=== PATIENT | female | born 1990 | race Caucasian/White ===

== ENCOUNTER → 2022-03-23 | Outpatient (CLI) | payer BC, SELFPAY ==
[2022-03-23 11:27] LABS: T4 Free Direct 1.04 ng/dL (0.76-1.46); Thyroid Stim Hormone (TSH) 2.58 uIU/mL (0.358-3.74)
== END | disposition home or self-care (01) ==
PROVIDERS: PCP Family Medicine; Visit Provider Obstetrics & Gynecology Reproductive Endocrinology
DX: E02 Subclinical iodine-deficiency hypothyroidism (principal)
CPT/HCPCS: 36415; 84439; 84443

== ENCOUNTER → 2022-03-27 | Outpatient (CLI) | payer BC, SELFPAY ==
[2022-03-27 09:41] LABS: T4 Free Direct 1.03 ng/dL (0.76-1.46); Thyroid Stim Hormone (TSH) 2.88 uIU/mL (0.358-3.74)
[2022-03-29 00:06] LABS: Thyroid Peroxidase AB < 8 IU/mL (0-34)
[2022-03-29 09:05] LABS: Thyroglobulin Antibody < 1.0 IU/mL (0.0-0.9)
== END | disposition home or self-care (01) ==
LOC: LAB 08:35
PROVIDERS: PCP Family Medicine; Referring Provider Obstetrics & Gynecology Reproductive Endocrinology; Visit Provider Obstetrics & Gynecology Reproductive Endocrinology
DX: E02 Subclinical iodine-deficiency hypothyroidism (principal)
CPT/HCPCS: 36415; 84439; 84443; 86376; 86800

== ENCOUNTER → 2022-04-25 | Outpatient (CLI) | payer OTHER, BC, SELFPAY ==
[2022-04-25 10:35] LABS: T4 Free Direct 1.14 ng/dL (0.76-1.46); Thyroid Stim Hormone (TSH) 2.16 uIU/mL (0.358-3.74)
== END | disposition home or self-care (01) ==
PROVIDERS: PCP Family Medicine; Referring Provider Obstetrics & Gynecology Reproductive Endocrinology; Visit Provider Obstetrics & Gynecology Reproductive Endocrinology
DX: E02 Subclinical iodine-deficiency hypothyroidism (principal)
CPT/HCPCS: 36415; 84439; 84443

== ENCOUNTER → 2022-07-11 | Outpatient (CLI) | payer OTHER, SELFPAY ==
[2022-07-13 22:06] LABS: Chlamydia By Nucleic Acid AMP Negative (Negative)
[2022-07-13 22:35] LABS: Gonococcus By Nucleic Acid AMP Negative (Negative)
== END | disposition home or self-care (01) ==
LOC: LABSPEC 14:05
PROVIDERS: PCP Family Medicine; Visit Provider Obstetrics & Gynecology
DX: Z34.90 Encounter for supervision of normal pregnancy, unspecified, unspecified trimester (principal)
CPT/HCPCS: 87086; 87088; 87491; 87591

== ENCOUNTER → 2022-07-17 | Outpatient (CLI) | payer OTHER, SELFPAY ==
[2022-07-17 12:53] LABS: NATERA MAILED SPECIMEN
[2022-07-17 15:23] LABS: Absolute Lymphocyte Count 1.91 X10^3/uL (0.83-4.51); Basophil# 0.05 X10^3/uL; Basophil% 0.5 % (0-1); Eosinophil# 0.31 X10^3/uL; Eosinophils% 3.1 % (0-5); Hematocrit 39.2 % (37-47); Hemoglobin 14.3 g/dL (12.0-15.0); Lymphocyte # 1.91 X10^3/ul (0.83-4.51); Lymphocyte % 19.4 % (19-41); Mean Corp Hgb Conc 36.5 g/dL (32-36); Mean Corpuscular Hgb 32.9 pg (27.0-32.0); Mean Corpuscular Volume 90.1 fL (81-99); Mean Platelet Vol. 12.4 fl (6.2-12.0); Monocyte# 0.49 X10^3/uL; NRBC Flagged by Analyzer 0 % (0-5); Neutrophil # 7.03 X10^3/uL (2.7-7.7); Neutrophil % 71.3 % (47-70); Platelet Count 220 K/mm3 (150-450); RBC Distribution Width SD 42.7 fl (35.1-43.9); Red Blood Count 4.35 M/mm3 (4.2-5.4); White Blood Count 9.9 K/mm3 (4.4-11.0)
[2022-07-17 15:46] LABS: Thyroid Stim Hormone (TSH) 0.66 uIU/mL (0.358-3.74)
[2022-07-17 22:01] LABS: HIV - WCH Non-Reactive (Nonreactive); Hepatitis B Surface Antigen Non-Reactive (Nonreactive); Hepatitis C Antibody Non-Reactive (Nonreactive); Rubella IgG Reactive (Nonreactive); Syphilis Antibodies Non-reactive
== END | disposition home or self-care (01) ==
LOC: MTLAB 11:47
PROVIDERS: PCP Family Medicine; Referring Provider Obstetrics & Gynecology; Visit Provider Obstetrics & Gynecology
DX: Z34.90 Encounter for supervision of normal pregnancy, unspecified, unspecified trimester (principal)
CPT/HCPCS: 36415; 84443; 85025; 86703; 86762; 86780; 86803; 86850; 86900; 86901; 87340

== ENCOUNTER → 2022-08-29 | Outpatient (CLI) | payer OTHER, SELFPAY ==
[2022-08-29 15:39] LABS: Thyroid Stim Hormone (TSH) 0.92 uIU/mL (0.358-3.74)
== END | disposition home or self-care (01) ==
PROVIDERS: PCP Family Medicine; Referring Provider Nurse Practitioner Women's Health; Visit Provider Nurse Practitioner Women's Health
DX: Z36.1 Encounter for antenatal screening for raised alphafetoprotein level (principal); E03.9 Hypothyroidism, unspecified
CPT/HCPCS: 36415; 84439; 84443

== ENCOUNTER → 2022-09-21 | Outpatient (CLI) | payer OTHER, SELFPAY ==
--- NOTE | 2022-09-21 13:18 | US_ITS ---
STUDY: SECOND AND THIRD TRIMESTER OBSTETRICAL ULTRASOUND REASON FOR EXAM: Female, 32 years old encounter for anatomy scan LMP: TECHNIQUE: Transabdominal and transvaginal TECHNICAL QUALITY: Adequate. PRIOR ULTRASOUND: None. FINDINGS: There is a single intrauterine fetus. The fetus is in a cephalic presentation. There is demonstrated cardiac activity with a heart rate of 158 bpm. There is a normal amniotic fluid volume. The largest amniotic fluid pocket measures 5.6 x 3.9 cm.. The placenta is anterior and low-lying 1.6 cm distal to the internal os There are Grade 1 placental changes. The cervix measures 4.6 cm in length. The bilateral adnexal regions are normal. BIOMETRY: BPD: 4.7 cm: 20 weeks, 2 days HC: 17.2 cm: 19 weeks, 6 days AC: 15.3 cm: 20 weeks, 3 days FL: 3.4 cm: 20 weeks, 5 days CI: 0.79 FL/BPD: 0.72 FL/HC: FL/AC: 0.22 HC/AC: 1.13 age by current US: 20 weeks, 0 days. TETO by current US: February 08, 2023. Estimated weight: 360 grams, +/- 54 grams, 67 %.. Age by LMP: 20 weeks, 1 days. TETO by LMP: February 07, 2023. ANATOMY: Cranium: Normal lateral ventricles. Normal choroid plexus. Normal cerebellum. Normal cisterna magna. Normal face, nose and lips. Chest: Normal 4-chamber heart. Abdomen/Pelvis: Normal diaphragm. Normal stomach. Normal abdominal wall. Normal cord insertion. Normal 3 vessel cord. Normal kidneys. Normal bladder. Spine: Normal cervical spine. Normal thoracic spine. Normal lumbar spine. Normal sacrum. Extremities: Normal bilateral upper extremities. Normal bilateral lower extremities. IMPRESSION: Viable intrauterine gestation approximately 20 weeks gestational age. Low-lying anterior placenta but no evidence for placenta previa No significant abnormality Electronically Signed: John Ferguson MD at 22:08 EDT , STUDY: Second TRIMESTER OBSTETRICAL ULTRASOUND REASON FOR EXAM: Female, 32 years old encounter for anatomy scan LMP: TECHNIQUE: Transvaginal TECHNICAL QUALITY: Adequate. PRIOR ULTRASOUND: None. FINDINGS: There is a viable intrauterine gestation approximately 20 weeks gestational age with fetus currently in cephalic position and the EDC of February 08, 2023. cardiac activity is noted with heart rate of 158 bpm. . Amniotic fluid index is normal with largest pocket of 5.6 x 3.9 cm. Placenta is anterior in location demonstrating grade 1 physiology without evidence for placenta previa. Examination of the fetus demonstrated no evidence for gross anomaly. US/OB Anatomy Scan IMPRESSION: Viable intrauterine gestation approximately 20 weeks gestational age without significant abnormality Electronically Signed: John Ferguson MD at 22:11 EDT ,
== END | disposition home or self-care (01) ==
LOC: OPUS 13:17
PROVIDERS: PCP Family Medicine; Referring Provider Obstetrics & Gynecology; Visit Provider Obstetrics & Gynecology
DX: O09.90 Supervision of high risk pregnancy, unspecified, unspecified trimester (principal); Z3A.00 Weeks of gestation of pregnancy not specified
CPT/HCPCS: 76805; 76817

== ENCOUNTER → 2022-10-25 | Outpatient (CLI) | payer OTHER, SELFPAY | END | disposition home or self-care (01) | LOC: LABSPEC 13:17 | PROVIDERS: PCP Family Medicine; Referring Provider Advanced Practice Midwife; Visit Provider Advanced Practice Midwife | DX: R59.1 Generalized enlarged lymph nodes (principal); A49.9 Bacterial infection, unspecified | CPT/HCPCS: 87070; 87205 ==

== ENCOUNTER → 2022-10-26 | Outpatient (CLI) | payer OTHER, SELFPAY | END | disposition home or self-care (01) | LOC: MTLAB 14:40 | PROVIDERS: PCP Family Medicine; Referring Provider Advanced Practice Midwife; Visit Provider Advanced Practice Midwife | DX: A49.9 Bacterial infection, unspecified (principal) | CPT/HCPCS: 87086; 87088 ==

== ENCOUNTER → 2022-11-16 | Outpatient (CLI) | payer OTHER, SELFPAY ==
--- NOTE | 2022-11-16 14:13 | US_ITS ---
STUDY: SECOND AND THIRD TRIMESTER OBSTETRICAL ULTRASOUND - LIMITED REASON FOR EXAM: Female, 32 years old placenta location LMP: May 03, 2022. PRIOR ULTRASOUND: Comparison is made with prior study dated September 21, 2022. TECHNIQUE: Transabdominal TECHNICAL QUALITY: Adequate. FINDINGS: There is a single intrauterine fetus. The fetus is in a cephalic presentation. There is demonstrated cardiac activity with a heart rate of 165 bpm. There is a normal amniotic fluid volume. The largest amniotic fluid pocket measures 4.1 cm x 5.6 cm. The amniotic fluid index (ANTHONY) is within normal limits. The placenta is anterior in location and is not low lying. There are Grade 0 placental changes. The cervix measures 3.4 cm in length. BIOMETRY: Age by LMP: 28 weeks, 1 days. TETO by LMP: February 07, 2023. US/OB Limited (No Biometrics) IMPRESSION: The placenta lies along the anterior wall of the uterus. No evidence of placenta previa. Electronically Signed: Rashaun Mcmanus MD at 11:20 EDT ,
[2022-11-16 14:17] LABS: Absolute Lymphocyte Count 2.73 X10^3/uL (0.83-4.51); Absolute Neutrophil Count 10.4 X10^3/uL (2.0-7.7); Basophil# 0.09 X10^3/uL; Basophil% 0.6 % (0-1); Eosinophils% 2.7 % (0-5); Hematocrit 35.6 % (37-47); Hemoglobin 12.9 g/dL (12.0-15.0); Lymphocyte # 2.73 X10^3/ul (0.83-4.51); Lymphocyte % 18.3 % (19-41); Mean Corp Hgb Conc 36.2 g/dL (32-36); Mean Corpuscular Hgb 35.2 pg (27.0-32.0); Mean Corpuscular Volume 97.3 fL (81-99); Mean Platelet Vol. 11.9 fl (6.2-12.0); Monocyte# 1.05 X10^3/uL; NRBC Flagged by Analyzer 0.2 % (0-5); Neutrophil # 10.38 X10^3/uL (2.7-7.7); Neutrophil % 69.5 % (47-70); Platelet Count 203 K/mm3 (150-450); RBC Distribution Width CV 15.9 % (11.6-14.6); RBC Distribution Width SD 56.6 fl (35.1-43.9); Red Blood Count 3.66 M/mm3 (4.2-5.4); White Blood Count 14.9 K/mm3 (4.4-11.0)
[2022-11-16 14:46] LABS: Glucose Challenge Gest 1H 50g 134 mg/dL (70-140)
[2022-11-16 15:19] LABS: HIV - WCH Non-Reactive (Nonreactive); Syphilis Antibodies Non-reactive
== END | disposition home or self-care (01) ==
LOC: OPUS 13:53
PROVIDERS: Advanced Practice Midwife; PCP Family Medicine; Referring Provider Obstetrics & Gynecology; Visit Provider Obstetrics & Gynecology
DX: O09.90 Supervision of high risk pregnancy, unspecified, unspecified trimester (principal); O44.40 Low lying placenta NOS or without hemorrhage, unspecified trimester; Z3A.00 Weeks of gestation of pregnancy not specified
CPT/HCPCS: 76815; 82950; 85025; 86703; 86780; 86900; 86901

== ENCOUNTER → 2022-11-29 | Outpatient (CLI) | payer OTHER, SELFPAY ==
[2022-11-29 18:08] LABS: T4 Free Direct 0.84 ng/dL (0.76-1.46)
== END | disposition home or self-care (01) ==
LOC: LAB 16:15
PROVIDERS: PCP Family Medicine; Referring Provider Obstetrics & Gynecology; Visit Provider Obstetrics & Gynecology
DX: E03.9 Hypothyroidism, unspecified (principal)
CPT/HCPCS: 36415; 84439; 84443

== ENCOUNTER → 2022-12-01 | Outpatient (CLI) | payer OTHER, SELFPAY ==
--- NOTE | 2022-12-01 13:04 | VDLE_ITS ---
Reason For Study: RT GROIN PAIN RIGHT GSV is normal. CFV is compressible, spontaneous, phasic, competent and demonstrates normal augmentation. FV is compressible, spontaneous, phasic, competent and demonstrates normal augmentation. POP V is compressible, spontaneous, phasic, competent and demonstrates normal augmentation. T/P Trunk is compressible. PTV is compressible. RT PerV is compressible. Procedure This is a venous duplex using B-mode, color flow and spectral Doppler. Exam performed in department. A preliminary report was called and/or faxed to Dr. Weeks @ [phone] @ 1:50 pm. VL/Venous Duplex US, Unilateral Interpretation Summary There is no evidence of right lower extremity deep vein thrombosis. Right great saphenous vein appears patent and compressible segmentally. Ordering Physician: Paola Weeks Referring Physician: Shannan Fabian Performed By: Kristie Esteves, KEYON, RVT
--- NOTE | 2022-12-01 13:41 | US_ITS ---
HISTORY: right groin mass, palpable lump. TECHNIQUE: Routine and color duplex imaging of the right groin. 14 images. Comparison none. FINDINGS: RIGHT GROIN: 3 x 10 x 10 mm oval hypoechoic nodule in the region of interest US/Ext Non Vasc Limited/Soft Tiss IMPRESSION: 1 cm nodule or lymph node in the right groin, nonspecific. Electronically Signed: Aby Lino MD at 12:53 EDT ,
== END | disposition home or self-care (01) ==
LOC: CVS 13:03
PROVIDERS: PCP Family Medicine; Referring Provider Obstetrics & Gynecology; Visit Provider Obstetrics & Gynecology
DX: R10.30 Lower abdominal pain, unspecified (principal)
CPT/HCPCS: 76882; 93971

== ENCOUNTER → 2023-01-10 | Outpatient (CLI) | payer OTHER, SELFPAY | END | disposition home or self-care (01) | PROVIDERS: PCP Family Medicine; Visit Provider Obstetrics & Gynecology | DX: O09.90 Supervision of high risk pregnancy, unspecified, unspecified trimester (principal); Z3A.00 Weeks of gestation of pregnancy not specified | CPT/HCPCS: 87081 ==

== ENCOUNTER → 2023-01-22 | Outpatient (CLI) | payer OTHER, SELFPAY ==
--- NOTE | 2023-01-22 08:46 | US_ITS ---
STUDY: SECOND AND THIRD TRIMESTER OBSTETRICAL ULTRASOUND - LIMITED REASON FOR EXAM: Female, 33 years old growth LMP: May 06, 2022. PRIOR ULTRASOUND: Comparison is made with prior study dated September 21, 2022. TECHNIQUE: Transabdominal TECHNICAL QUALITY: Adequate. FINDINGS: There is a single intrauterine fetus. The fetus is in a cephalic presentation. There is demonstrated cardiac activity with a heart rate of 137 bpm. There is a normal amniotic fluid volume. The largest amniotic fluid pocket measures 3.36 cm. The amniotic fluid index (ANTHONY) is 10.18 cm. The placenta is anterior in location and is not low lying. There are Grade 3 placental changes. The cervix was not measured due to head positioning. BIOMETRY: BPD: 9.13 cm: 37 weeks, 0 days HC: 32.86 cm: 37 weeks, 2 days AC: 36.5 cm: 40 weeks, 3 days FL: 7.57 cm: 38 weeks, 5 days Age by LMP: 37 weeks, 4 days. TETO by LMP: February 08, 2023. age by prior US: 37 weeks, 4 days. TETO by prior US: February 08, 2023. age by current US: 38 weeks, 3 days. TETO by current US: February 02, 2023. Estimated weight: 3808 grams, +/- 571 grams, 94 percentile. US/OB Limited With Biometrics IMPRESSION: Single live intrauterine gestation with a mean gestational age of 37 weeks and 4 days. The measurements obtained today fall within the normal expected range. Electronically Signed: Rashaun Mcmanus MD at 15:50 EDT ,
== END | disposition home or self-care (01) ==
LOC: OPUS 08:45
PROVIDERS: PCP Family Medicine; Referring Provider Obstetrics & Gynecology; Visit Provider Obstetrics & Gynecology
DX: Z78.9 Other specified health status (principal)
CPT/HCPCS: 76816

== ENCOUNTER 2023-02-01 19:10 | Inpatient (IN) | payer OTHER, SELFPAY ==
[2023-02-01 19:35] VITALS: BMI 33.0
[2023-02-01 19:49] LABS: Absolute Lymphocyte Count 4.01 X10^3/uL (0.83-4.51); Basophil% 0.6 % (0-1); Eosinophil# 0.26 X10^3/uL; Eosinophils% 1.7 % (0-5); Hematocrit 34.3 % (37-47); Hemoglobin 12.1 g/dL (12.0-15.0); Lymphocyte # 4.01 X10^3/ul (0.83-4.51); Lymphocyte % 25.8 % (19-41); Mean Corp Hgb Conc 35.3 g/dL (32-36); Mean Corpuscular Volume 96.3 fL (81-99); Mean Platelet Vol. 13.5 fl (6.2-12.0); Monocyte# 1.91 X10^3/uL; Monocyte% 12.3 % (0-10); NRBC Flagged by Analyzer 1.2 % (0-5); Neutrophil # 8.99 X10^3/uL (2.7-7.7); Neutrophil % 57.9 % (47-70); POSITIVE DIFFERENTIAL YES; Platelet Count 229 K/mm3 (150-450); RBC Distribution Width CV 16.7 % (11.6-14.6); RBC Distribution Width SD 57.5 fl (35.1-43.9); Red Blood Count 3.56 M/mm3 (4.2-5.4); White Blood Count 15.5 K/mm3 (4.4-11.0)
[2023-02-01 19:54] LABS: Differential Indicated SCAN CRITERIA MET
[2023-02-01 19:55] VITALS: TEMP 36.3
[2023-02-01 19:56] VITALS: BP 121/70
[2023-02-01 19:57] VITALS: PULSE 86; O2SAT 98
[2023-02-01 20:16] LABS: Anisocytosis RARE; Macrocytosis RARE; Platelet Estimate ADEQUATE (ADEQ); Red Cell Morphology N CHROM NORMAL (NORM C&C)
[2023-02-01 20:23] LABS: Syphilis Antibodies Non-reactive
[2023-02-01] MEDS: miSOPROStol 25 MCG TABLET VAGINAL (21:16)
[2023-02-01] MEDS: DiphenhydrAMINE 25 MG Capsule 50 MG PO (22:29)
[2023-02-01 23:58] VITALS: TEMP 36.3
[2023-02-01 23:59] VITALS: BP 112/56; PULSE 77; O2SAT 97
[2023-02-02] VITALS (76 sets, daily range): BP systolic 99–189; BP diastolic 51–117; PULSE 66–108; RESP 16; TEMP 35.9–37.8; O2SAT 80–100
[2023-02-02] MEDS: miSOPROStol 25 MCG TABLET 50 MCG VAGINAL (03:24)
--- NOTE | 2023-02-02 07:50 | PCM.HP.OB ---
HPI - General General Date of Admission: 02/01/23 Date of Service: 02/01/23 HPI Narrative KATIE ARAUJO, is a 33 F at 39.0 weeks who presents for IOL for IVF. Maternal Data Information TETO Calculator Estimated Delivery Date Method Current WG Current Estimate 02/08/23 Manual 39w 1d transfer at 5 day embryo Other Estimates 02/07/23 Ultrasound #1 39w 2d 02/13/23 Conception 38w 3d Final TETO: 02/07/23 Final TETO Source: US >20 weeks Gestational age: 39.1 weeks PFSH PFSH Medical History (Updated 02/02/23 @ 08:00 by Niya Armstrong CNM) COVID-19 Endometriosis Infertility Raynauds syndrome Home Medications multivitamin no.47-iron fum 27 mg-folate no.1 1 mg-dha 300 mg capsule (PNV-DHA) cap PO 07/06/22 [History Last Taken Unknown] albuterol sulfate 90 mcg/actuation aerosol inhaler 2 puff inhalation Q6H PRN shortness of breath or wheezing #8.5 grams 08/22/22 [Rx Last Taken Unknown] levothyroxine 25 mcg tablet 25 mcg PO DAILY #90 tabs 09/26/22 [Rx Last Taken Unknown] Allergy/AdvReac Type Severity Reaction Status Date / Time No Known Allergies Allergy Verified 02/02/23 06:39 Family History Father Lung cancer, Onset Age: 42 Mother Lymphoma, Onset Age: 54 no significant family history Surgical History (Updated 02/01/23 @ 19:40 by Rosemarie Peacock) History of surgery Hx of laparoscopy Hx of tonsillectomy Hx of wisdom tooth extraction Social History adopted: No household members: spouse housing: house current occupational status: employed 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 current occupational exposures/hazards: No pets and animals: Yes pets and animals: dog(s) history of recent travel: No sexually active: Yes Smoking Status: Never smoker alcohol intake: never substance use type: does not use well-balanced diet: daily or most days caffeine: No eating out: rarely or never during the past year weight has: increased > 10 lbs what type of physical activity do you participate in: walking, yoga and weight training frequency: 3-4 times per week duration: 30-45 minutes/day diego/yazidism: None seatbelt use: always do you feel safe at home: Yes additional social history: - Yayo History 1 Elective abortions Hx Para 0 Spontaneous abortions Hx # Term Pregnancies Ectopic pregnancies Hx # Pregnancies Multiple births # of living children Visit Details Expected Delivery Route/Plan Labor Preferences- CB/BF classes: Aug labor support person: [] labor intervention preferences: [] pain management options preferred: [] cut cord/dad catch: [] : yes PP control planned: [] discussed possible routes of delivery and associated risks: [] special requests: [] Plans Covid status: discussed Flu vaccine: discussed Tdap vaccine: [] Rhogam: [] LARC form signed: done Problem list reviewed and updated with the most current plan of care details and appropriate orders placed. Relevant counseling for the gestational age provided. Continue routine care and follow up unless otherwise noted in visit notes/problem list details OB Flowsheet Initial Weight: Not Recorded Date <del>?</del> EGA Weight BP Urine Prot <del>?</del> Glucose FHR FuHt Pres Dilation <del>?</del> Effaced St Visit Note 07/11/22 <del>?</del> 9w 5d 180 lb 124/86 <del>?</del> 171 <del>?</del> JV- IVF preg (transferred at 5 days old) TETO 02/08/23. wants genetic testing. 08/08/22 <del>?</del> 13w 5d 186 lb 6 oz 118/77 Negative <del>?</del> Negative 160 <del>?</del> SM- no vb crmaping 08/29/22 <del>?</del> 16w 5d 190 lb 124/82 Negative <del>?</del> Negative 156 <del>?</del> MH-No Vb, cramping. Plans [facility] anatomy US. Echo scheduled. Thyroid and AFP labs today 09/27/22 <del>?</del> 20w 6d 197 lb 8 oz 127/72 Negative <del>?</del> Negative 145 20 <del>?</del> KW- + FM. KW- + FM. no vb/cramping. no concerns. plan for thyroid labs with 28 week labs 10/25/22 <del>?</del> 24w 6d 200 lb 2 oz 124/90 Negative <del>?</del> Negative 140 24 <del>?</del> KW- +FM. no lof/vb/ctx. patient cancelled Echo. Standing TSH labs. 28 week labs ordered. has palpable lump on right groin. she has had hx of recurrent BV and UTIs. culture done. warm compresses and epsom salt baths until results of cultures. US if negative 11/29/22 <del>?</del> 29w 6d 207 lb 6 oz 118/83 Negative <del>?</del> Negative 147 29 <del>?</del> JV- still has pain in right groin. will order ultrasound. It does feel firm and is tender to touch. normal 1 hr gct. no longer low lying placenta tdap today. needs tsh. 12/14/22 <del>?</del> 32w 0d 208 lb 4 oz 118/74 Negative <del>?</del> Negative 145 31 <del>?</del> KW-+fm. no lof/vb/ctx. no concerns today. larc done. has ALC consult sunday. Babymoon tomorrow 12/27/22 <del>?</del> 33w 6d 212 lb 8 oz 121/79 <del>?</del> 151 34 <del>?</del> JV- no lof, vaginal bleeding, or dec fm. She is getting tired at work and deciding when to stop working. does not want to miss out on time with baby. growth scan for 36 weeks ordered. 01/10/23 <del>?</del> 35w 6d 213 lb 8 oz 115/77 Negative <del>?</del> Negative 138 35.5 Cephalic 0 <del>?</del> JV- pt prefers gbs today. IOL planned or 39 weeks. no lof, vaginal bleeding, or dec fm. 01/22/23 <del>?</del> 37w 4d 206 lb 8 oz 122/83 Negative <del>?</del> Negative 145 37 Cephalic <del>?</del> KW-had growth US today. GBS neg. COVID dx-started on asa 81mg. IOL scheduled for 39 weeks. NST today 01/29/23 <del>?</del> 38w 4d 211 lb 4 oz 211 lb 4 oz 124/84 Negative <del>?</del> Negative 140 38 Cephalic 0.5 <del>?</del> LC- no ctx.vb//lof. iol set up for -cytotec. consent obtained. LC- no ctx.vb//lof. iol set up for -cytotec. consent obtained. nst reactive today in office. NST FHR Rate Baby A Baseline: 135 Variability:: Moderate Accelerations:: 15 x 15 Decelerations:: None NST Reactive:: Yes FHR Category:: Category I Uterine Activity:: 1-3 minutes, mild cramping ROS Constitutional Constitutional: Denies change in weight, fatigue, fever(s), headache(s), poor appetite or weakness Eyes Eyes: Denies blurry vision, change in vision, floaters, seeing flashes or spots in vision ENT HEENT: Denies dizziness, headache(s), loss taste/smell or sore throat Cardiovascular Cardiovascular: Denies chest pain, dizziness, dyspnea, irregular heart rhythm, lightheadedness, palpitations or rapid heart rate Respiratory/Chest Respiratory/Chest: Denies change in mental status, chest tightness, cough, dyspnea or breast pain Gastrointestinal Gastrointestinal: Denies anorexia, chewing difficulty, constipation, diarrhea or weight changes Genitourinary Genitourinary: Denies difficulty urinating, dysuria, flank pain, genital pain, urinary frequency or urinary urgency Musculoskeletal Musculoskeletal: Denies back pain, difficulty walking, extremity pain, joint pain, muscle cramps or muscle weakness Integumentary Integumentary: Denies lesions or unusual bruising Neurologic Neurologic: Denies abnormal movements, abnormal speech, dizziness, numbness, seizure-like activity, syncope or weakness Psychiatric Psychiatric: Denies behavioral changes, change in appetite, confusion, depression, homicidal ideation, suicidal ideation or suicidal thoughts Endocrine Endocrinology: Denies excessive sweating, polydipsia or polyuria Hematologic/Lymphatic Hematologic/Lymphatic: Denies anemia Allergic/Immunologic Allergic/Immunologic: Denies itchy eyes, lip swelling, throat swelling, tongue swelling or wheezing Vital Signs Vital Signs Vital Signs: 02/01/23 19:56 02/01/23 19:57 02/01/23 19:57 Temperature Pulse Rate 86 Blood Pressure 121/70 H BP Systolic 121 BP Diastolic 70 Pulse Ox 98 02/01/23 19:55 02/01/23 23:59 02/01/23 23:59 Temperature 97.3 F L Pulse Rate 77 Blood Pressure 112/56 L BP Systolic 112 BP Diastolic 56 Pulse Ox 02/01/23 23:59 02/01/23 23:58 02/02/23 03:25 Temperature 97.4 F L Pulse Rate Blood Pressure 124/67 H BP Systolic 124 BP Diastolic 67 Pulse Ox 97 02/02/23 03:25 02/02/23 03:25 Temperature 96.6 F L Pulse Rate 70 Blood Pressure BP Systolic BP Diastolic Pulse Ox Weight Weight: 211 lb 6.4 oz Body Mass Index (BMI) 33.0 Physical Exam Const alert, oriented x3 and no apparent distress General Appearance: cooperative Orientation / Consciousness: awake HEENT normocephalic Neck full ROM Lymph Lymphatic: no lymphadenopathy noted Chest inspection of chest normal Resp normal respiratory effort and normal air movement Effort and Inspection: able to speak in complete sentences and symmetric chest movement GI soft to palpation and non-tender Inspection: gravid Palpation: soft; Negative for tender external exam normal Manual OB Exam: presentation cephalic, dilated 3, effaced 70 and station -1 Back/Spine normal to inspection Extremity normal to inspection and full ROM Skin no rashes or lesions noted Psych mental status grossly normal Appearance: grossly normal Speech: normal speech Labs Labs Labs: Blood Type O POSITIVE Antibody Screen NEGATIVE Hct 34.3 % (37-47) L Hgb 12.1 g/dL (12.0-15.0) Obstetrics US Syphilis Total Ab Non-reactive Rubella IgG Antibody Reactive (Nonreactive) Hep Bs Antigen Non-Reactive (Nonreactive) Chlamydia DNA ([place]) Negative (Negative) Neisseria gonorrhoeae DNA ([facility]) Negative (Negative) HIV 1&2 Antibody Non-Reactive (Nonreactive) Glucose 1 Hr 50 gm 134 mg/dL (70-140) Miscellaneous Test Assessment & Plan (1) Recurrent bacterial infection: (2) Lymphadenopathy: COMMENT: suspected. right groin- would like to try warm compresses and epsom salt baths before further testing. ultrasound ordered on 11/29 (3) Low-lying placenta: COMMENT: US @ 28 weeks resolved (4) Hypothyroid: COMMENT: check labs q trimester with 28 week labs (5) Conceived by in vitro fertilization: COMMENT: transfer 05/23/22, plan echo [id number] per pt (6) Supervision of high-risk : COMMENT: PRR , TETO 02/13/23, Yayo (7) : QUALIFIERS: Weeks of gestation: 35 weeks Qualified Code(s): Z3A.35 - 35 weeks gestation of COMMENT: GBS negative. NIPT low risk, declined carrier testing (8) COVID-19: COMMENT: Growth US 01/22:94% (9) Encounter for induction of labor: COMMENT: 39 week IOL for IVF PLAN: Patient presents IOL, plan management for with pitocin/AROM. Pain management: plans epidural. GBS negative. Management of any complications: hypothyroid, IVF I have reviewed the [facility] and made any clinically relevant updates. Charges/Coding Multi Select Codes Urinary/Genital Urinary/Genital CPT Codes: No Charge
[2023-02-02] MEDS: Docusate Sodium 100 MG Capsule PO (08:12)
[2023-02-02] MEDS: 0.9% Saline Lock 10 ML Syringe IV (12:25)
[2023-02-02] MEDS: Lactated Ringers 1,000 ML 50 ML IV (12:30)
[2023-02-02] MEDS: LACTATED RINGERS 500 ML 999 ML IV ×2 (12:53→14:35)
[2023-02-02] MEDS: fentaNYL-bupivacaine (epidural) 100 ML BAG EPIDURAL (14:05)
[2023-02-02] MEDS: Oxytocin 15 Units/NS 250ml 15 UNITS/250 ML IV.SOLN 2 UNITS IV (15:35)
[2023-02-02] MEDS: Ondansetron 4 MG/2 ML Vial IV (18:13)
[2023-02-02] MEDS: Lactated Ringers 1,000 ML 200 ML IV (18:22)
[2023-02-02] MEDS: Methylergonovine 0.2 MG/ML Ampul IM (19:31)
[2023-02-02] MEDS: miSOPROStol 200 MCG Tablet 1000 MCG RC (19:34)
[2023-02-02] MEDS: Oxytocin 15 Units/NS 250ml 15 UNITS/250 ML IV.SOLN 83 UNITS IV (19:42)
--- NOTE | 2023-02-02 20:05 | OP.PCM_ITS ---
Assessment & Plan (1) Vaginal delivery: COMMENT: KW IOL at 39 weeks for IVF, girl 02/17 (2) Hypothyroid: COMMENT: check labs q trimester with 28 week labs (3) Conceived by in vitro fertilization: COMMENT: transfer 05/23/22, plan echo [id number] per pt (4) Supervision of high-risk : COMMENT: PRR , TETO 02/13/23, Yayo (5) : QUALIFIERS: Weeks of gestation: 35 weeks Qualified Code(s): Z3A.35 - 35 weeks gestation of COMMENT: GBS negative. NIPT low risk, declined carrier testing (6) COVID-19: COMMENT: Growth US 01/22:94% Maternal Data Information TETO Calculator 2 Estimated Delivery Date Method Current WG Current Estimate 02/08/23 Manual 39w 1d transfer at 5 day embryo Other Estimates 02/07/23 Ultrasound #1 39w 2d 02/13/23 Conception 38w 3d Final TETO: 02/08/23 Final TETO Source: US >20 weeks Gestational age: 39.1 weeks Vaginal Delivery Maternal Presentation Maternal Presentation: Medically Indicated Induction Maternal Presentation: Patient began pushing and delivered the head in the MAISHA presentation. The head was delivered atraumatically no nuchal cord present. The anterior and posterior shoulders delivered without complication followed by the rest of the and the infant was placed on the maternal abdomen. Delayed cord clamping was employed for approximately 4 minutes. Cord was clamped and cut and gentle t raction was applied to the cord and the placenta delivered spontaneously immediately following it was noted to be intact with three-vessel cord. The perineum and vagina were inspected and noted to have a second degree laceration which was repaired in the usual fashion using 3-0 Rapide. EBL was 400. Patient and tolerated delivery well. Apgars 9/9. 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: Niya Armstrong Type of Anesthesia: Epidural Estimated Blood Loss: 450 Time of Delivery: 17:13 Findings Presentation: Vertex Amniotic Membrane Rupture Type: Artificial Amniotic Fluid Description: Clear Placental Delivery Description: Expressed Placenta Disposition: [facility] Cord Vessel Description: 3 Vessels Cord Entanglement: None Infant A Gender: Female (1 minute): 9 (5 minute): 9 Delayed Cord Clamping: Yes Post Vaginal Delivery Medications Given After Delivery: IV Pitocin, IM Methergin and - (cytotec) Episiotomy Description: None Laceration: 2nd degree Complication Complications: None Multi Select Codes Urinary/Genital Urinary/Genital CPT Codes: 29707 Vaginal Delivery [facility]
--- NOTE | 2023-02-02 20:11 | DCINST_ITS ---
Discharge Instructions Diet Discharge Diet: No restrictions Activity Discharge Activity: Return to Normal Activity May resume sexual activity in: 6-8 weeks Dressing / Incision Call your doctor if you observe: Fever of 101 or Higher, Coldness, Increased Pain, Numbness or Tingling, Change in Color, Inability to urinate, Inability to have a bowel movement, Using more than 1 pad per hour, Shortness of breath, Dizziness, Fainting spells, Swelling in the ankles, Chest pain, Increased palpitations (irregular heartbeat), Calf discomfort and Uncontrolled pain Follow Up Care Please Follow Up With: Niya Armstrong CNM When: Please call the office to schedule your follow up appointment in 6 weeks. If you had high blood pressure please call to schedule an appointment in 2 weeks. Test Results: Test results from this visit will be discussed in further detail at your follow- up appointment, if applicable. Discharge Plan Admission Admit Date/Time: 02/01/23 19:10 Attending Provider: Niya Armstrong Primary Care Provider: NAYANA VAZQUEZ Discharge Orders/Prescriptions Prescriptions: No Action PNV-DHA 27 mg iron-1 mg -300 mg capsule PO levothyroxine 25 mcg tablet 25 mcg PO DAILY Qty: 90 3RF albuterol sulfate 90 mcg/actuation HFA aerosol inhaler 2 puff inhalation Q6H PRN (Reason: shortness of breath or wheezing) Qty: 8.5 0RF Referrals / Follow Up: NAYANA VAZQUEZ DO [Primary Care Provider] - Disposition Disposition (needs filled in before D/C Order can be placed): Home, Self Care
[2023-02-02] MEDS: Ibuprofen 600 MG Tablet PO (21:51)
[2023-02-02] MEDS: Senna/Docusate Sodium 1 Tablet PO (21:52)
[2023-02-03] VITALS (10 sets, daily range): BP systolic 96–147; BP diastolic 54–80; PULSE 64–127; RESP 14–16; TEMP 36.2–36.6; O2SAT 98–100
[2023-02-03] MEDS: Acetaminophen 500 MG Tablet 1000 MG PO ×2 (05:41→20:32)
[2023-02-03 06:41] LABS: Hematocrit 30.2 % (37-47); Mean Corp Hgb Conc 36.4 g/dL (32-36); Mean Corpuscular Hgb 34.9 pg (27.0-32.0); Mean Corpuscular Volume 95.9 fL (81-99); Platelet Count 198 K/mm3 (150-450); RBC Distribution Width SD 57.9 fl (35.1-43.9); Red Blood Count 3.15 M/mm3 (4.2-5.4); White Blood Count 18.7 K/mm3 (4.4-11.0)
--- NOTE | 2023-02-03 08:40 | PCM.PN.OB ---
Subjective Subjective Patient doing well without complaints. Tolerating PO. Ambulating and voiding without difficulty. Feeding well. Denies chest pain, shortness of breath, calf pain/swelling, fevers, chills, lightheadedness. Objective Data Objective Data Vital Signs: Vital Signs Temp Pulse Resp BP Pulse Ox O2 Del Method 97.3 F L 83 15 96/54 L 98 Room Air 02/03/23 03:35 02/03/23 07:48 02/03/23 03:35 02/03/23 07:48 02/03/23 07:48 02/02/23 23:52 Oxygen Delivery Method Room Air Weight: 211 lb 6.4 oz Body Mass Index (BMI) 33.0 Intake & Output: Intake and Output for Last 24 Hours 02/01/23 02/02/23 02/03/23 23:59 23:59 23:59 Intake Total 3092.50 / 3092.50 Output Total 1750 / 1750 400 / 400 Balance 1342.50 / 1342.50 -400 / -400 Lab / Micro Data Attestation: I reviewed the patient's lab results. 02/03/23 06:30 Labs: Laboratory Results - last 24 hr 02/03/23 06:30: WBC 18.7 H, RBC 3.15 L, Hgb 11.0 L, Hct 30.2 L, MCV 95.9, MCH 34.9 H, MCHC 36.4 H, RDW Std Deviation 57.9 H, RDW Coeff of Evens 17.0 H, Plt Count 198, MPV 13.0 H ROS Constitutional Constitutional: Reports systems reviewed and no addt'l complaints, except as documented; Denies anorexia or headache(s) Cardiovascular Cardiovascular: Reports systems reviewed and no addt'l complaints, except as documented; Denies dizziness, dyspnea, nausea or tachypnea Respiratory/Chest Respiratory/Chest: Reports systems reviewed and no addt'l complaints, except as documented; Denies cough, dyspnea, shortness of breath at rest or tachypnea Gastrointestinal Gastrointestinal: Reports systems reviewed and no addt'l complaints, except as documented; Denies abdominal pain, constipation or nausea Genitourinary Genitourinary: Reports systems reviewed and no addt'l complaints, except as documented; Denies burning urination, difficulty urinating, dysuria, urinary frequency or urinary incontinence Musculoskeletal Musculoskeletal: Reports systems reviewed and no addt'l complaints, except as documented Integumentary Integumentary: Reports systems reviewed and no addt'l complaints, except as documented Neurologic Neurologic: Reports systems reviewed and no addt'l complaints, except as documented; Denies abnormal speech, dizziness or headache(s) Psychiatric Psychiatric: Reports systems reviewed and no addt'l complaints, except as documented Endocrine Endocrinology: Reports systems reviewed and no addt'l complaints, except as documented Hematologic/Lymphatic Hematologic/Lymphatic: Reports systems reviewed and no addt'l complaints, except as documented Physical Exam Const alert, oriented x3 and no apparent distress Neck full ROM Resp normal respiratory effort, normal air movement and no retractions Effort and Inspection: able to speak in complete sentences and symmetric chest movement GI soft to palpation Bladder / Kidney Exam: bladder normal to palpation Uterus Palpation: uterus fundus Extremity normal to inspection and full ROM Psych mental status grossly normal, thought process normal and cooperative Assessment & Plan (1) Vaginal delivery: COMMENT: KW IOL at 39 weeks for IVF, girl 02/17 PLAN: s/p PPD # 1 1. routine post delivery care 2. breast feeding- support given 3. rh positive 4. rubella immune (2) Hypothyroid: COMMENT: check labs q trimester with 28 week labs (3) Conceived by in vitro fertilization: COMMENT: transfer 05/23/22, plan echo [id number] per pt (4) Supervision of high-risk : COMMENT: PRR , TETO 02/13/23, Yayo (5) : QUALIFIERS: Weeks of gestation: 35 weeks Qualified Code(s): Z3A.35 - 35 weeks gestation of COMMENT: GBS negative. NIPT low risk, declined carrier testing Charges/Coding Multi Select Codes Urinary/Genital Urinary/Genital CPT Codes: No Charge
[2023-02-03] MEDS: Ibuprofen 600 MG Tablet PO (10:11)
[2023-02-03] MEDS: Senna/Docusate Sodium 1 Tablet PO (20:38)
[2023-02-04] MEDS: Ibuprofen 600 MG Tablet PO (01:24)
[2023-02-04 01:41] VITALS: BP 131/81; PULSE 85; RESP 16; TEMP 36.5
--- NOTE | 2023-02-04 04:16 | PCM.PN.OB ---
Subjective Subjective Patient doing well without complaints. Tolerating PO. Ambulating and voiding without difficulty. Feeding well. Denies chest pain, shortness of breath, calf pain/swelling, fevers, chills, lightheadedness. Objective Data Objective Data Vital Signs: Vital Signs Temp Pulse Resp BP Pulse Ox O2 Del Method 97.7 F L 85 16 131/81 H 99 Room Air 02/04/23 01:41 02/04/23 01:41 02/04/23 01:41 02/04/23 01:41 02/03/23 16:30 02/04/23 01:41 Oxygen Delivery Method Room Air Weight: 211 lb 6.4 oz Body Mass Index (BMI) 33.0 Intake & Output: Intake and Output for Last 24 Hours 02/02/23 02/03/23 02/04/23 23:59 23:59 23:59 Intake Total 3092.50 / 3092.50 Output Total 1750 / 1750 400 / 400 Balance 1342.50 / 1342.50 -400 / -400 Lab / Micro Data Attestation: I reviewed the patient's lab results. 02/03/23 06:30 Labs: Laboratory Results - last 24 hr 02/03/23 06:30: WBC 18.7 H, RBC 3.15 L, Hgb 11.0 L, Hct 30.2 L, MCV 95.9, MCH 34.9 H, MCHC 36.4 H, RDW Std Deviation 57.9 H, RDW Coeff of Evens 17.0 H, Plt Count 198, MPV 13.0 H ROS Constitutional Constitutional: Reports systems reviewed and no addt'l complaints, except as documented; Denies anorexia or headache(s) Cardiovascular Cardiovascular: Reports systems reviewed and no addt'l complaints, except as documented; Denies dizziness, dyspnea, nausea or tachypnea Respiratory/Chest Respiratory/Chest: Reports systems reviewed and no addt'l complaints, except as documented; Denies cough, dyspnea, shortness of breath at rest or tachypnea Gastrointestinal Gastrointestinal: Reports systems reviewed and no addt'l complaints, except as documented; Denies abdominal pain, constipation or nausea Genitourinary Genitourinary: Reports systems reviewed and no addt'l complaints, except as documented; Denies burning urination, difficulty urinating, dysuria, urinary frequency or urinary incontinence Musculoskeletal Musculoskeletal: Reports systems reviewed and no addt'l complaints, except as documented Integumentary Integumentary: Reports systems reviewed and no addt'l complaints, except as documented Neurologic Neurologic: Reports systems reviewed and no addt'l complaints, except as documented; Denies abnormal speech, dizziness or headache(s) Psychiatric Psychiatric: Reports systems reviewed and no addt'l complaints, except as documented Endocrine Endocrinology: Reports systems reviewed and no addt'l complaints, except as documented Hematologic/Lymphatic Hematologic/Lymphatic: Reports systems reviewed and no addt'l complaints, except as documented Physical Exam Const alert, oriented x3 and no apparent distress Neck full ROM Resp normal respiratory effort, normal air movement and no retractions Effort and Inspection: able to speak in complete sentences and symmetric chest movement GI soft to palpation Bladder / Kidney Exam: bladder normal to palpation Uterus Palpation: uterus fundus firm Extremity normal to inspection and full ROM Psych mental status grossly normal, thought process normal and cooperative Assessment & Plan (1) Vaginal delivery: COMMENT: KW IOL at 39 weeks for IVF, girl 02/17 PLAN: s/p PPD # 2 1. routine post delivery care 2. breast feeding- support given 3. rh positive 4. rubella immune 5. Discharge home (2) Encounter for induction of labor: COMMENT: 39 week IOL for IVF (3) Lymphadenopathy: COMMENT: suspected. right groin- would like to try warm compresses and epsom salt baths before further testing. ultrasound ordered on 11/29 (4) Hypothyroid: COMMENT: check labs q trimester with 28 week labs (5) Conceived by in vitro fertilization: COMMENT: transfer 05/23/22, plan echo [id number] per pt (6) Supervision of high-risk : COMMENT: PRR , TETO 02/13/23, Yayo (7) : QUALIFIERS: Weeks of gestation: 35 weeks Qualified Code(s): Z3A.35 - 35 weeks gestation of COMMENT: GBS negative. NIPT low risk, declined carrier testing Charges/Coding Multi Select Codes Urinary/Genital Urinary/Genital CPT Codes: No Charge
[2023-02-04 09:15] VITALS: BP 140/81; PULSE 97; RESP 17; TEMP 36.3
[2023-02-04 09:16] VITALS: BP 140/81; PULSE 97
[2023-02-04 13:31] VITALS: BP 134/75; PULSE 103
[2023-02-04 13:32] VITALS: BP 134/75; PULSE 103; RESP 17; TEMP 35.9
[2023-02-05 09:37] LABS: Pathologist Review Reviewed
== END 2023-02-04 14:00 | disposition home or self-care (01) | DRG 807 ==
PROVIDERS: Obstetrics & Gynecology; Admitting Provider Advanced Practice Midwife; PCP Family Medicine; Visit Provider Advanced Practice Midwife
DX: O99.284 Endocrine, nutritional and metabolic diseases complicating childbirth (principal); Z37.0 Single live birth; E03.9 Hypothyroidism, unspecified; O44.43 Low lying placenta NOS or without hemorrhage, third trimester; O70.1 Second degree perineal laceration during delivery; O99.892 Other specified diseases and conditions complicating childbirth; R59.0 Localized enlarged lymph nodes; Z3A.39 39 weeks gestation of pregnancy; Z79.899 Other long term (current) drug therapy; Z86.16 Personal history of COVID-19
CPT/HCPCS: 59025; 59050; 85025; 85027; 86780; 86850; 86900; 86901; 99221; J7120; A4216; G0378; J2405

== ENCOUNTER 2023-02-25 06:56 | Inpatient (IN) | payer OTHER, SELFPAY ==
[2023-02-25] VITALS (33 sets, daily range): BP systolic 87–128; BP diastolic 45–110; PULSE 69–92; RESP 14–19; TEMP 36.3–37.3; O2SAT 15–100; BMI 29.5
--- NOTE | 2023-02-25 | POC_PTH ---
PATIENT: AKTIE ARAUJO LOC: [facility] U#:[id number] AGE/SX: 33/F ROOM: WP009 RE02/25/[address]: Dr. Nat Tellez MD : 1990 BED: 1 DIS: 02/27/2023 SPEC #: [id number] RECD: 02/26/23 12:06 STATUS: ASHLYN RIVKA #: [id number] KIMBERLY: 02/25/23 00:[address]: Nat Tellez DEPT: SURGICAL PATHOLOGY RECD BY: Eladio Garcia ENTERED: 02/26/23 12:06 SP TYPE: PROD CONC OTHR DR: DO Dr. Nidhi SIDDIQUI MD Tissues: Product of conception, NOS Procedures: Surgery Specimen Level IV HEADER OPERATION: Suction dilation and curettage PRE-OP DIAGNOSIS: Retained products of conception TISSUE SUBMITTED: Products of conception MICROSCOPIC DIAGNOSIS Products of conception, dilation and curettage: Inflamed endometrial tissue with focal fibrosis, fragments of myometrium and blood clots. See comment. YENIFER:sayra 02/27/2023 COMMENT The specimen predominantly consists of blood clots. Placental tissue is not identified. The patient is status post vaginal delivery 02/02/2023. Clinical correlation and appropriate follow up are necessary. MICROSCOPIC DESCRIPTION Slides are reviewed. GROSS DESCRIPTION Received in fixative is one container labeled with the patient's name and designated products of conception. The specimen consists of multiple fragments of hemorrhagic soft tissue predominantly consisting of blood clot that in aggregate measure 8.0 x 8.0 x 2.0 cm. tissue is not identified. Parts Runner tissue is submitted in three cassettes. / YENIFER:sayra 02/26/2023 TC:5 CPT: 30817
--- NOTE | 2023-02-25 07:16 | US_ITS ---
STUDY: ULTRASOUND OF THE FEMALE PELVIS - COMPLETE REASON FOR EXAM: Female, 33 years old. hemorrhage LMP: Unknown. TECHNIQUE: Transabdominal and Transvaginal TECHNICAL QUALITY: Adequate. COMPARISON: None. FINDINGS: The uterus is anteverted and is in a midline position. The uterus measures 10.9 x 9.3 x 6.7 cm. Normal uterine cervix. The endometrium measures 25 mm in thickness, and is heterogeneous. There is prominent vascularity and cystic change of the endometrium. There is no demonstrated myometrial mass. I.U.D. - The patient does not have an I.U.D. The right ovary is visualized. The right ovary measures 3.4 x 2.7 x 2.1 cm. There is no right ovarian cyst or ovarian mass. There is no visualized right adnexal mass or complex lesion. There is normal arterial and normal venous vascularity. The left ovary is visualized. The left ovary measures 3.3 x 2.6 x 2.4 cm. There is no left ovarian cyst or ovarian mass. There is no visualized left adnexal mass or complex lesion. There is normal arterial and normal venous vascularity. There is no fluid in the cul-de-sac. The pre void volume of the bladder was 866 ml. US/Transvaginal Non- IMPRESSION: Heterogeneous endometrium with cystic regions and prominent vascularity suggesting retained products of conception. Electronically Signed: Arthur Sullivan MD at 10:08 EDT ,
[2023-02-25 07:24] LABS: Absolute Lymphocyte Count 3.53 X10^3/uL (0.83-4.51); Absolute Neutrophil Count 4.7 X10^3/uL (2.0-7.7); Basophil# 0.11 X10^3/uL; Basophil% 1.1 % (0-1); Eosinophil# 1.12 X10^3/uL; Eosinophils% 10.9 % (0-5); Hemoglobin 13.6 g/dL (12.0-15.0); Lymphocyte # 3.53 X10^3/ul (0.83-4.51); Lymphocyte % 34.3 % (19-41); Mean Corp Hgb Conc 35.8 g/dL (32-36); Mean Corpuscular Hgb 33.8 pg (27.0-32.0); Mean Corpuscular Volume 94.5 fL (81-99); Mean Platelet Vol. 11.8 fl (6.2-12.0); Monocyte# 0.76 X10^3/uL; Monocyte% 7.4 % (0-10); NRBC Flagged by Analyzer 0 % (0-5); Neutrophil # 4.72 X10^3/uL (2.7-7.7); Neutrophil % 45.9 % (47-70); Platelet Count 273 K/mm3 (150-450); RBC Distribution Width CV 13.5 % (11.6-14.6); Red Blood Count 4.02 M/mm3 (4.2-5.4); White Blood Count 10.3 K/mm3 (4.4-11.0)
[2023-02-25] MEDS: 0.9% Normal Saline (1000mL) 1,000 ML 999 ML IV ×2 (07:33→08:00)
[2023-02-25] MEDS: Methylergonovine 0.2 MG/ML Ampul IM (07:33)
[2023-02-25] MEDS: TRANEXAMIC ACID 1,000 MG in 0.9% Normal Saline (100mL Bag) 100 ML 440 MG IV (07:33)
[2023-02-25 07:35] LABS: Anion Gap 6 (5-15); BUN 13 mg/dL (7-18); BUN/Creat Ratio 11.4 RATIO (10-20); Calcium,Total 9.3 mg/dL (8.5-10.1); Chloride 107 mmol/L (98-107); Creatinine, Serum 1.14 mg/dL (0.55-1.02); EST Glomerular Filtration Rate 59 mL/min (>60); Est Glom Filt Rate - Afr Amer 71 mL/min (>60); Estimated Creatinine Clearance 69.53 ml/min; Glucose 97 mg/dL (74-106); Potassium 3.8 mmol/L (3.5-5.1); Sodium Level 140 mmol/L (136-145)
--- NOTE | 2023-02-25 08:04 | ED.VIS.FEGU ---
HPI <Dr. Elliot Hill DO - Last Filed: 02/25/23 23:26> HPI - Female History of Present Illness Chief Complaint: Vag Bleeding Informant: patient and spouse/S.O. Narrative Narrative: Patient is a 33-year-old female with no significant past medical history who presents with vaginal bleeding. She is a G1, P1 who delivered vaginally roughly 3 weeks ago. She states she carried the baby to full-term but had to undergo in vitro fertilization for this . She states that since Sunday she will notice bouts of vaginal bleeding with clots when she typically sits down to breast-feed. She states that the past few days she would pass a clot or 2 and the bleeding would stop. She states however starting Sunday night around 7 PM she began with bleeding and passage of clots that was persistent throughout the night which was abnormal for her. She states because the bleeding has been prolonged she became concerned and secondary to this comes in for evaluation. She denies any history of bleeding disorder or blood thinner use PFS <Dr. Elliot Hill DO - Last Filed: 02/25/23 23:26> [facility] Medical History Conceived by in vitro fertilization COVID-19 Endometriosis Infertility Low-lying placenta Raynauds syndrome Recurrent bacterial infection Vaginal delivery Home Medications multivitamin no.47-iron fum 27 mg-folate no.1 1 mg-dha 300 mg capsule (PNV-DHA) 1 cap PO DAILY 07/06/22 [History Last Taken Unknown] levothyroxine 25 mcg tablet 25 mcg PO DAILY #90 tabs 09/26/22 [Rx Last Taken Unknown] albuterol sulfate 90 mcg/actuation aerosol inhaler 2 puff inhalation Q6H PRN shortness of breath or wheezing 02/25/23 [History Last Taken Unknown] Allergy/AdvReac Type Severity Reaction Status Date / Time No Known Allergies Allergy Verified 02/25/23 06:57 Family History Father Lung cancer, Onset Age: 42 Mother Lymphoma, Onset Age: 54 Surgical History (Updated 02/01/23 @ 19:40 by Rosemarie Peacock) History of surgery Hx of laparoscopy Hx of tonsillectomy Hx of wisdom tooth extraction Social History adopted: No household members: spouse housing: house current occupational status: employed 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 current occupational exposures/hazards: No pets and animals: Yes pets and animals: dog(s) history of recent travel: No sexually active: Yes Smoking Status: Never smoker alcohol intake: never substance use type: does not use well-balanced diet: daily or most days caffeine: No eating out: rarely or never during the past year weight has: increased > 10 lbs what type of physical activity do you participate in: walking, yoga and weight training frequency: 3-4 times per week duration: 30-45 minutes/day diego/sikh: None seatbelt use: always do you feel safe at home: Yes additional social history: - Yayo EASLEY <Dr. Elliot Hill, DO - Last Filed: 02/25/23 23:26> ROS ED Constitutional Constitutional ED: Denies chills or fever(s) Eyes Eyes: Denies change in vision ENT ENT ED: Denies sore throat Cardiovascular Cardiovascular: Denies chest pain or palpitations Respiratory/Chest Respiratory/Chest: Denies cough or dyspnea Gastrointestinal Gastrointestinal: Reports abdominal pain; Denies diarrhea, nausea or vomiting Genitourinary Genitourinary ED: Reports other Details: Positive vaginal bleeding ; Denies dysuria Musculoskeletal Musculoskeletal: Denies myalgias Integumentary Denies rash Neurologic Neurologic: Denies headache(s) Hematologic/Lymphatic Hematologic/Lymphatic: Denies easy bleeding or easy bruising EXAM <Dr. Elliot Hill, DO - Last Filed: 02/25/23 23:26> Physical Exam Const Vital Signs: 02/25/23 06:57 02/25/23 08:13 02/25/23 08:56 Temperature 97.8 F Temperature Source Temporal Pulse Rate 87 69 77 Respiratory Rate 16 14 Blood Pressure 127/83 H 128/82 H 121/69 H Blood Pressure Mean 97 97 86 Blood Pressure Source Blood Pressure Position Pulse Ox 100 98 Oxygen Delivery Method Room Air 02/25/23 09:41 02/25/23 10:34 02/25/23 11:00 Temperature Temperature Source Pulse Rate 74 90 71 Respiratory Rate 16 18 16 Blood Pressure 124/110 H 117/84 H 114/66 Blood Pressure Mean 114 95 82 Blood Pressure Source Monitor Blood Pressure Position Sitting Pulse Ox 98 98 97 Oxygen Delivery Method Room Air Room Air Positive well nourished and well developed General Appearance ED: well developed HEENT Reports moist mucous membranes Eyes PERRL and EOMs intact bilaterally General Eye ED: Yes pale conjunctiva Neck supple Resp normal respiratory effort and clear to auscultation bilaterally Cardio regular rate and regular rhythm GI non-distended GI Narrative: There is mild pain with palpation in the suprapubic region without voluntary guarding or rigidity. No pulsatile mass Auscultation: normoactive bowel sounds Palpation: soft Narrative: External genitalia is normal. Patient does have a large clot at the opening of the vaginal os. This was removed and the speculum was inserted and there was brisk dark red blood filling a quarter to half of the vaginal vault and then patient expressed a large clot consistent with her history. No obvious vaginal laceration noted Extremity normal to inspection Neuro oriented x3 and CN's II-XII intact bilaterally Sensorium / Orientation: alert Psych mental status grossly normal Skin no rashes or lesions noted Skin Narrative: Skin is pale in color but capillary refill remains less than 3 seconds <Dr. Sampson De León, DO - Last Filed: 02/25/23 15:47> Physical Exam Const Vital Signs: 02/25/23 06:57 02/25/23 08:13 02/25/23 08:56 Temperature 97.8 F Temperature Source Temporal Pulse Rate 87 69 77 Respiratory Rate 16 14 Blood Pressure 127/83 H 128/82 H 121/69 H Blood Pressure Mean 97 97 86 Blood Pressure Source Blood Pressure Position Pulse Ox 100 98 Oxygen Delivery Method Room Air 02/25/23 09:41 02/25/23 10:34 02/25/23 11:00 Temperature Temperature Source Pulse Rate 74 90 71 Respiratory Rate 16 18 16 Blood Pressure 124/110 H 117/84 H 114/66 Blood Pressure Mean 114 95 82 Blood Pressure Source Monitor Blood Pressure Position Sitting Pulse Ox 98 98 97 Oxygen Delivery Method Room Air Room Air MDM <Dr. Elliot Hill, DO - Last Filed: 02/25/23 23:26> MDM MDM Narrative Medical decision making narrative: Patient presented to the ER awake and alert with stable vital. She reported that she been passing blood and clots for approximately 12 hours. She is pale with pale conjunctiva concerning for acute blood loss anemia. Secondary to this basic labs with type and screen were obtained and patient was started on IV hydration. TELEVISION WRITER was contacted and they recommended emergent pelvic ultrasound to further assess the cause of her bleeding but recommend patient also received TXA and Methergine. Patient was provided these medications and remained hemodynamically stable. At this time she is pending evaluation by her ultrasound and repeat consultation with TELEVISION WRITER. Therefore patient be signed out to the day physician Dr. De León and these results History & Record Review Discussion w/independent historian: Patient and Significant other Lab Data Attestation: I reviewed the patient's lab results. Labs: Laboratory Results - last 24 hr 02/25/23 02/25/23 07:05 07:27 WBC 10.3 RBC 4.02 L Hgb 13.6 Hct 38.0 MCV 94.5 MCH 33.8 H MCHC 35.8 RDW Std Deviation 47.0 H RDW Coeff of Evens 13.5 Plt Count 273 MPV 11.8 Immature Gran % (Auto) 0.400 Neut % (Auto) 45.9 L Lymph % (Auto) 34.3 Ritchie % (Auto) 7.4 Eos % (Auto) 10.9 H Baso % (Auto) 1.1 H Absolute Neuts (auto) 4.7 Absolute Lymphs (auto) 3.53 Nucleated RBC % 0 PT 13.5 INR 1.0 APTT 32.3 Sodium 140 Potassium 3.8 Chloride 107 Carbon Dioxide 27.0 Anion Gap 6 BUN 13 Creatinine 1.14 H Estim Creat Clear Calc 69.53 Est GFR (MDRD) Af Amer 71 Est GFR (MDRD) Non-Af 59 L BUN/Creatinine Ratio 11.4 Glucose 97 Calcium 9.3 Blood Type Cancelled Cancelled Antibody Screen Cancelled Cancelled Crossmatch See Detail Radiography Diagnostic Testing: Clinical Impression(s) from Imaging Studies Transvaginal US 02/25/23 07:16 IMPRESSION: Heterogeneous endometrium with cystic regions and prominent vascularity suggesting retained products of conception. Electronically Signed: Arthur Sullivan MD at 10:08 EDT , <Dr. Sampson De León, DO - Last Filed: 02/25/23 15:47> [facility] MDM Narrative Medical decision making narrative: Patient presented to the ER awake and alert with stable vital. She reported that she been passing blood and clots for approximately 12 hours. She is pale with pale conjunctiva concerning for acute blood loss anemia. Secondary to this basic labs with type and screen were obtained and patient was started on IV hydration. TELEVISION WRITER was contacted and they recommended emergent pelvic ultrasound to further assess the cause of her bleeding but recommend patient also received TXA and Methergine. Patient was provided these medications and remained hemodynamically stable. At this time she is pending evaluation by her ultrasound and repeat consultation with TELEVISION WRITER. Therefore patient be signed out to the day physician Dr. De León and these results Le: Patient signed out to me pending ultrasound. Results notes concerns for retained products of conception. Reevaluated patient after medication no significant bleeding. Vitals remained stable. I did read discussed with Dr. Gomez, with findings she will be taken to the OR for D&C from the ED. Lab Data Labs: Laboratory Results - last 24 hr 02/25/23 02/25/23 07:05 07:27 WBC 10.3 RBC 4.02 L Hgb 13.6 Hct 38.0 MCV 94.5 MCH 33.8 H MCHC 35.8 RDW Std Deviation 47.0 H RDW Coeff of Evens 13.5 Plt Count 273 MPV 11.8 Immature Gran % (Auto) 0.400 Neut % (Auto) 45.9 L Lymph % (Auto) 34.3 Ritchie % (Auto) 7.4 Eos % (Auto) 10.9 H Baso % (Auto) 1.1 H Absolute Neuts (auto) 4.7 Absolute Lymphs (auto) 3.53 Nucleated RBC % 0 PT 13.5 INR 1.0 APTT 32.3 Sodium 140 Potassium 3.8 Chloride 107 Carbon Dioxide 27.0 Anion Gap 6 BUN 13 Creatinine 1.14 H Estim Creat Clear Calc 69.53 Est GFR (MDRD) Af Amer 71 Est GFR (MDRD) Non-Af 59 L BUN/Creatinine Ratio 11.4 Glucose 97 Calcium 9.3 Blood Type Cancelled Cancelled Antibody Screen Cancelled Cancelled Crossmatch See Detail Radiography Diagnostic Testing: Clinical Impression(s) from Imaging Studies Transvaginal US 02/25/23 07:16 IMPRESSION: Heterogeneous endometrium with cystic regions and prominent vascularity suggesting retained products of conception. Electronically Signed: Arthur Sullivan MD at 10:08 EDT , Discharge Plan Dx/Rx/DC Orders Clinical Impression: hemorrhage Disposition Disposition: Acute Care Hospital [facility] Discharge Date/Time: 02/25/23 11:16
[2023-02-25 08:15] LABS: Prothrombin Time (Protime)PT. 13.5 SECONDS (11.7-14.9)
[2023-02-25 08:16] LABS: Partial Thromboplast Time 32.3 Seconds (24.1-36.2)
--- NOTE | 2023-02-25 10:59 | PCM.HP.STD ---
HPI - General HPI Narrative KATIE ARAUJO, is a 33 F who presents with increasing vaginal bleeding, 3 weeks . she had a resolution of bleeding and then started back up again the last few days, denies any fevers, passed some membranous tissue. [facility] Medical History Conceived by in vitro fertilization COVID-19 Endometriosis Infertility Low-lying placenta Raynauds syndrome Recurrent bacterial infection Vaginal delivery Home Medications multivitamin no.47-iron fum 27 mg-folate no.1 1 mg-dha 300 mg capsule (PNV-DHA) 1 cap PO DAILY 07/06/22 [History Last Taken Unknown] levothyroxine 25 mcg tablet 25 mcg PO DAILY #90 tabs 09/26/22 [Rx Last Taken Unknown] albuterol sulfate 90 mcg/actuation aerosol inhaler 2 puff inhalation Q6H PRN shortness of breath or wheezing 02/25/23 [History Last Taken Unknown] Allergy/AdvReac Type Severity Reaction Status Date / Time No Known Allergies Allergy Verified 02/25/23 06:57 Family History Father Lung cancer, Onset Age: 42 Mother Lymphoma, Onset Age: 54 Surgical History (Updated 02/01/23 @ 19:40 by Rosemarie Peacock) History of surgery Hx of laparoscopy Hx of tonsillectomy Hx of wisdom tooth extraction Social History adopted: No household members: spouse housing: house current occupational status: employed 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 current occupational exposures/hazards: No pets and animals: Yes pets and animals: dog(s) history of recent travel: No sexually active: Yes Smoking Status: Never smoker alcohol intake: never substance use type: does not use well-balanced diet: daily or most days caffeine: No eating out: rarely or never during the past year weight has: increased > 10 lbs what type of physical activity do you participate in: walking, yoga and weight training frequency: 3-4 times per week duration: 30-45 minutes/day diego/congregational: None seatbelt use: always do you feel safe at home: Yes additional social history: - Yayo ROS Constitutional Constitutional: Reports systems reviewed and no addt'l complaints, except as documented; Denies as per HPI, change in weight, fatigue, fever(s), malaise, weakness or other Eyes Eyes: Reports systems reviewed and no addt'l complaints, except as documented; Denies as per HPI, change in vision or other ENT HEENT: Reports systems reviewed and no addt'l complaints, except as documented Respiratory/Chest Respiratory/Chest: Reports systems reviewed and no addt'l complaints, except as documented Gastrointestinal Gastrointestinal: Reports systems reviewed and no addt'l complaints, except as documented and as per HPI Genitourinary Genitourinary: Reports as per HPI Musculoskeletal Musculoskeletal: Reports systems reviewed and no addt'l complaints, except as documented Neurologic Neurologic: Reports systems reviewed and no addt'l complaints, except as documented Psychiatric Psychiatric: Reports systems reviewed and no addt'l complaints, except as documented Endocrine Endocrinology: Reports systems reviewed and no addt'l complaints, except as documented Hematologic/Lymphatic Hematologic/Lymphatic: Reports systems reviewed and no addt'l complaints, except as documented Vital Signs Vital Signs Vital Signs: 02/25/23 06:57 02/25/23 08:13 02/25/23 08:56 Temperature 97.8 F Temperature Source Temporal Pulse Rate 87 69 77 Respiratory Rate 16 14 Blood Pressure 127/83 H 128/82 H 121/69 H Blood Pressure Mean 97 97 86 Blood Pressure Source Blood Pressure Position Pulse Ox 100 98 Oxygen Delivery Method Room Air 02/25/23 09:41 02/25/23 10:34 Temperature Temperature Source Pulse Rate 74 90 Respiratory Rate 16 18 Blood Pressure 124/110 H 117/84 H Blood Pressure Mean 114 95 Blood Pressure Source Monitor Blood Pressure Position Sitting Pulse Ox 98 98 Oxygen Delivery Method Room Air Weight Weight: 188 lb 11.451 oz Body Mass Index (BMI) 29.5 Physical Exam Const alert, oriented x3 and no apparent distress HEENT normocephalic Head and Scalp: atraumatic Eyes EOMs intact bilaterally and conjunctivae normal Neck full ROM, no lymphadenopathy, supple and thyroid normal General: trachea midline Lymph Lymphatic: no lymphadenopathy noted Resp normal respiratory effort, no retractions, no use of accessory muscles and clear to auscultation bilaterally Cardio regular rhythm GI normal to inspection, nondistended, normoactive bowel sounds, soft to palpation, non-distended and no masses Inspection: Negative for abdominal distention Back/Spine no CVA tenderness Extremity normal to inspection Skin no rashes or lesions noted Neuro moves all extremities and deep tendon reflexes 2+ bilaterally Psych mental status grossly normal Results Lab / Micro Data 02/25/23 07:05 02/25/23 07:05 Labs: Laboratory Results - last 24 hr 02/25/23 07:05: WBC 10.3, RBC 4.02 L, Hgb 13.6, Hct 38.0, MCV 94.5, MCH 33.8 H, MCHC 35.8, RDW Std Deviation 47.0 H, RDW Coeff of Evens 13.5, Plt Count 273, MPV 11.8, Immature Gran % (Auto) 0.400, Neut % (Auto) 45.9 L, Lymph % (Auto) 34.3, [place] % (Auto) 7.4, Eos % (Auto) 10.9 H, Baso % (Auto) 1.1 H, Absolute Neuts (auto) 4.7, Absolute Lymphs (auto) 3.53, Nucleated RBC % 0, PT 13.5, INR 1.0, APTT 32.3, Sodium 140, Potassium 3.8, Chloride 107, Carbon Dioxide 27.0, Anion Gap 6, BUN 13, Creatinine 1.14 H, Estim Creat Clear Calc 69.53, Est GFR (MDRD) Af Amer 71, Est GFR (MDRD) Non-Af 59 L, BUN/Creatinine Ratio 11.4, Glucose 97, Calcium 9.3, Blood Type Cancelled, Antibody Screen Cancelled 02/25/23 07:27: Blood Type O POSITIVE, Antibody Screen NEGATIVE Radiology Impression Transvaginal US 02/25/23 07:16 IMPRESSION: Heterogeneous endometrium with cystic regions and prominent vascularity suggesting retained products of conception. Electronically Signed: Arthur Sullivan MD at 10:08 EDT , Assessment & Plan Assessment/Plan (1) Retained products of conception: PLAN: Plan After discussing the patient's diagnosis and treatment plan options, patient wishes to proceed with surgical management. I have discussed with the patient the risks, benefits, and alternatives of the procedure which include but are not limited to risks of anesthesia, bleeding, infection, possible damage to bowel, bladder, or surrounding vasculature which could lead to additional surgery to evaluate any complications. Patient agrees to procedure and wishes to proceed. ACOG/uptodate references given for additional information regarding procedure.
--- NOTE | 2023-02-25 11:01 | OP.PCM_ITS ---
Problems Associated Problem List Diagnoses (1) Retained products of conception: Report of Operation Date of Procedure: 02/25/23 Pre-Operative Diagnosis: see problem list Post-Operative Diagnosis: same Surgery/Procedure Performed:: Suction dilation and curettage Description of Surgical Findings:: retained POCs Surgeon: Nat Tellez farrowing manager: None Type of Anesthesia: Local MAC Special Medications: none Specimen's removed: POC Drains: none Estimated Blood Loss (mL): 1300 Fluids Replaced: crystalloid Description of Procedure: Patient was taken to the operating room from the ER and upon arrival at the OR was noted to have severe brisk heavy bleeding vaginally with approximately 800 EBL before the onset of the procedure. Patient was given 2 g of Ancef SCDs were on preoperatively and patient was prepped and draped in the normal sterile fashion. Patient had been given Methergine and TXA in the ER upon arrival and in the operating room was given Pitocin Hemabate Cytotec and IV fluids. Preop hemoglobin was 13.6. 2 units were called to be typed and crossed due to the brisk amount of bleeding and told to be placed on hold on available. Bedside ultrasound was called to be used to assure that all products were removed. Uterus sounded to 10 cm and a 10 mm suction curette was used to remove retained products of conception. Suction curettage was performed followed by sharp curettage. Intermittent gross bleeding was still encountered despite multiple passes with the suction curette and sharp curette. It was felt to be that all retained products were removed based on ultrasound and sharp curettage evaluation. Bakri balloon was then placed and obtained hemostasis. 100 cc were placed inside the balloon. Minimal bleeding was noted around the balloon and through the catheter. Patient was stable for transfer out of the operating room. Labs were drawn prior to transfer. Patient initially had tachycardia in the 120s but was resolving in the low 100s. She will be transferred to PACU and then labor and delivery for STO. Grafts/Implants Used: none Complications none Admit VTE Documentation VTE Present on Admission: No VTE Mechan Device Prophylaxis: SCD's Procedures Urinary/Genital [id number]: 90366 Curettage,
--- NOTE | 2023-02-25 11:02 | DCINST_ITS ---
Discharge Instructions Diet Discharge Diet: No restrictions Activity Discharge Activity: Return to Normal Activity, May Shower and May Take a Tub Bath (after 1 week) May resume sexual activity in: 1-2 weeks Weight Bearing Status: Weight bearing as tolerated Lifting Restrictions: none Dressing / Incision Call your doctor if you observe: Fever of 101 or Higher, Using more than 1 pad per hour, Shortness of breath and Uncontrolled pain Follow Up Care Please Follow Up With: Nat Tellez MD When: Call [phone] to schedule appointment. Test Results: Test results from this visit will be discussed in further detail at your follow- up appointment, if applicable. Discharge Plan Admission Attending Provider: Nat Tellez Primary Care Provider: NAYANA VAZQUEZ Discharge Orders/Prescriptions Prescriptions: No Action PNV-DHA 27 mg iron-1 mg -300 mg capsule 1 cap PO DAILY levothyroxine 25 mcg tablet 25 mcg PO DAILY Qty: 90 3RF albuterol sulfate 90 mcg/actuation HFA aerosol inhaler 2 puff INHALATION Q6H PRN (Reason: shortness of breath or wheezing) Patient Comments: Inhale 2 puff every 6Yhours As Needed for shortness of breath or wheezing Referrals / Follow Up: NAYANA VAZQUEZ DO [Primary Care Provider] - Disposition Disposition (needs filled in before D/C Order can be placed): Home, Self Care
[2023-02-25] MEDS: Oxytocin 10 UNITS/ML Vial (11:50)
[2023-02-25] MEDS: Carboprost Tromethamine 250 MCG/ML Ampul (11:56)
[2023-02-25] MEDS: miSOPROStol 200 MCG Tablet 1000 MCG PO (12:02)
[2023-02-25] MEDS: TRANEXAMIC ACID 1,000 MG in 0.9% Normal Saline (100mL Bag) 100 ML 660 MG IV (12:05)
[2023-02-25] MEDS: Lactated Ringers 1,000 ML 15 ML IV (12:33)
[2023-02-25 14:05] LABS: Hematocrit 26.9 % (37-47); Hemoglobin 9.4 g/dL (12.0-15.0); Mean Corp Hgb Conc 34.9 g/dL (32-36); Mean Corpuscular Hgb 33.9 pg (27.0-32.0); Mean Corpuscular Volume 97.1 fL (81-99); Platelet Count 313 K/mm3 (150-450); RBC Distribution Width CV 13.8 % (11.6-14.6); RBC Distribution Width SD 49.2 fl (35.1-43.9); Red Blood Count 2.77 M/mm3 (4.2-5.4); White Blood Count 14.2 K/mm3 (4.4-11.0)
[2023-02-25 14:09] LABS: International Normalized Ratio 1.3; Prothrombin Time (Protime)PT. 15.9 SECONDS (11.7-14.9)
[2023-02-25 14:10] LABS: Fibrinogen 175 mg/dl (203-444); Partial Thromboplast Time 28.3 Seconds (24.1-36.2)
[2023-02-25 14:13] LABS: Anion Gap 3 (5-15); BUN 10 mg/dL (7-18); BUN/Creat Ratio 9.5 RATIO (10-20); Calcium,Total 7.3 mg/dL (8.5-10.1); Chloride 116 mmol/L (98-107); Creatinine, Serum 1.05 mg/dL (0.55-1.02); EST Glomerular Filtration Rate 65 mL/min (>60); Est Glom Filt Rate - Afr Amer 79 mL/min (>60); Estimated Creatinine Clearance 75.49 ml/min; Glucose 123 mg/dL (74-106); Potassium 4.4 mmol/L (3.5-5.1); Sodium Level 143 mmol/L (136-145)
--- NOTE | 2023-02-25 14:20 | NURSING ---
Checked tamponade - in the correct place, draining, and stop cock turned to correct position.
[2023-02-25] MEDS: 0.9% Saline Lock 10 ML Syringe IV ×2 (14:45→16:22)
[2023-02-25] MEDS: Oxytocin 15 Units/NS 250ml 15 UNITS/250 ML IV.SOLN 83 UNITS IV (14:45)
[2023-02-25] MEDS: Acetaminophen 500 MG Tablet 1000 MG PO (15:46)
--- NOTE | 2023-02-25 15:54 | PCM.PN.BLA ---
Progress Note bleeding minimal, bps 105/68 HR 80s, reviewed labs borderline DIC but clinically stable recommend repeat lab panel now. reviewed with nursing staff. continue IVFs
[2023-02-25 16:40] LABS: International Normalized Ratio 1.4; Partial Thromboplast Time 24.5 Seconds (24.1-36.2); Prothrombin Time (Protime)PT. 16.8 SECONDS (11.7-14.9)
[2023-02-25 16:47] LABS: Fibrinogen 81 mg/dl (203-444)
[2023-02-25] MEDS: Lactated Ringers 1,000 ML 999 ML IV (17:05)
--- NOTE | 2023-02-25 17:23 | PCM.PN.BLA ---
Progress Note reviewed labs- patient is in DIC, decreasing fibrinogen and increasing PT, unable to get cbc- will transfuse one unit PRBC and FFP now, transfer to ICU. bps 90s over 50s HR 80s-90s, urine output 275 over the last 4 hours, no clinical vaginal bleeding or out of the bakri balloon, IV site clear. urine clear.
--- NOTE | 2023-02-25 17:32 | NURSING ---
Transferred pt to ICU Room 202 and this RN gave telephone report to ANA MARÍA Hill.
--- NOTE | 2023-02-25 18:00 | NURSING ---
food safety auditor and this RN attempting to redraw CBC after the first one clotted at between [id number]. Dr. Tellez on unit at 1705 - notified of low BP (see charting) - MD ordered for pt to be transferred to ICU due to fibrinogen level - MD also ordered 1 unit pRBC, 1 unit of FFP, and 1,000mL bolus of LR. This RN entered those orders and notified blood bank. This RN started bolus and rechecked BP, which had elevated (see charting). light industrial supervisor, nurse discharge planner, and 2 other RNs at attempting to draw CBC and start another IV at 1715. Dr. Tellez also at . light industrial supervisor able to get another IV started, but unable to obtain CBC. Pt transferred at 1732 to ICU room 202. This RN gave telephone report to Liz GOTTI.
--- NOTE | 2023-02-25 18:01 | PN.HOSP_ITS ---
Reason for Visit Reason for Visit: Post bleeding Subjective Subjective Patient is a 33-year-old female with history of hypothyroidism in with unremarkable vaginal 3 weeks ago who presented to [facility] 02/25/2023 due to vaginal bleeding. She had been having some bleeding for the past 4 days but the past 24 hours bleeding increased significantly. She was found to have retained products of conception and was taken to the OR for D&C, in the OR she had significant bleeding and had D&C performed with balloon in place which did tamponade but had estimated blood loss of 1400 cc. Initially had hemoglobin of 13.6 and on recheck was 9.4 and initial fibrinogen of 175 with repeat of 81. Due to concerns for DIC patient transferred to the ICU by her OB and hospitalist consulted. Patient seen at bedside, not having further active bleeding with balloon in place, has 1 unit of FFP and a unit of blood to be given and was placed on Methergine. She reports she occasionally gets headaches and does not feel like her contacts are as useful since she gave but nothing acutely changed today, had not been having increased abdominal pain or cramping until today, no diarrhea, no changes in urination, ROS otherwise negative. Objective Data Objective Data Vital Signs: Vital Signs Temp Pulse Resp BP Pulse Ox O2 Del Method 99.1 F 91 18 96/61 97 Room Air 02/25/23 15:50 02/25/23 15:50 02/25/23 15:50 02/25/23 15:50 02/25/23 15:50 02/25/23 15:50 Oxygen Delivery Method Room Air Weight: 85.6 kg Body Mass Index (BMI) 29.5 Intake & Output: Intake and Output for Last 24 Hours 02/23/23 02/24/23 02/25/23 23:59 23:59 23:59 Intake Total 1893.4 / 1893.4 Output Total 350 / 350 Balance 1543.4 / 1543.4 Lab / Micro Data 02/25/23 13:40 02/25/23 13:40 Labs: Laboratory Results - last 24 hr 02/25/23 07:05: WBC 10.3, RBC 4.02 L, Hgb 13.6, Hct 38.0, MCV 94.5, MCH 33.8 H, MCHC 35.8, RDW Std Deviation 47.0 H, RDW Coeff of Evens 13.5, Plt Count 273, MPV 11.8, Immature Gran % (Auto) 0.400, Neut % (Auto) 45.9 L, Lymph % (Auto) 34.3, [place] % (Auto) 7.4, Eos % (Auto) 10.9 H, Baso % (Auto) 1.1 H, Absolute Neuts (auto) 4.7, Absolute Lymphs (auto) 3.53, Nucleated RBC % 0, PT 13.5, INR 1.0, APTT 32.3, Sodium 140, Potassium 3.8, Chloride 107, Carbon Dioxide 27.0, Anion Gap 6, BUN 13, Creatinine 1.14 H, Estim Creat Clear Calc 69.53, Est GFR (MDRD) Af Amer 71, Est GFR (MDRD) Non-Af 59 L, BUN/Creatinine Ratio 11.4, Glucose 97, Calcium 9.3, Blood Type Cancelled, Antibody Screen Cancelled 02/25/23 07:27: Blood Type Cancelled, Antibody Screen Cancelled, Crossmatch See Detail 02/25/23 13:40: WBC 14.2 H, RBC 2.77 L, Hgb 9.4 L, Hct 26.9 L, MCV 97.1, MCH 33.9 H, MCHC 34.9, RDW Std Deviation 49.2 H, RDW Coeff of Evens 13.8, Plt Count 313, MPV 12.0, PT 15.9 H, INR 1.3, APTT 28.3, Fibrinogen 175 L, Sodium 143, Potassium 4.4, Chloride 116 H, Carbon Dioxide 24.0, Anion Gap 3 L, BUN 10, Cre atinine 1.05 H, Estim Creat Clear Calc 75.49, Est GFR (MDRD) Af Amer 79, Est GFR (MDRD) Non-Af 65, BUN/Creatinine Ratio 9.5 L, Glucose 123 H, Calcium 7.3 L, Blood Type O POSITIVE, Antibody Screen NEGATIVE, Crossmatch See Detail 02/25/23 13:40: Crossmatch See Detail 02/25/23 14:20: WBC Cancelled, Corrected WBC Cancelled, RBC Cancelled, Hgb Cancelled, Hct Cancelled, MCV Cancelled, MCH Cancelled, MCHC Cancelled, RDW Std Deviation Cancelled, RDW Coeff of Evens Cancelled, Plt Count Cancelled, MPV Cancelled, Immature Gran % (Auto) Cancelled, Neut % (Auto) Cancelled, Lymph % ( Auto) Cancelled, [place] % (Auto) Cancelled, Eos % (Auto) Cancelled, Baso % (Auto) Cancelled, Absolute Neuts (auto) Cancelled, Absolute Lymphs (auto) Cancelled, Total Counted Cancelled, Neutrophils % (Manual) Cancelled, Band Neutrophils % Cancelled, Lymphocytes % (Manual) Cancelled, Monocytes % (Manual) Cancelled, Eosinophils % (Manual) Cancelled, Basophils % (Manual) Cancelled, Metamyelocytes % Cancelled, Myelocytes % Cancelled, Promyelocytes % Cancelled, Blast Cells % Cancelled, Plasma Cell % (Manual) Cancelled, Other Cells % Cancelled, Nucleated RBC % Cancelled, Nucleated RBCs/100 WBC Cancelled, Differential Comment Cancelled, Diff Path Review Cancelled, Hypersegmented Neuts Cancelled, Atypical Lymphocytes Cancelled, Reactive Lymphocytes Cancelled, Smudge Cells Cancelled, Toxic Granulation Cancelled, Toxic Vacuolation Cancelled, Dohle Bodies Cancelled, Scotty Rods Cancelled, Platelet Estimate Cancelled, Plt Morphology Comment Cancelled, RBC Morphology Cancelled 02/25/23 14:20: RBC Morphology Cancelled, Polychromasia Cancelled, Hypochromasia Cancelled, Poikilocytosis Cancelled, Basophilic Stippling Cancelled, Anisocytosis Cancelled, Microcytosis Cancelled, Macrocytosis Cancelled, Spherocytes Cancelled, Sickle Cells Cancelled, Target Cells Cancelled, Tear Drop Cells Cancelled, Ovalocytes Cancelled, Stomatocytes Cancelled, [place] Bodies Cancelled, [place] Cells Cancelled, Bite Cells Cancelled, Crenated Cell Cancelled, Acanthocytes (Spur) Cancelled, Rouleaux Cancelled, Schistocytes Cancelled 02/25/23 16:17: PT 16.8 H, INR 1.4, APTT 24.5, Fibrinogen 81 L* Radiography Diagnostic Testing: Radiology Impression Transvaginal US 02/25/23 07:16 IMPRESSION: Heterogeneous endometrium with cystic regions and prominent vascularity suggesting retained products of conception. Electronically Signed: Arthur Sullivan MD at 10:08 EDT , Physical Exam Narrative General: Alert, oriented, appears upset HEENT: Atraumatic, normocephalic Eyes: Anicteric, normal conjunctiva, extraocular movements grossly intact, appears to have some slight puffiness around eyes Neck: Supple Respiratory: Clear to auscultation bilaterally, normal respiratory effort Cardiovascular: Regular rate and rhythm GI: Soft, nontender, nondistended Extremities: No edema Musculoskeletal: Moving all extremities Neuro: No overt focal neurological deficits Skin: No rashes appreciated Psych: Appears anxious Assessment & Plan Assessment/Plan (1) hemorrhage: (2) Hypothyroid: (3) Retained products of conception: PLAN: Plan #Acute blood loss anemia secondary to hemorrhage with concern for acute DIC -Patient status post D&C and balloon placement with improving bleeding, patient already received methergine and tranexamic acid as well -Patient with significant bleeding and hemoglobin dropped from 13-9 and 1 unit packed red blood cells ordered as this is anticipated to follow further, CBC to be trended -Additionally patient had dropping fibrinogen and increased PT, agree with 1 unit FFP ordered and labs to continue to be monitored -Platelets had to drop but repeat CBC pending, will add D-dimer to next labs and will also add liver panel -Patient with another unit of blood on hold, continue to give crystalloid, continue to monitor urine output #Hypothyroidism -Continue Synthroid #DVT ppx: SCDs Valentine Urbina MD Time spent in the patient's overall evaluation,decision-making process, review of diagnostic data, adjustment of management, discussion with other providers, nursing nursing and ancillary staff involved in patient's care documentation, 45 minutes Charges/Coding Visit Charges Inpatient E&M: 14305 Subs Hosp L2
--- NOTE | 2023-02-25 18:57 | NURSING ---
pt assessed upon arrival to unit. per Dr. Tellez, bolus in FFP and run RBC over 2 hours. Ok to run both blood products at the same time. RN to get CBC and coags 30 minutes after completion of RBC. If hemoglobin is less than 7, to infuse second unit of PRBC.
--- NOTE | 2023-02-25 20:00 | NURSING ---
Rn up to check on pt and assess tamponade balloon. Bleeding is WNL and balloon intact. pad under pt with scant bleeding. Rn also assisted pt to pump with her own pump and went over pumping/cleaning with her and spouse. RN also discussed POC regarding feeding baby throughout the night.
[2023-02-25 21:26] LABS: Hematocrit 26.5 % (37-47); Hemoglobin 8.7 g/dL (12.0-15.0); Mean Corp Hgb Conc 32.8 g/dL (32-36); Mean Corpuscular Hgb 32.2 pg (27.0-32.0); Mean Corpuscular Volume 98.1 fL (81-99); Platelet Count 202 K/mm3 (150-450); RBC Distribution Width SD 50.2 fl (35.1-43.9); White Blood Count 15.9 K/mm3 (4.4-11.0)
[2023-02-25] MEDS: Lactated Ringers 1,000 ML 150 ML IV (22:04)
[2023-02-26] VITALS (15 sets, daily range): BP systolic 88–106; BP diastolic 42–70; PULSE 58–95; RESP 12–18; TEMP 36.3–36.9; O2SAT 93–100; BMI 30.4
--- NOTE | 2023-02-26 00:10 | NURSING ---
RN up to assess pt's bleeding and tamponade balloon. Bleeding minimal, pad with scant blood on it. RN assisted pt to pump. Dr. Tellez in to see pt.
--- NOTE | 2023-02-26 00:28 | PCM.PN.BLA ---
Progress Note patient seen- repeat labs being drawn now. pain controlled, no CP SOB N V. bleeding minimal- 25 cc in bakri balloon catheter. good urine output and milk output. lower bp but heart rate stable in the 80s. scds on. await repeat labs. will remove bakri balloon in am.
[2023-02-26] MEDS: Cefazolin 2 GM in 0.9% Normal Saline (100mL Bag) 100 ML IV ×3 (00:38→12:08)
[2023-02-26 00:51] LABS: Absolute Lymphocyte Count 2.31 X10^3/uL (0.83-4.51); Basophil# 0.04 X10^3/uL; Basophil% 0.3 % (0-1); Eosinophil# 0.03 X10^3/uL; Eosinophils% 0.2 % (0-5); Hematocrit 24.6 % (37-47); Hemoglobin 8.4 g/dL (12.0-15.0); Lymphocyte # 2.31 X10^3/ul (0.83-4.51); Lymphocyte % 18.8 % (19-41); Mean Corp Hgb Conc 34.1 g/dL (32-36); Mean Corpuscular Hgb 32.6 pg (27.0-32.0); Mean Corpuscular Volume 95.3 fL (81-99); Mean Platelet Vol. 11.8 fl (6.2-12.0); Monocyte# 0.89 X10^3/uL; Monocyte% 7.2 % (0-10); NRBC Flagged by Analyzer 0 % (0-5); Neutrophil # 8.98 X10^3/uL (2.7-7.7); Neutrophil % 72.9 % (47-70); Platelet Count 182 K/mm3 (150-450); RBC Distribution Width CV 13.8 % (11.6-14.6); RBC Distribution Width SD 47.8 fl (35.1-43.9); Red Blood Count 2.58 M/mm3 (4.2-5.4); White Blood Count 12.3 K/mm3 (4.4-11.0)
[2023-02-26 01:03] LABS: International Normalized Ratio 1.2; Prothrombin Time (Protime)PT. 15.5 SECONDS (11.7-14.9)
[2023-02-26 01:04] LABS: Fibrinogen 201 mg/dl (203-444)
[2023-02-26 01:06] LABS: AST(SGOT) 13 U/L (15-37); Alanine Aminotransfer ALT/SGPT 19 U/L (13-56); Albumin, Serum 2.8 g/dL (3.2-5.0); Alkaline Phosphatase 80 U/L (45-117); Bilirubin, Direct 0.13 mg/dL (0.00-0.30); Globulin 2.2 g/dL (2.2-4.2)
[2023-02-26 01:13] LABS: D-Dimer Quantitative (DVT/PE) 0.82 FEU/ug/m (0.27-0.49)
[2023-02-26] MEDS: 0.9% Saline Lock 10 ML Syringe IV ×3 (01:58→17:16)
--- NOTE | 2023-02-26 04:15 | NURSING ---
Rn up to see pt. Tamponade balloon with minimal drainage and pad under pt with scant discharge. RN up to assist pt to pump. Pt voiced desire to try and nurse at next feeding around 0630 depending on ICU's POC for the morning.
[2023-02-26] MEDS: Lactated Ringers 1,000 ML 150 ML IV ×2 (04:45→10:36)
[2023-02-26] MEDS: Acetaminophen 500 MG Tablet 1000 MG PO (05:57)
[2023-02-26 06:14] LABS: Absolute Lymphocyte Count 2.23 X10^3/uL (0.83-4.51); Absolute Neutrophil Count 6.1 X10^3/uL (2.0-7.7); Basophil# 0.04 X10^3/uL; Basophil% 0.4 % (0-1); Eosinophil# 0.18 X10^3/uL; Eosinophils% 1.9 % (0-5); Hematocrit 23.2 % (37-47); Hemoglobin 7.8 g/dL (12.0-15.0); Lymphocyte # 2.23 X10^3/ul (0.83-4.51); Lymphocyte % 23.6 % (19-41); Mean Corp Hgb Conc 33.6 g/dL (32-36); Mean Corpuscular Volume 95.1 fL (81-99); Monocyte# 0.84 X10^3/uL; Monocyte% 8.9 % (0-10); NRBC Flagged by Analyzer 0 % (0-5); Neutrophil % 64.7 % (47-70); Platelet Count 165 K/mm3 (150-450); RBC Distribution Width CV 14.2 % (11.6-14.6); RBC Distribution Width SD 48.8 fl (35.1-43.9); Red Blood Count 2.44 M/mm3 (4.2-5.4); White Blood Count 9.4 K/mm3 (4.4-11.0)
[2023-02-26 06:39] LABS: International Normalized Ratio 1.2; Prothrombin Time (Protime)PT. 15.2 SECONDS (11.7-14.9)
[2023-02-26 06:40] LABS: Fibrinogen 201 mg/dl (203-444)
[2023-02-26 07:10] LABS: AST(SGOT) 12 U/L (15-37); Alanine Aminotransfer ALT/SGPT 16 U/L (13-56); Albumin, Serum 2.5 g/dL (3.2-5.0); Alkaline Phosphatase 77 U/L (45-117); Anion Gap 3 (5-15); BUN 8 mg/dL (7-18); BUN/Creat Ratio 8.3 RATIO (10-20); Bilirubin, Direct 0.15 mg/dL (0.00-0.30); Calcium,Total 7.8 mg/dL (8.5-10.1); Chloride 112 mmol/L (98-107); Creatinine, Serum 0.96 mg/dL (0.55-1.02); EST Glomerular Filtration Rate 72 mL/min (>60); Est Glom Filt Rate - Afr Amer 87 mL/min (>60); Estimated Creatinine Clearance 82.57 ml/min; Globulin 2.1 g/dL (2.2-4.2); Glucose 97 mg/dL (74-106); Protein, Total 4.6 g/dL (6.4-8.2); Sodium Level 141 mmol/L (136-145)
[2023-02-26] MEDS: Levothyroxine 25 MCG TABLET PO (07:39)
--- NOTE | 2023-02-26 07:45 | PN.OBGYN_ITS ---
Subjective Subjective no CP SOB N V mild ZHANG feels weak no dizziness bleeding minimal Objective Data Objective Data Vital Signs: Vital Signs Temp Pulse Resp BP Pulse Ox O2 Del Method 98 F 79 16 102/67 97 Room Air 02/26/23 05:00 02/26/23 06:00 02/26/23 06:00 02/26/23 06:00 02/26/23 06:00 02/26/23 06:00 Oxygen Delivery Method Room Air Weight: 194 lb 0.108 oz Body Mass Index (BMI) 30.4 Intake & Output: Intake and Output for Last 24 Hours 02/24/23 02/25/23 02/26/23 23:59 23:59 23:59 Intake Total 3843.4 / 3843.4 1110 / 1110 Output Total 975 / 975 890 / 890 Balance 2868.4 / 2868.4 220 / 220 Lab / Micro Data 02/26/23 05:55 02/26/23 05:55 Labs: Laboratory Results - last 24 hr 02/25/23 07:05: PT 13.5, INR 1.0, APTT 32.3 02/25/23 07:27: Blood Type Cancelled, Antibody Screen Cancelled, Crossmatch See Detail 02/25/23 13:40: WBC 14.2 H, RBC 2.77 L, Hgb 9.4 L, Hct 26.9 L, MCV 97.1, MCH 33.9 H, MCHC 34.9, RDW Std Deviation 49.2 H, RDW Coeff of Evens 13.8, Plt Count 313, MPV 12.0, PT 15.9 H, INR 1.3, APTT 28.3, Fibrinogen 175 L, Sodium 143, Potassium 4.4, Chloride 116 H, Carbon Dioxide 24.0, Anion Gap 3 L, BUN 10, Creatinine 1.05 H, Estim Creat Clear Calc 75.49, Est GFR (MDRD) Af Amer 79, Est GFR (MDRD) Non-Af 65, BUN/Creatinine Ratio 9.5 L, Glucose 123 H, Calcium 7.3 L, Blood Type O POSITIVE, Antibody Screen NEGATIVE, Crossmatch See Detail 02/25/23 13:40: Crossmatch See Detail 02/25/23 16:17: PT 16.8 H, INR 1.4, APTT 24.5, Fibrinogen 81 L* 02/25/23 16:20: WBC Cancelled, Corrected WBC Cancelled, RBC Cancelled, Hgb Cancelled, Hct Cancelled, MCV Cancelled, MCH Cancelled, MCHC Cancelled, RDW Std Deviation Cancelled, RDW Coeff of Evens Cancelled, Plt Count Cancelled, MPV Canc elled, Immature Gran % (Auto) Cancelled, Neut % (Auto) Cancelled, Lymph % (Auto) Cancelled, [place] % (Auto) Cancelled, Eos % (Auto) Cancelled, Baso % (Auto) Cancelled, Absolute Neuts (auto) Cancelled, Absolute Lymphs (auto) Cancelled, Total Counted Cancelled, Neutrophils % (Manual) Cancelled, Band Neutrophils % Cancelled, Lymphocytes % (Manual) Cancelled, Monocytes % (Manual) Cancelled, Eosinophils % (Manual) Cancelled, Basophils % (Manual) Cancelled, Metamyelocytes % Cancelled, Myelocytes % Cancelled, Promyelocytes % Cancelled, Blast Cells % Cancelled, Plasma Cell % (Manual) Cancelled, Other Cells % Cancelled, Nucleated RBC % Cancelled, Nucleated RBCs/100 WBC Cancelled, Differential Comment C ancelled, Diff Path Review Cancelled, Hypersegmented Neuts Cancelled, Atypical Lymphocytes Cancelled, Reactive Lymphocytes Cancelled, Smudge Cells Cancelled, Toxic Granulation Cancelled, Toxic Vacuolation Cancelled, Dohle Bodies Cancelled, Scotty Rods Cancelled, Platelet Estimate Cancelled, Plt Morphology Comment Cancelled, RBC Morphology Cancelled 02/25/23 16:20: RBC Morphology Cancelled, Polychromasia Cancelled, Hypochromasia Cancelled, Poikilocytosis Cancelled, Basophilic Stippling Cancelled, Anisocytosis Cancelled, Microcytosis Cancelled, Macrocytosis Cancelled, Sphero cytes Cancelled, Sickle Cells Cancelled, Target Cells Cancelled, Tear Drop Cells Cancelled, Ovalocytes Cancelled, Stomatocytes Cancelled, [place] Bodies Cancelled, [place] Cells Cancelled, Bite Cells Cancelled, Crenated Cell Cancelled, Acanthocytes (Spur) Cancelled, Rouleaux Cancelled, Schistocytes Cancelled 02/25/23 21:00: WBC 15.9 H, RBC 2.70 L, Hgb 8.7 L, Hct 26.5 L, MCV 98.1, MCH 32.2 H, MCHC 32.8 D, RDW Std Deviation 50.2 H, RDW Coeff of Evens 14.0, Plt Count 202, MPV 12.0 02/26/23 00:30: WBC 12.3 H, RBC 2.58 L, Hgb 8.4 L, Hct 24.6 L, MCV 95.3, MCH 32.6 H, MCHC 34.1, RDW Std Deviation 47.8 H, RDW Coeff of Evens 13.8, Plt Count 182, MPV 11.8, Immature Gran % (Auto) 0.600, Neut % (Auto) 72.9 H, Lymph % (Auto) 18.8 L, [place] % (Auto) 7.2, Eos % (Auto) 0.2, Baso % (Auto) 0.3, Absolute Neuts (auto) 9.0 H, Absolute Lymphs (auto) 2.31, Nucleated RBC % 0, PT 15.5 H, INR 1.2, APTT 25.0, Fibrinogen 201 L, D-Dimer Quant (PE/DVT) 0.82 H*, Total Bilirubin 0.40, Direct Bilirubin 0.13, AST 13 L, ALT 19, Alkaline Phosphatase 80, Total Protein 5.0 L, Albumin 2.8 L, Globulin 2.2 02/26/23 05:55: WBC 9.4, RBC 2.44 L, Hgb 7.8 L, Hct 23.2 L, MCV 95.1, MCH 32.0, MCHC 33.6, RDW Std Deviation 48.8 H, RDW Coeff of Evens 14.2, Plt Count 165, MPV 12.0, Immature Gran % (Auto) 0.500, Neut % (Auto) 64.7, Lymph % (Auto) 23.6, [place] % (Auto) 8.9, Eos % (Auto) 1.9, Baso % (Auto) 0.4, Absolute Neuts (auto) 6.1, Absolute Lymphs (auto) 2.23, Nucleated RBC % 0, PT 15.2 H, INR 1.2, APTT 29.0, Fibrinogen 201 L, Sodium 141, Potassium 4.0, Chloride 112 H, Carbon Dioxide 26.0, Anion Gap 3 L, BUN 8, Creatinine 0.96, Estim Creat Clear Calc 82.57, Est GFR (MDRD) Af Amer 87, Est GFR (MDRD) Non-Af 72, BUN/Creatinine Ratio 8.3 L, Glucose 97, Calcium 7.8 L, Total Bilirubin 0.40, Direct Bilirubin 0.15, A ST 12 L, ALT 16, Alkaline Phosphatase 77, Total Protein 4.6 L, Albumin 2.5 L, Globulin 2.1 L Radiography Diagnostic Testing: Radiology Impression Transvaginal US 02/25/23 07:16 IMPRESSION: Heterogeneous endometrium with cystic regions and prominent vascularity suggesting retained products of conception. Electronically Signed: Arthur Sullivan MD at 10:08 EDT , ROS Constitutional Constitutional: Reports systems reviewed and no addt'l complaints, except as documented Cardiovascular Cardiovascular: Reports systems reviewed and no addt'l complaints, except as documented Respiratory/Chest Respiratory/Chest: Reports systems reviewed and no addt'l complaints, except as documented Gastrointestinal Gastrointestinal: Reports systems reviewed and no addt'l complaints, except as documented Physical Exam Const alert, oriented x3 and no apparent distress HEENT Head and Scalp: atraumatic Resp normal respiratory effort Cardio regular rhythm GI soft to palpation and non-tender Inspection: Negative for abdominal distention Extremity normal to inspection Skin no rashes or lesions noted Assessment & Plan (1) Hypothyroid: COMMENT: continue synthroid (2) Retained products of conception: COMMENT: 3 weeks PP, s/p suction d and c (3) hemorrhage: COMMENT: 3 weeks , given methergine hemabate, TXA, pitocin, cytotec, bakri balloon. ancef given while bakri balloon in. (4) DIC (disseminated intravascular coagulation): COMMENT: clinical bleeding stable, given 1 unit PRBC and 1 unit FFP, repeat coags stable and improving, will give second unit PRBCs (5) Acute postoperative anemia due to greater than expected blood loss: COMMENT: transfused 1 unit PRBCs and 1 unit FFP, will give 2nd unti PRBC PLAN: Plan see a/p comments for plan details scds on appreciate ICU level care- will transfuse additional unit now and repeat labs 4 hours post transfusion, if stays clinically stable anticipate transfer to floor this afternoon. bakri balloon removed this morning, monitoring vaginal bleeding. methering x 24 hours given. continue ancef unti ltransfer to floor. resolution of abnormal coag panel, additional until of prbcs given due to Hg below 8, symptomatic with borderline low bps and patient clinical scenario.
--- NOTE | 2023-02-26 10:20 | PCM.PROGNOTE ---
Subjective Subjective Patient seen and examined. She had no complaints and had an uneventful night. She is still having some bleeding. BP has improved. She was transferred to ICU due to concerns about DIC. Hypotension has now resolved. She is being transfused with one unit of PRBC. Bakri balloon was removed by germination testing manager. Objective Data Objective Data Vital Signs: Vital Signs Temp Pulse Resp BP Pulse Ox O2 Del Method 97.9 F 75 12 99/70 100 Room Air 02/26/23 09:22 02/26/23 09:22 02/26/23 09:22 02/26/23 09:22 02/26/23 09:22 02/26/23 09:22 Oxygen Delivery Method Room Air Weight: 194 lb 0.108 oz Body Mass Index (BMI) 30.4 Intake & Output: Intake and Output for Last 24 Hours 02/24/23 02/25/23 02/26/23 23:59 23:59 23:59 Intake Total 3843.4 / 3843.4 1220 / 1220 Output Total 975 / 975 890 / 890 Balance 2868.4 / 2868.4 330 / 330 Lab / Micro Data 02/26/23 05:55 02/26/23 05:55 Labs: Laboratory Results - last 24 hr 02/25/23 07:27: Blood Type Cancelled, Antibody Screen Cancelled, Crossmatch See Detail 02/25/23 13:40: WBC 14.2 H, RBC 2.77 L, Hgb 9.4 L, Hct 26.9 L, MCV 97.1, MCH 33.9 H, MCHC 34.9, RDW Std Deviation 49.2 H, RDW Coeff of Evens 13.8, Plt Count 313, MPV 12.0, PT 15.9 H, INR 1.3, APTT 28.3, Fibrinogen 175 L, Sodium 143, Potassium 4.4, Chloride 116 H, Carbon Dioxide 24.0, Anion Gap 3 L, BUN 10, Creatinine 1.05 H, Estim Creat Clear Calc 75.49, Est GFR (MDRD) Af Amer 79, Est GFR (MDRD) Non-Af 65, BUN/Creatinine Ratio 9.5 L, Glucose 123 H, Calcium 7.3 L, Blood Type O POSITIVE, Antibody Screen NEGATIVE, Crossmatch See Detail 02/25/23 13:40: Crossmatch See Detail 02/25/23 16:17: PT 16.8 H, INR 1.4, APTT 24.5, Fibrinogen 81 L* 02/25/23 16:20: WBC Cancelled, Corrected WBC Cancelled, RBC Cancelled, Hgb Cancelled, Hct Cancelled, MCV Cancelled, MCH Cancelled, MCHC Cancelled, RDW Std Deviation Cancelled, RDW Coeff of Evens Cancelled, Plt Count Cancelled, MPV Cancelled, Immature Gran % (Auto) Cancelled, Neut % (Auto) Cancelled, Lymph % (Auto) Cancelled, [place] % (Auto) Cancelled, Eos % (Auto) Cancelled, Baso % (Auto) Cancelled, Absolute Neuts (auto) Cancelled, Absolute Lymphs (auto) Cancelled, Total Counted Cancelled, Neutrophils % (Manual) Cancelled, Band Neutrophils % Cancelled, Lymphocytes % (Manual) Cancelled, Monocytes % (Manual) Cancelled, Eosinophils % (Manual) Cancelled, Basophils % (Manual) Cancelled, Metamyelocytes % Cancelled, Myelocytes % Cancelled, Promyelocytes % Cancelled, Blast Cells % Cancelled, Plasma Cell % (Manual) Cancelled, Other Cells % Cancelled, Nucleated RBC % Cancelled, Nucleated RBCs/100 WBC Cancelled, Differential Comment Cancelled, Diff Path Review Cancelled, Hypersegmented Neuts Cancelled, Atypical Lymphocytes Cancelled, Reactive Lymphocytes Cancelled, Smudge Cells Cancelled, Toxic Granulation Cancelled, Toxic Vacuolation Cancelled, Dohle Bodies Cancelled, Scotty Rods Cancelled, Platelet Estimate Cancelled, Plt Morphology Comment Cancelled, RBC Morphology Cancelled 02/25/23 16:20: RBC Morphology Cancelled, Polychromasia Cancelled, Hypochromasia Cancelled, Poikilocytosis Cancelled, Basophilic Stippling Cancelled, Anisocytosis Cancelled, Microcytosis Cancelled, Macrocytosis Cancelled, Spherocytes Cancelled, Sickle Cells Cancelled, Target Cells Cancelled, Tear Drop Cells Cancelled, Ovalocytes Cancelled, Stomatocytes Cancelled, [place] Bodies Cancelled, [place] Cells Cancelled, Bite Cells Cancelled, Crenated Cell Cancelled, Acanthocytes (Spur) Cancelled, Rouleaux Cancelled, Schistocytes Cancelled 02/25/23 21:00: WBC 15.9 H, RBC 2.70 L, Hgb 8.7 L, Hct 26.5 L, MCV 98.1, MCH 32.2 H, MCHC 32.8 D, RDW Std Deviation 50.2 H, RDW Coeff of Evens 14.0, Plt Count 202, MPV 12.0 02/26/23 00:30: WBC 12.3 H, RBC 2.58 L, Hgb 8.4 L, Hct 24.6 L, MCV 95.3, MCH 32.6 H, MCHC 34.1, RDW Std Deviation 47.8 H, RDW Coeff of Evens 13.8, Plt Count 182, MPV 11.8, Immature Gran % (Auto) 0.600, Neut % (Auto) 72.9 H, Lymph % (Auto) 18.8 L, [place] % (Auto) 7.2, Eos % (Auto) 0.2, Baso % (Auto) 0.3, Absolute Neuts (auto) 9.0 H, Absolute Lymphs (auto) 2.31, Nucleated RBC % 0, PT 15.5 H, INR 1.2, APTT 25.0, Fibrinogen 201 L, D-Dimer Quant (PE/DVT) 0.82 H*, Total Bilirubin 0.40, Direct Bilirubin 0.13, AST 13 L, ALT 19, Alkaline Phosphatase 80, Total Protein 5.0 L, Albumin 2.8 L, Globulin 2.2 02/26/23 05:55: WBC 9.4, RBC 2.44 L, Hgb 7.8 L, Hct 23.2 L, MCV 95.1, MCH 32.0, MCHC 33.6, RDW Std Deviation 48.8 H, RDW Coeff of Evens 14.2, Plt Count 165, MPV 12.0, Immature Gran % (Auto) 0.500, Neut % (Auto) 64.7, Lymph % (Auto) 23.6, [place] % (Auto) 8.9, Eos % (Auto) 1.9, Baso % (Auto) 0.4, Absolute Neuts (auto) 6.1, Absolute Lymphs (auto) 2.23, Nucleated RBC % 0, PT 15.2 H, INR 1.2, APTT 29.0, Fibrinogen 201 L, Sodium 141, Potassium 4.0, Chloride 112 H, Carbon Dioxide 26.0, Anion Gap 3 L, BUN 8, Creatinine 0.96, Estim Creat Clear Calc 82.57, Est GFR (MDRD) Af Amer 87, Est GFR (MDRD) Non-Af 72, BUN/Creatinine Ratio 8.3 L, Glucose 97, Calcium 7.8 L, Total Bilirubin 0.40, Direct Bilirubin 0.15, AST 12 L, ALT 16, Alkaline Phosphatase 77, Total Protein 4.6 L, Albumin 2.5 L, Globulin 2.1 L Physical Exam Const alert, oriented x3 and no apparent distress General Appearance: cooperative and well developed HEENT normocephalic, head/scalp atraumatic, moist oral mucous membranes and oropharynx normal Eyes PERRL and EOMs intact bilaterally Neck no lymphadenopathy, supple and no JVD Lymph Lymphatic: no lymphadenopathy noted and no lymphedema noted Resp normal respiratory effort, normal air movement and clear to auscultation bilaterally Cardio regular rate, regular rhythm, S1 normal heart sound, S2 normal heart sound and no murmurs GI normal to inspection, nondistended, normoactive bowel sounds, soft to palpation, non-tender and non-distended Extremity normal capillary refill, no clubbing, cyanosis or edema and no calf tenderness Skin General Skin Exam: no breakdown and turgor normal Neuro CN's II-XII intact bilaterally, no focal motor deficits and no sensory deficits noted Motor Exam: strength 5/5 throughout Psych thought process normal, cooperative and affect normal Appearance: appropriate Assessment & Plan Assessment/Plan (1) Acute postoperative anemia due to greater than expected blood loss: (2) DIC (disseminated intravascular coagulation): PLAN: Plan #Acute blood loss anemia due to post hemorrhage and probable DIC Had retained products of conception after delivery. She is status post D&C and balloon placement. She was also given Methergine and tranexamic acid. There is concern for DIC due to decreased fibrinogen and increased PT. She has been given a unit of FFP's and given a units of packed red blood cells today as well as hemoglobin of 7.8. Obstetrics on board. Being transfused with 4 units of blood red blood cells today. Bakri balloon removed. For likely transfer out of unit today she remained stable. #Hypotension BP remains down in the 90s systolic. continue hydration with iVF Ringer's lactate at 150cc/hr being transfused with a unit of PRBCs also. #Hypothyroidism: on synthroid DVT prophylaxis: SCDs Charges/Coding Visit Charges Inpatient E&M: 22532 Subs Hosp L2
[2023-02-26] MEDS: Prenatal Vits Tablet 1 TABLET PO (13:09)
[2023-02-26] MEDS: Senna/Docusate Sodium 1 Tablet PO (14:45)
[2023-02-26 15:05] LABS: Absolute Lymphocyte Count 2.09 X10^3/uL (0.83-4.51); Absolute Neutrophil Count 4.5 X10^3/uL (2.0-7.7); Basophil# 0.04 X10^3/uL; Basophil% 0.5 % (0-1); Eosinophil# 0.28 X10^3/uL; Eosinophils% 3.6 % (0-5); Hematocrit 26.2 % (37-47); Hemoglobin 9.1 g/dL (12.0-15.0); Lymphocyte # 2.09 X10^3/ul (0.83-4.51); Mean Corp Hgb Conc 34.7 g/dL (32-36); Mean Corpuscular Hgb 32.5 pg (27.0-32.0); Mean Corpuscular Volume 93.6 fL (81-99); Mean Platelet Vol. 12.2 fl (6.2-12.0); Monocyte# 0.81 X10^3/uL; Monocyte% 10.5 % (0-10); NRBC Flagged by Analyzer 0 % (0-5); Neutrophil % 58.1 % (47-70); Platelet Count 163 K/mm3 (150-450); RBC Distribution Width CV 14.2 % (11.6-14.6); RBC Distribution Width SD 48.2 fl (35.1-43.9); White Blood Count 7.7 K/mm3 (4.4-11.0)
--- NOTE | 2023-02-26 15:13 | PCM.PN.BLA ---
Progress Note patient seen over lunch hour- bleeding minimal, sitting up in chair vitals stable no dizziness, reviewed labs post transfusion stable for transfer to floor.
[2023-02-27 01:20] VITALS: BP 97/57; PULSE 75; RESP 18; TEMP 36.6
[2023-02-27 04:57] VITALS: BP 106/60; PULSE 76; RESP 18; TEMP 36.3
[2023-02-27 06:00] LABS: Absolute Lymphocyte Count 2.58 X10^3/uL (0.83-4.51); Absolute Neutrophil Count 3.6 X10^3/uL (2.0-7.7); Basophil# 0.05 X10^3/uL; Basophil% 0.7 % (0-1); Eosinophil# 0.68 X10^3/uL; Eosinophils% 9.2 % (0-5); Hematocrit 27.9 % (37-47); Hemoglobin 9.5 g/dL (12.0-15.0); Lymphocyte # 2.58 X10^3/ul (0.83-4.51); Lymphocyte % 34.9 % (19-41); Mean Corp Hgb Conc 34.1 g/dL (32-36); Mean Corpuscular Volume 93.9 fL (81-99); Mean Platelet Vol. 11.8 fl (6.2-12.0); Monocyte# 0.48 X10^3/uL; Monocyte% 6.5 % (0-10); NRBC Flagged by Analyzer 0 % (0-5); Neutrophil # 3.58 X10^3/uL (2.7-7.7); Neutrophil % 48.3 % (47-70); Platelet Count 174 K/mm3 (150-450); RBC Distribution Width CV 13.9 % (11.6-14.6); Red Blood Count 2.97 M/mm3 (4.2-5.4); White Blood Count 7.4 K/mm3 (4.4-11.0)
[2023-02-27] MEDS: Levothyroxine 25 MCG TABLET PO (07:27)
--- NOTE | 2023-02-27 08:11 | PCM.PN.OB ---
Subjective Subjective patient is laying in bed comfortably. She has no complaints other than some minor dizziness when bending over to pick something up. She is requesting to go home today. Labs were reviewed and are stable Objective Data Objective Data Vital Signs: Vital Signs Temp Pulse Resp BP Pulse Ox O2 Del Method 97.4 F L 76 18 106/60 98 Room Air 02/27/23 04:57 02/27/23 04:57 02/27/23 04:57 02/27/23 04:57 02/26/23 16:45 02/27/23 04:57 Oxygen Delivery Method Room Air Weight: 194 lb 0.108 oz Body Mass Index (BMI) 30.4 Intake & Output: Intake and Output for Last 24 Hours 02/25/23 02/26/23 02/27/23 23:59 23:59 23:59 Intake Total 3843.4 / 3843.4 3817.5 / 3817.5 Output Total 975 / 975 2240 / 2240 Balance 2868.4 / 2868.4 1577.5 / 1577.5 Lab / Micro Data 02/27/23 05:45 02/26/23 05:55 Labs: Laboratory Results - last 24 hr 02/25/23 13:40: Crossmatch See Detail 02/26/23 14:44: WBC 7.7, RBC 2.80 L, Hgb 9.1 L, Hct 26.2 L, MCV 93.6, MCH 32.5 H, MCHC 34.7, RDW Std Deviation 48.2 H, RDW Coeff of Evens 14.2, Plt Count 163, MPV 12.2 H, Immature Gran % (Auto) 0.300, Neut % (Auto) 58.1, Lymph % (Auto) 27.0, [place] % (Auto) 10.5 H, Eos % (Auto) 3.6, Baso % (Auto) 0.5, Absolute Neuts (auto) 4.5, Absolute Lymphs (auto) 2.09, Nucleated RBC % 0 02/27/23 05:45: WBC 7.4, RBC 2.97 L, Hgb 9.5 L, Hct 27.9 L, MCV 93.9, MCH 32.0, MCHC 34.1, RDW Std Deviation 47.0 H, RDW Coeff of Evens 13.9, Plt Count 174, MPV 11.8, Immature Gran % (Auto) 0.400, Neut % (Auto) 48.3, Lymph % (Auto) 34.9, [place] % (Auto) 6.5, Eos % (Auto) 9.2 H, Baso % (Auto) 0.7, Absolute Neuts (auto) 3.6, Absolute Lymphs (auto) 2.58, Nucleated RBC % 0 ROS Constitutional Constitutional: Denies chills, fatigue, fever(s), poor appetite or weakness Eyes Eyes: Denies blurry vision, change in vision, seeing flashes or spots in vision ENT HEENT: Denies dizziness, headache(s), loss taste/smell or sore throat Cardiovascular Cardiovascular: Denies chest pain, dizziness, dyspnea, irregular heart rhythm, palpitations or rapid heart rate Respiratory/Chest Respiratory/Chest: Denies chest tightness, cough, dyspnea or breast pain Gastrointestinal Gastrointestinal: Denies abdominal pain, constipation or vomiting Genitourinary Genitourinary: Denies dysuria or flank pain Musculoskeletal Musculoskeletal: Denies difficulty walking, joint pain, limited range of motion or numbness Neurologic Neurologic: Denies abnormal movements, abnormal speech, dizziness, numbness, seizure-like activity or syncope Psychiatric Psychiatric: Denies anxiety, behavioral changes, change in appetite, confusion, depression or suicidal thoughts Physical Exam Const alert, oriented x3 and no apparent distress General Appearance: cooperative and comfortable Resp normal respiratory effort Cardio regular rate GI normal to inspection, nondistended, normoactive bowel sounds GI Narrative: uterus is firm below umbilicus Palpation: soft Back/Spine no CVA tenderness and thoraco-lumbar ROM normal Extremity normal to inspection, no clubbing, cyanosis or edema, no calf tenderness and no pedal edema Psych mental status grossly normal, thought process normal, cooperative, affect normal, speech normal, activity/motor behavior normal, denies homicidal ideation and denies suicidal ideation Assessment & Plan (1) Acute postoperative anemia due to greater than expected blood loss: COMMENT: transfused 1 unit PRBCs and 1 unit FFP, will give 2nd unti PRBC (2) DIC (disseminated intravascular coagulation): COMMENT: clinical bleeding stable, given 1 unit PRBC and 1 unit FFP, repeat coags stable and improving, will give second unit PRBCs (3) Retained products of conception: COMMENT: 3 weeks PP, s/p suction d and c (4) hemorrhage: COMMENT: 3 weeks , given methergine hemabate, TXA, pitocin, cytotec, bakri balloon. ancef given while bakri balloon in. (5) Hypothyroid: COMMENT: continue synthroid PLAN: Plan Labs are stable today and bp is improved. patient would like to go home if possible. -plan to observe for a few more hours after breakfast to determine baseline bp. -start iron therapy at home -close follow up in one week. -strict restrictions at home discussed.
[2023-02-27 08:57] VITALS: BP 113/71; PULSE 74; RESP 15; TEMP 37.2; O2SAT 99
--- NOTE | 2023-02-27 10:19 | PN_ITS ---
Subjective Subjective Patient seen and examined. She felt well and had no complaints. She only had mild bleeding. She still feels a bit dizzy if she gets up rapidly. REview of systems is otherwise negative. Objective Data Objective Data Vital Signs: Vital Signs Temp Pulse Resp BP Pulse Ox O2 Del Method 99.0 F 74 15 113/71 99 Room Air 02/27/23 08:57 02/27/23 08:57 02/27/23 08:57 02/27/23 08:57 02/27/23 08:57 02/27/23 08:57 Oxygen Delivery Method Room Air Weight: 194 lb 0.108 oz Body Mass Index (BMI) 30.4 Intake & Output: Intake and Output for Last 24 Hours 02/25/23 02/26/23 02/27/23 23:59 23:59 23:59 Intake Total 3843.4 / 3843.4 3817.5 / 3817.5 Output Total 975 / 975 2240 / 2240 Balance 2868.4 / 2868.4 1577.5 / 1577.5 Lab / Micro Data 02/27/23 05:45 02/26/23 05:55 Labs: Laboratory Results - last 24 hr 02/25/23 13:40: Crossmatch See Detail 02/26/23 14:44: WBC 7.7, RBC 2.80 L, Hgb 9.1 L, Hct 26.2 L, MCV 93.6, MCH 32.5 H , MCHC 34.7, RDW Std Deviation 48.2 H, RDW Coeff of Evens 14.2, Plt Count 163, MPV 12.2 H, Immature Gran % (Auto) 0.300, Neut % (Auto) 58.1, Lymph % (Auto) 27.0, [place] % (Auto) 10.5 H, Eos % (Auto) 3.6, Baso % (Auto) 0.5, Absolute Neuts (auto) 4.5, Absolute Lymphs (auto) 2.09, Nucleated RBC % 0 02/27/23 05:45: WBC 7.4, RBC 2.97 L, Hgb 9.5 L, Hct 27.9 L, MCV 93.9, MCH 32.0, MCHC 34.1, RDW Std Deviation 47.0 H, RDW Coeff of Evens 13.9, Plt Count 174, MPV 11.8, Immature Gran % (Auto) 0.400, Neut % (Auto) 48.3, Lymph % (Auto) 34.9, [place] % (Auto) 6.5, Eos % (Auto) 9.2 H, Baso % (Auto) 0.7, Absolute Neuts (auto) 3.6, Absolute Lymphs (auto) 2.58, Nucleated RBC % 0 Physical Exam Const alert, oriented x3 and no apparent distress General Appearance: cooperative and well developed HEENT normocephalic, head/scalp atraumatic, moist oral mucous membranes and oropharynx normal Eyes PERRL and EOMs intact bilaterally Neck no lymphadenopathy, supple and no JVD Lymph Lymphatic: no lymphadenopathy noted and no lymphedema noted Resp normal respiratory effort, normal air movement and clear to auscultation bilaterally Cardio regular rate, regular rhythm, S1 normal heart sound, S2 normal heart sound and no murmurs GI normal to inspection, nondistended, normoactive bowel sounds, soft to palpation, non-tender and non-distended Extremity normal capillary refill, no clubbing, cyanosis or edema and no calf tenderness Skin General Skin Exam: no breakdown and turgor normal Neuro CN's II-XII intact bilaterally, no focal motor deficits and no sensory deficits noted Motor Exam: strength 5/5 throughout Psych thought process normal, cooperative and affect normal Appearance: appropriate Assessment & Plan Assessment/Plan (1) Acute postoperative anemia due to greater than expected blood loss: (2) DIC (disseminated intravascular coagulation): PLAN: Plan #Acute blood loss anemia due to post hemorrhage and probable DIC * Had retained products of conception after delivery. She is status post D&C and balloon placement. She was also given Methergine and tranexamic acid. * There is concern for DIC due to decreased fibrinogen and increased PT. She has been given a unit of FFP's and given a units of packed red blood cells today as well as hemoglobin of 7.8. * Obstetrics on board. * hb today is 9.5. Received PRBCs during this admission. * Bakri balloon removed. * #Hypotension * BP remains down in the 90s systolic. continue hydration with iVF Ringer's lactate at 150cc/hr * being transfused with 1 unit of PRBCs also. * #Hypothyroidism: on synthroid DVT prophylaxis: SCDs Disposition: patient stable for dc from hospitalist standpoint today Charges/Coding Visit Charges Inpatient E&M: 57272 Subs Hosp L2
== END 2023-02-27 10:10 | disposition home or self-care (01) | DRG 769 ==
LOC: ED 07:23 → SDC 10:34 → AC 10:34 → SDC 14:17 → WP 14:17 → ICU 02-26 03:40 → WP 02-26 16:14
PROVIDERS: Emergency Medicine; Internal Medicine; Admitting Provider Obstetrics & Gynecology; Emergency Provider Emergency Medicine; PCP Family Medicine; Visit Provider Obstetrics & Gynecology
PROC: 10D17ZZ Extraction of Products of Conception, Retained, Via Natural or Artificial Opening (ICD-10-PCS; principal; 2023-02-25 11:00)
DX: O72.2 Delayed and secondary postpartum hemorrhage (principal); D62 Acute posthemorrhagic anemia; O99.43 Diseases of the circulatory system complicating the puerperium; E03.9 Hypothyroidism, unspecified; I95.81 Postprocedural hypotension; O90.81 Anemia of the puerperium; O99.285 Endocrine, nutritional and metabolic diseases complicating the puerperium; O72.3 Postpartum coagulation defects; Z79.899 Other long term (current) drug therapy; Z86.16 Personal history of COVID-19
CPT/HCPCS: 36415; 76830; 80048; 80076; 85025; 85027; 85379; 85384; 85610; 85730; 86850; 86900; 86901; 86920; 86922; 88305; 94640; 99282; J7030; J7120; P9016; A4216; J2405; P9017

== ENCOUNTER → 2023-06-15 | Outpatient (CLI) | payer OTHER, SELFPAY ==
--- NOTE | 2023-06-18 11:09 | PFT ---
INTRODUCTION: The patient is a 33-year-old female who presents for pulmonary function studies secondary to a diagnosis of bronchospasm. Respiratory therapy reported good patient effort. Bronchodilators were used during testing. INTERPRETATION: Forced expiration spirometry demonstrated no evidence of a large airways obstructive ventilatory defect. There was no significant response to aerosolized bronchodilators. Spirograms are of good quality and plateau normally. Body plethysmography was performed and revealed lung volumes to be within normal limits. Diffusing capacity by single breath CO was also within normal limits. IMPRESSION: Grossly normal pulmonary function studies.
== END | disposition home or self-care (01) ==
LOC: PSN 09:32
PROVIDERS: PCP Family Medicine; Referring Provider Physician Assistant; Visit Provider Physician Assistant
DX: J98.01 Acute bronchospasm (principal)
CPT/HCPCS: 94060; 94726; 94729

== ENCOUNTER → 2023-10-05 | Outpatient (CLI) | payer OTHER, SELFPAY ==
[2023-10-05 13:53] LABS: T4 Free Direct 1.05 ng/dL (0.76-1.46); Thyroid Stim Hormone (TSH) 2.02 uIU/mL (0.358-3.74)
[2023-10-05 14:06] LABS: HIV - WCH Non-Reactive (Nonreactive); Hepatitis B Surface Antigen Non-Reactive (Nonreactive); Hepatitis C Antibody Non-Reactive (Nonreactive); Rubella IgG Reactive (Nonreactive); Syphilis Antibodies Non-reactive
== END | disposition home or self-care (01) ==
PROVIDERS: PCP Family Medicine; Referring Provider Obstetrics & Gynecology Reproductive Endocrinology; Visit Provider Obstetrics & Gynecology Reproductive Endocrinology
DX: Z01.83 Encounter for blood typing (principal); Z11.3 Encounter for screening for infections with a predominantly sexual mode of transmission; Z11.4 Encounter for screening for human immunodeficiency virus [HIV]; Z11.59 Encounter for screening for other viral diseases; E03.9 Hypothyroidism, unspecified
CPT/HCPCS: 36415; 84439; 84443; 86703; 86762; 86780; 86803; 86850; 87340; 87491; 87591; 87798

== ENCOUNTER → 2024-03-27 | Outpatient (CLI) | payer OTHER, SELFPAY ==
[2024-04-01 16:10] LABS: HPV APTIMA, High Risk Negative (Negative)
== END | disposition home or self-care (01) ==
LOC: LABSPEC 15:31
PROVIDERS: PCP Family Medicine; Referring Provider Advanced Practice Midwife; Visit Provider Advanced Practice Midwife
DX: Z12.4 Encounter for screening for malignant neoplasm of cervix (principal)
CPT/HCPCS: 87624; 88175; G0145

== ENCOUNTER 2024-10-05 21:55 | Emergency (ER) | payer OTHER, SELFPAY ==
[2024-10-05 21:56] VITALS: BP 110/86; PULSE 85; RESP 16; TEMP 36.1; O2SAT 100; BMI 30.3
--- NOTE | 2024-10-05 22:23 | US_ITS ---
PROCEDURE: TRANSVAGINAL W/PREG US 10/05/2024 REASON FOR EXAM: VAGINAL BLEEDING TECHNIQUE: Transvaginal FINDINGS: Comments: Number of Gestational Sacs: 1 Gestational Sac Shape: Normal Number of Fetuses: 1 Heart Rate: 171 (average) Survey of Visible Anatomic Structures: Grossly unremarkable for gestational age. Nasal Bones: Yolk Sac: Present and unremarkable. Placenta: Presently not well-visualized Amniotic Fluid Volume: Subjectively normal for gestational age. Uterine Abnormalities: Maternal uterus is unremarkable. Ovaries / Adnexa: Both maternal ovaries are visualized and unremarkable. DIMENSIONS: Parameter Measurement / EGA Malcolm Rump Length: 16 mm/7 weeks 6 days Gestational Sac: 18 mm/6 weeks 5 days Yolk Sac: 4 mm/ ESTIMATED GESTATIONAL AGE: By Ultrasound: 7 weeks 2 days By LMP: 8 weeks 4 days ESTIMATED DATE OF DELIVERY: By Ultrasound: 05/22/2025 By LMP: 05/13/2025 US/Transvaginal w/Preg US IMPRESSION: UNREMARKABLE FIRST TRIMESTER ULTRASOUND. Reading Location: [facility]
--- NOTE | 2024-10-05 22:24 | ED.VIS.FEGU ---
HPI HPI - Female History of Present Illness Chief Complaint: Vag Bld, Preg Narrative Narrative: 34-year-old female, G2, P1 at approximately 8-1/2 weeks gestation presents with vaginal bleeding that began at 7 PM, approximately 3-1/2 hours ago. She relates history that after her first , she had hemorrhage. Hence, now she is considered high risk as she also has endometriosis. This is her second in vitro fertilization. She states that she had a 6-week ultrasound which showed she had a subchorionic hematoma. She had light spotting prior to that. However, today she is having pelvic cramping and states that although she has not saturated an entire pad, this would be similar to her previous menses and perhaps a heavy flow day. No lightheadedness, denies other symptoms. She called the nurse practitioner at [facility] who told her to come to the emergency department for evaluation. [facility] Medical History Endometriosis DIC (disseminated intravascular coagulation) Retained products of conception hemorrhage Conceived by in vitro fertilization Segmental and somatic dysfunction of lumbar region Segmental dysfunction of thoracic region Segmental dysfunction of lumbar region Hypothyroid Acute postoperative anemia due to greater than expected blood loss Vaginal delivery Infertility COVID-19 Recurrent bacterial infection Low-lying placenta Raynauds syndrome Home Medications ?Medication ?Instructions ?Recorded ?Last Taken ?Type PNV no.63-iron,carbonyl 27mg-folic 1 cap PO QDAY 10/02/24 Unknown History acid 800 mcg-dha 200 mg capsule conjugated estrogens 25 mg 25 mg IM ONCE 10/02/24 Unknown History solution for injection progesterone 50 mg/mL 10 mg IM QDAY 10/02/24 Unknown History intramuscular oil Allergy/AdvReac Type Severity Reaction Status Date / Time No Known Allergies Allergy Verified 10/05/24 21:56 Family History Father Lung cancer, Onset Age: 42 Mother Lymphoma, Onset Age: 54 Thyroid disorder Surgical History H/O dilation and curettage History of surgery Hx of wisdom tooth extraction Hx of tonsillectomy Hx of laparoscopy Social History adopted: No household members: spouse and children housing: house number of children: 1 current occupational status: employed 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 current occupational exposures/hazards: No pets and animals: Yes pets and animals: dog(s) history of recent travel: No sexually active: Yes Smoking Status: Never smoker alcohol intake: former details: not while substance use type: does not use well-balanced diet: daily or most days caffeine: No eating out: rarely or never during the past year weight has: increased > 10 lbs what type of physical activity do you participate in: walking, yoga and weight training frequency: 3-4 times per week duration: 30-45 minutes/day diego/latter-day: None seatbelt use: always do you feel safe at home: Yes 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 Has not fully saturated a pad but has changed it. No lightheadedness, no exacerbating or alleviating factors. EXAM Physical Exam Narrative Exam Narrative: Afebrile. Vital signs noted. Nontoxic-appearing. Cardiovascular examination reveals a regular rate and rhythm. Lungs clear to auscultation bilaterally. Abdomen is soft and nontender without guarding or rebound. Neurological examination nonfocal and nonlateralizing. No skin pallor. Const Vital Signs: 10/05/24 21:56 10/06/24 00:00 Temperature 97 F L Temperature Source Temporal Pulse Rate 85 89 Respiratory Rate 16 16 Blood Pressure 110/86 H 110/72 Blood Pressure Mean 94 84 Pulse Ox 100 99 Oxygen Delivery Method Room Air Room Air MDM MDM MDM Narrative Medical decision making narrative: Differential diagnosis includes but not limited to threatened miscarriage versus subchorionic hemorrhage. Patient states she is O+. She states that there was heart rate and intrauterine on her ultrasound at 6 weeks. Hence, I have lower suspicion for ectopic . I reviewed her prior EMR and she did have DIC with endometriosis and hemorrhage. I will obtain an ultrasound but have deferred pelvic exam as she was told that she was told to have pelvic rest at 6 weeks because of a subchorionic hemorrhage/hematoma. I reviewed her prior laboratory work and she is O+ and her blood type. I do not feel this needs to be repeated. Hence, I also do not feel that she requires RhoGAM. I reviewed her laboratory work and she has a white count of 13.7 which I think is nonspecific, hemoglobin 15, platelet count normal at 191. CMP remarkable for a CO2 of 20.5 which I think is nonspecific, glucose 109, hCG quantitative is 28,177. I reviewed the radiology report of the ultrasound which shows an intrauterine gestation with an average heart rate of 171 bpm. No noted subchorionic hemorrhage. Estimated age by ultrasound at 7 weeks and 2 days but by last menstrual period is 8 weeks and 4 days. I discussed the results with the patient, and once again she declines pelvic examination. I feel she can be discharged to follow-up with [facility]. They state that they have an appointment on Sunday, tomorrow as it is now past midnight. I will discuss patient with Dr. Nuñez on-call for [facility]. However, patient stated she did not want to wait any longer. I do feel that she can be discharged to follow-up and call the office later today. She has an appointment for the following day. She will return with increased pain or bleeding, new or worsening symptoms. Disposition is discharged home in stable condition. History & Record Review Discussion w/independent historian: Patient Additional record(s) reviewed:: Prior labs Lab Data Attestation: I reviewed the patient's lab results. Labs: Laboratory Results - last 24 hr 10/05/24 22:32 WBC 13.7 H RBC 4.61 Hgb 15.0 Hct 40.3 MCV 87.4 MCH 32.5 H MCHC 37.2 H RDW Std Deviation 38.3 RDW Coeff of Evens 12.0 Plt Count 191 MPV 12.1 H Immature Gran % (Auto) 0.500 Neut % (Auto) 58.0 Lymph % (Auto) 23.5 [place]ter % (Auto) 7.4 Eos % (Auto) 10.0 H Baso % (Auto) 0.6 Absolute Neuts (auto) 8.0 H Absolute Lymphs (auto) 3.23 Nucleated RBC % 0 Reactive Lymphocytes 2+ Sodium 137 Potassium 3.9 Chloride 104 Carbon Dioxide 20.5 L Anion Gap 12 BUN 16 Creatinine 0.96 Estim Creat Clear Calc 95.78 Est GFR (MDRD) Non-Af 81 BUN/Creatinine Ratio 16.5 Glucose 109 H Calcium 9.2 Total Bilirubin 0.44 AST 19 ALT 11 Alkaline Phosphatase 67 Total Protein 6.8 Albumin 4.3 Globulin 2.5 Albumin/Globulin Ratio 1.7 HCG, Quant 45978 H Radiography Diagnostic Testing: Clinical Impression(s) from Imaging Studies Obstetrics Ultrasound 10/05/24 22:23 IMPRESSION: UNREMARKABLE FIRST TRIMESTER ULTRASOUND. Reading Location: [id number] Discharge Plan Triage Chief Complaint: Vag Bld, Preg ED Provider: Nikko Guerrero Dx/Rx/DC Orders Clinical Impression: Threatened miscarriage, Vaginal bleeding during Instructions: Bleeding During Early , Miscarriage Threatened Prescriptions: No Action PNV no.63-iron,[id number]-LD-nfm 27 mg iron- 800 mcg-200 mg capsule 1 cap PO QDAY progesterone 50 mg/mL oil 10 mg IM QDAY conjugated estrogens 25 mg recon soln 25 mg IM ONCE Rx Instructions: as a single dose Primary Care Provider: Tatyana Matta Referrals: Nat Tellez MD [Med Staff - Active Staff] - Keep [facility] appointment Care Physician,No Primary [Non-Staff] - Print Language: Arabic Disposition Disposition: Home, Self Care
[2024-10-05 23:23] LABS: Absolute Lymphocyte Count 3.23 X10^3/uL (0.83-4.51); Basophil# 0.08 X10^3/uL; Basophil% 0.6 % (0-1); Eosinophil# 1.38 X10^3/uL; Hematocrit 40.3 % (37-47); Lymphocyte # 3.23 X10^3/ul (0.83-4.51); Lymphocyte % 23.5 % (19-41); Mean Corp Hgb Conc 37.2 g/dL (32-36); Mean Corpuscular Hgb 32.5 pg (27.0-32.0); Mean Corpuscular Volume 87.4 fL (81-99); Mean Platelet Vol. 12.1 fl (6.2-12.0); Monocyte# 1.02 X10^3/uL; Monocyte% 7.4 % (0-10); NRBC Flagged by Analyzer 0 % (0-5); Neutrophil # 7.96 X10^3/uL (2.7-7.7); POSITIVE MORPHOLOGY YES; Platelet Count 191 K/mm3 (150-450); RBC Distribution Width SD 38.3 fl (35.1-43.9); Red Blood Count 4.61 M/mm3 (4.2-5.4); White Blood Count 13.7 K/mm3 (4.4-11.0)
[2024-10-05 23:24] LABS: hCG Titer Quant., Serum 28177 mIU/mL (<9 non-preg)
[2024-10-05 23:26] LABS: Differential Indicated SCAN CRITERIA MET
[2024-10-05 23:57] LABS: Reactive Lymphocyte 2+
[2024-10-06] VITALS: BP 110/72; PULSE 89; RESP 16; O2SAT 99
[2024-10-06 00:34] LABS: ALB/GLOB Ratio 1.7 RATIO (0.9-2.4); AST(SGOT) 19 U/L (<=31); Alanine Aminotransfer ALT/SGPT 11 U/L (<=34); Albumin, Serum 4.3 g/dL (3.5-5.0); Alkaline Phosphatase 67 U/L (35-104); Anion Gap 12 (5-15); BUN 16 mg/dL (4-19); BUN/Creat Ratio 16.5 RATIO (10-20); Calcium,Total 9.2 mg/dL (7.6-11.0); Carbon Dioxide 20.5 mmol/L (21.0-32.0); Chloride 104 mmol/L (98-108); Creatinine, Serum 0.96 mg/dL (0.70-1.20); EST Glomerular Filtration Rate 81 (>60); Estimated Creatinine Clearance 95.78 ml/min (50-250); Globulin 2.5 g/dL (2.2-4.2); Glucose 109 mg/dL (70-99); Potassium 3.9 mmol/L (3.3-5.1); Protein, Total 6.8 g/dL (5.9-8.4); Sodium Level 137 mmol/L (133-145); Total Bilirubin 0.44 mg/dL (0.00-1.30)
[2024-10-06 01:09] VITALS: BP 103/83; PULSE 83; RESP 18; TEMP 36.8; O2SAT 99
== END 2024-10-06 01:10 | disposition home or self-care (01) ==
PROVIDERS: Emergency Provider Emergency Medicine; PCP Internal Medicine; Visit Provider Emergency Medicine
DX: O20.0 Threatened abortion (principal); Z3A.08 8 weeks gestation of pregnancy; Z86.16 Personal history of COVID-19
CPT/HCPCS: 76817; 80053; 84702; 85025; 99282; A4216

== ENCOUNTER → 2024-10-07 | Outpatient (CLI) | payer OTHER, SELFPAY ==
[2024-10-10 07:08] LABS: Chlamydia By Nucleic Acid AMP Negative (Negative); Gonococcus By Nucleic Acid AMP Negative (Negative)
== END | disposition home or self-care (01) ==
LOC: LABSPEC 16:09
PROVIDERS: PCP Internal Medicine; Referring Provider Advanced Practice Midwife; Visit Provider Advanced Practice Midwife
DX: O09.93 Supervision of high risk pregnancy, unspecified, third trimester (principal); Z3A.35 35 weeks gestation of pregnancy
CPT/HCPCS: 87086; 87491; 87591

== ENCOUNTER → 2024-10-21 | Outpatient (CLI) | payer OTHER, SELFPAY ==
[2024-10-21 16:01] LABS: Absolute Lymphocyte Count 2.02 X10^3/uL (0.83-4.51); Basophil# 0.05 X10^3/uL; Basophil% 0.5 % (0-1); Eosinophil# 0.66 X10^3/uL; Eosinophils% 6.3 % (0-5); Hematocrit 38.1 % (37-47); Hemoglobin 14.1 g/dL (12.0-15.0); Lymphocyte # 2.02 X10^3/ul (0.83-4.51); Lymphocyte % 19.2 % (19-41); Mean Corpuscular Hgb 32.8 pg (27.0-32.0); Mean Corpuscular Volume 88.6 fL (81-99); Mean Platelet Vol. 11.8 fl (6.2-12.0); Monocyte# 0.78 X10^3/uL; Monocyte% 7.4 % (0-10); NRBC Flagged by Analyzer 0 % (0-5); Neutrophil # 6.96 X10^3/uL (2.7-7.7); Neutrophil % 65.9 % (47-70); Platelet Count 216 K/mm3 (150-450); RBC Distribution Width CV 13.2 % (11.6-14.6); RBC Distribution Width SD 42.6 fl (35.1-43.9); White Blood Count 10.5 K/mm3 (4.4-11.0)
[2024-10-21 17:01] LABS: HIV Nonreactive (Nonreactive); Hepatitis C Antibody Nonreactive (Nonreactive); Rubella IgG REAC (Nonreactive); Syphilis Antibodies Nonreactive (Nonreactive)
[2024-10-22 19:15] LABS: Hepatitis B Surface Antigen Nonreactive (Nonreactive)
== END | disposition home or self-care (01) ==
PROVIDERS: PCP Internal Medicine; Referring Provider Obstetrics & Gynecology; Visit Provider Obstetrics & Gynecology
DX: O09.90 Supervision of high risk pregnancy, unspecified, unspecified trimester (principal); Z3A.00 Weeks of gestation of pregnancy not specified
CPT/HCPCS: 36415; 85025; 86703; 86762; 86780; 86803; 86850; 86900; 86901; 87340

== ENCOUNTER 2024-12-25 18:36 | Outpatient (CLI) | payer OTHER, SELFPAY ==
--- NOTE | 2024-12-25 15:27 | US_ITS ---
PROCEDURE: OB ANATOMY W/ TRANSVAGINAL 12/25/2024 REASON FOR EXAM: OB ANATOMY SCAN TECHNIQUE: OB ANATOMY W/ TRANSVAGINAL COMPARISON: Pelvic ultrasound 10/05/2024 FINDINGS Number: 1 Position: Vertex Placental Position: Anterior Placental Abnormalities: Limited evaluation is unremarkable DIMENSIONS: Biparietal Diameter: Not obtained Head Circumference: Not obtained Abdominal Circumference: 15.2 cm/53% Femur Length: 3.1 cm/22% ESTIMATED WEIGHT: Not obtained ESTIMATED WEIGHT PERCENTILE (24+ weeks): Not obtained ESTIMATED GESTATIONAL AGE: Baseline: 20 weeks 1 day By Ultrasound: 19 weeks 1 day ESTIMATED DATE OF DELIVERY: Baseline: 05/13/2025 By Ultrasound: 05/20/2025 BIOPHYSICAL ASSESSMENT: Amniotic Fluid Volume: Measures 4.9 cm in the right lower quadrant, other locations were not obtained Amniotic Fluid Index: Not performed (8-24 cm normal range) heart rate: 143 beats per minute MATERNAL ANATOMY: Adnexa: Neither maternal ovary is successfully identified. Cervical Length (if measured): 2.5 cm ANATOMY: Spine: Unremarkable Cranium: Poorly visualized Cerebellum: Suboptimally visualized, measuring 1.7 cm Cisterna Magna: Suboptimally visualized, measuring 0.7 cm Cavum Septum Pellucidi: Not visualized Lateral Ventricles: Not visualized Choroid Plexus: Unremarkable Upper Lip: Not visualized Heart: Not visualized Ventricular Outflow Tracts: Not visualized Stomach: Unremarkable Kidneys: Not well-visualized Bladder: Unremarkable Umbilical Cord: Normal three-vessel cord Extremities: Unremarkable US/OB Anatomy w/ Transvaginal IMPRESSION: 1. Markedly limited exam, with nonvisualization of numerous anatomic structure s as detailed above. Recommend patient return for additional imaging to complete the anatomy scan. 2. The questionable second uterus documented by the technologist is favored to represent the normal cervix and lower uterine segment, as there was no uterine anomaly seen on the ultrasound dated 5. Per Dr. Mendenhall, MRI is planned to exclude ectopic . 3. Deepest vertical pocket of amniotic fluid measures 4.9 cm, normal. Impression in this case discussed with Dr. Mendenhall on 12/25/2024 at 6:55 p.m . Reading Location: [id number]
--- NOTE | 2024-12-25 18:41 | MRI_ITS ---
EXAM: PELVIS (ROUTINE) 12/25/2024 CLINICAL HISTORY: ABNORMAL US. The auto bumper straightener questioned existence of 2 placentas. Final radiologist's interpretation of the ultrasound was 1 placenta. TECHNIQUE: PELVIS (ROUTINE) Multiplanar and multisequence images were obtained without intravenous gadolinium contrast. COMPARISON: Ob anatomy ultrasound of December 25, 2024 FINDINGS: Placenta position is anterior and left lateral. Only single placenta is identified. Fetus presentation is vertex. It is difficult to comment on fine anatomic detail, but grossly no anatomic abnormalities appreciated. MRI/Pelvis (Routine) IMPRESSION: Normal anterior and lateral placenta. No evidence of 2nd placenta. Reading Location[facility]
--- NOTE | 2024-12-25 19:14 | NURSING ---
Pt arrived and in room. MRI ordered and Questionnaire completed. Pt to MRI at 1900.
--- NOTE | 2024-12-25 20:21 | NURSING ---
Call placed to provider to notify that MRI has been completed, but not yet read. Provider reviewing the MRI images from home. Per JV, radiologist was going to read MRI STAT. Plan to wait on radiologist to read MRI unless waiting longer than 2114, then may discharge to home. Provider has already called MFM to place order for anatomy scan to be redone, should call patient tomorrow to schedule.
--- OUTSIDE RECORDS SUMMARY | 2024-12-25 20:35 | XMS RPT_ITS | CCD ---
Author Organization [facility] Care Team Providers Care Field Reporter Name Role Phone RACHNA ALVAREZ Unavailable Unavailable Damon Koch Unavailable Unavailable August HELTON, Damon Unavailable Unavailable Mikala HELTON, Angela Unavailable Unavaila Sonia Baca DO Primary Care Provider PCP, Pt States None Referring Unavailable Dr. LORI WILLIAMSON Attending Unavailable Shannan Vazquez Primary Care Provider Shannan Vazquez Referring Provider Dr. Paola Weeks Attending Provider Shannan Vazquez Attending Provider LORI WILLIAMSON DO Attending Unavailable LORI WILLIAMSON DO Admitting Unavailable AA NO PCP, NO PCP Primary Care Unavailable SCOTTIE VITALE CRNA Consulting Unavailable KIP AKINS DO Consulting Unavailable Shannan Rodriguez Primary Care Provider Shannan Rodriguez Referring Provider Dr. Paola Weeks Attending Provider Shannan Rodriguez Attending Provider Dr. Nat Gomez Attending Provider RAFY Casillas Attending Provider [phone] Kathy BOAT DECKHAND, DAYNA Dumont Attending Provider Shannan Rodriguez Primary Care Provider Shannan Rodriguez Referring Provider Dr. Chris Lazaro Attending Provider LIUDMILA Armstrong Attending Provider [phone] Paola Weeks Attending Provider Dr. Ronni Larkni Attending Provider [phone] Shannan Rodriguez Referring Provider VAZQUEZ, SHANNAN Primary Care Provider Dr. Paola Weeks Referring Provider Vazquez Shannan PHELPS Referring Provider VAZQUEZ, SHANNAN Primary Care Provider Roberto HILLMAN, RAFY Fuentes Attending Provider VAZQUEZ, SHANNAN Primary Care Provider DO SHANNAN VAZQUEZ Referring Provider LIUDMILA Armstrong Attending Provider [phone] LIUDMILA Cordon Attending Provider [phone] Nat Gomez Admit Provider [phone] Nat Gomez Other Provider [phone] LIUDMILA Armstrong Admit Provider LIUDMILA Armstrong Other Provider Dr. Sampson De León Emergency Provider Dr. Nat Gomez Attending Provider [phone] Dr. Valentine Urbina Attending Provider Dr. Valentine Urbina Other Provider Dr. Nidhi Haro Attending Provider [phone] Nidhi Haro Other Provider Shannan Vazquez DO M Primary Care Provider VAZQUEZDO SHANNAN Primary Care Provider Dr. Sampson De León Emergency Provider Dr. Nat Gomez Attending Provider [phone] Dr. Nat Gomez Referring Provider Dr. Nat Gomez Other Provider [phone] Nat Gomez Admit Provider [phone] Dr. Valentine Urbina Attending Provider Dr. Valentine Urbina Other Provider Dr. Nidhi Haro Attending Provider Dr. Nidhi Haro Other Provider Dr. Paola Weeks Attending Provider VAZQUEZDO KRAUS Referring Provider LIUDMILA Armstrong Attending Provider [phone] RAFY Glasgow Referring Provider RAFY Glasgow Other Provider Dr. Neil Wiggins Attending Provider DEEJAY GLASGOW Attending Unavailable VAZQUEZSHANNAN Primary Care Unavailable DO SHANNAN VAZQUEZ Primary Care Provider [phone] RAFY Glasgow Referring Provider RAFY [place] Other Provider Dr. Neil Wiggins Attending Provider SHANNAN VAZQUEZ DO Primary Care Provider [phone] TAYLOR GOLDBERG, SHANNAN Referring Provider Dosmyra ZHENG, Dr. Valdovinos Attending Provider [phone] Nikko Guerrero MD Emergency Provider Dr. Tatyana Matta MD Primary Care Provider Nikko Guerrero MD Attending Provider Niya Armstrong CNM Attending Provider [phone] Niya Armstrong CNM Referring Provider Dr. Tatyana Matta MD Referring Provider Dr. Nat Gomez MD Attending Provider [phone] Dr. Nat Gomez MD Referring Provider [phone] SHANNAN VAZQUEZ DO Referring Provider Dosmyra ZHENG, Dr. Valdovinos Attending Provider [phone] Nick Cordon CNM Attending Provider Bharathi Casillas Attending Provider Paxton, Tatyana Primary Care Unavailable Niya Armstrogn Attending Unavailable Niya Armstrong Referring Unavailable Paxton, Tatyana Primary Care Unavailable Nat Gomez Referring Unavailable Nat Gomez Attending Unavailable Paxton, Tatyana Primary Care Unavailable Nikko Guerrero Attending Unavailable Aruna Gomez Attending Unavailable VAZQUEZ, SHANNAN Primary Care Unavailable VAZQUEZ, SHANNAN Referring Unavailable Paxton, Tatyana Primary Care Unavailable VAZQUEZ, SHANNAN Referring Unavailable Niya Armstrong Attending Unavailable Paxton, Tatyana Attending Unavailable VAZQUEZ, SHANNAN Primary Care Unavailable VAZQUEZ, SHANNAN Referring Unavailable Paxton, Tatyana Primary Care Unavailable [place], Tatyana Referring Unavailable Nat Gomez Attending Unavailable [place], Tatyana Primary Care Unavailable [place], Tatyana Referring Unavailable Niya Armstrong Attending Unavailable Aruna Gomez Attending Unavailable Paxton, Tatyana Primary Care Unavailable Paxton, Tatyana Referring Unavailable Paxton, Tatyana Primary Care Unavailable Paxton, Tatyana Referring Unavailable Nick Cordon Attending Unavailable DosAruna renteria Attending Unavailable [place]xton, Tatyana Primary Care Unavailable [place], Tatyana Referring Unavailable [place], Tatyana Primary Care Unavailable Paxton, Tatyana Referring Unavailable Bharathi Casillas Attending Unavailable Aruna Gomez Attending Unavailable [place], Tatyana Primary Care Unavailable Paxton, Tatyana Referring Unavailable VAZQUEZ, SHANNAN Referring Unavailable VAZQUEZ, SHANNAN Primary Care Unavailable Niya Armstrong Attending Unavailable Joseph Thorne Attending Unavailable VAZQUEZ, SHANNAN Primary Care Unavailable VAZQUEZ, SHANNAN Referring Unavailable VAZQUEZ, SHANNAN Primary Care Unavailable Niya Armstrong Referring Unavailable Niya Armstrong Attending Unavailable Allergies Allergy Classification Reported Allergen(s) Allergy Type Date of Onset Reaction(s) Facility (1 source) Seasonal allergy; Translations: [SEASONAL ALLERGIES] Propensity to adverse reactions (disorder) [facility] Repository (2 sources) Other Allergy to substance 6 [facility] Medications Current Medications Medication Drug Class(es) Dates Sig (Normalized) Sig (Original) acetaminophen 500 mg oral tablet (3 sources) Start: 05-27-2021 take 2 tablets by mouth every six hours acetaminophen (TYLENOL) 500 MG tablet Take 2 tablets by mouth every 6 hours 540 tablet 1 05/27/2021 Active Start: 12-17-2020 take 2 tablets by mo [facility] every six hours as needed for pain acetaminophen (TYLENOL) 325 MG tablet TAKE 2 TABLETS BY MOUTH EVERY 6 HOURS NEEDED FOR PAIN. 0 12/17/2020 Active 120 actuat albuterol 0.1 mg/actuat / ipratropium bromide 0.02 mg/actuat inhalation spray (1 source) Anticholinergic, beta2-Adrenergic Agonist Start: 03-15-2023 End: 03-14-2024 take 20-100 ug by inhalation four times daily ipratropium-albuterol (Combivent Respimat) 20-100 MCG/ACT inhaler Indications: Bronchospasm Inhale 2 puffs 4 times daily. 14.7 g 1 03/15/2023 03/14/2024 Active azithromycin 250 mg oral tablet (19 sources) Macrolide Antimicrobial Start: 12-11-2024 take 2-5 tablets by mouth once daily Azithromycin 250 mg tablet Active 0 PO .COMPLEX 6 0 December 11, 2024 12:00am take 500 mg today (day 1), then 250 mg for 4 days (days 2-5) PO Start: 08-22-2022 End: 09-26-2022 take 2-5 tablets by mouth once daily Azithromycin 250 mg tablet Discontinued 0 PO .COMPLEX 6 0 August 22, 2022 12:00am September 26, 2022 10:03am take 500 mg today (day 1), then 250 mg for 4 days (days 2-5) PO ibuprofen 600 mg oral tablet (3 sources) Nonsteroidal Anti-inflammatory Drug Start: 05-27-2021 take 1 tablet by mouth every six hours ibuprofen (ADVIL;MOTRIN) 600 MG tablet Take 1 tablet by mouth every 6 hours 40 tablet 0 05/27/2021 Active Start: 12-17-2020 take 1 tablet by [place] every six hours ibuprofen (ADVIL;MOTRIN) 600 MG tablet Take 600 mg by mouth every 6 hours 0 12/17/2020 Active Ipratropium [place] 21 mcg (0.03 %) spray,non-aerosol (1 source) Start: 12-11-2024 Ipratropium [place] 21 mcg (0.03 %) spray,non-aerosol Active 2 NMA INTRANASAL 2 to 3 times per day as needed for postnasal drainage 30 0 December 11, 2024 12:00am administer into each nostril montelukast 10 mg oral tablet (1 source) Leukotriene Receptor Antagonist Start: 03-15-2023 End: 09-11-2023 take 1 tablet by mouth once daily montelukast (Singulair) 10 MG tablet Indications: Bronchospasm Take 1 tablet (10 mg) by mouth Nightly. 30 tablet 5 03/15/2023 09/11/2023 Active neomycin sulfate 500 mg oral tablet (1 source) Aminoglycoside Antibacterial Start: 05-12-2021 neomycin (MYCIFRADIN) 500 MG tablet On the day prior to surgery take two tablets at 1:00pm; two tablets at 2:00pm; two tablets at 11:00pm 6 tablet 0 05/12/2021 Active norethindrone acetate 5 mg oral tablet (2 sources) Start: 03-14-2021 take 1 tablet by mouth once daily norethindrone (AYGESTIN) 5 MG tablet Take 1 tablet by mouth daily 30 tablet 3 03/14/2021 Active [place]-3 Fatty Acids (FISH OIL) 500 MG CAPS (1 source) [place]-3 Fatty Ac ids (FISH OIL) 500 MG CAPS Take by mouth daily 0 Active ondansetron 4 mg disintegrating oral tablet (6 sources) Serotonin-3 Receptor Antagonist Start: 11-04-2024 take 1 tablet by mouth every six hours as needed for nausea and vomiting Ondansetron 4 mg tablet,disintegratin g Active 4 mg PO EVERY 6 HOURS as needed for nausea and vomiting 30 4 November 04, 2024 12:00am Nausea and vomiting during Vomiting of , unspecified Pnv No.63-Iron,Carbonyl-F a-Dha 27 mg iron- 800 mcg-200 mg capsule (9 sources) Start: 10-02-2024 Pnv No.63-Iron,Carbonyl- Fa-Dha 27 mg iron- 800 mcg-200 mg capsule Active 1 NMA PO daily October 02, 2024 12:00am Vit-Fe Fumarate-FA ( VITAMIN PO) (3 sources) Vit-Fe Fumarate-FA ( VITAMIN PO) Probiotic Product (PROBIOTIC-10 PO) (3 sources) Probiotic Produc t (PROBIOTIC-10 PO) simethicone 80 mg chewable tablet (1 source) Start: 05-27-2021 take 1 tablet by mouth four times daily as needed simethicone (MYLICON) 80 MG chewable tablet Take 1 tablet by mouth 4 times daily as needed for Flatulence 180 tablet 3 05/27/2021 Active 1000 ml sodium chloride 9 mg/ml injection (1 source) Start: 04-06-2021 0.9 % sodium chloride infusion tretinoin 0.25 mg/ml topical cream (3 sources) Retinoid Start: 01-14-2021 tretinoin (RETIN-A) 0.025 % cream APPLY A PEA SIZED AMOUNT TO AFFECTED AREAS OF FACE NIGHTLY 0 01/14/2021 Active vitamin B12 (3 sources) Vitamin B12 Cyanocobalamin (VITAMIN B 12 PO) Completed/Discontinued Medications Medication Drug Class(es) Dates Sig (Normalized) Sig (Original) [id number] 200 actuat albuterol 0.09 mg/actuat metered dose inhaler (20 sources) beta2-Adrenergic Agonist Start: 08-22-2022 End: 03-15-2023 take 2 puff(s) by inhalation four times daily albuterol 108 (90 Base) MCG/ACT inhaler Inhale 2 puffs 4 times daily. 18 g 2 03/15/2023 Active Start: 08-22-2022 End: 05-01-2024 Albuterol Sulfate 90 mcg/act uation HFA aerosol inhaler Discontinued 2 NMA INHALATION EVERY 6 HOURS as needed for shortness of breath or wheezing February 25, 2023 12:00am May 01, 2024 3:39pm Start: 08-22-2022 End: 02-25-2023 take 1 puff(s) by inhalation every six hours Albuterol Sulfate Active 2 PUFF INHALATION EVERY 6 HOURS February 25, 2023 12:00am amoxicillin 500 mg oral tablet (9 sources) Penicillin-class Antibacterial Start: 03-28-2024 End: 05-01-2024 take 1 tablet by mouth three times daily Amoxicillin 500 mg tablet Discontinued 500 mg PO THREE TIMES A DAY 30 0 March 28, 2024 12:00am May 01, 2024 3:27pm cholecalciferol 0.05 mg oral capsule (20 sources) Vitamin D Start: 07-11-2022 End: 08-08-2022 take 1 capsule by mouth once daily Cholecalciferol (Vitamin D3) 50 mcg (2,000 unit) capsule Discontinued 50 ug PO DAILY July 11, 2022 1:00am August 08, 2022 11:44am Cholecalciferol (VITAMIN D3 PO) Desogestrel-Ethinyl Estradiol (9 sources) Progestin, Estrogen Start: 03-27-2024 End: 07-22-2024 take 0.15 tablet by mouth once daily Desogestrel-Ethinyl Estradiol (Apri) 0.15-0.03 mg tablet Discontinued 1 {tbl} PO daily March 27, 2024 12:00am July 22, 2024 4:11pm estradiol 0.5 mg oral tablet (20 sources) Estrogen Start: 07-11-2022 End: 08-08-2022 take 4 tablets by mouth twice daily Estradiol (Estrace) 0.5 mg tablet Discontinued 2 mg PO TWICE A DAY July 11, 2022 11:46am August 08, 2022 11:44am Start: 07-06-2022 End: 07-11-2022 take 1 tablet by mouth twice daily Estradiol (Estrace) 0.5 mg tablet Discontinued 0.5 mg PO TWICE A DAY July 06, 2022 1:00am July 11, 2022 11:47am off 5 days; repeat cycle estrogens, conjugated (correction) 25 mg injection (17 sources) Estrogen Start: 10-07-2024 End: 10-21-2024 Conjugated Estrogens 25 mg recon soln Discontinued 20 mg IM .q3days October 07, 2024 2:59pm October 21, 2024 2:58pm 20mg/1mL takes 0.3mL q3days Start: 10-02-2024 End: 10-07-2024 inject 25 mg by intramuscular injection once Conjugated Estrogens 25 mg recon soln Discontinued 25 mg IM ONCE October 02, 2024 12:00am October 07, 2024 3:02pm as a single dose Ferrous Fumarate-Vitamin C (Miladys-Sequels (Iron-Vit C)) 200 mg (65 mg iron)-25 mg tablet extended release (12 sources) Start: 02-27-2023 End: 05-01-2024 take 1 tablet by mouth once daily Ferrous Fumarate-Vitamin C (Miladys-Sequels (Iron-Vit C)) 200 mg (65 mg iron)-25 mg tablet extended release Discontinued 1 {tbl} PO DAILY 08 12February 27, 2023 12:00am May 01, 2024 3:27pm Start: 02-27-2023 End: 05-01-2024 take 1 tablet by mouth once daily Ferrous Fumarate-Vitamin C (Miladys-Sequels (Iron-Vit C)) 200 mg (65 mg iron)-25 mg tablet extended release Discontinued 1 {tbl} PO DAILY February 27, 2023 12:00am May 01, 2024 3:27pm Start: 02-27-2023 take 1 tablet by [place] th once daily Ferrous Fumarate-Vitamin C (Miladys-Sequels (Iron-Vit C)) 200 mg (65 mg iron)-25 mg tablet extended release Active 1 TABLET PO DAILY February 26, 2023 11:00pm Start: 02-27-2023 take 1 tablet by [place] th once daily Ferrous Fumarate-Vitamin C (Miladys-Sequels (Iron-Vit C)) 200 mg (65 mg iron)-25 mg tablet extended release Active 1 TABLET PO DAILY February 27, 2023 12:00am ferrous sulfate 325 mg oral tablet (11 sources) Start: 03-16-2023 End: 03-16-2023 take 1 tablet by mouth once daily Ferrous Sulfate 325 mg (65 mg iron) tablet Discontinued 325 mg PO DAILY March 16, 2023 12:00am March 16, 2023 1:31pm fluticasone propionate 0.05 mg/actuat metered dose nasal spray (1 source) Corticosteroid Start: 04-18-2016 take 2 spray(s) nasal route once daily Flonase Allergy Relief 50 MCG/ACT Nasal Suspension USE 2 SPRAYS IN EACH NOSTRIL ONCE DAILY Refills: 0 Start : 18-Apr-2016 Active Lactobacillus Combination No.4 (Probiotic) 3 billion cell capsule (11 sources) Start: 03-16-2023 End: 05-01-2024 take 3 capsules by mouth once daily Lactobacillus Combination No.4 (Probiotic) 3 billion cell capsule Discontinued 3000 NMA PO DAILY March 16, 2023 12:00am May 01, 2024 3:27pm administer with a meal Start: 03-16-2023 take 3 capsules by m outh once daily Lactobacillus Combination No.4 (Probiotic) 3 billion cell capsule Active 3000 MMU CELLS PO DAILY March 16, 2023 12:00am administer with a meal Start: 03-16-2023 take 3 capsules by m outh once daily Lactobacillus Combination No.4 (Probiotic) 3 billion cell capsule Active 3000 MMU CELLS PO DAILY March 15, 2023 11:00pm administer with a meal levothyroxine sodium 0.05 mg oral tablet (20 sources) l-Thyroxine Start: 09-26-2022 End: 09-26-2022 Levothyroxine (Synthroid) 50 mcg tablet Discontinued 25 ug PO DAILY 90 3 September 26, 2022 10:44am September 26, 2022 11:04am Start: 09-26-2022 End: 03-27-2024 take 1 tablet by mouth once daily Levothyroxine 25 mcg tablet Discontinued 25 ug PO DAILY 90 3 September 26, 2022 12:00am March 27, 2024 2:00pm Start: 07-06-2022 End: 09-26-2022 take 1 tablet by mouth once daily Levothyroxine (Synthroid) 50 mcg tablet Discontinued 50 ug PO DAILY July 06, 2022 1:00am September 26, 2022 10:04am loratadine 10 mg oral tablet (1 source) Start: 04-18-2016 take 1 tablet by mouth at bedtime Claritin 10 MG Oral Tablet TAKE 1 TABLET AT BEDTIME. Refills: 0 Start : 18-Apr-2016 Active Multivit 99-Ihke-Atsnfk 1-Dha (Pnv-Dha) 27 mg iron-1 mg -300 mg capsule (19 sources) Start: 07-06-2022 End: 05-01-2024 Multivit 87-Tcey-Vfutwj 1-Dha (Pnv-Dha) 27 mg iron-1 mg -300 mg capsule Discontinued 1 NMA PO DAILY July 06, 2022 1:00am May 01, 2024 3:27pm Start: 07-06-2022 take 1 capsule by [facility] once daily Multivit 46-Iiep-Hyfsvg 1-Dha (Pnv-Dha) 27 mg iron-1 mg -300 mg capsule Active 1 CAP PO DAILY July 06, 2022 12:00am Start: 07-06-2022 take 1 capsule by [facility] once daily Multivit 40-Yqlp-Gkkvzb 1-Dha (Pnv-Dha) 27 mg iron-1 mg -300 mg capsule Active 1 CAP PO DAILY July 06, 2022 1:00am Start: 07-06-2022 Multivit 47-Ir on-Folate 1-Dha (Pnv-Dha) 27 mg iron-1 mg -300 mg capsule Active CAP PO July 06, 2022 1:00am Start: 07-06-2022 Multivit 47-Ir on-Folate 1-Dha (Pnv-Dha) 27 mg iron-1 mg -300 mg capsule Active CAP PO July 06, 2022 12:00am Multivitamin tablet (9 sources) Start: 05-01-2024 End: 10-02-2024 Multivitamin tablet Discontinued 1 {tbl} PO daily May 01, 2024 1:00am October 02, 2024 1:06pm [place] 0-Xtc-Obr-Fish Oil (Fi sh Oil) 60-90-500 mg capsule (19 sources) Start: 07-06-2022 End: 08-08-2022 [place] 9-Fss-Iby-Fish Oil (Fi sh Oil) 60-90-500 mg capsule Discontinued 1 NMA PO DAILY July 06, 2022 1:00am August 08, 2022 11:45am Start: 07-06-2022 End: 08-08-2022 take 1 capsule by mouth once daily [place] 5-Edm-Bwr-Fish Oil (Fish Oil) 60-90-500 mg capsule Discontinued 1 CAP PO DAILY July 06, 2022 12:00am August 08, 2022 10:45am Start: 07-06-2022 End: 08-08-2022 take 1 capsule by mouth once daily [place] 3-Ita-Kah-Fish Oil (Fish Oil) 60-90-500 mg capsule Discontinued 1 CAP PO DAILY July 06, 2022 1:00am August 08, 2022 11:45am Start: 07-06-2022 take 1 capsule by [facility] once daily [place] 6-Hxx-Pec-Fish Oil (Fish Oil) 60-90-500 mg capsule Active 1 CAP PO DAILY July 06, 2022 12:00am progesterone 50 mg/ml injectable solution (20 sources) Progesterone Start: 10-07-2024 End: 10-21-2024 inject 75 mg by intramuscular injection once daily Progesterone 50 mg/mL oil Discontinued 75 mg IM daily October 07, 2024 3:01pm October 21, 2024 2:58pm Start: 10-02-2024 End: 10-07-2024 inject 10 mg by intramuscular injection once daily Progesterone 50 mg/mL oil Discontinued 10 mg IM daily October 02, 2024 12:00am October 07, 2024 3:02pm Start: 07-06-2022 End: 08-08-2022 inject 5 mg by intramuscular injection once daily Progesterone 50 mg/mL oil Discontinued 5 mg IM DAILY July 06, 2022 1:00am August 08, 2022 11:45am Start: 07-06-2022 End: 08-08-2022 inject 5 mg by intramuscular injection once daily Progesterone Discontinued 5 MG IM DAILY July 06, 2022 1:00am August 08, 2022 11:45am tobramycin 3 mg/ml ophthalmic solution (9 sources) Aminoglycoside Antibacterial Start: 03-28-2024 End: 05-01-2024 Tobramycin 0.3 % drops Discontinued 1 NMA OPHTHALMIC Q2H 5 0 March 28, 2024 12:00am May 01, 2024 3:27pm to affected eye while awake first 24 hours, then 3x/day on days 2-5 Turmeric extract (19 sources) Start: 07-06-2022 End: 08-22-2022 Turmeric (Bulk) (Curcumin) 95 % powder Discontinued NMA July 06, 2022 1:00am August 22, 2022 9:21am Start: 07-06-2022 End: 08-22-2022 Turmeric (Bulk) (Curcumin) 9 5 % powder Discontinued EACH July 06, 2022 12:00am August 22, 2022 8:21am Start: 07-06-2022 End: 08-22-2022 Turmeric (Bulk) (Curcumin) 9 5 % powder Discontinued EACH July 06, 2022 1:00am August 22, 2022 9:21am Start: 07-06-2022 Turmeric (Bulk ) (Curcumin) 95 % powder Active EACH July 06, 2022 12:00am Problems Active Problems Problem Classification Problem Date Documented Date Episodic/Chronic Abdominal pain (20 sources) Chronic pelvic pain of female; Translations: [Pelvic and perineal pain] Onset: 01-31-2021 01-31-2021 Episodic Acute bronchitis (20 sources) Acute bronchitis; Translations: [Acute bronchitis, unspecified] 08-29-2022 Episodic Acute posthemorrhagic anemia (14 sources) Anemia following acute postoperative blood loss; Translations: [Acute posthemorrhagic anemia] 02-26-2023 Episodic Comment on above: transfused 1 unit SD BCs and 1 unit FFP, will give 2nd unti PRBC Bacterial infection; unspecified site (20 sources) Recurrent bacterial infection; Translations: [Bacterial infection, unspecified] 10-25-2022 Episodic Coagulation and hemorrhagic disorders (20 sources) Disseminated intravascular coagulation; 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]] Onset: 10-07-2024 02-26-2023 Chronic Comment on above: clinical bleeding st able, given 1 unit PRBC and 1 unit FFP, repeat coags stable and improving, will give second unit PRBCs Endometriosis (20 sources) Endometriosis (clinical); Translations: [Endometriosis, unspecified] Onset: 01-31-2021 01-31-2021 Chronic Hemorrhage during ; abruptio placenta; placenta previa (20 sources) Low lying placenta; Translations: [Low lying placenta NOS or without hemorrhage, unspecified trimester] Onset: 10-07-2024 11-29-2022 Episodic Comment on above: US @ 28 weeks resolv ed Lymphadenitis (20 sources) Lymphadenopathy; Translations: [Generalized enlarged lymph nodes] 11-29-2022 Episodic Comment on above: suspected. right mukund in- would like to try warm compresses and epsom salt baths before further testing. ultrasound ordered on 11/29 Menstrual disorders (1 source) Excessive and frequent menstruation with irregular cycle Onset: 09-28-2017 Chronic Other bone disease and musculoskeletal deformities (14 sources) Segmental and somatic dysfunction; Translations: [Segmental and somatic dysfunction of lumbar region] 10-02-2024 Episodic Other bone disease and musculoskeletal deformities (15 sources) Lumbar segmental dysfunction ; Translations: [Segmental and somatic dysfunction of lumbar region] 10-02-2024 Episodic Other bone disease and musculoskeletal deformities (15 sources) Thoracic segmental dysfunction; Translations: [Segmental and somatic dysfunction of thoracic region] 10-02-2024 Episodic Other bone disease and musculoskeletal deformities (1 source) Segmental and somatic dysfunction of lumbar region; Translations: [Segmental and somatic dysfunction of lumbar region] Onset: 12-16-2024 Episodic Other bone disease and musculoskeletal deformities (1 source) Segmental and somatic dysfunction of thoracic region; Translations: [Segmental and somatic dysfunction of thoracic region] Onset: 12-16-2024 Episodic Other circulatory disease (1 source) Raynaud's phenomenon; Translations: [Raynaud's syndrome] Chronic Other circulatory disease (19 sources) Raynaud's disease; Translations: [Raynaud's syndrome without gangrene] 07-06-2022 Chronic Other circulatory disease (1 source) Raynaud's syndrome without gangrene; Translations: [Raynaud's syndrome] 07-11-2022 Chronic Other circulatory disease (1 source) Other specified symptoms and signs involving the circulatory and respiratory systems; Translations: [Other specified symptoms and signs involving the circulatory and respiratory systems] Onset: 10-07-2024 Episodic Other complications of ; puerperium affecting management of mother (13 sources) hemorrhage; Translations: [Other immediate hemorrhage] 02-25-2023 Episodic Comment on above: 3 weeks , given methergine hemabate, TXA, pitocin, cytotec, bakri balloon. ancef given while bakri balloon in. Other complications of ; puerperium affecting management of mother (3 sources) Other immediate hemorrhage; Translations: [Other immediate hemorrhage, unspecified as to episode of care or not applicable] 02-25-2023 Episodic Other complications of (20 sources) High risk ; Translations: [Supervision of high risk , unspecified, unspecified trimester] 07-06-2022 Episodic Comment on above: , TETO 05/13/25 PC Angelito Yayo PRR , TETO 02/13/23 , Yayo Other complications of (20 sources) Supervision of high risk , unspecified, unspecified trimester; Translations: [Supervision of unspecified high-risk ] Onset: 11-04-2024 07-11-2022 Episodic Other complications of (9 sources) Retained products of conception 10-02-2024 Episodic Comment on above: 3 weeks PP, s/p suct ion d and c Other complications of (20 sources) History of hemorrhage; Translations: [Supervision of with other poor reproductive or obstetric history, unspecified trimester] 10-02-2024 Episodic Comment on above: retained products of conception 3wk PP s/p suction D and C Other complications of (1 source) Supervision of with other poor reproductive or obstetric history, unspecified trimester; Translations: [Supervision of with other poor reproductive or obstetric history, unspecified trimester] Onset: 11-04-2024 Episodic Other complications of (1 source) Vomiting of , unspecified; Translations: [Vomiting of , unspecified] Onset: 11-04-2024 Episodic Other complications of (1 source) Supervision of high risk , unspecified, third trimester; Translations: [Supervision of high risk , unspecified, third trimester] Onset: 10-13-2024 Episodic Other female genital disorders (1 source) Abnormal uterine and vaginal bleeding, unspecified; Translations: [Abnormal uterine and vaginal bleeding, unspecified] Onset: 12-11-2024 Chronic Other and delivery including normal (20 sources) ; Translations: [Encounter for supervision of normal , unspecified, unspecified trimester] 07-24-2022 Episodic Comment on above: KW IOL at 39 weeks f or IVF, girl 02/17 39 week IOL for IVF elects NIPT w gender , carrier declines NIPT low risk, moncho er declines Other upper respiratory disease (1 source) Allergic rhinitis; Translations: [Allergic rhinitis, cause unspecified] Chronic Other upper respiratory disease (1 source) Bronchospasm; Translations: [Acute bronchospasm] 03-15-2023 Episodic Otitis media and related conditions (1 source) Non-suppurative otitis media; Translations: [Nonsuppurative otitis media, not specified as acute or chronic] Episodic Residual codes; unclassified (20 sources) Conceived by in vitro fertilization; Translations: [Other specified health status] 07-06-2022 Episodic Comment on above: transfer 08/26/24 transfer 08/26/24, pl an echo at 22-24 weeks Residual codes; unclassified (20 sources) Other specified health status; Translations: [Other specified conditions influencing health status] Onset: 11-04-2024 07-11-2022 Episodic Residual codes; unclassified (20 sources) Infertile 10-02-2024 Episodic Comment on above: IVF transfer 08/26/24 Residual codes; unclassified (1 source) 12 weeks gestation of ; Translations: [12 weeks gestation of ] Onset: 11-04-2024 Episodic Residual codes; unclassified (1 source) 10 weeks gestation of ; Translations: [10 weeks gestation of ] Onset: 10-21-2024 Episodic Residual codes; unclassified (1 source) 35 weeks gestation of ; Translations: [35 weeks gestation of ] Onset: 10-07-2024 Episodic Residual codes; unclassified (1 source) 8 weeks gestation of ; Translations: [8 weeks gestation of ] Onset: 10-07-2024 Episodic Thyroid disorders (20 sources) Hypothyroidism; Translations: [Unspecified acquired hypothyroidism] Onset: 04-20-2022 07-11-2022 Chronic Comment on above: patient took synthro id during fertility treatments. reports TSH was never abnormal, but wanted it optimized. Unclassified (1 source) Unknown / UNK(Unknown) Onset: 09-28-2017 Unclassified (7 sources) Retained products of conception; Translations: [Retained products of conception] 02-25-2023 Urinary tract infections (1 source) Acute urinary tract infection; Translations: [Urinary tract infection, site not specified] Episodic Viral infection (20 sources) Disease caused by 2019-nCoV; Translations: [COVID-19] 01-23-2023 Episodic Comment on above: Growth US 01/22:94% Past or Other Problems Problem Classification Problem Date Documented Date Episodic/Chronic Immunizations and screening for infectious disease (4 sources) Anti-nuclear factor positive; Translations: [Other and unspecified nonspecific immunological findings] Onset: 03-15-2023 03-15-2023 Episodic Other aftercare (1 source) Other fci (current) drug therapy; Translations: [OTH CEMENT FITTINGS MAKER CURRENT DRUG THERAPY] Onset: 04-20-2022 Episodic Other aftercare (1 source) halfway (current) use of hormonal contraceptives; Translations: [CEMENT FITTINGS MAKER HORMONAL CONTRACEPTIVES] Onset: 04-20-2022 Episodic Other female genital disorders (2 sources) Polyp of corpus uteri; Translations: [POLYP OF CORPUS UTERI] Onset: 04-20-2022 Episodic Other screening for suspected conditions (not mental disorders or infectious disease) (2 sources) Thyroid function tests abnormal; Translations: [Other abnormal blood chemistry] Onset: 04-17-2024 Episodic Other upper respiratory disease (2 sources) Acute bronchospasm; Translations: [Acute bronchospasm] Onset: 03-15-2023 Episodic Residual codes; unclassified (3 sources) Postoperative state; Translations: [Other specified postprocedural states] Onset: 05-26-2021 05-26-2021 Episodic NEGATED: Highlighted row has not occurred!Residual codes; unclassified (1 source) Disease Episodic Results Test Name Value Interpretation Reference Range Facility Chiropractic Reporton 2024 Chiropractic Report [facility] [address] [place] [address] OFFICE VISIT Date of Service: 12/16/24 MR#: [id number] Acct: [id number] Name: KATIE ROBB Rep #: [id number] : 1990 Provider: MARCE Dela Cruz Age/Sex: 34/F Location: [facility] Status: Signed Intake Vital Signs 11/04/24 15:20 12/05/24 11:44 Height 5 ft 7 in 5 ft 7 in Weight: 195 lb 4 oz BMI 30.5 BP 116/82 H Intake Visit Reasons: ADJUSTMENT Chief Complaint: cough, congest, drainage, ST Allergies No Known Allergies Allergy (Verified 12/16/24 15:06) Medications ???Medication ???Instructions ???Recorded ???Confirmed ???Type PNV no.63-iron,carbonyl 27mg-folic 1 cap PO QDAY 10/02/24 12/16/24 History acid 800 mcg-dha 200 mg capsule ondansetron 4 mg disintegrating 4 mg PO Q6H PRN nausea and 5 12/16/24 Rx tablet vomiting #30 tabs azithromycin 250 mg tablet See Rx Instructions PO .COMPLEX #6 12/11/24 12/16/24 Rx tabs ipratropium bromide 21 mcg (0.03 2 spray intranasal BID-TID PRN 09/0212/16/24 Rx %) nasal spray postnasal drainage #30 mL PFSH Medical History Segmental and somatic dysfunction of lumbar region Segmental dysfunction of thoracic region Segmental dysfunction of lumbar region Endometriosis DIC (disseminated intravascular coagulation) Retained products of conception hemorrhage Conceived by in vitro fertilization Hypothyroid Acute postoperative anemia due to greater than expected blood loss Vaginal delivery Infertility COVID-19 Recurrent bacterial infection Low-lying placenta Raynauds syndrome Surgical History H/O dilation and curettage History of surgery Hx of wisdom tooth extraction Hx of tonsillectomy Hx of laparoscopy Family History Father Lung cancer, Onset Age: 42 Mother Lymphoma, Onset Age: 54 Thyroid disorder Social History adopted: No household members: spouse and children housing: house number of children: 1 current occupational status: employed 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 current occupational exposures/hazards: No pets and animals: Yes pets and animals: dog(s) history of recent travel: No sexually active: Yes Smoking Status: Never smoker alcohol intake: former details: not while substance use type: does not use well-balanced diet: daily or most days caffeine: No eating out: rarely or never during the past year weight has: increased > 10 lbs what type of physical activity do you participate in: walking, yoga and weight training frequency: 3-4 times per week duration: 30-45 minutes/day diego/worship: None seatbelt use: always do you feel safe at home: Yes additional social history: - Yayo, radiation therapist/oncology [facility] ADJUSTMENT Chief Complaint: mid/ low back pain Visit Number: 3 Details: Katie Robb a 34 year old female presents for adjustment and follow up on mid/ low back pain. She advises she is currently 19 weeks . She advises her mid/ low back pain and stiffness has not returned since before her previous visit. She denies numbness, tingling or radicular pain from her back. 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 She also has a 1.5 year old and is always playing with her on the floor and lifting her. Her job as a therapist is very physical which exacerbates her pain and stiffness. She states chiropractic adjustments are effective in relieving her pain and discomfort. Location: mid and low back Duration: intermittent Aggravating or associated factors: work, bending, lifting Relieving factors: chiro Pain Quality: aching and dull Exam Musc General: Yes normal gait and joint tenderness; No normal posture, muscle weakness or decreased range of motion Cervical Spine: Yes loss of normal cervical lordosis Thoracic/Lumber: No thoracic and lumbar spine normal to inspection (high r shoulder), Yes paraspinal tenderness on the right (improving) in the upper thoracic and in the mid thoracic and bilaterally in the mid lumbar and in the lower lumbar, Yes scoliosis (suspect underlying R thoracic curve unless acquired from sports), Yes thoraco-lumbar spasm on the right greater than left (trap, rhomboid) and on the left greater than right (QL) and Yes misalignment T1, T2, T6, T7, T8, L3, L4 and L5 Sacroiliac joints: on the left tender to palpation Office Procedures Procedures - Chiropractic Procedures Manipulation: Lumbar L5, Thoracic T2 and T7 and Pelvis (more content not included)... Normal [facility] Chiropractic Reporton 2024 Chiropractic Report [facility] [place] [address] [place] [address] OFFICE VISIT Date of Service: 12/11/24 MR#: [id number] Acct: [id number] Name: VANKATIE ANGELINA Rep #: [id number] : 1990 Provider: MARCE Dela Cruz Age/Sex: 34/F Location: [facility] Status: Signed Intake Vital Signs 11/25/24 15:17 12/05/24 11:44 Height 5 ft 7 in 5 ft 7 in Weight: 195 lb 4 oz BMI 30.5 BP 116/82 H Intake Visit Reasons: ADJUSTMENT Allergies No Known Allergies Allergy (Verified 12/11/24 14:56) Medications ???Medication ???Instructions ???Recorded ???Confirmed ???Type PNV no.63-iron,carbonyl 27mg-folic 1 cap PO QDAY 10/02/24 12/11/24 History acid 800 mcg-dha 200 mg capsule ondansetron 4 mg disintegrating 4 mg PO Q6H PRN nausea and 5 12/11/24 Rx tablet vomiting #30 tabs azithromycin 250 mg tablet See Rx Instructions PO .COMPLEX #6 12/11/24 12/11/24 Rx tabs ipratropium bromide 21 mcg (0.03 2 spray intranasal BID-TID PRN 09/0212/11/24 Rx %) nasal spray postnasal drainage #30 mL [facility] Medical History (Updated 12/11/24 @ 15:07 by Bharathi HILLMAN, PA) Segmental and somatic dysfunction of lumbar region Segmental dysfunction of thoracic region Segmental dysfunction of lumbar region Endometriosis DIC (disseminated intravascular coagulation) Retained products of conception hemorrhage Conceived by in vitro fertilization Hypothyroid Acute postoperative anemia due to greater than expected blood loss Vaginal delivery Infertility COVID-19 Recurrent bacterial infection Low-lying placenta Raynauds syndrome Surgical History H/O dilation and curettage History of surgery Hx of wisdom tooth extraction Hx of tonsillectomy Hx of laparoscopy Family History Father Lung cancer, Onset Age: 42 Mother Lymphoma, Onset Age: 54 Thyroid disorder Social History adopted: No household members: spouse and children housing: house number of children: 1 current occupational status: employed 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 current occupational exposures/hazards: No pets and animals: Yes pets and animals: dog(s) history of recent travel: No sexually active: Yes Smoking Status: Never smoker alcohol intake: former details: not while substance use type: does not use well-balanced diet: daily or most days caffeine: No eating out: rarely or never during the past year weight has: increased > 10 lbs what type of physical activity do you participate in: walking, yoga and weight training frequency: 3-4 times per week duration: 30-45 minutes/day diego/worship: None seatbelt use: always do you feel safe at home: Yes additional social history: - Yayo, radiation therapist/oncology [facility] ADJUSTMENT Chief Complaint: mid/ low back pain Visit Number: 2 Details: Katie Robb a 34 year old female presents to follow up on mid/ low back pain. She advises she is currently 18 weeks . She reports her mid/ low back pain and stiffness has resolved after her last adjustment. She denies numbness, tingling or radicular pain from her back. 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 She also has a 1.5 year old and is always playing with her on the floor and lifting her. Her job as a therapist is very physical which exacerbates her pain and stiffness. She states chiropractic adjustments are effective in relieving her pain and discomfort. Location: mid and low back Duration: intermittent Aggravating or associated factors: work, bending, lifting Relieving factors: chiro Pain Quality: aching and dull Exam Musc General: Yes normal gait and joint tenderness; No normal posture, muscle weakness or decreased range of motion Cervical Spine: Yes loss of normal cervical lordosis Thoracic/Lumber: No thoracic and lumbar spine normal to inspection (high r shoulder), Yes paraspinal tenderness on the right in the upper thoracic and in the mid thoracic and bilaterally in the mid lumbar and in the lower lumbar, Yes scoliosis (suspect underlying R thoracic curve unless acquired from sports), Yes thoraco-lumbar spasm on the right greater than left (trap, rhomboid) and on the left greater than right (QL) and Yes misalignment T1, T2, T6, T7, T8, L3, L4 and L5 Office Procedures Procedures - Chiropractic Procedures Manipulation: Lumbar L5 and Thoracic T2 and T7 Manipulation: 1-2 regions Patient Response: positive Assessment and Plan Assessment and Plan (1) Segmental dysfunction of lumbar region: (more content not included)... Normal [facility] Urgent Care Visit Reporton 0 12-11-2024 Urgent Care Visit Report [facility] [address], [address] [place] [address] OFFICE VISIT Date of Service: 12/11/24 MR#: [id number] Acct: [id number] Name: KATIE ROBB Rep #: [id number] : 1990 Provider: RAFY Merino Age/Sex: 34/F Location: [facility] Status: Signed Intake Vital Signs 12/05/24 11:44 12/11/24 14:56 Height 5 ft 7 in Weight: 195 lb 4 oz BMI 30.5 BP 116/82 H 108/60 Blood Pressure Location Lt brachial Position Sitting Respiration 15 Pulse 55 L Pulse Source NIBP Temp 97.5 F L Temp Source Oral Pulse Oximetry (%) 100 Oxygen Delivery Method room air Intake Visit Reasons: Cough Chief Complaint: cough, congest, drainage, ST Sole Scraper Required: No Is patient in pain?: No Allergies No Known Allergies Allergy (Verified 12/11/24 14:56) Is last menstrual period known: No Post menopausal: No Patient : Yes Have you fallen in the past year?: No Nurse's Note: cough, congest, drainage, ST x 1 week without resolve. denies fever. pt is 20 weeks --provider informed [facility] Medical History (Updated 12/11/24 @ 15:07 by Bharathi Moreno PA, PA) Segmental and somatic dysfunction of lumbar region Segmental dysfunction of thoracic region Segmental dysfunction of lumbar region Endometriosis DIC (disseminated intravascular coagulation) Retained products of conception hemorrhage Conceived by in vitro fertilization Hypothyroid Acute postoperative anemia due to greater than expected blood loss Vaginal delivery Infertility COVID-19 Recurrent bacterial infection Low-lying placenta Raynauds syndrome Surgical History H/O dilation and curettage History of surgery Hx of wisdom tooth extraction Hx of tonsillectomy Hx of laparoscopy Family History Father Lung cancer, Onset Age: 42 Mother Lymphoma, Onset Age: 54 Thyroid disorder Social History adopted: No household members: spouse and children housing: house number of children: 1 current occupational status: employed 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 current occupational exposures/hazards: No pets and animals: Yes pets and animals: dog(s) history of recent travel: No sexually active: Yes Smoking Status: Never smoker alcohol intake: former details: not while substance use type: does not use well-balanced diet: daily or most days caffeine: No eating out: rarely or never during the past year weight has: increased > 10 lbs what type of physical activity do you participate in: walking, yoga and weight training frequency: 3-4 times per week duration: 30-45 minutes/day diego/worship: None seatbelt use: always do you feel safe at home: Yes additional social history: - Yayo, radiation therapist/oncology [facility] HPI Chief Complaint: cough, congest, drainage, ST Details: KATIE ROBB, is a 34 F who presents to the office today for complaint of cough, congestion, postnasal drainage and sore throat for the past week. Patient denies fever, chills or sweats. No nausea, vomiting, diarrhea. No loss of taste or smell. No other associated symptoms or alleviating/aggravating factors. ROS Const Constitutional: No other (as above) Exam Const General: cooperative and well developed HENMT Head: normal to inspection and atraumatic Ears: hearing grossly normal bilaterally Nose: nasal discharge clear Face and sinus: normal facial exam Mouth: oral mucosae normal Throat: abnormal tonsil bilaterally hypertrophy 1+ Resp Effort Inspection: normal respiratory effort and no audible wheezes Auscultation: Bilateral: Clear to Auscultation Cardio Palpation: normal PMI Rate: regular rate Rhythm: regular rhythm Neuro General: patient alert and CN's II-XI intact bilaterally Psych Appearance: grossly normal Mental Status: mental status grossly normal Coding Level of Care Code Off vis,new,level 3 Diagnoses Acute bronchitis J20.9 Assessment and Plan Assessment and Plan (1) Acute bronchitis: Status: Acute Plan: Azithromycin and Atrovent as prescribed today. Encouraged to get plenty of rest, drink lots of clear liquids, and use Tylenol or Ibuprofen (unless contraindicated) for fever and comfort. Patient also educated on other symptomatic management techniques. To be seen in 7-10 days if no improvement; sooner if worsening of symptoms. Patient advised of potential red flags and when appropriate to report to the ED. Patient verbalized understanding and agreement with all the above. Medications: New azithromycin take 500 mg today (day 1), then 250 mg for 4 days (days 2-5) PO 6 tabs 0RF ipratr (more content not included)... Normal [facility] - Chemistry and C hemistry - challengeOrdered By: Nick Cordon on 12-05-2024 Glucose Ql (U) Negative [facility] - UrinalysisOrder ed By: Nick Cordon on 12-05-2024 Protein Ql (U) Negative [facility] Full Stack Software Developer Office Visit Reporton 12-05-2024 Full Stack Software Developer Office Visit Report [facility] [address], [address] [place] [address] OFFICE VISIT Date of Service: 12/05/24 MR#: [id number] Acct: [id number] Name: KATIE ROBB Rep #: [id number] : 1990 Provider: LIUDMILA mckee Age/Sex: 34/F Location: [facility] Status: Signed Intake Vital Signs 10/21/24 14:58 11/25/24 15:17 12/05/24 11:44 Height 5 ft 7 in 5 ft 7 in 5 ft 7 in Weight: 195 lb 4 oz BMI 30.5 BP 116/82 H Intake Visit Reasons: 16wk ob Chief Complaint: 16wk ob Sole Scraper Required: No Is patient in pain?: No Allergies No Known Allergies Allergy (Verified 12/05/24 11:42) Medications ???Medication ???Instructions ???Recorded ???Confirmed ???Type PNV no.63-iron,carbonyl 27mg-folic 1 cap PO QDAY 10/02/24 12/05/24 History acid 800 mcg-dha 200 mg capsule ondansetron 4 mg disintegrating 4 mg PO Q6H PRN nausea and 5 12/05/24 Rx tablet vomiting #30 tabs Last Menstrual Period: 05/03/22 : No PFSH PFSH Medical History Endometriosis DIC (disseminated intravascular coagulation) Retained products of conception hemorrhage Conceived by in vitro fertilization Segmental and somatic dysfunction of lumbar region Segmental dysfunction of thoracic region Segmental dysfunction of lumbar region Hypothyroid Acute postoperative anemia due to greater than expected blood loss Vaginal delivery Infertility COVID-19 Recurrent bacterial infection Low-lying placenta Raynauds syndrome Surgical History H/O dilation and curettage History of surgery Hx of wisdom tooth extraction Hx of tonsillectomy Hx of laparoscopy Family History Father Lung cancer, Onset Age: 42 Mother Lymphoma, Onset Age: 54 Thyroid disorder Social History adopted: No household members: spouse and children housing: house number of children: 1 current occupational status: employed 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 current occupational exposures/hazards: No pets and animals: Yes pets and animals: dog(s) history of recent travel: No sexually active: Yes Smoking Status: Never smoker alcohol intake: former details: not while substance use type: does not use well-balanced diet: daily or most days caffeine: No eating out: rarely or never during the past year weight has: increased > 10 lbs what type of physical activity do you participate in: walking, yoga and weight training frequency: 3-4 times per week duration: 30-45 minutes/day diego/worship: None seatbelt use: always do you feel safe at home: Yes 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 Date Name GA/Weeks Outcome Route Bth Weight Infant Gen Labor Lgth Anesthesia Del Locatn Provider FOB 02/02/23 Angel[facility] 39 live - full term 9lbs Female [facility] Yayo HPI 16wk ob Details: KATIE ROBB is a 34 year old who presents for routine OB visit. OB Visit TETO Calculator Estimated Delivery Date Method Current WG Current Estimate 05/13/25 Conception 17w 2d Other Estimates 05/20/25 Ultrasound #1 16w 2d Expected Delivery Route/Plan Labor Preferences- CB/BF classes: [] labor support person: [] labor intervention preferences: [] pain management options preferred: [] cut cord/dad catch: [] : [] PP control planned: [] discussed possible routes of delivery and associated risks: [] special requests: [] Specific Issue/Plans Covid status: [] Flu vaccine: [] Tdap vaccine: [] Rhogam: [] LARC form signed: [] Problem list reviewed and updated with the most current plan of care details and appropriate orders placed. Relevant counseling for the gestational age provided. Continue routine care and follow up unless otherwise noted in visit notes/problem list details Initial Weight: 193 lb Date -???-???-???-???-???-??? -???-???-???-???-???-??? - EGA Weight BP Urine Prot -???-???-???-???-???-??? -???-???-???-???-???-??? - Glucose FHR FuHt Pres Dilation -???-???-???-???-???-??? -???-???-???-???-???-??? - Effaced St Visit Note 10/07/24 -???-???-???-???-???-??? -???-???-???-???-???-??? - 8w 6d 193 lb 8 oz (+8 oz) 121/84 -???-???-???-???-???-??? -???-???-???-???-???-??? - 173 -???-???-???-???-???-??? -???-???-???-???-???-??? - KW- CRL cons (more content not included)... Normal [facility] - Chemistry and C hemistry - challengeOrdered By: Niya Armstrong on 11-04-2024 Glucose Ql (U) Negative [facility] - UrinalysisOrder ed By: Niya Armstrong on 11-04-2024 Protein Ql (U) Negative [facility] Full Stack Software Developer Office Visit Reporton 11-04-2024 Full Stack Software Developer Office Visit Report [facility] [address], [facility] [address] [place] [address] OFFICE VISIT Date of Service: 11/04/24 MR#: [id number] Acct: [id number] Name: KATIE ROBB Rep #: [id number] : 1990 Provider: LIUDMILA Landers [facility] Age/Sex: 34/F Location: [facility] Status: Signed Intake Vital Signs 10/21/24 14:58 11/04/24 15:20 Height 5 ft 7 in 5 ft 7 in Weight: 196 lb 4 oz BMI 30.7 BP 117/81 H Intake Visit Reasons: 12wk ob Chief Complaint: 12wk OB Sole Scraper Required: No Is patient in pain?: No Allergies No Known Allergies Allergy (Verified 11/04/24 15:18) Medications ???Medication ???Instructions ???Recorded ???Confirmed ???Type PNV no.63-iron,carbonyl 27mg-folic 1 cap PO QDAY 10/02/24 11/04/24 History acid 800 mcg-dha 200 mg capsule ondansetron 4 mg disintegrating 4 mg PO Q6H PRN nausea and 5 11/04/24 Rx tablet vomiting #30 tabs Last Menstrual Period: 05/03/22 : No Have you fallen in the past year?: No PFSH PFSH Medical History Endometriosis DIC (disseminated intravascular coagulation) Retained products of conception hemorrhage Conceived by in vitro fertilization Segmental and somatic dysfunction of lumbar region Segmental dysfunction of thoracic region Segmental dysfunction of lumbar region Hypothyroid Acute postoperative anemia due to greater than expected blood loss Vaginal delivery Infertility COVID-19 Recurrent bacterial infection Low-lying placenta Raynauds syndrome Surgical History H/O dilation and curettage History of surgery Hx of wisdom tooth extraction Hx of tonsillectomy Hx of laparoscopy Family History Father Lung cancer, Onset Age: 42 Mother Lymphoma, Onset Age: 54 Thyroid disorder Social History adopted: No household members: spouse and children housing: house number of children: 1 current occupational status: employed 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 current occupational exposures/hazards: No pets and animals: Yes pets and animals: dog(s) history of recent travel: No sexually active: Yes Smoking Status: Never smoker alcohol intake: former details: not while substance use type: does not use well-balanced diet: daily or most days caffeine: No eating out: rarely or never during the past year weight has: increased > 10 lbs what type of physical activity do you participate in: walking, yoga and weight training frequency: 3-4 times per week duration: 30-45 minutes/day diego/worship: None seatbelt use: always do you feel safe at home: Yes 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 Date Name GA/Weeks Outcome Route Bth Weight Infant Gen Labor Lgth Anesthesia Del Locatn Provider FOB 02/02/23 Angelito 39 live - full term 9lbs Female [facility] K. Wi cici Zee HPI 12wk ob Details: KATIE ROBB is a 34 year old who presents for routine OB visit. OB Visit TETO Calculator Estimated Delivery Date Method Current WG Current Estimate 05/13/25 Conception 12w 6d Other Estimates 05/20/25 Ultrasound #1 11w 6d Expected Delivery Route/Plan Labor Preferences- CB/BF classes: [] labor support person: [] labor intervention preferences: [] pain management options preferred: [] cut cord/dad catch: [] : [] PP control planned: [] discussed possible routes of delivery and associated risks: [] special requests: [] Specific Issue/Plans Covid status: [] Flu vaccine: [] Tdap vaccine: [] Rhogam: [] LARC form signed: [] Problem list reviewed and updated with the most current plan of care details and appropriate orders placed. Relevant counseling for the gestational age provided. Continue routine care and follow up unless otherwise noted in visit notes/problem list details Initial Weight: 193 lb Date -???-???-???-???-???-??? -???-???-???-???-???-??? - EGA Weight BP Urine Prot -???-???-???-???-???-??? -???-???-???-???-???-??? - Glucose FHR FuHt Pres Dilation -???-???-???-???-???-??? -???-???-???-???-???-??? - Effaced St Visit Note 10/07/24 -???-???-???-???-???-??? -???-???-???-???-???-??? - 8w 6d 193 lb 8 oz (+8 oz) 121/84 -???-???-???-???-???-??? -???-???-???-???-???-??? - 173 -???-???-???-???-???-??? -???-???-???-???-???-??? - (more content not included)... Normal [facility] L3890.6102on 10-22-2024 HEP B Surf Ag Non-Reactive Normal Nonreactive [facility] Comment on above: Result Comment: Reac tive: Presumptive evidence of HBV. Repeatedly reactive samples must be confirmed using a neutralization test (Elecsys HBsAg Confirmatory Test) Non-Reactive: HBsAg not detected; does not exclude the possibility of exposure to HBV Performed By: #### L 3890.6102, BTS, L509.8002, L3890.6006, L100.0100, L3890.6301, L900.0098, L509.4006 #### [facility] [place], [address] Absolute lymphocyte countOrd ered By: Nat Rosalinda on 10-21-2024 Lymphocytes Auto (Unsp spec) [#/Vol] 2.02 10*3/uL 0.83-4.51 [facility] Absolute neutrophil countOrd ered By: Nat Acoralia on 10-21-2024 Neutrophils (Bld) [#/Vol] 7.0 10*3/uL 2.0-7.7 [facility] Automated lymphocyte count a s percentage of total leukocytesOrdered By: Nat Rosalinda on 10-21-2024 Lymphocytes/100 WBC Auto (Unsp spec) 19.2 % 19-41 [facility] Basophil percentageOrdered B y: Nat Rosalinda on 10-21-2024 Basophils/100 WBC (Bld) 0.5 % 0-1 [facility] CBC W/Diff, Automatedon 10-09 Absolute Lymph 2.02 X10 3/uL Normal 0.83-4.51 [facility] Comment on above: Performed By: #### L 3890.6102, BTS, L509.8002, L3890.6006, L100.0100, L3890.6301, L900.0098, L509.4006 #### [facility] [address] [place], [address] Absolute Neut 7.0 X10 3/uL Normal 2.0-7.7 [facility] Comment on above: Performed By: #### L 3890.6102, BTS, L509.8002, L3890.6006, L100.0100, L3890.6301, L900.0098, L509.4006 #### [facility] [address] [place], [address] Basophils/100 WBC (Bld) 0.5 % Normal 0-1 [facility] Comment on above: Performed By: #### L 3890.6102, BTS, L509.8002, L3890.6006, L100.0100, L3890.6301, L900.0098, L509.4006 #### [facility] [address] [place], [address] Eosinophils/100 WBC (Bld) 6.3 % High 0-5 [facility] Comment on above: Performed By: #### L 3890.6102, BTS, L509.8002, L3890.6006, L100.0100, L3890.6301, L900.0098, L509.4006 #### [facility] [address] [place], [address] Erythrocyte distribution width (RBC) [Ratio] 13.2 % Normal 11.6-14.6 [facility] Comment on above: Performed By: #### L 3890.6102, BTS, L509.8002, L3890.6006, L100.0100, L3890.6301, L900.0098, L509.4006 #### [facility] [address] [place], [address] Hematocrit (Bld) [Volume fraction] 38.1 % Normal 37-47 [facility] Comment on above: Performed By: #### L 3890.6102, BTS, L509.8002, L3890.6006, L100.0100, L3890.6301, L900.0098, L509.4006 #### [facility] [address] [place], [address] Hemoglobin (Bld) [Mass/Vol] 14.1 g/dL Normal 12.0-15.0 [facility] Comment on above: Performed By: #### L 3890.6102, BTS, L509.8002, L3890.6006, L100.0100, L3890.6301, L900.0098, L509.4006 #### [facility] [address] [place], [address] IG% 0.700 Normal 0.0-0.9 [facility] Comment on above: Result Comment: IG% - Immature Granulocytes (promyelocytes, myelocytes and metamyelocytes) > 1% indicates that a LEFT SHIFT is Present. Performed By: #### L 3890.6102, BTS, L509.8002, L3890.6006, L100.0100, L3890.6301, L900.0098, L509.4006 #### [facility] [address] [place], [address] Lymphocytes/100 WBC (Bld) 19.2 % Normal 19-41 [facility] Comment on above: Performed By: #### L 3890.6102, BTS, L509.8002, L3890.6006, L100.0100, L3890.6301, L900.0098, L509.4006 #### [facility] [address] [place], [address] MCH (RBC) [Entitic mass] 32.8 pg High 27.0-32.0 [facility] Comment on above: Performed By: #### L 3890.6102, BTS, L509.8002, L3890.6006, L100.0100, L3890.6301, L900.0098, L509.4006 #### [facility] [address] [place], [address] MCHC (RBC) [Mass/Vol] 37.0 g/dL High 32-36 [facility] Comment on above: Performed By: #### L 3890.6102, BTS, L509.8002, L3890.6006, L100.0100, L3890.6301, L900.0098, L509.4006 #### [facility] [address] [place], [address] MCV (RBC) [Entitic vol] 88.6 fL Normal 81-99 [facility] Comment on above: Performed By: #### L 3890.6102, BTS, L509.8002, L3890.6006, L100.0100, L3890.6301, L900.0098, L509.4006 #### [facility] [address] [place], [address] Monocytes/100 WBC (Bld) 7.4 % Normal 0-10 [facility] Comment on above: Performed By: #### L 3890.6102, BTS, L509.8002, L3890.6006, L100.0100, L3890.6301, L900.0098, L509.4006 #### [facility] [address] [place], [address] Neutrophils/100 WBC (Bld) 65.9 % Normal 47-70 [facility] Comment on above: Performed By: #### L 3890.6102, BTS, L509.8002, L3890.6006, L100.0100, L3890.6301, L900.0098, L509.4006 #### [facility] [address] [place], [address] Nucleated RBC (Bld) [#/Vol] 0 10*3/uL Normal 0-5 [facility] Comment on above: Performed By: #### L 3890.6102, BTS, L509.8002, L3890.6006, L100.0100, L3890.6301, L900.0098, L509.4006 #### [facility] [address] [place], [address] Platelet mean volume (Bld) [Entitic vol] 11.8 fL Normal 6.2-12.0 [facility] Comment on above: Performed By: #### L 3890.6102, BTS, L509.8002, L3890.6006, L100.0100, L3890.6301, L900.0098, L509.4006 #### [facility] [address] [place], [address] Platelets (Bld) [#/Vol] 216 10*3/uL Normal 150-450 [facility] Comment on above: Performed By: #### L 3890.6102, BTS, L509.8002, L3890.6006, L100.0100, L3890.6301, L900.0098, L509.4006 #### [facility] [address] [place], [address] RBC (Bld) [#/Vol] 4.30 10*6/uL Normal 4.2-5.4 [facility] Comment on above: Performed By: #### L 3890.6102, BTS, L509.8002, L3890.6006, L100.0100, L3890.6301, L900.0098, L509.4006 #### [facility] [address] [place], [address] RDW SD 42.6 fl Normal 35.1-43.9 [facility] Comment on above: Performed By: #### L 3890.6102, BTS, L509.8002, L3890.6006, L100.0100, L3890.6301, L900.0098, L509.4006 #### [facility] [address] [place], [place], [address] WBC (Bld) [#/Vol] 10.5 10*3/uL Normal 4.4-11.0 [facility] Comment on above: Performed By: #### L 3890.6102, BTS, L509.8002, L3890.6006, L100.0100, L3890.6301, L900.0098, L509.4006 #### [facility] [address] [place], [place], [id number] Eosinophil percentageOrdered By: Nat Gomez on 10-21-2024 Eosinophils/100 WBC (Bld) 6.3 % High 0-5 [facility] Erythrocyte distribution wid th ratioOrdered By: Nat Gomez on 10-21-2024 Erythrocyte distribution width (RBC) [Ratio] 13.2 % 11.6-14.6 [facility] Erythrocyte distribution wid th standard deviationOrdered By: Nat Gomez on 10-21-2024 Erythrocyte distribution width (RBC) [Ratio] 42.6 fl 35.1-43.9 [facility] HIVon 10-21-2024 HIV Non-Reactive Normal Nonreactive [facility] Comment on above: Result Comment: Non- Reactive Reactive Repeatedly reactive samples must be confirmed according to CDC recommended confirmatory algorithms. The subresults for either HIVAG or AHIV can be used as an aid in the selection of the confirmation algorithm for reactive samples. Send out specimens with Reactive results to [facility] for confirmation. Order the HIV antibody detection and differentiation: lc#[id number] Performed By: #### L 3890.6102, BTS, L509.8002, L3890.6006, L100.0100, L3890.6301, L900.0098, L509.4006 #### [facility] [address] [place], [address] Hematocrit Auto (Bld) [Volum e fraction]Ordered By: Nat Gomez on 10-21-2024 Hematocrit (Bld) [Volume fraction] 38.1 % 37-47 [facility] Hemoglobin measurementOrdere d By: Nat Gomez on 10-21-2024 Hemoglobin (Bld) [Mass/Vol] 14.1 g/dL 12.0-15.0 [facility] Hepatitis C Antibodyon 10-21 Hepatitis C Ab Non-Reactive Normal Nonreactive [facility] Comment on above: Result Comment: Reac tive: Presumptive evidence of antibodies to HCV. Follow CDC recommendations for supplemental testing. Non-Reactive: Antibodies to HCV were not detected; does not exclude the possibility of exposure to HCV Reactive Results are presumptive evidence of antibodies to HCV. Follow CDC recommendations for supplemental testing. Order confirmation testing: HCV Quant by PCR testing - HCVPCR #[id number] Non Reactive: < 0.8 Equivocal: >/= 0.8 to < 1.0 Reactive: >/= 1.0 The CDC requires that a reactive/equivocal HCV antibody result be sent out for confirmation. HCV Quant by PCR testing. Performed By: #### L 3890.6102, BTS, L509.8002, L3890.6006, L100.0100, L3890.6301, L900.0098, L509.4006 #### [facility] [address] [place], [address] Immature granulocytes/100 WB C Auto (Bld)Ordered By: Nat Gomez on 10-21-2024 Immature granulocytes/100 WBC (Bld) 0.700 % 0.0-0.9 [facility] Comment on above: IG% - Immature Granu locytes (promyelocytes, myelocytes and metamyelocytes) > 1% indicates that a LEFT SHIFT is Present. L509.4006on 10-21-2024 Rubella IgG REAC Normal Nonreactive [facility] Comment on above: Result Comment: Anti body Result: Interpretation Non-Reactive: Non-Immune Reactive: Immune The following results were obtained with the Elecsys Rubella IgG assay. Results from assays of other manufacturers cannot be used interchangeably. Performed By: #### L 3890.6102, BTS, L509.8002, L3890.6006, L100.0100, L3890.6301, L900.0098, L509.4006 #### [facility] [address] [place], [address] Laboratory - Chemistry and C hemistry - challengeOrdered By: Nat Gomez on 10-21-2024 Glucose Ql (U) Negative [facility] Laboratory - Microbiology an d Antimicrobial susceptibilityOrdered By: Nat Gomez on 10-21-2024 HBV surface Ag Ql (S) Non-Reactive Nonreactive [facility] Comment on above: Reactive: Presumptiv e evidence of HBV. Repeatedly reactive samples must be confirmed using a neutralization test (Elecsys HBsAg Confirmatory Test)Non-Reactive: HBsAg not detected; does not exclude the possibility of exposure to HBV Laboratory - UrinalysisOrder ed By: Nat Gomez on 10-21-2024 Protein Ql (U) Negative [facility] MCV (mean corpuscular volume ) determinationOrdered By: Nat Gomez on 10-21-2024 MCV (RBC) [Entitic vol] 88.6 fL 81-99 [facility] Mean corpuscular hemoglobin (MCH) determinationOrdered By: Nat Gomez on 10-21-2024 MCH (RBC) [Entitic mass] 32.8 pg High 27.0-32.0 [facility] Mean corpuscular hemoglobin concentration (MCHC) determinationOrdered By: Nat Gomez on 10-21-2024 MCHC (RBC) [Mass/Vol] 37.0 g/dL High 32-36 [facility] Mean platelet volume determi nationOrdered By: Nat Gomez on 10-21-2024 Platelet mean volume (Bld) [Entitic vol] 11.8 fL 6.2-12.0 [facility] Monocyte percentageOrdered B y: Nat Gomez on 10-21-2024 Monocytes/100 WBC (Bld) 7.4 % 0-10 [facility] NATERAon 10-21-2024 NATURA SEE SCANNED REPORT Normal [facility] Comment on above: Performed By: #### L 3890.6102, BTS, L509.8002, L3890.6006, L100.0100, L3890.6301, L900.0098, L509.4006 #### [facility] [address] [place], [address] Neutrophil percentageOrdered By: Nat Gomez on 10-21-2024 Neutrophils/100 WBC (Bld) 65.9 % 47-70 [facility] No Panel InformationOrdered By: Nat Gomez on 10-21-2024 HIV (1&2) Antibody Non-Reactive Nonreactive [facility] Comment on above: Non-ReactiveReactive Repeatedly reactive samples must be confirmed according to CDC recommended confirmatory algorithms. The subresults for either HIVAG or AHIV can be used as an aid in the selection of the confirmation algorithm for reactive samples.Send out specimens with Reactive results to [facility] for confirmation.Order the HIV antibody detection and differentiation: #[id number] Nucleated red blood cell per centageOrdered By: Nat Gomez on 10-21-2024 Nucleated RBC/100 WBC (Bld) [Ratio] 0 % 0-5 [facility] Full Stack Software Developer Office Visit Reporton 10-21-2024 Full Stack Software Developer Office Visit Report [facility] [address], [address] [place] [address] OFFICE VISIT Date of Service: 10/21/24 MR#: [id number] Acct: [id number] Name: KATIE ROBB Rep #: [id number] : 1990 Provider: Dr. Nat stanford MD Age/Sex: 34/F Location: [facility] Status: Signed Intake Vital Signs 10/07/24 14:44 10/21/24 14:54 10/21/24 14:58 Height 5 ft 7 in 5 ft 7 in 5 ft 7 in Weight: 195 lb 2 oz BMI 30.5 BP 115/79 Intake Visit Reasons: 10 WK OB Sole Scraper Required: No Is patient in pain?: No Feel stressed/tense/nervous/a nxious/difficulty sleeping: not at all Allergies No Known Allergies Allergy (Verified 10/21/24 14:54) Medications ???Medication ???Instructions ???Recorded ???Confirmed ???Type PNV no.63-iron,carbonyl 27mg-folic 1 cap PO QDAY 10/02/24 10/21/24 History acid 800 mcg-dha 200 mg capsule Last Menstrual Period: 05/03/22 Zika: Zika virus screening: Negative : No PFSH PFSH Medical History (Updated 10/21/24 @ 15:[address] Nat Gomez MD) Endometriosis DIC (disseminated intravascular coagulation) Retained products of conception hemorrhage Conceived by in vitro fertilization Segmental and somatic dysfunction of lumbar region Segmental dysfunction of thoracic region Segmental dysfunction of lumbar region Hypothyroid Acute postoperative anemia due to greater than expected blood loss Vaginal delivery Infertility COVID-19 Recurrent bacterial infection Low-lying placenta Raynauds syndrome Surgical History H/O dilation and curettage History of surgery Hx of wisdom tooth extraction Hx of tonsillectomy Hx of laparoscopy Family History Father Lung cancer, Onset Age: 42 Mother Lymphoma, Onset Age: 54 Thyroid disorder Social History adopted: No household members: spouse and children housing: house number of children: 1 current occupational status: employed 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 current occupational exposures/hazards: No pets and animals: Yes pets and animals: dog(s) history of recent travel: No sexually active: Yes Smoking Status: Never smoker alcohol intake: former details: not while substance use type: does not use well-balanced diet: daily or most days caffeine: No eating out: rarely or never during the past year weight has: increased > 10 lbs what type of physical activity do you participate in: walking, yoga and weight training frequency: 3-4 times per week duration: 30-45 minutes/day diego/worship: None seatbelt use: always do you feel safe at home: Yes 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 Date Name GA/Weeks Outcome Route Bth Weight Infant Gen Labor Lgth Anesthesia Del Locatn Provider FOB 02/02/23 Angelito 39 live - full term 9lbs Female [facility] K. Wi icci Zee HPI 10 WK OB Details: KATIE ROBB is a 34 year old who presents for routine OB visit. OB Visit TETO Calculator Estimated Delivery Date Method Current WG Current Estimate 05/13/25 Conception 10w 6d Other Estimates 05/20/25 Ultrasound #1 9w 6d Expected Delivery Route/Plan Labor Preferences- CB/BF classes: [] labor support person: [] labor intervention preferences: [] pain management options preferred: [] cut cord/dad catch: [] : [] PP control planned: [] discussed possible routes of delivery and associated risks: [] special requests: [] Specific Issue/Plans Covid status: [] Flu vaccine: [] Tdap vaccine: [] Rhogam: [] LARC form signed: [] Problem list reviewed and updated with the most current plan of care details and appropriate orders placed. Relevant counseling for the gestational age provided. Continue routine care and follow up unless otherwise noted in visit notes/problem list details Initial Weight: 193 lb Date -???-???-???-???-???-??? -???-???-???-???-???-??? - EGA Weight BP Urine Prot -???-???-???-???-???-??? -???-???-???-???-???-??? - Glucose FHR FuHt Pres Dilation -???-???-???-???-???-??? -???-???-???-???-???-??? - Effaced St Visit Note 10/07/24 -???-???-???-???-???-??? -???-???-???-???-???-??? - 8w 6d 193 lb 8 oz (+8 oz) 121/84 -???-???-???-???-???-??? -???-???-???-???-???-??? - 173 -???-???-???-???-???-??? -???-???-???-???-???-??? - KW- CRL cons wi (more content not included)... Normal [facility] Platelet countOrdered By: Kristopher Gomez on 10-21-2024 Platelets (Bld) [#/Vol] 216 10*3/uL 150-450 [facility] RBC Auto (Bld) [#/Vol]Ordere d By: Nat Gomez on 10-21-2024 RBC (Bld) [#/Vol] 4.30 10*6/uL 4.2-5.4 [facility] Syphilis Antibodieson 2024 Syphilis Abs Non-Reactive Normal Nonreactive [facility] Comment on above: Performed By: #### L 3890.6102, BTS, L509.8002, L3890.6006, L100.0100, L3890.6301, L900.0098, L509.4006 #### [facility] [address] [place], [place], [id number] Type AND Screenon 10-21-2024 Ab SCREEN GEL Negative Normal [facility] Comment on above: Order Comment: PN Performed By: #### L 3890.6102, BTS, L509.8002, L3890.6006, L100.0100, L3890.6301, L900.0098, L509.4006 #### [facility] [address] [place], [place], [id number] White blood cell (WBC) count Ordered By: Nat Gomez on 10-21-2024 WBC (Bld) [#/Vol] 10.5 10*3/uL 4.4-11.0 [facility] Chlamydia/GC KEELEY aptimaon CHLAMY,NUC ACID Negative Normal Negative [facility] Comment on above: Performed By: #### L 3890.6102, BTS, L509.8002, L3890.6006, L100.0100, L3890.6301, L900.0098, L509.4006 #### [facility] [address] [place], [address] GC BY NUC ACID Negative Normal Negative [facility] Comment on above: Result Comment: Perf ormed at: =G - [facility] [id number] Cafeteria Operator: Mayra Kaba MD, Phone: [phone] Performed By: #### L 3890.6102, BTS, L509.8002, L3890.6006, L100.0100, L3890.6301, L900.0098, L509.4006 #### [facility] [address] [place], [address] Urine Cultureon 10-08-2024 URC Culture exhibits no growth. Normal [facility] Comment on above: Performed By: #### L 3890.6102, BTS, L509.8002, L3890.6006, L100.0100, L3890.6301, L900.0098, L509.4006 #### [facility] [address] [place], [address] Chlamydia trachomatis rRNA d etection by probe and target amplification methodOrdered By: Niya Armstrong on 10-07-2024 C. trachomatis rRNA KEELEY+probe Ql (Unsp spec) Negative Negative [facility] Neisseria gonorrhoeae nuclei c acid detection by amplified probe techniqueOrdered By: Niya Armstrong on 10-07-2024 N. gonorrhoeae DNA KEELEY+probe Ql (Unsp spec) Negative Negative [facility] Comment on above: Performed at: =G - [facility] [address] [id number] Director: Mayra Kaba MD, Phone: [phone] Full Stack Software Developer Office Visit Reporton 10-07-2024 Full Stack Software Developer Office Visit Report [facility] [address], [address] [place] [address] OFFICE VISIT Date of Service: 10/07/24 MR#: [id number] Acct: [id number] Name: KATIE ROBB Rep #: [id number] : 1990 Provider: LIUDMILA Landers ams Age/Sex: 34/F Location: [facility] [place] Status: Signed Intake Vital Signs 07/22/24 15:10 10/07/24 14:44 Height 5 ft 7 in 5 ft 7 in Weight: 193 lb 8 oz BMI 30.3 BP 121/84 H Intake Visit Reasons: NOB 8WK IVF TETO 05/13 Chief Complaint: New OB Sole Scraper Required: No Is patient in pain?: No Allergies No Known Allergies Allergy (Verified 10/07/24 14:43) Medications ???Medication ???Instructions ???Recorded ???Confirmed ???Type PNV no.63-iron,carbonyl 27mg-folic 1 cap PO QDAY 10/02/24 10/06/24 History acid 800 mcg-dha 200 mg capsule conjugated estrogens 25 mg 20 mg IM .q3days 10/07/24 10/07/24 History solution for injection progesterone 50 mg/mL 75 mg IM QDAY 10/07/24 10/07/24 Hi story intramuscular oil Last Menstrual Period: 05/03/22 : No PFSH PFSH Medical History Endometriosis DIC (disseminated intravascular coagulation) Retained products of conception hemorrhage Conceived by in vitro fertilization Segmental and somatic dysfunction of lumbar region Segmental dysfunction of thoracic region Segmental dysfunction of lumbar region Hypothyroid Acute postoperative anemia due to greater than expected blood loss Vaginal delivery Infertility COVID-19 Recurrent bacterial infection Low-lying placenta Raynauds syndrome Surgical History H/O dilation and curettage History of surgery Hx of wisdom tooth extraction Hx of tonsillectomy Hx of laparoscopy Family History Father Lung cancer, Onset Age: 42 Mother Lymphoma, Onset Age: 54 Thyroid disorder Social History adopted: No household members: spouse and children housing: house number of children: 1 service: No current occupational status: employed 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 current occupational exposures/hazards: No pets and animals: Yes pets and animals: dog(s) history of recent travel: No sexually active: Yes Smoking Status: Never smoker alcohol intake: former details: not while substance use type: does not use well-balanced diet: daily or most days caffeine: No eating out: rarely or never during the past year weight has: increased > 10 lbs what type of physical activity do you participate in: walking, yoga and weight training frequency: 3-4 times per week duration: 30-45 minutes/day diego/worship: None seatbelt use: always do you feel safe at home: Yes 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 Date Name GA/Weeks Outcome Route Bth Weight Gen Labor Lgth Anesthesia Del Locatn Provider FOB 02/02/23 Angelito 39 live - full term 9lbs Female [facility] K. Wi cici Zee HPI NOB 8WK IVF TETO 05/13 Details: KATIE ROBB is a 34 year old who presents for New OB visit. OB Visit TETO Calculator Estimated Delivery Date Method Current WG Current Estimate 05/13/25 Conception 8w 6d Other Estimates 05/20/25 Ultrasound #1 7w 6d Comments: HIV: Urine Culture: Sequential Screen: NIPT Screen: Estimated Due Date: 05/13/23 Expected Delivery Route/Plan Labor Preferences- CB/BF classes: [] labor support person: [] labor intervention preferences: [] pain management options preferred: [] cut cord/dad catch: [] : [] PP control planned: [] discussed possible routes of delivery and associated risks: [] special requests: [] Specific Issue/Plans Covid status: [] Flu vaccine: [] Tdap vaccine: [] Rhogam: [] LARC form signed: [] Problem list reviewed and updated with the most current plan of care details and appropriate orders placed. Relevant counseling for the gestational age provided. Continue routine care and follow up unless otherwise noted in visit notes/problem list details Initial Weight: 193 lb Date -???-???-???-???-???-??? -???-???-???-???-???-??? - EGA Weight BP Urine Prot -???-???-???-???-???-??? -???-???-???-???-???-??? - Glucose FHR FuHt Pres Dilation -???-???-???-???-???-??? -???-???-???-???-???-??? - Effaced St Visit Note 10/07/24 -???-???-???-? (more content not included)... Normal [facility] Urine cultureOrdered By: Joseph Armstrong on 10-07-2024 Bacteria identified Cx Nom (U) Culture exhibits no growth. [facility] Comprehensive Metabolic Prof ilon 10-06-2024 Albumin [Mass/Vol] 4.3 g/dL Normal 3.5-5.0 [facility] Comment on above: Performed By: #### L 3890.6102, BTS, L509.8002, L3890.6006, L100.0100, L3890.6301, L900.0098, L509.4006 #### [facility] [address] [place], [address] Albumin/Globulin [Mass ratio] 1.7 {ratio} Normal 0.9-2.4 [facility] Comment on above: Performed By: #### L 3890.6102, BTS, L509.8002, L3890.6006, L100.0100, L3890.6301, L900.0098, L509.4006 #### [facility] [address] [place], [address] ALK PHOS 67 U/L Normal 35-104 [facility] Comment on above: Performed By: #### L 3890.6102, BTS, L509.8002, L3890.6006, L100.0100, L3890.6301, L900.0098, L509.4006 #### [facility] [address] [place], [address] ALT [Catalytic activity/Vol] 11 U/L Normal <=34 [facility] Comment on above: Performed By: #### L 3890.6102, BTS, L509.8002, L3890.6006, L100.0100, L3890.6301, L900.0098, L509.4006 #### [facility] [address] [place], [address] AST [Catalytic activity/Vol] 19 U/L Normal <=31 [facility] Comment on above: Performed By: #### L 3890.6102, BTS, L509.8002, L3890.6006, L100.0100, L3890.6301, L900.0098, L509.4006 #### [facility] [address] [place], [address] Bilirubin [Mass/Vol] 0.44 mg/dL Normal 0.00-1.30 [facility] Comment on above: Performed By: #### L 3890.6102, BTS, L509.8002, L3890.6006, L100.0100, L3890.6301, L900.0098, L509.4006 #### [facility] [address] [place], [address] BUN/CRE 16.5 RATIO Normal 10-20 [facility] Comment on above: Performed By: #### L 3890.6102, BTS, L509.8002, L3890.6006, L100.0100, L3890.6301, L900.0098, L509.4006 #### [facility] [address] [place], [address] Calcium [Mass/Vol] 9.2 mg/dL Normal 7.6-11.0 [facility] Comment on above: Performed By: #### L 3890.6102, BTS, L509.8002, L3890.6006, L100.0100, L3890.6301, L900.0098, L509.4006 #### [facility] [address] [place], [address] Chloride [Moles/Vol] 104 mmol/L Normal 98-108 [facility] Comment on above: Performed By: #### L 3890.6102, BTS, L509.8002, L3890.6006, L100.0100, L3890.6301, L900.0098, L509.4006 #### [facility] [address] [place], [address] CO2 [Moles/Vol] 20.5 mmol/L Low 21.0-32.0 [facility] Comment on above: Performed By: #### L 3890.6102, BTS, L509.8002, L3890.6006, L100.0100, L3890.6301, L900.0098, L509.4006 #### [facility] [address] [place], [address] Creatinine [Mass/Vol] 0.96 mg/dL Normal 0.70-1.20 [facility] Comment on above: Performed By: #### L 3890.6102, BTS, L509.8002, L3890.6006, L100.0100, L3890.6301, L900.0098, L509.4006 #### [facility] [address] [place], [address] ECRCL 95.78 ml/min Normal 50-250 [facility] Comment on above: Performed By: #### L 3890.6102, BTS, L509.8002, L3890.6006, L100.0100, L3890.6301, L900.0098, L509.4006 #### [facility] [address] [place], [address] GAP 12 Normal 5-15 [facility] Comment on above: Performed By: #### L 3890.6102, BTS, L509.8002, L3890.6006, L100.0100, L3890.6301, L900.0098, L509.4006 #### [facility] [address] [place], [address] GFR/1.73 sq M.predicted among non-blacks MDRD (S/P/Bld) [Vol rate/Area] 81 mL/min/{1.73_m2} Normal >60 [facility] Comment on above: Result Comment: mL/m in/1.73m2 CKD-EPI Creatinine Equation (2020) Performed By: #### L 3890.6102, BTS, L509.8002, L3890.6006, L100.0100, L3890.6301, L900.0098, L509.4006 #### [facility] [address] [place], [address] Globulin (S) [Mass/Vol] 2.5 g/dL Normal 2.2-4.2 [facility] Comment on above: Performed By: #### L 3890.6102, BTS, L509.8002, L3890.6006, L100.0100, L3890.6301, L900.0098, L509.4006 #### [facility] [address] [place], [address] Glucose [Mass/Vol] 109 mg/dL High 70-99 [facility] Comment on above: Performed By: #### L 3890.6102, BTS, L509.8002, L3890.6006, L100.0100, L3890.6301, L900.0098, L509.4006 #### [facility] [address] [place], [address] Potassium [Moles/Vol] 3.9 mmol/L Normal 3.3-5.1 [facility] Comment on above: Performed By: #### L 3890.6102, BTS, L509.8002, L3890.6006, L100.0100, L3890.6301, L900.0098, L509.4006 #### [facility] [address] [place], [address] Sodium [Moles/Vol] 137 mmol/L Normal 133-145 [facility] Comment on above: Performed By: #### L 3890.6102, BTS, L509.8002, L3890.6006, L100.0100, L3890.6301, L900.0098, L509.4006 #### [facility] [address] [place], [address] T PROT 6.8 g/dL Normal 5.9-8.4 [facility] Comment on above: Performed By: #### L 3890.6102, BTS, L509.8002, L3890.6006, L100.0100, L3890.6301, L900.0098, L509.4006 #### [facility] [address] [place], [address] Urea nitrogen [Mass/Vol] 16 mg/dL Normal 4-19 [facility] Comment on above: Performed By: #### L 3890.6102, BTS, L509.8002, L3890.6006, L100.0100, L3890.6301, L900.0098, L509.4006 #### [facility] [address] [place], [place], [address] Absolute lymphocyte countOrd ered By: Nikko Guerrero on 10-05-2024 Lymphocytes Auto (Unsp spec) [#/Vol] 3.23 10*3/uL 0.83-4.51 [facility] Absolute neutrophil countOrd ered By: Nikko Guerrero on 10-05-2024 Neutrophils (Bld) [#/Vol] 8.0 10*3/uL High 2.0-7.7 [facility] Anion gap in Serum or Plasma Ordered By: Nikko Guerrero on 10-05-2024 Anion gap [Moles/Vol] 12 mmol/L 5-15 [facility] Automated lymphocyte count a s percentage of total leukocytesOrdered By: Nikko Guerrero on 10-05-2024 Lymphocytes/100 WBC Auto (Unsp spec) 23.5 % 19-41 [facility] BUN/creatinine ratioOrdered By: Nikko Guerrero on 10-05-2024 Urea nitrogen/Creatinine [Mass ratio] 16.5 mg/mg 10-20 [facility] Basophil percentageOrdered B y: Nikko Guerrero on 10-05-2024 Basophils/100 WBC (Bld) 0.6 % 0-1 [facility] Bilirubin, totalOrdered By: Nikko Guerrero on 10-05-2024 Bilirubin [Mass/Vol] 0.44 mg/dL 0.00-1.30 [facility] CBC W/Diff, Automatedon - REACTIVE LYMPH 2+ Normal [facility] Comment on above: Performed By: #### L 3890.6102, BTS, L509.8002, L3890.6006, L100.0100, L3890.6301, L900.0098, L509.4006 #### [facility] [address] [place], [place], [id number] Carbon dioxide, total [Moles /volume] in Central venous bloodOrdered By: Nikko Guerrero on 10-05-2024 CO2 [Moles/Vol] 20.5 mmol/L Low 21.0-32.0 [facility] Chloride assayOrdered By: Lesia Guerrero on 04-27-2025 Chloride [Moles/Vol] 104 mmol/L 98-108 [facility] Emergency Department Summary on 10-05-2024 Emergency Department Summary [facility] Medical Records Department [address] [place] [address] Emergency Department Summary 10/05/24 MR#: [id number] Acct: [id number] Name: KATIE ROBB Rep #: [id number] : 1990 34 From: Nikko Guerrero MD PCP: Dr. Tatyana Matta MD Status:REG ER Location: ED HPI HPI - Female History of Present Illness Chief Complaint: Vag Bld, Preg Narrative Narrative: 34-year-old female, G2, P1 at approximately 8-1/2 weeks gestation presents with vaginal bleeding that began at 7 PM, approximately 3-1/2 hours ago. She relates history that after her first , she had hemorrhage. Hence, now she is considered high risk as she also has endometriosis. This is her second in vitro fertilization. She states that she had a 6-week ultrasound which showed she had a subchorionic hematoma. She had light spotting prior to that. However, today she is having pelvic cramping and states that although she has not saturated an entire pad, this would be similar to her previous menses and perhaps a heavy flow day. No lightheadedness, denies other symptoms. She called the nurse practitioner at [place] who told her to come to the emergency department for evaluation. [facility] Medical History Endometriosis DIC (disseminated intravascular coagulation) Retained products of conception hemorrhage Conceived by in vitro fertilization Segmental and somatic dysfunction of lumbar region Segmental dysfunction of thoracic region Segmental dysfunction of lumbar region Hypothyroid Acute postoperative anemia due to greater than expected blood loss Vaginal delivery Infertility COVID-19 Recurrent bacterial infection Low-lying placenta Raynauds syndrome Home Medications ???Medication ???Instructions ???Recorded ???Last Taken ???Type PNV no.63-iron,carbonyl 27mg-folic 1 cap PO QDAY 10/02/24 Unknown H istory acid 800 mcg-dha 200 mg capsule conjugated estrogens 25 mg 25 mg IM ONCE 10/02/24 Unknown His tory solution for injection progesterone 50 mg/mL 10 mg IM QDAY 10/02/24 Unknown His tory intramuscular oil Allergy/AdvReac Type Severity Reaction Status Date / Time No Known Allergies Allergy Verified 10/05/24 21:56 Family History Father Lung cancer, Onset Age: 42 Mother Lymphoma, Onset Age: 54 Thyroid disorder Surgical History H/O dilation and curettage History of surgery Hx of wisdom tooth extraction Hx of tonsillectomy Hx of laparoscopy Social History adopted: No household members: spouse and children housing: house number of children: 1 current occupational status: employed 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 current occupational exposures/hazards: No pets and animals: Yes pets and animals: dog(s) history of recent travel: No sexually active: Yes Smoking Status: Never smoker alcohol intake: former details: not while substance use type: does not use well-balanced diet: daily or most days caffeine: No eating out: rarely or never during the past year weight has: increased > 10 lbs what type of physical activity do you participate in: walking, yoga and weight training frequency: 3-4 times per week duration: 30-45 minutes/day diego/worship: None seatbelt use: always do you feel safe at home: Yes additional social history: - 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 Has not fully saturated a pad but has changed it. No lightheadedness, no exacerbating or alleviating factors. EXAM Physical Exam Narrative Exam Narrative: Afebrile. Vital signs noted. Nontoxic-appearing. Cardiovascular examination reveals a regular rate and rhythm. Lungs clear to auscultation bilaterally. Abdomen is soft and nontender without guarding or rebound. Neurological examination nonfocal and nonlateralizing. No skin pallor. Const Vital Signs: 10/05/24 21:56 10/06/24 00:00 Temperature 97 F L Temperature Source Temporal Pulse Rate 85 89 Respiratory Rate 16 16 Blood Pressure 110/86 H 110/72 Blood Pressure Mean 94 84 Pulse Ox 100 99 Oxygen Delivery Method Room Air Room Air MDM MDM MDM Narrative Medical decision making narrative: Differential diagnosis includes but not limited to threatened miscarriage versus subchorionic hemorrhage. Patient states she is O+. She states that there was heart rate and intrauterine on her ultrasound at 6 weeks. Hence, I have lower suspicion for ectopic . I reviewed her prior EMR a (more content not included)... Normal [facility] Eosinophil percentageOrdered By: Nikko Guerrero on 10-05-2024 Eosinophils/100 WBC (Bld) 10.0 % High 0-5 [facility] Erythrocyte distribution wid th (RBC) [Ratio]Ordered By: Nikko Guerrero on 10-05-2024 Erythrocyte distribution width (RBC) [Entitic vol] 38.3 fL 35.1-43.9 [facility] Erythrocyte distribution wid th ratioOrdered By: Nikko Guerrero on 10-05-2024 Erythrocyte distribution width (RBC) [Ratio] 12.0 % 11.6-14.6 [facility] Erythrocyte distribution wid th standard deviationOrdered By: Nikko Guerrero on 10-05-2024 Erythrocyte distribution width (RBC) [Ratio] 38.3 fl 35.1-43.9 [facility] Estimation of creatinine elliot aranceOrdered By: Nikko Guerrero on 10-05-2024 Estimated Creatinine Clearance Calc 95.78 ml/min 50-250 [facility] GFR/1.73 sq M.predicted beto g non-blacks MDRD (S/P/Bld) [Vol rate/Area]Ordered By: Nikko Guerrero on 10-05-2024 Estimated GFR (MDRD) Non-Af Amer 81 >60 [facility] Comment on above: mL/min/1.73m2 CKD-EP I Creatinine Equation (2020) Glomerular filtration rate ( GFR) estimation/1.73 sq m using serum, plasma, or whole bOrdered By: Nikko Guererro on 10-05-2024 GFR/1.73 sq M.predicted among non-blacks MDRD (S/P/Bld) [Vol rate/Area] 81 mL/min/{1.73_m2} >60 [facility] Comment on above: mL/min/1.73m2 CKD-EP I Creatinine Equation (2020) HCG ( test) QlOrder ed By: Nikko Guerrero on 10-05-2024 Human Chorionic Gonadotropin, Quant 83082 mIU/mL High <9 [facility] Comment on above: Gestational Age0.2-1 Week: 5-50 mIU/mL1-2 Weeks: 50-500 mIU/mL2-3 Weeks: 100-5000 mIU/mL3-4 Weeks: 500-10,000 mIU/mL4-5 Weeks:1000-50,000 mIU/mL5-6 Weeks: 10,000-100,000 mIU/mL6-8 Weeks: 15,000-200,000 mIU/mL2-3 Months:10,000-100,000 mIU/mL Hematocrit Auto (Bld) [Volum e fraction]Ordered By: Nikko Guerrero on 10-05-2024 Hematocrit (Bld) [Volume fraction] 40.3 % 37-47 [facility] Hemoglobin measurementOrdere d By: Nikko Guerrero on 10-05-2024 Hemoglobin (Bld) [Mass/Vol] 15.0 g/dL 12.0-15.0 [facility] Immature granulocytes/100 WB C Auto (Bld)Ordered By: Nikko Guerrero on 10-05-2024 Immature granulocytes/100 WBC (Bld) 0.500 % 0.0-0.9 [facility] Comment on above: IG% - Immature Granu locytes (promyelocytes, myelocytes and metamyelocytes) > 1% indicates that a LEFT SHIFT is Present. Laboratory - Chemistry and C hemistry - challengeOrdered By: Nikko Guerrero on 10-05-2024 AST [Catalytic activity/Vol] 19 U/L <32 [facility] Lymphocytes Auto (Unsp spec) [#/Vol]Ordered By: Nikko Guerrero on 10-05-2024 Lymphocytes (Bld) [#/Vol] 3.23 10*3/uL 0.83-4.51 [facility] Lymphocytes/100 WBC Auto (Un sp spec)Ordered By: Nikko Guerrero on 10-05-2024 Lymphocytes/100 WBC (Bld) 23.5 % 19-41 [facility] MCV (mean corpuscular volume ) determinationOrdered By: Nikko Guerrero on 10-05-2024 MCV (RBC) [Entitic vol] 87.4 fL 81-99 [facility] Mean corpuscular hemoglobin (MCH) determinationOrdered By: Nikko Guerrero on 10-05-2024 MCH (RBC) [Entitic mass] 32.5 pg High 27.0-32.0 [facility] Mean corpuscular hemoglobin concentration (MCHC) determinationOrdered By: Nikko Guerrero on 10-05-2024 MCHC (RBC) [Mass/Vol] 37.2 g/dL High 32-36 [facility] Mean platelet volume determi nationOrdered By: Nikko Guerrero on 10-05-2024 Platelet mean volume (Bld) [Entitic vol] 12.1 fL High 6.2-12.0 [facility] Monocyte percentageOrdered B y: Nikko Guerrero on 10-05-2024 Monocytes/100 WBC (Bld) 7.4 % 0-10 [facility] Neutrophil percentageOrdered By: Nikko Guerrero on 10-05-2024 Neutrophils/100 WBC (Bld) 58.0 % 47-70 [facility] Nucleated red blood cell per centageOrdered By: Nikko Guerrero on 10-05-2024 Nucleated RBC/100 WBC (Bld) [Ratio] 0 % 0-5 [facility] Platelet countOrdered By: Lesia Guerrero on 10-05-2024 Platelets (Bld) [#/Vol] 191 10*3/uL 150-450 [facility] Potassium (Unsp spec) [Mass/ Vol]Ordered By: Nikko Guerrero on 10-05-2024 Potassium [Moles/Vol] 3.9 mmol/L 3.3-5.1 [facility] Potassium measurement (mass/ volume)Ordered By: Nikko Guerrero on 10-05-2024 Potassium (Unsp spec) [Mass/Vol] 3.9 mmol/L 3.3-5.1 [facility] RBC Auto (Bld) [#/Vol]Ordere d By: Nikko Guerrero on 10-05-2024 RBC (Bld) [#/Vol] 4.61 10*6/uL 4.2-5.4 [facility] Reactive lymphocyte countOrd ered By: Nikko Guerrero on 10-05-2024 Reactive Lymphocytes 2+ [facility] Serum creatinine measurement (mass/volume)Ordered By: Nikko Guerrero on 10-05-2024 Creatinine [Mass/Vol] 0.96 mg/dL 0.70-1.20 [facility] Serum globulin measurementOr dered By: Nikko Guerrero on 10-05-2024 Globulin (S) [Mass/Vol] 2.5 g/dL 2.2-4.2 [facility] Serum glucose measurement (m ass/volume)Ordered By: Nikko Guerrero on 10-05-2024 Glucose [Mass/Vol] 109 mg/dL High 70-99 [facility] Serum human chorionic gonado tropin detection for pregnancyOrdered By: Nikko Guerrero on 10-05-2024 HCG ( test) Ql [address] mIU/mL High <9 [facility] Comment on above: Gestational Age0.2-1 Week: 5-50 mIU/mL1-2 Weeks: 50-500 mIU/mL2-3 Weeks: 100-5000 mIU/mL3-4 Weeks: 500-10,000 mIU/mL4-5 Weeks:1000-50,000 mIU/mL5-6 Weeks: 10,000-100,000 mIU/mL6-8 Weeks: 15,000-200,000 mIU/mL2-3 Months:10,000-100,000 mIU/mL Serum or plasma alanine heath otransferase (ALT) measurementOrdered By: Nikko Guerrero on 10-05-2024 ALT [Catalytic activity/Vol] 11 U/L <35 [facility] Serum or plasma albumin viola urement (mass/volume)Ordered By: Nikko Guerrreo on 10-05-2024 Albumin [Mass/Vol] 4.3 g/dL 3.5-5.0 [facility] Serum or plasma albumin/glob ulin mass ratioOrdered By: Nikko Guerrero on 10-05-2024 Albumin/Globulin [Mass ratio] 1.7 {ratio} 0.9-2.4 [facility] Serum or plasma alkaline danial sphatase measurementOrdered By: Nikko Guerrero on 10-05-2024 ALP [Catalytic activity/Vol] 67 U/L 35-104 [facility] Serum or plasma calcium viola urement (mass/volume)Ordered By: Nikko Guerrero on 10-05-2024 Calcium [Mass/Vol] 9.2 mg/dL 7.6-11.0 [facility] Serum or plasma urea nitroge n measurement (mass/volume)Ordered By: Nikko Guerrero on 10-05-2024 Urea nitrogen [Mass/Vol] 16 mg/dL 4-19 [facility] Sodium levelOrdered By: Nikko Guerrero on 10-05-2024 Sodium [Moles/Vol] 137 mmol/L 133-145 [facility] Total proteinOrdered By: Abbi Guerrero on 10-05-2024 Protein [Mass/Vol] 6.8 g/dL 5.9-8.4 [facility] Transvaginal w/Preg USon Transvaginal w/Preg US [facility] [address] [place], [place] [id number] Transvaginal w/Preg US MR#: [id number] Acct: [id number] Name: KATIE ROBB Rep #: [id number] : 1990 F 34 From: Bj Alvarado MD PCP: Dr. Tatyana Matta MD Status: [facility] ER Study: Transvaginal w/Preg US Date of Exam: 10/05/24 Exam# [id number] Ordering Dr: Nikko Guerrero MD PROCEDURE: TRANSVAGINAL W/PREG US 10/05/2024 REASON FOR EXAM: VAGINAL BLEEDING TECHNIQUE: Transvaginal FINDINGS: Comments: Number of Gestational Sacs: 1 Gestational Sac Shape: Normal Number of Fetuses: 1 Heart Rate: 171 (average) Survey of Visible Anatomic Structures: Grossly unremarkable for gestational age. Nasal Bones: Yolk Sac: Present and unremarkable. Placenta: Presently not well-visualized Amniotic Fluid Volume: Subjectively normal for gestational age. Uterine Abnormalities: Maternal uterus is unremarkable. Ovaries / Adnexa: Both maternal ovaries are visualized and unremarkable. DIMENSIONS: Parameter Measurement / EGA [place] Length: 16 mm/7 weeks 6 days Gestational Sac: 18 mm/6 weeks 5 days Yolk Sac: 4 mm/ ESTIMATED GESTATIONAL AGE: By Ultrasound: 7 weeks 2 days By LMP: 8 weeks 4 days ESTIMATED DATE OF DELIVERY: By Ultrasound: 05/22/2025 By LMP: 05/13/2025 US/Transvaginal w/Preg US IMPRESSION: UNREMARKABLE FIRST TRIMESTER ULTRASOUND. Reading Location: [id number] CC: Dr. Nikko Guerrero MD; Dr. Tatyana Matta MD Reinforcing Rod Layer: Signed Normal [facility] White blood cell (WBC) count Ordered By: Nikko Guerrero on 10-05-2024 WBC (Bld) [#/Vol] 13.7 10*3/uL High 4.4-11.0 [facility] hCG Titer Quant., Serumon HCG QUANT. 69276 mIU/mL High <9 non-preg [facility] Comment on above: Result Comment: Gest ational Age 0.2-1 Week: 5-50 mIU/mL 1-2 Weeks: 50-500 mIU/mL 2-3 Weeks: 100-5000 mIU/mL 3-4 Weeks: 500-10,000 mIU/mL 4-5 Weeks:1000-50,000 mIU/mL 5-6 Weeks: 10,000-100,000 mIU/mL 6-8 Weeks: 15,000-200,000 mIU/mL 2-3 Months:10,000-100,000 mIU/mL Performed By: #### L 3890.6102, BTS, L509.8002, L3890.6006, L100.0100, L3890.6301, L900.0098, L509.4006 #### [facility] [address] [place], [place], [address] Chiropractic Reporton 2024 Chiropractic Report [facility] [address] [place] [id number] OFFICE VISIT Date of Service: 07/22/24 MR#: [id number] Acct: [id number] Name: KATIE ROBB Rep #: [id number] : 1990 Provider: MARCE Dela Cruz Age/Sex: 34/F Location: [facility] Status: Signed Intake Vital Signs 05/01/24 14:31 07/22/24 15:10 Height 5 ft 7 in 5 ft 7 in Weight: 183 lb 190 lb BMI 28.6 29.7 BP 96/68 112/74 Blood Pressure Location Lt brachial Lt brachial Position Sitting Sitting Respiration 14 Pulse 71 Pulse Source Monitor Temp 96.6 F L Temp Source Temporal Pulse Oximetry (%) 98 Oxygen Delivery Method room air Intake Visit Reasons: EST CARE Chief Complaint: Back pain Allergies No Known Allergies Allergy (Verified 07/22/24 15:10) Medications ???Medication ???Instructions ???Recorded ???Confirmed ???Type multivitamin 1 tab PO QDAY 05/01/24 07/22/24 Hi story PFSH Medical History (Updated 07/22/24 @ 15:[address] Aruna Gomez, [place]) Segmental dysfunction of thoracic region Segmental dysfunction of lumbar region Hypothyroid hemorrhage Retained products of conception DIC (disseminated intravascular coagulation) Acute postoperative anemia due to greater than expected blood loss Vaginal delivery Infertility COVID-19 Recurrent bacterial infection Low-lying placenta Raynauds syndrome Endometriosis Conceived by in vitro fertilization Surgical History H/O dilation and curettage History of surgery Hx of wisdom tooth extraction Hx of tonsillectomy Hx of laparoscopy Family History Father Lung cancer, Onset Age: 42 Mother Lymphoma, Onset Age: 54 Thyroid disorder Social History adopted: No household members: spouse housing: house number of children: 1 current occupational status: employed 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 current occupational exposures/hazards: No pets and animals: Yes pets and animals: dog(s) history of recent travel: No sexually active: Yes Smoking Status: Never smoker alcohol intake: current alcohol intake frequency: a few times a month substance use type: does not use well-balanced diet: daily or most days caffeine: No eating out: rarely or never during the past year weight has: increased > 10 lbs what type of physical activity do you participate in: walking, yoga and weight training frequency: 3-4 times per week duration: 30-45 minutes/day diego/worship: None seatbelt use: always do you feel safe at home: Yes additional social history: - Yayo [facility] EST CARE Chief Complaint: Back pain Visit Number: 1 Details: Katie Robb a 34 year old female presents for initial evaluation of back pain. She complains of mid back pain and stiffness. She does report intermittent numbness and tingling into her right arm, which correlates with over use. She also complains of low back pain and stiffness that is equal bilaterally. She denies numbness, tingling or radicular pain from her back. 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 She also has a 1.5 year old and is always playing with her on the floor and lifting her. She has received administrator health care facility in the past and while she was which she reports was helpful. She was advised that T3 was rotated to the right and she is right hand dominant. She denies previous surgery or injury to her back. Her job is very physical which exacerbates her pain and stiffness. She reports previous chiropractic treatments have helped alleiviate her pain. Location: mid and low back Duration: intermittent, frequent Aggravating or associated factors: work, bending, lifting Relieving factors: chiro Pain Quality: aching and dull Exam Musc General: Yes normal gait and joint tenderness; No normal posture, muscle weakness or decreased range of motion Cervical Spine: Yes loss of normal cervical lordosis, Yes cervical muscular tenderness right greater than left lower , Yes pain with cervical ROM with lateral flexion to left, Yes cervical spasm right greater than left diffuse trapezius and paracervical muscles and Yes misalignment misalignment: C5, C6 and C7 Thoracic/Lumber: No thoracic and lumbar spine normal to inspection (high r shoulder), Yes Lasegue's sign negative, Yes straight leg raise negative bilaterally, No pain with thoraco-lumbar ROM, Yes paraspinal tenderness on the right in the upper thoracic and in the mid thoracic and bilaterally in the mid lumbar and in the lower lumbar, No thoraco-lumbar ROM limited, Yes scoliosis (suspect unde (more content not included)... Normal [facility] Internal Medicine Office Vis lucho 04-30-2024 Internal Medicine Office Visit [facility] [address] [place] [address] [address] [place] [address] OFFICE VISIT Date of Service: 05/01/24 MR#: [id number] Acct: [id number] Name: KATIE ROBB Rep #: [id number] : 1990 Provider: Dr. Tatyana núñez MD Age/Sex: 34/F Location: [facility] Status: Signed Intake Vital Signs 03/16/23 13:28 03/27/24 14:00 05/01/24 14:31 Height 5 ft 7 in 5 ft 7 in 5 ft 7 in Weight: 183 lb BMI 28.6 BP 96/68 Blood Pressure Location Lt brachial Position Sitting Respiration 14 Pulse 71 Pulse Source Monitor Temp 96.6 F L Temp Source Temporal Pulse Oximetry (%) 98 Oxygen Delivery Method room air Intake Visit Reasons: EST NEW PT - WC PT Chief Complaint: Est care Accompanied by: Self Is patient in pain?: No Allergies No Known Allergies Allergy (Verified 05/01/24 14:27) Medications ???Medication ???Instructions ???Recorded ???Confirmed ???Type desogestrel 0.15 mg-ethinyl 1 tab PO QDAY 03/27/24 05/01/24 History estradiol 0.03 mg tablet (Apri) multivitamin 1 tab PO QDAY 05/01/24 05/01/24 History PFSH Medical History (Updated 05/01/24 @ 15:[address] Tatyana Matta MD) Hypothyroid hemorrhage Retained products of conception DIC (disseminated intravascular coagulation) Acute postoperative anemia due to greater than expected blood loss Vaginal delivery Infertility COVID-19 Recurrent bacterial infection Low-lying placenta Raynauds syndrome Endometriosis Conceived by in vitro fertilization Surgical History (Updated 05/01/24 @ 14:[address] Tatyana Matta MD) H/O dilation and curettage History of surgery Hx of wisdom tooth extraction Hx of tonsillectomy Hx of laparoscopy Family History (Updated 05/01/24 @ 14:[address] Tatyana Matta MD) Father Lung cancer, Onset Age: 42 Mother Lymphoma, Onset Age: 54 Thyroid disorder Social History (Updated 05/01/24 @ 14:[address] 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 current occupational exposures/hazards: No pets and animals: Yes pets and animals: dog(s) history of recent travel: No sexually active: Yes Smoking Status: Never smoker alcohol intake: current alcohol intake frequency: a few times a month substance use type: does not use well-balanced diet: daily or most days caffeine: No eating out: rarely or never during the past year weight has: increased > 10 lbs what type of physical activity do you participate in: walking, yoga and weight training frequency: 3-4 times per week duration: 30-45 minutes/day diego/worship: None seatbelt use: always do you feel safe at home: Yes additional social history: - Yayo HPI HPI Chief Complaint: Est care Details: KATIE ROBB, is a 34 F who presents to the office today to establish care. She was seeing Dr. Vazquez and last saw them about 2 years ago. She plans on doing her employee labs. She is up to date on her screening and isn't due for any immunizations. She doesn't smoke and doesn't need any refills. She reports she is eating healthy and staying active. She has no questions or concerns at this time. Medications reviewed: Yes NED Garcia likes to exercises by doing outdoor activities with hiking/biking. They watch their diet for sodium, low fat, and low cholesterol most of the time. List of current specialists seen: OBGYN End of life planning discussed including patient's advanced directive wishes: Discussed. Patient doesn't have one in place. I am willing to follow Katie's advanced directives PHQ-2/Depression screen They in the past two weeks denies having felt down, depressed, hopeless or with little interest or pleasure in doing things. Hearing evaluation: Normal ROS Const Constitutional: Positive for headache(s); No body ache, chills, excessive sweating, fatigue, fever(s), frequent falls, night sweats, snoring, weakness, weight change, sleep problems or change in appetite Eyes Eyes: Positive for change in vision (follows with eye doctor regularly); No blurry vision, dry eyes, eye pain or Light sensitivity ENT ENT: Positive for headache(s); No abnormal hearing, ear or mastoid pain, tinnitus, dizziness/vertigo, balance problems, nasal congestion, sinus pressure, sinus pain, dry mouth, difficulty swallowing, neck pain or sore throat Resp Respiratory: No cough, chest congestion, shortness of breath, snoring or wheezing Cardio Cardiology: No chest pain at rest, chest pain with exertion, excessive sweating, dyspnea on exertion, lightheadedness, orthopnea, palpitations or other (no leg swelling) Gastro GI: No abdominal pain, change in bowel habits, constipation, cramping, (more content not included)... Normal [facility] PAP IG HPV APTIMA 16/18,45on 04-01-2024 ADEQ Comment Normal . [facility] Comment on above: Order Comment: Speci men Comment: [id number] Specimen Comment: Source.............Cervix Specimen Comment: No. of containers..01 ThinPrep Vial Result Comment: Sati sfactory for evaluation. Endocervical and/or squamous metaplastic cells (endocervical component) are present. Performed By: #### L 7400.0280 #### [facility] [address] [place], [address] COMM . Normal . [facility] Comment on above: Order Comment: Speci men Comment: [id number] Specimen Comment: Source.............Cervix Specimen Comment: No. of containers..01 ThinPrep Vial Performed By: #### L 7400.0280 #### [facility] [address] [place], [place], [id number] COMMENT Comment Normal . [facility] Comment on above: Order Comment: Speci men Comment: [id number] Specimen Comment: Source.............Cervix Specimen Comment: No. of containers..01 ThinPrep Vial Result Comment: This liquid based ThinPrep(R) pap test was screened with the use of an image guided system. Performed By: #### L 7400.0280 #### [facility] [address] [place], [place], [id number] DIAG Comment Normal . [facility] Comment on above: Order Comment: Speci men Comment: [id number] Specimen Comment: Source.............Cervix Specimen Comment: No. of containers..01 ThinPrep Vial Result Comment: NEGA TIVE FOR INTRAEPITHELIAL LESION OR MALIGNANCY. Performed By: #### L 7400.0280 #### [facility] [address] [place], [place], [id number] HPV APTIMA, HR Negative Normal Negative [facility] Comment on above: Order Comment: Speci men Comment: [id number] Specimen Comment: Source.............Cervix Specimen Comment: No. of containers..01 ThinPrep Vial Result Comment: This nucleic acid amplification test detects fourteen high- risk HPV types (16,18,31,33,35,39,45,51,52,56,58,59,66,68) without differentiation. Performed By: #### L 7400.0280 #### [facility] [address] [place], [place], [address] HPV Ivet Rfx Comment Normal . [facility] Comment on above: Order Comment: Speci men Comment: [id number] Specimen Comment: Source.............Cervix Specimen Comment: No. of containers..01 ThinPrep Vial Result Comment: Crit eria not met, HPV Genotype not performed. Performed at: [facility] [employer] [address] [place] [id number] Cafeteria Operator: Axel Bynum MD, Phone: [phone] Performed at: - [address] [id number] Cafeteria Operator: Mayra Kaba MD, Phone: [phone] Performed at: = - [address] [id number] Cafeteria Operator: Mayra Kaba MD, Phone: [phone] Performed By: #### L 7400.0280 #### [facility] [address] [place], [place], [id number] PAPSMR Comment Normal . [facility] Comment on above: Order Comment: Speci men Comment: [id number] Specimen Comment: Source.............Cervix Specimen Comment: No. of containers..01 ThinPrep Vial Result Comment: The Pap smear is a screening test designed to aid in the detection of premalignant and malignant conditions of the uterine cervix. It is not a diagnostic procedure and should not be used as the sole means of detecting cervical cancer. Both false-positive and false-negative reports do occur. Performed By: #### L 7400.0280 #### [facility] [address] [place], [place], [address] PERFORM Comment Normal . [facility] Comment on above: Order Comment: Speci men Comment: [id number] Specimen Comment: Source.............Cervix Specimen Comment: No. of containers..01 ThinPrep Vial Result Comment: Efe Armstrong Print Line Tailer (ASCP) Performed By: #### L 7400.0280 #### [facility] [address] [place], [place], [address] Urgent Care Visit Reporton 1 Urgent Care Visit Report [facility] [address], [address] [place], [place] [address] OFFICE VISIT Date of Service: 03/28/24 MR#: [id number] Acct: [id number] Name: KATIE ROBB Rep #: [id number] : 1990 Provider: RAFY Garvin Age/Sex: 34/F Location: [facility] Status: Signed Intake Vital Signs 03/27/24 14:00 03/28/24 12:09 Height 5 ft 7 in BP 112/78 Blood Pressure Location Rt brachial Position Sitting Respiration 12 Pulse 91 Pulse Source Monitor Temp 98.5 F Temp Source Oral Pulse Oximetry (%) 100 Oxygen Delivery Method room air Intake Visit Reasons: SORE THROAT, CONGESTION Allergies No Known Allergies Allergy (Verified 03/28/24 12:10) PFSH Medical History Vaginal delivery Infertility COVID-19 Recurrent bacterial infection Low-lying placenta Raynauds syndrome Endometriosis Conceived by in vitro fertilization Surgical History History of surgery Hx of wisdom tooth extraction Hx of tonsillectomy Hx of laparoscopy Family History Father Lung cancer, Onset Age: 42 Mother Lymphoma, Onset Age: 54 Social History adopted: No household members: spouse housing: house number of children: 1 current occupational status: employed 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 current occupational exposures/hazards: No pets and animals: Yes pets and animals: dog(s) history of recent travel: No sexually active: Yes Smoking Status: Never smoker alcohol intake: never substance use type: does not use well-balanced diet: daily or most days caffeine: No eating out: rarely or never during the past year weight has: increased > 10 lbs what type of physical activity do you participate in: walking, yoga and weight training frequency: 3-4 times per week duration: 30-45 minutes/day diego/worship: None seatbelt use: always do you feel safe at home: Yes additional social history: - Yayo HPI HPI Details: KATIE ROBB, is a 34 F who presents to the office today for [facility] evaluation at the [facility] for approximately 1-1/2-week history of progressively worsening facial pressure/congestion with purulent postnasal drip/cough and bilateral ear pressure - as well as new onset OU conjunctival erythema w/ exudate this morning upon awakening. No vision changes or eye globe pain. No complaints of fever, chills, myalgias, fatigue, runny nose, or nausea/vomiting/diarrhea . No complaints of chest pain/shortness of breath/dyspnea on exertion. No close contacts with similar complaints. No other associated symptoms and no other alleviating/aggravating factors. ROS Const Constitutional: No other (as above) Exam Const General: cooperative, healthy appearing and no acute distress Nutritional Appearance: average body habitus Orientation: alert, awake and oriented x3 HENMT Head: normal to inspection Ears: hearing grossly normal bilaterally, external ears normal, TM's normal bilaterally and EAC's normal Nose: external nose normal, nares normal, septum normal and no nasal discharge Face and sinus: normal facial exam, sinuses nontender (Though bilateral maxillary fullness to palpation) and face symmetric Mouth: oral mucosae normal, lip normal, tongue normal and oropharynx normal Throat: posterior oropharynx normal, tonsils normal, uvula midline and postnasal drainage (Purulent) Eyes General: appearance normal, both eyes and all related structures (except OU conjunctival injection with trace exudate; negative limbus OU) Neck Neck: normal visual inspection, full ROM, no meningeal signs, supple and lymphadenopathy (Bilateral anterior cervical lymph node swelling/tender to palpation) Neck mass: No Thyroid: thyroid normal Chest Chest palpation inspection: normal inspection of the chest Resp Effort Inspection: normal respiratory effort and able to speak in complete sentences Auscultation: Bilateral: Clear to Auscultation Cardio Palpation: normal PMI Rate: regular rate Rhythm: regular rhythm Heart Sounds: S1 normal, S2 normal, no gallops, no murmurs and no rubs Pulses: radial pulses present GI Inspection: normal to inspection Skin General: no rashes or lesions noted Neuro General: patient alert, patient awake and patient oriented x3 Cognition: normal cognition Speech: speech normal Psych Appearance: grossly normal Mental Status: mental status grossly normal Mood: congruent mood Affect: normal affect Speech and Movement: speech and movement normal Attitude: cooperative Diagnoses Acute maxillary sinusitis, unspecified J01.00 Acute conjunctivitis, (more content not included)... 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) Chief Complaint: Annual Sole Scraper Required: No Is patient in pain?: No Allergies No Known Allergies Allergy (Verified 03/27/24 13:51) Medications ???Medication ???Instructions ???Recorded ???Confirmed ???Type multivitamin no.47-iron fum 27 1 cap PO DAILY 07/06/22 03/27/24 History mg-folate no.1 1 mg-dha 300 mg capsule (PNV-DHA) albuterol sulfate 90 mcg/actuation 2 puff inhalation Q6H PRN 02/25/23 03/27/24 History aerosol inhaler shortness of breath or wheezing ferrous fumarate 200 mg (65 mg 1 tab PO DAILY #30 tabs 02/27/23 03/27/24 Rx iron)-vit C 25 mg tablet,extend release (Miladys-Sequels (iron-vit c)) lactobacillus combination no.4 3 3,000 mmu cells PO DAILY 03/16/23 03/27/24 History billion cell capsule (Probiotic) desogestrel 0.15 mg-ethinyl 1 tab PO QDAY 03/27/24 03/27/24 History estradiol 0.03 mg tablet (Apri) Is last menstrual period known: No Post menopausal: No Patient : No : No PFSH Medical History Vaginal delivery Infertility COVID-19 Recurrent bacterial infection Low-lying placenta Raynauds syndrome Endometriosis Conceived by in vitro fertilization Surgical History History of surgery Hx of wisdom tooth extraction Hx of tonsillectomy Hx of laparoscopy Family History Father Lung cancer, Onset Age: 42 Mother Lymphoma, Onset Age: 54 Social History adopted: No household members: spouse housing: house number of children: 1 current occupational status: employed 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 current occupational exposures/hazards: No pets and animals: Yes pets and animals: dog(s) history of recent travel: No sexually active: Yes Smoking Status: Never smoker alcohol intake: never substance use type: does not use well-balanced diet: daily or most days caffeine: No eating out: rarely or never during the past year weight has: increased > 10 lbs what type of physical activity do you participate in: walking, yoga and weight training frequency: 3-4 times per week duration: 30-45 minutes/day diego/worship: None seatbelt use: always do you feel safe at home: Yes additional social history: - Yayo History 1 Elective abortions Hx Para 1 Spontaneous abortions Hx # Term Pregnancies Ectopic pregnancies Hx # Pregnancies Multiple births # of living children 1 Past Pregnancies Del. Date Name GA/Weeks Outcome Route Bth Weight Infant Gen Labor Lgth Anesthesia Del Locatn Provider FOB 02/02/23 Angelito 39 live - full term 9lbs Female [facility] K. Wi cici Zee HPI Encounter for routine gynecological examination Details: KATIE ROBB is a 34 year old who presents for annual exam. 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 considering another IVF transfer. Last PAP: unknown History of abnormal PAP: no Last mammogram: Age 42 History of abnormal mammogram: Colon cancer screening: Age 47 Other preventative health care screenings: PCP Female Reproductive History Questions: sexually active: Yes, dyspareunia: No and PCB: No ROS Const Constitutional: Reports system reviewed and no additional complaints, except as documented Cardio Card: Reports system reviewed and no additional complaints, except as documented Resp Resp: Reports system reviewed and no additional complaints, except as documented GI GI: Reports system reviewed and no additional complaints, except as documented : Reports system reviewed and no additional complaints, except as documented; Denies difficulty voiding, dysuria or urinary frequency Skin Skin/Breast: Reports system reviewed and no additional complaints, except as documented Neuro Neuro: Reports system reviewed and no additional complaints, except as documented Psych Psych: Reports system reviewed and no additional complaints, except as documented; Denies anhedonia, anxiety or depression Exam Const General: cooperative, healthy appearing, comfortable and no a (more content not included)... Normal [facility] HIV 1 and HIV-2 antibody ass ay with HIV-1 p24 antigen detectionOrdered By: Christina Valera on 10-05-2023 HIV 1+2 Ab+HIV1 p24 Ag IA Ql Non-Reactive Nonreactive [facility] Neisseria gonorrhoeae genita l PCROrdered By: Christina Valera on 10-05-2023 N. gonorrhoeae DNA KEELEY+probe Ql (Genital specimen) [facility] No Panel InformationOrdered By: Christina Valera on 10-05-2023 Chlamydia trachomatis (PCR) [facility] Hepatitis B Surface Antigen Non-Reactive Nonreactive [facility] Hepatitis C Antibody Non-Reactive Nonreactive [facility] Comment on above: Non Reactive: < 0.8 Equivocal: >/= 0.8 to < 1.0 Reactive: >/= 1.0The CDC requires that a reactive/equivocal HCV antibody result be sent out for confirmation. HCV Quant by PCR testing. Rubella IgG Antibody Reactive Nonreactive [facility] Comment on above: Antibody Results Int erpretation of Immune Status Non Reactive Presumed Non-Immune Equivocal Equivocal Reactive Presumed Immune Serum Treponema species anti body detectionOrdered By: Christina Valera on 10-05-2023 Treponema sp Ab Ql (S) Non-Reactive [facility] Serum or plasma thyroid stim ulating hormone (TSH) measurement (units/volume)Ordered By: Christina Valera on 10-05-2023 TSH Qn 2.02 uIU/mL 0.358-3.74 [facility] Thin prep Papanicolaou smear with manual screeningOrdered By: Christina Valera on 10-05-2023 Thin prep Papanicolaou smear with manual screening 1.05 ng/dL 0.76-1.46 [facility] 36on 07-27-2023 36 Orders closed [facility] 36on 07-26-2023 36 Pt given orders for Complete PFT on 03/15/23. No response from pt after several attempts to sched test. Okay to close orders? Normal [facility] Office Visiton 03-15-2023 Follow-up visit [id number] Liz Robb 1990 F Date Provider Department Center 03/15/2023 [id number] CASTRO [facility] Family History Problem Relation Age of Onset No Known Problems Brother Hypertension Mother Cancer Mother Comments: lymphoma Thyroid disease Mother Diabetes Mother Cancer Father Comments: lung cancer, non-smoker Thyroid disease Sister Family Status - Relation Status Age at Brother Alive Mother Alive Father Sister Alive Level of Service:94562 [place] OFFICE/OUTPATIENT ESTABLISHED LOW MDM 20-29 MIN Reason for Visit and Comments: Asthma [148] - Wants tested Normal [facility] PATINSon 03-15-2023 PATINS A PFT study has been ordered for you. Central scheduling should reach out to you within the next several days to schedule this appropriately. If you do not hear from central scheduling within the next several days please do not wait more than 1 week. Reach out to central scheduling to verify that the test has been ordered and to get it scheduled. Their number is [phone]. Normal [facility] Progress Noteon 03-15-2023 Progress Note [facility] [address] [place] [facility] [address] Dept: [phone] Dept Loc: [phone] Visit type: Established Patient Reason for Visit: Asthma (Wants tested ) Assessment and Plan 1. Bronchospasm - Complete PFT study - montelukast (Singulair) 10 MG tablet; Take 1 tablet (10 mg) by mouth Nightly., Starting Niya 03/15/2023, Until Sun09/11/2023, Normal - XR chest 2 views - ipratropium-albuterol (Combivent Respimat) 20-100 MCG/ACT inhaler; Inhale 2 puffs 4 times daily., Starting Niya 03/15/2023, Until Sun03/14/2024, Normal 2. Flu vaccine need - Flu vaccine quadrivalent (IIV4), for patients ages 6 mo+, (Flulaval) preservative free -Patient has reported episodes of bronchospasm and COPD exacerbation worse in the evening hours. Discussed the use of albuterol versus a Combivent inhaler to use on a as needed basis. We will do a trial period of 30 days for Singulair to see if this helps with her symptoms. She has been anemic in the past. Did review her most recent blood work with her hemoglobin has returned to normal. She sounds clear at this point time there is no signs of acute respiratory distress or signs of wheezing at this point time. Symptoms all seem to be exacerbated or precipitated by recent COVID infection in January we did discuss long-haul COVID versus COVID lungs I suspect the symptoms will in the meantime resolved however should be sent for formal PFT study through [facility] per her request. Follow up if symptoms worsen or fail to improve, for Next scheduled follow-up. Subjective HPI this is a 33-year-old female with an underlying history of asthma contacted [facility] yesterday for next day appointment evaluation for concerns that she is having an asthmatic flare. Patient stated that she had COVID back in January and was 9 months at that time. She is currently 5 weeks and has had shortness of breath symptoms on and off ever since then. She endorses intermittent chest tightness and wheezing she did receive an inhaler from an urgent care and has been using it as she was told previously she had bronchitis states her home pulse ox was 97%. Has had problems with anemia in the past, and had some hemorrhaging issues with the delivery of baby Last March 24., jul 25.3, November 20., Jan 20., feb 21., Currently the patient has no acute distress no shortness of breath currently no chest pain palpitations as needed for tightness in her chest. She denies any current chest pain and pleuritic pain no abdominal pain she is currently breast-feeding her 5-week-old infant no acute concerns otherwise. Review of Systems Constitutional: Negative for chills and fever. HENT: Negative for congestion and sore throat. Respiratory: Positive for chest tightness and wheezing (Predominantly in the evening). Negative for cough and shortness of breath. Cardiovascular: Negative for chest pain. Gastrointestinal: Negative for abdominal pain, diarrhea, nausea and vomiting. Genitourinary: Negative for difficulty urinating, dysuria, frequency and urgency. Musculoskeletal: Negative for back pain. Neurological: Negative for dizziness and light-headedness. All other systems reviewed and are negative. Allergies Allergen Reactions Other Other reaction(s): Cough Typical hayfever symptoms Outpatient Medications Prior to Visit Medication Sig Dispense Refill levothyroxine (Synthroid, Levoxyl) 25 MCG tablet albuterol 108 (90 Base) MCG/ACT inhaler No facility-administered medications prior to visit. Past Medical History: Diagnosis Date Endometriosis 04/06/2021 Raynaud disease Social History Tobacco Use Smoking status: Never Smokeless tobacco: Never Substance Use Topics Alcohol use: Yes Past Surgical History: Procedure Laterality Date TONSILLECTOMY (HISTORICAL) 2001 WISDOM TOOTH EXTRACTION 2019 Family History Problem Relation Name Age of Onset No Known Problems Brother Hypertension Mother Cancer Mother lymphoma Thyroid disease Mother Diabetes Mother Cancer Father lung cancer, non-smoker Thyroid disease Sister Objective BP 99/68 (BP Location: Left arm, Patient Position: Sitting, BP Cuff Size: Large adult) Pulse 70 Temp 37.2 ?C (98.9 ?F) (Temporal) Ht 5' 7 (1.702 m) Wt 181 lb (82.1 kg) SpO2 99% BMI 28.35 kg/m? Physical Exam Vitals reviewed. Constitutional: General: She is not in acute distress. Appearance: Normal appearance. She is not ill-appearing or toxic-appearing. HENT: Right Ear: Tympanic membrane and ear canal normal. Left Ear: Tympanic membrane and ear canal normal. Mouth/Throat: Mouth: Mucous membranes are moist. Pharynx: No oropharyngeal exudate or posterior oropharyngeal erythema. Eyes: General: No scleral icterus. Conjunctiva/sclera: Conjunctivae normal. Pupils: Pupils are equal, r (more content not included)... Normal [facility] 36on 03-14-2023 36 S: Patient called [facility] clinical access reads landing with complaint of exacerbation of asthma B:pt said she had Covid in January and was 9 months . She said she has had the symptoms off and on since then. She is now 5 weeks post- A:Pt said she has intermittent chest tightness and wheezing. She said she has an inhaler she received from Urgent care when she had bronchitis. She said at night she coughs and it wakes her up. She uses 1 puff. Then sometimes needs another puff before 4 hours is up and it does help. Her pulse ox is reading 97% today. She denies chest pain, SOB at rest or productive cough. R:Appt 03/15 with Gustavo Glasgow at 240 pm. Pt declined POD scheduling for today. Pt advised to bring photo ID, insurance card, medications with them to their visit if possible. Covid questions: 1) Do you have signs or symptoms consistent with COVID-no 2) Have you been exposed to COVID in last 5 days-no 3) Have you tested positive for COVID in last 5 days-no Home care advise given to patient: When you use your inhaler do 2 puffs. Give a few seconds between puffs. DRINK PLENTY OF LIQUIDS * Drink plenty of liquids. It is important to stay well-hydrated. * A healthy adult should drink 8 cups (240 ml) or more of liquid each day. Warm fluids can help relax the airway Patient instructed to call back with worsening symptoms, concerns or questions. FIRST AID ADVICE FOR ASTHMA ATTACK: Take 4 puffs on your quick-relief inhaler (e.g., albuterol, salbutamol, Xopenex) right now. Reason for Disposition Patient wants to be seen Protocols used: Asthma [id number] [facility] Absolute lymphocyte countOrd ered By: Nat Gomez on 02-27-2023 Lymphocytes Auto (Unsp spec) [#/Vol] 2.58 10*3/uL 0.83-4.51 [facility] Basophil percentageOrdered B y: Nat Gomez on 02-27-2023 Basophils/100 WBC (Bld) 0.7 % 0-1 [facility] Eosinophils/100 WBC (Bld) 9.2 % 0-5 [facility] Neutrophils (Bld) [#/Vol] 3.6 10*3/uL 2.0-7.7 [facility] Neutrophils/100 WBC (Bld) 48.3 % 47-70 [facility] WBC (Bld) [#/Vol] 7.4 10*3/uL 4.4-11.0 [facility] Blood erythrocytes count (nu mber/volume)Ordered By: Nat Gomez on 02-27-2023 RBC (Bld) [#/Vol] 2.97 10*6/uL 4.2-5.4 [facility] Blood hemoglobin measurement (mass/volume)Ordered By: Nat Gomez on 02-27-2023 Hemoglobin (Bld) [Mass/Vol] 9.5 g/dL 12.0-15.0 [facility] Blood lymphocytes/100 leukoc ytesOrdered By: Nta Gomez on 02-27-2023 Lymphocytes/100 WBC (Bld) 34.9 % 19-41 [facility] Blood monocytes/100 leukocyt esOrdered By: Nat Gomez on 02-27-2023 Monocytes/100 WBC (Bld) 6.5 % 0-10 [facility] Blood platelet mean volumeOr dered By: Nat Gomez on 02-27-2023 Platelet mean volume (Bld) [Entitic vol] 11.8 fL 6.2-12.0 [facility] Determination of erythrocyte mean corpuscular volume (MCV)Ordered By: Nat Gomez on 02-27-2023 MCV (RBC) [Entitic vol] 93.9 fL 81-99 [facility] Hematocrit Auto (Bld) [Volum e fraction]Ordered By: Nat Gomez on 02-27-2023 Hematocrit (Bld) [Volume fraction] 27.9 % 37-47 [facility] Laboratory - Hematology and Cell countsOrdered By: Nat Gomez on 02-27-2023 Erythrocyte distribution width (RBC) [Entitic vol] 47.0 fL 35.1-43.9 [facility] Erythrocyte distribution width (RBC) [Ratio] 13.9 % 11.6-14.6 [facility] Immature granulocytes/100 WBC (Bld) 0.400 % 0.0-0.9 [facility] Comment on above: IG% - Immature Granu locytes (promyelocytes, myelocytes and metamyelocytes) > 1% indicates that a LEFT SHIFT is Present. MCH (RBC) [Entitic mass] 32.0 pg 27.0-32.0 [facility] Nucleated RBC/100 WBC (Bld) [Ratio] 0 % 0-5 [facility] MCHC Auto (RBC) [Mass/Vol]Or dered By: Nat Gomez on 02-27-2023 MCHC (RBC) [Mass/Vol] 34.1 g/dL 32-36 [facility] Platelets bldOrdered By: Dami Gomez on 02-27-2023 Platelets (Bld) [#/Vol] 174 10*3/uL 150-450 [facility] Basophil percentageOrdered B y: Nat Gomez on 02-26-2023 Bilirubin [Mass/Vol] 0.40 mg/dL 0.20-1.00 [facility] Comment on above: For patients on eltr ombopag therapy, use of Dimension [place] TBIL is not recommended. Chloride [Moles/Vol] 112 mmol/L 98-107 [facility] Glucose [Mass/Vol] 97 mg/dL 74-106 [facility] Potassium [Moles/Vol] 4.0 mmol/L 3.5-5.1 [facility] Protein [Mass/Vol] 4.6 g/dL 6.4-8.2 [facility] Sodium [Moles/Vol] 141 mmol/L 136-145 [facility] Direct bilirubinOrdered By: Nat Gomez on 02-26-2023 Bilirubin.direct [Mass/Vol] 0.15 mg/dL 0.00-0.30 [facility] INR in Blood by Coagulation assayOrdered By: Nat Gomez on 02-26-2023 INR Coag (Bld) [Relative time] 1.2 {INR} [facility] Laboratory - Chemistry and C hemistry - challengeOrdered By: Nat Gomez on 02-26-2023 ALP [Catalytic activity/Vol] 77 U/L 45-117 [facility] ALT [Catalytic activity/Vol] 16 U/L 13-56 [facility] CO2 [Moles/Vol] 26.0 mmol/L 21.0-32.0 [facility] Globulin (S) [Mass/Vol] 2.1 g/dL 2.2-4.2 [facility] Urea nitrogen/Creatinine [Mass ratio] 8.3 mg/mg 10-20 [facility] Laboratory - CoagulationOrde red By: Nat Gomez on 02-26-2023 aPTT Coag (Bld) [Time] 29.0 s 24.1-36.2 [facility] PT Coag (PPP) [Time] 15.2 s 11.7-14.9 [facility] No Panel InformationOrdered By: Nat Gomez on 02-26-2023 Estimated Creatinine Clearance Calc 82.57 ml/min [facility] Estimated GFR (MDRD) Amer 87 mL/min >60 [facility] Comment on above: GFR Calc Estimated GFR (MDRD) Non-Af Amer 72 mL/min >60 [facility] Comment on above: Non- GFR Calc Fibrinogen 201 mg/dl 203-444 [facility] No Panel InformationOrdered By: Valentine Urbina on 02-26-2023 D-Dimer Quantitative (PE/DVT) 0.82 FEU/ug/m 0.27-0.49 [facility] Comment on above: D-Dimer ELEVATED (>0 .49): Additional studies and clinicalassessments are indicated to conclude diagnosis of:Deep Vein Thrombosis (DVT) or Pulmonary Embolism (PE) Serum or plasma albumin viola urement (mass/volume)Ordered By: Nat Gomez on 02-26-2023 Albumin [Mass/Vol] 2.5 g/dL 3.2-5.0 [facility] Serum or plasma calcium viola urement (mass/volume)Ordered By: Nat Gomez on 02-26-2023 Calcium [Mass/Vol] 7.8 mg/dL 8.5-10.1 [facility] Serum or plasma creatinine m easurement (mass/volume)Ordered By: Nat Gomez on 02-26-2023 Creatinine [Mass/Vol] 0.96 mg/dL 0.55-1.02 [facility] Comment on above: The validity of the calculated GFR & GFRAA in patients over 70 years has not been determined. Clinical correlation is essential. Serum or plasma urea nitroge n measurement (mass/volume)Ordered By: Nat Gomez on 02-26-2023 Urea nitrogen [Mass/Vol] 8 mg/dL 7-18 [facility] Thin prep Papanicolaou smear with manual screeningOrdered By: Nat Gomez on 02-26-2023 Thin prep Papanicolaou smear with manual screening 12 U/L 15-37 [facility] Thin prep Papanicolaou smear with manual screening 3 5-15 [facility] Absolute lymphocyte countOrd ered By: Elliot Hill on 02-25-2023 Lymphocytes Auto (Unsp spec) [#/Vol] 3.53 10*3/uL 0.83-4.51 [facility] Basophil percentageOrdered B y: Elliot Hill on 02-25-2023 Basophils/100 WBC (Bld) 1.1 % 0-1 [facility] Chloride [Moles/Vol] 107 mmol/L 98-107 [facility] Eosinophils/100 WBC (Bld) 10.9 % 0-5 [facility] Glucose [Mass/Vol] 97 mg/dL 74-106 [facility] Neutrophils (Bld) [#/Vol] 4.7 10*3/uL 2.0-7.7 [facility] Neutrophils/100 WBC (Bld) 45.9 % 47-70 [facility] Potassium [Moles/Vol] 3.8 mmol/L 3.5-5.1 [facility] Sodium [Moles/Vol] 140 mmol/L 136-145 [facility] WBC (Bld) [#/Vol] 10.3 10*3/uL 4.4-11.0 [facility] Blood erythrocytes count (nu mber/volume)Ordered By: Elliot Hill on 02-25-2023 RBC (Bld) [#/Vol] 4.02 10*6/uL 4.2-5.4 [facility] Blood hemoglobin measurement (mass/volume)Ordered By: Elliot Hill on 02-25-2023 Hemoglobin (Bld) [Mass/Vol] 13.6 g/dL 12.0-15.0 [facility] Blood lymphocytes/100 leukoc ytesOrdered By: Elliot Hill on 02-25-2023 Lymphocytes/100 WBC (Bld) 34.3 % 19-41 [facility] Blood monocytes/100 leukocyt esOrdered By: Elliot Hill on 02-25-2023 Monocytes/100 WBC (Bld) 7.4 % 0-10 [facility] Blood platelet mean volumeOr dered By: Elliot Hill on 02-25-2023 Platelet mean volume (Bld) [Entitic vol] 11.8 fL 6.2-12.0 [facility] Determination of erythrocyte mean corpuscular volume (MCV)Ordered By: Elliot Hill on 02-25-2023 MCV (RBC) [Entitic vol] 94.5 fL 81-99 [facility] Hematocrit Auto (Bld) [Volum e fraction]Ordered By: Elliot Hill on 02-25-2023 Hematocrit (Bld) [Volume fraction] 38.0 % 37-47 [facility] INR in Blood by Coagulation assayOrdered By: Elliot Hill on 02-25-2023 INR Coag (Bld) [Relative time] 1.0 {INR} [facility] Laboratory - Chemistry and C hemistry - challengeOrdered By: Elliot Hill on 02-25-2023 CO2 [Moles/Vol] 27.0 mmol/L 21.0-32.0 [facility] Urea nitrogen/Creatinine [Mass ratio] 11.4 mg/mg 10-20 [facility] Laboratory - CoagulationOrde red By: Elliot Hill on 02-25-2023 aPTT Coag (Bld) [Time] 32.3 s 24.1-36.2 [facility] PT Coag (PPP) [Time] 13.5 s 11.7-14.9 [facility] Laboratory - Hematology and Cell countsOrdered By: Elliot Hill on 02-25-2023 Erythrocyte distribution width (RBC) [Entitic vol] 47.0 fL 35.1-43.9 [facility] Erythrocyte distribution width (RBC) [Ratio] 13.5 % 11.6-14.6 [facility] Immature granulocytes/100 WBC (Bld) 0.400 % 0.0-0.9 [facility] Comment on above: IG% - Immature Granu locytes (promyelocytes, myelocytes and metamyelocytes) > 1% indicates that a LEFT SHIFT is Present. MCH (RBC) [Entitic mass] 33.8 pg 27.0-32.0 [facility] Nucleated RBC/100 WBC (Bld) [Ratio] 0 % 0-5 [facility] MCHC Auto (RBC) [Mass/Vol]Or dered By: Elliot Hill on 02-25-2023 MCHC (RBC) [Mass/Vol] 35.8 g/dL 32-36 [facility] No Panel InformationOrdered By: Elliot Hill on 02-25-2023 Estimated Creatinine Clearance Calc 69.53 ml/min [facility] Estimated GFR (MDRD) Amer 71 mL/min >60 [facility] Comment on above: GFR Calc Estimated GFR (MDRD) Non-Af Amer 59 mL/min >60 [facility] Comment on above: Non- GFR Calc Platelets bldOrdered By: Skip Hill on 02-25-2023 Platelets (Bld) [#/Vol] 273 10*3/uL 150-450 [facility] Serum or plasma calcium viola urement (mass/volume)Ordered By: Elliot Hill on 02-25-2023 Calcium [Mass/Vol] 9.3 mg/dL 8.5-10.1 [facility] Serum or plasma creatinine m easurement (mass/volume)Ordered By: Elliot Hill on 02-25-2023 Creatinine [Mass/Vol] 1.14 mg/dL 0.55-1.02 [facility] Comment on above: The validity of the calculated GFR & GFRAA in patients over 70 years has not been determined. Clinical correlation is essential. Serum or plasma urea nitroge n measurement (mass/volume)Ordered By: Elliot Hill on 02-25-2023 Urea nitrogen [Mass/Vol] 13 mg/dL 7-18 [facility] Thin prep Papanicolaou smear with manual screeningOrdered By: Elliot Hill on 02-25-2023 Thin prep Papanicolaou smear with manual screening 6 - [facility] Basophil percentageOrdered B y: Niya Armstrong on 02-03-2023 WBC (Bld) [#/Vol] 18.7 10*3/uL 4.4-11.0 [facility] Blood erythrocytes count (nu mber/volume)Ordered By: Niya Armstrong on 02-03-2023 RBC (Bld) [#/Vol] 3.15 10*6/uL 4.2-5.4 [facility] Blood hemoglobin measurement (mass/volume)Ordered By: Niya Armstrong on 02-03-2023 Hemoglobin (Bld) [Mass/Vol] 11.0 g/dL 12.0-15.0 [facility] Blood platelet mean volumeOr dered By: Niya Armstrong on 02-03-2023 Platelet mean volume (Bld) [Entitic vol] 13.0 fL 6.2-12.0 [facility] Determination of erythrocyte mean corpuscular volume (MCV)Ordered By: Niya Armstrong on 02-03-2023 MCV (RBC) [Entitic vol] 95.9 fL 81-99 [facility] Hematocrit Auto (Bld) [Volum e fraction]Ordered By: Niya Armstrong on 02-03-2023 Hematocrit (Bld) [Volume fraction] 30.2 % 37-47 [facility] Laboratory - Hematology and Cell countsOrdered By: Niya Armstrong on 02-03-2023 Erythrocyte distribution width (RBC) [Entitic vol] 57.9 fL 35.1-43.9 [facility] Erythrocyte distribution width (RBC) [Ratio] 17.0 % 11.6-14.6 [facility] MCH (RBC) [Entitic mass] 34.9 pg 27.0-32.0 [facility] MCHC Auto (RBC) [Mass/Vol]Or dered By: Niya Armstrong on 02-03-2023 MCHC (RBC) [Mass/Vol] 36.4 g/dL 32-36 [facility] Platelets bldOrdered By: Joseph Armstrong on 02-03-2023 Platelets (Bld) [#/Vol] 198 10*3/uL 150-450 [facility] Absolute lymphocyte countOrd ered By: Nat Gomez on 02-01-2023 Lymphocytes Auto (Unsp spec) [#/Vol] 4.01 10*3/uL 0.83-4.51 [facility] Basophil percentageOrdered B y: Nat Gomez on 02-01-2023 Basophils/100 WBC (Bld) 0.6 % 0-1 [facility] Eosinophils/100 WBC (Bld) 1.7 % 0-5 [facility] Neutrophils (Bld) [#/Vol] 9.0 10*3/uL 2.0-7.7 [facility] Neutrophils/100 WBC (Bld) 57.9 % 47-70 [facility] Blood lymphocytes/100 leukoc ytesOrdered By: Nat Gomez on 02-01-2023 Lymphocytes/100 WBC (Bld) 25.8 % 19-41 [facility] Blood manual differential co mment interpretation (narrative result)Ordered By: Nat Gomez on 02-01-2023 Manual differential comment Ruddy (Bld) [Interp] SEE COMMENT [facility] Comment on above: MONOCYTOSIS NOTED Blood monocytes/100 leukocyt esOrdered By: Nat Gomez on 02-01-2023 Monocytes/100 WBC (Bld) 12.3 % 0-10 [facility] Blood platelet adequacy dete ction by light microscopyOrdered By: Nat Gomez on 02-01-2023 Platelets LM Ql (Bld) ADEQUATE ADEQ [facility] - Hematology and Cell countsOrdered By: Nat Gomez on 02-01-2023 Anisocytosis Ql (Bld) RARE [facility] Immature granulocytes/100 WBC (Bld) 1.700 % 0.0-0.9 [facility] Comment on above: IG% - Immature Granu locytes (promyelocytes, myelocytes and metamyelocytes) > 1% indicates that a LEFT SHIFT is Present. Nucleated RBC/100 WBC (Bld) [Ratio] 1.2 % 0-5 [facility] Macrocytes detectionOrdered By: Nat Gomez on 02-01-2023 Macrocytes Ql (Bld) RARE [facility] RBC morphologyOrdered By: Kristopher Gomez on 02-01-2023 RBC morphology finding Nom (Bld) N CHROM NORMAL NORM C&C [facility] Review by pathologistOrdered By: Nat Gomez on 02-01-2023 Pathologist review Ruddy (Unsp spec) [Interp] Reviewed [facility] Comment on above: Previous reported re sult: Nirali bourne Edited by: MICHAEL on 02/05/23:[id number].Neutrophilic left shift.Clinical correlation necessary.Maged Pena M.D. 02/05/23Pathologist comment added AMENDED REPORT 02/05/23 0937 PATH REV previously reported as: Nirali bourne Serum Treponema species anti body detectionOrdered By: Nat Gomez on 02-01-2023 Treponema sp Ab Ql (S) Non-Reactive [facility] Laboratory - Chemistry and C hemistry - challengeon 01-29-2023 Glucose Ql (U) Negative [facility] Laboratory - Urinalysison Protein Ql (U) Negative [facility] Laboratory - Chemistry and C hemistry - challengeon 01-22-2023 Glucose Ql (U) Negative [facility] Laboratory - Urinalysison Protein Ql (U) Negative [facility] Laboratory - Microbiology an d Antimicrobial susceptibilityon 01-16-2023 SARS-CoV-2 (COVID-19) RNA KEELEY+probe Ql (Unsp spec) Detected [facility] No Panel Informationon 01-16 POC Nasal Swab Influenza A,B Not detected [facility] POC Nasal Swab RSV Not detected [facility] Laboratory - Chemistry and C hemistry - challengeon 01-10-2023 Glucose Ql (U) Negative [facility] Laboratory - Urinalysison Protein Ql (U) Negative [facility] No Panel InformationOrdered By: Paola Voss on 01-10-2023 Group B Streptococcus Culture Group B Beta Streptococcus is not isolated. [facility] Laboratory - Chemistry and C hemistry - challengeon 12-14-2022 Glucose Ql (U) Negative [facility] Laboratory - Urinalysison Protein Ql (U) Negative [facility] Laboratory - Chemistry and C hemistry - challengeOrdered By: Dr. Voss on 11-29-2022 Free T4 [Mass/Vol] 0.84 ng/dL 0.76-1.46 [facility] Laboratory - Chemistry and C hemistry - challengeon 11-29-2022 Glucose Ql (U) Negative [facility] Laboratory - Urinalysison Protein Ql (U) Negative [facility] No Panel InformationOrdered By: Dr. Voss on 11-29-2022 Thyroid Stimulating Hormone (TSH) 0.90 uIU/mL 0.358-3.74 [facility] Absolute lymphocyte countOrd ered By: Niya Armstrong on 11-16-2022 Lymphocytes Auto (Unsp spec) [#/Vol] 2.73 10*3/uL 0.83-4.51 [facility] Basophil percentageOrdered B y: Niya Armstrong on 11-16-2022 Basophils/100 WBC (Bld) 0.6 % 0-1 [facility] Eosinophils/100 WBC (Bld) 2.7 % 0-5 [facility] Neutrophils (Bld) [#/Vol] 10.4 10*3/uL 2.0-7.7 [facility] Neutrophils/100 WBC (Bld) 69.5 % 47-70 [facility] WBC (Bld) [#/Vol] 14.9 10*3/uL 4.4-11.0 [facility] Blood erythrocytes count (nu mber/volume)Ordered By: Niya Armstrong on 11-16-2022 RBC (Bld) [#/Vol] 3.66 10*6/uL 4.2-5.4 [facility] Blood hemoglobin measurement (mass/volume)Ordered By: Niya Armstrong on 11-16-2022 Hemoglobin (Bld) [Mass/Vol] 12.9 g/dL 12.0-15.0 [facility] Blood lymphocytes/100 leukoc ytesOrdered By: Niya Armstrong on 11-16-2022 Lymphocytes/100 WBC (Bld) 18.3 % 19-41 [facility] Blood monocytes/100 leukocyt esOrdered By: Niya Armstrong on 11-16-2022 Monocytes/100 WBC (Bld) 7.0 % 0-10 [facility] Blood platelet mean volumeOr dered By: Niya Armstrong on 11-16-2022 Platelet mean volume (Bld) [Entitic vol] 11.9 fL 6.2-12.0 [facility] Determination of erythrocyte mean corpuscular volume (MCV)Ordered By: Niya Armstrong on 11-16-2022 MCV (RBC) [Entitic vol] 97.3 fL 81-99 [facility] Gestational diabetes screen 1-hour screen with 50g oral glucose loadOrdered By: Niya Armstrong on 11-16-2022 Glucose 1 Hr post 50 g glucose PO [Mass/Vol] 134 mg/dL 70-140 [facility] HIV 1 and HIV-2 antibody ass ay with HIV-1 p24 antigen detectionOrdered By: Niya Armstrong on 11-16-2022 HIV 1+2 Ab+HIV1 p24 Ag IA Ql Non-Reactive Nonreactive [facility] Hematocrit Auto (Bld) [Volum e fraction]Ordered By: Niya Armstrong on 11-16-2022 Hematocrit (Bld) [Volume fraction] 35.6 % 37-47 [facility] Laboratory - Hematology and Cell countsOrdered By: Niya Armstrong on 11-16-2022 Erythrocyte distribution width (RBC) [Entitic vol] 56.6 fL 35.1-43.9 [facility] Erythrocyte distribution width (RBC) [Ratio] 15.9 % 11.6-14.6 [facility] Immature granulocytes/100 WBC (Bld) 1.900 % 0.0-0.9 [facility] Comment on above: IG% - Immature Granu locytes (promyelocytes, myelocytes and metamyelocytes) > 1% indicates that a LEFT SHIFT is Present. MCH (RBC) [Entitic mass] 35.2 pg 27.0-32.0 [facility] Nucleated RBC/100 WBC (Bld) [Ratio] 0.2 % 0-5 [facility] MCHC Auto (RBC) [Mass/Vol]Or dered By: Niya Armstrong on 11-16-2022 MCHC (RBC) [Mass/Vol] 36.2 g/dL 32-36 [facility] Platelets bldOrdered By: Joseph Armstrong on 11-16-2022 Platelets (Bld) [#/Vol] 203 10*3/uL 150-450 [facility] Serum Treponema species anti body detectionOrdered By: Niya Armstrong on 11-16-2022 Treponema sp Ab Ql (S) Non-Reactive [facility] Culture, urineOrdered By: Kieran Armstrong on 10-28-2022 Bacteria identified Cx Nom (U) Positive [facility] Thin prep Papanicolaou smear with manual screeningOrdered By: Niya Armstrong on 10-28-2022 Genital Culture G. vaginalis (Presumptive) [facility] Culture, urineOrdered By: Kieran Armstrong on 10-26-2022 Bacteria identified Cx Nom (U) Positive [facility] Gram stain for investigation of transfusion reactionOrdered By: Niya Armstrong on 10-26-2022 Microscopic observation Gram stain Nom (Unsp spec) [facility] Gram stain for investigation of transfusion reactionOrdered By: Niya Armstrong on 10-25-2022 Microscopic observation Gram stain Nom (Unsp spec) [facility] Laboratory - Chemistry and C hemistry - challengeon 10-25-2022 Glucose Ql (U) Negative [facility] Laboratory - Urinalysison Protein Ql (U) Negative [facility] Thin prep Papanicolaou smear with manual screeningOrdered By: Niya Armstrong on 10-25-2022 Genital Culture G. vaginalis (Presumptive) [facility] Laboratory - Chemistry and C hemistry - challengeon 09-27-2022 Glucose Ql (U) Negative [facility] Laboratory - Urinalysison Protein Ql (U) Negative [facility] Laboratory - Chemistry and C hemistry - challengeOrdered By: Julia Chavez on 08-29-2022 Free T4 [Mass/Vol] 1.00 ng/dL 0.76-1.46 [facility] Laboratory - Chemistry and C hemistry - challengeon 08-29-2022 Glucose Ql (U) Negative [facility] Laboratory - Urinalysison Protein Ql (U) Negative [facility] No Panel InformationOrdered By: Julia Chavez on 08-29-2022 Miscellaneous Test See comment [facility] Comment on above: TEST RESULTS LIMITSA FP, Serum, Open Spina BifidaResults ReportTest Results: *Screen Negative*Gest. Age on Collection Date 16.7 weeksGestat. Age Based On EDDRecalculations are not recommended when gestational dating by LMP and ultrasound are within 10 days.M[age] Age [age] yrRace CaucasianWeight 190 lbsInsulin Dep Diabetes Not provided.Multiple Gestation NoAFP Value 42.0 ng/mLAFP MoM 1.29OSBR Risk 1 [place] 4947 InterpretationInterpretation: Screen NegativeThis result is screen negative for OSB. The AFP MoM calculated is based on the gestational age provided. MS-AFP can identify up to 80% of open neural tube defects. Closed neural tube defects and some open defects may not be detected by this test. This test does not screen for Down Syndrome or Trisomy 18. If screening forDown Syndrome or Trisomy 18 is desired, contact [employer] to discuss available options. The [employer] recommends amniocentesis be offered to women age 35 and older.Comment: Nova Baer, Ph.D., DABCCDirectorReferences: Available Upon Request.Multiples Of Median Cutoffs For AFP ElevationsSingleton 2.5 Black 2.8IDD 2.0 Twins 4.5 Abbreviation DefinitionsIDD - Insulin Dep DiabetesOSBR - Open Spina Bifida RiskFor further inquiries contact [employer] at [phone].This test was developed and its performance characteristicsdetermined by [employer]. It has not been cleared or approvedby the Food and Drug Administration. TESTING PERFORMED AT [facility]. ORIGINAL REPORT ON FILE IN LAB CONTAINS ADDITIONAL TEST SITE INFORMATION. Thyroid Stimulating Hormone (TSH) 0.92 uIU/mL 0.358-3.74 [facility] Laboratory - Chemistry and C hemistry - challengeon 08-08-2022 Glucose Ql (U) Negative [facility] Laboratory - Urinalysison Protein Ql (U) Negative [facility] Absolute lymphocyte countOrd ered By: Dr. Voss on 07-17-2022 Lymphocytes Auto (Unsp spec) [#/Vol] 1.91 10*3/uL 0.83-4.51 [facility] Basophil percentageOrdered B y: Dr. Voss on 07-17-2022 Basophils/100 WBC (Bld) 0.5 % 0-1 [facility] Eosinophils/100 WBC (Bld) 3.1 % 0-5 [facility] Neutrophils (Bld) [#/Vol] 7.0 10*3/uL 2.0-7.7 [facility] Neutrophils/100 WBC (Bld) 71.3 % 47-70 [facility] WBC (Bld) [#/Vol] 9.9 10*3/uL 4.4-11.0 [facility] Blood erythrocytes count (nu mber/volume)Ordered By: Dr. Voss on 07-17-2022 RBC (Bld) [#/Vol] 4.35 10*6/uL 4.2-5.4 [facility] Blood hemoglobin measurement (mass/volume)Ordered By: Dr. Voss on 07-17-2022 Hemoglobin (Bld) [Mass/Vol] 14.3 g/dL 12.0-15.0 [facility] Blood lymphocytes/100 leukoc ytesOrdered By: Dr. Voss on 07-17-2022 Lymphocytes/100 WBC (Bld) 19.4 % 19-41 [facility] Blood monocytes/100 leukocyt esOrdered By: Dr. Voss on 07-17-2022 Monocytes/100 WBC (Bld) 5.0 % 0-10 [facility] Blood platelet mean volumeOr dered By: Dr. Voss on 07-17-2022 Platelet mean volume (Bld) [Entitic vol] 12.4 fL 6.2-12.0 [facility] Determination of erythrocyte mean corpuscular volume (MCV)Ordered By: Dr. Voss on 07-17-2022 MCV (RBC) [Entitic vol] 90.1 fL 81-99 [facility] HIV 1 and HIV-2 antibody ass ay with HIV-1 p24 antigen detectionOrdered By: Dr. Voss on 07-17-2022 HIV 1+2 Ab+HIV1 p24 Ag IA Ql Non-Reactive Nonreactive [facility] Hematocrit Auto (Bld) [Volum e fraction]Ordered By: Dr. Voss on 07-17-2022 Hematocrit (Bld) [Volume fraction] 39.2 % 37-47 [facility] Laboratory - Hematology and Cell countsOrdered By: Dr. Voss on 07-17-2022 Erythrocyte distribution width (RBC) [Entitic vol] 42.7 fL 35.1-43.9 [facility] Erythrocyte distribution width (RBC) [Ratio] 13.0 % 11.6-14.6 [facility] Immature granulocytes/100 WBC (Bld) 0.700 % 0.0-0.9 [facility] Comment on above: IG% - Immature Granu locytes (promyelocytes, myelocytes and metamyelocytes) > 1% indicates that a LEFT SHIFT is Present. MCH (RBC) [Entitic mass] 32.9 pg 27.0-32.0 [facility] Nucleated RBC/100 WBC (Bld) [Ratio] 0 % 0-5 [facility] MCHC Auto (RBC) [Mass/Vol]Or dered By: Dr. Voss on 07-17-2022 MCHC (RBC) [Mass/Vol] 36.5 g/dL 32-36 [facility] No Panel InformationOrdered By: Dr. Voss on 07-17-2022 Hepatitis B Surface Antigen Non-Reactive Nonreactive [facility] Hepatitis C Antibody Non-Reactive Nonreactive [facility] Comment on above: Non Reactive: < 0.8 Equivocal: >/= 0.8 to < 1.0 Reactive: >/= 1.0The CDC recommends that a reactive/equivocal HCV antibody result be followed up by the HCV Nucleic Acid Amplificationtest (104308) Miscellaneous Test Comment MAILED SPECIMEN [facility] Rubella IgG Antibody Reactive Nonreactive [facility] Comment on above: Antibody Results Int erpretation of Immune Status Non Reactive Presumed Non-Immune Equivocal Equivocal Reactive Presumed Immune Thyroid Stimulating Hormone (TSH) 0.66 uIU/mL 0.358-3.74 [facility] Platelets bldOrdered By: Dr. Voss on 07-17-2022 Platelets (Bld) [#/Vol] 220 10*3/uL 150-450 [facility] Serum Treponema species anti body detectionOrdered By: Dr. Voss on 07-17-2022 Treponema sp Ab Ql (S) Non-Reactive [facility] Culture, urineOrdered By: Dr Ernst Voss on 07-13-2022 Bacteria identified Cx Nom (U) Positive [facility] Chlamydia trachomatis rRNA d etection by probe and target amplification methodOrdered By: Dr. Voss on 07-11-2022 C. trachomatis rRNA KEELEY+probe Ql (Unsp spec) Negative Negative [facility] Laboratory - Microbiology an d Antimicrobial susceptibilityOrdered By: Dr. Voss on 07-11-2022 N. gonorrhoeae DNA KEELEY+probe Ql (Unsp spec) Negative Negative [facility] Comment on above: Performed at: =[address] [id number] Director: Mayra Kaba MD, Phone: [phone] Laboratory - Chemistry and C hemistry - challengeOrdered By: Dr. Valera on 04-25-2022 Free T4 [Mass/Vol] 1.14 ng/dL 0.76-1.46 [facility] No Panel InformationOrdered By: Dr. Valera on 04-25-2022 Thyroid Stimulating Hormone (TSH) 2.16 uIU/mL 0.358-3.74 [facility] Operative Reporton 2 Operative Report [facility] ITAL [address] [place], [place] [address] RECORD OF PROCEDURE PATIENT NAME: KATIE ROBB DATE OF : 1990 MED REC #: [id number] PT LOCATION: OR PACU PT TYPE: OPS AGE: 32 SEX: F ADMISSION DATE: 04/12/2022 DATE OF SERVICE: 04/12/2022 SURGEON: Lori Williamson DO ANESTHESIA: General. ANTIBIOTICS: None. SPECIMEN: Polypoid tissue. ESTIMATED BLOOD LOSS: 5 mL. TOTAL INTRAVENOUS FLUIDS: A liter. TOTAL HYSTEROSCOPIC FLUID DEFICIT: Negative 285. INSTRUMENT/NEEDLE/SPONGE COUNT: Correct x2. COMPLICATIONS: None. CONDITION: Stable, transferred to postanesthesia recovery unit. INDICATIONS FOR PROCEDURE: This is a 32-year-old G0 presents with a history of uterine polyps. She is counseled on the benefits and risks of surgery and is aware of the risk of infection, bleeding, and injury to surrounding organs. Patient consents for the procedure. PREPROCEDURE DIAGNOSIS: Uterine polyps. POSTPROCEDURE DIAGNOSIS: Uterine polyps. NAME OF PROCEDURE: Hysteroscopic polypectomy. FINDINGS: Polypoid tissue. DESCRIPTION OF PROCEDURE: After informed consent was obtained, the patient was taken to the OR, where general anesthesia was administered without difficulty. She was placed in the dorsal lithotomy position with legs in Yellofin stirrups. Was prepped and draped in a sterile fashion. Timeout was performed. A pelvic exam was performed. A speculum was placed in the vagina, and the cervix was grasped with a single-tooth tenaculum. The cervix was serially dilated. The operative hysteroscope was then placed the uterine cavity which was insufflated with normal saline. The endometrium was identified with normal tubal ostia bilaterally. The MyoSure was then placed through the operative hysteroscope, and small endometrial polyps tissue was then resected. Hysteroscope was removed. The deficit was collected on the fluid management system. Specimens were sent for pathology. All instruments were removed, and the procedure was terminated. There were no complications. Needle, sponge, and instrument counts were correct x2. The patient was awakened and taken to recovery room in stable condition. Lori Williamson DO [id number] SSI File#: [id number] CC: Lori Williamson DO [facility] Surgical Pathology Depar tmenton 04-12-[address] [facility] Surgical Pathology Department Name KATIE ROBB Pathologist: WILLIAM WARREN MD Date of Procedure: 04/12/2022 Date Received: 04/13/2022 Date Reported 04/18/2022 Submitting Physician: LORI WILLIAMSON DO Location: [facility] [place] Copy To/Referring/Attending: Pt States No PCP Other External # [id number] FINAL DIAGNOSIS A. SPECIMEN LABELED POLYPOID TISSUE: -- FRAGMENTS OF INACTIVE ENDOMETRIUM WITH DECIDUALIZED STROMA, COMPATIBLE WITH PROGESTIN EFFECT. afn Electronically Signed Out By WILLIAM WARREN MD/AFN By the signature on this report, the individual or group listed as making the Final Interpretation/Diagnosis certifies that they have reviewed this case. Diagnostic interpretation performed at [address] [place] [address] Clinical History: polyps Specimens Submitted As: A: POLYPOID TISSUE Other Case Numbers [id number] Gross Description: Received in formalin in a gauze sock, labeled with the patient's name, hospital number and polypoid tissue, are multiple irregular fragments of lópez, rubbery tissue and blood clot aggregating to 1.3 x 1.0 x 0.3 cm. The specimen is submitted in toto in one cassette. LMP lmp/04/14/2022 [facility] Department of Pathology [address] [place] [address] Normal [facility] Comment on above: Performed By: #### U [facility] #### [facility] Surgical Pathology Department [address] [place] [address] Laboratory - Chemistry and C hemistry - challengeon 03-27-2022 Free T4 [Mass/Vol] 1.03 ng/dL 0.76-1.46 [facility] Work Phone: No Panel Informationon 03-27 Thyroglobulin Antibody < 1.0 IU/mL 0.0-0.9 [facility] Work Phone: Comment on above: Thyroglobulin Antibo dy measured by [employer] EvisorsMethodologyPerformed at: CB - [facility] [id number] [place], [place] [id number] Director: Robert Gonzalez PhD, Phone: [phone] Thyroid Stimulating Hormone (TSH) 2.88 uIU/mL 0.358-3.74 [facility] Work Phone: [phone] Serum or plasma thyroperoxid ase antibody assay (units/volume)on 03-27-2022 TPO Ab Qn [IU]/mL 0-34 [facility] Work Phone: [phone] Absolute lymphocyte counton 03-23-2022 Lymphocytes Auto (Unsp spec) [#/Vol] 1.93 10*3/uL 0.83-4.51 [facility] Work Phone: [phone] Absolute reticulocyte counto n 03-23-2022 Reticulocytes (Bld) [#/Vol] 0.00 10*3/uL 0-5 [facility] Work Phone: [phone] Basophil percentageon 2021 Basophil percentage 3.1 mg/dL 2.5-4.9 [facility] Work Phone: [phone] Bilirubin [Mass/Vol] 0.70 mg/dL 0.20-1.00 [facility] Work Phone: [phone] Comment on above: For patients on eltr ombopag therapy, use of Dimension Spencer TBIL is not recommended. Chloride [Moles/Vol] 108 mmol/L 98-107 [facility] Work Phone: [phone] Cholesterol [Mass/Vol] 140 mg/dL <200 [facility] Work Phone: [phone] Comment on above: <200 mg/dL Desirable 200-240 mg/dL Borderline >240 mg/dL High Risk Glucose [Mass/Vol] 91 mg/dL 74-106 [facility] Work Phone: [phone] Neutrophils (Bld) [#/Vol] 3.8 10*3/uL 2.0-7.7 [facility] Work Phone: [phone] Potassium [Moles/Vol] 4.3 mmol/L 3.5-5.1 [facility] Work Phone: Protein [Mass/Vol] 7.1 g/dL 6.4-8.2 [facility] Work Phone: Sodium [Moles/Vol] 138 mmol/L 136-145 [facility] Work Phone: Triglyceride [Mass/Vol] 84 mg/dL <199 [facility] Work Phone: Comment on above: The drugs N-Acetylcy steine and Metamizole may falsely depress this assay.Serum Triglycerides Reference Interval Normal <150 mg/dL Borderline high 150 - 199 mg/dL High 200 - 499 mg/dL Very High > or = 500 mg/dL WBC (Bld) [#/Vol] 6.8 10*3/uL 4.4-11.0 [facility] Work Phone: Bilirubin Test strip Ql (U)o n 03-23-2022 Bilirubin Ql (U) Negative Negative [facility] Work Phone: Blood erythrocytes count (nu mber/volume)on 03-23-2022 RBC (Bld) [#/Vol] 4.44 10*6/uL 4.2-5.4 [facility] Work Phone: Blood hemoglobin measurement (mass/volume)on 03-23-2022 Hemoglobin (Bld) [Mass/Vol] 14.4 g/dL 12.0-15.0 [facility] Work Phone: Blood platelet mean volumeon 03-23-2022 Platelet mean volume (Bld) [Entitic vol] 12.1 fL 6.2-12.0 [facility] Work Phone: Determination of erythrocyte mean corpuscular volume (MCV)on 03-23-2022 MCV (RBC) [Entitic vol] 89.6 fL 81-99 [facility] Work Phone: Direct bilirubinon Bilirubin.direct [Mass/Vol] 0.14 mg/dL 0.00-0.30 [facility] Work Phone: Hematocrit Auto (Bld) [Volum e fraction]on 03-23-2022 Hematocrit (Bld) [Volume fraction] 39.8 % 37-47 [facility] Work Phone: [phone] Ketones Test strip Ql (U)on 03-23-2022 Ketones Ql (U) Negative Negative [facility] Work Phone: [phone] Laboratory - Chemistry and C hemistry - challengeon 03-23-2022 Free T4 [Mass/Vol] 1.04 ng/dL 0.76-1.46 [facility] Work Phone: ALP [Catalytic activity/Vol] 59 U/L 45-117 [facility] Work Phone: ALT [Catalytic activity/Vol] 16 U/L 13-56 [facility] Work Phone: Cholesterol.total/Chol esterol in HDL [Mass ratio] 2.50 {ratio} [facility] Work Phone: CO2 [Moles/Vol] 23.0 mmol/L 21.0-32.0 [facility] Work Phone: Globulin (S) [Mass/Vol] 3.5 g/dL 2.2-4.2 [facility] Work Phone: [phone] Urea nitrogen/Creatinine [Mass ratio] 13.6 mg/mg 10-20 [facility] Work Phone: [phone] Laboratory - Hematology and Cell countson 03-23-2022 Erythrocyte distribution width (RBC) [Entitic vol] 41.6 fL 35.1-43.9 [facility] Work Phone: Erythrocyte distribution width (RBC) [Ratio] 12.8 % 11.6-14.6 [facility] Work Phone: MCH (RBC) [Entitic mass] 32.4 pg 27.0-32.0 [facility] Work Phone: Nucleated RBC/100 WBC (Bld) [Ratio] 0 % 0-5 [facility] Work Phone: MCHC Auto (RBC) [Mass/Vol]on 03-23-2022 MCHC (RBC) [Mass/Vol] 36.2 g/dL 32-36 [facility] Work Phone: Nitrite Test strip Ql (U)on 03-23-2022 Nitrite Ql (U) Negative Negative [facility] Work Phone: No Panel Informationon 03-23 Thyroid Stimulating Hormone (TSH) 2.58 uIU/mL 0.358-3.74 [facility] Work Phone: [phone] Estimated GFR (MDRD) Amer 88 mL/min >60 [facility] Work Phone: Comment on above: GFR Calc Estimated GFR (MDRD) Non-Af Amer 73 mL/min >60 [facility] Work Phone: Comment on above: Non- GFR Calc Platelets bldon 03-23-2022 Platelets (Bld) [#/Vol] 211 10*3/uL 150-450 [facility] Work Phone: [phone] Protein Test strip Ql (U)on 03-23-2022 Protein Ql (U) Negative Negative [facility] Work Phone: [phone] Segmented neutrophils/100 WB C Auto (Bld)on 03-23-2022 Segmented neutrophils/100 WBC (Bld) 56.2 % 47-70 [facility] Work Phone: [phone] Serum or plasma albumin viola urement (mass/volume)on 03-23-2022 Albumin [Mass/Vol] 3.6 g/dL 3.2-5.0 [facility] Work Phone: [phone] Serum or plasma albumin/glob ulin mass ratioon 03-23-2022 Albumin/Globulin [Mass ratio] 1.0 {ratio} 0.9-2.4 [facility] Work Phone: [phone] Serum or plasma calcium viola urement (mass/volume)on 03-23-2022 Calcium [Mass/Vol] 9.0 mg/dL 8.5-10.1 [facility] Work Phone: [phone] Serum or plasma cholesterol in HDL measurement (mass/volume)on 03-23-2022 Cholesterol in HDL [Mass/Vol] 57 mg/dL >40 [facility] Work Phone: Comment on above: The drugs N-Acetylcy steine and Metamizole may falsely depress this assay. Reference Range HDL <40 mg/dL Low HDL Cholesterol HDL >or= 60 mg/dL High HDL Cholesterol Serum or plasma cholesterol in VLDL measurement (mass/volume)on 03-23-2022 Cholesterol in VLDL [Mass/Vol] 17 mg/dL 5-40 [facility] Work Phone: Serum or plasma creatinine m easurement (mass/volume)on 03-23-2022 Creatinine [Mass/Vol] 0.96 mg/dL 0.55-1.02 [facility] Work Phone: Comment on above: The validity of the calculated GFR & GFRAA in patients over 70 years has not been determined. Clinical correlation is essential. Serum or plasma low density lipoprotein (LDL) cholesterol measurement (mass/volume)on 03-23-2022 Cholesterol in LDL [Mass/Vol] 66 mg/dL 0-130 [facility] Work Phone: Serum or plasma urea nitroge n measurement (mass/volume)on 03-23-2022 Urea nitrogen [Mass/Vol] 13 mg/dL 7-18 [facility] Work Phone: Serum or plasma uric acid me asurement (mass/volume)on 03-23-2022 Urate [Mass/Vol] 4.9 mg/dL 2.6-6.0 [facility] Work Phone: Comment on above: The drugs N-Acetylcy steine and Metamizole may falsely depress this assay. Thin prep Papanicolaou smear with manual screeningon 03-23-2022 Thin prep Papanicolaou smear with manual screening 14 U/L 15-37 [facility] Work Phone: Thin prep Papanicolaou smear with manual screening 7 5-15 [facility] Work Phone: Thin prep Papanicolaou smear with manual screening 216 U/L 84-246 [facility] Work Phone: Urine blood detectionon 03-11 RBC Ql (U) Negative Negative [facility] Work Phone: Urine clarityon 03-23-2022 Clarity (U) Clear Clear [facility] Work Phone: Urine color determinationon 03-23-2022 Color (U) Yellow Yellow [facility] Work Phone: Urine glucose detectionon Glucose Ql (U) Normal mg/dl Normal [facility] Work Phone: Urine leukocyte esterase det ection by dipstickon 03-23-2022 Leukocyte esterase Test strip Ql (U) 100 /ul Negative [facility] Work Phone: Urine pHon 03-23-2022 pH (U) 6.5 [pH] 5.0 - 8.0 [facility] Work Phone: Urine specific gravity measu rementon 03-23-2022 Specific gravity (U) [Rel density] 1.010 1.002-1.030 [facility] Work Phone: Urobilinogen Auto test strip Ql (U)on 03-23-2022 Urobilinogen Ql (U) Normal mg/dl Normal [facility] Work Phone: C diff Tox gens Stl Ql KEELEY+p robeon 10-28-2021 C. difficile toxin genes KEELEY+probe Ql (Stl) Negative Normal Negative for C. difficile toxin by PCR [facility] Comment on above: Order Comment: Speci men Type: STOOL SPECIMEN Ordering Facility: [facility] Address: [address] [place] [id number] Performed By: #### 5 [id number] #### [facility] CLIA [id number] [address] [id number] [place] [facility] CNOVon 10-25-2021 CNOV Office Visit ([place] ) -------- KATIE ROBB ([id number]) 1990 F CHT Date Time Provider Department 10/25/21 4:55 PM ELIE GUEVARA During your visit today, we recorded the following information about you: Temperature Pulse Respiration Blood pressure 97.2 degrees 66/minute 12/minute 106/70 Weight Last Period 74.3 kg 10/25/21 Elie Guevara PA-C 10/25/2021 6:25 PM Signed 10/25/2021 Patient presents with: Diarrhea: x5 days SUBJECTIVE: This is a 31 year old that is here today for diarrhea x 10 days. No n/v. Denies fever, chills, sweats, or fatigue. No abdominal pain, back pain, heart burn symptoms, or UTI symptoms. She has no personal or FH of IBS, crohns. Colitis, or other intestinal disorders. No recent outside of [place] travel, new foods/restaurants, or camping/out door eating. It started while at a wedding in [place]. No camping or well-water use. 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 No recent antibiotics. No sinus symptoms, cough, ZHANG, or rash. Patient denies wheezing, shortness of breath, increased WOB, or chest pain. No other URI symptoms. No other sick symptoms. Pain on scale of 0-10 with 0 being no pain and 10 being greatest pain: 0 Nothing makes the symptoms better. Nothing makes them worse. Self-treatment:. none The severity is mild and the symptoms are not improving. The patient did not have a similar problem in the last 3 months. The patient did not take any antibiotics in the last 3 months. Barriers to learning: none. Reviewed meds, OTCs, herbals or supplements. Reviewed allergies, medications, social history, and past medical history. PAST MEDICAL HISTORY Diagnosis Date - Autoimmune disorder (HCC) Reynaud's , +PREETHI - Broken bones right great toe, right wrist, nose - NEGATIVE MEDICAL HISTORY ALLERGIES Seasonal Allergies MEDICATIONS Current Outpatient Medications Medication Sig - acetaminophen (TYLENOL) 325 mg tablet Take 2 tablets by mouth every 6 hours as needed for pain. - ibuprofen (MOTRIN) 600 mg tablet Take 1 tablet by mouth every 6 hours. - ondansetron (ZOFRAN) 4 mg tablet Take 1 tablet by mouth every 8 hours as needed for nausea/vomiting. - loratadine (CLARITIN) 10 mg tablet Take 1 tablet by mouth once daily as needed for Cold/Allergy Symptoms. No current facility-administered medications for this visit. Medications and allergies reviewed by this provider. SOCIAL HISTORY Social History Tobacco Use - Smoking status: Never Smoker - Smokeless tobacco: Never Used Vaping Use - Vaping Use: Never used Substance Use Topics - Alcohol use: Yes Comment: occ - Drug use: No REVIEW OF SYSTEMS Review of Systems ROS: constitutional-neg, HENT-neg, Eyes- neg, heart-neg, respiratory-neg, GI-diarrhea, -neg, skin-neg, lymph-neg, MSK- neg, All systems neg except as noted above in HPI. OBJECTIVE: BP 106/70 Pulse 66 Temp 36.2 ?C (97.2 ?F) (Temporal) Resp 12 Wt 74.3 kg (163 lb 12.8 oz) LMP 10/25/2021 (Exact Date) SpO2 100% BMI 25.65 kg/m? . Vital signs reviewed by this provider. Physical Exam AAOx3, no acute distress, patient is pleasant, well groomed, dressed appropriately. General: WD, WN, NAD, alert. HEENT: No facial erythema or swelling. Eyes: PERRL. EOMI. No erythema or discharge. Abdomen: Hyperactive BS x 4 quads, soft, nondistended, NT, Newell's sign- negative, McBurney's point- negative, Psoas and Obturator signs- negative, no masses or organomegaly, no rebound tenderness or guarding. No [place] or Engel Dillard's sign. No CVA tenderness to percussion. Skin: no rash noted, cap refill <3sec, normal skin turgor noted. ASSESSMENT/PLAN: 1. 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 DIFFICILE PCR - ENTERIC BACTERIAL PANEL BY PCR - CRYPTOSPORIDIUM AND GIARDIA ANTIGENS BY EIA - Once stool studies samples are given, if she wants to try a course of antibiotics for travelers diarrhea we could try (ie Cipro or Azithromycin). She will call back. - Declined GI consult at this time - Keep PCP appt in December Discussed likely viral nature Encourage fluids, rest. [place] foods- Bread, crackers, rice No spicy, caffeine, dairy Constant sips- water, Gatorade, Francisca Abbi, Popsicles Tylenol and Motrin for pain and fever. If you have a fever rotate between the Tylenol and Motrin every 3 hours. If you cannot drink or keep down fluids- go to ER for dehydration. If you have worsening abdominal pain- go to ER Call PCP if sx worsen or no better. If symptoms worsen, or new symptoms develop go to ER. If you have worsening of breathing or breathing changes- go to ER. If you have persistent fever unrelieved by Tylenol/Motrin- go to the ER. Discussed all red flag symptoms and reasons to go to ER No further questions. Follo (more content not included)... Normal [facility] Op Noteon 07-21-2021 Op Note Operative Note Department of Obstetrics and Gynecology Patient: Katie Robb : 1990 Date of Procedure: 07/21/21 Pre-operative Diagnosis: 31 y.o. female , Ovarian Follicles Post-operative Diagnosis: Same Procedure: Ultrasound Guided Transvaginal Follicular Aspiration, Oocyte Retrieval Surgeon: Dr. Valera Fish Salter(s):Dr. Shin Anesthesia: MAC Findings: Multiple Ovarian Follicles Total IV fluids/Blood products: 200 ml crystalloid Estimated blood loss: Minimal Drains: none Specimens: Follicular fluid, sent to IVF Lab for oocyte ID and counting Complications: none Condition: good, transferred to post anesthesia recovery History and Indication: Patient presents for transvaginal follicle aspiration. Recently undergone superovulation with injectable gonadotropins. Informed consent was obtained from the patient to include but not be limited to risks of infection, bleeding, injury to bowel, bladder, blood vessels, ureters, and uterus. The patient has consented to the procedure, acknowledging the risks described to her. Procedure: The patient was taken back to the procedure room and placed in dosal lithotomy position. She was prepped and draped in standard sterile fashion. A vaginal ultrasound probe with needle guide was placed into her vagina and ovarian follicles were noted. All visible follicles were aspirated under ultrasound needle guidance. There was no bleeding from the ovaries at the termination of the procedure. The vaginal mucosa was inspected and bleeding controlled. At the termination of the procedure, hemostasis was excellent. The procedure was deemed complete. The patient was awakened from anesthesia and taken to post-procedure recovery in good condition. Sponge and instrument counters were correct. Patient tolerated the procedure well. Christina Valera MD 07/21/2021, 9:37 AM Normal [facility] CNCOon 06-13-2021 CNCO Letter Text Normal [facility] CULTURE URINEon 06-03-2021 CULTURE URINE CULTURE URINE --> Status: F Normal urogenital hiren present. Normal [facility] Comment on above: Performed By: #### C /UR #### [facility] [employer] [address] [place] [phone] CT Abdomen/Pelvis w/ Contras ton 06-01-2021 CT Abdomen/Pelvis w/ Contrast Patient Name: KATIE ROBB Computed Tomography ACCESSION EXAM DATE/TIME PROCEDURE ORDERING PROVIDER [id number] 06/01/2021 16:[address] Abdomen/Pelvis w/ IV CHERIE SESAY Contrast (IV Onl CPT code 69759 [id number] Reason For Exam (CT Abdomen/Pelvis w/ IV Contrast (IV Onl) recent surgery fever Report CT ABDOMEN AND PELVIS CLINICAL INDICATION: recent surgery fever TECHNIQUE: CT scan of the abdomen and pelvis with IV contrast. Multiplanar reformations. COMPARISON: None FINDINGS: Tiny left pleural effusion. Free intraperitoneal gas compatible with recent surgery. Liver shows no significant abnormality. Gallbladder and biliary tree appear normal. Spleen is mildly enlarged, 14 cm in maximal length. No focal lesion seen. Adrenal glands show no significant abnormality. No significant renal abnormality. Pancreas shows no significant abnormality. Abdominal aorta is nonaneurysmal. There is soft tissue gas in the abdominal wall. Status post appendectomy. Numerous unopacified small bowel loops in the pelvis. There is a small amount of pelvic hemorrhage. No discrete abscess seen. IMPRESSION: 1. No abscess seen. Unopacified bowel loops in the pelvis, there is a small amount of pelvic hemorrhage. No abscess seen. 2. Mildly enlarged spleen of uncertain significance. Report Dictated on Workstation: DONNIE Final Dictating Physician: MD YAO, RENATO Graham Signed Date and Time: 06/01/2021 5:58 pm Signed by: MD SAMAYOA JOHN R Transcribed Date and Time: 06/01/2021 6:00 Normal [facility] Comp Metabolic Panelon 06-01 Calcium [Mass/Vol] 9.4 mg/dL Normal 8.4-10.4 [facility] Comment on above: Performed By: #### C MP3, HEMDF #### [facility] [address] [place] [address] Glucose [Mass/Vol] 106 mg/dL High 70-100 [facility] Comment on above: Performed By: #### C MP3, HEMDF #### [facility] [address] [place] [address] ALP [Catalytic activity/Vol] 52 U/L Normal 38-126 [facility] Comment on above: Performed By: #### C MP3, HEMDF #### [facility] [address] [place] [address] ALT [Catalytic activity/Vol] 17 U/L Normal 0-34 [facility] Comment on above: Result Comment: The ALT test is performed by an updated assay method. Please note that the reference intervals have been changed and are now sex specific. Performed By: #### C MP3, HEMDF #### [facility] [address] [place] [address] Anion gap [Moles/Vol] 3 mmol/L Normal 3-13 [facility] Comment on above: Performed By: #### C MP3, HEMDF #### [facility] [address] [place] [address] AST [Catalytic activity/Vol] 42 U/L Normal 15-46 [facility] Comment on above: Performed By: #### C MP3, HEMDF #### [facility] [address] [place] [address] Bilirubin [Mass/Vol] 1.5 mg/dL High 0.2-1.3 [facility] Comment on above: Performed By: #### C MP3, HEMDF #### [facility] [address] [place] [address] CO2 [Moles/Vol] 24 mmol/L Normal 22-30 [facility] Comment on above: Performed By: #### C MP3, HEMDF #### [facility] [address] [place] [address] Creatinine [Mass/Vol] 0.71 mg/dL Normal 0.52-1.25 [facility] Comment on above: Performed By: #### C MP3, HEMDF #### [facility] [address] [place] [address] eGFR OTHER > 90.0 Normal >60 [facility] Comment on above: Result Comment: KDIG O guidelines provide the following GFR categories: Stage GFR(ml/min/1.73 m2) Terms G1 >=90 Normal or high G2 60-89 Mildly decreased* G3a 45-59 Mildly to moderately decreased G3b 30-44 Moderately to severely decreased G4 15-29 Severely decreased G5 <15 Kidney failure *Relative to young adult level. In the absence of evidence of kidney damage, neither GFR category G1 nor G2 fulfill the criteria for CKD. The CKD-EPI equation is validated in individuals 18 years of age and older. Currently the best equation for estimating glomerular filtration rate (GFR) from serum creatinine in children is the Bedside Chin equation. It is less accurate in patients with extremes of muscle mass, restriction of dietary protein, ingestion of creatine, extra-renal metabolism of creatinine, or treatment with medications that affect renal tubular creatinine secretion. Performed By: #### C MP3, HEMDF #### [facility] [address] [place] [address] GFR/1.73 sq M.predicted among blacks MDRD (S/P/Bld) [Vol rate/Area] mL/min/{1.73_m2} Normal >60 [facility] Comment on above: Performed By: #### C MP3, HEMDF #### [facility] [address] [place] [address] Protein [Mass/Vol] 7.1 g/dL Normal 6.3-8.2 [facility] Comment on above: Performed By: #### C MP3, HEMDF #### [facility] [address] [address] Urea nitrogen [Mass/Vol] 9 mg/dL Normal 9-20 [facility] Comment on above: Performed By: #### C MP3, HEMDF #### [facility] [address] [place] [address] Potassium [Moles/Vol] 4.6 mmol/L Normal 3.5-5.1 [facility] Comment on above: Performed By: #### C MP3, HEMDF #### [facility] [address] [place] [address] Albumin [Mass/Vol] 4.1 g/dL Normal 3.5-5.0 [facility] Comment on above: Performed By: #### C MP3, HEMDF #### [facility] [address] [place] [address] Sodium [Moles/Vol] 136 mmol/L Normal 135-145 [facility] Comment on above: Performed By: #### C MP3, HEMDF #### [facility] [address] [place] [address] Chloride [Moles/Vol] 109 mmol/L High 98-107 [facility] Comment on above: Performed By: #### C MP3, HEMDF #### [facility] [address] [place] [address] Complete Urinalysison 2020 Bacteria Moderate (6-50) Abnormal Negative [facility] Comment on above: Result Comment: . Performed By: #### C UA2, HCGUR #### [facility] [address] [place] [address] RBC, Urine 0 - 2 Normal 0-2 [facility] Comment on above: Result Comment: . Performed By: #### C UA2, HCGUR #### [facility] [address] [place] [address] Squamous Epithelial 0 - 2 Normal 3-5 [facility] Comment on above: Result Comment: . Performed By: #### C UA2, HCGUR #### [facility] [address] [place] [address] VOLUME, URINE 8-12 ml Normal [facility] Comment on above: Result Comment: . Performed By: #### C UA2, HCGUR #### [facility] [address] [place] [address] WBC, Urine 3 - 5 Normal 0-5 [facility] Comment on above: Result Comment: . Performed By: #### C UA2, HCGUR #### [facility] [address] [place] [address] Appearance (U) Clear Normal Clear [facility] Comment on above: Result Comment: . Performed By: #### C UA2, HCGUR #### [facility] [address] [place] [address] Bilirubin,Urine Negative Normal Negative [facility] Comment on above: Result Comment: . Performed By: #### C UA2, HCGUR #### [facility] [address] [place] [address] Color (U) LIGHT YELLOW Normal Lt. Yellow [facility] Comment on above: Result Comment: . Performed By: #### C UA2, HCGUR #### [facility] [address] [place] [address] Glucose Ql (U) Normal Normal Normal (<70) [facility] Comment on above: Result Comment: . Performed By: #### C UA2, HCGUR #### [facility] [address] [place] [address] Ketone,Urine Negative Normal Negative [facility] Comment on above: Result Comment: . Performed By: #### C UA2, HCGUR #### [facility] [address] [place] [address] Leukocytes,Urine 75 Joaquim/uL Abnormal Negative [facility] Comment on above: Result Comment: . Performed By: #### C UA2, HCGUR #### [facility] [address] [place] [address] Nitrites,Urine Negative Normal Negative [facility] Comment on above: Result Comment: . Performed By: #### C UA2, HCGUR #### [facility] [address] [place] [address] Occult Blood,Urine 0.5 mg/dL Abnormal Negative [facility] Comment on above: Result Comment: . Performed By: #### C UA2, HCGUR #### [facility] [address] [place] [address] pH,Urine 7.0 Normal 5.0-8.0 [facility] Comment on above: Result Comment: . Performed By: #### C UA2, HCGUR #### [facility] [address] [place] [address] Specific Maxton,Urine 1.007 Normal 1.005 - 1.030 [facility] Comment on above: Result Comment: . Performed By: #### C UA2, HCGUR #### [facility] [address] [place] [address] Total Protein,Urine Negative Normal Negative [facility] Comment on above: Result Comment: . Performed By: #### C UA2, HCGUR #### [facility] [address] [place] [address] Urobilinogen,Urine Normal Normal Normal (0-1) [facility] Comment on above: Result Comment: . Performed By: #### C UA2, HCGUR #### [facility] [address] [place] [address] HCG,Urine Qualon 06-01-2021 Beta HCG ( test) Ql (U) Negative Normal Negative [facility] Comment on above: Result Comment: Plea se note: Very dilute urine specimens, as indicated by a low specific gravity, may not contain registration representative levels of hCG. If is still suspected, a first morning urine specimen should be collected 48 hours later and tested. is the most common reason for HCG in urine, although choriocarcinoma, hydatidiform mole, and certain nontropho- blastic malignancies also result in detectable urinary HCG levels. Sensitivity = 20mIU/mL. Performed By: #### C UA2, HCGUR #### [facility] [address] [place] [address] Hemogram w/ Autodiffon 06-01 Abs Baso Cnt 0.1 10*3/uL Normal 0.0-0.2 [facility] Comment on above: Performed By: #### C MP3, HEMDF #### [facility] [address] [place] [address] Abs Neutrophile Cnt 6.3 10*3/uL Normal 1.8-7.0 [facility] Comment on above: Performed By: #### C MP3, HEMDF #### [facility] [address] [place] [address] Basophils/100 WBC (Bld) 0.6 % Normal 0.0-2.0 [facility] Comment on above: Performed By: #### C MP3, HEMDF #### [facility] [address] [place] [address] Eosinophils (Bld) [#/Vol] 0.2 10*3/uL Normal 0.0-0.5 [facility] Comment on above: Performed By: #### C MP3, HEMDF #### [facility] [address] [place] [address] Eosinophils/100 WBC (Bld) 2.1 % Normal 1.0-6.0 [facility] Comment on above: Performed By: #### C MP3, HEMDF #### [facility] [address] [place] [address] Erythrocyte distribution width (RBC) [Ratio] 13.8 % Normal 11.5-14.5 [facility] Comment on above: Performed By: #### C MP3, HEMDF #### [facility] [address] [place] [address] Granulocytes/100 WBC (Bld) 77.8 % Normal 40.0-80.0 [facility] Comment on above: Performed By: #### C MP3, HEMDF #### [facility] [address] [place] [address] Hematocrit (Bld) [Volume fraction] 30.9 % Low 35.0-47.0 [facility] Comment on above: Performed By: #### C MP3, HEMDF #### [facility] [address] [place] [address] Hemoglobin (Bld) [Mass/Vol] 10.8 g/dL Low 11.7-16.0 [facility] Comment on above: Performed By: #### C MP3, HEMDF #### [facility] [address] [place] [address] Lymphocytes (Bld) [#/Vol] 0.8 10*3/uL Low 1.0-4.3 [facility] Comment on above: Performed By: #### C MP3, HEMDF #### [facility] [address] [place] [address] Lymphocytes/100 WBC (Bld) 9.7 % Low 20.0-40.0 [facility] Comment on above: Performed By: #### C MP3, HEMDF #### [facility] [address] [place] [address] MCH (RBC) [Entitic mass] 31.8 pg Normal 26.0-34.0 [facility] Comment on above: Performed By: #### C MP3, HEMDF #### [facility] [address] [place] [address] MCHC 35.1 % Normal 32.0-36.0 [facility] Comment on above: Performed By: #### C MP3, HEMDF #### [facility] [address] [place] [address] MCV (RBC) [Entitic vol] 90.5 fL Normal 79.0-98.0 [facility] Comment on above: Performed By: #### C MP3, HEMDF #### [facility] [address] [place] [address] Monocytes (Bld) [#/Vol] 0.8 10*3/uL Normal 0.0-0.8 [facility] Comment on above: Performed By: #### C MP3, HEMDF #### [facility] [address] [place] [address] Monocytes/100 WBC (Bld) 9.8 % Normal 2.0-10.0 [facility] Comment on above: Performed By: #### C MP3, HEMDF #### [facility] [address] [place] [address] Platelet mean volume (Bld) [Entitic vol] 9.5 fL Normal 7.4-10.4 [facility] Comment on above: Performed By: #### C MP3, HEMDF #### [facility] [address] [place] [address] Platelets (Bld) [#/Vol] 188 10*3/uL Normal 140-440 [facility] Comment on above: Performed By: #### C MP3, HEMDF #### [facility] [address] [place] [address] RBC (Bld) [#/Vol] 3.41 10*6/uL Low 3.80-5.20 [facility] Comment on above: Performed By: #### C MP3, HEMDF #### [facility] [address] [place] [address] WBC (Bld) [#/Vol] 8.1 10*3/uL Normal 3.6-10.7 [facility] Comment on above: Performed By: #### C MP3, HEMDF #### [facility] [address] [place] [address] SARS-CoV-2, Flu A/B and RSVo n 06-01-2021 SARS-CoV-2 (COVID-19) RNA KEELEY+probe Ql (Unsp spec) SARS-CoV-2 --> Status: F Not Detected. Flu A PCR --> Status: F Not Detected. Flu B PCR --> Status: F Not Detected. RSV PCR --> Status: F Not Detected. Expected Result: Not Detected _ Method: Real-time, RT-PCR This assay was developed by [employer] and distributed under an Emergency Use Authorization (EUA) granted by the FDA for the qualitative detection of nucleic acids from SARS-CoV-2, Influenza A, Influenza B, and Respiratory Syncytial Virus. Provider and patient fact sheets can be found at https://www.fda.gov/medi a/617032/download and https://www.fda.gov/medi a/241465/download. Expected Result: Not Detected _ Method: Real-time, RT-PCR This assay was developed by [employer] and distributed under an Emergency Use Authorization (EUA) granted by the FDA for the qualitative detection of nucleic acids from SARS-CoV-2, Influenza A, Influenza B, and Respiratory Syncytial Virus. Provider and patient fact sheets can be found at https://www.fda.gov/medi a/733578/download and https://www.fda.gov/medi a/917390/download. Normal [facility] Comment on above: Performed By: #### C VFLR #### [facility] [address] [place] [address] , [address] Hemoglobinon 05-27-2021 Hemoglobin (Bld) [Mass/Vol] 10.5 g/dL Low 11.7-16.0 [facility] Comment on above: Performed By: #### H EMGB #### [facility] [address] [place] [address] Op Noteon 05-27-2021 Op Note Operative Note Department of Obstetrics and Gynecology Patient: Katie Robb : 1990 Date of Procedure: 05/27/21 Pre-operative Diagnosis: 1. Endometriosis 2. Pelvic pain 3. Bilateral adnexal masses Post-operative Diagnosis: Same, endometriosis Procedure: Laparoscopic resection of endometriosis, bilateral ovarian cystectomy, lysis of adhesions, ureterolysis Colorectal surgery performed, Laparoscopic Lysis of Adhesions, Laparoscopic resection of perirectal nodule, Laparoscopic Appendectomy, Flexible sigmoidoscopy Surgeon: Dr. Golden Fish Salter(s): Dr. Thompson, Dr. Shin Anesthesia: General Findings: Bilateral kissing endometriomas, left approximately 6cm, right approximately 3 to 4 cm. The ovaries were densely adherent to their respective sidewalls and ovarian fossa. The uterus appeared normal shape and had a significant amount of inflammatory rind on the posterior aspect. Large bowel adhesions to the left ovary. Endometriosis powder burn ricci on bilateral sidewalls and in the posterior cul-de-sac underneath the uterosacral ligaments. Normal anterior bladder peritoneum. Normal-appearing appendix. Normal-appearing stomach liver gallbladder and diaphragm contours with no evidence of extra pelvic endometriosis. Chromopertubation was spill only on the right side. Total IV fluids/Blood products: 1000 ml crystalloid Urine Output: 600 ml Estimated blood loss: 150 ml Drains: None Specimens: Left ovarian cyst, right ovarian cyst, left pelvic sidewall, right pelvic sidewall, anterior perirectal nodule, appendix Instrument and Sponge Count: Correct x 2 Complications: None Condition: Stable, transferred to post anesthesia recovery Procedure: The patient was brought to the operating room with running IV fluids. General anesthesia was administered without difficulty. The patient was placed in a dorsal lithotomy position with Yellofin stirrups. She was then prepped and draped in the usual sterile fashion. A weighted speculum was inserted into the vagina, and the anterior lip of the cervix was grasped with a single-tooth tenaculum. The cervix was dilated to allow placement of a 6 IBETH uterine manipulator. A muro catheter was then placed, and clear urine was noted. The surgeon's gloves were changed, and attention was directed to the laparoscopic portion of the procedure. A 5 mm skin incision was made at Orlando's point. A Veres needle was inserted without difficulty. A low opening pressure validated correct intraperitoneal placement. The pneumoperitoneum was created with CO2 gas to a pressure of 15 mmHg. A 5 mm Optiview trocar was used for visual entry at this site. Entry site was inspected and revealed no evidence of visceral or vascular injury. A 10mm bladed balloon trochar was inserted the umbilicus under direct visualization. One 5 mm accessory port was placed in the left and 2 5 mm accessory right lower quadrants ports were placed under direct visualization. We then jointly turned our attention to the pelvis. There were bilateral endometriomas encasing ovaries with bowel adherent to the inferior portion of the left ovary very slightly. These adhesions were bluntly dissected away. There were adhesions clear and filmy to the posterior uterus which were taken down with the harmonic. The ovary was noted to be adherent to the sidewall right where the ureter was visualized transperitoneally. We tented the peritoneum on the left pelvic brim we incised it sharply. We stented this incision bluntly with cephalad and caudad traction. The ovary was lateralized with blunt dissection and the peritoneum was opened. This was continued until the area where the ovarian complex with adherent. There was significant retroperitoneal fibrosis in this area. We then bluntly dissected the ovary off the sidewall and portion of the uterosacral ligament on the left. We then incised the ovary on the antimesenteric border, the cyst was ruptured for chocolate-like fluid. This was suctioned and copiously irrigated. The cyst wall was grasped and easily shelled out in a traction countertraction fashion. The cyst wall was then handed off for pathology. We placed an 11 mm suprapubic port, and the defect was then closed with a 2-0 stratafix. The ovary was then temporarily suspended using a Dominick-Juan with 2-0 Monocryl. We also suspended the right ovary in the same manner. At this point colorectal surgery then began their dissection, please see their dictation for additional information. Once the colon dissection and appendectomy had been performed we then continued to resect the left sidewall. There was a large nodule at the apex of the left uterosacral. We did take caution to avoid uterine artery the ureter and the inferior hypogastric nerve. All structures were visualized and intact. The left sidewall was resected and handed off for pathology. We then turned our a (more content not included)... Normal [facility] Hemogramon 05-26-2021 Erythrocyte distribution width (RBC) [Ratio] 13.7 % Normal 11.5-14.5 [facility] Comment on above: Performed By: #### H EMOG #### [address] Hematocrit (Bld) [Volume fraction] 36.9 % Normal 35.0-47.0 [facility] Comment on above: Performed By: #### H EMOG #### [address] Hemoglobin (Bld) [Mass/Vol] 13.1 g/dL Normal 11.7-16.0 [facility] Comment on above: Performed By: #### H EMOG #### [address] MCH (RBC) [Entitic mass] 31.4 pg Normal 26.0-34.0 [facility] Comment on above: Performed By: #### H EMOG #### [address] MCHC 35.4 % Normal 32.0-36.0 [facility] Comment on above: Performed By: #### H EMOG #### [address] MCV (RBC) [Entitic vol] 88.9 fL Normal 79.0-98.0 [facility] Comment on above: Performed By: #### H EMOG #### [facility] [address], [place] Platelet mean volume (Bld) [Entitic vol] 10.3 fL Normal 7.4-10.4 [facility] Comment on above: Performed By: #### H EMOG #### [facility] [address], [place] Platelets (Bld) [#/Vol] 167 10*3/uL Normal 140-440 [facility] Comment on above: Performed By: #### H EMOG #### [place] [address] [address], [place] RBC (Bld) [#/Vol] 4.15 10*6/uL Normal 3.80-5.20 [facility] Comment on above: Performed By: #### H EMOG #### [place] [address], [place] WBC (Bld) [#/Vol] 16.0 10*3/uL High 3.6-10.7 [facility] Comment on above: Performed By: #### H EMOG #### [place] [address] [address], [place] Op Noteon 05-26-2021 Op Note OPERATIVE NOTE PATIENT NAME: Katie Robb : 1990 ATTENDING PHYSICIAN: Laurence Golden MD PROCEDURE DATE: 05/26/2021 PREOPERATIVE DIAGNOSIS: Endometriosis POSTOPERATIVE DIAGNOSIS: Same, perirectal endometriosis SURGEON: Kalina Mccullough MD INFECTION PREVENTION PRACTITIONER: Tomy Bolton MD OPERATION: 1) Laparoscopic Lysis of Adhesions 2) Laparoscopic resection of perirectal nodule 3) Laparoscopic Appendectomy 4) Flexible sigmoidoscopy ANESTHESIA: General ESTIMATED BLOOD LOSS: 10 cc COMPLICATIONS: None SPECIMENS: Was Obtained: appendix, anterior perirectal nodule INDICATIONS: The patient is a 31 y.o. year old female with history of above preop diagnosis. I explained the risk, benefits, expected outcome, and alternatives to the procedure. Patient understood the risks include but are not inclusive to bleeding, infection, leak, ureter injury, bowel injury, anesthesia complication, blood vessel/nerve damage, chronic pain, reoperation, and failure of the procedure to obtain its intended goals. Patient understood and was in agreement and wished to proceed. DESCRIPTION OF PROCEDURE: I scrubbed into the?case after the patient had previously been prepped and draped in the usual sterile manner?and?positioned on the operating room table. Time out protocol had been completed. The left sided laparoscopic ports as well as umbilical port had already been placed. I placed two 5mm laparoscopic ports in the right abdomen. ? ? Then, laparoscopic lysis of adhesions was performed freeing up the left colon, sigmoid colon, and rectum. ?There adhesions of the sigmoid colon to the left sidewall and retroperitoneum. These were freed. There were dense adhesions of the rectum to the posterior vagina, and pelvic sidewall. ?This was all freed up with laparoscopic lysis of adehisions. A left anterior perirectal nodule was sharply excised and sent for pathology, along with peritoneum from the left sidewall. ?Great care was taken to avoid injury to both of the ureters, which were identified and preserved. ? ? A laparoscopic appendectomy was performed?as there were some appendix adhesions to the?right abdominal sidewall and retroperitoneum, and?given the fact that?appendix pathology is seen in a high proportion of patients with surgically diagnosed endometriosis. The appendix was grasped and?elevated and?the harmonic energy device was used to ligate the appendiceal artery and mesoappendix. The terminal ileum was identified and preserved. A 45mm endoGIA stapler was used to staple off the appendix from the cecum. The staple line appeared hemostatic, without evidence of leak. The appendix was removed in a specimen bag and sent for pathology. ? Flexible sigmoidoscopy was then performed to ensure no damage to the rectum or colon. The pelvis was irrigated and leak test was negative. There were no signs of injury or mucosal abnormalities. ? The case was turned back to Dr. Golden, who completed the procedure.?Please refer to her operative note separately. Kalina Mccullough MD [facility] [place] Colorectal Surgery [address], [address] [place], [place] [address] p [phone] f [phone] [facility] Surgical Pathologyon 021 Surgical Pathology [id number] [facility] PATHOLOGY AND LABORATORY MEDICINE [address] [place] [id number] FINAL SURGICAL PATHOLOGY REPORT NAME: KATIE ROBB : 1990 31 Y F BILLING NO.: [id number] LOCATION: [facility] 5129 01 PROCEDURE 05/26/2021 DATE: SURGEON: LAURENCE GOLDEN MD RECEIVED 05/27/2021 DATE: ATTENDING: LAURENCE GOLDEN MD REPORT DATE: 06/06/2021 COPIES TO: DIAGNOSIS: A. LEFT OVARIAN CYST WALL - FRAGMENTS OF OVARIAN PARENCHYMA WITH ENDOMETRIOSIS B. LEFT PELVIC SIDEWALL - FRAGMENTS OF FIBROADIPOSE AND FIBROMUSCULAR TISSUE WITH ENDOMETRIOSIS AND REACTIVE CHANGES C. ANTERIOR PERIRECTAL NODULE - FRAGMENTS OF FIBROADIPOSE TISSUE WITH ENDOMETRIOSIS AND REACTIVE CHANGES Comment: Immunohistochemical stains for pankeratin highlight collections of epithelium within the specimen. Immunohistochemical stains for calretinin highlight mesothelium. Immunohistochemical stains for smooth muscle actin highlight fibromuscular tissue. D. APPENDIX, APPENDECTOMY - BENIGN VERMIFORM APPENDIX WITH MINIMAL MUCOSAL ACUTE INFLAMMATION AND SEROSAL ADHESIONS -INCIDENTAL BENIGN LYMPH NODES E. RIGHT PELVIC SIDEWALL - FIBROMUSCULAR AND FIBROADIPOSE TISSUE WITH SEROSAL ADHESIONS, HEMOSIDERIN DEPOSITION, AND REACTIVE CHANGES -FOCAL ENDOMETRIOSIS Comment: Immunohistochemical stains for CD10 highlight foci of endometrial type stroma. F. RIGHT OVARIAN CYST WALL - OVARIAN TISSUE WITH ENDOMETRIOSIS HCK/HCK Signature> SANA GARCIA M.D. CLINICAL INFORMATION: N80.9, K59.0, R10.2 SPECIMEN: (A) OVARIAN CYST (B) TISSUE NOS (C) TISSUE NOS (D) APPENDIX, APPENDICITIS (E) TISSUE NOS (F) OVARIAN CYST GROSS DESCRIPTION: A. Received in formalin labeled left ovarian cyst wall are multiple fibromembranous fragments of dark pink-lópez soft tissue measuring together 5.0 x 4.0 x 2.0 cm. There is no grossly appreciated normal ovarian architecture. Multiple registration representative sections are submitted in cassettes A1-A3. B. Received in formalin labeled left pelvic sidewall is a cautery-roughened fragment of hemorrhagic, yellow-lópez, fibrofatty soft tissue measuring 1.5 x 1.0 x 0.6 cm. The specimen is multiply sectioned and entirely submitted in cassette B1. C. Received in formalin labeled anterior perirectal nodule are multiple focally hemorrhagic fragments of yellow-lópez fibrofatty soft tissue measuring together 3.0 x 2.5 x 0.7 cm. The fragments are multiply sectioned and entirely submitted in cassettes C1 and C2. D. Received in formalin labeled appendix is a grossly negative vermiform appendix measuring 3.7 x 0.6 cm. The glistening yellow-lópez periappendiceal fat is 3.5 x 1.5 x 1 cm. The appendiceal serosa is generally smooth and pink-lópez with scant surface adhesions distally. The lumen is patent. There is no nodule or fecalith. Four registration representative sections are submitted in cassette D1 including a cross-section through the blue-inked appendiceal surgical margin, a central cross-section and the entire longitudinally sectioned tip. E. Received in formalin labeled right pelvic sidewall are multiple fragments of hemorrhagic, red-lópez soft tissue measuring together 2.0 x 2.0 x 0.5 cm and entirely submitted in cassette E1. F. Received in formalin labeled right ovarian cyst wall is a fibromembranous portion of hemorrhagic red-lópez soft tissue measuring 3.5 x 3.5 x 1 cm. The specimen is multiply sectioned to reveal a central 3 cm collapsed cystic cavity. The cyst wall averages 0.2 cm. The lining is shaggy and hemorrhagic. There is no grossly appreciated normal ovarian architecture. Multiple registration representative sections are submitted in cassettes F1-F3. GW0/KMS1 Disclaimer: The following statement applies to all immunohistochemistry, in situ hybridization, molecular studies, and immunofluorescence testing. The use of one or more reagents in the above tests is regulated as an analyte specific reagent (ASR). These tests were developed and their performance characteristics determined by the clinical laboratories of [facility]. They have not been cleared by the US Food and Drug Administration (FDA). The FDA has determined that such clearance or approval is not necessary. All the above immunostains were performed on paraffin embedded tissue. Appropriate positive and negative controls (where applicable) were run in parallel with the patient's specimen; these controls showed expected staining pattern, with acceptable intensity of staining. Immunohistochemical assays have not been validated on decalcifie (more content not included)... Normal [facility] Hemogramon 05-19-2021 Erythrocyte distribution width (RBC) [Ratio] 14.0 % Normal 11.5-14.5 [facility] Comment on above: Performed By: #### H EMOG #### [facility] [address] [place] [address] Hematocrit (Bld) [Volume fraction] 39.7 % Normal 35.0-47.0 [facility] Comment on above: Performed By: #### H EMOG #### [facility] [address] [place] [address] Hemoglobin (Bld) [Mass/Vol] 14.2 g/dL Normal 11.7-16.0 [facility] Comment on above: Performed By: #### H EMOG #### [facility] [address], [place] MCH (RBC) [Entitic mass] 32.0 pg Normal 26.0-34.0 [facility] Comment on above: Performed By: #### H EMOG #### [facility] [address], [place] MCHC 35.7 % Normal 32.0-36.0 [facility] Comment on above: Performed By: #### H EMOG #### [facility] [address], [place] MCV (RBC) [Entitic vol] 89.6 fL Normal 79.0-98.0 [facility] Comment on above: Performed By: #### H EMODamir #### [facility] [address], [place] Platelet mean volume (Bld) [Entitic vol] 11.3 fL High 7.4-10.4 [facility] Comment on above: Performed By: #### H EMOG #### [place] [address] [address], [place] Platelets (Bld) [#/Vol] 172 10*3/uL Normal 140-440 [facility] Comment on above: Performed By: #### H VERITO #### [place] [address], [place] RBC (Bld) [#/Vol] 4.43 10*6/uL Normal 3.80-5.20 [facility] Comment on above: Performed By: #### H EMOG #### [place] [address], [place] WBC (Bld) [#/Vol] 8.7 10*3/uL Normal 3.6-10.7 [facility] Comment on above: Performed By: #### H EMODamir #### [place] [address], [place] TS GELon 05-19-2021 TS GEL ABO Group: O Rh, Gel: POS Antibody Screen Gel: NEG Normal [facility] Comment on above: Performed By: #### T SGL #### [facility] CNPNon 03-09-2021 CNPN Telephone ([facility]) -------- KATIE ROBB ([id number]) 1990 F Date Time Provider Department 03/09/21 NICK OGRDON During your visit today, we recorded the following information about you: Nick Gordon APRN.STRAPPING MACHINE OPERATOR 03/09/2021 1:58 PM Signed Called patient to review her abdominal imaging showing bilateral ovarian cysts at her ED visit 12/16/20. She states she has been following up on this locally in [place] and does not need follow up from [facility]. Our office contact given in the event she Would like to follow up with us. All questions answered. Nick Gordon APRN.STRAPPING MACHINE OPERATOR Allergies As of Date: 03/09/2021 Noted Allergy Reaction SEASONAL ALLERGIES 03/06/2016 3 - Cough Comments: Typical hayfever symptoms Date Reviewed: 12/16/2020 Reviewed by: Erica Roa RN - Fully Assessed Reason for Visit: Results [95] Cmt: Actionable finding- Bottom Painter Prescriptions as of 03/09/2021 - acetaminophen (TYLENOL) 325 mg tablet Take 2 tablets by mouth every 6 hours as needed for pain. - ibuprofen (MOTRIN) 600 mg tablet Take 1 tablet by mouth every 6 hours. - ondansetron (ZOFRAN) 4 mg tablet Take 1 tablet by mouth every 8 hours as needed for nausea/vomiting. - loratadine (CLARITIN) 10 mg tablet Take 1 tablet by mouth once daily as needed for Cold/Allergy Symptoms. Problem List As Of Date 03/09/2021 Noted Resolved Postcoital and contact bleeding [N93.0] 09/30/2017 12/17/2020 Abdominal pain [R10.9] 12/16/2020 Encounter Status:Closed by NICK GORDON on 03/09/21 Normal [facility] US 3D Render w/o Post Pr ocesson 03-01-2021 [facility] US 3D Render w/o Post Process Patient Name: KATIE ROBB Maternal Medicine ACCESSION EXAM DATE/TIME PROCEDURE ORDERING PROVIDER [id number] 03/01/2021 09:30 EDT [facility] US Transvaginal MD CHANTEL, LAURENCE Moreira Reason For Exam (M US Transvaginal) endmetrioma Report Gynecological Report (Signed Final 03/02/2021 10:30 am) Patient Info ID #: [id number] : [birth year] (31 yrs) Name: KATIE ROBB Visit Date: 03/01/2021 08:44 am Performed By Attending: Laurence Golden Location: [facility] Performed By: Shoaib Ledesma Visit Type: Outpatient Referred By: LAURENCE GODLEN MD Service(s) Provided 3D Reconstruction [id number] Bottom Painter Transvaginal [id number] Indications Endometrioma Technique/Scan Quality Technique: Transvaginal Approach History ------- Age: 31 Vital Signs Weight (lb): 165 Height: 5'7 BMI: 25.84 Hx Comments No known Latex allergies Uterus ------ Uterus: Normal Position: Anteverted Size (cm) L: 7.1 W: 5.69 H: 3.87 Maternal Medicine Report Endometrium Endometrium: Normal Thickness(mm): 11.58 Right Ovary Status: Visualized Size (cm) L: 7.1 W: 5.16 H: 4.2 Vol.(ml): 80.57 Size (cm) L: 5.6 W: 3.9 H: 3.7 Vol.(ml): 42.31 Comment: A 5.6 x3.9 x 3.7 cm cyst with low level internal echoes and ground glass appearance is noted. This may represent an endometrioma. Left Ovary Status: Visualized Size (cm) L: 7.42 W: 5.92 H: 4.98 Vol.(ml): 114.54 Size (cm) L: 6.7 W: 4.6 H: 5.5 Vol.(ml): 88.76 Comment: A 6.7x4.6 x5.5 cm cyst with low level internal echoes and ground glass appearance is noted. This may represent an endometrioma. Impression 1. Anteverted uterus with normal shape endometrium. 2. Left ovary with 5.6cm cyst ground glass appearance. There is one septation. No internal doppler flow. The cyst is surround by normal ovarian parenchyma. 3. Right ovary contains a 6.7cm with ground glass appearance consistent with endometrioma. Kissing ovaries are consistent with Stage IV endometriosis 4. Clinical correlation is recommended. Laurence Golden Electronically Signed Final Report 03/02/2021 10:30 am Preliminary Report Ultrasound ACCESSION EXAM DATE/TIME PROCEDURE ORDERING PROVIDER [id number] 03/01/2021 09:30 EDT [facility] US Transvaginlesia GOLDEN MD, LAURENCE Moreira Reason For Exam ([facility] US Transvaginal) endmetrioma Report Gynecological Report (Signed Final 03/02/2021 10:30 am) Patient Info ID #: [id number] : [birth year] (31 yrs) Name: KATIE ROBB Visit Date: 03/01/2021 08:44 am Performed By Attending: Laurence Golden Location: [facility] Performed By: Shoaib Ledesma Visit Type: Outpatient Referred By: LAURENCE GOLDEN MD Service(s) Provided 3D Reconstruction [id number] Bottom Painter Transvaginal [id number] Indications Endometrioma Technique/Scan Quality Technique: Transvaginal Approach History ------- Age: 31 Vital Signs Weight (lb): 165 Height: 5'7 BMI: 25.84 Hx Comments No known Latex allergies Uterus ------ Uterus: Normal Position: Anteverted Size (cm) L: 7.1 W: 5.69 H: 3.87 Endometrium Endometrium: Normal Thickness(mm): 11.58 Right Ovary Status: Visualized Size (cm) L: 7.1 W: 5.16 H: 4.2 Vol.(ml): 80.57 Size (cm) L: 5.6 W: 3.9 H: 3.7 Vol.(ml): 42.31 Comment: A 5.6 x3.9 x 3.7 cm cyst with low level internal echoes and ground glass appearance is noted. This may represent an endometrioma. Left Ovary Status: Visualized Size (cm) L: 7.42 W: 5.92 H: 4.98 Vol.(ml): 114.54 Size (cm) L: 6.7 W: 4.6 H: 5.5 Vol.(ml): 88.76 Comment: A 6.7x4.6 x5.5 cm cyst with low level internal echoes and ground glass appearance is noted. This may represent an endometrioma. Impression 1. Anteverted uterus with normal shape endometrium. Ultrasound Report 2. Left ovary with 5.6cm cyst ground glass appearance. There is one septation. No internal doppler flow. The cyst is surround by normal ovarian parenchyma. 3. Right ovary contains a 6.7cm with ground glass appearance consistent with endometrioma. Kissing ovaries are consistent with Stage IV endometriosis 4. Clinical correlation is recommended. Laurence Golden Electronically Signed Final Report 03/02/2021 10:30 am Preliminary Report Normal [facility] US Transvaginalon 2020 [facility] US Transvaginal Patient Name: KATIE ROBB Maternal Medicine ACCESSION EXAM DATE/TIME PROCEDURE ORDERING PROVIDER [id number] 03/01/2021 09:30 EDT [facility] US Transvaginal MD CHANTEL, LAURENCE Moreira Reason For Exam ([facility] US Transvaginal) edometrioma Report Gynecological Report (Signed Final 03/02/2021 10:30 am) Patient Info ID #: [id number] : [birth year] (31 yrs) Name: KATIE ROBB Visit Date: 03/01/2021 08:44 am Performed By Attending: Laurence Golden Location: [facility] Performed By: Shoaib Ledesma Visit Type: Outpatient Referred By: LAURENCE GOLDEN MD Service(s) Provided 3D Reconstruction [address] Bottom Painter Transvaginal 04354 Indications Endometrioma Technique/Scan Quality Technique: Transvaginal Approach History ------- Age: 31 Vital Signs Weight (lb): 165 Height: 5'7 BMI: 25.84 Hx Comments No known Latex allergies Uterus ------ Uterus: Normal Position: Anteverted Size (cm) L: 7.1 W: 5.69 H: 3.87 Maternal Medicine Report Endometrium Endometrium: Normal Thickness(mm): 11.58 Right Ovary Status: Visualized Size (cm) L: 7.1 W: 5.16 H: 4.2 Vol.(ml): 80.57 Size (cm) L: 5.6 W: 3.9 H: 3.7 Vol.(ml): 42.31 Comment: A 5.6 x3.9 x 3.7 cm cyst with low level internal echoes and ground glass appearance is noted. This may represent an endometrioma. Left Ovary Status: Visualized Size (cm) L: 7.42 W: 5.92 H: 4.98 Vol.(ml): 114.54 Size (cm) L: 6.7 W: 4.6 H: 5.5 Vol.(ml): 88.76 Comment: A 6.7x4.6 x5.5 cm cyst with low level internal echoes and ground glass appearance is noted. This may represent an endometrioma. Impression 1. Anteverted uterus with normal shape endometrium. 2. Left ovary with 5.6cm cyst ground glass appearance. There is one septation. No internal doppler flow. The cyst is surround by normal ovarian parenchyma. 3. Right ovary contains a 6.7cm with ground glass appearance consistent with endometrioma. Kissing ovaries are consistent with Stage IV endometriosis 4. Clinical correlation is recommended. Laurence Golden Electronically Signed Final Report 03/02/2021 10:30 am Preliminary Report Ultrasound ACCESSION EXAM DATE/TIME PROCEDURE ORDERING PROVIDER [id number] 03/01/2021 09:30 EDT [facility] US Transvaginal MD CHANTEL, LAURENCE Moreira Reason For Exam ([facility] US Transvaginal) edometrioma Report Gynecological Report (Signed Final 03/02/2021 10:30 am) Patient Info ID #: [id number] : [birth year] (31 yrs) Name: KATIE ROBB Visit Date: 03/01/2021 08:44 am Performed By Attending: Laurence Golden Location: [facility] Performed By: Shoaib Ledesma Visit Type: Outpatient Referred By: LAURENCE GOLDEN MD Service(s) Provided 3D Reconstruction 11450 Bottom Painter Transvaginal 86769 Indications Endometrioma Technique/Scan Quality Technique: Transvaginal Approach History ------- Age: 31 Vital Signs Weight (lb): 165 Height: 5'7 BMI: 25.84 Hx Comments No known Latex allergies Uterus ------ Uterus: Normal Position: Anteverted Size (cm) L: 7.1 W: 5.69 H: 3.87 Endometrium Endometrium: Normal Thickness(mm): 11.58 Right Ovary Status: Visualized Size (cm) L: 7.1 W: 5.16 H: 4.2 Vol.(ml): 80.57 Size (cm) L: 5.6 W: 3.9 H: 3.7 Vol.(ml): 42.31 Comment: A 5.6 x3.9 x 3.7 cm cyst with low level internal echoes and ground glass appearance is noted. This may represent an endometrioma. Left Ovary Status: Visualized Size (cm) L: 7.42 W: 5.92 H: 4.98 Vol.(ml): 114.54 Size (cm) L: 6.7 W: 4.6 H: 5.5 Vol.(ml): 88.76 Comment: A 6.7x4.6 x5.5 cm cyst with low level internal echoes and ground glass appearance is noted. This may represent an endometrioma. Impression 1. Anteverted uterus with normal shape endometrium. Ultrasound Report 2. Left ovary with 5.6cm cyst ground glass appearance. There is one septation. No internal doppler flow. The cyst is surround by normal ovarian parenchyma. 3. Right ovary contains a 6.7cm with ground glass appearance consistent with endometrioma. Kissing ovaries are consistent with Stage IV endometriosis 4. Clinical correlation is recommended. Laurence Golden Electronically Signed Final Report 03/02/2021 10:30 am Preliminary Report Normal [facility] CBC panel Auto (Bld)on 12-17 Erythrocyte distribution width (RBC) [Ratio] 12.8 % Normal 11.5-15.0 [facility] Comment on above: Order Comment: Speci men Type: BLOOD SPECIMEN Performed By: #### 5 8410-2 #### [facility] CLIA [id number] [address] [place] [address] Hematocrit (Bld) [Volume fraction] 34.9 % Low 36.0-46.0 [facility] Comment on above: Order Comment: Speci men Type: BLOOD SPECIMEN Performed By: #### 5 8410-2 #### [facility] CLIA [id number] [address] [place] [address] Hemoglobin (Bld) [Mass/Vol] 12.6 g/dL Normal 11.5-15.5 [facility] Comment on above: Order Comment: Speci men Type: BLOOD SPECIMEN Performed By: #### 5 8410-2 #### [facility] CLIA [id number] [address] [place] [address] MCH (RBC) [Entitic mass] 32.0 pg Normal 26.0-34.0 [facility] Comment on above: Order Comment: Speci men Type: BLOOD SPECIMEN Performed By: #### 5 8410-2 #### [facility] CLIA [id number] [address] [place] [address] MCHC (RBC) [Mass/Vol] 36.1 g/dL High 30.5-36.0 [facility] Comment on above: Order Comment: Speci men Type: BLOOD SPECIMEN Performed By: #### 5 8410-2 #### [facility] CLIA [id number] [address] [place] [address] MCV (RBC) [Entitic vol] 88.6 fL Normal 80.0-100.0 [facility] Comment on above: Order Comment: Speci men Type: BLOOD SPECIMEN Performed By: #### 5 8410-2 #### [facility] CLIA [id number] [address] [place] [address] Nucleated RBC (Bld) [#/Vol] 10*3/uL Normal <0.01 [facility] Comment on above: Order Comment: Speci men Type: BLOOD SPECIMEN Performed By: #### 5 8410-2 #### [facility] CLIA [id number] [address] [place] [address] Platelet mean volume (Bld) [Entitic vol] 11.6 fL Normal 9.0-12.7 [facility] Comment on above: Order Comment: Speci men Type: BLOOD SPECIMEN Performed By: #### 5 8410-2 #### [facility] CLIA [id number] [address] [place] [address] Platelets (Bld) [#/Vol] 188 10*3/uL Normal 150-400 [facility] Comment on above: Order Comment: Speci men Type: BLOOD SPECIMEN Performed By: #### 5 8410-2 #### [facility] CLIA [id number] [address] [place] [address] RBC (Bld) [#/Vol] 3.94 10*6/uL Normal 3.90-5.20 [facility] Comment on above: Order Comment: Speci men Type: BLOOD SPECIMEN Performed By: #### 5 8410-2 #### [facility] CLIA [id number] [address] [place] [address] WBC (Bld) [#/Vol] 11.77 10*3/uL High 3.70-11.00 [facility] Comment on above: Order Comment: Speci men Type: BLOOD SPECIMEN Performed By: #### 5 8410-2 #### [facility] CLIA [id number] [address] [place] [address] GC/CHLAMYDIA DNA DETon 12-17 C. trachomatis DNA KEELEY+probe Ql (Unsp spec) Negative Normal Negative for Chlamydia trachomatis by amplificaton [facility] Comment on above: Order Comment: Speci men Type: SPECIMEN FROM GENITAL SYSTEM Performed By: #### G CCT #### [facility] CLIA [id number] [address] [place] [address] N. gonorrhoeae DNA KEELEY+probe Ql (Unsp spec) Negative Normal Negative for Neisseria gonorrhoeae by amplification [facility] Comment on above: Order Comment: Speci men Type: SPECIMEN FROM GENITAL SYSTEM Performed By: #### G CCT #### [facility] CLIA [id number] [address] [place] [address] HISTORY PHYSICALon HISTORY PHYSICAL HNO ID: [id number] Author: Niya Henriquez DO Service: Gynecology Author Type: Resident Type: HANDP Filed: 12/17/2020 5:06 AM Note Text: -------- Attestation signed by Sonia Girard DO at 12/17/2020 8:07 AM agree -------- GYNECOLOGY HANDP SERVICE DATE: 12/16/2020 SERVICE TIME: 11:40 PM Subjective HISTORY OF THE PRESENT ILLNESS This 30 year old presents as a direct admission from [facility] for abdominal pain. Patient reports that she was being worked up for infertility and subsequently found out that she likely has endometriosis with endometriomas. On Sunday she had a hysterosalpingogram and on Sunday she had a saline infusion sonogram. Sunday night she started to have significant lower abdominal pain. She presented to [facility] where CT abdomen/pelvis and pelvic US were performed and demonstrated cysts and fluid in the pelvis. She did receive a dose of Morphine there but states it did not relieve the pain. She endorses having occasional pelvic pain with intercourse, urination, and bowel movements. She endorses associated nausea without vomiting, decreased appetite, and loose bowel movement this morning. She denies fevers, chills, chest pain, shortness of breath, palpitations, constipation, abnormal vaginal discharge, or vaginal itching or burning. HISTORY: PAST MEDICAL HISTORY Diagnosis Date - Autoimmune disorder (HCC) Reynaud's , +PREETHI - Broken bones right great toe, right wrist, nose - NEGATIVE MEDICAL HISTORY PAST SURGICAL HISTORY Procedure Laterality Date - OTHER Positive PREETHI - REMOVE TONSIL AND ADENOI UNDER AGE 14 FAMILY HISTORY Problem Relation Age of Onset - Thyroid Mother - Arthritis Maternal Grandmother Rheumatoid - Diabetes Mother - Cancer Father lung - None Brother - None Sister - Cancer Maternal Grandfather lung-smoker - COPD Paternal Grandfather Social History Tobacco Use - Smoking status: Never Smoker - Smokeless tobacco: Never Used Vaping Use - Vaping Use: Never used Substance Use Topics - Alcohol use: Yes Comment: occ - Drug use: No OB History T0 L0 SAB0 TAB0 Ectopic0 Multiple0 Live Births0 ALLERGIES Allergen Reactions - Seasonal Allergies Cough Typical hayfever symptoms No current facility-administered medications on file prior to encounter. Current Outpatient Medications on File Prior to Encounter Medication Sig - loratadine (CLARITIN) 10 mg tablet Take 1 tablet by mouth once daily as needed for Cold/Allergy Symptoms. ROS: See HPI above. Objective PHYSICAL EXAM: Blood pressure 106/61, pulse 87, temperature 37 ?C (98.6 ?F), temperature source Oral, resp. rate 18, height 170.2 cm (5' 7), weight 72.6 kg (160 lb), last menstrual period 12/05/2020, SpO2 99 %. GENERAL: In no apparent distress. Uncomfortable. CARDIOVASCULAR: Regular rate and rhythm. PULMONARY: Nonlabored breathing ABDOMEN: Soft, diffusely tender in lower abdomen, guarding present, nondistended STERILE SPECULUM EXAM: normal-appearing cervix, physiologic appearing discharge BIMANUAL EXAM: no CVA tenderness, difficult to determine adnexal or uterine tenderness due to patient's diffuse lower abdominal tenderness DATA: Diagnostic tests reviewed for today's visit: Most recent labs and imaging results. CT ABD/PEL W IVCON IMPRESSION: 1. There are two large adjacent relatively thick walled cystic collections in the pelvis. Differential considerations include tubo-ovarian abscesses, ovarian cysts, endometriomas or cystic neoplasm. There is peripherally enhancing loculated fluid insinuating throughout the pelvis with the largest fluid pocket in the pouch of Hilario measuring 4.0 x 4.5 cm concerning for abscess. 2. Multiple dilated small bowel loops without discrete transition point may represent developing ileus. 3. Normal retrocecal appendix. 4. Splenomegaly. PELVIC US IMPRESSION: Vascular flow present to both ovaries 5-6 cm complex ovarian lesions bilaterally. Appearance could reflect endometriomas. Complex cystic lesions cannot be excluded. Possibility of abscesses in the clinical setting of pelvic inflammatory disease in the differential. ?Clinical correlation is needed. Moderate complex pelvic free fluid reflecting either hemorrhagic or proteinaceous ascites Hemoglobin (g/dL) Date Value 12/16/2020 14.0 Hematocrit (%) Date Value 12/16/2020 39.2 WBC (k/uL) Date Value 12/16/2020 15.25 Impression/Recommendatio ns #Abdominal pain -Admit for observation and pain management -In the setting of suspected endometriosis with endometriomas -Imaging at [facility] demonstrated b/l complex cystic masses and fluid in pelvis -WBC of 15.25 -Afebrile, nontachycardic on arrival -UA +trace leuks -s/p 1 dose Mefoxin and Doxycycline at (more content not included)... Normal [facility] NURSING PROGon 12-17-2020 NURSING PROG HNO ID: [id number] Author: Roma Wiggins RN Service: Nursing Author Type: Registered Nurse Type: Nursing Progress Note Filed: 12/17/2020 4:13 AM Note Text: Nursing Progress Note Patient Name: Katie Robb Patient Location: [place] [address] [address] 08-09 0405: PHARMACEUTICAL SERVICE REPRESENTATIVE notified of BP 88/58. Pt feels as though she is just dehydrated, otherwise asymptomatic. HR 77. RN to continue to encourage PO intake. This note was completed by: Roma Wiggins Normal [facility] RAPID BACT VAGINOSIS (AK)on 12-17-2020 Bacterial sialidase Ql (Unsp spec) Negative Normal Negative for the presence of bacterial vaginosis. [facility] Comment on above: Order Comment: Speci men Type: MICROBIAL ISOLATE Performed By: #### R APBVAG #### [facility] CLIA [id number] [address] [place] [address] T vaginalis Ag Genital Ql IA on 12-17-2020 T. vaginalis Ag IA Ql (Genital specimen) TRICHOMONAS PREP RESULT: Negative for Trichomonas vaginalis antigen Normal [facility] Comment on above: Performed By: #### R APBVAG #### [facility] CLIA [id number] [address] [place] [address] ALLIED HEALTHon 12-16-2020 ALLIED HEALTH HNO ID: [id number] Author: Jony Damon Service: Radiology Author Type: Adding Machine Mechanic Type: Allied Health Filed: 12/16/2020 5:33 PM Note Text: Radiology Service Progress Note DATE OF SERVICE: December 16, 2020 TIME: 5:29 PM PATIENT IDENTITY VERIFICATION COMPLETED USING TWO (2) STANDARD IDENTIFIERS: Name and Date of confirmed by patient verbally and Name and Date of confirmed by identification band. FALL SCREENING: Has the patient had 2 falls in the last year or 1 fall with injury or currently using an Ambulatory Assistive Device (Walker, Cane, Wheelchair, Crutches, etc.)? Emergency Room Patient: Screened in ED PATIENT GENDER DATA: Female. status: : No status: NO. PATIENT RELEVANT IMPLANT DATA REVIEWED: Not Applicable ALLERGIES: Reviewed and unchanged CONTRAST ALLERGY: NO. EXAM: CT -CONTRAST INDUCED NEPHROPATHY RISK FACTORS: Not applicable CREATININE: Creatinine Date Value Ref Range Status 12/16/2020 0.82 0.51 - 0.95 mg/dL Final eGFR-All Other Races Date Value Ref Range Status 12/16/2020 >60 Final Comment: eGFR (Estimated GFR) Units of measure: mL/min/1.73 meters squared eGFR is derived from the reexpressed MDRD Study equation using the following parameters: serum creatinine, age, gender and race. The creatinine assay has been calibrated to be traceable to IDMS. An eGFR <60 mL/min/1.73m2 for >3 months is consistent with chronic kidney disease. Refer to KDOQI guidelines for clinical interpretation. In patients with unstable renal function, e.g. those with acute kidney injury, the eGFR may not accurately reflect actual GFR. eGFR- Date Value Ref Range Status 12/16/2020 >60 Final P.O.C.T. RESULTS: POC done: Yes, See Lab Tab December 16, 2020 TREATMENT: N/A PERIPHERAL IV DATA: Inpatient - refer to LDA documentation RADIOLOGY DEPARTMENT: CT; Exam(s) Completed: Abdomen/Pelvis SIGNATURE: Jony Damon PATIENT NAME: Katie Robb DATE: December 16, 2020 TIME: 5:29 PM Normal [facility] CBC panel Auto (Bld)on 12-16 Erythrocyte distribution width (RBC) [Ratio] 13.0 % Normal 11.5-15.0 [facility] Comment on above: Order Comment: Speci men Type: BLOOD SPECIMEN Performed By: #### 5 8410-2 #### [facility] CLIA [id number] [address] [place] [address] Hematocrit (Bld) [Volume fraction] 39.2 % Normal 36.0-46.0 [facility] Comment on above: Order Comment: Speci men Type: BLOOD SPECIMEN Performed By: #### 5 8410-2 #### [facility] CLIA [id number] [address] [place] [address] Hemoglobin (Bld) [Mass/Vol] 14.0 g/dL Normal 11.5-15.5 [facility] Comment on above: Order Comment: Speci men Type: BLOOD SPECIMEN Performed By: #### 5 8410-2 #### [facility] CLIA [id number] [address] [place] [address] MCH (RBC) [Entitic mass] 31.3 pg Normal 26.0-34.0 [facility] Comment on above: Order Comment: Speci men Type: BLOOD SPECIMEN Performed By: #### 5 8410-2 #### [facility] CLIA [id number] [address] [place] [address] [place] [facility] MCHC (RBC) [Mass/Vol] 35.7 g/dL Normal 30.5-36.0 [facility] Comment on above: Order Comment: Speci men Type: BLOOD SPECIMEN Performed By: #### 5 8410-2 #### [facility] CLIA [id number] [address] [place] [address] MCV (RBC) [Entitic vol] 87.5 fL Normal 80.0-100.0 [facility] Comment on above: Order Comment: Speci men Type: BLOOD SPECIMEN Performed By: #### 5 8410-2 #### [facility] CLIA [id number] [address] [place] [address] Platelet mean volume (Bld) [Entitic vol] 11.7 fL Normal 9.0-12.7 [facility] Comment on above: Order Comment: Speci men Type: BLOOD SPECIMEN Performed By: #### 5 8410-2 #### [facility] CLIA [id number] [address] [place] [address] [place] Platelets (Bld) [#/Vol] 187 10*3/uL Normal 150-400 [facility] Comment on above: Order Comment: Speci men Type: BLOOD SPECIMEN Performed By: #### 5 8410-2 #### [facility] CLIA [id number] [address] [place] [address] RBC (Bld) [#/Vol] 4.48 10*6/uL Normal 3.90-5.20 [facility] Comment on above: Order Comment: Speci men Type: BLOOD SPECIMEN Performed By: #### 5 8410-2 #### [facility] CLIA [id number] [address] [place] [address] [place] [facility] WBC (Bld) [#/Vol] 15.25 10*3/uL High 3.70-11.00 [facility] Comment on above: Order Comment: Speci men Type: BLOOD SPECIMEN Performed By: #### 5 8410-2 #### [facility] CLIA [id number] [address] [place] [address] CT ABD/PEL W IVCONon 021 CT ABD/PEL W IVCON * * *Final Report* * * DATE OF EXAM: Dec 16 2020 5:38PM [facility] 0530 - CT ABD/PEL W IVCON / PROCEDURE REASON: Abd pain, fever, no recent surgery * * * * Physician Interpretation * * * * EXAMINATION: CT ABDOMEN AND PELVIS WITH IV CONTRAST CLINICAL HISTORY: Right lower quadrant abdominal pain TECHNIQUE: CT of the abdomen and pelvis was performed using standard technique, scanning from just above the dome of the diaphragm to the symphysis pubis. MQ: CTAP_3 Contrast: IV: 145 ml of Omnipaque 300 CT Radiation dose: Integrated Dose-length product (DLP) for this visit = 544 mGy*cm. CT Dose Reduction Employed: Automated exposure control (AEC) COMPARISON: None. RESULT: Liver: No mass. Biliary: No bile duct dilation. Gallbladder is unremarkable. Spleen: Splenomegaly measuring 14 cm in greatest dimension. No splenic mass. Pancreas: No mass or duct dilation. Adrenals: No mass. Kidneys: 1.3 cm fluid attenuation cyst in the mid left kidney. No hydronephrosis. GI tract: There are multiple dilated small bowel loops measuring up to 3.3 cm but no discrete transition point. Normal retrocecal appendix. Lymph nodes: No abdominal or pelvic lymphadenopathy. Mesentery/Peritoneum: No ascites or mass. Retroperitoneum: No mass. Vasculature: The celiac axis and SMA are patent. The portal vein and branches, splenic vein, SMV, and hepatic veins are patent. No abdominal aortic or iliac artery aneurysm. Pelvis: 6.2 x 4.3 cm relatively thick walled cystic collection in the right pelvis. Left adjacent to this collection is a 6.2 x 4.8 cm similar appearing lesion. There is peripherally enhancing loculated fluid insinuating throughout the pelvis with the largest pocket in the pouch of Hilario measuring 4.0 x 4.5 cm concerning for abscess. There is fat stranding throughout the pelvis, particularly posteriorly around the rectum. Uterus is present. Urinary bladder is unremarkable. Bones/Soft Tissues: No significant finding. Lower thorax: Unremarkable. Blogs Manager (topogram) images: No additional findings. IMPRESSION: 1. There are two large adjacent relatively thick walled cystic collections in the pelvis. Differential considerations include tubo-ovarian abscesses, ovarian cysts, endometriomas or cystic neoplasm. There is peripherally enhancing loculated fluid insinuating throughout the pelvis with the largest fluid pocket in the pouch of Hilario measuring 4.0 x 4.5 cm concerning for abscess. 2. Multiple dilated small bowel loops without discrete transition point may represent developing ileus. 3. Normal retrocecal appendix. 4. Splenomegaly. Reinforcing Rod Layer: VIKY Transcribe Date/Time: Dec 16 2020 5:41P Dictated by : DASHAWN TRUJILLO MD This examination was interpreted and the report reviewed and electronically signed by: DASHAWN TRUJILLO MD on Dec 16 2020 6:01PM EST [id number] Normal [facility] Comprehensive metabolic 2000 panelon 12-16-2020 Albumin [Mass/Vol] 4.0 g/dL Normal 3.4-5.0 [facility] Comment on above: Order Comment: Speci men Type: BLOOD SPECIMEN Performed By: #### 3 040-3, 22516-9 #### [facility] CLIA [id number] [address] ALP [Catalytic activity/Vol] 66 U/L Normal 46-116 [facility] Comment on above: Order Comment: Speci men Type: BLOOD SPECIMEN Performed By: #### 3 040-3, 51680-1 #### [facility] CLIA [id number] [address] OF [facility] ALT With P-5'-P [Catalytic activity/Vol] 14 U/L Normal 12-78 [facility] Comment on above: Order Comment: Speci men Type: BLOOD SPECIMEN Performed By: #### 3 040-3, 80748-1 #### [facility] CLIA [id number] [address] Anion gap [Moles/Vol] 6 mmol/L Low 8-16 [facility] Comment on above: Order Comment: Speci men Type: BLOOD SPECIMEN Performed By: #### 3 040-3, 22713-0 #### [facility] CLIA [id number] [address] AST With P-5'-P [Catalytic activity/Vol] 12 U/L Low 15-46 [facility] Comment on above: Order Comment: Speci men Type: BLOOD SPECIMEN Performed By: #### 3 040-3, 67016-5 #### [facility] CLIA [id number] [address] [place] Bilirubin [Mass/Vol] 1.7 mg/dL High 0.2-1.0 [facility] Comment on above: Order Comment: Speci men Type: BLOOD SPECIMEN Performed By: #### 3 040-3, #### [facility] CLIA [id number] [facility] STATES OF [facility] Calcium [Mass/Vol] 8.9 mg/dL Normal 8.5-10.1 [facility] Comment on above: Order Comment: Speci men Type: BLOOD SPECIMEN Performed By: #### 3 040-3, #### [facility] CLIA [id number] [address] [place] [address] [place] OF [facility] Chloride [Moles/Vol] 104 mmol/L Normal 98-107 [facility] Comment on above: Order Comment: Speci men Type: BLOOD SPECIMEN Performed By: #### 3 040-3, #### [facility] CLIA [id number] [address] [place] [address] [place] CO2 [Moles/Vol] 27 mmol/L Normal 21-32 [facility] Comment on above: Order Comment: Speci men Type: BLOOD SPECIMEN Performed By: #### 3 040-3, #### [facility] CLIA [id number] [address] [place] [address] STATES [facility] Creatinine [Mass/Vol] 0.82 mg/dL Normal 0.51-0.95 [facility] Comment on above: Order Comment: Speci men Type: BLOOD SPECIMEN Performed By: #### 3 040-3, 19529-8 #### [facility] CLIA [id number] [address] [place] [address] [place] GFR/1.73 sq M.predicted among blacks MDRD (S/P/Bld) [Vol rate/Area] mL/min/{1.73_m2} Normal [facility] Comment on above: Order Comment: Speci men Type: BLOOD SPECIMEN Performed By: #### 3 040-3, 14620-7 #### [facility] CLIA [id number] [address] [place] [address] [place] GFR/1.73 sq M.predicted among non-blacks MDRD (S/P/Bld) [Vol rate/Area] mL/min/{1.73_m2} Normal [facility] Comment on above: Order Comment: Speci men Type: BLOOD SPECIMEN Result Comment: eGFR (Estimated GFR) Units of measure: mL/min/1.73 meters squared eGFR is derived from the reexpressed MDRD Study equation using the following parameters: serum creatinine, age, gender and race. The creatinine assay has been calibrated to be traceable to IDMS. An eGFR <60 mL/min/1.73m2 for >3 months is consistent with chronic kidney disease. Refer to KDOQI guidelines for clinical interpretation. In patients with unstable renal function, e.g. those with acute kidney injury, the eGFR may not accurately reflect actual GFR. Performed By: #### 3 040-3, 26425-0 #### [facility] CLIA [id number] [address] [place] [address] [place] Glucose [Mass/Vol] 112 mg/dL High 70-99 [facility] Comment on above: Order Comment: Jonna men Type: BLOOD SPECIMEN Result Comment: The [place] Diabetes Association (ADA) provides guidance for cutoff values for fasting glucose and random glucose. The ADA defines fasting as no caloric intake for at least 8 hours. Fasting plasma glucose results between 100 to 125 mg/dL indicate increased risk for diabetes (prediabetes). Fasting plasma glucose results greater than or equal to 126 mg/dL meet the criteria for diagnosis of diabetes. In the absence of unequivocal hyperglycemia, results should be confirmed by repeat testing. In a patient with classic symptoms of hyperglycemia or hyperglycemic crisis, random plasma glucose results greater than or equal to 200 mg/dL meet the criteria for diagnosis of diabetes. Reference: Standards of Medical Care in Diabetes 2016, [place] Diabetes Association. Diabetes Care. 2016.39(Suppl 1). Performed By: #### 3 040-3, 30802-5 #### [facility] CLIA [id number] [address] [place], [place] [address] [place] Potassium [Moles/Vol] 4.0 mmol/L Normal 3.5-5.1 [facility] Comment on above: Order Comment: Speci men Type: BLOOD SPECIMEN Performed By: #### 3 040-3, 20459-4 #### [facility] CLIA [id number] [address] [place] [address] Protein [Mass/Vol] 6.9 g/dL Normal 6.4-8.2 [facility] Comment on above: Order Comment: Speci men Type: BLOOD SPECIMEN Performed By: #### 3 040-3, 13005-4 #### [facility] CLIA [id number] [address] [place] [address] Sodium [Moles/Vol] 137 mmol/L Normal 136-145 [facility] Comment on above: Order Comment: Speci men Type: BLOOD SPECIMEN Performed By: #### 3 040-3, 74052-4 #### [facility] CLIA [id number] [address] [place] [address] STATES [facility] Urea nitrogen [Mass/Vol] 13 mg/dL Normal 7-18 [facility] Comment on above: Order Comment: Speci men Type: BLOOD SPECIMEN Performed By: #### 3 040-3, 80001-1 #### [facility] CLIA [id number] [address] [place] [address] ED NOTEon 12-16-2020 ED NOTE HNO ID: [id number] Author: Yanet Navarro RN Service: Emergency Medicine Author Type: Registered Nurse Type: ED Notes Filed: 12/16/2020 4:09 PM Note Text: Sent for OB office with concerns of appendicitis. Pt has been under the care of her OB with symptoms of RLQ and generalized abdominal pain. Patient has Hx endometrosis, had US Yesterday for rule out Ovarian torsion/cyst. Negative. Patient symptoms worsening to RLQ through the night, unrelieved by OTC ibuprofen. Denies and urinary complaints. Mild nausea, deniesa and Diarrhea or episodes of vomiting. No cercern of STD by PT. Normal [facility] ED PROV NOTEon 12-16-2020 ED PROV NOTE HNO ID: [id number] Author: Concha Villarreal MD Service: Emergency Medicine Author Type: Physician Type: ED Provider Notes Filed: 12/21/2020 2:10 AM Note Text: Attending Physician Attestation Note: Hart findings confirmed. I saw the patient in coordination with the resident physician. I personally interviewed and examined the patient. I discussed the patient with the resident physician. I reviewed the resident physician's note. I was present for hart portions of and personally supervised any/all procedures. I agree with the resident physician's findings and medical decision making unless otherwise documented. Patient is a 30-year-old female with past medical history significant for Raynaud's presenting with complaints of abdominal pain. History is provided by the patient. She states that over the last couple days she has had vague diffuse abdominal pain across her lower abdomen. States is been more pressure-like and uncomfortable but over the last 24 hours is acutely worsened and localized to the right lower quadrant. She states that if she holds completely still symptoms are bearable with any sort of movement however, symptoms become quite severe. Complains of associated nausea, no vomiting. Reports that she has had loose stools and pain with bowel movements. No blood in stool. Reports that she has significant lower abdominal pressure when she tries to have bowel movement or urinate. No dysuria, hematuria increased urinary frequency. Denies fevers or chills. No medications taken for symptoms prior to arrival. She does report decreased appetite. 10 point review of systems completed with pertinent positives and negatives as per history of present illness, otherwise negative. Physical exam Patient looks uncomfortable but overall she is non-toxic. Hemodynamically stable and afebrile Heart RRR w/o murmurs; Distal pulses intact Lungs CTAB Abd soft, nondistended. Tenderness palpation across lower abdomen with guarding in the right lower quadrant. Positive rebound. No peritoneal signs. No CVA tenderness. Hypoactive bowel sounds. Patient moves all 4 extremities spontaneously and without deficit MDM Patient is a 30-year-old female with history as above presenting with complaints of abdominal pain. History and exam as above. Medical record reviewed. Differential diagnosis concern at this time include appendicitis, colitis, PID, TOA, cystitis. Patient denies concern for STI exposure. Basic lab evaluation was obtained. Initial blood work shows leukocytosis with white blood cell count of 15.25. Metabolic panel and lipase within normal limits. Urinalysis shows few bacteria, trace leukoesterase however is a contaminant specimen. CT imaging was obtained due to differential as above. CT ABD/PEL W IVCON IMPRESSION: 1. There are two large adjacent relatively thick walled cystic collections in the pelvis. Differential considerations include tubo-ovarian abscesses, ovarian cysts, endometriomas or cystic neoplasm. There is peripherally enhancing loculated fluid insinuating throughout the pelvis with the largest fluid pocket in the pouch of Hilario measuring 4.0 x 4.5 cm concerning for abscess. 2. Multiple dilated small bowel loops without discrete transition point may represent developing ileus. 3. Normal retrocecal appendix. 4. Splenomegaly. Due to CT findings, patient started empirically on antibiotics for TOA, pelvic pathology. Ultrasound imaging obtained. US FEMALE PELVIS IMPRESSION: Vascular flow present to both ovaries 5-6 cm complex ovarian lesions bilaterally. Appearance could reflect endometriomas. Complex cystic lesions cannot be excluded. Possibility of abscesses in the clinical setting of pelvic inflammatory disease in the differential. ?Clinical correlation is needed. Moderate complex pelvic free fluid reflecting either hemorrhagic or proteinaceous ascites Findings discussed with patient. We did call and discuss case with her behavioral intervention specialist, Dr. Spivey. At this time, she recommended admission for observation, pain control. Recommendation discussed with patient. She is agreeable with plan for admission. To be transferred in stable condition. Concha Villarreal MD This note was created using [employer] dictation software. Every attempt was made to proofread, however you may find errors regardless of how insignificant they may be. They are purely unintentional and if there are any concerns regarding this dictation, please do not hesitate to call the dictating provider for clarification. Concha Villarreal MD 12/21/20 0210 Normal [facility] ED PROV NOTE HNO ID: [id number] Author: Wm Ricks MD Service: Emergency Medicine Author Type: Resident Type: ED Provider Notes Filed: 12/16/2020 11:31 PM Note Text: -------- Attestation signed by Concha Villarreal MD at 12/28/2020 6:42 AM Attending Physician Attestation Note: Hart findings confirmed. I saw the patient in coordination with the resident physician. I personally interviewed and examined the patient. I discussed the patient with the resident physician. I reviewed the resident physician's note. I was present for hart portions of and personally supervised any/all procedures. I agree with the resident physician's findings and medical decision making unless otherwise documented. Concha Villarreal MD Signature: Concha Villarreal MD Date: 12/28/2020 Time: 6:42 AM -------- ED Provider Note Patient Name: Katie Robb SERVICE DATE: 12/16/20 History Patient presents with: Abdominal Pain Patient is a 30-year-old female presenting due to abdominal pain. She has a history of endometriosis, she was sent here by her CUSTOMER CARE TEAM COACH for concern for appendicitis. She reports last night around 8 PM she started having abdominal pain. She went to the ER few hours later. It was acutely at its worse at this time. She waited 4 hours at the ER but was not seen as there was a significant line at the ER. She left at that time. She said she felt a little better. She presents now after following up with her CUSTOMER CARE TEAM COACH. Had some concern for appendicitis. He reports nausea but denies vomiting. Reports decreased appetite over the past day. She had a loose bowel movement this morning. She is never had any surgeries in the past. She reports pain with generalized movement. Last menstrual cycle was a week and half ago. She had a transvaginal ultrasound yesterday before the pain started which she states showed cysts on her ovaries. PAST MEDICAL HISTORY Diagnosis Date - Autoimmune disorder (HCC) Reynaud's , +PREETHI - Broken bones right great toe, right wrist, nose - NEGATIVE MEDICAL HISTORY PAST SURGICAL HISTORY Procedure Laterality Date - OTHER Positive PREETHI - REMOVE TONSIL AND ADENOI UNDER AGE 14 FAMILY HISTORY Problem Relation Age of Onset - Thyroid Mother - Arthritis Maternal Grandmother Rheumatoid - Diabetes Mother - Cancer Father lung - None Brother - None Sister - Cancer Maternal Grandfather lung-smoker - COPD Paternal Grandfather Social History Tobacco Use - Smoking status: Never Smoker - Smokeless tobacco: Never Used Vaping Use - Vaping Use: Never used Substance and Sexual Activity - Alcohol use: Yes Comment: occ - Drug use: No - Sexual activity: Yes Partners: Male Comment: Briana-Yayo ALLERGIES Allergen Reactions - Seasonal Allergies Cough Typical hayfever symptoms Review of Systems Constitutional: Positive for activity change, appetite change and chills. Negative for diaphoresis, fatigue and fever. HENT: Negative for congestion, postnasal drip, rhinorrhea, sinus pain and sore throat. Eyes: Negative for pain, discharge and visual disturbance. Respiratory: Negative for chest tightness, shortness of breath and stridor. Cardiovascular: Negative for chest pain, palpitations and leg swelling. Gastrointestinal: Positive for abdominal pain and nausea. Negative for constipation, diarrhea and vomiting. Genitourinary: Positive for vaginal bleeding. Negative for difficulty urinating, dysuria, flank pain, frequency, pelvic pain and vaginal discharge. Minor vaginal bleeding after procedure yesterday Musculoskeletal: Negative for arthralgias, back pain, myalgias, neck pain and neck stiffness. Skin: Negative for color change, pallor, rash and wound. Neurological: Negative for dizziness, seizures, facial asymmetry, light-headedness, numbness and headaches. Physical Exam BP 103/72 Pulse 79 Temp (Src) 97.2 (Tympanic) Resp 18 Wt 160 lb (72.6kg) SpO2 99% LMP 12/05/2020 O2 Therapy: Room Air Physical Exam Vitals and nursing note reviewed. Constitutional: General: She is not in acute distress. Appearance: She is well-developed and normal weight. She is not ill-appearing, toxic-appearing or diaphoretic. HENT: Head: Normocephalic and atraumatic. Mouth/Throat: Mouth: Mucous membranes are moist. Eyes: Extraocular Movements: Extraocular movements intact. Conjunctiva/sclera: Conjunctivae normal. Pupils: Pupils are equal, round, and reactive to light. Neck: Trachea: No tracheal deviation. Cardiovascular: Rate and Rhythm: Normal rate and regular rhythm. Heart sounds: Normal heart sounds. No murmur heard. No friction rub. Pulmonary: Effort: Pulmonary effort is normal. No respiratory distress. Breath sounds: Normal breath sounds. No wheezing. Abdominal: General: Phuc (more content not included)... Normal [facility] HCG Preg Ur Qlon 12-16-2020 HCG ( test) Ql (U) Negative Normal Negative [facility] Comment on above: Order Comment: Speci men Type: URINE SPECIMEN Result Comment: This test is intended to aid in the early detection of . Very dilute urine samples, as indicated by a low specific gravity, may not contain registration representative levels of hCG. This test detects intact hCG only. This test does not reliably detect hCG degradation products, including free-beta subunit and beta-core fragment. Therefore, this test may show reduced reactivity in urine after 8 weeks gestation. A number of conditions other than , including trophoblastic disease and certain non-trophoblastic neoplasms cause elevated levels of hCG. As with any assay employing mouse antibodies, the possibility exists for interference by human anti-mouse antibodies (HAMA) in the specimen. The test provides a presumptive diagnosis for . Performed By: #### 2 106-3 #### [facility] CLIA [id number] [address] [place] [address] [place] Lipase SerPl-cCncon 12-17-19 21 Lipase [Catalytic activity/Vol] 34 U/L Low 73-393 [facility] Comment on above: Order Comment: Speci men Type: BLOOD SPECIMEN Performed By: #### 3 040-3, 47359-4 #### [facility] CLIA [id number] [address] [place] [address] [place] SARS-CoV-2 RNA Resp Ql KEELEY+p robeon 12-16-2020 SARS-CoV-2 (COVID-19) RNA KEELEY+probe Ql (Resp) COVID 19 RESULT: SARS-CoV-2 (Agent of COVID-19) Not Detected by PCR. This test has been authorized by FDA under an Emergency Use Authorization (EUA) Normal [facility] Comment on above: Performed By: #### R APBVAG #### [facility] CLIA [id number] [address] FEMALE PELVIS TRANSABD LT Don 07-08-2021 US FEMALE PELVIS TRANSABD LTD * * *Final Report* * * DATE OF EXAM: Dec 16 2020 7:06PM AWU 1059 - US FEMALE PELVIS TRANSABD LTD / PROCEDURE REASON: Torsion of ovary and ovarian pedicle * * * * Physician Interpretation * * * * EXAMINATION: TRANSVAGINAL AND LIMITED TRANSABDOMINAL PELVIC ULTRASOUND CLINICAL HISTORY: Pain. Concern for torsion. TECHNIQUE: Sonography of the pelvis was performed by transvaginal and transabdominal (limited) techniques. Images were obtained and stored in a permanent archive. MQ: UFP_1 COMPARISON: CT abdomen and pelvis same day. Pelvic ultrasound 03/16/2016 RESULT: Uterus size: 6.7 x 3.2 x 4.9 cm -Orientation: Anteverted -Myometrium: Normal sonographic appearance. -Endometrial echo complex: 0.7 cm -Cervix: normal Right ovary: 7.0 x 5.2 x 4.7 cm 5.8 x 4.4 x 3.9 cm complex lesion with low level fairly homogeneous internal echogenicity, without internal vascularity, question focus of thickened septation vs. nodularity up to 3 mm Arterial and venous flow is present throughout the ovary on color Doppler imaging with normal spectral waveforms. Left ovary: 6.2 x 4.5 x 5.2 cm 5.1 x 3.5 x 4.4 cm complex hypoechoic relatively homogeneous lesion Arterial and venous flow is present throughout the left ovary on color Doppler imaging with normal spectral waveforms. Pelvis free fluid: Moderate amount of complex fluid IMPRESSION: Vascular flow present to both ovaries 5-6 cm complex ovarian lesions bilaterally. Appearance could reflect endometriomas. Complex cystic lesions cannot be excluded. Possibility of abscesses in the clinical setting of pelvic inflammatory disease in the differential. Clinical correlation is needed. Moderate complex pelvic free fluid reflecting either hemorrhagic or proteinaceous ascites A follow-up pelvic ultrasound in 6-12 weeks is recommended for the above findings ACTIONABLE RESULT: FOLLOW-UP Acuity: Findings: Female reproductive tract (pelvis, adnexa) Routing code: WH_1 Recommendation: US FEMALE PELVIS NON-OB NON TORSION ([id number]) Time Frame: 6-12 weeks COMMUNICATION: Results will be communicated with the ordering provider via [email or web address] staff message or phone message by [employer] within 2 business days of report finalization. Algorithms for management of incidental imaging findings can be found on the [facility] Intranet Sharepoint site at: [email or web address] ndi [email or web address]/Forms [email or web address] Reinforcing Rod Layer: VIKY Transcribe Date/Time: Dec 16 2020 7:36P Dictated by : KATEY FONTAINE MD This examination was interpreted and the report reviewed and electronically signed by: KATEY FONTAINE MD on Dec 16 2020 7:48PM EST [id number] ACTIONABLE Invalid Interpretation Code [facility] US FEMALE PELVIS TRANSVAGon 12-16-2020 US FEMALE PELVIS TRANSVAG * * *Final Report* * * DATE OF EXAM: Dec 16 2020 7:06PM AWU 1060 - US FEMALE PELVIS TRANSVAG / PROCEDURE REASON: Torsion of ovary and ovarian pedicle * * * * Physician Interpretation * * * * EXAMINATION: TRANSVAGINAL AND LIMITED TRANSABDOMINAL PELVIC ULTRASOUND CLINICAL HISTORY: Pain. Concern for torsion. TECHNIQUE: Sonography of the pelvis was performed by transvaginal and transabdominal (limited) techniques. Images were obtained and stored in a permanent archive. MQ: UFP_1 COMPARISON: CT abdomen and pelvis same day. Pelvic ultrasound 03/16/2016 RESULT: Uterus size: 6.7 x 3.2 x 4.9 cm -Orientation: Anteverted -Myometrium: Normal sonographic appearance. -Endometrial echo complex: 0.7 cm -Cervix: normal Right ovary: 7.0 x 5.2 x 4.7 cm 5.8 x 4.4 x 3.9 cm complex lesion with low level fairly homogeneous internal echogenicity, without internal vascularity, question focus of thickened septation vs. nodularity up to 3 mm Arterial and venous flow is present throughout the ovary on color Doppler imaging with normal spectral waveforms. Left ovary: 6.2 x 4.5 x 5.2 cm 5.1 x 3.5 x 4.4 cm complex hypoechoic relatively homogeneous lesion Arterial and venous flow is present throughout the left ovary on color Doppler imaging with normal spectral waveforms. Pelvis free fluid: Moderate amount of complex fluid IMPRESSION: Vascular flow present to both ovaries 5-6 cm complex ovarian lesions bilaterally. Appearance could reflect endometriomas. Complex cystic lesions cannot be excluded. Possibility of abscesses in the clinical setting of pelvic inflammatory disease in the differential. Clinical correlation is needed. Moderate complex pelvic free fluid reflecting either hemorrhagic or proteinaceous ascites A follow-up pelvic ultrasound in 6-12 weeks is recommended for the above findings ACTIONABLE RESULT: FOLLOW-UP Acuity: Findings: Female reproductive tract (pelvis, adnexa) Routing code: WH_1 Recommendation: US FEMALE PELVIS NON-OB NON TORSION ([id number]) Time Frame: 6-12 weeks COMMUNICATION: Results will be communicated with the ordering provider via [email or web address] staff message or phone message by [facility] within 2 business days of report finalization. Algorithms for management of incidental imaging findings can be found on the [facility] Intranet Sharepoint site at: [email or web address]%20Fi ndi ngs%20at%20Imaging/Forms [email or web address] Reinforcing Rod Layer: VIKY Transcribe Date/Time: Dec 16 2020 7:36P Dictated by : KATEY FONTAINE MD This examination was interpreted and the report reviewed and electronically signed by: KATEY FONTAINE MD on Dec 16 2020 7:48PM EST [id number] ACTIONABLE Invalid Interpretation Code [facility] Urinalysis complete panel (U )on 12-16-2020 Bacteria LM.HPF (Urine sed) [#/Area] Few Abnormal None Seen [facility] Comment on above: Order Comment: Speci men Type: URINE SPECIMEN Performed By: #### 2 4356-8 #### [facility] CLIA [id number] [address] [place] [address] [place] Bilirubin Ql (U) Negative Normal Negative [facility] Comment on above: Order Comment: Speci men Type: URINE SPECIMEN Performed By: #### 2 4356-8 #### [facility] CLIA [id number] [address] [address] [place] Clarity (Unsp spec) Clear Normal Clear [facility] Comment on above: Order Comment: Speci men Type: URINE SPECIMEN Performed By: #### 2 4356-8 #### [facility] CLIA [id number] [address] [place], [place] [address] [facility] Color (U) Yellow Normal Yellow [facility] Comment on above: Order Comment: Speci men Type: URINE SPECIMEN Performed By: #### 2 4356-8 #### [facility] CLIA [id number] [address] [place], [place] [address] [facility] Epithelial cells LM.HPF (Urine sed) [#/Area] Many Normal [facility] Comment on above: Order Comment: Speci men Type: URINE SPECIMEN Performed By: #### 2 4356-8 #### [facility] CLIA [id number] [address] [place], [place] [address] [facility] Glucose Test strip (U) [Mass/Vol] Negative Normal Negative [facility] Comment on above: Order Comment: Speci men Type: URINE SPECIMEN Performed By: #### 2 4356-8 #### [facility] CLIA [id number] [address] [place], [place] [address] [place] Hemoglobin Ql (U) 2+ Abnormal Negative [facility] Comment on above: Order Comment: Speci men Type: URINE SPECIMEN Performed By: #### 2 4356-8 #### [facility] CLIA [id number] [address] [place], [place] [address] [place] Ketones Ql (U) Trace Abnormal Negative [facility] Comment on above: Order Comment: Speci men Type: URINE SPECIMEN Performed By: #### 2 4356-8 #### [facility] CLIA [id number] [facility] [place] [address] [facility] Leukocyte esterase Test strip Ql (U) Trace Abnormal Negative [facility] Comment on above: Order Comment: Speci men Type: URINE SPECIMEN Performed By: #### 2 4356-8 #### [facility] CLIA [id number] [address] [place] [address] Nitrite Ql (U) Negative Normal Negative [facility] Comment on above: Order Comment: Speci men Type: URINE SPECIMEN Performed By: #### 2 4356-8 #### [facility] CLIA [id number] [address] [place] [address] pH (U) 6.5 [pH] Normal 5.0-8.0 [facility] Comment on above: Order Comment: Speci men Type: URINE SPECIMEN Performed By: #### 2 4356-8 #### [facility] CLIA [id number] [address] [place] [address] Protein (U) [Mass/Vol] Normal [facility] Comment on above: Order Comment: Speci men Type: URINE SPECIMEN Result Comment: Visi ble blood causes falsely elevated results for analyte Protein. Due to this limitation, Protein will not be reported for patients whose urine contains visible blood. Performed By: #### 2 4356-8 #### [facility] CLIA [id number] [address] [place] [address] RBC LM.HPF (Urine sed) [#/Area] 0-3 /HPF Normal 0-3 /HPF [facility] Comment on above: Order Comment: Speci men Type: URINE SPECIMEN Performed By: #### 2 4356-8 #### [facility] CLIA [id number] [address] [place] [address] Specific gravity (U) [Rel density] 1.010 Normal 1.005-1.030 [facility] Comment on above: Order Comment: Speci men Type: URINE SPECIMEN Performed By: #### 2 4356-8 #### [facility] CLIA [id number] [address] [place] [address] OF [facility] Urobilinogen Ql (U) 0.2 EU/dL Normal 0.2-1.0 EU/dL [facility] Comment on above: Order Comment: Speci men Type: URINE SPECIMEN Performed By: #### 2 4356-8 #### [facility] CLIA [id number] [address] [place] [address] WBC LM.HPF (Urine sed) [#/Area] 0-5 /HPF Normal 0-5 /HPF [facility] Comment on above: Order Comment: Speci men Type: URINE SPECIMEN Performed By: #### 2 4356-8 #### [facility] CLIA [id number] [address] [place] [address] RF Hysterosalpingography S/I on 12-14-2020 RF Hysterosalpingography S/I Patient Name: KATIE ROBB Fluoroscopy ACCESSION EXAM DATE/TIME PROCEDURE ORDERING PROVIDER [id number] 12/14/2020 12:40 EDT RF Hysterosalpingography PATTI BARRAZA S/I CPT code 20026 Reason For Exam (RF Hysterosalpingography S/I) z31.41 Report Hysterosalpingogram: 12/14/2020. CLINICAL INFORMATION: Infertility. FINDINGS: A hysterosalpingogram was performed by Dr. Barraza. 0.4 minutes of time was used for the examination. He submitted four fluoroscopic spot images for interpretation after cessation of the procedure. I was not present for the procedure. The uterine contour is normal. The fallopian tubes are normal in caliber. There is demonstration of free spill of contrast from the left fallopian tube. No demonstration of was documented from the right tube. Report Dictated on Final Dictated: 12/14/2020 12:50 pm Dictating Physician: MD MARTINEZ RISA Signed Date and Time: 12/14/2020 12:56 pm Signed by: MD MARTINEZ RISA Transcribed Date and Time: 12/14/2020 12:50 Normal [facility] Free Thyroxineon 09-28-2017 Thyroxine (T4) free 1.14 ng/dL Normal 0.76-1.46 [facility] Comment on above: Performed By: #### F T4 ####[facility] [place], [place] [address] TSH, 3rd generationon 2017 TSH, 3rd generation 1.190 uIU/mL Normal 0.358-3.740 [facility] Comment on above: Performed By: #### T SH3 ####[address] [address] Vital Signs Date Time Vital Sign Value Performing Clinician Facility 12-11-2024 14:56-0400 Body temperature 97.5 [degF] Nikko Guerrero MD Work Phone: 4(238)208-127689 [place] [address] 12-11-2024 14:56-0400 Diastolic blood pressure 60 mm[Hg] Nikko Guerrero MD Work Phone: 2(222)012-857789 [place] [address] 12-11-2024 14:56-0400 Heart rate 55 /min Nikko Guerrero MD Work Phone: 0(134)214-360889 [place] [address] 12-11-2024 14:56-0400 Respiratory rate 15 /min Nikko Guerrero MD Work Phone: 6(791)447-714689 [place] [address] 12-11-2024 14:56-0400 SaO2% (BldA) [Mass fraction] 100 % Nikko Guerrero MD Work Phone: 7(472)338-106189 [place] [address] 12-11-2024 14:56-0400 Systolic blood pressure 108 mm[Hg] Nikko Guerrero MD Work Phone: 9(111)359-907189 [place] [address] 12-05-2024 11:44-0400 Body height 170.18 cm Nikko Guerrero MD Work Phone: 2(346)950-983089 [place] [address] 12-05-2024 11:44-0400 Body mass index (BMI) [Ratio] 30.5 kg/m2 Nikko Guerrero MD Work Phone: 5(814)141-401389 [place] [address] 12-05-2024 11:44-0400 Body weight 88.56 kg Nikko Guerrero MD Work Phone: 6(923)012-489589 [place] [address] 12-05-2024 11:44-0400 Diastolic blood pressure 82 mm[Hg] Nikko Guerrero MD Work Phone: 2(038)085-929789 [place] [address] 12-05-2024 11:44-0400 Systolic blood pressure 116 mm[Hg] Nikko Guerrero MD Work Phone: [facility] 11-25-2024 15:17-0400 Body height 170.18 cm Nikko Guerrero MD Work Phone: [facility] 11-04-2024 15:20-0400 Body height 170.18 cm SHANNAN VAZQUEZ DO Work Phone: [facility] 11-04-2024 15:20-0400 Body mass index (BMI) [Ratio] 30.7 kg/m2 SHANNAN VAZQUEZ DO Work Phone: [facility] 11-04-2024 15:20-0400 Body weight 89.01 kg SHANNAN VAZQUEZ DO Work Phone: [facility] 11-04-2024 15:20-0400 Diastolic blood pressure 81 mm[Hg] SHANNAN VAZQUEZ DO Work Phone: [facility] 11-04-2024 15:20-0400 Systolic blood pressure 117 mm[Hg] SHANNAN VAZQUEZ DO Work Phone: [facility] 10-21-2024 14:58-0400 Body height 170.18 cm SHANNAN VAZQUEZ DO Work Phone: [facility] 10-21-2024 14:54-0400 Body mass index (BMI) [Ratio] 30.5 kg/m2 SHANNAN VAZQUEZ DO Work Phone: [facility] 10-21-2024 14:54-0400 Body weight 88.5 kg SHANNAN VAZQUEZ DO Work Phone: [facility] 10-21-2024 14:54-0400 Diastolic blood pressure 79 mm[Hg] SHANNAN VAZQUEZ DO Work Phone: [facility] 10-21-2024 14:54-0400 Systolic blood pressure 115 mm[Hg] SHANNAN VAZQUEZ DO Work Phone: [facility] 10-07-2024 14:44-0400 Body mass index (BMI) [Ratio] 30.3 kg/m2 SHANNAN VAZQUEZ DO Work Phone: [facility] 10-07-2024 14:44-0400 Body weight 87.77 kg SHANNAN VAZQUEZ DO Work Phone: [facility] 10-07-2024 14:44-0400 Diastolic blood pressure 84 mm[Hg] SHANNAN VAZQUEZ DO Work Phone: [facility] 10-07-2024 14:44-0400 Systolic blood pressure 121 mm[Hg] SHANNAN VAZQUEZ DO Work Phone: [facility] 10-06-2024 01:09-0400 Body temperature 98.2 [degF] SHANNAN VAZQUEZ DO Work Phone: [facility] 10-06-2024 01:09-0400 Diastolic blood pressure 83 mm[Hg] SHANNAN VAZQUEZ DO Work Phone: [facility] 10-06-2024 01:09-0400 Heart rate 83 /min SHANNAN VAZQUEZ DO Work Phone: [facility] 10-06-2024 01:09-0400 Respiratory rate 18 /min SHANNAN VAZQUEZ DO Work Phone: [facility] 10-06-2024 01:09-0400 SaO2% (BldA) [Mass fraction] 99 % SHANNAN VAZQUEZ DO Work Phone: [facility] 10-06-2024 01:09-0400 Systolic blood pressure 103 mm[Hg] SHANNAN VAZQUEZ DO Work Phone: [facility] 10-05-2024 21:56-0400 Body height 170.18 cm SHANNAN VAZQUEZ DO Work Phone: [facility] 10-05-2024 21:56-0400 Body mass index (BMI) [Ratio] 30.3 kg/m2 SHANNAN VAZQUEZ DO Work Phone: [facility] 10-05-2024 21:56-0400 Body weight 87.9 kg SHANNAN VAZQUEZ DO Work Phone: [facility] 07-22-2024 15:10-0500 Body mass index (BMI) [Ratio] 29.7 kg/m2 SHANNAN VAZQUEZ DO Work Phone: [facility] 07-22-2024 15:10-0500 Body weight 86.18 kg SHANNAN VAZQUEZ DO Work Phone: [facility] 07-22-2024 15:10-0500 Diastolic blood pressure 74 mm[Hg] SHANNAN VAZQUEZ DO Work Phone: [facility] 07-22-2024 15:10-0500 Systolic blood pressure 112 mm[Hg] SHANNAN VAZQUEZ DO Work Phone: [facility] 03-16-2023 13:28-0400 Body height 170.18 cm DO SHANNAN VAZQUEZ Work Phone: [facility] 03-16-2023 13:28-0400 Body mass index (BMI) [Ratio] 28.3 kg/m2 DO SHANNAN VAZQUEZ Work Phone: [facility] 03-16-2023 13:28-0400 Body weight 82.1 kg DO SHANNAN VAZQUEZ Work Phone: [facility] 03-16-2023 13:28-0400 Diastolic blood pressure 80 mm[Hg] DO SHANNAN VAZQUEZ Work Phone: [facility] 03-16-2023 13:28-0400 Systolic blood pressure 110 mm[Hg] DO SHANNAN VAZQUEZ Work Phone: [facility] 03-15-2023 14:41-0400 Body height 170.2 cm Deejay Glasgow PA-C Work Phone: [facility] [employer] 03-15-2023 14:41-0400 Body mass index (BMI) [Ratio] 28.35 kg/m2 Deejay Glasgow PA-C Work Phone: [facility] [employer] 03-15-2023 14:41-0400 Body temperature 98.91 [degF] Deejay Glasgow PA-C Work Phone: [facility] [employer] 03-15-2023 14:41-0400 Body weight 82.1 kg Deejay Glasgow PA-C Work Phone: [facility] 03-15-2023 14:41-0400 Diastolic blood pressure 68 mm[Hg] Deejay HILLMAN-Jake Work Phone: [facility] 03-15-2023 14:41-0400 Heart rate 70 /min Deejay Glasgow PA-C Work Phone: [facility] 03-15-2023 14:41-0400 SaO2% (BldA) [Mass fraction] 99 % Deejay Glasgow PA-C Work Phone: [facility] 03-15-2023 14:41-0400 Systolic blood pressure 99 mm[Hg] Deejay HILLMAN-Jake Work Phone: [facility] 02-27-2023 08:57-0400 Body temperature 99 [degF] DO SHANNAN VAZQUEZ Work Phone: [facility] 02-27-2023 08:57-0400 Diastolic blood pressure 71 mm[Hg] DO SHANNAN VAZQUEZ Work Phone: [facility] 02-27-2023 08:57-0400 Heart rate 74 /min DO SHANNAN VAZQUEZ Work Phone: [facility] 02-27-2023 08:57-0400 Respiratory rate 15 /min DO SHANNAN VAZQUEZ Work Phone: [facility] 02-27-2023 08:57-0400 SaO2% (BldA) [Mass fraction] 99 % DO SHANNAN VAZQUEZ Work Phone: [facility] 02-27-2023 08:57-0400 Systolic blood pressure 113 mm[Hg] DO SHANNAN VAZQUEZ Work Phone: [facility] 02-26-2023 05:58-0400 Body mass index (BMI) [Ratio] 30.4 kg/m2 DO SHANNAN VAZQUEZ Work Phone: [facility] 02-26-2023 05:58-0400 Body weight 88 kg DO SHANNAN VAZQUEZ Work Phone: [facility] 02-25-2023 11:00-0400 Diastolic blood pressure 66 mm[Hg] DO SHANNAN VAZQUEZ Work Phone: [facility] 02-25-2023 11:00-0400 Heart rate 71 /min DO SHANNAN VAZQUEZ Work Phone: [facility] 02-25-2023 11:00-0400 Respiratory rate 16 /min DO SHANNAN VAZQUEZ Work Phone: [facility] 02-25-2023 11:00-0400 SaO2% (BldA) [Mass fraction] 97 % DO SHANNAN VAZQUEZ Work Phone: [facility] 02-25-2023 11:00-0400 Systolic blood pressure 114 mm[Hg] DO SHANNAN VAZQUEZ Work Phone: [facility] 02-25-2023 10:34-0400 Body height 170.18 cm DO SHANNAN VAZQUEZ Work Phone: [facility] 02-25-2023 10:34-0400 Body mass index (BMI) [Ratio] 29.5 kg/m2 DO SHANNAN VAZQUEZ Work Phone: 2(974)196-798885 [place] [address] 02-25-2023 10:34-0400 Body weight 85.6 kg DO SHANNAN VAZQUEZ Work Phone: 1(736)091-596385 [place] [address] 02-25-2023 06:57-0400 Body temperature 97.8 [degF] DO SHANNAN VAZQUEZ Work Phone: [facility] 02-04-2023 13:32-0400 Body temperature 96.7 [degF] DO SHANNAN VAZQUEZ Work Phone: [facility] 02-04-2023 13:32-0400 Diastolic blood pressure 75 mm[Hg] DO SHANNAN VAZQUEZ Work Phone: [facility] 02-04-2023 13:32-0400 Heart rate 103 /min DO SHANNAN VAZQUEZ Work Phone: [facility] 02-04-2023 13:32-0400 Respiratory rate 17 /min DO SHANNAN VAZQUEZ Work Phone: [facility] 02-04-2023 13:32-0400 Systolic blood pressure 134 mm[Hg] DO SHANNAN VAZQUEZ Work Phone: [facility] 02-03-2023 16:30-0400 SaO2% (BldA) [Mass fraction] 99 % DO SHANNAN VAZQUEZ Work Phone: [facility] 02-01-2023 19:35-0400 Body mass index (BMI) [Ratio] 33 kg/m2 DO SHANNAN VAZQUEZ Work Phone: [facility] 02-01-2023 19:35-0400 Body weight 95.88 kg DO SHANNAN VAZQUEZ Work Phone: 7(787)655-312085 [place] [address] 01-29-2023 14:37-0400 Body mass index (BMI) [Ratio] 32.1 kg/m2 DO SHANNAN VAZQUEZ Work Phone: 1(499)126-942285 [place] [address] 01-29-2023 14:37-0400 Body weight 95.82 kg DO SHANNAN VAZQUEZ Work Phone: 3(775)202-398885 [place] [address] 01-29-2023 14:37-0400 Diastolic blood pressure 84 mm[Hg] DO SHANNAN VAZQUEZ Work Phone: 7(901)331-978985 [place] [address] 01-29-2023 14:37-0400 Systolic blood pressure 124 mm[Hg] DO SHANNAN VAZQUEZ Work Phone: [facility] 01-22-2023 10:06-0400 Body height 172.72 cm Shannan PHELPS Work Phone: [facility] 01-22-2023 10:06-0400 Body mass index (BMI) [Ratio] 31.4 kg/m2 Shannan PHELPS Work Phone: 8(452)115-981185 [place] [address] 01-22-2023 10:06-0400 Body weight 93.66 kg Shannan PHELPS Work Phone: [facility] 01-22-2023 10:06-0400 Diastolic blood pressure 83 mm[Hg] Shannan HPELPS Work Phone: [facility] 01-22-2023 10:06-0400 Systolic blood pressure 122 mm[Hg] Shannan PHELPS Work Phone: [facility] 01-16-2023 09:31-0400 Body mass index (BMI) [Ratio] 32.3 kg/m2 Shannan PHELPS Work Phone: [facility] 01-16-2023 09:31-0400 Body temperature 99.3 [degF] Shannan PHELPS Work Phone: [facility] 01-16-2023 09:31-0400 Body weight 96.61 kg Shannan PHELPS Work Phone: [facility] 01-16-2023 09:31-0400 Diastolic blood pressure 64 mm[Hg] Shannan PHELPS Work Phone: [facility] 01-16-2023 09:31-0400 Heart rate 126 /min Shannan PHELPS Work Phone: [facility] 01-16-2023 09:31-0400 Respiratory rate 16 /min Shannan PHELPS Work Phone: [facility] 01-16-2023 09:31-0400 SaO2% (BldA) [Mass fraction] 98 % Shannan PHELPS Work Phone: [facility] 01-16-2023 09:31-0400 Systolic blood pressure 98 mm[Hg] Shannan PHELPS Work Phone: [facility] 01-10-2023 15:49-0400 Body height 172.72 cm Shannan PHELPS Work Phone: [facility] 01-10-2023 15:47-0400 Body mass index (BMI) [Ratio] 32.4 kg/m2 Shannan PHELPS Work Phone: [facility] 01-10-2023 15:47-0400 Body weight 96.84 kg Shannan PHELPS Work Phone: [facility] 01-10-2023 15:47-0400 Diastolic blood pressure 77 mm[Hg] Shannan PHELPS Work Phone: [facility] 01-10-2023 15:47-0400 Systolic blood pressure 115 mm[Hg] Shannan PHELPS Work Phone: [facility] 12-27-2022 15:54-0400 Body mass index (BMI) [Ratio] 32.3 kg/m2 Shannan PHELPS Work Phone: [facility] 12-27-2022 15:54-0400 Body weight 96.38 kg Shannan PHELPS Work Phone: [facility] 12-27-2022 15:54-0400 Diastolic blood pressure 79 mm[Hg] Shannan PHELPS Work Phone: [facility] 12-27-2022 15:54-0400 Systolic blood pressure 121 mm[Hg] Shannan PHELPS Work Phone: [facility] 12-14-2022 15:37-0400 Body mass index (BMI) [Ratio] 31.6 kg/m2 Shannan PHELPS Work Phone: [facility] 12-14-2022 15:37-0400 Body weight 94.46 kg Shannan PHELPS Work Phone: 5(320)667-649785 [place] [address] 12-14-2022 15:37-0400 Diastolic blood pressure 74 mm[Hg] Shannan PHELPS Work Phone: [facility] 12-14-2022 15:37-0400 Systolic blood pressure 118 mm[Hg] Shannan PHELPS Work Phone: [facility] 11-29-2022 15:37-0400 Body height 172.72 cm Shannan PHELPS Work Phone: [facility] 11-29-2022 15:37-0400 Body mass index (BMI) [Ratio] 31.5 kg/m2 Shannan PHELPS Work Phone: [facility] 11-29-2022 15:37-0400 Body weight 94.06 kg Shannan PHELPS Work Phone: [facility] 11-29-2022 15:37-0400 Diastolic blood pressure 83 mm[Hg] Shannan PHELPS Work Phone: [facility] 11-29-2022 15:37-0400 Systolic blood pressure 118 mm[Hg] Shannan PHELPS Work Phone: [facility] 10-25-2022 11:41-0400 Body mass index (BMI) [Ratio] 30.4 kg/m2 Shannan PHELPS Work Phone: [facility] 10-25-2022 11:41-0400 Body weight 90.77 kg Shannan PHELPS Work Phone: [facility] 10-25-2022 11:41-0400 Diastolic blood pressure 90 mm[Hg] Shannan PHELPS Work Phone: [facility] 10-25-2022 11:41-0400 Systolic blood pressure 124 mm[Hg] Shannan PHELPS Work Phone: 3(472)857-963185 [place] [address] 09-27-2022 11:41-0400 Body weight 89.58 kg Shannan PHELPS Work Phone: 2(245)098-983085 [place] [address] 09-27-2022 11:41-0400 Diastolic blood pressure 72 mm[Hg] Shannan PHELPS Work Phone: 1(163)387-638185 [place] [address] 09-27-2022 11:41-0400 Systolic blood pressure 127 mm[Hg] Shannan PHELPS Work Phone: [facility] 09-26-2022 10:02-0400 Body temperature 98.2 [degF] Shannan PHELPS Work Phone: [facility] 09-26-2022 10:02-0400 Body weight 90.32 kg Shannan PHELPS Work Phone: [facility] 09-26-2022 10:02-0400 Diastolic blood pressure 76 mm[Hg] Shannan PHELPS Work Phone: [facility] 09-26-2022 10:02-0400 Heart rate 98 /min Shannan PHELPS Work Phone: [facility] 09-26-2022 10:02-0400 Respiratory rate 16 /min Shannan PHELPS Work Phone: [facility] 09-26-2022 10:02-0400 SaO2% (BldA) [Mass fraction] 98 % Shannan PHELPS Work Phone: [facility] 09-26-2022 10:02-0400 Systolic blood pressure 113 mm[Hg] Shannan PHELPS Work Phone: [facility] 08-29-2022 10:20-0400 Body height 172.72 cm Shannan PHELPS Work Phone: [facility] 08-29-2022 10:20-0400 Body mass index (BMI) [Ratio] 28.8 kg/m2 Shannan PHELPS Work Phone: [facility] 08-29-2022 10:20-0400 Body weight 86.18 kg Shannan PHELPS Work Phone: [facility] 08-29-2022 10:20-0400 Diastolic blood pressure 82 mm[Hg] Shannan PHELPS Work Phone: [facility] 08-29-2022 10:20-0400 Systolic blood pressure 124 mm[Hg] Shannan PHELPS Work Phone: [facility] 08-22-2022 09:28-0400 Body mass index (BMI) [Ratio] 28.8 kg/m2 Shannan PHELPS Work Phone: [facility] 08-22-2022 09:28-0400 Body temperature 98.2 [degF] Shannan PHELPS Work Phone: [facility] 08-22-2022 09:28-0400 Body weight 86.18 kg Shannan PHELPS Work Phone: [facility] 08-22-2022 09:28-0400 Diastolic blood pressure 68 mm[Hg] Shannan PHELPS Work Phone: [facility] 08-22-2022 09:28-0400 Heart rate 114 /min Shannan PHELPS Work Phone: 2(234)853-779385 [place] [address] 08-22-2022 09:28-0400 Respiratory rate 14 /min Shannan PHELPS Work Phone: [facility] 08-22-2022 09:28-0400 SaO2% (BldA) [Mass fraction] 98 % Shannan PHELPS Work Phone: [facility] 08-22-2022 09:28-0400 Systolic blood pressure 102 mm[Hg] Shannan PHELPS Work Phone: 1(322)773-794985 [place] [address] 08-08-2022 11:01-0500 Diastolic blood pressure 77 mm[Hg] Shannan PHELPS Work Phone: 3(168)888-982785 [place] [address] 08-08-2022 11:01-0500 Systolic blood pressure 118 mm[Hg] Shannan PHELPS Work Phone: 8(512)769-362685 [place] [address] 08-08-2022 10:39-0500 Body mass index (BMI) [Ratio] 29.2 kg/m2 Shannan PHELPS Work Phone: 3(036)912-104185 [place] [address] 08-08-2022 10:39-0500 Body weight 84.53 kg Shannan PHELPS Work Phone: 8(665)050-864185 [place] [address] 07-11-2022 10:45-0500 Body height 170.18 cm Shannan Vazquez Work Phone: [facility] 07-11-2022 10:45-0500 Body mass index (BMI) [Ratio] 28.1 kg/m2 Shannan Vazquez Work Phone: 8(814)468-426185 [place] [address] 07-11-2022 10:45-0500 Body weight 81.64 kg Shannan Vazquez Work Phone: [facility] 07-11-2022 10:45-0500 Diastolic blood pressure 86 mm[Hg] Shannan Vazquez Work Phone: [facility] 07-11-2022 10:45-0500 Systolic blood pressure 124 mm[Hg] Shannan Vazquez Work Phone: [facility] 04-06-2021 14:51-0400 Diastolic blood pressure 70 mm[Hg] Kalina Mccullough MD Work Phone: [facility] Work Phone: 04-06-2021 14:51-0400 Heart rate 69 /min Kalina Mccullough MD Work Phone: [facility] Work Phone: 04-06-2021 14:51-0400 Respiratory rate 16 /min Kalina Mccullough MD Work Phone: [facility] Work Phone: 04-06-2021 14:51-0400 SaO2% (BldA) [Mass fraction] 100 % Kalina Mccullough MD Work Phone: [facility] Work Phone: 04-06-2021 14:51-0400 Systolic blood pressure 102 mm[Hg] Kalina Mccullough MD Work Phone: [facility] Work Phone: 04-06-2021 12:46-0400 Body height 170.2 cm Kalina Mccullough MD Work Phone: [facility] Work Phone: 04-06-2021 12:46-0400 Body mass index (BMI) [Ratio] 25.06 kg/m2 Kalina Mccullough MD Work Phone: [facility] Work Phone: 04-06-2021 12:46-0400 Body temperature 97.59 [degF] Kalina Mccullough MD Work Phone: [facility] Work Phone: 04-06-2021 12:46-0400 Body weight 72.58 kg Kalina Mccullough MD Work Phone: [facility] Work Phone: Encounters Encounter Date Encounter Type Care Provider Facility Start: 12-16-2024 End: 12-16-[address] Aruna Gomez [place] -[facility] Work Phone: Start: 12-16-2024 End: 12-16-2024 ambulatory Nikko Guerrero MD Work Phone: -[facility] Start: 12-11-2024 End: 12-11-2024 Patient encounter procedure Bharathi Moreno [place] -[facility] Work Phone: Start: 12-11-2024 End: 12-11-2024 ambulatory Nikko Guerrero MD Work Phone: -[facility] Start: 12-11-2024 End: 12-11-[address] Aruna Gomez [place] -[facility] Work Phone: Start: 12-11-2024 End: 12-11-2024 ambulatory Nikko Guerrero MD Work Phone: -[facility] Start: 12-05-2024 End: 12-05-2024 Patient encounter procedure Nick Cordon [facility] -[facility] Work Phone: Start: 12-05-2024 End: 12-05-2024 ambulatory Nikko Guerrero MD Work Phone: -[facility] Start: 11-26-2024 End: 11-26-[address] Aruna Gomez [place] -[facility] Work Phone: Start: 11-26-2024 End: 11-26-2024 ambulatory Nikko Guerrero MD Work Phone: [facility] Work Phone: Start: 11-04-2024 End: 11-04-2024 Patient encounter procedure Niya GATES -[facility] Work Phone: Start: 11-04-2024 End: 11-04-2024 ambulatory SHANNAN VAZQUEZ DO Work Phone: [facility] Work Phone: Start: 10-21-2024 End: 10-21-[address] Nat Gomez MD -[facility] Work Phone: Start: 10-21-2024 End: 10-21-2024 ambulatory SHANNAN VAZQUEZ DO Work Phone: [facility] Work Phone: Start: 10-21-2024 End: 10-21-2024 ambulatory Tatyana [place] Facility:[facility] Start: 10-07-2024 End: 10-07-2024 Patient encounter procedure Niya Armstrong CNM -Laboratory, Specimen Work Phone: Start: 10-07-2024 End: 10-07-2024 Patient encounter procedure Niya Armstrong CNM -[facility] Work Phone: Start: 10-07-2024 End: 10-07-2024 ambulatory Tatyana Paxton Facility:[facility] Start: 10-07-2024 End: 10-07-2024 ambulatory Tatyana Gonzalezlay Facility:[facility] Start: 10-05-2024 End: 10-06-2024 Emergency department patient visit SHANNAN VAZQUEZ DO Work Phone: -Emergency Department Work Phone: Start: 07-22-2024 End: 07-22-[address] Aruna Gomez [place] -[facility] Work Phone: Start: 07-22-2024 End: 07-22-2024 ambulatory Aruna Gomez Facility:[facility] Start: 05-01-2024 End: 05-01-2024 ambulatory Tatyana [place] Facility:[facility] Start: 03-28-2024 Encounter for gynecological examination (general) (routine) without abnormal findings Niya Armstrong [facility] Start: 03-28-2024 End: 03-28-2024 ambulatory Joseph HILLMAN Facility:[facility] Start: 03-27-2024 End: 03-27-2024 ambulatory SHANNAN VAZQUEZ Facility:[facility] Start: 03-27-2024 End: 03-27-2024 ambulatory SHANNAN VAZQUEZ Facility:[facility] Start: 10-05-2023 End: 10-05-2023 ambulatory DO SHANNAN VAZQUEZ Work Phone: [facility] Work Phone: Start: 10-05-2023 End: 10-05-2023 Patient encounter procedure DO SHANNAN VAZQUEZ Work Phone: [facility]-Laboratory Work Phone: Start: 06-18-2023 Non-patient / Non-visit DO CHR VASU VAZQUEZ Work Phone: [facility] Start: 06-15-2023 End: 06-15-2023 ambulatory DO SHANNAN VAZQUEZ Work Phone: [facility] Work Phone: Start: 06-15-2023 End: 06-15-2023 Patient encounter procedure DO SHANNAN VAZQUEZ Work Phone: [facility]-Pulmonary Services/Neurology Work Phone: Start: 03-16-2023 End: 03-16-2023 Patient encounter procedure DO SHANNAN VAZQUEZ Work Phone: [facility] Work Phone: Start: 03-15-2023 End: 03-15-2023 ambulatory DEEJAY GLASGOW [facility] Start: 03-15-2023 End: 03-15-2023 Office outpatient visit 15 minutes Deejay Phamo LORENE Work Phone: [facility] Comment on above: Bronchospasm (Primar y Dx); Flu vaccine need Start: 03-14-2023 ambulatory Sariah Parker RN [facility] Clinical Communication Start: 03-14-2023 Patient encounter procedure Sariah Parker RN [facility] Clinical Communication Start: 02-27-2023 Non-patient / Non-visit DO CHR MARYLINMOSES TAYLOR Work Phone: [facility] Work Phone: Start: 02-27-2023 Non-patient / Non-visit DO CHR MARYLINMOSES TAYLOR Work Phone: [facility] Start: 02-26-2023 Non-patient / Non-visit DO CHR VASU TAYLOR Work Phone: [facility] Work Phone: Start: 02-26-2023 Non-patient / Non-visit DO CHR ISMOSES VAZQUEZ Work Phone: [facility] Start: 02-25-2023 Non-patient / Non-visit DO CHR ISMOSES VAZQUEZ Work Phone: [facility] Work Phone: Start: 02-25-2023 End: 02-27-2023 Evaluation and management of inpatient DO SHANNAN VAZQUEZ Work Phone: [facility] Work Phone: Start: 02-25-2023 Non-patient / Non-visit DO CHR ISMOSES VAZQUEZ Work Phone: [facility] Start: 02-25-2023 Admission to [facility] DO SHANNAN VAZQUEZ [facility] Work Phone: Start: 02-25-2023 ambulatory DO SHANNAN SRIVASTAVA Work Phone: [facility] Work Phone: Start: 02-04-2023 Non-patient / Non-visit DO CHR ISMOSES VAZQUEZ Work Phone: [facility] Start: 02-03-2023 Non-patient / Non-visit DO CHR VASU VAZQUEZ Work Phone: [facility] Start: 02-02-2023 Non-patient / Non-visit DO CHR ISMOSES VAZQUEZ Work Phone: [facility] Start: 02-01-2023 End: 02-04-2023 Evaluation and management of inpatient DO SHANNAN VAZQUEZ Work Phone: [facility] Work Phone: Start: 01-29-2023 End: 01-29-2023 Patient encounter procedure DO SHANNAN VAZQUEZ Work Phone: [facility] Work Phone: Start: 01-22-2023 End: 01-22-2023 Patient encounter procedure Shannan PHELPS Work Phone: [facility] Work Phone: Start: 01-22-2023 End: 01-22-2023 ambulatory Shannan PHELPS Work Phone: [facility] Work Phone: Start: 01-22-2023 End: 01-22-2023 Patient encounter procedure Shannan PHELPS Work Phone: [facility]Outpatient Pav[facility] Ultrasound Work Phone: Start: 01-16-2023 End: 01-16-2023 Patient encounter procedure Shannan PHELPS Work Phone: [facility] Work Phone: Start: 01-10-2023 End: 01-10-2023 ambulatory Shannan PHELPS Work Phone: [facility] Work Phone: Start: 01-10-2023 End: 01-10-2023 Patient encounter procedure Shannan PHELPS Work Phone: [facility]-Laboratory, Specimen Work Phone: Start: 01-10-2023 End: 01-10-2023 Patient encounter procedure Shannan PHELPS Work Phone: [facility] Work Phone: Start: 12-27-2022 End: 12-27-2022 Patient encounter procedure Shannan PHELPS Work Phone: [facility] Work Phone: Start: 12-14-2022 End: 12-14-2022 Patient encounter procedure Shannan PHELPS Work Phone: [facility] Work Phone: Start: 12-01-2022 Non-patient / Non-visit Kishan PHELPS Work Phone: [facility] Start: 12-01-2022 End: 12-01-2022 ambulatory Shannan PHELPS Work Phone: [facility] Work Phone: Start: 12-01-2022 End: 12-01-2022 Patient encounter procedure Shannan PHELPS Work Phone: [facility]-Cardiovascular Services Start: 11-29-2022 End: 11-29-2022 ambulatory Shannan PHELPS Work Phone: [facility] Work Phone: Start: 11-29-2022 End: 11-29-2022 Patient encounter procedure Shannan PHELPS [facility] Phone[facility] Start: 11-16-2022 End: 11-16-2022 Patient encounter procedure Shannan PHELPS Work Phone: [facility]-Outpatient Pavilion Ultrasound Start: 10-26-2022 End: 10-26-2022 Patient encounter procedure Shannan PHELPS Work Phone: [facility]-Laboratory, [place] Start: 10-25-2022 End: 10-25-2022 Patient encounter procedure Shannan PHELPS Work Phone: [facility]-Laboratory, Specimen Start: 10-25-2022 End: 10-25-2022 Patient encounter procedure Shannan PHELPS Work Phone: [facility] Women[facility] Start: 09-27-2022 End: 09-27-2022 Patient encounter procedure Shannan PHELPS Work Phone: [facility] Wom[facility] Start: 09-26-2022 End: 09-26-2022 Patient encounter procedure Shannan PHELPS Work Phone: [facility] Endocrinology Start: 09-21-2022 End: 09-21-2022 Patient encounter procedure Shannan PHELPS Work Phone: [facility]-Outpatient Pavilion Ultrasound Start: 08-29-2022 End: 08-29-2022 ambulatory Shannan PHELPS Work Phone: [facility] Work Phone: Start: 08-29-2022 End: 08-29-2022 Patient encounter procedure Shannan PHELPS Work Phone: [facility] Start: 08-29-2022 End: 08-29-2022 Patient encounter procedure Shannan PHELPS Work Phone: [facility] Start: 08-22-2022 End: 08-22-2022 Patient encounter procedure [facility]annan PHELPS [facility] Start: 08-08-2022 End: 08-08-2022 Patient encounter procedure Shannan PHELPS Work Phone: [facility] Start: 07-17-2022 End: 07-17-2022 ambulatory Shannan Vazquez Work Phone: [facility] Work Phone: Start: 07-17-2022 End: 07-17-2022 Patient encounter procedure Shannan Vazquez Work Phone: [facility] Start: 07-13-2022 Non-patient / Non-visit Kishan Vazquez Work Phone: [facility] Start: 07-11-2022 End: 07-11-2022 Patient encounter procedure Shannan Vazquez [facility] Start: 07-11-2022 End: 07-11-2022 Patient encounter procedure Shannan Vazquez Work Phone: [facility] Start: 04-25-2022 End: 04-25-2022 Patient encounter procedure Shannan Vazquez [facility] Start: 04-12-2022 ambulatory Pt States None PCP Faci lity:[facility] Start: 04-12-2022 End: 04-12-2022 ambulatory LORI WILLIAMSON [facility] Start: 03-27-2022 End: 03-27-2022 ambulatory [facility] Work Phone: Start: 03-27-2022 End: 03-27-2022 Patient encounter procedure [facility]Labor[facility] Start: 03-23-2022 Patient encounter procedure [facility] Start: 03-23-2022 Registered [facility] Start: 02-06-2022 Registered Recurring Wo keith [facility] Start: 08-01-2021 End: 08-01-2021 Subsequent hospital visit by physician Laurence Golden MD Work Phone: [facility] Start: 04-06-2021 End: 04-06-2021 Subsequent hospital visit by physician Kalina Mccullough MD Work Phone: [facility] [address] End[facility] Comment on above: Arrived Start: 03-01-2021 End: 03-01-2021 Subsequent hospital visit by physician Laurence Golden MD Work Phone: [facility] Comment on above: Arrived Start: 09-28-2017 End: 09-29-2017 Ambulatory RACHNA ALVAREZ [facility] Cancer cervix - screening done Damon Koch [facility] Work Phone: Procedures Date Procedure Procedure Detail Performing Clinician Start: 10-21-2024 Hepatitis C antibody measurement SHANNAN VAZQUEZ DO Work Phone: Comment on above: Reactive: Presumptiv e evidence of antibodies to HCV. Follow CDC recommendations for supplemental testing.Non-Reactive: Antibodies to HCV were not detected; does not exclude the possibility of exposure to HCVReactive Results are presumptive evidence of antibodies to HCV. Follow CDC recommendations for supplemental testing.Order confirmation testing: HCV Quant by PCR testing - HCVPCR #[id number] Non Reactive: < 0.8 Equivocal: >/= 0.8 to < 1.0 Reactive: >/= 1.0The CDC requires that a reactive/equivocal HCV antibody result be sent out for confirmation. HCV Quant by PCR testing. Start: 10-21-2024 Procedure SHANNAN VAZQUEZ DO Work Phone: Start: 10-21-2024 Rubella IgG measurement SHANNAN VAZQUEZ DO Work Phone: Comment on above: Antibody Result: Int erpretationNon-Reactive: Non- ImmuneReactive: ImmuneThe following results were obtained with the [employer] Rubella IgG assay. Results from assays of other manufacturers cannot be used interchangeably. Start: 10-21-2024 Serologic test for syphilis SHANNAN VAZQUEZ DO Work Phone: Start: 10-07-2024 Urine culture SHANNAN VAZQUEZ DO Work Phone: Start: 10-05-2024 Estimated creatinine clearance SHANNAN VAZQUEZ DO Work Phone: Start: 10-05-2024 Reactive lymphocyte count SHANNAN VAZQUEZ DO Work Phone: Start: 10-05-2024 Transvaginal obstetr ic ultrasonography SHANNAN VAZQUEZ DO Work Phone: Start: 10-05-2023 Bacterial nucleic acid assay DO SHANNAN VAZQUEZ Work Phone: Start: 10-05-2023 Chlamydia trachomatis (PCR) DO SHANNAN VAZQUEZ Work Phone: Start: 02-25-2023 Dilation and curetta ge of uterus DO SHANNAN VAZQUEZ Work Phone: Start: 02-25-2023 Transvaginal echography DO SHANNAN VAZQUEZ Work Phone: Start: 01-22-2023 Ultrasound scan for growth Shannan PHELPS Work Phone: Start: 01-10-2023 Group B Streptococcu s Culture Shannan PHELPS Work Phone: Start: 12-01-2022 Ultrasonography of limb Shannan PHELPS Work Phone: Start: 11-16-2022 Ultrasonography for antepartum monitoring of fetus Shannan PHELPS Work Phone: Start: 10-26-2022 Urine culture Shannan PHELPS Work Phone: Start: 10-25-2022 Cytopathology proced ure, preparation of smear, genital source Shannan PHELPS Work Phone: Start: 10-25-2022 Investigation of tra nsfusion reaction Shannan PHELPS Work Phone: Start: 09-21-2022 Transvaginal obstetr ic ultrasonography Shannan PHELPS Work Phone: Start: 09-21-2022 anatomy study Chr vasu PHELPS Work Phone: Start: 04-06-2021 Colonoscopy 3m Scannin g Cytopathology proced ure, preparation of smear, genital source Shannan PHELPS Work Phone: Investigation of tra nsfusion reaction Shannan PHELPS Work Phone: Tonsillectomy Damon August Urine culture Shannan noe Work Phone: Urine culture Shannan Jesus noe OLS Work Phone: Plan of Treatment Date Care Activity Detail Author Start: 01-18-2042 Zoster Vaccines (1 of 2) Zoste r Vaccines (1 of 2) [facility] Start: 11-29-2032 DTaP/Tdap/Td Vaccine s (8 - Td or Tdap) DTaP/Tdap/Td Vaccines (8 - Td or Tdap) [facility] Start: 10-21-2024 CBC W Auto Different ial panel - Blood [facility] Start: 10-21-2024 Hepatitis C antibody measurement [facility] Start: 10-21-2024 Procedure [facility] Start: 10-21-2024 Rubella IgG measurement [facility] Start: 10-21-2024 Serologic test for syphilis [facility] Start: 10-21-2024 [facility] Start: 10-06-2024 [facility] Start: 01-20-2024 DTaP/Tdap/Td vaccine (7 - Td or Tdap) DTaP/Tdap/Td vaccine (7 - Td or Tdap) [facility] Start: 03-15-2023 End: 03-15-2024 XR Chest 2 Views XR chest 2 views Imaging Routine Bronchospasm Expected: 03/15/2023, Expires: 03/15/2024 [facility] Comment on above: Expected: 03/15/2023 , Expires: 03/15/2024 Start: 02-27-2023 Patient discharge [facility] Start: 02-26-2023 Administration of bl ood product [facility] Start: 02-26-2023 Transfusion of red b lood cells [facility] Start: 02-25-2023 End: 02-26-2023 [facility] Start: 02-25-2023 Administration of bl ood product [facility] Start: 02-25-2023 Application of intermittent pneumatic compression device [facility] Start: 02-25-2023 Administration of medication [facility] Start: 02-25-2023 Application of ice c ollar, cap or bag [facility] Start: 02-25-2023 Application of intermittent pneumatic compression device [facility] Start: 02-25-2023 Catheterization of vein [facility] Start: 02-25-2023 Introduction of urin jaquelin catheter [facility] Start: 02-25-2023 Measuring intake and output [facility] Start: 02-25-2023 Notification of physician [facility] Start: 02-25-2023 Procedure discontinued [facility] Start: 02-25-2023 Provision of activit y privileges [facility] Start: 02-25-2023 Vital signs measurements [facility] Start: 02-25-2023 Admission procedure [facility] Start: 02-25-2023 Dilation and curetta ge of uterus Dilation and Curettage, Suction (Not Applicable) [facility] Start: 02-09-2023 Influenza vaccination Influenza Vacc ine (#1) [facility] Start: 02-04-2023 Patient discharge [facility] Start: 02-02-2023 Administration of medication [facility] Start: 02-02-2023 Application of ice c ollar, cap or bag [facility] Start: 02-02-2023 Catheterization of vein [facility] Start: 02-02-2023 Introduction of urin jaquelin catheter [facility] Start: 02-02-2023 Measuring intake and output [facility] Start: 02-02-2023 Notification of physician [facility] Start: 02-02-2023 Procedure discontinued [facility] Start: 02-02-2023 Provision of activit y privileges [facility] Start: 02-02-2023 Vital signs measurements [facility] Start: 02-02-2023 [facility] Start: 02-01-2023 Admission procedure [facility] Start: 08-29-2022 Procedure [facility] Start: 01-18-2022 Screening for malign ant neoplasm of cervix [facility] Start: 06-24-2021 COVID-19 Vaccine (4 - Moderna series) COVID-19 Vaccine (4 - Moderna series) [facility] Start: 04-06-2021 End: 04-06-2021 Patient encounter procedure 04/06/2021 Appointment IP Unit Kalina Mccullough MD [address] [place] [address] [place] [address] [phone] [facility] Start: 02-09-2021 Influenza vaccination Flu vaccine (# 1) [facility] Work Phone: Start: 07-27-2014 Hepatitis B Vaccines (3 of 3 - 3-dose series) Hepatitis B Vaccines (3 of 3 - 3-dose series) [facility] Start: 02-16-2014 Hepatitis B vaccine (2 of 3 - 3-dose primary series) Hepatitis B vaccine (2 of 3 - 3-dose primary series) [facility] Start: 01-18-2013 Screening for malign ant neoplasm of cervix Pap smear [facility] Start: 01-18-2010 Diabetes mellitus screening Diabetes Screening [facility] Start: 01-18-2010 Hepatitis C screening Hepatitis C Sc reening [facility] Start: 01-18-2007 HIV screening HIV screen [facility] Start: 2004 COVID-19 Vaccine (1) COVID-19 Vaccin e (1) [facility] Work Phone: Start: 2004 Depression Screen Depression Screen [facility] Start: 2004 Depression Screening Depression Scre ening [facility] Start: 01-18-1997 COVID-19 Vaccine (1) COVID-19 Vaccin e (1) [facility] Start: 1992 Hepatitis C screening Hepatitis C sc reen [facility] Start: 1992 HIV screening [facility] Screening [facility] Start: 1992 Thyroid stimulating hormone measurement TSH Level [facility] Complete PFT study Complete PFT study PFT Routine Bronchospasm Ordered: 03/15/2023 [employer] Work Phone: Comment on above: Ordered: 03/15/2023 Erythrocyte mean corpuscular volume determination [facility] anatomy study [facility] Hematocrit [Volume Fraction] of Blood [facility] Hemoglobin [Mass/vol ume] in Blood [facility] Hepatitis B virus sanchez rface Ag [Presence] in Serum [facility] Leukocytes [#/volume ] in Blood [facility] Mean corpuscular hemoglobin concentration determination [facility] Mean corpuscular hemoglobin determination [facility] Neutrophil count [facility] Neutrophil percent differential count [facility] Patient Education [facility] Work Phone: Patient referral [facility] Work Phone: Platelets [#/volume] in Blood [facility] Red blood cell count [facility] Red cell distributio n width determination [facility] T4 free measurement [facility] Thyroid stimulating hormone measurement [facility] Thyroperoxidase Ab [Units/volume] in Serum or Plasma [facility] Ultrasound scan for growth [facility] End: 03-01-2021 US 3D RENDERING W/O POST PROCEDURE US 3D RENDERING W/O POST PROCEDURE Imaging Routine Once for 1 Occurrences starting 03/01/2021 until 03/01/2021 [employer] Work Phone: Comment on above: Once for 1 Occurrenc es starting 03/01/2021 until 03/01/2021 US 3D RENDERING W/O POST PROCEDURE US 3D RENDERING W/O POST PROCEDURE Imaging Routine 03/01/2021 9:30 AM EDT [employer] Work Phone: End: 03-01-2021 US NON OB TRANSVAGINAL US NON OB TRANSVAGINAL Imaging Routine Once for 1 Occurrences starting 03/01/2021 until 03/01/2021 [employer] Work Phone: Comment on above: Once for 1 Occurrenc es starting 03/01/2021 until 03/01/2021 US NON OB TRANSVAGINAL US NON OB TRANSVAGINAL Imaging Routine 03/01/2021 9:30 AM EDT [facility] Work Phone: Varicella zoster vir us DNA [Presence] in Unspecified specimen by KEELEY with probe detection [facility] XR Thoracic spine Views [facility] Immunizations Immunization Date Immunization Notes Care Provider Mary villegas 04-11-2024 influenza, seasonal, injectable, preservative free SHANNAN VAZQUEZ DO Work Phone: [facility] 03-15-2023 influenza, injectabl e, quadrivalent, preservative free Deejay Glasgow PA-C Work Phone: [facility] 03-15-2023 influenza virus vaccine, unspecified formulation Deejay Glasgow PA-C Work Phone: [facility] 11-29-2022 tetanus toxoid, redu alda diphtheria toxoid, and acellular pertussis vaccine, adsorbed Shannan PHELPS Work Phone: [facility] 04-13-2022 influenza, injectabl e, quadrivalent, preservative free DO SHANNAN VAZQUEZ Work Phone: [facility] 04-13-2022 influenza, seasonal, injectable Shannan Vazquez Work Phone: [facility] 04-29-2021 Covid (Moderna) SHANNAN NASH TERS DO Work Phone: [facility] 04-12-2021 influenza, injectabl e, quadrivalent, preservative free SHANNAN VAZQUEZ DO Work Phone: [facility] 07-07-2020 Covid (Moderna) SHANNAN PE TERS DO Work Phone: [facility] 06-10-2020 Covid (Moderna) SHANNAN PE TERS DO Work Phone: [facility] 08-22-2018 influenza, injectabl e, quadrivalent, preservative free SHANNAN VAZQUEZ DO Work Phone: [facility] 04-17-2017 influenza, injectabl e, quadrivalent, preservative free Damon Koch [facility] 04-18-2016 tuberculin skin test ; purified protein derivative solution, intradermal; Translations: [Tubersol 5 UNIT/0.1ML Intradermal Solution] Damon Koch [facility] Work Phone: 01-28-2015 varicella virus vaccine REYES VAZQUEZ DO Work Phone: [facility] 06-01-2014 hepatitis B vaccine, adult dosage SHANNAN VAZQUEZ DO Work Phone: [facility] 02-02-2014 varicella virus vaccine CHRI EDY VAZQUEZ DO Work Phone: [facility] 2014 hepatitis B vaccine, pediatric or pediatric/adolescent dosage SHANNAN VAZQUEZ DO Work Phone: [facility] 2014 tetanus toxoid, redu alda diphtheria toxoid, and acellular pertussis vaccine, adsorbed SHANNAN VAZQUEZ DO Work Phone: [facility] 01-17-2005 measles, mumps and rubella virus vaccine SHANNAN VAZQUEZ DO Work Phone: [facility] 01-17-2005 TD(adult) unspecifie d formulation SHANNANMOLINA VAZQUEZ DO Work Phone: [facility] 09-28-1997 diphtheria, tetanus toxoids and acellular pertussis vaccine SHANNAN VAZQUEZ DO Work Phone: [facility] 09-28-1997 poliovirus vaccine, inactivated SHANNAN VAZQUEZ DO Work Phone: [facility] 08-31-1993 diphtheria, tetanus toxoids and acellular pertussis vaccine SHANNAN VAZQUEZ DO Work Phone: [facility] 08-31-1993 poliovirus vaccine, inactivated SHANNAN VAZQUEZ DO Work Phone: [facility] 05-25-1993 hepatitis B vaccine, pediatric or pediatric/adolescent dosage SHANNAN VAZQUEZ DO Work Phone: [facility] 05-25-1993 measles, mumps and rubella virus vaccine SHANNAN VAZQUEZ DO Work Phone: [facility] 1992 diphtheria, tetanus toxoids and acellular pertussis vaccine SHANNAN VAZQUEZ DO Work Phone: [facility] 1992 haemophilus influenz ae type b vaccine, PRP-T conjugate SHANNAN VAZQUEZ DO Work Phone: [facility] 1992 diphtheria, tetanus toxoids and acellular pertussis vaccine SHANNAN TAYLOR DO Work Phone: [facility] 1992 haemophilus influenz ae type b vaccine, PRP-T conjugate SHANNANMOLINA VAZQEUZ DO Work Phone: [facility] 1992 poliovirus vaccine, inactivated SHANNAN VAZQUEZ DO Work Phone: [facility] 1992 diphtheria, tetanus toxoids and acellular pertussis vaccine SHANNANMOLINA VAZQUEZ DO Work Phone: [facility] 1992 haemophilus influenz ae type b vaccine, PRP-T conjugate SHANNANMOLINA VAZQUEZ DO Work Phone: [facility] 1992 poliovirus vaccine, inactivated SHANNANMOLINA VAZQUEZ DO Work Phone: [facility] Payers Date Payer Category Payer Self-pay 2022 Private Health Insurance [employer] A [employer] [id number] 2022-Present [address] [place] [address] Commercial [id number] 2022 Unknown [id number] 1992 Unknown [id number] [id number]. 356 1992 Unknown [id number] 2.16.840.1.208832.3.579.2. 598 1959 Unknown [id number] 1959 Unknown [id number] Unknown [id number] 2.16.840.1.055613.3.579.2. 462 Unknown [id number] 2.16.840.1.485244.3.579.2. 462 Unknown [id number] 2.16.840.1.947037.3.579.2. 462 Unknown [id number] 2.16.840.1.044212.3.579.2. 462 Unknown [id number] 2.16.840.1.506634.3.579.2. 462 Unknown [id number] 2.16.840.1.661083.3.579.2. 462 Unknown [id number] 2.16.840.1.351465.3.579.2. 462 Unknown [id number] 2.16.840.1.843581.3.579.2. 462 Unknown [id number] 2.16.840.1.560375.3.579.2. 462 Unknown [id number] 2.16.840.1.742774.3.579.2. 462 Unknown [id number] 2.16.840.1.505518.3.579.2. 462 Unknown [id number] 2.16.840.1.470429.3.579.2. 462 Unknown [id number] 2.16.840.1.475845.3.579.2. 462 Unknown [id number] 2.16.840.1.185652.3.579.2. 462 Unknown [id number] 2.16.840.1.670136.3.579.2. 462 Unknown [id number] 2.16.840.1.887327.3.579.2. 462 Social History Date Type Detail Facility Start: 01-31-2021 End: 11-25-2024 Tobacco smoking status OKIS Never smoker [facility] Start: 12-16-2020 End: 01-31-2021 Tobacco use and exposure Never used [facility] Start: 01-31-2021 End: 05-30-2022 Alcohol intake Current drinker of alcohol (finding) [facility] Work Phone: Start: 1990 Sex Assigned At Not on file [facility] Work Phone: Exposure to SARS-CoV-2 (event) Not sure [facility] Start: 05-19-2021 History SDOH Alcohol Comment monthly [facility] Work Phone: Start: 1990 Sex Assigned At Female [facility] Start: 07-11-2022 End: 03-16-2023 Tobacco smoking status NHIS Unknown if ever smoked [facility] Start: 05-30-2022 History of Social function [facility] Start: 05-30-2022 Tobacco use panel [facility] Start: 10-06-2024 Sex Female (finding) [facility] NEGATED: Highlighted row - - [facility] Work Phone: NEGATED: Highlighted row [facility] Goals Date Patient Goal Desired Activity /State Functional Status Date Assessment Result Facility 02-26-2023 Functional status Chair [facility] Work Phone: NEGATED: Highlighted row Functional performance Functional status health issues are not documented Disease [facility] Work Phone: Mental Status Date Assessment Result Facility 02-26-2023 Cognitive function Patient Behav ior Anxious [facility] Work Phone: 02-25-2023 Cognitive function Level Of Cons ciousness Awake;Drowsy [facility] Work Phone: NEGATED: Highlighted row Cognitive function [Interpretation] Cognitive status health issues are not documented Disease [facility] Work Phone: Clinical Notes 12-16-2020 to 11-04-2024 Note Date & Type Note Facility 11-04-2024 Progress note [facility] 11-04-2024 Progress note Note Date/Time November 04, 2024 3:43pm [facility] [address], [address] [place] [address] OFFICE VISIT Date of Service: 11/04/24 MR#: [id number] Acct: [id number] Name: KATIE ROBB Rep #: [id number] : 1990 Provider: LIUDMILA Armstrong Age/Sex: 34/F Location: 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 Required: No Is patient in pain?: No Allergies No Known Allergies Allergy (Verified 11/04/24 15:18) Medications ?Medication ?Instructions ?Recorded ?Confirmed ?Type PNV no.63-iron,carbonyl 27mg-folic 1 cap PO QDAY 10/0211/04/24 History acid 800 mcg-dha 200 mg capsule ondansetron 4 mg disintegrating 4 mg PO Q6H PRN nausea and 11/04/24 11/04/24 Rx tablet vomiting #30 tabs Last Menstrual Period: 05/03/22 : No Have you fallen in the past year?: No PFSH PFSH Medical History Endometriosis DIC (disseminated intravascular coagulation) Retained products of conception hemorrhage Conceived by in vitro fertilization Segmental and somatic dysfunction of lumbar region Segmental dysfunction of thoracic region Segmental dysfunction of lumbar region Hypothyroid Acute postoperative anemia due to greater than expected blood loss Vaginal delivery Infertility COVID-19 Recurrent bacterial infection Low-lying placenta Raynauds syndrome Surgical History H/O dilation and curettage History of surgery Hx of wisdom tooth extraction Hx of tonsillectomy Hx of laparoscopy Family History Father Lung cancer, Onset Age: 42 Mother Lymphoma, Onset Age: 54 Thyroid disorder Social History adopted: No household members: spouse and children housing: house number of children: 1 current occupational status: employed 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 current occupational exposures/hazards: No pets and animals: Yes pets and animals: dog(s) history of recent travel: No sexually active: Yes Smoking Status: Never smoker alcohol intake: former details: not while substance use type: does not use well-balanced diet: daily or most days caffeine: No eating out: rarely or never during the past year weight has: increased > 10 lbs what type of physical activity do you participate in: walking, yoga and weight training frequency: 3-4 times per week duration: 30-45 minutes/day diego/worship: None seatbelt use: always do you feel safe at home: Yes 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 Date Name GA/Weeks Outcome Route Bth Weight Gen Labor Lgth Anesthesia Del Locatn Provider FOB 02/02/23 Angelito 39 live - full term 9lbs Female [facility] Brent Zee HPI 12wk ob Details: KATIE ROBB is a 34 year old who presents for routine OB visit. OB Visit TETO Calculator Estimated Delivery Date Method Current WG Current Estimate 05/13/25 Conception 12w 6d Other Estimates 05/20/25 Ultrasound #1 11w 6d Expected Delivery Route/Plan Labor Preferences- CB/BF classes: [] labor support person: [] labor intervention preferences: [] pain management options preferred: [] cut cord/dad catch: [] : [] PP control planned: [] discussed possible routes of delivery and associated risks: [] special requests: [] Specific Issue/Plans Covid status: [] Flu vaccine: [] Tdap vaccine: [] Rhogam: [] LARC form signed: [] Problem list reviewed and updated with the most current plan of care details and appropriate orders placed. Relevant counseling for the gestational age provided. Continue routine care and follow up unless otherwise noted in visit notes/problem list details Initial Weight: 193 lb Date -?-?-?-?-?-?-?-?-?-?-?-?- EGA Weight BP Urine Prot -?-?-?-?-?-?-?-?-?-?-?-?- Glucose FHR FuHt Pres Dilation -?-?-?-?-?-?--?-?-?-?-?-?- Effaced St Visit Note 10/07/24 -?-?-?-?-?-?-?-?-?-?-?-?- 8w 6d 193 lb 8 oz (+8 oz) 121/84 -?-?-?-?-?-?-?-?-?-?-?-?- 173 -?-?-?-?-?-?-?-?-?-?-?-?- KW- CRL cons [facility] hospital US. 7 days behind IVF implantation and US dating. accepts NIPT. had heavy bleeding over the weekend with clots. KW- CRL cons with hospital U S. 7 days behind IVF implantation and US dating. accepts NIPT. had heavy bleeding over the weekend with clots. RTO in 2 weeks 10/21/24 -?-?-?-?-?-?-?-?-?-?-?-?- 10w 6d 195 lb 2 oz (+2 lb 2 oz) 115/79 Negative -?-?-?-?-?-?-?-?-?-?--?-?- Negative 150 -?-?-?-?-?-?-?-?-?-?-?-?- SM- no vb crampi ng SM- no vb cramping 4mm subch orionic hematoma resolving 11/04/24 -?-?-?-?-?-?-?--?-?-?-?-?- 12w 6d 196 lb 4 oz (+3 lb 4 oz) 117/81 Negative -?-?-?-?-?-?-?-?-?-?-?-?- Negative 150 -?-?-?-?-?-?-?-?-?-?-?-?- KW- some bleedin g one day last week x 1 episode- but stopped. none since. Vit B6 and Unisom and Zofran for nausea. US with hospital. ACOG First Trimester First Trimester: Desire for , Alcohol, Tobacco Cessation, Illicit/Recreational Drug/Substance Use, Intimate Partner Violence, Barriers to care, Unstable Housing, Communication Barriers, Environmental/Work Hazards, Anticipated Course of Care, Toxoplasmosis Precations, Use of Any medications, Sexual activity, Exercise, Dental Care, Sauna/Hot tub use, Seat Belt use, Childbirth classes/Hospital facilities, Travel, Indications for Ultrasound and Screening for Aneuploidy; Discussed Second Trimester Second Trimester: Signs and Symptoms of Labor, Selecting a care provider, Reproductive Life Planning & Contreception, Care Planning, Depression/Anxiety and Intimate Partner Violence; Discussed Tobacco Cessation Third Trimester Third Trimester: Pain Management Plans, Labor support person(s), Immediate Larc, Movement Monitoring, Signs and Symptoms of Preeclampsia and Education ROS Const Reports system reviewed and no additional complaints, except as documented Eyes Reports system reviewed and no additional complaints, except as documented ENT Reports system reviewed and no additional complaints, except as documented Card Reports system reviewed and no additional complaints, except as documented Resp Reports system reviewed and no additional complaints, except as documented GI Reports system reviewed and no additional complaints, except as documented, Denies nausea and Denies vomiting Reports system reviewed and no additional complaints, except as documented Musc Reports system reviewed and no additional complaints, except as documented Skin/Breast Reports system reviewed and no additional complaints, except as documented Neuro Yes system reviewed and no additional complaints, except as documented Psych Reports system reviewed and no additional complaints, except as documented Endo Reports system reviewed and no additional complaints, except as documented Jorge Alberto/Lymph Reports system reviewed and no additional complaints, except as documented Aller/Immun Reports system reviewed and no additional complaints, except as documented Exam Const General: cooperative, healthy appearing and no acute distress Orientation: alert, awake and oriented x3 Neck Neck: normal visual inspection and full ROM Resp Effort & Inspection: normal respiratory effort, able to speak in complete sentences and symmetric chest movement GI Inspection: normal to inspection Palpation: soft and other Other: gravid Skin General: no rashes or lesions noted Neuro General: patient alert, patient awake and patient oriented x3 Cognition: normal cognition Speech: speech normal Gait: normal gait Motor: muscle tone normal throughout Extrem General: normal to inspection and full ROM Psych Appearance: grossly normal Mental Status: mental status grossly normal Mood: congruent mood Affect: normal affect Speech and Movement: speech and movement normal Attitude: cooperative Thought Process: normal Thought Content: normal Judgment: judgment good Results POC Urinalysis 2 Dip (Clinic) Office Urine Glucose Negative Last Edit by Margarita Wiggins on 11/04/24 15:27 Office Urine Protein Negative Last Edit by Margarita Wiggins on 11/04/24 15:27 Coding Level of Care Code OB Routine Diagnoses Supervision of high-risk O09.90 12 weeks gestation of Z3A.12 Weeks of gestation: 12 weeks Infertility History of hemorrhage, currently O09.299 Conceived by in vitro fertilization Z78.9 Assessment and Plan Assessment and Plan (1) Supervision of high-risk : Status: Acute Comment: , TETO 05/13/25 PC Angelito Yayo (2) : Status: Acute Qualifiers: Weeks of gestation: 12 weeks Qualified Code(s): Z3A.12 - 12 weeks gestation of Comment: NIPT low risk, carrier declines (3) Infertility: Status: Acute Comment: IVF transfer 08/26/24 (4) History of hemorrhage, currently : Status: Acute Comment: retained products of conception 3wk PP s/p suction D and C (5) Conceived by in vitro fertilization: Status: Acute Comment: transfer 08/26/24, plan echo at 22-24 weeks Orders: Orders POC Urinalysis 2 Dip (Clinic) Today Medications: New ondansetron 4 mg PO Q6H PRN 30 tabs 4RF nausea and vomiting O21.9 - Vomiting of , unspecified Plan Details Additional Comments: ACOG trimester education reviewed and updated. see problem list details for updated plan management information and see below for orders placed at this visit. GA appropriate handout given. Goals & Barriers: Goals Decrease spasm Decrease pain Improve workability Improve posture Clinical Quality Measures Falls Risk Screening/Assistive Devices Have you fallen in the past year?: No 11/04/24 3947 <Electronically signed by Niya callejas CNM> Date _ [facility] Armstrong [facility] Signature: Date (if applicable) CC: ~ [facility] [employer] [facility] Work Phone: 1(473) 363-649705-13-2025 Progress [facility] [address] [place] [address], [address] [place] [address] OFFICE VISIT Date of Service: 10/21/24 MR#: [id number] Acct: [id number] Name: KATIE ROBB Rep #: [id number] : 1990 Provider: Dr. Robert Gomez MD Age/Sex: 34/F Location: [facility] Status: Signed Intake Vital Signs 10/07/24 14:44 10/21/24 14:54 10/21/24 14:58 Height 5 ft 7 in 5 ft 7 in 5 ft 7 in Weight: 195 lb 2 oz BMI 30.5 BP 115/79 Intake Visit Reasons: 10 WK OB Sole Scraper Required: No Is patient in pain?: No Feel stressed/tense/nervous/anxious/difficulty sleeping: not at all Allergies No Known Allergies Allergy (Verified 10/21/24 14:54) Medications ?Medication ?Instructions ?Recorded ?Confirmed ?Type PNV no.63-iron,carbonyl 27mg-folic 1 cap PO QDAY 10/0210/21/24 History acid 800 mcg-dha 200 mg capsule Last Menstrual Period: 05/03/22 Zika: Zika virus screening: Negative : No PFSH PFSH Medical History (Updated 10/21/24 @ 15:[address] Nat Gomez MD) Endometriosis DIC (disseminated intravascular coagulation) Retained products of conception hemorrhage Conceived by in vitro fertilization Segmental and somatic dysfunction of lumbar region Segmental dysfunction of thoracic region Segmental dysfunction of lumbar region Hypothyroid Acute postoperative anemia due to greater than expected blood loss Vaginal delivery Infertility COVID-19 Recurrent bacterial infection Low-lying placenta Raynauds syndrome Surgical History H/O dilation and curettage History of surgery Hx of wisdom tooth extraction Hx of tonsillectomy Hx of laparoscopy Family History Father Lung cancer, Onset Age: 42 Mother Lymphoma, Onset Age: 54 Thyroid disorder Social History adopted: No household members: spouse and children housing: house number of children: 1 current occupational status: employed 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 current occupational exposures/hazards: No pets and animals: Yes pets and animals: dog(s) history of recent travel: No sexually active: Yes Smoking Status: Never smoker alcohol intake: former details: not while substance use type: does not use well-balanced diet: daily or most days caffeine: No eating out: rarely or never during the past year weight has: increased > 10 lbs what type of physical activity do you participate in: walking, yoga and weight training frequency: 3-4 times per week duration: 30-45 minutes/day diego/worship: None seatbelt use: always do you feel safe at home: Yes 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 Date Name GA/Weeks Outcome Route Bth Weight Gen Labor Lgth Anesthesia Del Locatn Provider FOB 02/02/23 Angelito 39 live - full term 9lbs Female [facility] Brent Zee HPI 10 WK OB Details: KATIE ROBB is a 34 year old who presents for routine OB visit. OB Visit TETO Calculator Estimated Delivery Date Method Current WG Current Estimate 05/13/25 Conception 10w 6d Other Estimates 05/20/25 Ultrasound #1 9w 6d Expected Delivery Route/Plan Labor Preferences- CB/BF classes: [] labor support person: [] labor intervention preferences: [] pain management options preferred: [] cut cord/dad catch: [] : [] PP control planned: [] discussed possible routes of delivery and associated risks: [] special requests: [] Specific Issue/Plans Covid status: [] Flu vaccine: [] Tdap vaccine: [] Rhogam: [] LARC form signed: [] Problem list reviewed and updated with the most current plan of care details and appropriate ordersplaced. Relevant counseling for the gestational age provided. Continue routine care and follow up unless otherwise noted in visit notes/problem list details Initial Weight: 193 lb Date -?-?-?-?-?-?-?-?-?-?-?-?- EGA Weight BP Urine Prot -?-?-?-?-?-?-?-?-?-?-?-?- Glucose FHR FuHt Pres Dilation -?-?-?-?-?-?--?-?-?-?-?-?- Effaced St Visit Note 10/07/24 -?-?-?-?-?-?-?-?-?-?-?-?- 8w 6d 193 lb 8 oz (+8 oz) 121/84 -?-?-?-?-?-?-?-?-?-?-?-?- 173 -?-?-?-?-?-?-?-?-?-?-?-?- KW- CRL cons wit h hospital US. 7 days behind IVF implantation and US dating. accepts NIPT. had heavy bleeding over the weekend with clots. KW- CRL cons with hospital U S. 7 days behind IVF implantation and US dating. accepts NIPT. had heavy bleeding over the weekend with clots. RTO in 2 weeks 10/21/24 -?-?-?-?-?-?-?-?-?-?-?-?- 10w 6d 195 lb 2 oz (+2 lb 2 oz) 115/79 Negative -?-?-?-?-?-?-?-?-?-?--?-?- Negative 150 -?-?-?-?-?-?-?-?-?-?-?-?- SM- no vb crampi ng SM- no vb cramping 4mm subch orionic hematoma resolving ACOG First Trimester First Trimester: Desire for , Alcohol, Tobacco Cessation, Illicit/Recreational Drug/Substance Use, Intimate Partner Violence, Barriers to care, Unstable Housing, Communication Barriers, Environmental/Work Hazards, Anticipated Course of Care, Toxoplasmosis Precations, Use of Any med ications, Sexual activity, Exercise, Dental Care, Sauna/Hot tub use, Seat Belt use, Childbirth classes/Hospital facilities, Travel, Indications for Ultrasound and Screening for Aneuploidy; Discussed Second Trimester Second Trimester: Signs and Symptoms of Labor, Selecting a care provider, Reproductive Life Planning & Contreception, Care Planning, Depression/Anxiety and Intimate Partner Violence; Discussed Tobacco Cessation Third Trimester Third Trimester: Pain Management Plans, Labor support person(s), Immediate Larc, Movement Monitoring, Signs and Symptoms of Preeclampsia and Education Results POC Urinalysis 2 Dip (Clinic) Office Urine Glucose Negative Last Edit by Julia Jackson on 10/21/24 15:02 Office Urine Protein Negative Last Edit by Julia Jackson on 10/21/24 15:02 Coding Level of Care Code OB Routine Diagnoses Supervision of high-risk O09.90 10 weeks gestation of Z3A.10 Weeks of gestation: 10 weeks Infertility History of hemorrhage, currently O09.299 Conceived by in vitro fertilization Z78.9 Assessment and Plan Assessment and Plan (1) Supervision of high-risk : Status: Acute Comment: , TETO 05/13/25 PC Angelito Yayo (2) : Status: Acute Qualifiers: Weeks of gestation: 10 weeks Qualified Code(s): Z3A.10 - 10 weeks gestation of Comment: elects NIPT w gender, carrier declines (3) Infertility: Status: Acute Comment: IVF transfer 08/26/24 (4) History of hemorrhage, currently : Status: Acute Comment: retained products of conception 3wk PP s/p suction D and C (5) Conceived by in vitro fertilization: Status: Acute Comment: transfer 08/26/24, plan echo at 22-24 weeks Orders: Orders OB Anatomy Scan 12/24/24 O09.90 - Supervision of high risk , unspecified, unspecified trimester POC Urinalysis 2 Dip (Clinic) Today Plan Details Goals & Barriers: Goals Decrease spasm Decrease pain Improve workability Improve posture 10/21/24 1522 zenaida HELTON> Date _ Nat Gomez MD Cosigner Signature: Date (if applicable) CC: ~ [facility]05-13-2025 Progress note Author Nat Gomez [facility] Note Date/Time October 21, 2024 3:22p [facility] [address] [place] [address], [address] [place] [address] OFFICE VISIT Date of Service: 10/21/24 MR#: [id number] Acct: [id number] Name: VANKATIE ANGELINA Rep #: [id number] : 1990 Provider: Dr. Robert Gomez MD Age/Sex: 34/F Location: [facility] Status: Signed Intake Vital Signs 10/07/24 14:44 10/21/24 14:54 10/21/24 14:58 Height 5 ft 7 in 5 ft 7 in 5 ft 7 in Weight: 195 lb 2 oz BMI 30.5 BP 115/79 Intake Visit Reasons: 10 WK OB Sole Scraper Required: No Is patient in pain?: No Feel stressed/tense/nervous/anxious/difficulty sleeping: not at all Allergies No Known Allergies Allergy (Verified 10/21/24 14:54) Medications ?Medication ?Instructions ?Recorded ?Confirmed ?Type PNV no.63-iron,carbonyl 27mg-folic 1 cap PO QDAY 10/0210/21/24 History acid 800 mcg-dha 200 mg capsule Last Menstrual Period: 05/03/22 Zika: Zika virus screening: Negative : No PFSH PFSH Medical History (Updated 10/21/24 @ 15:[address] Nat Gomez MD) Endometriosis DIC (disseminated intravascular coagulation) Retained products of conception hemorrhage Conceived by in vitro fertilization Segmental and somatic dysfunction of lumbar region Segmental dysfunction of thoracic region Segmental dysfunction of lumbar region Hypothyroid Acute postoperative anemia due to greater than expected blood loss Vaginal delivery Infertility COVID-19 Recurrent bacterial infection Low-lying placenta Raynauds syndrome Surgical History H/O dilation and curettage History of surgery Hx of wisdom tooth extraction Hx of tonsillectomy Hx of laparoscopy Family History Father Lung cancer, Onset Age: 42 Mother Lymphoma, Onset Age: 54 Thyroid disorder Social History adopted: No household members: spouse and children housing: house number of children: 1 current occupational status: employed 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 current occupational exposures/hazards: No pets and animals: Yes pets and animals: dog(s) history of recent travel: No sexually active: Yes Smoking Status: Never smoker alcohol intake: former details: not while substance use type: does not use well-balanced diet: daily or most days caffeine: No eating out: rarely or never during the past year weight has: increased > 10 lbs what type of physical activity do you participate in: walking, yoga and weight training frequency: 3-4 times per week duration: 30-45 minutes/day diego/worship: None seatbelt use: always do you feel safe at home: Yes 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 Date Name GA/Weeks Outcome Route Bth Weight Infant Gen Labor Lgth Anesthesia Del Locatn Provider FOB 02/02/23 Angelito 39 live - full term 9lbs Female [facility] Brent Zee HPI 10 WK OB Details: KATIE ROBB is a 34 year old who presents for routine OB visit. OB Visit TETO Calculator Estimated Delivery Date Method Current WG Current Estimate 05/13/25 Conception 10w 6d Other Estimates 05/20/25 Ultrasound #1 9w 6d Expected Delivery Route/Plan Labor Preferences- CB/BF classes: [] labor support person: [] labor intervention preferences: [] pain management options preferred: [] cut cord/dad catch: [] : [] PP control planned: [] discussed possible routes of delivery and associated risks: [] special requests: [] Specific Issue/Plans Covid status: [] Flu vaccine: [] Tdap vaccine: [] Rhogam: [] LARC form signed: [] Problem list reviewed and updated with the most current plan of care details and appropriate orders placed. Relevant counseling for the gestational age provided. Continue routine care and follow up unless otherwise noted in visit notes/problem list details Initial Weight: 193 lb Date -?-?-?-?-?-?-?-?-?-?-?-?- EGA Weight BP Urine Prot -?-?-?-?-?-?-?-?-?-?-?-?- Glucose FHR FuHt Pres Dilation -?-?-?-?-?-?--?-?-?-?-?-?- Effaced St Visit Note 10/07/24 -?-?-?-?-?-?-?-?-?-?-?-?- 8w 6d 193 lb 8 oz (+8 oz) 121/84 -?-?-?-?-?-?-?-?-?-?-?-?- 173 -?-?-?-?-?-?-?-?-?-?-?-?- KW- CRL cons wit h hospital US. 7 days behind IVF implantation and US dating. accepts NIPT. had heavy bleeding over the weekend with clots. KW- CRL cons with hospital U S. 7 days behind IVF implantation and US dating. accepts NIPT. had heavy bleeding over the weekend with clots. RTO in 2 weeks 10/21/24 -?-?-?-?-?-?-?-?-?-?-?-?- 10w 6d 195 lb 2 oz (+2 lb 2 oz) 115/79 Negative -?-?-?-?-?-?-?-?-?-?--?-?- Negative 150 -?-?-?-?-?-?-?-?-?-?-?-?- SM- no vb crampi ng SM- no vb cramping 4mm subch orionic hematoma resolving ACOG First Trimester First Trimester: Desire for , Alcohol, Tobacco Cessation, Illicit/Recreational Drug/Substance Use, Intimate Partner Violence, Barriers to care, Unstable Housing, Communication Barriers, Environmental/Work Hazards, Anticipated Course of Care, Toxoplasmosis Precations, Use of Any medications, Sexual activity, Exercise, Dental Care, Sauna/Hot tub use, Seat Belt use, Childbirth classes/Hospital facilities, Travel, Indications for Ultrasound and Screening for Aneuploidy; Discussed Second Trimester Second Trimester: Signs and Symptoms of Labor, Selecting a care provider, Reproductive Life Planning & Contreception, Care Planning, Depression/Anxiety and Intimate Partner Violence; Discussed Tobacco Cessation Third Trimester Third Trimester: Pain Management Plans, Labor support person(s), Immediate Larc, Movement Monitoring, Signs and Symptoms of Preeclampsia and [place] Education Results POC Urinalysis 2 Dip (Clinic) Office Urine Glucose Negative Last Edit by Julia Jackson on 10/21/24 15:02 Office Urine Protein Negative Last Edit by Julia Jackson on 10/21/24 15:02 Coding Level of Care Code OB Routine Diagnoses Supervision of high-risk O09.90 10 weeks gestation of Z3A.10 Weeks of gestation: 10 weeks Infertility History of hemorrhage, currently O09.299 Conceived by in vitro fertilization Z78.9 Assessment and Plan Assessment and Plan (1) Supervision of high-risk : Status: Acute Comment: , TETO 05/13/25 PC Angelito Yayo (2) : Status: Acute Qualifiers: Weeks of gestation: 10 weeks Qualified Code(s): Z3A.10 - 10 weeks gestation of Comment: elects NIPT w gender, carrier declines (3) Infertility: Status: Acute Comment: IVF transfer 08/26/24 (4) History of hemorrhage, currently : Status: Acute Comment: retained products of conception 3wk PP s/p suction D and C (5) Conceived by in vitro fertilization: Status: Acute Comment: transfer 08/26/24, plan echo at 22-24 weeks Orders: Orders OB Anatomy Scan 12/24/24 O09.90 - Supervision of high risk , unspecified, unspecified trimester POC Urinalysis 2 Dip (Clinic) Today Plan Details Goals & Barriers: Goals Decrease spasm Decrease pain Improve workability Improve posture 10/21/24 1522 <Electronically signed by Nat estevez MD> Date _ Nat Gomez MD Cosigner Signature: Date (if applicable) CC: ~ [place] [facility] Work Phone: 1(636) 193-571404-29-2025 Evaluation note* Diagnosis Onset Date Resolution Status Admit Date Conceived by in vitro fertilization acute October 07, 2024 2:42pm History of hemorrhage, currently acute A pril 2024 2:42pm Infertility acute October 07, 025 2:42pm acute October 07 2:42pm Supervision of high-risk acute October 07, 2024 2:42pm DIC (disseminated intravascu lar coagulation) resolved October 07, 2024 2:42pm Endometriosis resolved October 07, 2024 2:42pm Threatened miscarriage inactive Ap ril 2024 2:42pm Vaginal bleeding during inactive October 07, 2024 2:42pm Conceived by in vitro fertilization acute October 21, 2024 2 :48pm History of hemorrhage, currently acute M 2024 2:48pm Infertility acute October 21 2:48pm acute October 21, 2024 2:48pm Supervision of high-risk acute October 21, 2024 2 :48pm Conceived by in vitro fertilization acute November 04, 2024 3 :15pm History of hemorrhage, currently acute [facility] 2024 3:15pm Infertility acute November 04 3:15pm acute November 04, 2024 3:15pm Supervision of high-risk acute November 04, 2024 3 :15pm [facility] Work Phone: 1(947) 327-601004-29-2025 Evaluation note* Diagnosis Onset Date Resolution Status Admit Date Conceived by in vitro fertilization acute October 07, 2024 2:42pm History of hemorrhage, currently acute A pril 2024 2:42pm Infertility acute October 07, 2 025 2:42pm acute October 07 2:42pm Supervision of high-risk acute October 07, 2024 2:42pm DIC (disseminated intravascu lar coagulation) resolved October 07, 2024 2:42pm Endometriosis resolved October 07, 2024 2:42pm Threatened miscarriage inactive Ap ril 2024 2:42pm Vaginal bleeding during inactive October 07, 2024 2:42pm Conceived by in vitro fertilization acute October 21, 2024 2 :48pm History of hemorrhage, currently acute [facility] 2024 2:48pm Infertility acute October 21 2:48pm acute October 21, 2024 2:48pm Supervision of high-risk acute October 21, 2024 2 :48pm Conceived by in vitro fertilization acute November 04, 2024 3 :15pm History of hemorrhage, currently acute [facility] 2024 3:15pm Infertility acute November 04 3:15pm acute November 04, 2024 3:15pm Supervision of high-risk acute November 04, 2024 3 :15pm Conceived by in vitro fertilization acute December 05, 2024 11:39am History of hemorrhage, currently acute [facility] 2024 11:39am Infertility acute December 05 11:39am acute December 05 11:39am Supervision of high-risk acute December 05, 2024 11:39am [facility] Work Phone: 1(107) 902-158404-29-2025 Evaluation note* Diagnosis Onset Date Resolution Status Admit Date Conceived by in vitro fertilization acute October 07, 2024 2:42pm History of hemorrhage, currently acute A pril 2024 2:42pm Infertility acute October 07, 2:42pm acute October 07 2:42pm Supervision of high-risk acute October 07, 2024 2:42pm DIC (disseminated intravascu lar coagulation) resolved October 07, 2024 2:42pm Endometriosis resolved October 07, 2024 2:42pm Threatened miscarriage inactive Ap ril 2024 2:42pm Vaginal bleeding during inactive October 07, 2024 2:42pm Conceived by in vitro fertilization acute October 21, 2024 2 :48pm History of hemorrhage, currently acute M 2024 2:48pm Infertility acute October 21 2:48pm acute October 21, 2024 2:48pm Supervision of high-risk acute October 21, 2024 2 :48pm Conceived by in vitro fertilization acute November 04, 2024 3 :15pm History of hemorrhage, currently acute M ay 2024 3:15pm Infertility acute November 04 3:15pm acute November 04, 2024 3:15pm Supervision of high-risk acute November 04, 2024 3 :15pm Conceived by in vitro fertilization acute December 05, 2024 11:39am History of hemorrhage, currently acute [facility] 2024 11:39am Infertility acute December 05 11:39am acute December 05 11:39am Supervision of high-risk acute December 05, 2024 11:39am Segmental dysfunction of lum bar region acute December 11, 2024 1 1:58am Segmental dysfunction of thoracic region acute December 11, 2024 1 1:58am Acute bronchitis acute December 2:51pm Segmental and somatic dysfunction of lumbar region acute Dec 2:59pm Segmental dysfunction of lum bar region acute December 16, 2024 2 :59pm Segmental dysfunction of thoracic region acute December 16, 2024 2 :59pm [facility] Work Phone: 1(107) 131-761404-28-2025 Discharge summary [facility] Medical Records Department [address] [place] [address] Emergency Department Summary 10/05/24 MR#: [id number] Acct: [id number] Name: KATIE ROBB Rep #:[id number] : 1990 34 From: Nikko Guerrero MD PCP: Dr. Tatyana Matta MD Status:REG ER Location: ED HPI HPI - Female History of Present Illness Chief Complaint: Vag Bld, Preg Narrative Narrative: 34-year-old female, G2, P1 at approximately 8-1/2 weeks gestation presents with vaginal bleeding that began at 7 PM, approximately 3-1/2 hours ago. She relateshistory that after her first , she had hemorrhage. Hence, now she is considered high risk as she also has endometriosis.This is her second in vitro fertilization. She states that she had a 6-week ultrasound which showedshe had a subchorionic hematoma. She had light spotting prior to that. However, today she is havingpelvic cramping and states that although shehas not saturated an entire pad, this would be similar to her previous menses and perhaps a heavy flow day. No lightheadedness, denies other symptoms. She c alled the nurse practitioner at [place] who told her to come to the emergency department for evaluation. [facility] Medical History Endometriosis DIC (disseminated intravascular coagulation) Retained products of conception hemorrhage Conceived by in vitro fertilization Segmental and somatic dysfunction of lumbar region Segmental dysfunction of thoracic region Segmental dysfunction of lumbar region Hypothyroid Acute postoperative anemia due to greater than expected blood loss Vaginal delivery Infertility COVID-19 Recurrent bacterial infection Low-lying placenta Raynauds syndrome Home Medications ?Medication ?Instructions ?Recorded ?Last Taken ?Type PNV no.63-iron,carbonyl 27mg-folic 1 cap PO QDAY 10/02 Unknown History acid 800 mcg-dha 200 mg capsule conjugated estrogens 25 mg 25 mg IM ONCE 10/02/24 Unkn own History solution for injection progesterone 50 mg/mL 10 mg IM QDAY 10/02/24 Unkno wn History intramuscular oil Allergy/AdvReac Type Severity Reaction Status Date / Time No Known Allergies Allergy Verified 10/05/24 21:56 Family History Father Lung cancer, Onset Age: 42 Mother Lymphoma, Onset Age: 54 Thyroid disorder Surgical History H/O dilation and curettage History of surgery Hx of wisdom tooth extraction Hx of tonsillectomy Hx of laparoscopy Social History adopted: No household members: spouse and children housing: house number of children: 1 current occupational status: employed 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 current occupational exposures/hazards: No pets and animals: Yes pets and animals: dog(s) history of recent travel: No sexually active: Yes Smoking Status: Never smoker alcohol intake: former details: not while substance use type: does not use well-balanced diet: daily or most days caffeine: No eating out: rarely or never during the past year weight has: increased > 10 lbs what type of physical activity do you participate in: walking, yoga and weight training frequency: 3-4 times per week duration: 30-45 minutes/day diego/worship: None seatbelt use: always do you feel safe at home: Yes additional social history: - Yayo, radiation therapist/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 Has not fully saturated a pad but has changed it. No lightheadedness, no exacerbating or alleviating factors. EXAM Physical Exam Narrative Exam Narrative: Afebrile. Vital signs noted. Nontoxic-appearing. Cardiovascular examination reveals a regular rate and rhythm. Lungs clear to auscultation bilaterally. Abdomen is soft and nontender without guarding or rebound. Neurological examination nonfocal and nonlateralizing. No skin pallor. Const Vital Signs: 10/05/24 21:56 10/06/24 00:00 Temperature 97 F L Temperature Source Temporal Pulse Rate 85 89 Respiratory Rate 16 16 Blood Pressure 110/86 H 110/72 Blood Pressure Mean 94 84 Pulse Ox 100 99 Oxygen Delivery Method Room Air Room Air MDM MDM MDM Narrative Medical decision making narrative: Differential diagnosis includes but not limited to threatened miscarriage versussubchorionic hemorrhage. Patient states she is O+. She states that there was heart rate and intrauterine on her ultrasound at 6 weeks. Hence, I have lower suspicion for ectopic . I reviewed her prior EMR and she did have DIC with endometriosis and hemorrhage. I will obtain an ultrasound but have deferred pelvic exam as she was told that she was told to havepelvic rest at 6 weeks because of a subchorionic hemorrhage/hematoma. I reviewed her prior laboratory work and she is O+ and her blood type. I do not feel this needs to be repeated. Hence, I also do not feelthat she requires RhoGAM. I reviewed her laboratory work and she has a white count of 13.7 which I think is nonspecific, hemoglobin 15, platelet count normal at 191. CMP remarkable fora CO2 of 20.5 which I think is nonspecific, glucose 109, hCG quantitative is 28,177. I reviewed the radiology report of the ultrasound which shows an intrauterine gestation with an average heart rate of 171 bpm. No noted subchorionic hemorrhage. Estimated age by ultrasound at 7weeks and 2 days but by last menstrual period is 8 weeks and 4 days. I discussed the results with the patient, and once again she declines pelvic examination. I feel she can be discharged to follow-up with [facility]. They statethat they have an appointment on Sunday, tomorrow as it is now past midnight. I will discuss patient with Dr. Nuñez on-call for [facility]. How ever, patientstated she did not want to wait any longer. I do feel that she can be discharged to follow-up and call the office later today. She has an appointmentfor the following day. She will return with increased pain or bleeding, new or worsening symptoms. Disposition is discharged home in stable condition. History & Record Review Discussion w/independent historian: Patient Additional record(s) reviewed:: Prior labs Lab Data Attestation: I reviewed the patient's lab results. Labs: Laboratory Results - last 24 hr 10/05/24 22:32 WBC 13.7 H RBC 4.61 Hgb 15.0 Hct 40.3 MCV 87.4 MCH 32.5 H MCHC 37.2 H RDW Std Deviation 38.3 RDW Coeff of Evens 12.0 Plt Count 191 MPV 12.1 H Immature Gran % (Auto) 0.500 Neut % (Auto) 58.0 Lymph % (Auto) 23.5 [place] % (Auto) 7.4 Eos % (Auto) 10.0 H Baso % (Auto) 0.6 Absolute Neuts (auto) 8.0 H Absolute Lymphs (auto) 3.23 Nucleated RBC % 0 Reactive Lymphocytes 2+ Sodium 137 Potassium 3.9 Chloride 104 Carbon Dioxide 20.5 L Anion Gap 12 BUN 16 Creatinine 0.96 Estim Creat Clear Calc 95.78 Est GFR (MDRD) Non-Af 81 BUN/Creatinine Ratio 16.5 Glucose 109 H Calcium 9.2 Total Bilirubin 0.44 AST 19 ALT 11 Alkaline Phosphatase 67 Total Protein 6.8 Albumin 4.3 Globulin 2.5 Albumin/Globulin Ratio 1.7 HCG, Quant 63951 H Radiography Diagnostic Testing: Clinical Impression(s) from Imaging Studies Obstetrics Ultrasound 10/05/24 22:23 IMPRESSION: UNREMARKABLE FIRST TRIMESTER ULTRASOUND. Reading Location: [id number] Discharge Plan Triage Chief Complaint: Vag Bld, Preg ED Provider: Nikko Guerrero Dx/Rx/DC Orders Clinical Impression: Threatened miscarriage, Vaginal bleeding during Instructions: Bleeding During Early , Miscarriage Threatened Prescriptions: No Action PNV no.63-iron,zorqriwb-GD-cet 27 mg iron- 800 mcg-200 mg capsule 1 cap PO QDAY progesterone 50 mg/mL oil 10 mg IM QDAY conjugated estrogens 25 mg recon soln 25 mg IM ONCE Rx Instructions: as a single dose Primary Care Provider: Tatyana Matta Referrals: Nat Gomez MD [Med Staff - Active Staff] - Keep [facility] appointment Care Physician,No Primary [Non-Staff] - Print Language: [place] Disposition Disposition: Home, Self Care What to do if you have Problems For any increased pain, shortness of breath, bleeding, nausea or vomiting, chestpain, or any unexpected problems, contact your Primary Care Provider. Call [facility] ([phone]) or report tothe closest Emergency Room. Call 911 if necessary. 10/06/24 0107 Cosigner Signature (if applicable): CC: Dr. Tatyana Matta MD ~ Signed [facility]04-27-2025 Radiology Diagnostic study note [facility] Imaging Services [address] [place] [address] Transvaginal w/Preg US MR#: [id number] Acct: [id number] Name: KATIE ROBB Rep #: [id number] : 1990 F 34 From: Tonny Alvarado MD PCP: Dr. Tatyana Matta MD Status: REG ER Study:Transvaginal w/Preg US Date of Exam: 10/05/24 Exam# [id number] Ordering Dr: Nikko Guerrero MD PROCEDURE: TRANSVAGINAL W/PREG US 10/05/2024 REASON FOR EXAM: VAGINAL BLEEDING TECHNIQUE: Transvaginal FINDINGS: Comments: Number of Gestational Sacs: 1 Gestational Sac Shape: Normal Number of Fetuses: 1 Heart Rate: 171 (average) Survey of Visible Anatomic Structures: Grossly unremarkable for gestational age. Nasal Bones: Yolk Sac: Present and unremarkable. Placenta: Presently not well-visualized Amniotic Fluid Volume: Subjectively normal for gestational age. Uterine Abnormalities: Maternal uterus is unremarkable. Ovaries / Adnexa: Both maternal ovaries are visualized and unremarkable. DIMENSIONS: Parameter Measurement / EGA [place] Length: 16 mm/7 weeks 6 days Gestational Sac: 18 mm/6 weeks 5 days Yolk Sac: 4 mm/ ESTIMATED GESTATIONAL AGE: By Ultrasound: 7 weeks 2 days By LMP: 8 weeks 4 days ESTIMATED DATE OF DELIVERY: By Ultrasound: 05/22/2025 By LMP: 05/13/2025 US/Transvaginal w/Preg US IMPRESSION: UNREMARKABLE FIRST TRIMESTER ULTRASOUND. Reading Location: [id number] CC: Dr. Nikko Guerrero MD; Dr. Tatyana Matta MD ~ Reinforcing Rod Layer: Signed [facility]04-27-2025 Discharge summary Author Nikko Guerrero [facility] Note Date/Time October 06, 2024 1:0 7am [facility] Medical Records Department [address] [place] [address] Emergency Department Summary 10/05/24 MR#: [id number] Acct: [id number] Name: KATIE ROBB Rep #:[id number] : 1990 34 From: Nikko Guerrero MD PCP: Dr. Tatyana Matta MD Status:REG ER Location: ED HPI HPI - Female History of Present Illness Chief Complaint: Vag Bld, Preg Narrative Narrative: 34-year-old female, G2, P1 at approximately 8-1/2 weeks gestation presents with vaginal bleeding that began at 7 PM, approximately 3-1/2 hours ago. She relateshistory that after her first , she had hemorrhage. Hence, now she is considered high risk as she also has endometriosis. This is her second in vitro fertilization. She states that she had a 6-week ultrasound which showed she had a subchorionic hematoma. She had light spotting prior to that. However, today she is having pelvic cramping and states that although shehas not saturated an entire pad, this would be similar to her previous menses and perhaps a heavy flow day. No lightheadedness, denies other symptoms. She called the nurse practitioner at [place] who told her to come to the emergency department for evaluation. [facility] Medical History Endometriosis DIC (disseminated intravascular coagulation) Retained products of conception hemorrhage Conceived by in vitro fertilization Segmental and somatic dysfunction of lumbar region Segmental dysfunction of thoracic region Segmental dysfunction of lumbar region Hypothyroid Acute postoperative anemia due to greater than expected blood loss Vaginal delivery Infertility COVID-19 Recurrent bacterial infection Low-lying placenta Raynauds syndrome Home Medications ?Medication ?Instructions ?Recorded ?Last Taken ?Type PNV no.63-iron,carbonyl 27mg-folic 1 cap PO QDAY 10/02 Unknown History acid 800 mcg-dha 200 mg capsule conjugated estrogens 25 mg 25 mg IM ONCE 10/02/24 Unkn own History solution for injection progesterone 50 mg/mL 10 mg IM QDAY 10/02/24 Unkno wn History intramuscular oil Allergy/AdvReac Type Severity Reaction Status Date / Time No Known Allergies Allergy Verified 10/05/24 21:56 Family History Father Lung cancer, Onset Age: 42 Mother Lymphoma, Onset Age: 54 Thyroid disorder Surgical History H/O dilation and curettage History of surgery Hx of wisdom tooth extraction Hx of tonsillectomy Hx of laparoscopy Social History adopted: No household members: spouse and children housing: house number of children: 1 current occupational status: employed 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 current occupational exposures/hazards: No pets and animals: Yes pets and animals: dog(s) history of recent travel: No sexually active: Yes Smoking Status: Never smoker alcohol intake: former details: not while substance use type: does not use well-balanced diet: daily or most days caffeine: No eating out: rarely or never during the past year weight has: increased > 10 lbs what type of physical activity do you participate in: walking, yoga and weight training frequency: 3-4 times per week duration: 30-45 minutes/day diego/worship: None seatbelt use: always do you feel safe at home: Yes additional social history: - 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 Has not fully saturated a pad but has changed it. No lightheadedness, no exacerbating or alleviating factors. EXAM Physical Exam Narrative Exam Narrative: Afebrile. Vital signs noted. Nontoxic-appearing. Cardiovascular examination reveals a regular rate and rhythm. Lungs clear to auscultation bilaterally. Abdomen is soft and nontender without guarding or rebound. Neurological examination nonfocal and nonlateralizing. No skin pallor. Const Vital Signs: 10/05/24 21:56 10/06/24 00:00 Temperature 97 F L Temperature Source Temporal Pulse Rate 85 89 Respiratory Rate 16 16 Blood Pressure 110/86 H 110/72 Blood Pressure Mean 94 84 Pulse Ox 100 99 Oxygen Delivery Method Room Air Room Air MDM MDM MDM Narrative Medical decision making narrative: Differential diagnosis includes but not limited to threatened miscarriage versussubchorionic hemorrhage. Patient states she is O+. She states that there was heart rate and intrauterine on her ultrasound at 6 weeks. Hence, I have lower suspicion for ectopic . I reviewed her prior EMR and she did have DIC with endometriosis and hemorrhage. I will obtain an ultrasound but have deferred pelvic exam as she was told that she was told to have pelvic rest at 6 weeks because of a subchorionic hemorrhage/hematoma. I reviewed her prior laboratory work and she is O+ and her blood type. I do not feel this needs to be repeated. Hence, I also do not feelthat she requires RhoGAM. I reviewed her laboratory work and she has a white count of 13.7 which I think is nonspecific, hemoglobin 15, platelet count normal at 191. CMP remarkable fora CO2 of 20.5 which I think is nonspecific, glucose 109, hCG quantitative is 28,177. I reviewed the radiology report of the ultrasound which shows an intrauterine gestation with an average heart rate of 171 bpm. No noted subchorionic hemorrhage. Estimated age by ultrasound at 7 weeks and 2 days but by last menstrual period is 8 weeks and 4 days. I discussed the results with the patient, and once again she declines pelvic examination. I feel she can be discharged to follow-up with [facility]. They statethat they have an appointment on Sunday, tomorrow as it is now past midnight. I will discuss patient with Dr. Nuñez on-call for [facility]. However, patientstated she did not want to wait any longer. I do feel that she can be discharged to follow- up and call the office later today. She has an appointmentfor the following day. She will return with increased pain or bleeding, new or worsening symptoms. Disposition is discharged home in stable condition. History & Record Review Discussion w/independent historian: Patient Additional record(s) reviewed:: Prior labs Lab Data Attestation: I reviewed the patient's lab results. Labs: Laboratory Results - last 24 hr 10/05/24 22:32 WBC 13.7 H RBC 4.61 Hgb 15.0 Hct 40.3 MCV 87.4 MCH 32.5 H MCHC 37.2 H RDW Std Deviation 38.3 RDW Coeff of Evens 12.0 Plt Count 191 MPV 12.1 H Immature Gran % (Auto) 0.500 Neut % (Auto) 58.0 Lymph % (Auto) 23.5 [place] % (Auto) 7.4 Eos % (Auto) 10.0 H Baso % (Auto) 0.6 Absolute Neuts (auto) 8.0 H Absolute Lymphs (auto) 3.23 Nucleated RBC % 0 Reactive Lymphocytes 2+ Sodium 137 Potassium 3.9 Chloride 104 Carbon Dioxide 20.5 L Anion Gap 12 BUN 16 Creatinine 0.96 Estim Creat Clear Calc 95.78 Est GFR (MDRD) Non-Af 81 BUN/Creatinine Ratio 16.5 Glucose 109 H Calcium 9.2 Total Bilirubin 0.44 AST 19 ALT 11 Alkaline Phosphatase 67 Total Protein 6.8 Albumin 4.3 Globulin 2.5 Albumin/Globulin Ratio 1.7 HCG, Quant [id number] H Radiography Diagnostic Testing: Clinical Impression(s) from Imaging Studies Obstetrics Ultrasound 10/05/24 22:23 IMPRESSION: UNREMARKABLE FIRST TRIMESTER ULTRASOUND. Reading Location: [id number] Discharge Plan Triage Chief Complaint: Vag Bld, Preg ED Provider: Nikko Guerrero Dx/Rx/DC Orders Clinical Impression: Threatened miscarriage, Vaginal bleeding during Instructions: Bleeding During Early , Miscarriage Threatened Prescriptions: No Action PNV no.63-iron,bbabhrao-BE-plp 27 mg iron- 800 mcg-200 mg capsule 1 cap PO QDAY progesterone 50 mg/mL oil 10 mg IM QDAY conjugated estrogens 25 mg recon soln 25 mg IM ONCE Rx Instructions: as a single dose Primary Care Provider: Tatyana Matta Referrals: Nat Gomez MD [[facility] Staff - Active Staff] - Keep [facility] appointment Care Physician,No Primary [Non-Staff] - Print Language: Rwandan Disposition Disposition: Home, Self Care What to do if you have Problems For any increased pain, shortness of breath, bleeding, nausea or vomiting, chestpain, or any unexpected problems, contact your Primary Care Provider. Call [facility] ([phone]) or report to the closest Emergency Room. Call 911 if necessary. 10/06/24 0107 <Electronically signed by Nikko Guerrero MD> Cosigner Signature (if applicable): CC: Dr. Tatyana Matta MD ~ Signed [facility] Work Phone: 1(106) 892-592902-11-2025 Evaluation note* Diagnosis Onset Date Resolution Status Admit Date Segmental dysfunction of lumbar region resolved July 22, 2 025 2:56pm Segmental dysfunction of thoracic region resolved July 22, 2 025 2:56pm Segmental and somatic dysfunction of lumbar region inactive Feb ruary 2024 2:56pm [facility] Work Phone: 1(110) 727-950602-11-2025 Evaluation note* Diagnosis Onset Date Resolution Status Admit Date Segmental dysfunction of lumbar region resolved July 22, 2 025 2:56pm Segmental dysfunction of thoracic region resolved July 22 2 025 2:56pm Segmental and somatic dysfunction of lumbar region inactive Feb ruary 2024 2:56pm Conceived by in vitro fertilization acute October 07, 2024 2:42pm History of hemorrhage, currently acute A pril 2024 2:42pm Infertility acute October 07, 025 2:42pm acute October 07 2:42pm Supervision of high-risk acute October 07, 2024 2:42pm DIC (disseminated intravascular coagulation) resolved October 07, 2024 2:42pm Endometriosis resolved October 07, 2024 2:42pm Threatened miscarriage inactive Ap ril 2024 2:42pm Vaginal bleeding during inactive October 07, 2024 2:42pm Conceived by in vitro fertilization acute October 21, 2024 2 :48pm History of hemorrhage, currently acute M ay 2024 2:48pm Infertility acute October 21 2:48pm acute October 21, 2024 2:48pm Supervision of high-risk acute October 21, 2024 2 :48pm [facility] Work Phone: 1(522) 500-720102-11-2025 Evaluation note* Diagnosis Onset Date Resolution Status Admit Date Segmental dysfunction of lumbar region resolved July 22, 2 025 2:56pm Segmental dysfunction of thoracic region resolved July 22, 2 025 2:56pm Segmental and somatic dysfunction of lumbar region inactive Feb ruary 2024 2:56pm Conceived by in vitro fertilization acute October 07, 2024 2:42pm History of hemorrhage, currently acute A pril 2024 2:42pm Infertility acute October 07, 2 025 2:42pm acute October 07 2:42pm Supervision of high-risk acute October 07, 2024 2:42pm DIC (disseminated intravascular coagulation) resolved October 07, 2024 2:42pm Endometriosis resolved October 07, 2024 2:42pm Threatened miscarriage inactive Ap ril 2024 2:42pm Vaginal bleeding during inactive October 07, 2024 2:42pm Conceived by in vitro fertilization acute October 21, 2024 2 :48pm History of hemorrhage, currently acute M ay 2024 2:48pm Infertility acute October 21 2:48pm acute October 21, 2024 2:48pm Supervision of high-risk acute October 21, 2024 2 :48pm Conceived by in vitro fertilization acute November 04, 2024 3 :15pm History of hemorrhage, currently acute M ay 2024 3:15pm Infertility acute November 04 3:15pm acute November 04, 2024 3:15pm Supervision of high-risk acute November 04, 2024 3 :15pm [facility] Work Phone: 1(349) 918-499401-08-2024 Procedure [facility] 03-15-2023 History of Present illness Narrative* Deejay Glasgow PA-C - 03/15/2023 2:40 PM EDT Images from the original note were not included. [facility] [address] [place] [address] [address] [facility] [address] Dept: [phone] Dept Loc: [phone] Visit type: Established Patient Reason for Visit: Asthma (Wants tested ) Assessment and Plan 1. Bronchospasm - Complete PFT study - montelukast (Singulair) 10 MG tablet; Take 1 tablet (10 mg) by mouth Nightly., Starting Sun03/15/2023, Until Sun09/11/2023, Normal - XR chest 2 views - ipratropium-albuterol (Combivent Respimat) 20-100 MCG/ACT inhaler; Inhale 2 puffs 4 times daily.,Starting Niya 03/15/2023, Until Sun03/14/2024, Normal 2. Flu vaccine need - Flu vaccine quadrivalent (IIV4), for patients ages 6 mo+, (Flulaval) preservative free -Patient has reported episodes of bronchospasm and COPD exacerbation worse in the evening hours. Discussed the use of albuterol versus a Combivent inhaler to use on a as needed basis. We will do a trial period of 30 days for Rogelio to see if this helps with her symptoms. She has been anemic in the past. Did review her most recent blood work with her hemoglobin has returned to normal. She sounds clear at this point time there is no signs of acute respiratory distress or signs of wheezing at this point time. Symptoms all seem to be exacerbated or precipitated by recent COVID infection in January we did discuss long-haul COVID versus COVID lungs I suspect the symptoms will in the meantime resolved however should be sent for formal PFT study through [facility] per her request. Follow up if symptoms worsen or fail to improve, for Next scheduled follow-up. Subjective HPI this is a 33-year-old female with an underlying history of asthma contacted [facility] yesterday for next day appointment evaluation for concerns that she is having an asthmatic flare. Patient stated that she had COVID back in January and was 9 months at that time. She is currently 5 weeks and has had shortness of breath symptoms on and off ever since then. She endorses intermittent chest tightness and wheezing she did receive an inhaler from an urgent care and has been using itas she was told previously she had bronchitis states her home pulse ox was 97%. Has had problems with anemia in the past, and had some hemorrhaging issues with the delivery of baby Last March 24.4, jul 14.3, November 20.9, Jan 20., feb 13.6, Currently the patient has no acute distress no shortness of breath currently no chest pain palpitations as needed for tightness in her chest. She denies any current chest pain and pleuritic pain no abdominal pain she is currently breast- feeding her 5-week-old no acute concerns otherwise. Review of Systems Constitutional: Negative for chills and fever. HENT: Negative for congestion and sore throat. Respiratory: Positive for chest tightness and wheezing (Predominantly in the evening). Negative forcough and shortness of breath. Cardiovascular: Negative for chest pain. Gastrointestinal: Negative for abdominal pain, diarrhea, nausea and vomiting. Genitourinary: Negative for difficulty urinating, dysuria, frequency and urgency. Musculoskeletal: Negative for back pain. Neurological: Negative for dizziness and light-headedness. All other systems reviewed and are negative. Allergies Allergen Reactions Other Other reaction(s): Cough Typical hayfever symptoms Outpatient Medications Prior to Visit Medication Sig Dispense Refill levothyroxine (Synthroid, Levoxyl) 25 MCG tablet albuterol 108 (90 Base) MCG/ACT inhaler No facility-administered medications prior to visit. Past Medical History: Diagnosis Date Endometriosis 04/06/2021 Raynaud disease Social History Tobacco Use Smoking status: Never Smokeless tobacco: Never Substance Use Topics Alcohol use: Yes Past Surgical History: Procedure Laterality Date TONSILLECTOMY (HISTORICAL) 2001 WISDOM TOOTH EXTRACTION 2019 Family History Problem Relation Name Age of Onset No Known Problems Brother Hypertension Mother Cancer Mother lymphoma Thyroid disease Mother Diabetes Mother Cancer Father lung cancer, non-smoker Thyroid disease Sister Objective BP 99/68 (BP Location: Left arm, Patient Position: Sitting, BP Cuff Size: Large adult) Pulse 70 Temp 37.2 C (98.9 F) (Temporal) Ht 5' 7 (1.702 m) Wt 181 lb (82.1 kg) SpO2 99% BMI 28.35 kg/m Physical Exam Vitals reviewed. Constitutional: General: She is not in acute distress. Appearance: Normal appearance. She is not ill-appearing or toxic-appearing. HENT: Right Ear: Tympanic membrane and ear canal normal. Left Ear: Tympanic membrane and ear canal normal. Mouth/Throat: Mouth: Mucous membranes are moist. Pharynx: No oropharyngeal exudate or posterior oropharyngeal erythema. Eyes: General: No scleral icterus. Conjunctiva/sclera: Conjunctivae normal. Pupils: Pupils are equal, round, and reactive to light. Cardiovascular: Rate and Rhythm: Normal rate and regular rhythm. Heart sounds: Normal heart sounds. Pulmonary: Effort: Pulmonary effort is normal. No respiratory distress. Breath sounds: Normal breath sounds. No stridor. No wheezing or rales. Musculoskeletal: Cervical back: Normal range of motion and neck supple. Skin: General: Skin is warm and dry. Neurological: Mental Status: She is alert. Psychiatric: Mood and Affect: Mood normal. Data Reviewed and Summarized Labs: Imaging/Testing: Deejay Glasgow PA-C 03/15/2023 Please note that portions of this note may have been completed with voice recognition software. Documentation reviewed prior to signing but minor errors in validation technician may have occurred. documented in this [facility]10-05-2023 Instructions* Patient Instructions* Deejay Glasgow PA-C - 03/15/2023 2:40 PM EDT A PFT study has been ordered for you. Central scheduling should reach out to you within the next several days to schedule this appropriately. If you do not hear from central scheduling within the next several days please do not wait more than 1 week. Reach out to central scheduling to verify that the test has been ordered and to get it scheduled. Their number is [phone]. documented in this [facility]10-04-2023 Telephone encounter Note* Telephone Encounter - Sariah Parker RN - 03/14/2023 10:46 AM EDT S: Patient called the clinical access center with complaint of exacerbation of asthma B:pt said she had Covid in January and was 9 months . She said she has had the symptoms off and on since then. She is now 5 weeks post- A:Pt said she has intermittent chest tightness and wheezing. She said she has an inhaler she received from Urgent care when she had bronchitis. She said at night she coughs and it wakes her up. She uses 1 puff. Then sometimes needs another puff before 4 hours is up and it does help. Her pulse ox isreading 97% today. She denies chest pain, SOB at rest or productive cough. R:Appt 03/15 with Gustavo Glasgow at 240 pm. Pt declined POD scheduling for today. Pt advised to bring photo ID, insurance card, medications with them to their visit if possible. Covid questions: 1) Do you have signs or symptoms consistent with COVID-no 2) Have you been exposed to COVID in last 5 days-no 3) Have you tested positive for COVID in last 5 days-no Home care advise given to patient: When you use your inhaler do 2 puffs. Give a few seconds between puffs. DRINK PLENTY OF LIQUIDS * Drink plenty of liquids. It is important to stay well-hydrated. * A healthy adult should drink 8 cups (240 ml) or more of liquid each day. Warm fluids can help relax the airway Patient instructed to call back with worsening symptoms, concerns or questions. FIRST AID ADVICE FOR ASTHMA ATTACK: Take 4 puffs on your quick-relief inhaler (e.g., albuterol, salbutamol, Xopenex) right now. Reason for Disposition Patient wants to be seen Protocols used: Asthma [id number] [id number] Miscellaneous Notes* Telephone Encounter - Sariah Parker RN - 03/14/2023 10:46 AM EDT S: Patient called the clinical access center with complaint of exacerbation of asthma B:pt said she had Covid in January and was 9 months . She said she has had the symptoms off and on since then. She is now 5 weeks post- A:Pt said she has intermittent chest tightness and wheezing. She said she has an inhaler she received from Urgent care when she had bronchitis. She said at night she coughs and it wakes her up. She uses 1 puff. Then sometimes needs another puff before 4 hours is up and it does help. Her pulse ox isreading 97% today. She denies chest pain, SOB at rest or productive cough. R:Appt 03/15 with Gustavo Glasgow at 240 pm. Pt declined POD scheduling for today. Pt advised to bring photo ID, insurance card, medications with them to their visit if possible. Covid questions: 1) Do you have signs or symptoms consistent with COVID-no 2) Have you been exposed to COVID in last 5 days-no 3) Have you tested positive for COVID in last 5 days-no Home care advise given to patient: When you use your inhaler do 2 puffs. Give a few seconds between puffs. DRINK PLENTY OF LIQUIDS * Drink plenty of liquids. It is important to stay well-hydrated. * A healthy adult should drink 8 cups (240 ml) or more of liquid each day. Warm fluids can help relax the airway Patient instructed to call back with worsening symptoms, concerns or questions. FIRST AID ADVICE FOR ASTHMA ATTACK: Take 4 puffs on your quick-relief inhaler (e.g., albuterol, salbutamol, Xopenex) right now. Reason for Disposition Patient wants to be seen Protocols used: Asthma [id number] documented in this [facility]09-19-2023 Progress note Author Paola Voss [facility] February 27, 2023 8:14am Note Date/Time February 27, 2023 8:14am [facility] Medical Records Department [address] [place] [address] Progress Note - OBGYN 02/27/23810 MR#: [id number] Acct: [id number] Name: KATIE ROBB Rep #:[id number] : 1990 33 From: Paola Weeks DO PCP: SHANNAN VAZQUEZ DO Status:ADM I N Location: VT339-7 Subjective Subjective patient is laying in bed comfortably. She has no complaints other than some minor dizziness when bending over to pick something up. She is requesting to go home today. Labs were reviewed and are stable Objective Data Objective Data Vital Signs: Vital Signs Temp Pulse Resp BP Pulse Ox O2 Del Method 97.4 F L 76 18 106/60 98 Room Air 02/27/23 04:57 02/27/23 04:57 02/27/23 04:57 02/27/23 04:57 02/26/23 16:45 02/27/23 04:57 Oxygen Delivery Method Room Air Weight: 194 lb 0.108 oz Body Mass Index (BMI) 30.4 Intake & Output: Intake and Output for Last 24 Hours 02/25/23 02/26/23 02/27/23 23:59 23:59 23:59 Intake Total 3843.4 / 3843.4 3817.5 / 3817.5 Output Total 975 / 975 2240 / 2240 Balance 2868.4 / 2868.4 1577.5 / 1577.5 Lab / Micro Data 02/27/23 05:45 02/26/23 05:55 Labs: Laboratory Results - last 24 hr 02/25/23 13:40: Crossmatch See Detail 02/26/23 14:44: WBC 7.7, RBC 2.80 L, Hgb 9.1 L, Hct 26.2 L, MCV 93.6, MCH 32.5 H, MCHC 34.7, RDW Std Deviation 48.2 H, RDW Coeff of Evens 14.2, Plt Count 163, MPV12.2 H, Immature Gran % (Auto) 0.300, Neut % (Auto) 58.1, Lymph % (Auto) 27.0, [place] % (Auto) 10.5 H, Eos % (Auto) 3.6, Baso % (Auto) 0.5, Absolute Neuts (auto)4.5, Absolute Lymphs (auto) 2.09, Nucleated RBC % 0 02/27/23 05:45: WBC 7.4, RBC 2.97 L, Hgb 9.5 L, Hct 27.9 L, MCV 93.9, MCH 32.0, MCHC 34.1, RDW Std Deviation 47.0 H, RDW Coeff of Evens 13.9, Plt Count 174, MPV 11.8, Immature Gran % (Auto) 0.400, Neut % (Auto) 48.3, Lymph % (Auto) 34.9, [place] % (Auto) 6.5, Eos % (Auto) 9.2 H, Baso % (Auto) 0.7, Absolute Neuts (auto) 3.6, Absolute Lymphs (auto) 2.58, Nucleated RBC % 0 ROS Constitutional Constitutional: Denies chills, fatigue, fever(s), poor appetite or weakness Eyes Eyes: Denies blurry vision, change in vision, seeing flashes or spots in vision ENT HEENT: Denies dizziness, headache(s), loss taste/smell or sore throat Cardiovascular Cardiovascular: Denies chest pain, dizziness, dyspnea, irregular heart rhythm, palpitations or rapid heart rate Respiratory/Chest Respiratory/Chest: Denies chest tightness, cough, dyspnea or breast pain Gastrointestinal Gastrointestinal: Denies abdominal pain, constipation or vomiting Genitourinary Genitourinary: Denies dysuria or flank pain Musculoskeletal Musculoskeletal: Denies difficulty walking, joint pain, limited range of motion or numbness Neurologic Neurologic: Denies abnormal movements, abnormal speech, dizziness, numbness, seizure-like activity or syncope Psychiatric Psychiatric: Denies anxiety, behavioral changes, change in appetite, confusion, depression or suicidal thoughts Physical Exam Const alert, oriented x3 and no apparent distress General Appearance: cooperative and comfortable Resp normal respiratory effort Cardio regular rate GI normal to inspection, nondistended, normoactive bowel sounds GI Narrative: uterus is firm below umbilicus Palpation: soft Back/Spine no CVA tenderness and thoraco-lumbar ROM normal Extremity normal to inspection, no clubbing, cyanosis or edema, no calf tenderness and no pedal edema Psych mental status grossly normal, thought process normal, cooperative, affect normal, speech normal, activity/motor behavior normal, denies homicidal ideationand denies suicidal ideation Assessment & Plan (1) Acute postoperative anemia due to greater than expected blood loss: COMMENT: transfused 1 unit PRBCs and 1 unit FFP, will give 2nd unti PRBC (2) DIC (disseminated intravascular coagulation): COMMENT: clinical bleeding stable, given 1 unit PRBC and 1 unit FFP, repeat coags stable and improving, will give second unit PRBCs (3) Retained products of conception: COMMENT: 3 weeks PP, s/p suction d and c (4) hemorrhage: COMMENT: 3 weeks , given methergine hemabate, TXA, pitocin, cytotec, bakri balloon. ancef given while bakri balloon in. (5) Hypothyroid: COMMENT: continue synthroid PLAN: Plan Labs are stable today and bp is improved. patient would like to go home if possible. -plan to observe for a few more hours after breakfast to determine baseline bp. -start iron therapy at home -close follow up in one week. -strict restrictions at home discussed. 02/27/2314 <Electronically signed by Paola Weeks DO> Cosigner Signature (if applicable): CC: ~ Signed [facility] Work Phone: 1(145) 341-541509-18-2023 Discharge summary Author Nat Gomez [facility] February 26, 2023 5:18pm Note Date/Time February 25, 2023 11:02am [facility] Medical Records Department [facility] [place] [address] Instructions for Home/Discharge Instructions 02/25/23 1102 MR#: [id number] Acct: [id number] Name: KATIE ROBB Rep #:[id number] : 1990 33 From: Nat crum MD PCP: SHANNAN VAZQUEZ DO Status:ADM I N Discharge Instructions Diet Discharge Diet: No restrictions Activity Discharge Activity: Return to Normal Activity, May Shower and May Take a Tub Bath (after 1 week) May resume sexual activity in: 1-2 weeks Weight Bearing Status: Weight bearing as tolerated Lifting Restrictions: none Dressing / Incision Call your doctor if you observe: Fever of 101 or Higher, Using more than 1 pad per hour, Shortness of breath and Uncontrolled pain Follow Up Care Please Follow Up With: Nat Gomez MD When: Call [phone] to schedule appointment. Test Results: Test results from this visit will be discussed in further detail at your follow- up appointment, if applicable. Discharge Plan Admission Attending Provider: Nat Gomez Primary Care Provider: SHANNAN VAZQUEZ Discharge Orders/Prescriptions Prescriptions: No Action PNV-DHA 27 mg iron-1 mg -300 mg capsule 1 cap PO DAILY levothyroxine 25 mcg tablet 25 mcg PO DAILY Qty: 90 3RF albuterol sulfate 90 mcg/actuation HFA aerosol inhaler 2 puff INHALATION Q6H PRN (Reason: shortness of breath or wheezing) Patient Comments: Inhale 2 puff every 6Yhours As Needed for shortness of breath or wheezing Referrals / Follow Up: SAHNNAN VAZQUEZ DO [Primary Care Provider] - Disposition Disposition (needs filled in before D/C Order can be placed): Home, Self Care 02/26/238<Electronically signed by Nat Gomez MD>Nat Gomez MD CC: SHANNAN VAZQUEZ DO; Dr. Nidhi Haro MD ~ Signed [facility] Work Phone: 1(388) 120-173709-18-2023 Progress note Author Nat Gomez [facility] February 26, 2023 5:18pm Note Date/Time February 26, 2023 10:22am [facility] Medical Records Department [address] [place] [address] Progress Note 02/26/23 1020 MR#: [id number] Acct: [id number] Name: KATIE ROBB Rep #:[id number] : 1990 33 From: Nidhi Haro MD PCP: SHANNAN VAZQUEZ, DO Status:ADM I N Location: [place] [address] Subjective Subjective Patient seen and examined. She had no complaints and had an uneventful night. She is still having some bleeding. BP has improved. She was transferred to ICU due to concerns about DIC. Hypotension has now resolved. She is being transfusedwith one unit of PRBC. Bakri balloon was removed by or assistant. Objective Data Objective Data Vital Signs: Vital Signs Temp Pulse Resp BP Pulse Ox O2 Del Method 97.9 F 75 12 99/70 100 Room Air 02/26/23 09:22 02/26/23 09:22 02/26/23 09:22 02/26/23 09:22 02/26/23 09:22 02/26/23 09:22 Oxygen Delivery Method Room Air Weight: 194 lb 0.108 oz Body Mass Index (BMI) 30.4 Intake & Output: Intake and Output for Last 24 Hours 02/24/23 02/25/23 02/26/23 23:59 23:59 23:59 Intake Total 3843.4 / 3843.4 1220 / 1220 Output Total 975 / 975 890 / 890 Balance 2868.4 / 2868.4 330 / 330 Lab / Micro Data 02/26/23 05:55 02/26/23 05:55 Labs: Laboratory Results - last 24 hr 02/25/23 07:27: Blood Type Cancelled, Antibody Screen Cancelled, Crossmatch See Detail 02/25/23 13:40: WBC 14.2 H, RBC 2.77 L, Hgb 9.4 L, Hct 26.9 L, MCV 97.1, MCH 33.9 H, MCHC 34.9, RDW Std Deviation 49.2 H, RDW Coeff of Evens 13.8, Plt Count 313, MPV 12.0, PT 15.9 H, INR 1.3, APTT 28.3, Fibrinogen 175 L, Sodium 143, Potassium 4.4, Chloride 116 H, Carbon Dioxide 24.0, Anion Gap 3 L, BUN 10, Creatinine 1.05 H, Estim Creat Clear Calc 75.49, Est GFR (MDRD) Af Amer 79, Est GFR (MDRD) Non-Af 65, BUN/Creatinine Ratio 9.5 L, Glucose 123 H, Calcium 7.3 L, Blood Type O POSITIVE, Antibody Screen NEGATIVE, Crossmatch See Detail 02/25/23 13:40: Crossmatch See Detail 02/25/23 16:17: PT 16.8 H, INR 1.4, APTT 24.5, Fibrinogen 81 L* 02/25/23 16:20: WBC Cancelled, Corrected WBC Cancelled, RBC Cancelled, Hgb Cancelled, Hct Cancelled, MCV Cancelled, MCH Cancelled, MCHC Cancelled, RDW Std Deviation Cancelled, RDW Coeff of Evens Cancelled, Plt Count Cancelled, MPV Cancelled, Immature Gran % (Auto) Cancelled, Neut % (Auto) Cancelled, Lymph % (Auto) Cancelled, [place] % (Auto) Cancelled, Eos % (Auto) Cancelled, Baso % (Auto)Cancelled, Absolute Neuts (auto) Cancelled, Absolute Lymphs (auto) Cancelled, Total Counted Cancelled, Neutrophils % (Manual) Cancelled, Band Neutrophils % Cancelled, Lymphocytes % (Manual) Cancelled, Monocytes % (Manual) Cancelled, Eosinophils % (Manual) Cancelled, Basophils % (Manual) Cancelled, Metamyelocytes% Cancelled, Myelocytes % Cancelled, Promyelocytes % Cancelled, Blast Cells % Cancelled, Plasma Cell % (Manual) Cancelled, Other Cells % Cancelled, Nucleated RBC % Cancelled, Nucleated RBCs/100 WBC Cancelled, Differential Comment Cancelled, Diff Path Review Cancelled, Hypersegmented Neuts Cancelled, Atypical Lymphocytes Cancelled, Reactive Lymphocytes Cancelled, Smudge Cells Cancelled, Toxic Granulation Cancelled, Toxic Vacuolation Cancelled, Dohle Bodies Cancelled, Scotty Rods Cancelled, Platelet Estimate Cancelled, Plt Morphology Comment Cancelled, RBC Morphology Cancelled 02/25/23 16:20: RBC Morphology Cancelled, Polychromasia Cancelled, HypochromasiaCancelled, Poikilocytosis Cancelled, Basophilic Stippling Cancelled, Anisocytosis Cancelled, Microcytosis Cancelled, Macrocytosis Cancelled, Spherocytes Cancelled, Sickle Cells Cancelled, Target Cells Cancelled, Tear DropCells Cancelled, Ovalocytes Cancelled, Stomatocytes Cancelled, Lynn-Ventura Bodies Cancelled, Pierson Cells Cancelled, Bite Cells Cancelled, Crenated Cell Cancelled, Acanthocytes (Spur) Cancelled, Rouleaux Cancelled, Schistocytes Cancelled 02/25/23 21:00: WBC 15.9 H, RBC 2.70 L, Hgb 8.7 L, Hct 26.5 L, MCV 98.1, MCH 32.2 H, MCHC 32.8 D, RDW Std Deviation 50.2 H, RDW Coeff of Evens 14.0, Plt [id number], MPV 12.0 02/26/23 00:30: WBC 12.3 H, RBC 2.58 L, Hgb 8.4 L, Hct 24.6 L, MCV 95.3, MCH 32.6 H, MCHC 34.1, RDW Std Deviation 47.8 H, RDW Coeff of Evens 13.8, Plt Count 182, MPV 11.8, Immature Gran % (Auto) 0.600, Neut % (Auto) 72.9 H, Lymph % (Auto) 18.8 L, [place] % (Auto) 7.2, Eos % (Auto) 0.2, Baso % (Auto) 0.3, Absolute Neuts (auto) 9.0 H, Absolute Lymphs (auto) 2.31, Nucleated RBC % 0, PT 15.5 H, INR 1.2, APTT 25.0, Fibrinogen 201 L, D-Dimer Quant (PE/DVT) 0.82 H*, Total Bilirubin 0.40, Direct Bilirubin 0.13, AST 13 L, ALT 19, Alkaline Phosphatase 80, Total Protein 5.0 L, Albumin 2.8 L, Globulin 2.2 02/26/23 05:55: WBC 9.4, RBC 2.44 L, Hgb 7.8 L, Hct 23.2 L, MCV 95.1, MCH 32.0, MCHC 33.6, RDW Std Deviation 48.8 H, RDW Coeff of Evens 14.2, Plt Count 165, MPV 12.0, Immature Gran % (Auto) 0.500, Neut % (Auto) 64.7, Lymph % (Auto) 23.6, [place] % (Auto) 8.9, Eos % (Auto) 1.9, Baso % (Auto) 0.4, Absolute Neuts (auto) 6.1, Absolute Lymphs (auto) 2.23, Nucleated RBC % 0, PT 15.2 H, INR 1.2, APTT 29.0, Fibrinogen 201 L, Sodium 141, Potassium 4.0, Chloride 112 H, Carbon Dioxide 26.0, Anion Gap 3 L, BUN 8, Creatinine 0.96, Estim Creat Clear Calc 82.57, Est GFR (MDRD) Af Amer 87, Est GFR (MDRD) Non-Af 72, BUN/Creatinine Ratio8.3 L, Glucose 97, Calcium 7.8 L, Total Bilirubin 0.40, Direct Bilirubin 0.15, AST 12 L, ALT 16, Alkaline Phosphatase 77, Total Protein 4.6 L, Albumin 2.5 L, Globulin 2.1 L Physical Exam Const alert, oriented x3 and no apparent distress General Appearance: cooperative and well developed HEENT normocephalic, head/scalp atraumatic, moist oral mucous membranes and oropharynxnormal Eyes PERRL and EOMs intact bilaterally Neck no lymphadenopathy, supple and no JVD Lymph Lymphatic: no lymphadenopathy noted and no lymphedema noted Resp normal respiratory effort, normal air movement and clear to auscultation bilaterally Cardio regular rate, regular rhythm, S1 normal heart sound, S2 normal heart sound and no murmurs GI normal to inspection, nondistended, normoactive bowel sounds, soft to palpation,non-tender and non-distended Extremity normal capillary refill, no clubbing, cyanosis or edema and no calf tenderness Skin General Skin Exam: no breakdown and turgor normal Neuro CN's II-XII intact bilaterally, no focal motor deficits and no sensory deficits noted Motor Exam: strength 5/5 throughout Psych thought process normal, cooperative and affect normal Appearance: appropriate Assessment & Plan Assessment/Plan (1) Acute postoperative anemia due to greater than expected blood loss: (2) DIC (disseminated intravascular coagulation): PLAN: Plan #Acute blood loss anemia due to post hemorrhage and probable DIC * Had retained products of conception after delivery. She is status post D&C and balloon placement. She was also given Methergine and tranexamic acid. * There is concern for DIC due to decreased fibrinogen and increased PT. She has been given a unit of FFP's and given a units of packed red blood cells today as well as hemoglobin of 7.8. * Obstetrics on board. Being transfused with 4 units of blood red blood cells today. * Bakri balloon removed. For likely transfer out of unit today she remained stable. * #Hypotension * BP remains down in the 90s systolic. continue hydration with iVF Ringer's lactate at 150cc/hr * being transfused with a unit of PRBCs also. * #Hypothyroidism: on synthroid DVT prophylaxis: SCDs Charges/Coding Visit Charges Inpatient E&M: 18334 Subs Hosp L2 02/26/23 1554 <Electronically signed by Nidhi Haro MD> Nidhi Haro MD Cosigner Signature (if applicable): 02/26/23 1718 <Electronically signed by Nat Gomez MD> CC: ~ Signed [facility] Work Phone: 1(730) 938-340409-18-2023 Progress [facility] 26, 2023 3:13pm Note Date/Time February 26, 2023 3:14pm [facility] Medical Records Department [address] [place] [address] Progress Note 02/26/231512 MR#: [id number] Acct: [id number] Name: KATIE ROBB Rep #:[id number] : 1990 33 From: Nat crum MD PCP: SHANNAN VAZQUEZ, DO Status:ADM I N Location: ICU CVICU 2-1 Progress Note patient seen over lunch hour- bleeding minimal, sitting up in chair vitals stable no dizziness, reviewed labs post transfusion stable for transfer to floor. 02/26/231512 <Electronically signed by Nat Gomez MD> Nat Gomez MD Cosigner Signature (if applicable): CC: ~ Signed [facility] Work Phone: [phone] Progress [facility] February 26, 2023 8:07am Note Date/Time February 26, 2023 7:45am [facility] Medical Records Department [address] [place] [address] Progress Note - OBGYN 02/26/2345 MR#: [id number] Acct: [id number] Name: KATIE ROBB Rep #:[id number] : 1990 33 From: Nat crum MD PCP: SHANNAN VAZQUEZ, DO Status:ADM I N Location: ICU CVICU20 2-1 Subjective Subjective no CP SOB N V mild ZHANG feels weak no dizziness bleeding minimal Objective Data Objective Data Vital Signs: Vital Signs Temp Pulse Resp BP Pulse Ox O2 Del Method 98 F 79 16 102/67 97 Room Air 02/26/23 05:00 02/26/23 06:00 02/26/23 06:00 02/26/23 06:00 02/26/23 06:00 02/26/23 06:00 Oxygen Delivery Method Room Air Weight: 194 lb 0.108 oz Body Mass Index (BMI) 30.4 Intake & Output: Intake and Output for Last 24 Hours 02/24/23 02/25/23 02/26/23 23:59 23:59 23:59 Intake Total 3843.4 / 3843.4 1110 / 1110 Output Total 975 / 975 890 / 890 Balance 2868.4 / 2868.4 220 / 220 Lab / Micro Data 02/26/23 05:55 02/26/23 05:55 Labs: Laboratory Results - last 24 hr 02/25/23 07:05: PT 13.5, INR 1.0, APTT 32.3 02/25/23 07:27: Blood Type Cancelled, Antibody Screen Cancelled, Crossmatch See Detail 02/25/23 13:40: WBC 14.2 H, RBC 2.77 L, Hgb 9.4 L, Hct 26.9 L, MCV 97.1, MCH 33.9 H, MCHC 34.9, RDW Std Deviation 49.2 H, RDW Coeff of Evens 13.8, Plt Count 313, MPV 12.0, PT 15.9 H, INR 1.3, APTT 28.3, Fibrinogen 175 L, Sodium 143, Potassium 4.4, Chloride 116 H, Carbon Dioxide 24.0, Anion Gap 3 L, BUN 10, Creatinine 1.05 H, Estim Creat Clear Calc 75.49, Est GFR (MDRD) Af Amer 79, Est GFR (MDRD) Non-Af 65, BUN/Creatinine Ratio 9.5 L, Glucose 123 H, Calcium 7.3 L, Blood Type O POSITIVE, Antibody Screen NEGATIVE, Crossmatch See Detail 02/25/23 13:40: Crossmatch See Detail 02/25/23 16:17: PT 16.8 H, INR 1.4, APTT 24.5, Fibrinogen 81 L* 02/25/23 16:20: WBC Cancelled, Corrected WBC Cancelled, RBC Cancelled, Hgb Cancelled, Hct Cancelled, MCV Cancelled, MCH Cancelled, MCHC Cancelled, RDW Std Deviation Cancelled, RDW Coeff of Evens Cancelled, Plt Count Cancelled, MPV Cancelled, Immature Gran % (Auto) Cancelled, Neut % (Auto) Cancelled, Lymph % (Auto) Cancelled, [place] % (Auto) Cancelled, Eos % (Auto) Cancelled, Baso % (Auto)Cancelled, Absolute Neuts (auto) Cancelled, Absolute Lymphs (auto) Cancelled, Total Counted Cancelled, Neutrophils % (Manual) Cancelled, Band Neutrophils % Cancelled, Lymphocytes % (Manual) Cancelled, Monocytes % (Manual) Cancelled, Eosinophils % (Manual) Cancelled, Basophils % (Manual) Cancelled, Metamyelocytes % Cancelled, Myelocytes % Cancelled, Promyelocytes % Cancelled, Blast Cells % Cancelled, Plasma Cell % (Manual) Cancelled, Other Cells % Cancelled, Nucleated RBC % Cancelled, Nucleated RBCs/100 WBC Cancelled, Differential Comment Cancelled, Diff Path Review Cancelled, Hypersegmented Neuts Cancelled, Atypical Lymphocytes Cancelled, Reactive Lymphocytes Cancelled, Smudge Cells Cancelled, Toxic Granulation Cancelled, Toxic Vacuolation Cancelled, Dohle Bodies Cancelled, Scotty Rods Cancelled, Platelet Estimate Cancelled, Plt Morphology Comment Cancelled, RBC Morphology Cancelled 02/25/23 16:20: RBC Morphology Cancelled, Polychromasia Cancelled, HypochromasiaCancelled, Poikilocytosis Cancelled, Basophilic Stippling Cancelled, Anisocytosis Cancelled, Microcytosis Cancelled, Macrocytosis Cancelled, Spherocytes Cancelled, Sickle Cells Cancelled, Target Cells Cancelled, Tear DropCells Cancelled, Ovalocytes Cancelled, Stomatocytes Cancelled, Lynn-Ventura Bodies Cancelled, Pierson Cells Cancelled, Bite Cells Cancelled, Crenated Cell Cancelled, Acanthocytes (Spur) Cancelled, Rouleaux Cancelled, Schistocytes Cancelled 02/25/23 21:00: WBC 15.9 H, RBC 2.70 L, Hgb 8.7 L, Hct 26.5 L, MCV 98.1, MCH 32.2 H, MCHC 32.8 D, RDW Std Deviation 50.2 H, RDW Coeff of Evens 14.0, Plt [id number], MPV 12.0 02/26/23 00:30: WBC 12.3 H, RBC 2.58 L, Hgb 8.4 L, Hct 24.6 L, MCV 95.3, MCH 32.6 H, MCHC 34.1, RDW Std Deviation 47.8 H, RDW Coeff of Evens 13.8, Plt Count 182, MPV 11.8, Immature Gran % (Auto) 0.600, Neut % (Auto) 72.9 H, Lymph % (Auto) 18.8 L, [place] % (Auto) 7.2, Eos % (Auto) 0.2, Baso % (Auto) 0.3, Absolute Neuts (auto) 9.0 H, Absolute Lymphs (auto) 2.31, Nucleated RBC % 0, PT 15.5 H, INR 1.2, APTT 25.0, Fibrinogen 201 L, D-Dimer Quant (PE/DVT) 0.82 H*, Total Bilirubin 0.40, Direct Bilirubin 0.13, AST 13 L, ALT 19, Alkaline Phosphatase 80, Total Protein 5.0 L, Albumin 2.8 L, Globulin 2.2 02/26/23 05:55: WBC 9.4, RBC 2.44 L, Hgb 7.8 L, Hct 23.2 L, MCV 95.1, MCH 32.0, MCHC 33.6, RDW Std Deviation 48.8 H, RDW Coeff of Evens 14.2, Plt Count 165, MPV 12.0, Immature Gran % (Auto) 0.500, Neut % (Auto) 64.7, Lymph % (Auto) 23.6, [place] % (Auto) 8.9, Eos % (Auto) 1.9, Baso % (Auto) 0.4, Absolute Neuts (auto) 6.1, Absolute Lymphs (auto) 2.23, Nucleated RBC % 0, PT 15.2 H, INR 1.2, APTT 29.0, Fibrinogen 201 L, Sodium 141, Potassium 4.0, Chloride 112 H, Carbon Dioxide 26.0, Anion Gap 3 L, BUN 8, Creatinine 0.96, Estim Creat Clear Calc 82.57, Est GFR (MDRD) Af Amer 87, Est GFR (MDRD) Non-Af 72, BUN/Creatinine Ratio8.3 L, Glucose 97, Calcium 7.8 L, Total Bilirubin 0.40, Direct Bilirubin 0.15, AST 12 L, ALT 16, Alkaline Phosphatase 77, Total Protein 4.6 L, Albumin 2.5 L, Globulin 2.1 L Radiography Diagnostic Testing: Radiology Impression Transvaginal US 02/25/23 07:16 IMPRESSION: Heterogeneous endometrium with cystic regions and prominent vascularity suggesting retained products of conception. Electronically Signed: Arthur Vazquez MD at 10:08 EDT , ROS Constitutional Constitutional: Reports systems reviewed and no addt'l complaints, except as documented Cardiovascular Cardiovascular: Reports systems reviewed and no addt'l complaints, except as documented Respiratory/Chest Respiratory/Chest: Reports systems reviewed and no addt'l complaints, except as documented Gastrointestinal Gastrointestinal: Reports systems reviewed and no addt'l complaints, except as documented Physical Exam Const alert, oriented x3 and no apparent distress HEENT Head and Scalp: atraumatic Resp normal respiratory effort Cardio regular rhythm GI soft to palpation and non-tender Inspection: Negative for abdominal distention Extremity normal to inspection Skin no rashes or lesions noted Assessment & Plan (1) Hypothyroid: COMMENT: continue synthroid (2) Retained products of conception: COMMENT: 3 weeks PP, s/p suction d and c (3) hemorrhage: COMMENT: 3 weeks , given methergine hemabate, TXA, pitocin, cytotec, bakri balloon. ancef given while bakri balloon in. (4) DIC (disseminated intravascular coagulation): COMMENT: clinical bleeding stable, given 1 unit PRBC and 1 unit FFP, repeat coags stable and improving, will give second unit PRBCs (5) Acute postoperative anemia due to greater than expected blood loss: COMMENT: transfused 1 unit PRBCs and 1 unit FFP, will give 2nd unti PRBC PLAN: Plan see a/p comments for plan details scds on appreciate ICU level care- will transfuse additional unit now and repeat labs 4 hours post transfusion, if stays clinically stable anticipate transfer to floor this afternoon. bakri balloon removed this morning, monitoring vaginal bleeding. methering x 24hours given. continue ancef unti ltransfer to floor. resolution of abnormal coag panel, additional until of prbcs given due to Hg below 8, symptomatic with borderline low bps and patient clinical scenario. 02/26/23 0807 <Electronically signed by Nat Gomez MD> Cosigner Signature (if applicable): CC: ~ Signed [facility] Work Phone: [phone]) 168-778609-18-2023 Progress note Author Nat Gomez [facility] February 26, 2023 12:30am Note Date/Time February 26, 2023 12:30am [facility] Medical Records Department [address] [place] [address] Progress Note 02/26/23 0028 MR#: [id number] Acct: [id number] Name: KATIE ROBB Rep #:[id number] : 1990 33 From: Nat crum MD PCP: SHANNAN VAZQUEZ DO Status:ADM I N Location: ICU CVICU20 2-1 Progress Note patient seen- repeat labs being drawn now. pain controlled, no CP SOB N V. bleeding minimal- 25 cc in bakri balloon catheter. good urine output and milk output. lower bp but heart rate stable in the 80s. scds on. await repeat labs. will remove bakri balloon in am. 02/26/23 0030 <Electronically signed by Nat Gomez MD> Nat Gomez MD Cosigner Signature (if applicable): CC: ~ Signed [facility] Work Phone: [phone] 376-657709-18-2023 Discharge summary Author Elliot Hill [facility] February 25, 2023 11:26pm Note Date/Time February 25, 2023 8:04am [facility] Medical Records Department [address] [place] [address] Emergency Department Summary 02/25/23 MR#: [id number] Acct: [id number] Name: KATIE ROBB Rep #:[id number] : 1990 33 From: Sampson Orr PCP: SHANNAN VAZQUEZ DO Status:ADM I N Location: ICU CVICU20 2-1 HPI <Dr. Elliot Hill DO - Last Filed: 02/25/23 23:26> HPI - Female History of Present Illness Chief Complaint: Vag Bleeding Informant: patient and spouse/S.O. Narrative Narrative: Patient is a 33-year-old female with no significant past medical history who presents with vaginal bleeding. She is a G1, P1 who delivered vaginally roughly 3 weeks ago. She states she carried the baby to full-term buthad to undergo in vitro fertilization for this . She states that sinceWednday she will notice bouts of vaginal bleeding with clots when she typically sits down to breast- feed. She states that the past few days she wouldpass a clot or 2 and the bleeding would stop. She states however starting Sunday night around 7 PM she began with bleeding and passage of clots that waspersistent throughout the night which was abnormal for her. She states because the bleeding has been prolonged she became concerned and secondary to this comesin for evaluation. She denies any history of bleeding disorder or blood thinneruse PFSH <Dr. Elliot Hill DO - Last Filed: 02/25/23 23:26> PFSH Medical History Conceived by in vitro fertilization COVID-19 Endometriosis Infertility Low-lying placenta Raynauds syndrome Recurrent bacterial infection Vaginal delivery Home Medications multivitamin no.47-iron fum 27 mg-folate no.1 1 mg-dha 300 mg capsule (PNV-DHA)1 cap PO DAILY 07/06/22 [History Last Taken Unknown] levothyroxine 25 mcg tablet 25 mcg PO DAILY #90 tabs 09/26/22 [Rx Last Taken Unknown] albuterol sulfate 90 mcg/actuation aerosol inhaler 2 puff inhalation Q6H PRN shortness of breath or wheezing 02/25/23 [History Last Taken Unknown] Allergy/AdvReac Type Severity Reaction Status Date / Time No Known Allergies Allergy Verified 02/25/23 06:57 Family History Father Lung cancer, Onset Age: 42 Mother Lymphoma, Onset Age: 54 Surgical History (Updated 02/01/23 @ 19:40 by Rosemarie Peacock) History of surgery Hx of laparoscopy Hx of tonsillectomy Hx of wisdom tooth extraction Social History adopted: No household members: spouse housing: house current occupational status: employed 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 current occupational exposures/hazards: No pets and animals: Yes pets and animals: dog(s) history of recent travel: No sexually active: Yes Smoking Status: Never smoker alcohol intake: never substance use type: does not use well-balanced diet: daily or most days caffeine: No eating out: rarely or never during the past year weight has: increased > 10 lbs what type of physical activity do you participate in: walking, yoga and weight training frequency: 3-4 times per week duration: 30-45 minutes/day diego/worship: None seatbelt use: always do you feel safe at home: Yes additional social history: - Yayo EASLEY <Dr. Elliot Hill, DO - Last Filed: 02/25/23 23:26> ROS ED Constitutional Constitutional ED: Denies chills or fever(s) Eyes Eyes: Denies change in vision ENT ENT ED: Denies sore throat Cardiovascular Cardiovascular: Denies chest pain or palpitations Respiratory/Chest Respiratory/Chest: Denies cough or dyspnea Gastrointestinal Gastrointestinal: Reports abdominal pain; Denies diarrhea, nausea or vomiting Genitourinary Genitourinary ED: Reports other Details: Positive vaginal bleeding ; Denies dysuria Musculoskeletal Musculoskeletal: Denies myalgias Integumentary Denies rash Neurologic Neurologic: Denies headache(s) Hematologic/Lymphatic Hematologic/Lymphatic: Denies easy bleeding or easy bruising EXAM <Dr. Elliot Hill, DO - Last Filed: 02/25/23 23:26> Physical Exam Const Vital Signs: 02/25/23 06:57 02/25/23 08:13 02/25/23 08:56 Temperature 97.8 F Temperature Source Temporal Pulse Rate 87 69 77 Respiratory Rate 16 14 Blood Pressure 127/83 H 128/82 H 121/69 H Blood Pressure Mean 97 97 86 Blood Pressure Source Blood Pressure Position Pulse Ox 100 98 Oxygen Delivery Method Room Air 02/25/23 09:41 09/17/23 10:34 02/25/23 11:00 Temperature Temperature Source Pulse Rate 74 90 71 Respiratory Rate 16 18 16 Blood Pressure 124/110 H 117/84 H 114/66 Blood Pressure Mean 114 95 82 Blood Pressure Source Monitor Blood Pressure Position Sitting Pulse Ox 98 98 97 Oxygen Delivery Method Room Air Room Air Positive well nourished and well developed General Appearance ED: well developed HEENT Reports moist mucous membranes Eyes PERRL and EOMs intact bilaterally General Eye ED: Yes pale conjunctiva Neck supple Resp normal respiratory effort and clear to auscultation bilaterally Cardio regular rate and regular rhythm GI non-distended GI Narrative: There is mild pain with palpation in the suprapubic region without voluntary guarding or rigidity. No pulsatile mass Auscultation: normoactive bowel sounds Palpation: soft Narrative: External genitalia is normal. Patient does have a large clot at the opening of the vaginal os. This was removed and the speculum was inserted and there was brisk dark red blood filling a quarter to half of the vaginal vault and then patient expressed a large clot consistent with her history. No obvious vaginal laceration noted Extremity normal to inspection Neuro oriented x3 and CN's II-XII intact bilaterally Sensorium / Orientation: alert Psych mental status grossly normal Skin no rashes or lesions noted Skin Narrative: Skin is pale in color but capillary refill remains less than 3 seconds <Dr. Sampson De León, DO - Last Filed: 02/25/23 15:47> Physical Exam Const Vital Signs: 02/25/23 06:57 02/25/23 08:13 02/25/23 08:56 Temperature 97.8 F Temperature Source Temporal Pulse Rate 87 69 77 Respiratory Rate 16 14 Blood Pressure 127/83 H 128/82 H 121/69 H Blood Pressure Mean 97 97 86 Blood Pressure Source Blood Pressure Position Pulse Ox 100 98 Oxygen Delivery Method Room Air 02/25/23 09:41 02/25/23 10:34 02/25/23 11:00 Temperature Temperature Source Pulse Rate 74 90 71 Respiratory Rate 16 18 16 Blood Pressure 124/110 H 117/84 H 114/66 Blood Pressure Mean 114 95 82 Blood Pressure Source Monitor Blood Pressure Position Sitting Pulse Ox 98 98 97 Oxygen Delivery Method Room Air Room Air MDM <Dr. Elliot Hill, DO - Last Filed: 09/17/23 23:26> [facility] MDM Narrative Medical decision making narrative: Patient presented to the ER awake and alert with stable vital. She reported that she been passing blood and clots for approximately 12 hours. She is pale with pale conjunctiva concerning for acute blood loss anemia. Secondary to thisbasic labs with type and screen were obtained and patient was started on IV hydration. CUSTOMER CARE TEAM COACH was contacted and they recommended emergent pelvic ultrasoundto further assess the cause of her bleeding but recommend patient also received TXA and Methergine. Patient was provided these medications and remained hemodynamically stable. At this time she is pending evaluation by her ultrasound and repeat consultation with CUSTOMER CARE TEAM COACH. Therefore patient be signed outto the day physician Dr. De León and these results History & Record Review Discussion w/independent historian: Patient and Significant other Lab Data Attestation: I reviewed the patient's lab results. Labs: Laboratory Results - last 24 hr 02/25/23 02/25/23 07:05 07:27 WBC 10.3 RBC 4.02 L Hgb 13.6 Hct 38.0 MCV 94.5 MCH 33.8 H MCHC 35.8 RDW Std Deviation 47.0 H RDW Coeff of Evens 13.5 Plt Count 273 MPV 11.8 Immature Gran % (Auto) 0.400 Neut % (Auto) 45.9 L Lymph % (Auto) 34.3 [place] % (Auto) 7.4 Eos % (Auto) 10.9 H Baso % (Auto) 1.1 H Absolute Neuts (auto) 4.7 Absolute Lymphs (auto) 3.53 Nucleated RBC % 0 PT 13.5 INR 1.0 APTT 32.3 Sodium 140 Potassium 3.8 Chloride 107 Carbon Dioxide 27.0 Anion Gap 6 BUN 13 Creatinine 1.14 H Estim Creat Clear Calc 69.53 Est GFR (MDRD) Af Amer 71 Est GFR (MDRD) Non-Af 59 L BUN/Creatinine Ratio 11.4 Glucose 97 Calcium 9.3 Blood Type Cancelled Cancelled Antibody Screen Cancelled Cancelled Crossmatch See Detail Radiography Diagnostic Testing: Clinical Impression(s) from Imaging Studies Transvaginal US 02/25/23 07:16 IMPRESSION: Heterogeneous endometrium with cystic regions and prominent vascularity suggesting retained products of conception. Electronically Signed: Arthur Vazquez MD at 10:08 EDT , <Dr. Sampson De León, DO - Last Filed: 02/25/23 15:47> [facility] Narrative Medical decision making narrative: Patient presented to the ER awake and alert with stable vital. She reported that she been passing blood and clots for approximately 12 hours. She is pale with pale conjunctiva concerning for acute blood loss anemia. Secondary to thisbasic labs with type and screen were obtained and patient was started on IV hydration. CUSTOMER CARE TEAM COACH was contacted and they recommended emergent pelvic ultrasoundto further assess the cause of her bleeding but recommend patient also received TXA and Methergine. Patient was provided these medications and remained hemodynamically stable. At this time she is pending evaluation by her ultrasound and repeat consultation with CUSTOMER CARE TEAM COACH. Therefore patient be signed outto the day physician Dr. De León and these results Le: Patient signed out to me pending ultrasound. Results notes concerns for retained products of conception. Reevaluated patient after medication no significant bleeding. Vitals remained stable. I did read discussed with Dr. Gomez, with findings she will be taken to the OR for D&C from the ED. Lab Data Labs: Laboratory Results - last 24 hr 02/25/23 02/25/23 07:05 07:27 WBC 10.3 RBC 4.02 L Hgb 13.6 Hct 38.0 MCV 94.5 MCH 33.8 H MCHC 35.8 RDW Std Deviation 47.0 H RDW Coeff of Evens 13.5 Plt Count 273 MPV 11.8 Immature Gran % (Auto) 0.400 Neut % (Auto) 45.9 L Lymph % (Auto) 34.3 [place] % (Auto) 7.4 Eos % (Auto) 10.9 H Baso % (Auto) 1.1 H Absolute Neuts (auto) 4.7 Absolute Lymphs (auto) 3.53 Nucleated RBC % 0 PT 13.5 INR 1.0 APTT 32.3 Sodium 140 Potassium 3.8 Chloride 107 Carbon Dioxide 27.0 Anion Gap 6 BUN 13 Creatinine 1.14 H Estim Creat Clear Calc 69.53 Est GFR (MDRD) Af Amer 71 Est GFR (MDRD) Non-Af 59 L BUN/Creatinine Ratio 11.4 Glucose 97 Calcium 9.3 Blood Type Cancelled Cancelled Antibody Screen Cancelled Cancelled Crossmatch See Detail Radiography Diagnostic Testing: Clinical Impression(s) from Imaging Studies Transvaginal US 02/25/23 07:16 IMPRESSION: Heterogeneous endometrium with cystic regions and prominent vascularity suggesting retained products of conception. Electronically Signed: Arthur Vazquez MD at 10:08 EDT Reading Location ID and State: [address] [place] [address] , Service support , Discharge Plan Dx/Rx/DC Orders Clinical Impression: hemorrhage Disposition Disposition: Acute Care Hospital [facility] Discharge Date/Time: 02/25/23 11:16 What to do if you have Problems For any increased pain, shortness of breath, bleeding, nausea or vomiting, chestpain, or any unexpected problems, contact your Primary Care Provider. Call [facility] ([phone]) or report to the closest Emergency Room. Call 911 if necessary. 02/25/23 1547 <Electronically signed by Sampson Orr> Cosigner Signature (if applicable): 02/25/23 2326 <Electronically signed by Elliot Hill DO> CC: SHANNAN VAZQUEZ DO ~ Signed [facility] Work Phone: [phone]) 247-868409-17-2023 Progress note Author Valentine Urbina [facility] February 25, 2023 6:28pm Note Date/Time February 25, 2023 6:01pm [facility] Medical Records Department [address] [place] [address] Progress Note - Hospitalist 02/25/23 1801 MR#: [id number] Acct: [id number] Name: KATIE ROBB Rep #:[id number] : 1990 33 From: Valentine Urbina MD PCP: SHANNAN VAZQUEZ DO Status:ADM I N [facility] Reason for Visit Reason for Visit: Post bleeding Subjective Subjective Patient is a 33-year-old female with history of hypothyroidism in withunremarkable vaginal 3 weeks ago who presented to [facility] 02/25/2023 due to vaginal bleeding. She had been having some bleeding for the past 4 days but the past 24 hours bleeding increased significantly. Shewas found to have retained products of conception and was taken to the OR for D&C, in the OR she had significant bleeding and had D&C performed with balloon in place which did tamponade but had estimated blood loss of 1400 cc. Initiallyhad hemoglobin of 13.6 and on recheck was 9.4 and initial fibrinogen of 175 withrepeat of 81. Due to concerns for DIC patient transferred to the ICU by her OB and hospitalist consulted. Patient seen at bedside, not having further active bleeding with balloon in place, has 1 unit of FFP and a unit of blood to be given and was placed on Methergine. She reports she occasionally gets headachesand does not feel like her contacts are as useful since she gave but nothing acutely changed today, had not been having increased abdominal pain or cramping until today, no diarrhea, no changes in urination, ROS otherwise negative. Objective Data Objective Data Vital Signs: Vital Signs Temp Pulse Resp BP Pulse Ox O2 Del Method 99.1 F 91 18 96/61 97 Room Air 02/25/23 15:50 02/25/23 15:50 02/25/23 15:50 02/25/23 15:50 02/25/23 15:50 02/25/23 15:50 Oxygen Delivery Method Room Air Weight: 85.6 kg Body Mass Index (BMI) 29.5 Intake & Output: Intake and Output for Last 24 Hours 02/23/23 02/24/23 02/25/23 23:59 23:59 23:59 Intake Total 1893.4 / 1893.4 Output Total 350 / 350 Balance 1543.4 / 1543.4 Lab / Micro Data 02/25/23 13:40 02/25/23 13:40 Labs: Laboratory Results - last 24 hr 02/25/23 07:05: WBC 10.3, RBC 4.02 L, Hgb 13.6, Hct 38.0, MCV 94.5, MCH 33.8 H, MCHC 35.8, RDW Std Deviation 47.0 H, RDW Coeff of Evens 13.5, Plt Count 273, MPV 11.8, Immature Gran % (Auto) 0.400, Neut % (Auto) 45.9 L, Lymph % (Auto) 34.3, [place] % (Auto) 7.4, Eos % (Auto) 10.9 H, Baso % (Auto) 1.1 H, Absolute Neuts (auto) 4.7, Absolute Lymphs (auto) 3.53, Nucleated RBC % 0, PT 13.5, INR 1.0, APTT 32.3, Sodium 140, Potassium 3.8, Chloride 107, Carbon Dioxide 27.0, Anion Gap 6, BUN 13, Creatinine 1.14 H, Estim Creat Clear Calc 69.53, Est GFR (MDRD) Af Amer 71, Est GFR (MDRD) Non-Af 59 L, BUN/Creatinine Ratio 11.4, Glucose 97, Calcium 9.3, Blood Type Cancelled, Antibody Screen Cancelled 02/25/23 07:27: Blood Type Cancelled, Antibody Screen Cancelled, Crossmatch See Detail 02/25/23 13:40: WBC 14.2 H, RBC 2.77 L, Hgb 9.4 L, Hct 26.9 L, MCV 97.1, MCH 33.9 H, MCHC 34.9, RDW Std Deviation 49.2 H, RDW Coeff of Evens 13.8, Plt Count 313, MPV 12.0, PT 15.9 H, INR 1.3, APTT 28.3, Fibrinogen 175 L, Sodium 143, Potassium 4.4, Chloride 116 H, Carbon Dioxide 24.0, Anion Gap 3 L, BUN 10, Creatinine 1.05 H, Estim Creat Clear Calc 75.49, Est GFR (MDRD) Af Amer 79, Est GFR (MDRD) Non-Af 65, BUN/Creatinine Ratio 9.5 L, Glucose 123 H, Calcium 7.3 L, Blood Type O POSITIVE, Antibody Screen NEGATIVE, Crossmatch See Detail 02/25/23 13:40: Crossmatch See Detail 02/25/23 14:20: WBC Cancelled, Corrected WBC Cancelled, RBC Cancelled, Hgb Cancelled, Hct Cancelled, MCV Cancelled, MCH Cancelled, MCHC Cancelled, RDW Std Deviation Cancelled, RDW Coeff of Evens Cancelled, Plt Count Cancelled, MPV Cancelled, Immature Gran % (Auto) Cancelled, Neut % (Auto) Cancelled, Lymph % (Auto) Cancelled, [place] % (Auto) Cancelled, Eos % (Auto) Cancelled, Baso % (Auto)Cancelled, Absolute Neuts (auto) Cancelled, Absolute Lymphs (auto) Cancelled, Total Counted Cancelled, Neutrophils % (Manual) Cancelled, Band Neutrophils % Cancelled, Lymphocytes % (Manual) Cancelled, Monocytes % (Manual) Cancelled, Eosinophils % (Manual) Cancelled, Basophils % (Manual) Cancelled, Metamyelocytes% Cancelled, Myelocytes % Cancelled, Promyelocytes % Cancelled, Blast Cells % Cancelled, Plasma Cell % (Manual) Cancelled, Other Cells % Cancelled, Nucleated RBC % Cancelled, Nucleated RBCs/100 WBC Cancelled, Differential Comment Cancelled, Diff Path Review Cancelled, Hypersegmented Neuts Cancelled, Atypical Lymphocytes Cancelled, Reactive Lymphocytes Cancelled, Smudge Cells Cancelled, Toxic Granulation Cancelled, Toxic Vacuolation Cancelled, Dohle Bodies Cancelled, Scotty Rods Cancelled, Platelet Estimate Cancelled, Plt Morphology Comment Cancelled, RBC Morphology Cancelled 02/25/23 14:20: RBC Morphology Cancelled, Polychromasia Cancelled, HypochromasiaCancelled, Poikilocytosis Cancelled, Basophilic Stippling Cancelled, Anisocytosis Cancelled, Microcytosis Cancelled, Macrocytosis Cancelled, Spherocytes Cancelled, Sickle Cells Cancelled, Target Cells Cancelled, Tear DropCells Cancelled, Ovalocytes Cancelled, Stomatocytes Cancelled, Lnyn-Ventura Bodies Cancelled, Pierson Cells Cancelled, Bite Cells Cancelled, Crenated Cell Cancelled, Acanthocytes (Spur) Cancelled, Rouleaux Cancelled, Schistocytes Cancelled 02/25/23 16:17: PT 16.8 H, INR 1.4, APTT 24.5, Fibrinogen 81 L* Radiography Diagnostic Testing: Radiology Impression Transvaginal US 02/25/23 07:16 IMPRESSION: Heterogeneous endometrium with cystic regions and prominent vascularity suggesting retained products of conception. Electronically Signed: Arthur Vazquez MD at 10:08 EDT , Physical Exam Narrative General: Alert, oriented, appears upset HEENT: Atraumatic, normocephalic Eyes: Anicteric, normal conjunctiva, extraocular movements grossly intact, appears to have some slight puffiness around eyes Neck: Supple Respiratory: Clear to auscultation bilaterally, normal respiratory effort Cardiovascular: Regular rate and rhythm GI: Soft, nontender, nondistended Extremities: No edema Musculoskeletal: Moving all extremities Neuro: No overt focal neurological deficits Skin: No rashes appreciated Psych: Appears anxious Assessment & Plan Assessment/Plan (1) hemorrhage: (2) Hypothyroid: (3) Retained products of conception: PLAN: Plan #Acute blood loss anemia secondary to hemorrhage with concern for acute DIC -Patient status post D&C and balloon placement with improving bleeding, patient already received methergine and tranexamic acid as well -Patient with significant bleeding and hemoglobin dropped from 13-9 and 1 unit packed red blood cells ordered as this is anticipated to follow further, CBC to be trended -Additionally patient had dropping fibrinogen and increased PT, agree with 1 unit FFP ordered and labs to continue to be monitored -Platelets had to drop but repeat CBC pending, will add D-dimer to next labs andwill also add liver panel -Patient with another unit of blood on hold, continue to give crystalloid, continue to monitor urine output #Hypothyroidism -Continue Synthroid #DVT ppx: SCDs Valentine Urbina MD Time spent in the patient's overall evaluation,decision-making process, review of diagnostic data, adjustment of management, discussion with other providers, nursing nursing and ancillary staff involved in patient's care documentation, 45minutes Charges/Coding Visit Charges Inpatient E&M: 75507 Subs Hosp L2 02/25/23 1828 <Electronically signed by Valentine Urbina MD> Cosigner Signature (if applicable): CC: ~ Signed [facility] Work Phone: 1(787) 415-525609-17-2023 Progress note Author Nat Gomez [facility] February 25, 2023 5:25pm Note Date/Time February 25, 2023 5:25pm [facility] Medical Records Department [address] [place] [address] Progress Note 02/25/231722 MR#: [id number] Acct: [id number] Name: KATIE ROBB Rep #:[id number] : 1990 33 From: Nat crum MD PCP: SHANNAN VAZQUEZ, DO Status:ADM I N [facility] Note reviewed labs- patient is in DIC, decreasing fibrinogen and increasing PT, unable to get cbc- will transfuse one unit PRBC and FFP now, transfer to ICU. bps 90s over 50s HR 80s-90s, urine output 275 over the last 4 hours, no clinicalvaginal bleeding or out of the bakri balloon, IV site clear. urine clear. 02/25/23 1725 <Electronically signed by Nat Gomez MD> Nat Gomez MD Cosigner Signature (if applicable): CC: ~ Signed [facility] Work Phone: 1(998) 908-384109-17-2023 Progress note Author [facility] February 25, 2023 3:56pm Note Date/Time February 25, 2023 3:57pm [facility] Medical Records Department [address] [facility] [address] [place] [address] Progress Note 02/25/23 1554 MR#: [id number] Acct: [id number] Name: KATIE ROBB Rep #:[id number] : 1990 33 From: Nat crum MD PCP: SHANNAN VAZQUEZ, DO Status:ADM I N Location: [place] [address] Progress Note bleeding minimal, bps 105/68 HR 80s, reviewed labs borderline DIC but clinicallystable recommend repeat lab panel now. reviewed with nursing staff. continue IVFs 02/25/23 1556 <Electronically signed by Nat Gomez MD> Nat Gomez MD Cosigner Signature (if applicable): CC: ~ Signed [facility] Work Phone: [phone]-2027 History and physical note [facility] February 25, 2023 11:01am Note Date/Time February 25, 2023 11:01am [facility] Medical Records Department [address] [place] [address] History & Physical Exam 02/25/23 1059 MR#: [id number] Acct: [id number] Name: KATIE ROBB Rep #:[id number] : 1990 33 From: Nat crum MD PCP: SHANNAN VAZQUEZ DO Status:REG S DC Location: [place] [address]- HPI - General HPI Narrative KATIE ROBB, is a 33 F who presents with increasing vaginal bleeding, 3 weeks . she had a resolution of bleeding and then started back up again thelast few days, denies any fevers, passed some membranous tissue. [facility] Medical History Conceived by in vitro fertilization COVID-19 Endometriosis Infertility Low-lying placenta Raynauds syndrome Recurrent bacterial infection Vaginal delivery Home Medications multivitamin no.47-iron fum 27 mg-folate no.1 1 mg-dha 300 mg capsule (PNV-DHA)1 cap PO DAILY 07/06/22 [History Last Taken Unknown] levothyroxine 25 mcg tablet 25 mcg PO DAILY #90 tabs 09/26/22 [Rx Last Taken Unknown] albuterol sulfate 90 mcg/actuation aerosol inhaler 2 puff inhalation Q6H PRN shortness of breath or wheezing 02/25/23 [History Last Taken Unknown] Allergy/AdvReac Type Severity Reaction Status Date / Time No Known Allergies Allergy Verified 02/25/23 06:57 Family History Father Lung cancer, Onset Age: 42 Mother Lymphoma, Onset Age: 54 Surgical History (Updated 02/01/23 @ 19:40 by Rosemarie Peacock) History of surgery Hx of laparoscopy Hx of tonsillectomy Hx of wisdom tooth extraction Social History adopted: No household members: spouse housing: house current occupational status: employed 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 current occupational exposures/hazards: No pets and animals: Yes pets and animals: dog(s) history of recent travel: No sexually active: Yes Smoking Status: Never smoker alcohol intake: never substance use type: does not use well-balanced diet: daily or most days caffeine: No eating out: rarely or never during the past year weight has: increased > 10 lbs what type of physical activity do you participate in: walking, yoga and weight training frequency: 3-4 times per week duration: 30-45 minutes/day diego/worship: None seatbelt use: always do you feel safe at home: Yes additional social history: - Yayo ROS Constitutional Constitutional: Reports systems reviewed and no addt'l complaints, except as documented; Denies as per HPI, change in weight, fatigue, fever(s), malaise, weakness or other Eyes Eyes: Reports systems reviewed and no addt'l complaints, except as documented; Denies as per HPI, change in vision or other ENT HEENT: Reports systems reviewed and no addt'l complaints, except as documented Respiratory/Chest Respiratory/Chest: Reports systems reviewed and no addt'l complaints, except as documented Gastrointestinal Gastrointestinal: Reports systems reviewed and no addt'l complaints, except as documented and as per HPI Genitourinary Genitourinary: Reports as per HPI Musculoskeletal Musculoskeletal: Reports systems reviewed and no addt'l complaints, except as documented Neurologic Neurologic: Reports systems reviewed and no addt'l complaints, except as documented Psychiatric Psychiatric: Reports systems reviewed and no addt'l complaints, except as documented Endocrine Endocrinology: Reports systems reviewed and no addt'l complaints, except as documented Hematologic/Lymphatic Hematologic/Lymphatic: Reports systems reviewed and no addt'l complaints, exceptas documented Vital Signs Vital Signs Vital Signs: 02/25/23 06:57 02/25/23 08:13 02/25/23 08:56 Temperature 97.8 F Temperature Source Temporal Pulse Rate 87 69 77 Respiratory Rate 16 14 Blood Pressure 127/83 H 128/82 H 121/69 H Blood Pressure Mean 97 97 86 Blood Pressure Source Blood Pressure Position Pulse Ox 100 98 Oxygen Delivery Method Room Air 02/25/23 09:41 02/25/23 10:34 Temperature Temperature Source Pulse Rate 74 90 Respiratory Rate 16 18 Blood Pressure 124/110 H 117/84 H Blood Pressure Mean 114 95 Blood Pressure Source Monitor Blood Pressure Position Sitting Pulse Ox 98 98 Oxygen Delivery Method Room Air Weight Weight: 188 lb 11.451 oz Body Mass Index (BMI) 29.5 Physical Exam Const alert, oriented x3 and no apparent distress HEENT normocephalic Head and Scalp: atraumatic Eyes EOMs intact bilaterally and conjunctivae normal Neck full ROM, no lymphadenopathy, supple and thyroid normal General: trachea midline Lymph Lymphatic: no lymphadenopathy noted Resp normal respiratory effort, no retractions, no use of accessory muscles and clearto auscultation bilaterally Cardio regular rhythm GI normal to inspection, nondistended, normoactive bowel sounds, soft to palpation,non-distended and no masses Inspection: Negative for abdominal distention Back/Spine no CVA tenderness Extremity normal to inspection Skin no rashes or lesions noted Neuro moves all extremities and deep tendon reflexes 2+ bilaterally Psych mental status grossly normal Results Lab / Micro Data 02/25/23 07:05 02/25/23 07:05 Labs: Laboratory Results - last 24 hr 02/25/23 07:05: WBC 10.3, RBC 4.02 L, Hgb 13.6, Hct 38.0, MCV 94.5, MCH 33.8 H, MCHC 35.8, RDW Std Deviation 47.0 H, RDW Coeff of Evens 13.5, Plt Count 273, MPV 11.8, Immature Gran % (Auto) 0.400, Neut % (Auto) 45.9 L, Lymph % (Auto) 34.3, [place] % (Auto) 7.4, Eos % (Auto) 10.9 H, Baso % (Auto) 1.1 H, Absolute Neuts (auto) 4.7, Absolute Lymphs (auto) 3.53, Nucleated RBC % 0, PT 13.5, INR 1.0, APTT 32.3, Sodium 140, Potassium 3.8, Chloride 107, Carbon Dioxide 27.0, Anion Gap 6, BUN 13, Creatinine 1.14 H, Estim Creat Clear Calc 69.53, Est GFR (MDRD) Af Amer 71, Est GFR (MDRD) Non-Af 59 L, BUN/Creatinine Ratio 11.4, Glucose 97, Calcium 9.3, Blood Type Cancelled, Antibody Screen Cancelled 02/25/23 07:27: Blood Type O POSITIVE, Antibody Screen NEGATIVE Radiology Impression Transvaginal US 02/25/23 07:16 IMPRESSION: Heterogeneous endometrium with cystic regions and prominent vascularity suggesting retained products of conception. Electronically Signed: Arthur Vazquez MD at 10:08 EDT , Assessment & Plan Assessment/Plan (1) Retained products of conception: PLAN: Plan After discussing the patient's diagnosis and treatment plan options, patient wishes to proceed with surgical management. I have discussed with the patient the risks, benefits, and alternatives of the procedure which include but are notlimited to risks of anesthesia, bleeding, infection, possible damage to bowel, bladder, or surrounding vasculature which could lead to additional surgery to evaluate any complications. Patient agrees to procedure and wishes to proceed. ACOG/uptodate references given for additional information regarding procedure. 02/25/23 1101 <Electronically signed by Nat Gomez MD> Cosigner Signature (if applicable): CC: SHANNAN VAZQUEZ DO; Dr. Nat Gomez MD~ Signed [facility] Work Phone: [phone]) 320-222809-17-2023 Procedure [facility] 10-25-2021 NoteHNO ID: [id number] Author: Elie Guevara PA-C Service: ? Author Type: Physician [place]ter Type: Progress Notes Filed: 10/25/2021 6:25 PM Note Text: 10/25/2021 Patient presents with: Diarrhea: x5 days SUBJECTIVE: This is a 31 year old that is here today for diarrhea x 10 days. No n/v. Denies fever, chills, sweats, or fatigue. No abdominal pain, back pain, heart burn symptoms, or UTI symptoms. She has no personal or FH of IBS, crohns. Colitis, or other intestinal disorders. No recent outside of [facility] travel, new foods/restaurants, or camping/out door eating. It started while at a wedding in [place]. No camping or well-water use. 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 No recent antibiotics. No sinus symptoms, cough, ZHANG, or rash. Patient denies wheezing, shortness of breath, increased WOB, or chest pain. No other URI symptoms. No other sick symptoms. Pain on scale of 0-10 with 0 being no pain and 10 being greatest pain: 0 Nothing makes the symptoms better. Nothing makes them worse. Self-treatment:. none The severity is mild and the symptoms are not improving. The patient did not have a similar problem in the last 3 months. The patient did not take any antibiotics in the last 3 months. Barriers to learning: none. Reviewed meds, OTCs, herbals or supplements. Reviewed allergies, medications, social history, and past medical history. PAST MEDICAL HISTORY Diagnosis Date - Autoimmune disorder (HCC) Reynaud's , +PREETHI - Broken bones right great toe, right wrist, nose - NEGATIVE MEDICAL HISTORY ALLERGIES Seasonal Allergies MEDICATIONS Current Outpatient Medications Medication Sig - acetaminophen (TYLENOL) 325 mg tablet Take 2 tablets by mouth every 6 hours as needed for pain. - ibuprofen (MOTRIN) 600 mg tablet Take 1 tablet by mouth every 6 hours. - ondansetron (ZOFRAN) 4 mg tablet Take 1 tablet by mouth every 8 hours as needed for nausea/vomiting. - loratadine (CLARITIN) 10 mg tablet Take 1 tablet by mouth once daily as needed for Cold/Allergy Symptoms. No current facility-administered medications for this visit. Medications and allergies reviewed by this provider. SOCIAL HISTORY Social History Tobacco Use - Smoking status: Never Smoker - Smokeless tobacco: Never Used Vaping Use - Vaping Use: Never used Substance Use Topics - Alcohol use: Yes Comment: occ - Drug use: No REVIEW OF SYSTEMS Review of Systems ROS: constitutional-neg, HENT-neg, Eyes- neg, heart-neg, respiratory-neg, GI-diarrhea, -neg, skin-neg, lymph-neg, MSK- neg, All systems neg except as noted above in HPI. OBJECTIVE: BP 106/70 Pulse 66 Temp 36.2 ?C (97.2 ?F) (Temporal) Resp 12 Wt 74.3 kg (163 lb 12.8 oz) LMP 10/25/2021 (Exact Date) SpO2 100% BMI 25.65 kg/m? . Vital signs reviewed by this provider. Physical Exam AAOx3, no acute distress, patient is pleasant, well groomed, dressed appropriately. General: WD, WN, NAD, alert. HEENT: No facial erythema or swelling. Eyes: PERRL. EOMI. No erythema or discharge. Abdomen: Hyperactive BS x 4 quads, soft, nondistended, NT, Newell's sign- negative, McBurney's point- negative, Psoas and Obturator signs- negative, no masses or organomegaly, no rebound tenderness or guarding. No Manolo or Engel Dillard's sign. No CVA tenderness to percussion. Skin: no rash noted, cap refill <3sec, normal skin turgor noted. ASSESSMENT/PLAN: 1. 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 DIFFICILE PCR - ENTERIC BACTERIAL PANEL BY PCR - CRYPTOSPORIDIUM AND GIARDIA ANTIGENS BY EIA - Once stool studies samples are given, if she wants to try a course of antibiotics for travelers diarrhea we could try (ie Cipro or Azithromycin). She will call back. - Declined GI consult at this time - Keep PCP appt in December Discussed likely viral nature Encourage fluids, rest. [place] foods- Bread, crackers, rice No spicy, caffeine, dairy Constant sips- water, Gatorade, Francisca Abbi, Popsicles Tylenol and Motrin for pain and fever. If you have a fever rotate between the Tylenol and Motrin every 3 hours. If you cannot drink or keep down fluids- go to ER for dehydration. If you have worsening abdominal pain- go to ER Call PCP if sx worsen or no better. If symptoms worsen, or new symptoms develop go to ER. If you have worsening of breathing or breathing changes- go to ER. If you have persistent fever unrelieved by Tylenol/Motrin- go to the ER. Discussed all red flag symptoms and reasons to go to ER No further questions. Follow up as needed. Barriers to learning: none. The patient verbalizes understanding and is in agreement with plan of care. Elie Guevara PA-C Medical Decision Making: Problems: Low: Acute, uncomplicated illness or injury Data: Unique test(s) ordered: 3+ Risk: Low: Low risk from testing/kirstin (more content not included)...[facility]12-17-2021 NoteGyn Discharge Summary Patient Name: Katie Robb Patient : 1990 Primary Care Physician: Sonia Girard DO Admit Date: 05/26/2021 Attending Provider: Laurence Golden MD Principal Diagnosis: postoperative state, endometriosis Other Diagnosis: Postoperative state [Z98.890] Patient Active Problem List Diagnosis Endometriosis Chronic pelvic pain in female Endometriosis determined by laparoscopy Postoperative state Surgical Operations & Procedures: Laparoscopic resection of endometriosis, bilateral ovarian cystectomy, lysis of adhesions, ureterolysis Consultations: intraoperative consult to colorectal surgery for resection of perirectal nodule Pertinent Findings & Procedures: Katie Robb is a 31 y.o. female , admitted for postoperative care. She underwent Laparoscopic resection of endometriosis, bilateral ovarian cystectomy, lysis of adhesions, ureterolysis on 05/26/21. She met postoperative mile stones on 05/27/21. Drop in hgb from 13.1 to 10.5 but VSS and no concern for continued bleeding. Hospital course normal, discharged home 05/27/21. Follow up in 06/16/[address] Golden. Discharge instructions reviewed and questions answered. Course of patient: normal Discharge to: Home Wound Care: keep wound clean and dry Recommendations on Discharge: Medications: Medication List START taking these medications docusate sodium 100 MG capsule Commonly known as: COLACE Take 1 capsule by mouth 2 times daily oxyCODONE 5 MG immediate release tablet Commonly known as: Roxicodone Take 1 tablet by mouth every 6 hours as needed for Pain for up to 3 days. Intended supply: 3 days. Take lowest dose possible to manage pain simethicone 80 MG chewable tablet Commonly known as: MYLICON Take 1 tablet by mouth 4 times daily as needed for Flatulence CHANGE how you take these medications acetaminophen 500 MG tablet Commonly known as: TYLENOL Take 2 tablets by mouth every 6 hours What changed: medication strength See the new instructions. CONTINUE taking these medications Fish Oil 500 MG Caps ibuprofen 600 MG tablet Commonly known as: ADVIL;MOTRIN Take 1 tablet by mouth every 6 hours neomycin 500 MG tablet Commonly known as: MYCIFRADIN On the day prior to surgery take two tablets at 1:00pm; two tablets at 2:00pm; two tablets at 11:00pm norethindrone 5 MG tablet Commonly known as: Aygestin Take 1 tablet by mouth daily VITAMIN PO PROBIOTIC-10 PO tretinoin 0.025 % cream Commonly known as: RETIN-A VITAMIN B 12 PO VITAMIN D3 PO STOP taking these medications metroNIDAZOLE 500 MG tablet Commonly known as: Flagyl Where to Get Your Medications These medications were sent to [facility] [address] - [phone] - F [phone] [facility] [address] acetaminophen 500 MG tablet docusate sodium 100 MG capsule ibuprofen 600 MG tablet oxyCODONE 5 MG immediate release tablet simethicone 80 MG chewable tablet Activity: no heavy lifting for 3 weeks, no driving on narcotics Diet: regular diet Follow up: 06/16/[address] Cesta Condition on discharge: good and stable Discharge Date: 05/27/21 Comments: Home care, Follow-up care, restrictions reviewed. Arthur Crawford Roosevelt, DO 05/27/2021, 2:08 PM I reviewed and agree with the care provided by the resident/CNM during the visit including the patient's medical history, the resident's findings in the physical exam, patient's diagnosis and treatment plan. [facility]10-27-2021 Hospital Discharge instructions* Instructions* Adriana Friend RN - 04/06/2021 Colonoscopy: What to expect at home ACTIVITY: DO NOT DRIVE, OPERATE MACHINERY, OR DRINK ANY ALCOHOL TODAY. Avoid making critical decisions, signing legal documents, or performing any activity that requires alertness for the rest of the day. You may be bloated or have gas pains since air was introduced into the colon for the procedure. Youmay need to pass the gas throughout the day. You may experience a small amount of rectal bleeding; this can be normal after your colonoscopy. Notify your physician if the bleeding is enough to saturate your clothes. Rest the remainder of the day. You may resume normal activity tomorrow. You may return to work tomorrow. DIET: You may resume a normal diet unless notified or recommended by your physician. You may be eager to eat a large meal after fasting, but it is a good idea to start with light mealsand ease into solid foods the first day. (*) If your stomach is upset, try clear liquids and bland, low-fat foods like plain toast or rice. Drink plenty of fluids for the first 24 hours (unless your physician states otherwise). MEDICATION: Resume your normal home medications unless notified or recommended by your physician. If you take blood thinners (such as Coumadin, Eliquis, Plavix, Aspirin, etc.) or anti-inflammatory medications (Advil, Motrin, Aleve, etc.), ask your physician when you may resume these medications. FOLLOW-UP APPOINTMENT: Follow up with or call your physician as needed. When to call for help: Call your doctor IMMEDIATELY or seek medical care if you experience: Severe pain or vomiting A large amount (filling the toilet) of maroon, bloody stools or tar-like stools Your belly is swollen and firm with severe pain A fever greater than 101 degrees Redness or swelling of arm from the IV site for more than 48 hours Sudden onset of chest pain or shortness of breath If you become extremely dizzy or pass out (lose consciousness) IF YOU ARE UNABLE TO REACH YOUR PHYSICIAN GO TO NEAREST EMERGENCY DEPARTMENT documented in this [facility] Work Phone: [phone]) 687-855709-30-2021 NoteHNO ID: [id number] Author: Ronni Boston PA-C Service: ? Author Type: Physician Fish Salter Type: Progress Notes Filed: 03/10/2021 4:28 PM Note Text: Will close out of the actionable findings registry. Actionable Findings follow up status: Complete Ronni Boston PA-C March 10, 2021 4:28 [facility]09-28-2021 NoteHNO ID: [id number] Author: Ronni Boston PA-C Service: ? Author Type: Physician Fish Salter Type: Progress Notes Filed: 03/10/2021 4:28 PM Note Text: Actionable Finding Review. This patient showed up on the actionable finding registry with an abnormal pelvic ultrasound 12/16/2020 and I am tasked to assist with this for the comanche. Report: 5-6 cm complex ovarian lesions bilaterally. Appearance could reflect endometriomas. Complex cystic lesions cannot be excluded. Possibility of abscesses in the clinical setting of pelvic inflammatory disease in the differential. ?Clinical correlation is needed. Moderate complex pelvic free fluid reflecting either hemorrhagic or proteinaceous ascites A follow-up pelvic ultrasound in 6-12 weeks is recommended for the above Findings. Repeat pelvic ultrasound in 6-12 weeks was recommended and I don't see this done. If you agree this is needed, could you/your office please address? If you feel through shared medical decision making this is / is not needed, please let us know. If / when you feel this is seen to completion, please let me know and I will close this out of the registry. Thank you. Ronni Boston PA-C March 08, 2021 3:19 [facility]09-28-2021 NotePatient Outreach (URGDIS) KATIE ROBB ([id number]) 1990 F Date Time Provider Department 03/08/21 RONNI BOSTON During your visit today, we recorded the following information about you: Ronni Boston PA-C 03/10/2021 4:28 PM Signed Actionable Finding Review. This patient showed up on the actionable finding registry with an abnormal pelvic ultrasound 12/16/2020 and I am tasked to assist with this for the comanche. Report: 5-6 cm complex ovarian lesions bilaterally. Appearance could reflect endometriomas. Complex cystic lesions cannot be excluded. Possibility of abscesses in the clinical setting of pelvic inflammatory disease in the differential. ?Clinical correlation is needed. Moderate complex pelvic free fluid reflecting either hemorrhagic or proteinaceous ascites A follow-up pelvic ultrasound in 6-12 weeks is recommended for the above Findings. Repeat pelvic ultrasound in 6-12 weeks was recommended and I don't see this done. If you agree this is needed, could you/your office please address? If you feel through shared medical decision making this is / is not needed, please let us know. If / when you feel this is seen to completion, please let me know and I will close this out of the registry. Thank you. Ronni Boston PA-C March 08, 2021 3:19 PM Ronni Boston PA-C 03/10/2021 4:28 PM Signed Will close out of the actionable findings registry. Actionable Findings follow up status: Complete Ronni Boston PA-C March 10, 2021 4:28 PM Allergies As of Date: 03/08/2021 Noted Allergy Reaction SEASONAL ALLERGIES 03/06/2016 3 - Cough Comments: Typical hayfever symptoms Date Reviewed: 12/16/2020 Reviewed by: Erica Roa, ANA MARÍA - Fully Assessed Reason for Visit: Actionable Findings Follow Up [3985] Prescriptions as of 03/10/2021 - acetaminophen (TYLENOL) 325 mg tablet Take 2 tablets by mouth every 6 hours as needed for pain. - ibuprofen (MOTRIN) 600 mg tablet Take 1 tablet by mouth every 6 hours. - ondansetron (ZOFRAN) 4 mg tablet Take 1 tablet by mouth every 8 hours as needed for nausea/vomiting. - loratadine (CLARITIN) 10 mg tablet Take 1 tablet by mouth once daily as needed for Cold/Allergy Symptoms. Problem List As Of Date 03/08/2021 Noted Resolved Postcoital and contact bleeding [N93.0] 09/30/2017 12/17/2020 Abdominal pain [R10.9] 12/16/2020 Encounter Status:Closed by RONNI BOSTON on 03/10/21[facility] 12-17-2020 NoteHNO ID: [id number] Author: Patti Fair RN Service: Care Management Author Type: Registered Nurse Type: Care Mgt Progress Note Filed: 12/17/2020 9:43 AM Note Text: CARE MANAGEMENT PROGRESS NOTE SERVICE DATE: 12/17/2020 SERVICE TIME: 40 LOS: 1 day Needs Prior to Discharge: To Be Determined This patient has been screened for Care Management Transitional Planning Services. At this time, it does not appear this patient will require transition planning services. Should this change, and the patient require transition planning services during this admission, please call [phone]. Patti Fair RN December 17, 2020 9:43 AM SIGNATURE: Patti Fair RN PATIENT NAME: Katie Robb DATE: December 17, 2020 TIME: 9:43 AM PAGER/CONTACT #: [phone] NoteHNO ID: [id number] Author: Niya Henriquez DO Service: Obstetrics Author Type: Resident Type: Progress Notes Filed: 12/17/2020 5:44 AM Note Text: GYNECOLOGY PROGRESS NOTE SERVICE DATE: 12/17/2020 SERVICE TIME: 5:04 AM Subjective HISTORY OF THE PRESENT ILLNESS: Katie states she is felt better after the Toradol and was able to go to bed. She is still having some pain when moving around. She denies dizziness. Nausea improved with Zofran. She does have a headache which Motrin helped slightly. Objective PHYSICAL EXAM: BP 88/58 Pulse 76 Temp 36.7 ?C (98.1 ?F) (Oral) Resp 18 Ht 170.2 cm (5' 7) Wt 72.6 kg (160 lb) LMP 12/05/2020 (Exact Date) SpO2 98% BMI 25.06 kg/m? General: In no apparent distress. Cardiovascular: Regular rate and rhythm. Pulmonary: Lungs clear to all pérez. Abdomen: Soft, tender in lower quadrants, nondistended Current Facility-Administered Medications Medication Dose Route Frequency - ondansetron orally disintegrating 4 mg tab(s) (ZOFRAN ODT) 4 mg ORAL q 6 H PRN Or - ondansetron (PF) 4 mg injection (ZOFRAN) 4 mg INTRAVENOUS q 6 H PRN - ibuprofen 600 mg tab(s) (MOTRIN) 600 mg ORAL q 6 H - acetaminophen 650 mg tab(s) (TYLENOL) 650 mg ORAL q 6 H DATA: Diagnostic tests reviewed for today's visit: Most recent labs and imaging results. Assessment/Plan 30 year old female here for abdominal pain #Abdominal pain -Improved with Toradol -Continue scheduled Tylenol and Motrin now -WBC 15.25->11.77 -Hgb 14.0->12.6 -Rapid BV, Trich negative -GC/CT pending #Hypotension -BP of 88/58 -Patient asymptomatic and nontachycardic -Patient's BPs normally in 100s/60s -Continue to monitor -Encourage PO hydration SIGNATURE: Niya Henriquez DO PATIENT NAME: Katie Robb DATE: December 17, 2020 TIME: 5:04 AM PAGER: [phone] CUSTOMER CARE TEAM COACH Service Pager: For questions or concerns regarding: -Obstetric patients or consults Sun-Sun-, please page #[phone] -Gynecology patients or consults Sun-Sun-, please page #[phone] -Postoperative patients Sun-Sun 7A-, please directly page the resident caring for the patient After 5P and on holidays and weekends, please page #[phone] NoteHNO ID: [id number] Author: RT Gretchen(R) Service: Radiology Author Type: Adding Machine Mechanic Type: Progress Notes Filed: 12/16/2020 6:38 PM Note Text: Radiology Service Progress Note PATIENT NAME: Katie Robb DATE OF SERVICE: December 16, 2020 TIME: 6:38 PM PATIENT IDENTITY VERIFICATION COMPLETED USING TWO (2) IDENTIFIERS: Name and Date of confirmed by patient verbally. FALL SCREENING: Has the patient had 2 falls in the last year or 1 fall with injury or currently using an Ambulatory Assistive Device (Walker, Cane, Wheelchair, Crutches, etc.)? Emergency Room Patient: Screened in ED PATIENT GENDER DATA: Female. status: : No status: NO. PATIENT RELEVANT IMPLANT DATA REVIEWED: Not Applicable RADIOLOGY DEPARTMENT: Ultrasound PERIPHERAL IV DATA: Not applicable SIGNED BY: RT Gretchen(R) December 16, 2020 6:38 [facility] noteNo assessment information availableWSelect [facility] Work Phone: Evaluation note* Diagnosis Onset Date Resolution Status Conceived by in vitro fertilization acute Endometriosis acute acute Raynauds syndrome acute Supervision of high-risk [facility] Work Phone: Evaluation note* Diagnosis Onset Date Resolution Status Conceived by in vitro fertilization acute acute Supervision of high-risk acute Conceived by in vitro fertilization acute Hypothyroid acute acute Supervision of high-risk acute Acute bronchitis resolved Conceived by in vitro fertilization acute Hypothyroid acute acute Supervision of high-risk [facility] Work Phone: Evaluation note* Diagnosis Onset Date Resolution Status Conceived by in vitro fertilization acute Hypothyroid acute acute Supervision of high-risk acute Acute bronchitis resolved Conceived by in vitro fertilization acute Hypothyroid acute acute Supervision of high-risk acute Hypothyroid acute Conceived by in vitro fertilization acute Hypothyroid acute Low-lying placenta acute acute Supervision of high-risk acute Conceived by in vitro fertilization acute Hypothyroid acute Low-lying placenta acute Lymphadenopathy acute acute Supervision of high-risk acute Conceived by in vitro fertilization acute Groin pain acute Hypothyroid acute Low-lying placenta acute Lymphadenopathy acute acute Recurrent bacterial infection acute Supervision of high-risk [facility] Work Phone: Evaluation note* Diagnosis Onset Date Resolution Status Hypothyroid acute Conceived by in vitro fertilization acute Hypothyroid acute Low-lying placenta acute acute Supervision of high-risk acute Conceived by in vitro fertilization acute Hypothyroid acute Low-lying placenta acute Lymphadenopathy acute acute Supervision of high-risk acute Conceived by in vitro fertilization acute Groin pain acute Hypothyroid acute Low-lying placenta acute Lymphadenopathy acute acute Recurrent bacterial infection acute Supervision of high-risk acute Conceived by in vitro fertilization acute Groin pain acute Hypothyroid acute Low-lying placenta acute Lymphadenopathy acute acute Recurrent bacterial infection acute Supervision of high-risk acute Conceived by in vitro fertilization acute Groin pain acute Hypothyroid acute Low-lying placenta acute Lymphadenopathy acute acute Recurrent bacterial infection acute Supervision of high-risk acute Conceived by in vitro fertilization acute Groin pain acute Hypothyroid acute Low-lying placenta acute Lymphadenopathy acute acute Recurrent bacterial infection acute Supervision of high-risk acute [facility] Work Phone: Evaluation note* Diagnosis Onset Date Resolution Status Conceived by in vitro fertilization acute Hypothyroid acute Low-lying placenta acute acute Supervision of high-risk acute Conceived by in vitro fertilization acute Hypothyroid acute Low-lying placenta acute Lymphadenopathy acute acute Supervision of high-risk acute Conceived by in vitro fertilization acute Hypothyroid acute Low-lying placenta acute Lymphadenopathy acute acute Recurrent bacterial infection acute Supervision of high-risk acute Groin pain resolved Conceived by in vitro fertilization acute Hypothyroid acute Low-lying placenta acute Lymphadenopathy acute acute Recurrent bacterial infection acute Supervision of high-risk acute Groin pain resolved Conceived by in vitro fertilization acute Hypothyroid acute Low-lying placenta acute Lymphadenopathy acute acute Recurrent bacterial infection acute Supervision of high-risk acute Groin pain resolved Conceived by in vitro fertilization acute Hypothyroid acute Low-lying placenta acute Lymphadenopathy acute acute Recurrent bacterial infection acute Supervision of high-risk acute Groin pain resolved COVID-19 acute Conceived by in vitro fertilization acute COVID-19 acute Hypothyroid acute Low-lying placenta acute Lymphadenopathy acute acute Recurrent bacterial infection acute Supervision of high-risk acute [facility] Work Phone: Evaluation note* Diagnosis Onset Date Resolution Status Hypothyroid acute Groin pain resolved Lymphadenopathy resolved Supervision of high-risk resolved Hypothyroid acute Groin pain resolved Lymphadenopathy resolved Supervision of high-risk resolved Hypothyroid acute Groin pain resolved Lymphadenopathy resolved Supervision of high-risk resolved Hypothyroid acute Groin pain resolved Lymphadenopathy resolved Supervision of high-risk resolved COVID-19 resolved Hypothyroid acute COVID-19 resolved Lymphadenopathy resolved Supervision of high-risk resolved Hypothyroid acute COVID-19 resolved Lymphadenopathy resolved Supervision of high-risk resolved Hypothyroid acute COVID-19 resolved Encounter for induction of labor resolved Lymphadenopathy resolved Supervision of high-risk resolved hemorrhage acute Retained products of conception acute [facility] Work Phone: Evaluation note* Diagnosis Onset Date Resolution Status Hypothyroid acute Groin pain resolved Lymphadenopathy resolved Supervision of high-risk resolved Hypothyroid acute Groin pain resolved Lymphadenopathy resolved Supervision of high-risk resolved Hypothyroid acute Groin pain resolved Lymphadenopathy resolved Supervision of high-risk resolved Hypothyroid acute Groin pain resolved Lymphadenopathy resolved Supervision of high-risk resolved COVID-19 resolved Hypothyroid acute COVID-19 resolved Lymphadenopathy resolved Supervision of high-risk resolved Hypothyroid acute COVID-19 resolved Lymphadenopathy resolved Supervision of high-risk resolved Hypothyroid acute COVID-19 resolved Encounter for induction of labor resolved Lymphadenopathy resolved Supervision of high-risk resolved Acute postoperative anemia d ue to greater than expected blood loss acute DIC (disseminated intravascular coagulation) acute Hypothyroid acute hemorrhage acute Retained products of conception acute [facility] Work Phone: Evaluation note* Diagnosis Bronchospasm- Primary Acute bronchospasm Flu vaccine need [facility] Diagnosis Onset Date Resolution Status Acute postoperative anemia d ue to greater than expected blood loss acute DIC (disseminated intravascular coagulation) acute Hypothyroid acute hemorrhage acute Retained products of conception acute Routine Follow-Up noneactive [facility] Work Phone: History and physical note Author Nat Gomez [facility] February 25, 2023 11:01am Note Date/Time February 25, 2023 11:01am [facility] Medical Records Department [address] [place] [id number] History & Physical Exam 02/25/23 1059 MR#: [id number] Acct: [id number] Name: KATIE ROBB Rep #:[id number] : 1990 33 From: Nat crum MD PCP: SHANNAN VAZQUEZ, Status:REG S DC Location: [facility] HPI - General HPI Narrative KATIE ROBB, is a 33 F who presents with increasing vaginal bleeding, 3 weeks . she had a resolution of bleeding and then started back up again thelast few days, denies any fevers, passed some membranous tissue. [facility] Medical History Conceived by in vitro fertilization COVID-19 Endometriosis Infertility Low-lying placenta Raynauds syndrome Recurrent bacterial infection Vaginal delivery Home Medications multivitamin no.47-iron fum 27 mg-folate no.1 1 mg-dha 300 mg capsule (PNV-DHA)1 cap PO DAILY 07/06/22 [History Last Taken Unknown] levothyroxine 25 mcg tablet 25 mcg PO DAILY #90 tabs 09/26/22 [Rx Last Taken Unknown] albuterol sulfate 90 mcg/actuation aerosol inhaler 2 puff inhalation Q6H PRN shortness of breath or wheezing 02/25/23 [History Last Taken Unknown] Allergy/AdvReac Type Severity Reaction Status Date / Time No Known Allergies Allergy Verified 02/25/23 06:57 Family History Father Lung cancer, Onset Age: 42 Mother Lymphoma, Onset Age: 54 Surgical History (Updated 02/01/23 @ 19:40 by Rosemarie Peacock) History of surgery Hx of laparoscopy Hx of tonsillectomy Hx of wisdom tooth extraction Social History adopted: No household members: spouse housing: house current occupational status: employed 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 current occupational exposures/hazards: No pets and animals: Yes pets and animals: dog(s) history of recent travel: No sexually active: Yes Smoking Status: Never smoker alcohol intake: never substance use type: does not use well-balanced diet: daily or most days caffeine: No eating out: rarely or never during the past year weight has: increased > 10 lbs what type of physical activity do you participate in: walking, yoga and weight training frequency: 3-4 times per week duration: 30-45 minutes/day diego/worship: None seatbelt use: always do you feel safe at home: Yes additional social history: - [employer] Constitutional Constitutional: Reports systems reviewed and no addt'l complaints, except as documented; Denies as per HPI, change in weight, fatigue, fever(s), malaise, weakness or other Eyes Eyes: Reports systems reviewed and no addt'l complaints, except as documented; Denies as per HPI, change in vision or other ENT HEENT: Reports systems reviewed and no addt'l complaints, except as documented Respiratory/Chest Respiratory/Chest: Reports systems reviewed and no addt'l complaints, except as documented Gastrointestinal Gastrointestinal: Reports systems reviewed and no addt'l complaints, except as documented and as per HPI Genitourinary Genitourinary: Reports as per HPI Musculoskeletal Musculoskeletal: Reports systems reviewed and no addt'l complaints, except as documented Neurologic Neurologic: Reports systems reviewed and no addt'l complaints, except as documented Psychiatric Psychiatric: Reports systems reviewed and no addt'l complaints, except as documented Endocrine Endocrinology: Reports systems reviewed and no addt'l complaints, except as documented Hematologic/Lymphatic Hematologic/Lymphatic: Reports systems reviewed and no addt'l complaints, exceptas documented Vital Signs Vital Signs Vital Signs: 02/25/23 06:57 02/25/23 08:13 02/25/23 08:56 Temperature 97.8 F Temperature Source Temporal Pulse Rate 87 69 77 Respiratory Rate 16 14 Blood Pressure 127/83 H 128/82 H 121/69 H Blood Pressure Mean 97 97 86 Blood Pressure Source Blood Pressure Position Pulse Ox 100 98 Oxygen Delivery Method Room Air 02/25/23 09:41 02/25/23 10:34 Temperature Temperature Source Pulse Rate 74 90 Respiratory Rate 16 18 Blood Pressure 124/110 H 117/84 H Blood Pressure Mean 114 95 Blood Pressure Source Monitor Blood Pressure Position Sitting Pulse Ox 98 98 Oxygen Delivery Method Room Air Weight Weight: 188 lb 11.451 oz Body Mass Index (BMI) 29.5 Physical Exam Const alert, oriented x3 and no apparent distress HEENT normocephalic Head and Scalp: atraumatic Eyes EOMs intact bilaterally and conjunctivae normal Neck full ROM, no lymphadenopathy, supple and thyroid normal General: trachea midline Lymph Lymphatic: no lymphadenopathy noted Resp normal respiratory effort, no retractions, no use of accessory muscles and clearto auscultation bilaterally Cardio regular rhythm GI normal to inspection, nondistended, normoactive bowel sounds, soft to palpation,non-distended and no masses Inspection: Negative for abdominal distention Back/Spine no CVA tenderness Extremity normal to inspection Skin no rashes or lesions noted Neuro moves all extremities and deep tendon reflexes 2+ bilaterally Psych mental status grossly normal Results Lab / Micro Data 02/25/23 07:05 02/25/23 07:05 Labs: Laboratory Results - last 24 hr 02/25/23 07:05: WBC 10.3, RBC 4.02 L, Hgb 13.6, Hct 38.0, MCV 94.5, MCH 33.8 H, MCHC 35.8, RDW Std Deviation 47.0 H, RDW Coeff of Evens 13.5, Plt Count 273, MPV 11.8, Immature Gran % (Auto) 0.400, Neut % (Auto) 45.9 L, Lymph % (Auto) 34.3, [place] % (Auto) 7.4, Eos % (Auto) 10.9 H, Baso % (Auto) 1.1 H, Absolute Neuts (auto) 4.7, Absolute Lymphs (auto) 3.53, Nucleated RBC % 0, PT 13.5, INR 1.0, APTT 32.3, Sodium 140, Potassium 3.8, Chloride 107, Carbon Dioxide 27.0, Anion Gap 6, BUN 13, Creatinine 1.14 H, Estim Creat Clear Calc 69.53, Est GFR (MDRD) Af Amer 71, Est GFR (MDRD) Non-Af 59 L, BUN/Creatinine Ratio 11.4, Glucose 97, Calcium 9.3, Blood Type Cancelled, Antibody Screen Cancelled 02/25/23 07:27: Blood Type O POSITIVE, Antibody Screen NEGATIVE Radiology Impression Transvaginal US 02/25/23 07:16 IMPRESSION: Heterogeneous endometrium with cystic regions and prominent vascularity suggesting retained products of conception. Electronically Signed: Arthur Vazquez MD at 10:08 EDT Reading Location ID and State: [address] [place] [address] , Service support , Assessment & Plan Assessment/Plan (1) Retained products of conception: PLAN: Plan After discussing the patient's diagnosis and treatment plan options, patient wishes to proceed with surgical management. I have discussed with the patient the risks, benefits, and alternatives of the procedure which include but are notlimited to risks of anesthesia, bleeding, infection, possible damage to bowel, bladder, or surrounding vasculature which could lead to additional surgery to evaluate any complications. Patient agrees to procedure and wishes to proceed. ACOG/uptodate references given for additional information regarding procedure. 02/25/23 1101 <Electronically signed by Nat Gomez MD> Cosigner Signature (if applicable): CC: SHANNAN VAZQUEZ DO; Dr. Nat Gomez MD~ Signed [facility] Work Phone: Instructions* Name Dates Details Instructions not documented -[facility] Work Phone: Reason for referral (narrative)No reason for referral information availableWSelect Medical [facility] Work Phone: Summary Purpose Family History No Family History Records FoundUnknown Family Member Name Dates Details Family history of lung cance r(V16.1, Z80.1) Comments:Maternal Relatives Status:Active Family history of rheumatoid arthritis(V17.7, Z82.61) Comments:Maternal Relatives Status:Active Family history of osteoarthr itis(V17.89, Z82.69) Comments:Maternal Relatives Status:Active Grandmother Name Dates Details Family history of osteoarthr itis(V17.89, Z82.69) Status:Active Grandfather Name Dates Details Family history of lung cance r(V16.1, Z80.1) Status:Active Mother Name Dates Details Family history of hypothyroi dism(V18.19, Z83.49) Status:Active Father Name Dates Details Family history of lung cance r(V16.1, Z80.1) Status:Active Family history of (7 99.9, R99) Status:Active Brother Name Dates Details Family history of eczema(V19 .4, Z84.0) Status:Active Family history of lactose in tolerance(V19.8, Z83.49) Status:Active Relationship Condition Age at Onset Recorded Date/T sheng father Malignant neoplasm of lung 42 mother Lymphoma 54 Relationship Condition Age at Onset Recorded Date/T sheng father Malignant neoplasm of lung 42 mother Lymphoma 54 Disorder of thyroid Unknown Advance Directives No Advanced Directives Records FoundLatest Code Status on File Code Status Date Activated Date Inactivated Comments Full Code 04/06/2021 12:43 PM Latest Code Status on File Code Status Date Activated Date Inactivated Comments Full Code 05/26/2021 7:06 PM 05/27/2021 6:58 PM Full Code 05/26/2021 9:20 AM 05/26/2021 7:01 PM Full Code 04/06/2021 12:43 PM 04/06/2021 5:06 PM Advance Directive Response Recorded Date/ Time Living Will No February 25, 2023 6:57am Power of Vp Clinical Research No February 6:57am Advance Directive Response Recorded Date/ Time Living Will No February 25, 2023 5:57am Power of Vp Clinical Research No February 5:57am Advance Directive Response Recorded Date/ Time Do you have a Healthcare Power of Vp Clinical Research? 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 Chief Complaint NOB LMP 05/03 E ORDERS ALSO Reason for Visit Conceived by in vitr o fertilization Endometriosis Raynauds syndrome Supervision of high-risk Chief Complaint NOB LMP 05/03 E ORDERS ALSO 14 WK OB cough x 2 weeks, sore throat, runny nose 17 WK OB EORDER- ADD ADDT ORDER Reason for Visit Conceived by in vitr o fertilization Supervision of high-risk Conceived by in vitro fertilization Hypothyroid Supervision of high-risk Acute bronchitis Conceived by in vitro fertilization Hypothyroid Supervision of high-risk Chief Complaint 14 WK OB cough x 2 weeks, sore throat, runny nose 17 WK OB EORDER- ADD ADDT ORDER HIGH RISK Hypothyroidism 21 WK OB 25 wk est ob EORDER- URINE LOW LYING PLACENTA 30 WK OB E-ORDER LWR ABD PAIN Reason for Visit Conceived by in vitr o fertilization Hypothyroid Supervision of high-risk Acute bronchitis Conceived by in vitro fertilization Hypothyroid Supervision of high-risk Hypothyroid Conceived by in vitro fertilization Hypothyroid Low-lying placenta Supervision of high-risk Conceived by in vitro fertilization Hypothyroid Low-lying placenta Lymphadenopathy Supervision of high-risk Conceived by in vitro fertilization Groin pain Hypothyroid Low-lying placenta Lymphadenopathy Recurrent bacterial infection Supervision of high-risk Chief Complaint HIGH RISK Hypothyroidism 21 WK OB 25 wk est ob EORDER- URINE LOW LYING PLACENTA 30 WK OB E-ORDER LWR ABD PAIN 32 WK OB 34 WK OB 36 WK OB Reason for Visit Hypothyroid Conceived by in vitro fertilization Hypothyroid Low-lying placenta Supervision of high-risk Conceived by in vitro fertilization Hypothyroid Low-lying placenta Lymphadenopathy Supervision of high-risk Conceived by in vitro fertilization Groin pain Hypothyroid Low-lying placenta Lymphadenopathy Recurrent bacterial infection Supervision of high-risk Conceived by in vitro fertilization Groin pain Hypothyroid Low-lying placenta Lymphadenopathy Recurrent bacterial infection Supervision of high-risk Conceived by in vitro fertilization Groin pain Hypothyroid Low-lying placenta Lymphadenopathy Recurrent bacterial infection Supervision of high-risk Conceived by in vitro fertilization Groin pain Hypothyroid Low-lying placenta Lymphadenopathy Recurrent bacterial infection Supervision of high-risk Chief Complaint 21 WK OB 25 wk est ob EORDER- URINE LOW LYING PLACENTA 30 WK OB E-ORDER LWR ABD PAIN 32 WK OB 34 WK OB 36 WK OB FEVER, ACHES, COUGH, SORE THROAT COVID TEST/WCH EMP Other specified health status 38 WK OB Reason for Visit Conceived by in vitr o fertilization Hypothyroid Low-lying placenta Supervision of high-risk Conceived by in vitro fertilization Hypothyroid Low-lying placenta Lymphadenopathy Supervision of high-risk Conceived by in vitro fertilization Hypothyroid Low-lying placenta Lymphadenopathy Recurrent bacterial infection Supervision of high-risk Groin pain Conceived by in vitro fertilization Hypothyroid Low-lying placenta Lymphadenopathy Recurrent bacterial infection Supervision of high-risk Groin pain Conceived by in vitro fertilization Hypothyroid Low-lying placenta Lymphadenopathy Recurrent bacterial infection Supervision of high-risk Groin pain Conceived by in vitro fertilization Hypothyroid Low-lying placenta Lymphadenopathy Recurrent bacterial infection Supervision of high-risk Groin pain COVID-19 Conceived by in vitro fertilization COVID-19 Hypothyroid Low-lying placenta Lymphadenopathy Recurrent bacterial infection Supervision of high-risk Chief Complaint LOW LYING PLACENTA 30 WK OB E-ORDER LWR ABD PAIN 32 WK OB 34 WK OB 36 WK OB FEVER, ACHES, COUGH, SORE THROAT COVID TEST/WCH EMP Other specified health status 38 WK OB 39 WK OB VAG LABOR AND DELIVERY VAG VAG D&C D&C Reason for Visit Hypothyroid Groin pain Lymphadenopathy Supervision of high-risk Hypothyroid Groin pain Lymphadenopathy Supervision of high-risk Hypothyroid Groin pain Lymphadenopathy Supervision of high-risk Hypothyroid Groin pain Lymphadenopathy Supervision of high-risk COVID-19 Hypothyroid COVID-19 Lymphadenopathy Supervision of high-risk Hypothyroid COVID-19 Lymphadenopathy Supervision of high-risk Hypothyroid COVID-19 Encounter for induction of labor Lymphadenopathy Supervision of high-risk hemorrhage Retained products of conception Chief Complaint LOW LYING PLACENTA 30 WK OB E-ORDER LWR ABD PAIN 32 WK OB 34 WK OB 36 WK OB FEVER, ACHES, COUGH, SORE THROAT COVID TEST/WCH EMP Other specified health status 38 WK OB 39 WK OB VAG LABOR AND DELIVERY VAG VAG D&C S/P D AND C S/P D AND C S/P D AND C S/P D AND C S/P D AND C Reason for Visit Hypothyroid Groin pain Lymphadenopathy Supervision of high-risk Hypothyroid Groin pain Lymphadenopathy Supervision of high-risk Hypothyroid Groin pain Lymphadenopathy Supervision of high-risk Hypothyroid Groin pain Lymphadenopathy Supervision of high-risk COVID-19 Hypothyroid COVID-19 Lymphadenopathy Supervision of high-risk Hypothyroid COVID-19 Lymphadenopathy Supervision of high-risk Hypothyroid COVID-19 Encounter for induction of labor Lymphadenopathy Supervision of high-risk Acute postoperative anemia due to greater than expected blood loss DIC (disseminated intravascular coagulation) Hypothyroid hemorrhage Retained products of conception Chief Complaint D&C S/P D AND C S/P D AND C S/P D AND C S/P D AND C S/P D AND C S/P D AND C visit (obstetrics) Acute bronchospasm Acute bronchospasm Reason for Visit Acute postoperative anemia due to greater than expected blood loss DIC (disseminated intravascular coagulation) Hypothyroid hemorrhage Retained products of conception Routine Follow-Up Chief Complaint Acute bronchospasm Acute bronchospasm Z11.4 Chief Complaint Admit Date EST CARE July 22, 2024 2:56pm VAG BLEED, PREG October 05, 2024 9:5 5pm Reason for Visit Admit Date Segmental dysfunction of lumbar region [facility] 2024 2:56pm Segmental dysfunction of thoracic region July 22, 2024 2:56pm Segmental and somatic dysfunction of lum bar region July 22, 2024 2:56pm Chief Complaint Admit Date EST CARE July 22, 2024 2:56pm VAG BLEED, PREG October 05, 2024 9:5 5pm NOB 8WK IVF TETO 05/13October 07, 2024 2: 42pm 10 WK OB October 21, 2024 2:48p m Reason for Visit Admit Date [facility] 2:56pm Segmental dysfunction of thoracic region July 22, 2024 2:56pm Segmental and somatic dysfunction of lum bar region July 22, 2024 2:56pm Conceived by in vitro fertilization Apri l 2024 2:42pm History of hemorrhage, curren tly October 07, 2024 2:42pm Infertility October 07, 2024 2:4 2pm October 07, 2024 2:4 2pm Supervision of high-risk October 07, 2024 2:42pm DIC (disseminated intravascular coagulat ion) October 07, 2024 2:42pm Endometriosis October 07, 2024 2:4 2pm Threatened miscarriage October 07, 2024 2:42pm Vaginal bleeding during October 07, 2024 2:42pm Conceived by in vitro fertilization October 21, 2024 2:48pm History of hemorrhage, curren tly October 21, 2024 2:48pm Infertility October 21, 2024 2:48p m October 21, 2024 2:48p m Supervision of high-risk October 092024 2:48pm Chief Complaint Admit Date EST CARE July 22, 2024 2:56pm VAG BLEED, PREG October 05, 2024 9:5 5pm NOB 8WK IVF TETO /October 07, 2024 2: 42pm 10 WK OB October 21, 2024 2:48p m 12wk ob November 04, 2024 3:15p m Reason for Visit Admit Date Segmental dysfunction of lumbar region F ebruary 2024 2:56pm Segmental dysfunction of thoracic region July 22, 2024 2:56pm Segmental and somatic dysfunction of lum bar region July 22, 2024 2:56pm Conceived by in vitro fertilization Apri l 2024 2:42pm History of hemorrhage, curren tly October 07, 2024 2:42pm Infertility October 07, 2024 2:4 2pm October 07, 2024 2:4 2pm Supervision of high-risk October 07, 2024 2:42pm DIC (disseminated intravascular coagulat ion) October 07, 2024 2:42pm Endometriosis October 07, 2024 2:4 2pm Threatened miscarriage October 07, 2024 2:42pm Vaginal bleeding during October 07, 2024 2:42pm Conceived by in vitro fertilization October 21, 2024 2:48pm History of hemorrhage, romero carter October 21, 2024 2:48pm Infertility October 21, 2024 2:48p m October 21, 2024 2:48p m Supervision of high-risk October 092024 2:48pm Conceived by in vitro fertilization November 04, 2024 3:15pm History of hemorrhage, romero tly November 04, 2024 3:15pm Infertility November 04, 2024 3:15p m November 04, 2024 3:15p m Supervision of high-risk October 102024 3:15pm Chief Complaint Admit Date VAG BLEED, PREG October 05, 2024 9:5 5pm NOB 8WK IVF TETO 05/13October 07, 2024 2: 42pm 10 WK OB October 21, 2024 2:48p m 12wk ob November 04, 2024 3:15p m ADJUSTMENT November 26, 2024 9:56 am Reason for Visit Admit Date Conceived by in vitro fertilization Apri l 2024 2:42pm History of hemorrhage, romero carter October 07, 2024 2:42pm Infertility October 07, 2024 2:4 2pm October 07, 2024 2:4 2pm Supervision of high-risk October 07, 2024 2:42pm DIC (disseminated intravascular coagulat ion) October 07, 2024 2:42pm Endometriosis October 07, 2024 2:4 2pm Threatened miscarriage October 07, 2024 2:42pm Vaginal bleeding during October 07, 2024 2:42pm Conceived by in vitro fertilization October 21, 2024 2:48pm History of hemorrhage, romero carter October 21, 2024 2:48pm Infertility October 21, 2024 2:48p m October 21, 2024 2:48p m Supervision of high-risk October 092024 2:48pm Conceived by in vitro fertilization November 04, 2024 3:15pm History of hemorrhage, romero gily November 04, 2024 3:15pm Infertility November 04, 2024 3:15p m November 04, 2024 3:15p m Supervision of high-risk October 102024 3:15pm Chief Complaint Admit Date VAG BLEED, PREG October 05, 2024 9:5 5pm NOB 8WK IVF TETO 05/13October 07, 2024 2: 42pm 10 WK OB October 21, 2024 2:48p m 12wk ob November 04, 2024 3:15p m ADJUSTMENT November 26, 2024 9:56 am 16wk ob December 05, 2024 11:3 9am Reason for Visit Admit Date Conceived by in vitro fertilization Apri l 2024 2:42pm History of hemorrhage, romero carter October 07, 2024 2:42pm Infertility October 07, 2024 2:4 2pm October 07, 2024 2:4 2pm Supervision of high-risk October 07, 2024 2:42pm DIC (disseminated intravascular coagulat ion) October 07, 2024 2:42pm Endometriosis October 07, 2024 2:4 2pm Threatened miscarriage October 07, 2024 2:42pm Vaginal bleeding during October 07, 2024 2:42pm Conceived by in vitro fertilization October 21, 2024 2:48pm History of hemorrhage, romero carter October 21, 2024 2:48pm Infertility October 21, 2024 2:48p m October 21, 2024 2:48p m Supervision of high-risk October 092024 2:48pm Conceived by in vitro fertilization November 04, 2024 3:15pm History of hemorrhage, romero carter November 04, 2024 3:15pm Infertility November 04, 2024 3:15p m November 04, 2024 3:15p m Supervision of high-risk October 102024 3:15pm Conceived by in vitro fertilization December 05, 2024 11:39am History of hemorrhage, romero carter December 05, 2024 11:39am Infertility December 05, 2024 11:3 9am December 05, 2024 11:3 9am Supervision of high-risk December 05, 2024 11:39am Chief Complaint Admit Date VAG BLEED, PREG October 05, 2024 9:5 5pm NOB 8WK IVF TETO 05/13October 07, 2024 2: 42pm 10 WK OB October 21, 2024 2:48p m 12wk ob November 04, 2024 3:15p m ADJUSTMENT November 26, 2024 9:56 am 16wk ob December 05, 2024 11:3 9am ADJUSTMENT December 11, 2024 11:58 am Chief Complaint Admit Date VAG BLEED, PREG October 05, 2024 9:5 5pm NOB 8WK IVF TETO 05/13October 07, 2024 2: 42pm 10 WK OB October 21, 2024 2:48p m 12wk ob November 04, 2024 3:15p m ADJUSTMENT November 26, 2024 9:56 am 16wk ob December 05, 2024 11:3 9am ADJUSTMENT December 11, 2024 11:58 am Cough December 11, 2024 2:51p m Chief Complaint Admit Date VAG BLEED, PREG October 05, 2024 9:5 5pm NOB 8WK IVF TETO 05/13October 07, 2024 2: 42pm 10 WK OB October 21, 2024 2:48p m 12wk ob November 04, 2024 3:15p m ADJUSTMENT November 26, 2024 9:56 am 16wk ob December 05, 2024 11:3 9am ADJUSTMENT December 11, 2024 11:58 am Cough December 11, 2024 2:51p m ADJUSTMENT December 16, 2024 2:59p m Reason for Visit Admit Date Conceived by in vitro fertilization Apri l 2024 2:42pm History of hemorrhage, curren tly October 07, 2024 2:42pm Infertility October 07, 2024 2:4 2pm October 07, 2024 2:4 2pm Supervision of high-risk October 07, 2024 2:42pm DIC (disseminated intravascular coagulat ion) October 07, 2024 2:42pm Endometriosis October 07, 2024 2:4 2pm Threatened miscarriage October 07, 2024 2:42pm Vaginal bleeding during October 07, 2024 2:42pm Conceived by in vitro fertilization October 21, 2024 2:48pm History of hemorrhage, curren tly October 21, 2024 2:48pm Infertility October 21, 2024 2:48p m October 21, 2024 2:48p m Supervision of high-risk October 092024 2:48pm Conceived by in vitro fertilization November 04, 2024 3:15pm History of hemorrhage, romero carter November 04, 2024 3:15pm Infertility November 04, 2024 3:15p m November 04, 2024 3:15p m Supervision of high-risk October 102024 3:15pm Conceived by in vitro fertilization December 05, 2024 11:39am History of hemorrhage, romero carter December 05, 2024 11:39am Infertility December 05, 2024 11:3 9am December 05, 2024 11:3 9am Supervision of high-risk December 05, 2024 11:39am Segmental dysfunction of lumbar region J violeta 2024 11:58am Segmental dysfunction of thoracic region December 11, 2024 11:58am Acute bronchitis December 11, 2024 2:51p m Segmental and somatic dysfunction of lum bar region December 16, 2024 2:59pm Segmental dysfunction of lumbar region J violeta 2024 2:59pm Segmental dysfunction of thoracic region December 16, 2024 2:59pm Reason for Referral Specialty Diagnoses / Procedures Referred By Contac t Referred To Contact Radiology Diagnoses Bronchospasm Procedures Complete PFT study Deejay Glasgow PA-C [address] [place] [address] [address] Referral ID Status Reason Start Date Expiration Date V isits Requested Visits Authorized [id number] Authorized 03/15/2023 09/11/2023 1 1 Additional Source Comments INFORMATION SOURCE (unrecogn ized section and content) DATE CREATED AUTHOR 11/29/2017 [facility] DATE CREATED AUTHOR AUTHOR'S ORGANIZ ATION 12/28/2020 [facility] DATE CREATED AUTHOR AUTHOR'S ORGANIZ ATION 08/09/2021 [facility] DATE CREATED AUTHOR AUTHOR'S ORGANIZ ATION 08/18/2021 [facility] DATE CREATED AUTHOR AUTHOR'S ORGANIZ ATION 10/28/2021 [facility] DATE CREATED AUTHOR AUTHOR'S ORGANIZ ATION 04/19/2022 [facility] DATE CREATED AUTHOR AUTHOR'S ORGANIZ ATION 08/09/2022 [facility] DATE CREATED AUTHOR AUTHOR'S ORGANIZ ATION 07/28/2023 [facility] DATE CREATED AUTHOR AUTHOR'S ORGANIZ ATION [facility] [facility] Care Teams (unrecognized sec tion and content) Team Status: Active Member Role Status Dates SHANNAN VAZQUEZ DO Primary Care Provider Active Team Status: Active Member Role Status Dates SHANNAN VAZQUEZ DO Primary Care Provider Active RAFY Churchill Referring Provider, Other Provider A ctive Dr. Neil Wiggins , DO Attending Provider Active Team Status: Inactive Member Role Status Dates SHANNAN VAZQUEZ DO Primary Care Provider Active RAFY Churchill Attending Provider, Referring Provid er Active Team Status: Inactive Member Role Status Dates SHANNAN VAZQUEZ DO Primary Care Provider Active Dr. Christina Valera MD Attending Provider, Referring Provider Active Field Reporter Relationship Specialty Start Date End Date Sonia Girard DO [address] [place] [address] PCP - General Obstetrics & Gynecology 01/31/21 Team Status: Active Member Role Status Dates Shannan Vazquez Primary Care Provider Active Team Status: Inactive Member Role Status Hawa Vazquez Primary Care Provider, Referring Prov ider Active Dr. Paola Weeks DO Attending Provider Activ e Team Status: Active Member Role Status Hawa Vazquez Primary Care Provider, Attending Prov ider Active Team Status: Inactive Member Role Status Dates Shannan Vazquez Primary Care Provider Active Dr. Christina Valera MD Attending Provider, Referring Provider Active Team Status: Inactive Member Role Status Hawa Vazquez Primary Care Provider Active Dr. Paola Weeks DO Attending Provider Activ e Team Status: Inactive Member Role Status Dates Shannan Vazquez Primary Care Provider Active Dr. Paola Weeks DO Attending Provider, Refe rring Provider Active Team Status: Active Member Role Status Hawa PHELPS Primary Care Provider Active Team Status: Inactive Member Role Status Dates Shannan PHELPS Primary Care Provider, Referring Provider Active Dr. Paola Weeks DO Attending Provider Activ e Team Status: Inactive Member Role Status Hawa PHELPS Primary Care Provider, Referring Provider Active Dr. Nat Gomez MD Attending Provider Active Team Status: Active Member Role Status Hawa Holleyina Taylor PHELPS Primary Care Provider, Attending Provider Active Team Status: Inactive Member Role Status Hawa Holleymolina Vazquez LENIN Primary Care Provider, Referring Provider Active Julia Chavez BOAT DECKHAND, BOAT DECKHAND-C Attending Provider Active Team Status: Inactive Member Role Status Hawa PHELPS Primary Care Provider, Referring Provider Active Bharathi Moreno PA, PA Attending Provider Active Team Status: Inactive Member Role Status Hawa PHELPS Primary Care Provider Active Dr. Paola Weeks DO Attending Provider Activ e Team Status: Inactive Member Role Status Hawa PHELPS Primary Care Provider Active Dr. Paola Weeks DO Attending Provider, Refe rring Provider Active Team Status: Inactive Member Role Status Hawa Shannan Vazquez LENIN Primary Care Provider Active Julia Chavez BOAT DECKHAND, BOAT DECKHAND-C Attending Provider, Referring Provider Active Team Status: Inactive Member Role Status Hawa PHELPS Referring Provider Active Dr. Chris Lazaro MD Attending Provider Active SHANNAN VAZQUEZ DO Primary Care Provider Active Team Status: Inactive Member Role Status Hawa PHELPS Referring Provider Active Niya Armstrong CNM Attending Provider Active SHANNAN VAZQUEZ DO Primary Care Provider Active Team Status: Inactive Member Role Status Hawa VAZQUEZ DO Primary Care Provider, Referring Provider Active Niya Armstrong CNM Attending Provider Active Team Status: Inactive Member Role Status Hawa VAZQUEZ DO Primary Care Provider, Referring Provider Active Dr. Paola Weeks DO Attending Provider Activ e Team Status: Active Member Role Status Hawa VAZQUEZ DO Primary Care Provider Active Dr. Ronni Larkin MD Attending Provider Active Team Status: Inactive Member Role Status Dates Dr. Nat Gomez MD Attending Provider, Referr ing Provider Active SHANNAN VAZQUEZ DO Primary Care Provider Active Team Status: Inactive Member Role Status Hawa VAZQUEZ DO Primary Care Provider Active Dr. Nat Gomez MD Attending Provider, Referr ing Provider Active Team Status: Inactive Member Role Status Hawa VAZQUEZ DO Primary Care Provider Active Niya Armstrong CNM Attending Provider, Referring Pro vider Active Team Status: Inactive Member Role Status Dates SHANNAN VAZQUEZ , DO Primary Care Provider Active Dr. Paola Weeks , DO Attending Provider, Refe rring Provider Active Team Status: Active Member Role Status Hawa VAZQUEZ , DO Primary Care Provider Active Dr. Paola Weeks , DO Attending Provider, Refe rring Provider Active Team Status: Active Member Role Status Hawa VAZQUEZ , DO Primary Care Provider Active Dr. Ronni Larkin MD Attending Provider Active Dr. Paola Weeks , DO Referring Provider Activ e Team Status: Inactive Member Role Status Hawa VAZQUEZ , DO Primary Care Provider Active Dr. Paola Weeks , DO Attending Provider Activ e Team Status: Inactive Member Role Status Hawa VAZQUEZ , DO Primary Care Provider, Referring Provider Active Joseph Mejia PA, PA Attending Provider Active Team Status: Inactive Member Role Status Hawa VAZQUEZ , DO Primary Care Provider, Referring Provider Active Nick Cordon CNM Attending Provider Active Team Status: Active Member Role Status Hawa VAZQUEZ , DO Primary Care Provider Active Dr. Nat Gomez MD Admit Provider, Other Prov ider Active Niya Armstrong CNM Attending Provider Active Team Status: Active Member Role Status Hawa VAZQUEZ DO Primary Care Provider Active Niya Armstrong CNM Admit Provider, Attending Provide r, Other Provider Active Team Status: Active Member Role Status Hawa VAZQUEZ DO Primary Care Provider Active Dr. Sampson De León , DO Emergency Provider Active Dr. Nat Gomez MD Attending Provider, Other Provider Active Team Status: Inactive Member Role Status Hawa VAZQUEZ , DO Primary Care Provider Active Niya Armstrong CNM Admit Provider, Attending Provide r Active Team Status: Active Member Role Status Hawa VAZQUEZ DO Primary Care Provider Active Dr. Sampson De León , DO Emergency Provider Active Dr. Nat Gomez MD Attending Provider Active Team Status: Active Member Role Status Hawa VAZQUEZ DO Primary Care Provider Active Dr. Sampson De León , DO Emergency Provider Active Dr. Nat Gomez MD Admit Provider, Other Prov ider Active Dr. Valentine Urbina MD Attending Provider, Other Provid er Active Team Status: Active Member Role Status Hawa VAZQUEZ DO Primary Care Provider Active Dr. Sampson De León , DO Emergency Provider Active Dr. Nat Gomez MD Admit Provid er, Attending Provider, Other Provider Active Dr. Valentine Urbina MD Other Provider Active Team Status: Active Member Role Status Dates SHANNAN VAZQUEZ DO Primary Care Provider Active Dr. Sampson De León , DO Emergency Provider Active Dr. Nat Gomez MD Admit Provider, Other Prov ider Active Dr. Nidhi Haro MD Attending Provider, Other Prov ider Active Team Status: Active Member Role Status Dates SHANNAN VAZQUEZ DO Primary Care Provider Active Dr. Sampson De León , DO Emergency Provider Active Dr. Nat Gomez MD Admit Provider, Other Prov ider Active Dr. Nidhi Haro MD Other Provider Active Dr. Paola Weeks , DO Attending Provider Activ e Team Status: Inactive Member Role Status Dates SHANNAN VAZQUEZ DO Primary Care Provider Active Dr. Sampson De León , DO Emergency Provider Active Dr. Nat Gomez MD Admit Provider, Attending Provider Active Dr. Nidhi Haro MD Other Provider Active Field Reporter Relationship Specialty Start Date End Date Kishan Vazquezina Alfredo DO [address] [place] [address] PCP - General 12/26/21 Field Reporter Relationship Specialty Start Date End Date Kishan Vazquezina Alfredo DO [address] [place] [address] PCP - General 12/26/21 Team Status: Active Member Role Status Dates SHANNAN VAZQUEZ DO Primary Care Provider Active Dr. Sampson De León , DO Emergency Provider Active Dr. Nat Gomez MD Attending Pr ovider, Referring Provider, Other Provider Active Team Status: Active Member Role Status Hawa VAZQUEZ DO Primary Care Provider Active Dr. Sampson De León , DO Emergency Provider Active Dr. Nat Gomez MD Admit Provid er, Referring Provider, Other Provider Active Dr. Valentine Urbina MD Attending Provider, Other Provid er Active Team Status: Active Member Role Status Dates Dr. Tatyana Matta MD Primary Care Provider Active Team Status: Inactive Member Role Status Dates SHANNAN VAZQUEZ DO Primary Care Provider Active Start: July 22, 2024 End: July 22, 2024 SHANNAN VAZQUEZ DO Referring Provider Active Start: July 22, 2024 End: July 22, 2024 Dr. Aruna Gomez DC Attending Provider Active S tart: July 22, 2024 End: July 22, 2024 Team Status: Inactive Member Role Status Dates Nikko Guerrero MD Emergency Provider Active Star t: October 05, 2024 End: October 06, 2024 Dr. Tatyana Matta MD Primary Care Provider Active Start: October 05, 2024 End: October 06, 2024 Team Status: Inactive Member Role Status Dates Nikko Guerrero MD Attending Provider Active Star t: October 05, 2024 End: October 06, 2024 Nikko Guerrero MD Emergency Provider Active Star t: October 05, 2024 End: October 06, 2024 Dr. Tatyana Matta MD Primary Care Provider Active Start: October 05, 2024 End: October 06, 2024 Team Status: Inactive Member Role Status Dates SHANNAN VAZQUEZ DO Referring Provider Active Start: October 07, 2024 End: October 07, 2024 Niya Armstrong CNM Attending Provider Active S tart: October 07, 2024 End: October 07, 2024 Dr. Tatyana Matta MD Primary Care Provider Active Start: October 07, 2024 End: October 07, 2024 Team Status: Inactive Member Role Status Dates Dr. Tatyana Matta MD Primary Care Provider Active Start: October 07, 2024 End: October 07, 2024 Niya Armstrong CNM Attending Provider Active S tart: October 07, 2024 End: October 07, 2024 Niya Armstrong CNM Referring Provider Active S tart: October 07, 2024 End: October 07, 2024 Team Status: Inactive Member Role Status Dates Dr. Tatyana Matta MD Primary Care Provider Active Start: October 21, 2024 End: October 21, 2024 Dr. Tatyana Matta MD Referring Provider Active Start: October 21, 2024 End: October 21, 2024 Dr. Nat Gomez MD Attending Provider Active Start: October 21, 2024 End: October 21, 2024 Team Status: Active Member Role Status Dates Dr. Tatyana Matta MD Primary Care Provider Active Start: October 21, 2024 Dr. Nat Gomez MD Attending Provider Active Start: October 21, 2024 Dr. Nat Gomez MD Referring Provider Active Start: October 21, 2024 Team Status: Inactive Member Role Status Dates Dr. Tatyana Matta MD Primary Care Provider Active Start: October 21, 2024 End: October 21, 2024 Dr. Nat Gomez MD Attending Provider Active Start: October 21, 2024 End: October 21, 2024 Dr. Nta Gomez MD Referring Provider Active Start: October 21, 2024 End: October 21, 2024 Team Status: Inactive Member Role Status Dates Dr. Tatyana Matta MD Primary Care Provider Active Start: November 04, 2024 End: November 04, 2024 Dr. Tatyana Matta MD Referring Provider Active Start: November 04, 2024 End: November 04, 2024 Niya Armstrong CNM Attending Provider Active S tart: November 04, 2024 End: November 04, 2024 Team Status: Inactive Member Role Status Dates Dr. Tatyana Matta MD Primary Care Provider Active Start: November 26, 2024 End: November 26, 2024 Dr. Tatyana Matta MD Referring Provider Active Start: November 26, 2024 End: November 26, 2024 Dr. Aruna Gomez DC Attending Provider Active S tart: November 26, 2024 End: November 26, 2024 Team Status: Active Member Role/Relationship Status Dates Dr. Tatyana Matta MD Primary Care Provider Active Team Status: Inactive Member Role/Relationship Status Dates Nikko Guerrero MD Attending Provider Active Star t: October 05, 2024 End: October 06, 2024 Nikko Guerrero MD Emergency Provider Active Star t: October 05, 2024 End: October 06, 2024 Dr. Tatyana Matta MD Primary Care Provider Active Start: October 05, 2024 End: October 06, 2024 Team Status: Inactive Member Role/Relationship Status Dates SHANNAN VAZQUEZ DO Referring Provider Active Start: October 07, 2024 End: October 07, 2024 Niya Armstrong CNM Attending Provider Active S tart: October 07, 2024 End: October 07, 2024 Dr. Tatyana Matta MD Primary Care Provider Active Start: October 07, 2024 End: October 07, 2024 Team Status: Inactive Member Role/Relationship Status Dates Dr. Tatyana Matta MD Primary Care Provider Active Start: October 07, 2024 End: October 07, 2024 Niya Armstrong CNM Attending Provider Active S tart: October 07, 2024 End: October 07, 2024 Niya Armstrong CNM Referring Provider Active S tart: October 07, 2024 End: October 07, 2024 Team Status: Inactive Member Role/Relationship Status Dates Dr. Tatyana Matta MD Primary Care Provider Active Start: October 21, 2024 End: October 21, 2024 Dr. Tatyana Matta MD Referring Provider Active Start: October 21, 2024 End: October 21, 2024 Dr. Nat Gomez MD Attending Provider Active Start: October 21, 2024 End: October 21, 2024 Team Status: Inactive Member Role/Relationship Status Dates Dr. Tatyana Matta MD Primary Care Provider Active Start: October 21, 2024 End: October 21, 2024 Dr. Nat Gomez MD Attending Provider Active Start: October 21, 2024 End: October 21, 2024 Dr. Nat Gomez MD Referring Provider Active Start: October 21, 2024 End: October 21, 2024 Team Status: Inactive Member Role/Relationship Status Dates Dr. Tatyana Matta MD Primary Care Provider Active Start: November 04, 2024 End: November 04, 2024 Dr. Tatyana Matta MD Referring Provider Active Start: November 04, 2024 End: November 04, 2024 Niya Armstrong CNM Attending Provider Active S tart: November 04, 2024 End: November 04, 2024 Team Status: Inactive Member Role/Relationship Status Dates Dr. Tatyana Matta MD Primary Care Provider Active Start: November 26, 2024 End: November 26, 2024 Dr. Tatyana Matta MD Referring Provider Active Start: November 26, 2024 End: November 26, 2024 Dr. Aruna Gomez DC Attending Provider Active S tart: November 26, 2024 End: November 26, 2024 Team Status: Inactive Member Role/Relationship Status Dates Dr. Tatyana Matta MD Primary Care Provider Active Start: December 05, 2024 End: December 05, 2024 Dr. Tatyana Matta MD Referring Provider Active Start: December 05, 2024 End: December 05, 2024 Nick Cordon CNM Attending Provider Active Start: December 05, 2024 End: December 05, 2024 Team Status: Inactive Member Role/Relationship Status Dates Dr. Tatyana Matta MD Primary Care Provider Active Start: December 11, 2024 End: December 11, 2024 Dr. Tatyana Matta MD Referring Provider Active Start: December 11, 2024 End: December 11, 2024 Dr. Aruna Gomez DC Attending Provider Active S tart: December 11, 2024 End: December 11, 2024 Team Status: Inactive Member Role/Relationship Status Dates Dr. Tatyana Matta MD Primary Care Provider Active Start: December 11, 2024 End: December 11, 2024 Dr. Tatyana Matta MD Referring Provider Active Start: December 11, 2024 End: December 11, 2024 Bharathi HILLMAN PA Attending Provider Active Sta rt: December 11, 2024 End: December 11, 2024 Team Status: Inactive Member Role/Relationship Status Dates Dr. Tatyana Matta MD Primary Care Provider Active Start: December 16, 2024 End: December 16, 2024 Dr. Tatyana Matta MD Referring Provider Active Start: December 16, 2024 End: December 16, 2024 Dr. Aruna Gomez DC Attending Provider Active S tart: December 16, 2024 End: December 16, 2024 Goals (unrecognized section and content) Goals may be documented in a n alternate sectionGoals may be documented in an alternate sectionGoals may be documented in an alternate sectionGoals may be documented in an alternate sectionGoals may be documented in an alternate sectionGoals may be documented in an alternate sectionGoals may be documented in an alternate sectionGoals may be documented in an alternate section Reason for Visit (unrecogniz ed section and content) Reason Comments Asthma Wants tested Reason Onset Date Comments Asthma 03/14/2023 FOR RECORDS PERTAINING TO PATIENTS WHO ARE OR HAVE BEEN ENROLLED IN A CHEMICAL DEPENDENCY/SUBSTANCEABUSE PROGRAM, SOME INFORMATION MAY BE OMITTED. This clinical summary was aggregated from multiple sources. Caution should be exercised in using it in the provision of clinical care. This summary normalizes information from multiple sources, and as a consequence, information in this document may materially change the coding, format and clinical context of patient data. In addition, data may be omitted in some cases. CLINICAL DECISIONS SHOULD BE BASED ON THE PRIMARY CLINICAL RECORDS. [facility] [employer] [facility]. provides no warranty or guarantee of the accuracy or completeness of information in this document.
--- NOTE | 2024-12-25 23:47 | OB.TRI.HP_ITS ---
HPI - General General Date of Admission: 12/25/24 HPI Narrative KATIE ARAUJO, is a 34 y/o @ 20 weeks who was called in to l&d to set up an urgent MRI due to concerns of position, placentation, and head size from the distribution technician. The premises technician paged me twice with concerns that the baby is located in the cul-de-sac and possibly not the uterus. The patient was IVF and we do have a 1st trimester ultrasound that confirmed that the fetus was situated in the uterus. After discussing with MFM in [place], the chance of the becoming extrauterine after implantation in the uterus is rare, however recommendation was made to perform an MRI to know more. Maternal Data Information TETO Calculator Estimated Delivery Date Method Current Current Estimate 05/13/25 Conception 21w 0d Other Estimates 05/20/25 Ultrasound #1 20w 0d PFSH PFSH Medical History Segmental and somatic dysfunction of lumbar region Segmental dysfunction of thoracic region Segmental dysfunction of lumbar region Endometriosis DIC (disseminated intravascular coagulation) Retained products of conception hemorrhage Conceived by in vitro fertilization Hypothyroid Acute postoperative anemia due to greater than expected blood loss Vaginal delivery Infertility COVID-19 Recurrent bacterial infection Low-lying placenta Raynauds syndrome Home Medications ?Medication ?Instructions ?Recorded ?Last Taken ?Type PNV no.63-iron,carbonyl 27mg-folic 1 cap PO QDAY 10/02 Unknown History acid 800 mcg-dha 200 mg capsule Allergy/AdvReac Type Severity Reaction Status Date / Time No Known Allergies Allergy Verified 12/25/24 18:45 Family History Father Lung cancer, Onset Age: 42 Mother Lymphoma, Onset Age: 54 Thyroid disorder Surgical History H/O dilation and curettage History of surgery Hx of wisdom tooth extraction Hx of tonsillectomy Hx of laparoscopy Social History adopted: No household members: spouse and children housing: house number of children: 1 current occupational status: employed 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 current occupational exposures/hazards: No pets and animals: Yes pets and animals: dog(s) history of recent travel: No sexually active: Yes Smoking Status: Never smoker alcohol intake: former details: not while substance use type: does not use well-balanced diet: daily or most days caffeine: No eating out: rarely or never during the past year weight has: increased > 10 lbs what type of physical activity do you participate in: walking, yoga and weight training frequency: 3-4 times per week duration: 30-45 minutes/day diego/moravian: None seatbelt use: always do you feel safe at home: Yes 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 Date Name GA/Weeks Outcome Route Bth Weight Gen Labor Lgth Anesthesia Del Locatn Provider FOB 02/02/23 Angelito 39 live - full term 9lbs Female [facility] Brent Zee Visit Details Expected Delivery Route/Plan Labor Preferences- CB/BF classes: [] labor support person: [] labor intervention preferences: [] pain management options preferred: [] cut cord/dad catch: [] : [] PP control planned: [] discussed possible routes of delivery and associated risks: [] special requests: [] Plans Covid status: [] Flu vaccine: [] Tdap vaccine: [] Rhogam: [] LARC form signed: [] Problem list reviewed and updated with the most current plan of care details and appropriate orders placed. Relevant counseling for the gestational age provided. Continue routine care and follow up unless otherwise noted in visit notes/problem list details OB Flowsheet Initial Weight: 193 lb Date -?-?-?-?-?-?-?-?-?-?-?-?- EGA Weight BP Urine Prot -?-?-?-?-?-?-?-?-?-?-?-?- Glucose FHR FuHt Pres Dilation -?-?-?-?-?-?-?-?-?-?-?-?- Effaced St Visit Note 10/07/24 -?-?-?-?-?-?-?-?-?-?-?-?- 8w 6d 193 lb 8 oz (+8 oz) 121/84 -?-?-?-?-?-?-?-?-?-?-?-?- 173 -?-?-?-?-?-?-?-?-?-?-?-?- KW- CRL cons wit h hospital US. 7 days behind IVF implantation and US dating. accepts NIPT. had heavy bleeding over the weekend with clots. KW- CRL cons with hospital U S. 7 days behind IVF implantation and US dating. accepts NIPT. had heavy bleeding over the weekend with clots. RTO in 2 weeks 10/21/24 -?-?-?-?-?-?-?-?-?-?-?-?- 10w 6d 195 lb 2 oz (+2 lb 2 oz) 115/79 Negative -?-?-?-?-?-?-?-?-?-?-?-?- Negative 150 -?-?-?-?-?-?-?-?-?-?-?-?- SM- no vb crampi ng SM- no vb cramping 4mm subch orionic hematoma resolving 11/04/24 -?-?-?-?-?-?-?-?-?-?-?-?- 12w 6d 196 lb 4 oz (+3 lb 4 oz) 117/81 Negative -?-?-?-?-?-?-?-?-?-?-?-?- Negative 150 -?-?-?-?-?-?-?-?-?-?-?-?- KW- some bleedin g one day last week x 1 episode- but stopped. none since. Vit B6 and Unisom and Zofran for nausea. US with hospital. 12/05/24 -?-?-?-?-?-?-?-?-?-?-?-?- 17w 2d 195 lb 4 oz (+2 lb 4 oz) 116/82 Negative -?-?-?-?-?-?-?-?-?-?-?-?- Negative 140 -?-?-?-?-?-?-?-?-?-?-?-?- LC- no vb/ctx. f eeling flutters. anatomy scheduled. 07/17/25 -?-?-?-?-?-?-?-?-?-?-?-?- 20w 1d -?-?--?-?-?-?-?-?-?-?-?-?- -?-?-?-?-?-?-?-?-?-?-?-?- Triage evaluatio n for position due to concerns from radiology- MRI performed and normal. Assessment & Plan (1) Abnormal ultrasound: COMMENT: MRI confirmed intrauterine with one normal placenta. PLAN: THe results were given to the patient and she was discharged to home.
== END 2024-12-25 20:52 | disposition home or self-care (01) ==
LOC: US 18:37 → WPOUT 18:38 → WP 18:38
PROVIDERS: PCP Internal Medicine; Referring Provider Obstetrics & Gynecology; Visit Provider Obstetrics & Gynecology
DX: O28.3 Abnormal ultrasonic finding on antenatal screening of mother (principal); Z3A.20 20 weeks gestation of pregnancy; Z86.16 Personal history of COVID-19
CPT/HCPCS: 72195; 76805; 76817; 99221; G0378

== ENCOUNTER → 2025-01-01 | Outpatient (CLI) | payer OTHER, SELFPAY | END | disposition home or self-care (01) | LOC: LABSPEC 08:59 | PROVIDERS: PCP Internal Medicine; Referring Provider Physician Assistant Surgical; Visit Provider Physician Assistant Surgical | DX: R35.0 Frequency of micturition (principal) | CPT/HCPCS: 87077; 87086; 87088; 87186 ==

== ENCOUNTER → 2025-02-19 | Outpatient (CLI) | payer OTHER, SELFPAY ==
[2025-02-19 17:17] LABS: Glucose Challenge Gest 1H 50g 117 mg/dL (70-140); HIV Nonreactive (Nonreactive); Syphilis Antibodies Nonreactive (Nonreactive)
[2025-02-19 17:57] LABS: Hematocrit 34.8 % (37-47); Hemoglobin 12.6 g/dL (12.0-15.0); Immature Granulocytes Count 0.220 X10^3/uL (0.0-0.0); Mean Corp Hgb Conc 36.2 g/dL (32-36); Mean Corpuscular Volume 92.6 fL (81-99); Mean Platelet Vol. 12.4 fl (6.2-12.0); NRBC Flagged by Analyzer 0 % (0-5); Platelet Count 178 K/mm3 (150-450); RBC Distribution Width CV 14.3 % (11.6-14.6); RBC Distribution Width SD 48.0 fl (35.1-43.9); Red Blood Count 3.76 M/mm3 (4.2-5.4); White Blood Count 13.5 K/mm3 (4.4-11.0)
[2025-02-21 06:08] LABS: CMV Acute Antibody IgM < 30.0 AU/mL (0.0-29.9)
== END | disposition home or self-care (01) ==
LOC: BWCLAB 15:21
PROVIDERS: Nurse Practitioner Women's Health; PCP Internal Medicine; Referring Provider Obstetrics & Gynecology; Visit Provider Obstetrics & Gynecology
DX: O09.90 Supervision of high risk pregnancy, unspecified, unspecified trimester (principal); Z3A.00 Weeks of gestation of pregnancy not specified
CPT/HCPCS: 36415; 82950; 85025; 86644; 86645; 86703; 86780

== ENCOUNTER → 2025-04-17 | Outpatient (CLI) | payer OTHER, SELFPAY | END | disposition home or self-care (01) | LOC: LABSPEC 16:23 | PROVIDERS: PCP Internal Medicine; Visit Provider Advanced Practice Midwife | DX: O09.93 Supervision of high risk pregnancy, unspecified, third trimester (principal); Z3A.00 Weeks of gestation of pregnancy not specified | CPT/HCPCS: 87081 ==

== ENCOUNTER 2025-04-24 17:34 | Inpatient (IN) | payer OTHER, SELFPAY ==
[2025-04-24] VITALS (9 sets, daily range): BP systolic 106–144; BP diastolic 57–90; PULSE 89–221; RESP 16–18; TEMP 36.6–37.2; O2SAT 82–99; BMI 34.9
--- NOTE | 2025-04-24 17:50 | HP.PCM.OB_ITS ---
HPI - General General Date of Admission: 04/24/25 HPI Narrative KATIE ARAUJO, is a 35 F who presents for IOL secondary to IUGR Maternal Data Information TETO Calculator Estimated Delivery Date Method Current WG Current Estimate 05/13/25 Conception 37w 3d Other Estimates 05/20/25 Ultrasound #1 36w 3d PFSH PFS Medical History (Updated 04/24/25 @ 20:35 by Liz Lee) Oligohydramnios Segmental and somatic dysfunction of lumbar region Segmental dysfunction of thoracic region Segmental dysfunction of lumbar region Acute postoperative anemia due to greater than expected blood loss DIC (disseminated intravascular coagulation) Retained products of conception hemorrhage Vaginal delivery Infertility COVID-19 Recurrent bacterial infection Low-lying placenta Hypothyroid Raynauds syndrome Endometriosis Conceived by in vitro fertilization Home Medications Medication Instructions Recorded Last Taken Type PNV no.63-iron,carbonyl 27 1 cap PO QDAY 04/23/25 20:00 History mg-folic acid 800 mcg-dha 200 mg capsule Allergy/AdvReac Type Severity Reaction Status Date / Time No Known Allergies Allergy Verified 04/24/25 20:22 Family History Father Lung cancer, Onset Age: 42 Mother Lymphoma, Onset Age: 54 Thyroid disorder Surgical History H/O dilation and curettage History of surgery Hx of wisdom tooth extraction Hx of tonsillectomy Hx of laparoscopy Social History adopted: No household members: spouse and children housing: house number of children: 1 current occupational status: employed 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 current occupational exposures/hazards: No pets and animals: Yes pets and animals: dog(s) history of recent travel: No sexually active: Yes Smoking Status: Never smoker alcohol intake: former details: not while substance use type: does not use well-balanced diet: daily or most days caffeine: No eating out: rarely or never during the past year weight has: increased > 10 lbs what type of physical activity do you participate in: walking, yoga and weight training frequency: 3-4 times per week duration: 30-45 minutes/day diego/adventism: None seatbelt use: always do you feel safe at home: Yes 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 Date Name GA/Weeks Outcome Route Bth Weight Gen Labor Lgth Anesthesia Del Locatn Provider FOB 02/02/23 Angelito 39 live - full term 9lbs Female [facility] Brent Armstrong Yayo Visit Details Expected Delivery Route/Plan Labor Preferences- CB/BF classes: no labor support person: Yayo labor intervention preferences: [] pain management options preferred: open to what she requests cut cord/dad catch: yes : yes PP control planned: discussed discussed possible routes of delivery and associated risks: [] special requests: [] Plans Covid status: [] Flu vaccine: employer Tdap vaccine: given Rhogam: NA LARC form signed: yes Problem list reviewed and updated with the most current plan of care details and appropriate orders placed. Relevant counseling for the gestational age provided. Continue routine care and follow up unless otherwise noted in visit notes/problem list details OB Flowsheet Initial Weight: 193 lb Date - - - - - - - - - - - - - EGA Weight BP Urine Prot - - - - - - - - - - - - - Glucose FHR FuHt Pres Dilation - - - - - - - - - - - - - Effaced St Visit Note 10/07/24 - - - - - - - - - - - - - 8w 6d 193 lb 8 oz (+8 oz) 121/84 - - - - - - - - - - - - - 173 - - - - - - - - - - - - - KW- CRL cons [facility] US. 7 days behind IVF implantation and US dating. accepts NIPT. had heavy bleeding over the weekend with clots. KW- CRL cons with hospital U S. 7 days behind IVF implantation and US dating. accepts NIPT. had heavy bleeding over the weekend with clots. RTO in 2 weeks 10/21/24 - - - - - - - - - - - - - 10w 6d 195 lb 2 oz (+2 lb 2 oz) 115/79 Negative - - - - - - - - - - - - - Negative 150 - - - - - - - - - - - - - SM- no vb crampi ng SM- no vb cramping 4mm subch orionic hematoma resolving 11/04/24 - - - - - - - - - - - - - 12w 6d 196 lb 4 oz (+3 lb 4 oz) 117/81 Negative - - - - - - - - - - - - - Negative 150 - - - - -- - - - - - - - - KW- some bleedin g one day last week x 1 episode- but stopped. none since. Vit B6 and Unisom and Zofran for nausea. US with hospital. 12/05/24 - - - - - - - - - -- - - - 17w 2d 195 lb 4 oz (+2 lb 4 oz) 116/82 Negative - - - - - - - - - - - - - Negative 140 - - - - - - - - - - - - - LC- no vb/ctx. f eeling flutters. anatomy scheduled. 12/25/24 - - - - - - - - - - - - - 20w 1d - - - - - - - - - - - - - - - - - - - - - - - - - - Triage evaluatio n for position due to concerns from radiology- MRI performed and normal. 01/06/25 - - - - - - - - - - - - - 21w 6d 203 lb 2 oz (+10 lb 2 oz) 111/75 Negative - - - - - - - - - - - - - Negative 143 - - - - - - - - - - - - - JV- succent. lob e on ultrasound with velamentous insertion of the side and the connecting vessels. has monthly growth scans, echo scheduled. wants CMV testing next glucose test. 01/29/25 - - - -- - - - - - - - - - 25w 1d 206 lb 3 oz (+13 lb 3 oz) 121/81 Negative - - - - - - - - - - - - - Negative 140 - - - - - - - - - - - - - SM- no vb lof go od fm no regular ctx 02/19/25 - - - - - - - - - - - - - 28w 1d 212 lb 8 oz (+19 lb 8 oz) 105/73 Negative - - - - - - - - - - - - - Negative 142 28 - - - - - - - - - - - - - MH-No VB, LOF. G ood Fm. 28 wk labs pending. Larc 03/05/25 - - - - - - - - - - - - - 30w 1d 212 lb (+19 lb) 111/72 - - - - - - - - - - - - - 135 30 - - - - - - - - - - - - - KW- no vb/lof/ct x. good fm. no concerns today 03/17/25 - - - - - - - - - - - - - 31w 6d 215 lb 4 oz (+22 lb 4 oz) 120/80 Negative - - - - - - - - - - - - - Negative 147 32 - - - - - - - - - - - - - MH-No VB, LOF. G ood FM. tdap. 04/02/25 - - - - - - - - - - - - - 34w 1d 220 lb (+27 lb) 118/80 Negative - - - - - - - - - - - - - Negative 150 33 - - - - - - - - - - - - - JV- no lof, vagi nal bleeding, or dec fm. long discussion about pp hem and succent. lobe. plan doc only for delivery. if dilated a cm she prefers am induction with muro on black sunday or sunday. 04/17/25 - - - - - - - - - - - - - 36w 2d 223 lb 4 oz (+30 lb 4 oz) 126/78 - - - - - - - - - - - - - 135 35 - - - - - - - - - - - - - KW- no vb/lof/ct x. good fm NST reactive GBS today. declines vag exam 04/24/25 - - - - - - - - - - - - - 37w 2d 222 lb 4 oz (+29 lb 4 oz) 128/85 Negative - - - - - - - - - - - - - Negative 140 36 - - - - - - - - - - - - - SM- no vb lof go od fm n oreuglar ctx discussed urine culture results from december gbs pos NST FHR Rate Baby A Baseline: 130 Variability:: Moderate Accelerations:: 15 x 15 Decelerations:: None NST Reactive:: Yes FHR Category:: Category I Uterine Activity:: irregular ROS Constitutional Constitutional: Reports systems reviewed and no addt'l complaints, except as documented Eyes Eyes: Denies change in vision ENT HEENT: Reports systems reviewed and no addt'l complaints, except as documented; Denies headache(s) Cardiovascular Cardiovascular: Reports systems reviewed and no addt'l complaints, except as documented; Denies chest pain or dyspnea Respiratory/Chest Respiratory/Chest: Reports systems reviewed and no addt'l complaints, except as documented Gastrointestinal Gastrointestinal: Reports systems reviewed and no addt'l complaints, except as documented; Denies abdominal pain Genitourinary Genitourinary: Reports systems reviewed and no addt'l complaints, except as documented, contractions Details: present (irregular) and movement Details: present; Denies dysuria or genital lesions Musculoskeletal Musculoskeletal: Reports systems reviewed and no addt'l complaints, except as documented Neurologic Neurologic: Reports systems reviewed and no addt'l complaints, except as documented Endocrine Endocrinology: Reports systems reviewed and no addt'l complaints, except as documented Vital Signs Vital Signs Vital Signs: 04/24/25 17:00 04/24/25 17:00 04/24/25 17:08 Temperature 99.0 F Temperature Source Pulse Rate 110 H Respiratory Rate Blood Pressure 139/90 H BP Systolic 139 BP Diastolic 90 Pulse Ox 04/24/25 17:08 04/24/25 17:08 04/24/25 17:08 Temperature Temperature Source Temporal Pulse Rate Respiratory Rate 18 Blood Pressure BP Systolic BP Diastolic Pulse Ox 97 04/24/25 17:08 04/24/25 17:10 04/24/25 17:10 Temperature 98.9 F Temperature Source Pulse Rate 101 H Respiratory Rate Blood Pressure BP Systolic BP Diastolic Pulse Ox 97 Weight Weight: 222 lb 10.67 oz Body Mass Index (BMI) 34.9 Physical Exam Const alert, oriented x3, no apparent distress and healthy appearing HEENT normocephalic and moist oral mucous membranes Head and Scalp: atraumatic Neck full ROM, no lymphadenopathy, supple and thyroid normal General: trachea midline Lymph Lymphatic: no lymphadenopathy noted Chest inspection of chest normal Resp normal respiratory effort Cardio regular rate GI soft to palpation and non-tender GI Narrative: gravid Inspection: gravid external exam normal Manual OB Exam: estimated gestational size appropriate, presentation cephalic, dilated, effaced and station Extremity normal to inspection General Extremity: Negative for edema Skin no rashes or lesions noted Neuro no focal motor deficits and deep tendon reflexes 2+ bilaterally Motor Exam: strength 5/5 throughout and clonus absent Psych mental status grossly normal Labs
--- NOTE | 2025-04-24 17:50 | PCM.HP.OB ---
HPI - General General Date of Admission: 04/24/25 HPI Narrative KATIE ARAUJO, is a 35 F who presents for IOL secondary to IUGR Maternal Data Information TETO Calculator Estimated Delivery Date Method Current WG Current Estimate 05/13/25 Conception 37w 3d Other Estimates 05/20/25 Ultrasound #1 36w 3d PFSH PFS Medical History (Updated 04/24/25 @ 20:35 by Liz Lee) Oligohydramnios Segmental and somatic dysfunction of lumbar region Segmental dysfunction of thoracic region Segmental dysfunction of lumbar region Acute postoperative anemia due to greater than expected blood loss DIC (disseminated intravascular coagulation) Retained products of conception hemorrhage Vaginal delivery Infertility COVID-19 Recurrent bacterial infection Low-lying placenta Hypothyroid Raynauds syndrome Endometriosis Conceived by in vitro fertilization Home Medications Medication Instructions Recorded Last Taken Type PNV no.63-iron,carbonyl 27 1 cap PO QDAY 10/02/24 04/23/25 20:00 History mg-folic acid 800 mcg-dha 200 mg capsule Allergy/AdvReac Type Severity Reaction Status Date / Time No Known Allergies Allergy Verified 04/24/25 20:22 Family History Father Lung cancer, Onset Age: 42 Mother Lymphoma, Onset Age: 54 Thyroid disorder Surgical History H/O dilation and curettage History of surgery Hx of wisdom tooth extraction Hx of tonsillectomy Hx of laparoscopy Social History adopted: No household members: spouse and children housing: house number of children: 1 current occupational status: employed 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 current occupational exposures/hazards: No pets and animals: Yes pets and animals: dog(s) history of recent travel: No sexually active: Yes Smoking Status: Never smoker alcohol intake: former details: not while substance use type: does not use well-balanced diet: daily or most days caffeine: No eating out: rarely or never during the past year weight has: increased > 10 lbs what type of physical activity do you participate in: walking, yoga and weight training frequency: 3-4 times per week duration: 30-45 minutes/day diego/mosque: None seatbelt use: always do you feel safe at home: Yes 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 Date Name GA/Weeks Outcome Route Bth Weight Gen Labor Lgth Anesthesia Del Locatn Provider FOB 02/02/23 Angelito 39 live - full term 9lbs Female [facility] FlaquitaErnst Zee Visit Details Expected Delivery Route/Plan Labor Preferences- CB/BF classes: no labor support person: Yayo labor intervention preferences: [] pain management options preferred: open to what she requests cut cord/dad catch: yes : yes PP control planned: discussed discussed possible routes of delivery and associated risks: [] special requests: [] Plans Covid status: [] Flu vaccine: employer Tdap vaccine: given Rhogam: NA LARC form signed: yes Problem list reviewed and updated with the most current plan of care details and appropriate orders placed. Relevant counseling for the gestational age provided. Continue routine care and follow up unless otherwise noted in visit notes/problem list details OB Flowsheet Initial Weight: 193 lb Date <del> </del> EGA Weight BP Urine Prot <del> </del> Glucose FHR FuHt Pres Dilation <del> </del> Effaced St Visit Note 10/07/24 <del> </del> 8w 6d 193 lb 8 oz (+8 oz) 121/84 <del> </del> 173 <del> </del> KW- CRL cons with hospital US. 7 days behind IVF implantation and US dating. accepts NIPT. had heavy bleeding over the weekend with clots. KW- CRL cons with hospital US. 7 days behind IVF implantation and US dating. accepts NIPT. had heavy bleeding over the weekend with clots. RTO in 2 weeks 10/21/24 <del> </del> 10w 6d 195 lb 2 oz (+2 lb 2 oz) 115/79 Negative <del> </del> Negative 150 <del> </del> SM- no vb cramping SM- no vb cramping 4mm subchorionic hematoma resolving 11/04/24 <del> </del> 12w 6d 196 lb 4 oz (+3 lb 4 oz) 117/81 Negative <del> </del> Negative 150 <del> </del> KW- some bleeding one day last week x 1 episode- but stopped. none since. Vit B6 and Unisom and Zofran for nausea. US with hospital. 12/05/24 <del> </del> 17w 2d 195 lb 4 oz (+2 lb 4 oz) 116/82 Negative <del> </del> Negative 140 <del> </del> LC- no vb/ctx. feeling flutters. anatomy scheduled. 12/25/24 <del> </del> 20w 1d <del> </del> <del> </del> Triage evaluation for position due to concerns from radiology- MRI performed and normal. 01/06/25 <del> </del> 21w 6d 203 lb 2 oz (+10 lb 2 oz) 111/75 Negative <del> </del> Negative 143 <del> </del> JV- succent. lobe on ultrasound with velamentous insertion of the side and the connecting vessels. has monthly growth scans, echo scheduled. wants CMV testing next glucose test. 01/29/25 <del> </del> 25w 1d 206 lb 3 oz (+13 lb 3 oz) 121/81 Negative <del> </del> Negative 140 <del> </del> SM- no vb lof good fm no regular ctx 02/19/25 <del> </del> 28w 1d 212 lb 8 oz (+19 lb 8 oz) 105/73 Negative <del> </del> Negative 142 28 <del> </del> MH-No VB, LOF. Good Fm. 28 wk labs pending. [facility] 03/05/25 <del> </del> 30w 1d 212 lb (+19 lb) 111/72 <del> </del> 135 30 <del> </del> KW- no vb/lof/ctx. good fm. no concerns today 03/17/25 <del> </del> 31w 6d 215 lb 4 oz (+22 lb 4 oz) 120/80 Negative <del> </del> Negative 147 32 <del> </del> MH-No VB, LOF. Good FM. tdap. 04/02/25 <del> </del> 34w 1d 220 lb (+27 lb) 118/80 Negative <del> </del> Negative 150 33 <del> </del> JV- no lof, vaginal bleeding, or dec fm. long discussion about pp hem and succent. lobe. plan doc only for delivery. if dilated a cm she prefers am induction with muro on black sunday or sunday. 04/17/25 <del> </del> 36w 2d 223 lb 4 oz (+30 lb 4 oz) 126/78 <del> </del> 135 35 <del> </del> KW- no vb/lof/ctx. good fm NST reactive GBS today. declines vag exam 04/24/25 <del> </del> 37w 2d 222 lb 4 oz (+29 lb 4 oz) 128/85 Negative <del> </del> Negative 140 36 <del> </del> SM- no vb lof good fm n oreuglar ctx discussed urine culture results from december gbs pos NST FHR Rate Baby A Baseline: 130 Variability:: Moderate Accelerations:: 15 x 15 Decelerations:: None NST Reactive:: Yes FHR Category:: Category I Uterine Activity:: irregular ROS Constitutional Constitutional: Reports systems reviewed and no addt'l complaints, except as documented Eyes Eyes: Denies change in vision ENT HEENT: Reports systems reviewed and no addt'l complaints, except as documented; Denies headache(s) Cardiovascular Cardiovascular: Reports systems reviewed and no addt'l complaints, except as documented; Denies chest pain or dyspnea Respiratory/Chest Respiratory/Chest: Reports systems reviewed and no addt'l complaints, except as documented Gastrointestinal Gastrointestinal: Reports systems reviewed and no addt'l complaints, except as documented; Denies abdominal pain Genitourinary Genitourinary: Reports systems reviewed and no addt'l complaints, except as documented, contractions Details: present (irregular) and movement Details: present; Denies dysuria or genital lesions Musculoskeletal Musculoskeletal: Reports systems reviewed and no addt'l complaints, except as documented Neurologic Neurologic: Reports systems reviewed and no addt'l complaints, except as documented Endocrine Endocrinology: Reports systems reviewed and no addt'l complaints, except as documented Vital Signs Vital Signs Vital Signs: 04/24/25 17:00 04/24/25 17:00 04/24/25 17:08 Temperature 99.0 F Temperature Source Pulse Rate 110 H Respiratory Rate Blood Pressure 139/90 H BP Systolic 139 BP Diastolic 90 Pulse Ox 04/24/25 17:08 04/24/25 17:08 04/24/25 17:08 Temperature Temperature Source Temporal Pulse Rate Respiratory Rate 18 Blood Pressure BP Systolic BP Diastolic Pulse Ox 97 04/24/25 17:08 04/24/25 17:10 04/24/25 17:10 Temperature 98.9 F Temperature Source Pulse Rate 101 H Respiratory Rate Blood Pressure BP Systolic BP Diastolic Pulse Ox 97 Weight Weight: 222 lb 10.67 oz Body Mass Index (BMI) 34.9 Physical Exam Const alert, oriented x3, no apparent distress and healthy appearing HEENT normocephalic and moist oral mucous membranes Head and Scalp: atraumatic Neck full ROM, no lymphadenopathy, supple and thyroid normal General: trachea midline Lymph Lymphatic: no lymphadenopathy noted Chest inspection of chest normal Resp normal respiratory effort Cardio regular rate GI soft to palpation and non-tender GI Narrative: gravid Inspection: gravid external exam normal Manual OB Exam: estimated gestational size appropriate, presentation cephalic, dilated, effaced and station Extremity normal to inspection General Extremity: Negative for edema Skin no rashes or lesions noted Neuro no focal motor deficits and deep tendon reflexes 2+ bilaterally Motor Exam: strength 5/5 throughout and clonus absent Psych mental status grossly normal Labs Labs Labs: Blood Type O POSITIVE Antibody Screen NEGATIVE Hct, (37-47) 35.1 % L Hgb, (12.0-15.0) 13.1 g/dL Obstetrics Ultrasound Syphilis Total Ab, (Nonreactive) Nonreactive Rubella IgG Antibody, (Nonreactive) REAC Hep Bs Antigen, (Nonreactive) Nonreactive Hepatitis C Antibody, (Nonreactive) Nonreactive Chlamydia DNA ([facility]), (Negative) Negative N.gonorrhoeae DNA ([facility]), (Negative) Negative HIV 1&2 Antibody, (Nonreactive) Nonreactive Glucose 1 Hr 50 gm, (70-140) 117 mg/dL Miscellaneous Test Assessment & Plan (1) GBS (group B streptococcus) UTI complicating : COMMENT: pcn in labor (2) 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 : COMMENT: negative labs (3) Placenta succenturiata: QUALIFIERS: Trimester: third trimester Qualified Code(s): O43.193 - Other malformation of placenta, third trimester COMMENT: DOC only delivery -velamentous cord insertion. Growth US Q4/ok to do WC for cost if issue w [facility] employee. NST weekly with us at 36 wk. (4) Abnormal ultrasound: COMMENT: MRI confirmed intrauterine with one normal placenta. (5) Supervision of high-risk : QUALIFIERS: Trimester: third trimester Qualified Code(s): O09.93 - Supervision of high risk , unspecified, third trimester COMMENT: PRR , TETO 05/13/25 boy PC Angelito Yayo (6) : QUALIFIERS: Weeks of gestation: 37 weeks Qualified Code(s): Z3A.37 - 37 weeks gestation of COMMENT: GBS neg, NIPT low risk, carrier declined. echo(IVF ) and growth US Q4wk. (7) Infertility: COMMENT: IVF transfer 08/26/24 (8) Conceived by in vitro fertilization: COMMENT: transfer 08/26/24, plan echo at 22-24 weeks:nl (9) Oligohydramnios in third trimester: PLAN: Plan Patient presents IOL, plan management for with fb pit. Pain management: plans epidural. GBS pos Management of any complications: none I [facility] and made any clinically relevant updates.
--- OUTSIDE RECORDS SUMMARY | 2025-04-24 17:58 | XMS RPT_ITS | CCD ---
Author Organization [facility]iniSyga Care Team Providers Care Shipyard Painter Name Role Phone RACHNA ALVAREZ Unavailable Unavailable Damon Koch Unavailable Unavailable August HELTON, Damon Unavailable Unavailable Mikala HELTON, Angela Unavailable Unavaila Sonia Baca DO Primary Care Provider [phone] PCP, Pt States None Referring Unavailable Dr. [...] Gomez Attending Provider RAFY Casillas Attending Provider Kathy WHEEL MILL OPERATOR, DAYNA Dumont Attending Provider Shannan Rodriguez Primary Care Provider Shannan Rodriguez Referring Provider Dr. Chris Lazaro Attending Provider LIUDMILA Armstrong Attending Provider [phone] Paola Weeks Attending Provider Dr. Ronni Larkin Attending Provider [phone] Shannan Rodriguez Referring [...] DO SHANNAN VAZQUEZ Primary Care Provider [phone] RAFY Glasgow Referring Provider RAFY Glasgow Other Provider Dr. Neil Wiggins Attending Provider SHANNAN VAZQUEZ DO Primary Care Provider [phone] TAYLOR GOLDBERG, SHANNAN Referring Provider Dosmyra ZHENG, Dr. Valdovinos Attending Provider [phone] Nikko Guerrero MD Emergency Provider Dr. Liv Matta MD Primary Care Provider Nikko uGerrero MD Attending Provider Niya Armstrong CNM Attending Provider [phone] Niya Armstrong CNM Referring Provider Dr. Liv Matta MD Referring Provider Dr. Nat Gomez MD Attending Provider Dr. Nat Gomez MD Referring Provider [phone] SHANNAN VAZQUEZ DO Referring Provider Dosmyra ZHENG, Dr. Valdovinos Attending Provider [phone] Nick Cordon CNM Attending Provider Bharathi Casillas Attending Provider Dr. Paola Weeks DO Attending Provider Joyce Voss DO, Dr. Guevara Referring Provider Joyce Voss DO, Dr. Guevara Other Provider [phone] Bharathi Casillas Referring Provider Paxton HELTON, Dr. Joe Primary Care Provider [phone] Paxton HELTON, Dr. Joe Referring Provider Niya Armstrong CNM Attending Provider [phone] Rosalinda HELTON, Dr. Johns Attending Provider [phone] Julia Dean Attending Provider [phone] Paxton HELTON, Dr. Joe Primary Care Physician Paxton HELTON, Dr. Joe Referring Provider Patricia ZHENG, Dr. Valdovinos Attending Physician [phone] Nick Cordon CNM Attending Physician [phone] Bharathi Casillas Attending Physician Joyce Voss DO, Dr. Guevara Attending Physician Joyce Voss DO, Dr. Guevara Nurse Practitioner Rosalinda HELTON, Dr. Johns Attending Physician Julia Dean Attending Physician [phone] Niya Armstrong CNM Attending Physician [phone] PAOLA NUÑEZ Referring Unavailab PAOLA Quinones Attending Unavailable LIV MATTA Primary Care Unavailable PAOLA NUÑEZ Referring Unavailab АНДРЕЙ Xie Attending Unavailable LIV MATTA Primary Care Unavailable PAOLA NUÑEZ Referring Unavailab LIV Smith Primary Care Unavailable GITA IRVING Attending Unavailable PAOLA NUÑEZ Referring Unavailab le PAXTON, LIV G Primary Care Unavailable GITA IRVING Attending Unavailable PAOLA NUÑEZ Referring Unavailab EVELIO Zarate Attending Unavailable PAXTON, LIV G Primary Care Unavailable JOHANNY ANSARI Attending Unavailable PAXTON, LIV G Primary Care Unavailable REFERRED, SELF Referring Unavailable Paxton, Liv Referring Unavailable Paxton, Liv Primary Care Unavailable Nat Gomez Attending Unavailable [place], Liv Referring Unavailable [place], Liv Primary Care Unavailable KathyJulia dukes NP Attending Unavailable [place], Liv Referring Unavailable [place], Liv Primary Care Unavailable Paola Weeks Attending Unavailabl e Paxton, Liv Referring Unavailable Niya Armstrong Attending Unavailable Paxton, Liv Primary Care Unavailable Paola Weeks Attending Unavailabl e Paxton, Liv Primary Care Unavailable aPola Weeks Referring UnavailNiya Deluca Attending Unavailable Paxton, Liv Primary Care Unavailable Paxton, Liv Referring Unavailable [place], Liv Primary Care Unavailable Paola Weeks Attending UnavailAruna Obrien Attending Unavailable [place], Liv Referring Unavailable [place], Liv Primary Care Unavailable Paola Weeks Consulting UnavailPaola Lopez Attending Unavailabl e [place], Liv Primary Care Unavailable Paola Weeks Referring Unavailabl Aruna Solomon Attending Unavailable [place], Liv Referring Unavailable Paxton, Liv Primary Care Unavailable Nick Cordon Attending Unavailable [place], Liv Referring Unavailable Paxton, Liv Primary Care Unavailable [place], Liv Referring Unavailable Niya Armstrong Attending Unavailable [place], Liv Primary Care Unavailable KathyJulia dukes NP Attending Unavailable [place], Liv Referring Unavailable Paxton, Liv Primary Care Unavailable Paxton, Liv Referring Unavailable [place], Liv Primary Care Unavailable Paola Weeks Attending Unavailabl e Paxton, Liv Primary Care Unavailable Paola Weeks Attending Unavailabl Paola Guzman Referring Unavailabl Niya Puckett Referring Unavailable Niya Armstrong Attending Unavailable Paxton, Liv Primary Care Unavailable Paxton, Liv Referring Unavailable Niya Armstrong Attending Unavailable [place], Liv Primary Care Unavailable Paxton, Liv Referring Unavailable Nat Gomez Attending Unavailable [place], Liv Primary Care Unavailable Bharathi Moreno Attending Unavailable [place], Liv Primary Care Unavailable Paxton, Liv Referring Unavailable Nat Gomez Attending Unavailable Nat Gomez Referring Unavailable Paxton, Liv Primary Care Unavailable Bharathi Moreno Attending Unavailable Bharathi Moreno Referring Unavailable [place], Liv Primary Care Unavailable Nikko Guerrero Attending Unavailable Paxton, Liv Primary Care Unavailable Aruna Gomez Attending Unavailable Paxton, Liv Referring Unavailable Paxton, Liv Primary Care Unavailable Bharathi Moreno Attending Unavailable Paxton, Liv Referring Unavailable Paxton, Liv Primary Care Unavailable Aruna Gomez Attending Unavailable Paxton, Liv Referring Unavailable Paxton, Liv Primary Care Unavailable [place], Liv Attending Unavailable VAZQUEZ, SHANNAN Primary Care Unavailable VAZQUEZSHANNAN Referring Unavailable DosAruna renteria Attending Unavailable VAZQUEZ, SHANNAN Primary Care Unavailable VAZQUEZ, SHANNAN Referring Unavailable Niya Armstrong Attending Unavailable VAZQUEZ, SHANNAN Referring Unavailable [place], Liv Primary Care Unavailable Allergies Allergy Classification Reported Allergen(s) Allergy Type Date of Onset Reaction(s) Facility (1 source) Seasonal allergy; Translations: [SEASONAL ALLERGIES] Propensity to adverse reactions (disorder) [facility] Repository (2 sources) Other Allergy to substance 6 [facility] Medications Current Medications Medication Drug Class(es) Dates Sig (Normalized) Sig (Original) acetaminophen 500 mg oral tablet (3 sources) Start: 05-27-2021 take 2 tablets by mouth every six hours acetaminophen (TYLENOL) 500 MG tablet Take 2 tablets by mouth every 6 hours 540 tablet 1 05/27/2021 Active Start: 12-17-2020 take 2 tablets by mo ut every six hours as needed for pain [...] daily. 14.7 g 1 03/15/2023 03/14/2024 Active ibuprofen 600 mg oral tablet (3 sources) Nonsteroidal Anti-inflammatory Drug Start: 05-27-2021 take 1 tablet by mouth every six hours ibuprofen (ADVIL;MOTRIN) 600 MG tablet Take 1 tablet by mouth every 6 hours 40 tablet 0 05/27/2021 Active Start: 12-17-2020 take 1 tablet by augusta th every six hours ibuprofen (ADVIL;MOTRIN) 600 MG tablet Take 600 mg by mouth every 6 hours 0 12/17/2020 Active montelukast 10 mg oral tablet (1 source) [...] mouth daily 30 tablet 3 03/14/2021 Active Dorsey-3 Fatty Acids (FISH OIL) 500 MG CAPS (1 source) Dorsey-3 Fatty Acids (FISH OIL) 500 MG CAPS Take by mouth daily 0 Active Pnv No.63-Iron,Carbonyl -Fa-Dha 27 mg iron- 800 mcg-200 mg capsule (18 sources) Start: 10-02-2024 Pnv No.63-Iron,Carbony l-Fa-Dha 27 mg iron- 800 mcg-200 mg capsule Active 1 NMA PO daily October 02, 2024 12:00am Complies with drug therapy Start: 10-02-2024 Pnv No.63-Iron ,Jnrqdlfq-Aq-Rok 27 mg iron- 800 mcg-200 mg capsule Active 1 NMA PO daily October 02, 2024 12:00am Vit-Fe Fumarate-FA ( VITAMIN PO) (3 sources) Vit-Fe Fumarate-FA ( VITAMIN PO) Probiotic Product (PROBIOTIC-10 PO) (3 sources) Probiotic Produc t (PROBIOTIC-10 PO) simethicone 80 mg chewable tablet (1 source) Start: 05-27-20 take 1 tablet by mouth four times daily as needed simethicone (MYLICON) 80 MG chewable tablet Take 1 tablet by mouth 4 times daily as needed for Flatulence 180 tablet 3 05/27/2021 Active 1000 ml sodium chloride 9 mg/ml injection (1 source) Start: 04-06-20 0.9 % sodium chloride infusion tretinoin 0.25 mg/ml topical cream (3 sources) Retinoid Start: 01-15-20 tretinoin (RETIN-A) 0.025 % cream APPLY A PEA SIZED AMOUNT TO AFFECTED AREAS OF FACE NIGHTLY 0 01/14/2021 Active vancomycin 250 mg oral capsule (7 sources) Glycopeptide Antibacterial Start: 01-06-20 25 take 1 capsule by mouth every eight hours Vancomycin 250 mg capsule Active 250 mg PO EVERY 8 HOURS 21 0 January 05, 2025 12:00am Complies with drug therapy vitamin B12 (3 sources) Vitamin B12 Cyanocobalamin (VITAMIN B 12 PO) Completed/Discontinued Medications Medication Drug Class(es) Dates Sig (Normalized) Sig (Original) [id number] 200 actuat albuterol 0.09 mg/actuat metered dose [...] 2023 12:00am amoxicillin 500 mg oral tablet (18 sources) Penicillin-class Antibacterial Start: 03-28-2024 End: 05-01-2024 take 1 tablet by mouth three times daily Amoxicillin 500 mg tablet Discontinued 500 mg PO THREE TIMES A DAY 30 0 March 28, 2024 12:00am May 01, 2024 3:27pm azithromycin 250 mg oral tablet (20 sources) Macrolide Antimicrobial Start: 12-11-2024 End: 12-25-2024 take 2-5 tablets by mouth once daily Azithromycin 250 mg tablet Discontinued 0 PO .COMPLEX 6 0 December 11, 2024 12:00am December 25, 2024 6:47pm take 500 mg today (day 1), then 250 mg for 4 days (days 2-5) PO Start: 08-22-2022 End: 09-26-2022 take 2-5 tablets by mouth once daily Azithromycin 250 mg tablet Discontinued 0 PO .COMPLEX 6 0 August 22, 2022 12:00am September 26, 2022 10:03am take 500 mg today (day 1), then 250 mg for 4 days (days 2-5) PO cholecalciferol 0.05 mg oral capsule (20 sources) Vitamin D Start: 07-11-2022 End: 08-08-2022 take 1 capsule by mouth once daily Cholecalciferol (Vitamin D3) 50 mcg (2,000 unit) capsule Discontinued 50 ug PO DAILY July 11, 2022 1:00am August 08, 2022 11:44am Cholecalciferol (VITAMIN D3 PO) Desogestrel-Ethinyl Estradiol (18 sources) Progestin, Estrogen Start: 03-27-2024 End: 07-22-2024 [...] off 5 days; repeat cycle estrogens, conjugated (intermediate) 25 mg injection (20 sources) Estrogen Start: 10-07-2024 End: 10-21-2024 Conjugated [...] (65 mg iron)-25 mg tablet extended release (20 sources) Start: 02-27-2023 End: 05-01-2024 take 1 [...] Start: 02-27-2023 take 1 tablet by augusta once daily Ferrous Fumarate-Vitamin C (Miladys-Sequels (Iron-Vit [...] 12:00am ferrous sulfate 325 mg oral tablet (20 sources) Start: 03-16-2023 End: 03-16-2023 take 1 [...] DAILY Refills: 0 Start : 18-Apr-2016 Active ipratropium bromide 0.021 mg/actuat metered dose nasal spray (3 sources) Anticholinergic Start: 12-11-2024 End: 12-25-2024 Ipratropium [place] 21 mcg (0.03 %) spray,non-aerosol Discontinued 2 NMA INTRANASAL 2 to 3 times per day as needed for postnasal drainage December 11, 2024 12:00am December 25, 2024 6:47pm administer into each nostril Ipratropium [place] 21 mcg (0.03 %) spray,non-aerosol (7 sources) Start: 12-11-2024 End: 12-25-2024 Ipratropium [place] 21 mcg (0.03 %) spray,non-aerosol Discontinued 2 NMA INTRANASAL 2 to 3 times per day as needed for postnasal drainage December 11, 2024 12:00am December 25, 2024 6:47pm administer into each nostril Start: 12-11-2024 Ipratropium Br omide 21 mcg (0.03 %) spray,non-aerosol Active 2 NMA INTRANASAL 2 to 3 times per day as needed for postnasal drainage December 11, 2024 12:00am administer into each nostril Lactobacillus Combination No.4 (Probiotic) 3 billion cell capsule (20 sources) Start: 03-16-2023 End: 05-01-2024 take 3 [...] mcg tablet Discontinued 25 ug PO DAILY September 26, 2022 10:44am September 26, 2022 11:04am Start: 09-26-2022 End: 03-27-2024 take 1 tablet by mouth once daily Levothyroxine 25 mcg tablet Discontinued 25 ug PO DAILY September 26, 2022 12:00am March 27, 2024 [...] Refills: 0 Start : 18-Apr-2016 Active Multivit 58-Ilny-Blighw 1-Dha (Pnv-Dha) 27 mg iron-1 mg -300 mg capsule (20 sources) Start: 07-06-2022 End: 05-01-2024 Multivit 61-Lnuv-Zkvtuz 1-Dha (Pnv-Dha) 27 mg iron-1 mg -300 mg capsule Discontinued 1 NMA PO DAILY July 06, 2022 1:00am May 01, 2024 3:27pm Start: 07-06-2022 take 1 capsule by mo uth once daily Multivit 20-Ffhb-Xamcfi 1-Dha (Pnv-Dha) 27 mg iron-1 mg -300 mg capsule Active 1 CAP PO DAILY July 06, 2022 12:00am Start: 07-06-2022 take 1 capsule by mo uth once daily Multivit 17-Mmtf-Lihwfv 1-Dha (Pnv-Dha) 27 mg iron-1 mg -300 mg capsule Active 1 CAP PO DAILY July 06, 2022 1:00am Start: 07-06-2022 Multivit 47-Ir on-Folate 1-Dha (Pnv-Dha) 27 mg iron-1 mg -300 mg capsule Active CAP PO July 06, 2022 1:00am Start: 07-06-2022 Multivit 47-Ir on-Folate 1-Dha (Pnv-Dha) 27 mg iron-1 mg -300 mg capsule Active CAP PO July 06, 2022 12:00am Multivitamin tablet (18 sources) Start: 05-01-2024 End: 10-02-2024 Multivitamin tablet Discontinued 1 {tbl} PO daily May 01, 2024 1:00am October 02, 2024 1:06pm Dorsey 3-Omf-Zfo-Fish Oil (Fi sh Oil) 60-90-500 mg capsule (20 sources) Start: 07-06-2022 End: 08-08-2022 Dorsey 1-Swp-Dry-Fish Oil (Fi sh Oil) 60-90-500 mg capsule Discontinued 1 NMA PO DAILY July 06, 2022 1:00am August 08, 2022 11:45am Start: 07-06-2022 End: 08-08-2022 take 1 capsule by mouth once daily Dorsey 6-Qrn-Xnu-Fish Oil (Fish Oil) 60-90-500 mg capsule Discontinued 1 CAP PO DAILY July 06, 2022 12:00am August 08, 2022 10:45am Start: 07-06-2022 End: 08-08-2022 take 1 capsule by mouth once daily Dorsey 2-Lvh-Nvx-Fish Oil (Fish Oil) 60-90-500 mg capsule Discontinued 1 CAP PO DAILY July 06, 2022 1:00am August 08, 2022 11:45am Start: 07-06-2022 take 1 capsule by [facility] once daily Dorsey 2-Kvo-Urg-Fish Oil (Fish Oil) 60-90-500 mg capsule Active 1 CAP PO DAILY July 06, 2022 12:00am ondansetron 4 mg disintegrating oral tablet (15 sources) Serotonin-3 Receptor Antagonist Start: 11-04-2024 End: 12-25-2024 take 1 tablet by mouth every six hours as needed for nausea and vomiting Ondansetron 4 mg tablet,disintegrating Discontinued 4 mg PO EVERY 6 HOURS as needed for nausea and vomiting 30 4 November 04, 2024 12:00am December 25, 2024 6:47pm Nausea and vomiting during Vomiting of , unspecified progesterone 50 mg/ml injectable solution (20 sources) [...] 2022 11:45am tobramycin 3 mg/ml ophthalmic solution (18 sources) Aminoglycoside Antibacterial Start: 03-28-2024 End: 05-01-2024 Tobramycin 0.3 % drops Discontinued 1 NMA OPHTHALMIC Q2H 5 0 March 28, 2024 12:00am May 01, 2024 3:27pm to affected eye while awake first 24 hours, then 3x/day on days 2-5 Turmeric extract (20 sources) Start: 07-06-2022 End: 08-22-2022 Turmeric (Bulk) [...] bronchitis, unspecified] 08-29-2022 Episodic Acute posthemorrhagic anemia (20 sources) Anemia following acute postoperative blood loss; Translations: [Acute posthemorrhagic anemia] 02-26-2023 Episodic Comment on above: transfused 1 unit OR BCs and 1 unit FFP, will give 2nd unti PRBC Administrative/social admission (1 source) Occupational exposure to unspecified risk factor; Translations: [Occupational exposure to unspecified risk factor] Onset: 02-19-2025 Episodic Bacterial infection; unspecified site (20 sources) Recurrent [...] Translations: [Endometriosis, unspecified] Onset: 01-31-2021 01-31-2021 Chronic Genitourinary symptoms and ill-defined conditions (20 sources) Dysuria; Translations: [Dysuria] Onset: 01-06-2025 01-01-2025 Episodic Immunizations and screening for infectious disease (5 sources) Anti-nuclear factor positive; Translations: [Other and unspecified nonspecific immunological findings] Onset: 03-15-2023 03-15-2023 Episodic Lymphadenitis (20 sources) Lymphadenopathy; Translations: [Generalized enlarged lymph nodes] 11-29-2022 Episodic Comment on above: suspected. right mukund in- would like to try warm compresses and epsom salt baths before further testing. ultrasound ordered on 11/29 Menstrual disorders (1 source) Excessive and frequent menstruation with irregular cycle Onset: 09-28-2017 Chronic Other bone disease and musculoskeletal deformities (20 sources) Segmental and somatic dysfunction; Translations: [Segmental and somatic dysfunction of lumbar region] 10-02-2024 Episodic Other bone disease and musculoskeletal deformities (20 sources) Lumbar segmental dysfunction ; Translations: [Segmental and somatic dysfunction of lumbar region] 10-02-2024 Episodic Other bone disease and musculoskeletal deformities (20 sources) Thoracic segmental dysfunction; Translations: [Segmental and somatic dysfunction of thoracic region] 10-02-2024 Episodic Other bone disease and musculoskeletal deformities (1 source) Segmental and somatic dysfunction of pelvic region; Translations: [Segmental and somatic dysfunction of pelvic region] Onset: 03-05-2025 Episodic Other bone disease and musculoskeletal deformities (1 source) Segmental and somatic dysfunction of lumbar region; Translations: [Segmental and somatic dysfunction of lumbar region] Onset: 03-05-2025 Episodic Other bone disease and musculoskeletal deformities (1 source) Segmental and somatic dysfunction of thoracic region; Translations: [Segmental and somatic dysfunction of thoracic region] Onset: 03-05-2025 Episodic Other circulatory disease (1 source) Raynaud's phenomenon; Translations: [Raynaud's syndrome] Chronic Other circulatory disease (20 sources) Raynaud's disease; Translations: [Raynaud's syndrome without gangrene] 07-06-2022 Chronic Other circulatory disease (1 source) Raynaud's syndrome without gangrene; Translations: [Raynaud's syndrome] 07-11-2022 Chronic Other complications of ; puerperium affecting management of mother (20 sources) hemorrhage; Translations: [Other immediate hemorrhage] 02-25-2023 [...] Yayo PRR , TETO 02/13/23 , Yayo PRR , TETO 5 boy PC Angelito Yayo Other complications of (20 sources) Supervision of high risk , unspecified, unspecified trimester; Translations: [Supervision of unspecified high-risk ] Onset: 03-06-2025 07-11-2022 Episodic Other complications of (18 sources) Retained products of conception 10-02-2024 Episodic Comment on above: 3 weeks PP, s/p suct ion d and c Other complications of (20 sources) History of hemorrhage; Translations: [Supervision of with other poor reproductive or obstetric history, unspecified trimester] 10-02-2024 Episodic Comment on above: retained products of conception 3wk PP s/p suction D and C Other complications of (20 sources) ultrasound scan abnormal; Translations: [Abnormal ultrasonic finding on screening of mother] 12-31-2024 Episodic Comment on above: MRI confirmed intrau terine with one normal placenta. Other complications of (20 sources) Placenta succenturiata; Translations: [Other malformation of placenta, unspecified trimester] 01-06-2025 Episodic Comment on above: velamentous cord ins ertion. Growth US Q4wk velamentous cord ins ertion. Growth US Q4wk. either BPP with MFM or NST weekly with us at 36 wk. Other complications of (7 sources) Other current conditions classifiable elsewhere of mother, unspecified as to episode of care or not applicable; Translations: [Cytomegalovirus exposure affecting ] 02-22-2025 Episodic Comment on above: negative labs Other complications of (2 sources) Abnormal ultrasonic finding on screening of mother; Translations: [Abnormal ultrasonic finding on screening of mother] Onset: 03-03-2025 Episodic Other complications of (1 source) Supervision of with other poor reproductive or obstetric history, unspecified trimester; Translations: [Supervision of with other poor reproductive or obstetric history, unspecified trimester] Onset: 04-17-2025 Episodic Other complications of (1 source) Other malformation of placenta, third trimester; Translations: [Other malformation of placenta, third trimester] Onset: 04-17-2025 Episodic Other complications of (1 source) Supervision of high risk , unspecified, third trimester; Translations: [Supervision of high risk , unspecified, third trimester] Onset: 04-17-2025 Episodic Other complications of (1 source) Other malformation of placenta, unspecified trimester; Translations: [Other malformation of placenta, unspecified trimester] Onset: 01-29-2025 Episodic Other female genital disorders (1 source) [...] declines NIPT low risk, moncho er declines NIPT low risk, moncho er declined. echo(IVF ) and growth US Q4wk. Other screening for suspected conditions (not mental disorders or infectious disease) (1 source) Thyroid function tests abnormal; Translations: [Other abnormal blood chemistry] Episodic Other upper respiratory disease (1 source) Allergic [...] 08/26/24, pl an echo at 22-24 weeks transfer 08/26/24, pl an echo at 22-24 weeks:nl Residual codes; unclassified (20 sources) Other specified health status; Translations: [Other specified conditions influencing health status] Onset: 04-17-2025 07-11-2022 Episodic Residual codes; unclassified (20 sources) Infertile 10-02-2024 Episodic Comment on above: IVF transfer 08/26/24 Residual codes; unclassified (1 source) 36 weeks gestation of ; Translations: [36 weeks gestation of ] Onset: 04-17-2025 Episodic Residual codes; unclassified (1 source) 30 weeks gestation of ; Translations: [30 weeks gestation of ] Onset: 03-05-2025 Episodic Residual codes; unclassified (1 source) 25 weeks gestation of ; Translations: [25 weeks gestation of ] Onset: 01-29-2025 Episodic Thyroid disorders (20 sources) Hypothyroidism; Translations: [Unspecified acquired hypothyroidism] Onset: 04-20-2022 07-11-2022 Chronic Comment on above: patient took synthro id during fertility treatments. reports TSH was never abnormal, but wanted it optimized. Unclassified (1 source) Unknown / UNK(Unknown) Onset: 09-28-2017 Unclassified (7 sources) Retained products of conception; Translations: [Retained products of conception] 02-25-2023 Unclassified (1 source) Other specified diseases and conditions complicating ; Translations: [Other specified diseases and conditions complicating ] Onset: 04-17-2025 Urinary tract infections (1 source) Acute urinary tract infection; Translations: [Urinary tract infection, site not specified] Episodic Viral infection (20 sources) Disease caused by 2019-nCoV; Translations: [COVID-19] 01-23-2023 Episodic Comment on above: Growth US 01/22:94% Past or Other Problems Problem Classification Problem Date Documented Date Episodic/Chronic Hemorrhage during ; abruptio placenta; placenta previa (20 sources) Low lying placenta; Translations: [Low lying placenta NOS or without hemorrhage, unspecified trimester] Onset: 10-07-2024 11-29-2022 Episodic Comment on above: US @ 28 weeks resolv ed Other aftercare (1 source) Other intermediate (current) drug therapy; 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] Onset: 04-20-2022 Episodic Other aftercare (1 source) 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) use of hormonal contraceptives; Translations: [[facility] HORMONAL CONTRACEPTIVES] Onset: 04-20-2022 Episodic Other circulatory disease (1 source) Other specified symptoms and signs involving the circulatory and respiratory systems; Translations: [Other specified symptoms and signs involving the circulatory and respiratory systems] Onset: 10-07-2024 Episodic Other complications of (1 source) Vomiting of , unspecified; Translations: [Vomiting of , unspecified] Onset: 11-04-2024 Episodic Other female genital disorders (2 sources) Polyp of corpus uteri; Translations: [POLYP OF CORPUS UTERI] Onset: 04-20-2022 Episodic Other upper respiratory disease (2 sources) Acute bronchospasm; Translations: [Acute bronchospasm] Onset: 03-15-2023 Episodic Residual codes; unclassified (3 sources) Postoperative state; Translations: [Other specified postprocedural states] Onset: 05-26-2021 05-26-2021 Episodic Residual codes; unclassified (1 source) 12 weeks [...] weeks gestation of ] Onset: 10-07-2024 Episodic NEGATED: Highlighted row has not occurred!Residual codes; unclassified (1 source) Disease Episodic Results Test Name Value Interpretation Reference Range Facility Rule out Beta Strep (Grp. B) on 04-21-2025 RAFAELA Group B Beta Streptococcus is not isolated. Normal [facility] Comment on above: Performed By: #### M [phone] #### [facility] Laboratory [address] [place], [place], [id number] Deputy Controller Office Visit Reporton 04-17-2025 Deputy Controller Office Visit Report [facility] [address] [place] [address], [address] [place] [address] OFFICE VISIT Date of Service: 04/17/25 MR#: [id number] Acct: [id number] Name: KATIE ROBB Rep #: [id number] : 1990 Provider: LIUDMILA Landers ams Age/Sex: 35/F Location: [facility] Status: Signed Intake Vital Signs 02/19/25 15:12 04/02/25 14:29 04/17/25 14:29 04/17/25 14:30 Height 5 ft 7 in 5 ft 7 in 5 ft 7 in 5 ft 7 in Weight: 223 lb 4 oz BMI 34.9 BP 126/78 H Intake Visit Reasons: 36wk2d ob/nst [employer]member Required: No Is patient in pain?: No Allergies No Known Allergies Allergy (Verified 04/17/25 14:29) Medications ???Medication ???Instructions ???Recorded ???Confirmed ???Type PNV no.63-iron,carbonyl 27 1 cap PO QDAY 10/02/24 04/17/25 Hi story mg-folic acid 800 mcg-dha 200 mg capsule Last Menstrual Period: 05/03/22 Zika: Zika virus screening: Negative : No PFSH PFSH Medical History Segmental and somatic dysfunction [...] 3-4 times per week duration: 30-45 minutes/day diego/druze: None seatbelt use: always do you feel [...] 39 live - full term 9lbs Female [facility] K. Wi lliams Yayo HPI 36wk2d ob/nst Details: KATIE ORBB is a 35 year old who presents for routine OB visit. OB Visit TETO Calculator Estimated Delivery Date Method Current WG Current Estimate 05/13/25 Conception 36w 2d Other Estimates 05/20/25 Ultrasound #1 35w 2d Expected Delivery Route/Plan Labor Preferences- CB/BF classes: no labor support person: Yayo labor intervention preferences: [] pain management options preferred: open to what she requests cut cord/dad catch: yes : yes PP control planned: discussed discussed possible routes of delivery and associated risks: [] special requests: [] Specific Issue/Plans Covid status: [] Flu vaccine: employer Tdap vaccine: given Rhogam: NA LARC form signed: yes Problem list reviewed and updated with the [...] -???-???-???-???-???-??? - 173 -???-???-???-???-???-??? -???-???-???-???-???-??? - KW- (more content not included)... Normal [facility] Deputy Controller Office Visit Reporton 04-02-2025 Deputy Controller Office Visit Report [facility] [address], [facility] [address] [place] [address] OFFICE VISIT Date of Service: 04/02/25 MR#: [id number] Acct: [id number] Name: KATIE ROBB Rep #: [id number] : 1990 Provider: Dr. Paola Miranda DO Age/Sex: 35/F Location[place] [facility] Status: Signed Intake Vital Signs 02/19/25 15:12 04/02/25 14:28 04/02/25 14:29 Height 5 ft 7 in 5 ft 7 in 5 ft 7 in Weight: 220 lb BMI 34.4 BP 118/80 Intake Visit Reasons: 34wk1d ob [employer] Crewmember Required: No Is patient in pain?: No Allergies No Known Allergies Allergy (Verified 04/02/25 14:27) Medications ???Medication ???Instructions ???Recorded ???Confirmed ???Type PNV no.63-iron,carbonyl 27 1 cap PO QDAY 10/02/24 04/02/25 Hi story mg-folic acid 800 mcg-dha 200 mg capsule Last Menstrual Period: 05/03/22 Zika: Zika virus screening: Negative : No PFSH PFSH Medical History Segmental and somatic dysfunction [...] 3-4 times per week duration: 30-45 minutes/day diego/druze: None seatbelt use: always do you feel [...] 39 live - full term 9lbs Female [facility] K. Wi llroberta Zee HPI 34wk1d ob Details: KATIE ROBB is a 35 year old who presents for routine OB visit. OB Visit TETO Calculator Estimated Delivery Date Method Current WG Current Estimate 05/13/25 Conception 34w 1d Other Estimates 05/20/25 Ultrasound #1 33w 1d Expected Delivery Route/Plan Labor Preferences- CB/BF classes: no labor support person: Yayo labor intervention preferences: [] pain management options preferred: open to what she requests cut cord/dad catch: yes : yes PP control planned: discussed discussed possible routes of delivery and associated risks: [] special requests: [] Specific Issue/Plans Covid status: [] Flu vaccine: employer Tdap vaccine: given Rhogam: NA LARC form signed: yes Problem list reviewed and updated with the [...] 173 -???-???-???-???-???-??? -???-???-???-???-???-??? - KW- CRL cons with hospital US. 7 d (more content not included)... Normal [facility] Deputy Controller Office Visit Reporton 03-17-2025 Deputy Controller Office Visit Report [facility] [address], [address] [place] [address] OFFICE VISIT Date of Service: 03/17/25 MR#: [id number] Acct: [id number] Name: KATIE ROBB Rep #: [id number] : 1990 Provider: DAYNA stanford Age/Sex: 35/F Location: [facility] Status: Signed Intake Vital Signs 02/19/25 15:12 03/05/25 15:15 03/17/25 10:21 Height 5 ft 7 in 5 ft 7 in 5 ft 7 in Weight: 215 lb 4 oz BMI 33.7 BP 120/80 Intake Visit Reasons: 32wk1d ob [employer] Crewmember Required: No Is patient in pain?: No Allergies No Known Allergies Allergy (Verified 03/17/25 10:22) Medications ???Medication ???Instructions ???Recorded ???Confirmed ???Type PNV no.63-iron,carbonyl 27 1 cap PO QDAY 10/02/24 03/17/25 Hi story mg-folic acid 800 mcg-dha 200 mg capsule vancomycin 250 mg capsule 250 mg PO Q8 #21 caps 01/05/2501/02 Rx Last Menstrual Period: 05/03/22 Zika: Zika virus screening: Negative : No PFSH PFSH Medical History Segmental and somatic dysfunction [...] 3-4 times per week duration: 30-45 minutes/day diego/druze: None seatbelt use: always do you feel [...] 39 live - full term 9lbs Female [facility] K. Co cici Zee HPI 32wk1d ob Details: KATIE ROBB is a 35 year old who presents for routine OB visit. OB Visit TETO Calculator Estimated Delivery Date Method Current WG Current Estimate 05/13/25 Conception 31w 6d Other Estimates 05/20/25 Ultrasound #1 30w 6d Expected Delivery Route/Plan Labor Preferences- CB/BF classes: no labor support person: Yayo labor intervention preferences: [] pain management options preferred: open to what she requests cut cord/dad catch: yes : yes PP control planned: discussed discussed possible routes of delivery and associated risks: [] special requests: [] Specific Issue/Plans Covid status: [] Flu vaccine: employer Tdap vaccine: given Rhogam: NA LARC form signed: yes Problem list reviewed and updated with the [...] (+8 oz) 121/84 -???-???-???-???-???-??? -???-???-???-???-???-??? - 173 -???-???-??? (more content not included)... Normal [facility] Deputy Controller Office Visit Reporton 03-05-2025 Deputy Controller Office Visit Report [facility] [address], [address] [place] [address] OFFICE VISIT Date of Service: 03/05/25 MR#: [id number] Acct: [id number] Name: KATIE ROBB Rep #: [id number] : 1990 Provider: LIUDMILA Landers ams Age/Sex: 35/F Location: [facility] Status: Signed Intake Vital Signs 01/06/25 14:11 02/19/25 15:12 03/05/25 15:08 03/05/25 15:15 Height 5 ft 7 in 5 ft 7 in 5 ft 7 in 5 ft 7 in Weight: 212 lb BMI 33.2 BP 111/72 Intake Visit Reasons: 30wk ob [employer] Crewmember Required: No Is patient in pain?: No Allergies No Known Allergies Allergy (Verified 03/05/25 15:08) Medications ???Medication ???Instructions ???Recorded ???Confirmed ???Type PNV no.63-iron,carbonyl 27 1 cap PO QDAY 10/02/24 03/05/25 Hi story mg-folic acid 800 mcg-dha 200 mg capsule vancomycin 250 mg capsule 250 mg PO Q8 #21 caps 01/05/25 Rx Last Menstrual Period: 05/03/22 Zika: Zika virus screening: Negative : Yes Have you fallen in the past year?: No PFSH PFSH Medical History Segmental and somatic dysfunction [...] 3-4 times per week duration: 30-45 minutes/day diego/druze: None seatbelt use: always do you feel [...] Female [facility] K[employer] Wi lliams Yayo HPI 30wk ob Details: KATIE ROBB is a 35 year old who presents for routine OB visit. OB Visit TETO Calculator Estimated Delivery Date Method Current WG Current Estimate 05/13/25 Conception 30w 1d Other Estimates 05/20/25 Ultrasound #1 29w 1d Expected Delivery Route/Plan Labor Preferences- CB/BF classes: no labor support person: Yayo labor intervention preferences: [] pain management options preferred: open to what she requests cut cord/dad catch: yes : yes PP control planned: discussed discussed possible routes of delivery and associated risks: [] special requests: [] Specific Issue/Plans Covid status: [] Flu vaccine: [] Tdap vaccine: [] Rhogam: NA LARC form signed: yes Problem list reviewed and updated with the [...] 193 lb 8 oz (+8 oz) 121/84 -???-???-???-???-???- (more content not included)... Normal [facility] CMV Acute Antibody IgMon CMV Ab, IgM < 30.0 Normal 0.0-29.9 [facility] Comment on above: Result Comment: Nega tive <30.0 Equivocal 30.0 - 34.9 Positive >34.9 A positive result is generally indicative of acute infection, reactivation or persistent IgM production. Performed at: [facility] [address] [id number] Toll Settlement Clerk: Robert Gonzalez PhD, Phone: [phone] Performed By: #### L 3400.1500, T3400.7261 ####[facility] [address] [place], [address] CMV Antibody IgGon CMV AB IgG < 0.60 Normal 0.00-0.59 [facility] Comment on above: Result Comment: Nega tive <0.60 Equivocal 0.60 - 0.69 Positive >0.69 Performed By: #### L 3400.1500, [id number] ####[facility] [address] [place], [place], [phone] Absolute lymphocyte countOrd ered By: Paola Voss on 02-19-2025 Lymphocytes Auto (Unsp spec) [#/Vol] 2.17 10*3/uL 0.83-4.51 [facility] Absolute neutrophil countOrd ered By: Paola Voss on 02-19-2025 Neutrophils (Bld) [#/Vol] 9.4 10*3/uL High 2.0-7.7 [facility] Automated lymphocyte count a s percentage of total leukocytesOrdered By: Paola Voss on 02-19-2025 Lymphocytes/100 WBC Auto (Unsp spec) 16.1 % Low 19-41 [facility] Basophil percentageOrdered B y: Paola Voss on 02-19-2025 Basophils/100 WBC (Bld) 0.7 % 0-1 [facility] CBC W/Diff, Automatedon 02-09 Absolute Lymph 2.17 X10 3/uL Normal 0.83-4.51 [facility] Comment on above: Performed By: #### L 3890.6006, L501.0250, L509.8002, L100.0100 ####[facility] [address] [place], [address] Absolute Neut 9.4 X10 3/uL High 2.0-7.7 [facility] Comment on above: Performed By: #### L 3890.6006, L501.0250, L509.8002, L100.0100 ####[facility] [address] [place], [address] Basophils/100 WBC (Bld) 0.7 % Normal 0-1 [facility] Comment on above: Performed By: #### L 3890.6006, L501.0250, L509.8002, L100.0100 ####[facility] [address] [place], [address] Eosinophils/100 WBC (Bld) 4.2 % Normal 0-5 [facility] Comment on above: Performed By: #### L 3890.6006, L501.0250, L509.8002, L100.0100 ####[facility] [address] [place], [address] Erythrocyte distribution width (RBC) [Ratio] 14.3 % Normal 11.6-14.6 [facility] Comment on above: Performed By: #### L 3890.6006, L501.0250, L509.8002, L100.0100 ####[facility] [address] [place], [address] Hematocrit (Bld) [Volume fraction] 34.8 % Low 37-47 [facility] Comment on above: Performed By: #### L 3890.6006, L501.0250, L509.8002, L100.0100 ####[facility] [address] [place], [address] Hemoglobin (Bld) [Mass/Vol] 12.6 g/dL Normal 12.0-15.0 [facility] Comment on above: Performed By: #### L 3890.6006, L501.0250, L509.8002, L100.0100 ####[facility] [address] [place], [address] IG% 1.600 High 0.0-0.9 [facility] Comment on above: Result Comment: IG% - Immature Granulocytes (promyelocytes, myelocytes and metamyelocytes) > 1% indicates that a LEFT SHIFT is Present. Performed By: #### L 3890.6006, L501.0250, L509.8002, L100.0100 ####[facility] [address] [place], [address] Lymphocytes/100 WBC (Bld) 16.1 % Low 19-41 [facility] Comment on above: Performed By: #### L 3890.6006, L501.0250, L509.8002, L100.0100 ####[facility] [address] [place], [address] MCH (RBC) [Entitic mass] 33.5 pg High 27.0-32.0 [facility] Comment on above: Performed By: #### L 3890.6006, L501.0250, L509.8002, L100.0100 ####[facility] [address] [place], [address] MCHC (RBC) [Mass/Vol] 36.2 g/dL High 32-36 [facility] Comment on above: Performed By: #### L 3890.6006, L501.0250, L509.8002, L100.0100 ####[facility] [address] [place], [address] MCV (RBC) [Entitic vol] 92.6 fL Normal 81-99 [facility] Comment on above: Performed By: #### L 3890.6006, L501.0250, L509.8002, L100.0100 ####[facility] [address] [place], [address] Monocytes/100 WBC (Bld) 7.4 % Normal 0-10 [facility] Comment on above: Performed By: #### L 3890.6006, L501.0250, L509.8002, L100.0100 ####[facility] [address] [place], [address] Neutrophils/100 WBC (Bld) 70.0 % Normal 47-70 [facility] Comment on above: Performed By: #### L 3890.6006, L501.0250, L509.8002, L100.0100 ####[facility] [address] [place], [address] Nucleated RBC (Bld) [#/Vol] 0 10*3/uL Normal 0-5 [facility] Comment on above: Performed By: #### L 3890.6006, L501.0250, L509.8002, L100.0100 ####[facility] [address] [place], [address] Platelet mean volume (Bld) [Entitic vol] 12.4 fL High 6.2-12.0 [facility] Comment on above: Performed By: #### L 3890.6006, L501.0250, L509.8002, L100.0100 ####[facility] [address] [place], [address] Platelets (Bld) [#/Vol] 178 10*3/uL Normal 150-450 [facility] Comment on above: Performed By: #### L 3890.6006, L501.0250, L509.8002, L100.0100 ####[facility] [address] [place], [address] RBC (Bld) [#/Vol] 3.76 10*6/uL Low 4.2-5.4 [facility] Comment on above: Performed By: #### L 3890.6006, L501.0250, L509.8002, L100.0100 ####[facility] [address] [place], [address] RDW SD 48.0 fl High 35.1-43.9 [facility] Comment on above: Performed By: #### L 3890.6006, L501.0250, L509.8002, L100.0100 ####[facility] [address] [place], [address] WBC (Bld) [#/Vol] 13.5 10*3/uL High 4.4-11.0 [facility] Comment on above: Performed By: #### L 3890.6006, L501.0250, L509.8002, L100.0100 ####[facility] [address] [place], [address] Eosinophil percentageOrdered By: Paola Voss on 02-19-2025 Eosinophils/100 WBC (Bld) 4.2 % 0-5 [facility] Erythrocyte distribution wid th ratioOrdered By: Paola Voss on 02-19-2025 Erythrocyte distribution width (RBC) [Ratio] 14.3 % 11.6-14.6 [facility] Erythrocyte distribution wid th standard deviationOrdered By: Paola Voss on 02-19-2025 Erythrocyte distribution width (RBC) [Ratio] 48.0 fl High 35.1-43.9 [facility] Glucose Challenge Gest 1H 50 eulalia 02-19-2025 GLU GEST 50g 1H 117 mg/dL Normal 70-140 [facility] Comment on above: Performed By: #### L 3890.6006, L501.0250, L509.8002, L100.0100 #### [facility] Laboratory [address] [place], [place], [address] Glucose measurement at 2 brennen rs post-dose gestational glucose tolerance testOrdered By: Paola Voss on 02-19-2025 Glucose [Mass/Vol] 117 mg/dL 70-140 [facility] HIVon 02-19-2025 HIV Non-Reactive Normal Nonreactive [facility] Comment on above: Result Comment: Non- Reactive Reactive Repeatedly reactive samples must be confirmed according to CDC recommended confirmatory algorithms. The subresults for either HIVAG or AHIV can be used as an aid in the selection of the confirmation algorithm for reactive samples. Send out specimens with Reactive results to [facility] for confirmation. Order the HIV antibody detection and differentiation: lc#[id number] Performed By: #### L 3890.6006, L501.0250, L509.8002, L100.0100 #### [facility] Laboratory [address] [place], [place], [id number] Hematocrit Auto (Bld) [Volum e fraction]Ordered By: Paola Voss on 02-19-2025 Hematocrit (Bld) [Volume fraction] 34.8 % Low 37-47 [facility] Hemoglobin measurementOrdere d By: Paola Voss on 02-19-2025 Hemoglobin (Bld) [Mass/Vol] 12.6 g/dL 12.0-15.0 [facility] Immature granulocytes/100 WB C Auto (Bld)Ordered By: Paola Voss on 02-19-2025 Immature granulocytes/100 WBC (Bld) 1.600 % High 0.0-0.9 [facility] Comment on above: IG% - Immature Granu locytes (promyelocytes, myelocytes and metamyelocytes) > 1% indicates that a LEFT SHIFT is Present. Laboratory - Chemistry and C hemistry - challengeOrdered By: Julia Chavez on 02-19-2025 Glucose Ql (U) Negative [facility] Laboratory - UrinalysisOrder ed By: Julia Chavez on 02-19-2025 Protein Ql (U) Negative [facility] MCV (mean corpuscular volume ) determinationOrdered By: Paola Voss on 02-19-2025 MCV (RBC) [Entitic vol] 92.6 fL 81-99 [facility] Mean corpuscular hemoglobin (MCH) determinationOrdered By: Paola Voss on 02-19-2025 MCH (RBC) [Entitic mass] 33.5 pg High 27.0-32.0 [facility] Mean corpuscular hemoglobin concentration (MCHC) determinationOrdered By: Paola Voss on 02-19-2025 MCHC (RBC) [Mass/Vol] 36.2 g/dL High 32-36 [facility] Mean platelet volume determi nationOrdered By: Paola Voss on 02-19-2025 Platelet mean volume (Bld) [Entitic vol] 12.4 fL High 6.2-12.0 [facility] Monocyte percentageOrdered B y: Paola Voss on 02-19-2025 Monocytes/100 WBC (Bld) 7.4 % 0-10 [facility] Neutrophil percentageOrdered By: Paola Voss on 02-19-2025 Neutrophils/100 WBC (Bld) 70.0 % 47-70 [facility] No Panel InformationOrdered By: Paola Voss on 02-19-2025 HIV (1&2) Antibody Non-Reactive Nonreactive [facility] Comment on above: Non-ReactiveReactive Repeatedly reactive samples must be confirmed according to CDC recommended confirmatory algorithms. The subresults for either HIVAG or AHIV can be used as an aid in the selection of the confirmation algorithm for reactive samples.Send out specimens with Reactive results to [facility] for confirmation.Order the HIV antibody detection and differentiation: #[id number] Nucleated red blood cell per centageOrdered By: Paola Voss on 02-19-2025 Nucleated RBC/100 WBC (Bld) [Ratio] 0 % 0-5 [facility] Deputy Controller Office Visit Reporton 02-19-2025 Deputy Controller Office Visit Report [facility] [address], [address] [place] [address] OFFICE VISIT Date of Service: 02/19/25 MR#: [id number] Acct: [id number] Name: KATIE ROBB Rep #: [id number] : 1990 Provider: DAYNA stanford Age/Sex: 35/F Location[place] [facility] Status: Signed Intake Vital Signs 01/06/25 14:11 01/29/25 15:18 02/19/25 15:12 Height 5 ft 7 in 5 ft 7 in 5 ft 7 in Weight: 212 lb 8 oz BMI 33.3 BP 105/73 Intake Visit Reasons: 28wk ob/glucose Chief Complaint: 28 Week OB/Glucose [employer] Crewmember Required: No Is patient in pain?: No Allergies No Known Allergies Allergy (Verified 02/19/25 15:13) Medications ???Medication ???Instructions ???Recorded ???Confirmed ???Type PNV no.63-iron,carbonyl 27 1 cap PO QDAY 10/02/24 02/19/25 Hi story mg-folic acid 800 mcg-dha 200 mg capsule vancomycin 250 mg capsule 250 mg PO Q8 #21 caps 01/05/2505/05 Rx Last Menstrual Period: 05/03/22 Zika: Zika virus screening: Negative : Yes PFSH PFSH Medical History Segmental and somatic dysfunction [...] 3-4 times per week duration: 30-45 minutes/day diego/druze: None seatbelt use: always do you feel [...] 39 live - full term 9lbs Female [facility] K. Co cici Zee HPI 28wk ob/glucose Details: KATIE ROBB is a 35 year old who presents for routine OB visit. OB Visit TETO Calculator Estimated Delivery Date Method Current WG Current Estimate 05/13/25 Conception 28w 1d Other Estimates 05/20/25 Ultrasound #1 27w 1d Expected Delivery Route/Plan Labor Preferences- CB/BF classes: no labor support person: Yayo labor intervention preferences: [] pain management options preferred: open to what she requests cut cord/dad catch: yes : yes PP control planned: discussed discussed possible routes of delivery and associated risks: [] special requests: [] Specific Issue/Plans Covid status: [] Flu vaccine: [] Tdap vaccine: [] Rhogam: NA LARC form signed: yes Problem list reviewed and updated with the [...] lb 8 oz (+8 oz) 121/84 -???-???-???-???-???-??? -??? (more content not included)... Normal [facility] Platelet countOrdered By: Chris Voss on 02-19-2025 Platelets (Bld) [#/Vol] 178 10*3/uL 150-450 [facility] RBC Auto (Bld) [#/Vol]Ordere d By: Paola Voss on 02-19-2025 RBC (Bld) [#/Vol] 3.76 10*6/uL Low 4.2-5.4 [facility] Serum or plasma cytomegalovi tristan (CMV) IgG antibody assay (units/volume)Ordered By: Julia Chavez on 02-19-2025 CMV IgG Qn < 0.60 U/mL 0.00-0.59 [facility] Comment on above: Negative <0.60 Equiv ocal 0.60 - 0.69 Positive >0.69 Serum or plasma cytomegalovi tristan (CMV) IgM antibody assay (units/volume)Ordered By: Julia Chavez on 02-19-2025 CMV IgM Qn < 30.0 AU/mL 0.0-29.9 [facility] Comment on above: Negative <30.0 Equiv ocal 30.0 - 34.9 Positive >34.9A positive result is generally indicative of acuteinfection, reactivation or persistent IgM production.Performed at: [facility] [id number] [place], [place] [id number] Director: Robert Gonzalez PhD, Phone: [phone] Syphilis Antibodieson 2024 Syphilis Abs Non-Reactive Normal Nonreactive [facility] Comment on above: Performed By: #### L 3890.6006, L501.0250, L509.8002, L100.0100 #### [facility] Laboratory [address] [place], [address] White blood cell (WBC) count Ordered By: Paola Voss on 02-19-2025 WBC (Bld) [#/Vol] 13.5 10*3/uL High 4.4-11.0 [facility] Laboratory - Chemistry and C hemistry - challengeOrdered By: Nat Gomez on 01-29-2025 Glucose Ql (U) Negative [facility] Laboratory - UrinalysisOrder ed By: Nat Gomez on 01-29-2025 Protein Ql (U) Negative [facility] Deputy Controller Office Visit Reporton 01-29-2025 Deputy Controller Office Visit Report [facility], [address] [place] [address] OFFICE VISIT Date of Service: 01/29/25 MR#: [id number] Acct: [id number] Name: KATIE ROBB Rep #: [id number] : 1990 Provider: Dr. 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 Is patient in pain?: No Allergies No Known Allergies Allergy (Verified 01/29/25 15:18) Medications ???Medication ???Instructions ???Recorded ???Confirmed ???Type PNV no.63-iron,carbonyl 27mg-folic 1 cap PO QDAY 10/02/24 01/29/25 History acid 800 mcg-dha 200 mg capsule vancomycin 250 mg capsule 250 mg PO Q8 #21 caps 01/05/25 Rx Last Menstrual Period: 05/03/22 Zika: Zika virus screening: Negative : No PFSH PFSH Medical History Segmental and somatic dysfunction [...] 3-4 times per week duration: 30-45 minutes/day diego/druze: None seatbelt use: always do you feel [...] 39 live - full term 9lbs Female [facility] K. Wi cici Zee HPI 25wk ob Details: KATIE ROBB is a 35 year old who presents for routine OB visit. OB Visit TETO Calculator Estimated Delivery Date Method Current WG Current Estimate 05/13/25 Conception 25w 1d Other Estimates 05/20/25 Ultrasound #1 24w 1d Expected Delivery Route/Plan Labor Preferences- CB/BF classes: [...] - 173 -???-???-???-???-???-??? -???-???-???-???-???-??? - KW- CRL c (more content not included)... Normal [facility] Laboratory - Chemistry and C hemistry - challengeOrdered By: Paola Voss on 01-06-2025 Glucose Ql (U) Negative [facility] Laboratory - UrinalysisOrder ed By: Paola Voss on 01-06-2025 Protein Ql (U) Negative [facility] Deputy Controller Office Visit Reporton 01-06-2025 Deputy Controller Office Visit Report [facility] [address], [address] [place] [address] OFFICE VISIT Date of Service: 01/06/25 MR#: [id number] Acct: [id number] Name: KATIE ROBB Rep #: [id number] : 1990 Provider: Dr. 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 Is patient in pain?: No Allergies No Known Allergies Allergy (Verified 01/06/25 14:09) Medications ???Medication ???Instructions ???Recorded ???Confirmed ???Type PNV no.63-iron,carbonyl 27mg-folic 1 cap PO QDAY 10/02/24 01/06/25 History acid 800 mcg-dha 200 mg capsule vancomycin 250 mg capsule 250 mg PO Q8 #21 caps 01/05/25 Rx Last Menstrual Period: 05/03/22 Zika: Zika virus screening: Negative : No PFSH PFSH Medical History Segmental and somatic dysfunction [...] 3-4 times per week duration: 30-45 minutes/day diego/druze: None seatbelt use: always do you feel [...] 39 live - full term 9lbs Female [facility] K. Wi cici Zee HPI 22wk ob *nancy from 7/23 Details: KATIE ROBB is a 34 year old who presents for routine OB visit. OB Visit TETO Calculator Estimated Delivery Date Method Current WG Current Estimate 05/13/25 Conception 21w 6d Other Estimates 05/20/25 Ultrasound #1 20w 6d Expected Delivery Route/Plan Labor Preferences- CB/BF [...] (+8 oz) 121/84 -???-???-???-???-???-??? -???-???-???-???-???-??? - 173 -??? (more content not included)... Normal [facility] Urine Cultureon 01-04-2025 URC Urine Culture Urine Culture Mixed Gram Positive Organisms [place] Count 50,000-80,000 Streptococcus agalactiae (B) Streptococcus agalactiae (B) Streptococcus agalactiae (B): REACTION Ampicillin Islt BASIA <=0.25 S cefTRIAXone Islt BASIA <=0.12 Clindamycin.induced Susc Islt NEG Linezolid Islt BASIA <=2 S Vancomycin Islt BASIA <=0.12 S Normal [facility] Comment on above: Performed By: #### M 100.2200 #### [facility] Laboratory [address] [place], [place], [id number] Laboratory - Chemistry and C hemistry - challengeOrdered By: Bharathi Moreno on 01-01-2025 Bilirubin Ql (U) Negative [facility] Glucose Ql (U) Negative [facility] Ketones Ql (U) Trace (5) [facility] pH (U) 7 [pH] [facility] Specific gravity (U) [Rel density] 1.010 [facility] Laboratory - Hematology and Cell countsOrdered By: Bharathi Moreno on 01-01-2025 Hemoglobin Ql (U) Negative [facility] Laboratory - Specimen inform ationOrdered By: Bharathi Moreno on 01-01-2025 Clarity (U) Cloudy [facility] Color (U) DARK YELLOW [facility] Laboratory - UrinalysisOrder ed By: Bharathi Moreno on 01-01-2025 Nitrite Ql (U) Negative [facility] Protein Ql (U) Trace [facility] No Panel InformationOrdered By: Bharathi Moreno on 01-01-2025 Urine Leukocytes Negatve [facility] Urine Non-Hemolyzed Blood [facility] Urgent Care Visit Reporton 0 01-01-2025 Urgent Care Visit Report [facility] [address], [address] [place], [place] [address] OFFICE VISIT Date of Service: 01/01/25 MR#: [id number] Acct: [id number] Name: KATIE ROBB Rep #: [id number] : 1990 Provider: RAFY Merino Age/Sex: 34/F Location: [facility] Status: Signed Intake Vital Signs 12/05/24 11:44 01/01/25 08:29 Height 5 ft 7 in 5 ft 7 in Weight: 203 lb BMI 31.8 BP 122/82 H Blood Pressure Location Lt brachial Position Sitting Pulse 91 Temp 98.1 F Temp Source Oral Pulse Oximetry (%) 99 Oxygen Delivery Method room air Intake Visit Reasons: concern for uti Chief Complaint: UTI Accompanied by: Self Allergies No Known Allergies Allergy (Verified 01/01/25 08:23) Medications ???Medication ???Instructions ???Recorded ???Confirmed ???Type PNV no.63-iron,carbonyl 27mg-folic 1 cap PO QDAY 10/02/24 01/01/25 History acid 800 mcg-dha 200 mg capsule Nurse's Note: Patient has bladder pain, cloudy urine, urinary frequency, and is straining to urinate. Patient is currently [facility] Medical History Segmental and somatic dysfunction of [...] 3-4 times per week duration: 30-45 minutes/day diego/druze: None seatbelt use: always do you feel safe at home: Yes additional social history: - Yayo, radiation therapist/oncology HPI HPI Chief Complaint: UTI Details: KATIE ROBB, is a 34 F who presents to the office today for complaint of painful urination. Patient states that the pain is more around her bladder area and not burning when she pees. Patient is and states that she has had some difficulty with feeling like she is able to empty her bladder therefore wants to make sure she does not have a UTI. She denies fever, chills or sweats. No nausea, vomiting or diarrhea. No other associated symptoms or alleviating/aggravating factors. ROS Const Constitutional: No other (as above) Exam Const General: cooperative and healthy appearing Resp Effort Inspection: normal respiratory effort Auscultation: Bilateral: Clear to Auscultation Cardio Rate: regular rate Rhythm: regular rhythm GI Auscultation: normal bowel sounds General: No CVA tenderness Psych Appearance: grossly normal Mental Status: mental status grossly normal Results POC Urinalysis Dip (Clinic) Office Urine Color DARK YELLOW Last Edit by Danielle Ferrell MA on 01/01/25 08:37 Office Urine Clarity Cloudy Last Edit by Danielle Ferrell MA on 01/01/25 08:37 Office Urine Glucose Negative Last Edit by Danielle Ferrell MA on 01/01/25 08:37 Office Urine Ketones Trace (5) Last Edit by Danielle Ferrell MA on 01/01/25 08:37 Off Ur Spec Milton 1.010 Last Edit by Danielle Ferrell MA on 01/01/25 08:37 Office Urine pH 7 Last Edit by Danielle Ferrell MA on 01/01/25 08:37 Office Urine Bilirubin Negative Last Edit by Danielle Ferrell MA on 01/01/25 08:37 Office Urine Urobilinogen Last Edit by Danielle Ferrell MA on 01/01/25 08:37 Office Urine Blood Negative Last Edit by Danielle Ferrell MA on 01/01/25 08:37 Office Urine Blood Hemolyzed NA Last Edit by Danielle Ferrell MA on 01/01/25 08:37 Office Urine Protein Trace Last Edit by Danielle Ferrell MA on 01/01/25 08:37 O (more content not included)... Normal [facility] Urine cultureOrdered By: Amol Moreno on 01-01-2025 Bacteria identified Cx Nom (U) Positive Abnormal [facility] Bacteria identified Cx Nom (U) Streptococcus agalactiae (B) Abnormal [facility] Magnetic resonance imaging r eportOrdered By: Harley Balderas on 12-25-2024 Study report [facility] Imaging Services [address] [place] [address] Pelvis (Routine) MR#: [id number] Acct: [id number] Name: KATIE ROBB Rep #: [id number] : 1990 F 34 From: Pet er Shakeel GOLDBERG PCP: Dr. Liv Matta MD Status: REG CLI Study:Pelvis (Routine) Date of Exam: Exam# [id number] Ordering Dr: Paola Danielle DO EXAM: PELVIS (ROUTINE) 12/25/2024 CLINICAL HISTORY: ABNORMAL US. The molding manager questioned existence of 2 placentas. Final radiologist's interpretation of the ultrasound was 1 placenta. TECHNIQUE: PELVIS (ROUTINE) Multiplanar and multisequence images were obtained without intravenous gadolinium contrast. COMPARISON: Ob anatomy ultrasound of December 25, 2024 FINDINGS: Placenta position is anterior and left lateral. Only single placenta is identified. Fetus presentation is vertex. It is difficult to comment on fine anatomic detail, but grossly no anatomic abnormalities appreciated. MRI/Pelvis (Routine) IMPRESSION: Normal anterior and lateral placenta. No evidence of 2nd placenta. Reading Location: [facility] CC: Dr. Liv Matta MD; Dr. Paola Weeks DO ~ Spiritual Advisor: Signed [facility] OB Anatomy w/ Transvaginalon 12-25-2024 OB Anatomy w/ Transvaginal [facility] Imaging Services [address] [place], [place] [address] OB Anatomy w/ Transvaginal MR#: [id number] Acct: [id number] Name: KATIE ROBB Rep #: [id number] : 1990 F 34 From: Esequiel Link MD PCP: Dr. Liv Matta MD Status: REG CLI Study: OB Anatomy w/ Transvaginal Date of Exam: 12/25 Exam# [id number] Ordering Dr: Nat Gomez PROCEDURE: OB ANATOMY W/ TRANSVAGINAL 12/25/2024 REASON FOR EXAM: OB ANATOMY SCAN TECHNIQUE: OB ANATOMY W/ TRANSVAGINAL COMPARISON: Pelvic ultrasound 10/05/2024 FINDINGS Number: 1 Position: Vertex Placental Position: Anterior Placental Abnormalities: Limited evaluation is unremarkable DIMENSIONS: Biparietal Diameter: Not obtained Head Circumference: Not obtained Abdominal Circumference: 15.2 cm/53% Femur Length: 3.1 cm/22% ESTIMATED WEIGHT: Not obtained ESTIMATED WEIGHT PERCENTILE (24+ weeks): Not obtained ESTIMATED GESTATIONAL AGE: Baseline: 20 weeks 1 day By Ultrasound: 19 weeks 1 day ESTIMATED DATE OF DELIVERY: Baseline: 05/13/2025 By Ultrasound: 05/20/2025 BIOPHYSICAL ASSESSMENT: Amniotic Fluid Volume: Measures 4.9 cm in the right lower quadrant, other locations were not obtained Amniotic Fluid Index: Not performed (8-24 cm normal range) heart rate: 143 beats per minute MATERNAL ANATOMY: Adnexa: Neither maternal ovary is successfully identified. Cervical Length (if measured): 2.5 cm ANATOMY: Spine: Unremarkable Cranium: Poorly visualized Cerebellum: Suboptimally visualized, measuring 1.7 cm Cisterna Magna: Suboptimally visualized, measuring 0.7 cm Cavum Septum Pellucidi: Not visualized Lateral Ventricles: Not visualized Choroid Plexus: Unremarkable Upper Lip: Not visualized Heart: Not visualized Ventricular Outflow Tracts: Not visualized Stomach: Unremarkable Kidneys: Not well-visualized Bladder: Unremarkable Umbilical Cord: Normal three-vessel cord Extremities: Unremarkable US/OB Anatomy w/ Transvaginal IMPRESSION: 1. Markedly limited exam, with nonvisualization of numerous anatomic structures as detailed above. Recommend patient return for additional imaging to complete the anatomy scan. 2. The questionable second uterus documented by the technologist is favored to represent the normal cervix and lower uterine segment, as there was no uterine anomaly seen on the ultrasound dated 10/05/2024. Per Dr. Mendenhall, MRI is planned to exclude ectopic . 3. Deepest vertical pocket of amniotic fluid measures 4.9 cm, normal. Impression in this case discussed with Dr. Mendenhall on 12/25/2024 at 6:55 p.m. Reading Location: [id number] CC: Dr. Liv Matta MD; Dr. Nat Gomez MD Spiritual Advisor: Signed Normal [facility] OB Triage Physician Noteon 0 12-25-2024 OB Triage Physician Note [facility] Medical Records Department [address] [place] [address] OB Triage Physician Note 12/25/24 7097 MR#: [id number] Acct: [id number] Name: KATIE ROBB Rep #: [id number] : 1990 34 From: Paola Weeks DO PCP: Dr. Liv Matta MD Status:DEP CLI Y Location: [facility] HPI - General General Date of Admission: 12/25/24 HPI Narrative KATIE ROBB, is a 34 y/o @ 20 weeks who was called in to l d to set up an urgent MRI due to concerns of position, placentation, and head size from the physical therapist technician. The lube technician paged me twice with concerns that the baby is located in the cul-de-sac and possibly not the uterus. The patient was IVF and we do have a 1st trimester ultrasound that confirmed that the fetus was situated in the uterus. After discussing with MFM in [place], the chance of the becoming extrauterine after implantation in the uterus is rare, however recommendation was made to perform an MRI to know more. Maternal Data Information TETO Calculator Estimated Delivery Date Method Current WG Current Estimate 05/13/25 Conception 21w 0d Other Estimates 05/20/25 Ultrasound #1 20w 0d PFSH PFSH Medical History Segmental and somatic dysfunction [...] istory acid 800 mcg-dha 200 mg capsule Allergy/AdvReac Type Severity Reaction Status Date / Time No Known Allergies Allergy Verified 12/25/24 18:45 Family History Father Lung cancer, Onset Age: [...] 3-4 times per week duration: 30-45 minutes/day diego/druze: None seatbelt use: always do you feel [...] 39 live - full term 9lbs Female [facility] K. Wi llroberta Zee Visit Details Expected Delivery Route/Plan Labor Preferences- CB/BF classes: [] labor support person: [] labor intervention preferences: [] pain management options preferred: [] cut cord/dad catch: [] : [] PP control planned: [] discussed possible routes of delivery and associated risks: [] special requests: [] Plans Covid status: [] Flu vaccine: [] Tdap vaccine: [] Rhogam: [] LARC form signed: [] Problem list reviewed and updated with the most current plan of care details and appropriate orders placed. Relevant counseling for the gestational age provided. Continue routine care and follow up unless otherwise noted in visit notes/problem list details OB Flowsheet Initial Weight: 193 lb Date -???-???-???-???-???-??? -???-???-???-???-???-??? - EGA Weight BP Urine Prot -???-???-???-???-???-??? -???-???-???-???-???-??? - Glucose FHR FuHt Pres Dilation -???-???-???-???-???-??? -???-???-???-???-???-??? - Effaced St Visit Note 10/07/24 (more content not included)... Normal [facility] Pelvis (Routine)on 5 Pelvis (Routine) [facility] Imaging Services [address] [place] [address] Pelvis (Routine) MR#: [id number] Acct: [id number] Name: KATIE ROBB Rep #: [id number] : 1990 F 34 From: Harley Balderas DO PCP: Dr. Liv Matta MD Status: REG CLI Study: Pelvis (Routine) Date of Exam: 12/25/24 Exam# [id number] Ordering Dr: Paola Weeks DO EXAM: PELVIS (ROUTINE) 12/25/2024 CLINICAL HISTORY: ABNORMAL US. The molding manager questioned existence of 2 placentas. Final radiologist's interpretation of the ultrasound was 1 placenta. TECHNIQUE: PELVIS (ROUTINE) Multiplanar and multisequence images were obtained without intravenous gadolinium contrast. COMPARISON: Ob anatomy ultrasound of December 25, 2024 FINDINGS: Placenta position is anterior and left lateral. Only single placenta is identified. Fetus presentation is vertex. It is difficult to comment on fine anatomic detail, but grossly no anatomic abnormalities appreciated. MRI/Pelvis (Routine) IMPRESSION: Normal anterior and lateral placenta. No evidence of 2nd placenta. Reading [facility] CC: Dr. Liv Matta MD; Dr. Paola Weeks DO Spiritual Advisor: Signed Normal [facility] Chiropractic Reporton 2024 Chiropractic Report [facility] [address] [place] [address] OFFICE VISIT Date of Service: 12/16/24 MR#: [id number] Acct: [id number] Name: KATIE ROBB Rep #: [id number] : 1990 Provider: MARCE Valdovinos Do ssi Age/Sex: 34/F Location: [facility] Status: Signed Intake Vital Signs 11/04/24 15:20 [...] 3-4 times per week duration: 30-45 minutes/day diego/druze: None seatbelt use: always do you feel safe at home: Yes additional social history: - Yayo, radiation therapist/oncology [facility] ADJUSTMENT Chief Complaint: mid/ low back pain [...] and Pelvis (more content not included)... Normal [facility] Chiropractic Reporton 2024 Chiropractic Report [facility] [place] [address] OFFICE VISIT Date of Service: 12/11/24 MR#: [id number] Acct: [id number] Name: KATIE ROBB Rep #: [id number] : 1990 Provider: MARCE Dela Cruz Age/Sex: 34/F Location: [facility] Status: Signed Intake Vital Signs 11/25/24 [...] postnasal drainage #30 mL PFSH Medical History (Updated 12/11/24 @ 15:07 by [...] 3-4 times per week duration: 30-45 minutes/day diego/druze: None seatbelt use: always do you feel safe at home: Yes additional social history: - Yayo, radiation therapist/oncology [facility] ADJUSTMENT Chief Complaint: mid/ low back pain [...] lumbar region: (more content not included)... 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 denies fever. pt is 20 weeks --provider informed [facility] Medical History (Updated 12/11/24 @ 15:07 by [...] 3-4 times per week duration: 30-45 minutes/day diego/druze: None seatbelt use: always do you feel safe at home: Yes additional social history: - Yayo, radiation therapist/oncology HPI HPI Chief Complaint: cough, congest, drainage, ST [...] 0RF ipratr (more content not included)... Normal [facility] Laboratory - Chemistry and C hemistry - challengeOrdered By: Nick Cordon on 12-05-2024 Glucose Ql (U) Negative [facility] Laboratory - UrinalysisOrder ed By: Nick Cordon on 12-05-2024 Protein Ql (U) Negative [facility] Deputy Controller Office Visit Reporton 12-05-2024 Deputy Controller Office Visit Report [facility] [address], [address] [place] [address] OFFICE VISIT Date of Service: 12/05/24 MR#: [id number] Acct: [id number] Name: KATIE ROBB Rep #: [id number] : 1990 Provider: LIUDMILA mckee Age/Sex: 34/F Location: [facility] Status: Signed Intake Vital Signs 10/21/24 14:58 11/25/24 15:17 12/05/24 11:44 Height 5 ft 7 in 5 ft 7 in 5 ft 7 in Weight: 195 lb 4 oz BMI 30.5 BP 116/82 H Intake Visit Reasons: 16wk ob Chief Complaint: 16wk ob Bradley Linebacker Crewmember Required: No Is patient in pain?: No [...] 3-4 times per week duration: 30-45 minutes/day diego/druze: None seatbelt use: always do you feel [...] 39 live - full term 9lbs Female [facility] K. Wi lliams Yayo HPI 16wk ob [...] CRL cons (more content not included)... Normal [facility] Laboratory - Chemistry and C hemistry - challengeOrdered By: Niya Armstrong on 11-04-2024 Glucose Ql (U) Negative [facility] Laboratory - UrinalysisOrder ed By: Niya Armstrong on 11-04-2024 Protein Ql (U) Negative [facility] Deputy Controller Office Visit Reporton 11-04-2024 Deputy Controller Office Visit Report [facility] [address], [address] [place] [address] OFFICE VISIT Date of Service: 11/04/24 MR#: [id number] Acct: [id number] Name: KATIE ROBB Rep #: [id number] : 1990 Provider: LIUDMILA Landers ams Age/Sex: 34/F Location: [facility] Status: Signed Intake Vital Signs 10/21/24 14:58 11/04/24 15:20 Height 5 ft 7 in 5 ft 7 in Weight: 196 lb 4 oz BMI 30.7 BP 117/81 H Intake Visit Reasons: 12wk ob Chief Complaint: 12wk OB [employer] Crewmember Required: No Is patient in pain?: No [...] 3-4 times per week duration: 30-45 minutes/day diego/druze: None seatbelt use: always do you feel [...] 41 live - full term 9lbs Female [facility] K. Wi cici Zee HPI 12wk [...] -???-???-???-???-???-??? - (more content not included)... Normal [facility] L3890.6102on 10-22-2024 HEP B Surf Ag Non-Reactive Normal Nonreactive [facility] Comment on above: Result Comment: Reac tive: Presumptive evidence of HBV. Repeatedly reactive samples must be confirmed using a neutralization test (Elecsys HBsAg Confirmatory Test) Non-Reactive: HBsAg not detected; does not exclude the possibility of exposure to HBV Performed By: #### L 3890.6301, L900.0098, L509.4006, L3890.6102, BTS, L509.8002, L3890.6006, L100.0100 ####[facility] [address] [place], [place], [address] Absolute lymphocyte countOrd ered By: Nat Gomez on 10-21-2024 Lymphocytes Auto (Unsp spec) [#/Vol] 2.02 10*3/uL 0.83-4.51 [facility] Absolute neutrophil countOrd ered By: Nat Gomez on 10-21-2024 Neutrophils (Bld) [#/Vol] 7.0 10*3/uL 2.0-7.7 [facility] Automated lymphocyte count a s percentage of total leukocytesOrdered By: Nat Gomez on 10-21-2024 Lymphocytes/100 WBC Auto (Unsp spec) 19.2 % 19-41 [facility] Basophil percentageOrdered B y: Nat Gomez on 10-21-2024 Basophils/100 WBC (Bld) 0.5 % 0-1 [facility] CBC W/Diff, Automatedon 10-09 Absolute Lymph 2.02 X10 3/uL Normal 0.83-4.51 [facility] Comment on above: Performed By: #### L 3890.6301, L900.0098, L509.4006, L3890.6102, BTS, L509.8002, L3890.6006, L100.0100 ####[facility] [address] [place], [address] Absolute Neut 7.0 X10 3/uL Normal 2.0-7.7 [facility] Comment on above: Performed By: #### L 3890.6301, L900.0098, L509.4006, L3890.6102, BTS, L509.8002, L3890.6006, L100.0100 ####[facility] [address] [place], [address] Basophils/100 WBC (Bld) 0.5 % Normal 0-1 [facility] Comment on above: Performed By: #### L 3890.6301, L900.0098, L509.4006, L3890.6102, BTS, L509.8002, L3890.6006, L100.0100 ####[facility] [address] [place], [address] Eosinophils/100 WBC (Bld) 6.3 % High 0-5 [facility] Comment on above: Performed By: #### L 3890.6301, L900.0098, L509.4006, L3890.6102, BTS, L509.8002, L3890.6006, L100.0100 ####[facility] [address] [place], [address] Erythrocyte distribution width (RBC) [Ratio] 13.2 % Normal 11.6-14.6 [facility] Comment on above: Performed By: #### L 3890.6301, L900.0098, L509.4006, L3890.6102, BTS, L509.8002, L3890.6006, L100.0100 ####[facility] [address] [place], [address] Hematocrit (Bld) [Volume fraction] 38.1 % Normal 37-47 [facility] Comment on above: Performed By: #### L 3890.6301, L900.0098, L509.4006, L3890.6102, BTS, L509.8002, L3890.6006, L100.0100 ####[facility] [address] [place], [address] Hemoglobin (Bld) [Mass/Vol] 14.1 g/dL Normal 12.0-15.0 [facility] Comment on above: Performed By: #### L 3890.6301, L900.0098, L509.4006, L3890.6102, BTS, L509.8002, L3890.6006, L100.0100 ####[facility] [address] [place], [address] IG% 0.700 Normal 0.0-0.9 [facility] Comment on above: Result Comment: IG% - Immature Granulocytes (promyelocytes, myelocytes and metamyelocytes) > 1% indicates that a LEFT SHIFT is Present. Performed By: #### L 3890.6301, L900.0098, L509.4006, L3890.6102, BTS, L509.8002, L3890.6006, L100.0100 ####[facility] [address] [place], [address] Lymphocytes/100 WBC (Bld) 19.2 % Normal 19-41 [facility] Comment on above: Performed By: #### L 3890.6301, L900.0098, L509.4006, L3890.6102, BTS, L509.8002, L3890.6006, L100.0100 ####[facility] [address] [place], [address] MCH (RBC) [Entitic mass] 32.8 pg High 27.0-32.0 [facility] Comment on above: Performed By: #### L 3890.6301, L900.0098, L509.4006, L3890.6102, BTS, L509.8002, L3890.6006, L100.0100 ####[facility] [address] [place], [address] MCHC (RBC) [Mass/Vol] 37.0 g/dL High 32-36 [facility] Comment on above: Performed By: #### L 3890.6301, L900.0098, L509.4006, L3890.6102, BTS, L509.8002, L3890.6006, L100.0100 ####[facility] [address] [place], [address] MCV (RBC) [Entitic vol] 88.6 fL Normal 81-99 [facility] Comment on above: Performed By: #### L 3890.6301, L900.0098, L509.4006, L3890.6102, BTS, L509.8002, L3890.6006, L100.0100 ####[facility] [address] [place], [address] Monocytes/100 WBC (Bld) 7.4 % Normal 0-10 [facility] Comment on above: Performed By: #### L 3890.6301, L900.0098, L509.4006, L3890.6102, BTS, L509.8002, L3890.6006, L100.0100 ####[facility] [address] [place], [address] Neutrophils/100 WBC (Bld) 65.9 % Normal 47-70 [facility] Comment on above: Performed By: #### L 3890.6301, L900.0098, L509.4006, L3890.6102, BTS, L509.8002, L3890.6006, L100.0100 ####[facility] [address] [place], [address] Nucleated RBC (Bld) [#/Vol] 0 10*3/uL Normal 0-5 [facility] Comment on above: Performed By: #### L 3890.6301, L900.0098, L509.4006, L3890.6102, BTS, L509.8002, L3890.6006, L100.0100 ####[facility] [address] [place], [address] Platelet mean volume (Bld) [Entitic vol] 11.8 fL Normal 6.2-12.0 [facility] Comment on above: Performed By: #### L 3890.6301, L900.0098, L509.4006, L3890.6102, BTS, L509.8002, L3890.6006, L100.0100 ####[facility] [address] [place], [address] Platelets (Bld) [#/Vol] 216 10*3/uL Normal 150-450 [facility] Comment on above: Performed By: #### L 3890.6301, L900.0098, L509.4006, L3890.6102, BTS, L509.8002, L3890.6006, L100.0100 ####[facility] [address] [place], [address] RBC (Bld) [#/Vol] 4.30 10*6/uL Normal 4.2-5.4 [facility] Comment on above: Performed By: #### L 3890.6301, L900.0098, L509.4006, L3890.6102, BTS, L509.8002, L3890.6006, L100.0100 ####[facility] [address] [place], [address] RDW SD 42.6 fl Normal 35.1-43.9 [facility] Comment on above: Performed By: #### L 3890.6301, L900.0098, L509.4006, L3890.6102, BTS, L509.8002, L3890.6006, L100.0100 ####[facility] [address] [place], [address] WBC (Bld) [#/Vol] 10.5 10*3/uL Normal 4.4-11.0 [facility] Comment on above: Performed By: #### L 3890.6301, L900.0098, L509.4006, L3890.6102, BTS, L509.8002, L3890.6006, L100.0100 ####[facility] [address] [place], [address] Eosinophil percentageOrdered By: Nat Gomez on 10-21-2024 Eosinophils/100 WBC (Bld) 6.3 % High 0-5 [facility] Erythrocyte distribution wid th ratioOrdered By: Nat Gomez on 10-21-2024 Erythrocyte distribution width (RBC) [Ratio] 13.2 % 11.6-14.6 [facility] Erythrocyte distribution wid th standard deviationOrdered By: Nat Gomez on 10-21-2024 Erythrocyte distribution width (RBC) [Ratio] 42.6 fl 35.1-43.9 [facility] HIVon 10-21-2024 HIV Non-Reactive Normal Nonreactive [facility] Comment on above: Result Comment: Non- Reactive Reactive Repeatedly reactive samples must be confirmed according to CDC recommended confirmatory algorithms. The subresults for either HIVAG or AHIV can be used as an aid in the selection of the confirmation algorithm for reactive samples. Send out specimens with Reactive results to [facility] for confirmation. Order the HIV antibody detection and differentiation: lc#[id number] Performed By: #### L 3890.6301, L900.0098, L509.4006, L3890.6102, BTS, L509.8002, L3890.6006, L100.0100 ####[facility] [address] [place], [address] Hematocrit Auto (Bld) [Volum e fraction]Ordered By: Nat Gomez on 10-21-2024 Hematocrit (Bld) [Volume fraction] 38.1 % 37-47 [facility] Hemoglobin measurementOrdere d By: Nat Gomez on 10-21-2024 Hemoglobin (Bld) [Mass/Vol] 14.1 g/dL 12.0-15.0 [facility] Hepatitis C Antibodyon 10-21 Hepatitis C Ab Non-Reactive Normal Nonreactive [facility] Comment on above: Result Comment: Reac tive: Presumptive evidence of antibodies to HCV. Follow CDC recommendations for supplemental testing. Non-Reactive: Antibodies to HCV were not detected; does not exclude the possibility of exposure to HCV Reactive Results are presumptive evidence of antibodies to HCV. Follow CDC recommendations for supplemental testing. Order confirmation testing: HCV Quant by PCR testing - HCVPCR #[id number] Non Reactive: < 0.8 Equivocal: >/= 0.8 to < 1.0 Reactive: >/= 1.0 The CDC requires that a reactive/equivocal HCV antibody result be sent out for confirmation. HCV Quant by PCR testing. Performed By: #### L 3890.6301, L900.0098, L509.4006, L3890.6102, BTS, L509.8002, L3890.6006, L100.0100 ####[facility] [address] [place], [address] Immature granulocytes/100 WB C Auto (Bld)Ordered By: Nat Gomez on 10-21-2024 Immature granulocytes/100 WBC (Bld) 0.700 % 0.0-0.9 [facility] Comment on above: IG% - Immature Granu locytes (promyelocytes, myelocytes and metamyelocytes) > 1% indicates that a LEFT SHIFT is Present. L509.4006on 10-21-2024 Rubella IgG REAC Normal Nonreactive [facility] Comment on above: Result Comment: Anti body Result: Interpretation Non-Reactive: Non-Immune Reactive: Immune The following results were obtained with the Elecsys Rubella IgG assay. Results from assays of other manufacturers cannot be used interchangeably. Performed By: #### L 3890.6301, L900.0098, L509.4006, L3890.6102, BTS, L509.8002, L3890.6006, L100.0100 ####[facility] [address] [place], [address] Laboratory - Chemistry and C hemistry - challengeOrdered By: Nat Goemz on 10-21-2024 Glucose Ql (U) Negative [facility] Laboratory - Microbiology an d Antimicrobial susceptibilityOrdered By: Nat Gomez on 10-21-2024 HBV surface Ag Ql (S) Non-Reactive Nonreactive [facility] Comment on above: Reactive: Presumptiv e evidence of HBV. Repeatedly reactive samples must be confirmed using a neutralization test (Elecsys HBsAg Confirmatory Test)Non-Reactive: HBsAg not detected; does not exclude the possibility of exposure to HBV Laboratory - UrinalysisOrder ed By: Nat Gomez on 10-21-2024 Protein Ql (U) Negative [facility] MCV (mean corpuscular volume ) determinationOrdered By: Nat Gomez on 10-21-2024 MCV (RBC) [Entitic vol] 88.6 fL 81-99 [facility] Mean corpuscular hemoglobin (MCH) determinationOrdered By: Nat Gomez on 10-21-2024 MCH (RBC) [Entitic mass] 32.8 pg High 27.0-32.0 [facility] Mean corpuscular hemoglobin concentration (MCHC) determinationOrdered By: Nat Gomez on 10-21-2024 MCHC (RBC) [Mass/Vol] 37.0 g/dL High 32-36 [facility] Mean platelet volume determi nationOrdered By: Nat Gomez on 10-21-2024 Platelet mean volume (Bld) [Entitic vol] 11.8 fL 6.2-12.0 [facility] Monocyte percentageOrdered B y: Nat Gomez on 10-21-2024 Monocytes/100 WBC (Bld) 7.4 % 0-10 [facility] NATERAon 10-21-2024 NATURA SEE SCANNED REPORT Normal [facility] Comment on above: Performed By: #### L 3890.6301, L900.0098, L509.4006, L3890.6102, BTS, L509.8002, L3890.6006, L100.0100 ####[facility] [address] [place], [address] Neutrophil percentageOrdered By: Nat Gomez on 10-21-2024 Neutrophils/100 WBC (Bld) 65.9 % 47-70 [facility] No Panel InformationOrdered By: Nat Gomez on 10-21-2024 HIV (1&2) Antibody Non-Reactive Nonreactive [facility] Comment on above: Non-ReactiveReactive Repeatedly reactive samples must be confirmed according to CDC recommended confirmatory algorithms. The subresults for either HIVAG or AHIV can be used as an aid in the selection of the confirmation algorithm for reactive samples.Send out specimens with Reactive results to [facility] for confirmation.Order the HIV antibody detection and differentiation: #[id number] Nucleated red blood cell per centageOrdered By: Nat Gomez on 10-21-2024 Nucleated RBC/100 WBC (Bld) [Ratio] 0 % 0-5 [facility] Deputy Controller Office Visit Reporton 10-21-2024 Deputy Controller Office Visit Report [facility] [address], [address] [place] [address] OFFICE VISIT Date of Service: 10/21/24 MR#: [id number] Acct: [id number] Name: KATIE ROBB Rep #: [id number] : 1990 Provider: Dr. 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 Wi lliams Yayo HPI 10 WK OB Details: KATIE ROBB [...] cons wi (more content not included)... Normal [facility] Platelet countOrdered By: Kristopher Gomez on 10-21-2024 Platelets (Bld) [#/Vol] 216 10*3/uL 150-450 [facility] RBC Auto (Bld) [#/Vol]Ordere d By: Nat Gomez on 10-21-2024 RBC (Bld) [#/Vol] 4.30 10*6/uL 4.2-5.4 [facility] Syphilis Antibodieson 2024 Syphilis Abs Non-Reactive Normal Nonreactive [facility] Comment on above: Performed By: #### L 3890.6301, L900.0098, L509.4006, L3890.6102, BTS, L509.8002, L3890.6006, L100.0100 ####[facility] [address] [place], [place], [id number] Type AND Screenon 10-21-2024 Ab SCREEN GEL Negative Normal [facility] Comment on above: Order Comment: PN Performed By: #### L 3890.6301, L900.0098, L509.4006, L3890.6102, BTS, L509.8002, L3890.6006, L100.0100 ####[facility] [address] [place], [place], [id number] White blood cell (WBC) count Ordered By: Nat Gomez on 10-21-2024 WBC (Bld) [#/Vol] 10.5 10*3/uL 4.4-11.0 [facility] Chlamydia/GC KEELEY aptimaon CHLAMY,NUC ACID Negative Normal Negative [facility] Comment on above: Performed By: #### M 100.2200, L7000.1800 ####[facility] [address] [place], [place], [id number] GC BY NUC ACID Negative Normal Negative [facility] Comment on above: Result Comment: Perf ormed at: =G - [facility] [address] [id number] Toll Settlement Clerk: Mayra Kaba MD, Phone: [phone] Performed By: #### M 100.2200, L7000.1800 ####[facility] [address] [place], [place], [phone] Urine Cultureon 10-08-2024 URC Culture exhibits no growth. Normal [facility] Comment on above: Performed By: #### M 100.2200, L7000.1800 ####[facility] [address] [place], [place], [phone] Chlamydia trachomatis rRNA d etection by probe and target amplification methodOrdered By: Niya Armstrong on 10-07-2024 C. trachomatis rRNA KEELEY+probe Ql (Unsp spec) Negative Negative [facility] Neisseria gonorrhoeae nuclei c acid detection by amplified probe techniqueOrdered By: Niya Armstrong on 10-07-2024 N. gonorrhoeae DNA KEELEY+probe Ql (Unsp spec) Negative Negative [facility] Comment on above: Performed at: =[facility] - [facility] [place], [place] [id number] Director: Mayra Kaba MD, Phone: [phone] Deputy Controller Office Visit Reporton 10-07-2024 Deputy Controller Office Visit Report [facility] [address], [address] [place] [address] OFFICE VISIT Date of Service: 10/07/24 MR#: [id number] Acct: [id number] Name: KATIE ROBB Rep #: [id number] : 1990 Provider: LIUDMILA Landers ams Age/Sex: 34/F Location: [facility] Status: Signed Intake Vital Signs 07/22/24 15:10 10/07/24 14:44 Height 5 ft 7 in 5 ft 7 in Weight: 193 lb 8 oz BMI 30.3 BP 121/84 H Intake Visit Reasons: NOB 8WK IVF TETO 05/13 Chief Complaint: New OB [employer] Crewmember Required: No Is patient in pain?: No [...] 3-4 times per week duration: 30-45 minutes/day diego/druze: None seatbelt use: always do you feel [...] 41 live - full term 9lbs Female [facility] K. Wi cici Zee HPI NOB [...] 10/07/24 -???-???-???-? (more content not included)... Normal [facility] Urine cultureOrdered By: Joseph Armstrong on 10-07-2024 Bacteria identified Cx Nom (U) Culture exhibits no growth. [facility] Comprehensive Metabolic Prof ilon 10-06-2024 Albumin [Mass/Vol] 4.3 g/dL Normal 3.5-5.0 [facility] Comment on above: Performed By: #### L 100.0100, L500.4050, L700.8000 ####[facility] [address] [place], [address] Albumin/Globulin [Mass ratio] 1.7 {ratio} Normal 0.9-2.4 [facility] Comment on above: Performed By: #### L 100.0100, L500.4050, L700.8000 ####[facility] [address] [place], [address] ALK PHOS 67 U/L Normal 35-104 [facility] Comment on above: Performed By: #### L 100.0100, L500.4050, L700.8000 ####[facility] [address] [place], [address] ALT [Catalytic activity/Vol] 11 U/L Normal <=34 [facility] Comment on above: Performed By: #### L 100.0100, L500.4050, L700.8000 ####[facility] [address] [place], [address] AST [Catalytic activity/Vol] 19 U/L Normal <=31 [facility] Comment on above: Performed By: #### L 100.0100, L500.4050, L700.8000 ####[facility] [address] [place], [address] Bilirubin [Mass/Vol] 0.44 mg/dL Normal 0.00-1.30 [facility] Comment on above: Performed By: #### L 100.0100, L500.4050, L700.8000 ####[facility] [address] [place], [address] BUN/CRE 16.5 RATIO Normal 10-20 [facility] Comment on above: Performed By: #### L 100.0100, L500.4050, L700.8000 ####[facility] [address] [place], [address] Calcium [Mass/Vol] 9.2 mg/dL Normal 7.6-11.0 [facility] Comment on above: Performed By: #### L 100.0100, L500.4050, L700.8000 ####[facility] [address] [place], [address] Chloride [Moles/Vol] 104 mmol/L Normal 98-108 [facility] Comment on above: Performed By: #### L 100.0100, L500.4050, L700.8000 ####[facility] [address] [place], [address] CO2 [Moles/Vol] 20.5 mmol/L Low 21.0-32.0 [facility] Comment on above: Performed By: #### L 100.0100, L500.4050, L700.8000 ####[facility] [address] [place], [address] Creatinine [Mass/Vol] 0.96 mg/dL Normal 0.70-1.20 [facility] Comment on above: Performed By: #### L 100.0100, L500.4050, L700.8000 ####[facility] [address] [place], [address] ECRCL 95.78 ml/min Normal 50-250 [facility] Comment on above: Performed By: #### L 100.0100, L500.4050, L700.8000 ####[facility] [address] [place], [address] GAP 12 Normal 5-15 [facility] Comment on above: Performed By: #### L 100.0100, L500.4050, L700.8000 ####[facility] [address] [place], [address] GFR/1.73 sq M.predicted among non-blacks MDRD (S/P/Bld) [Vol rate/Area] 81 mL/min/{1.73_m2} Normal >60 [facility] Comment on above: Result Comment: mL/m in/1.73m2 CKD-EPI Creatinine Equation (2020) Performed By: #### L 100.0100, L500.4050, L700.8000 ####[facility] [address] [place], [address] Globulin (S) [Mass/Vol] 2.5 g/dL Normal 2.2-4.2 [facility] Comment on above: Performed By: #### L 100.0100, L500.4050, L700.8000 ####[facility] [address] [place], [address] Glucose [Mass/Vol] 109 mg/dL High 70-99 [facility] Comment on above: Performed By: #### L 100.0100, L500.4050, L700.8000 ####[facility] [address] [place], [address] Potassium [Moles/Vol] 3.9 mmol/L Normal 3.3-5.1 [facility] Comment on above: Performed By: #### L 100.0100, L500.4050, L700.8000 ####[facility] [address] [place], [address] Sodium [Moles/Vol] 137 mmol/L Normal 133-145 [facility] Comment on above: Performed By: #### L 100.0100, L500.4050, L700.8000 ####[facility] [address] [place], [address] T PROT 6.8 g/dL Normal 5.9-8.4 [facility] Comment on above: Performed By: #### L 100.0100, L500.4050, L700.8000 ####[facility] [address] [place], [address] Urea nitrogen [Mass/Vol] 16 mg/dL Normal 4-19 [facility] Comment on above: Performed By: #### L 100.0100, L500.4050, L700.8000 ####[facility] [address] [place], [address] Absolute lymphocyte countOrd ered By: Nikko Guerrero on 10-05-2024 Lymphocytes Auto (Unsp spec) [#/Vol] 3.23 10*3/uL 0.83-4.51 [facility] Absolute neutrophil countOrd ered By: Nikko Guerrero on 10-05-2024 Neutrophils (Bld) [#/Vol] 8.0 10*3/uL High 2.0-7.7 [facility] Anion gap in Serum or Plasma Ordered By: Nikko Guerrero on 10-05-2024 Anion gap [Moles/Vol] 12 mmol/L 5-15 [facility] Automated lymphocyte count a s percentage of total leukocytesOrdered By: Nikko Guerrero on 10-05-2024 Lymphocytes/100 WBC Auto (Unsp spec) 23.5 % 19-41 [facility] BUN/creatinine ratioOrdered By: Nikko Guerrero on 10-05-2024 Urea nitrogen/Creatinine [Mass ratio] 16.5 mg/mg 10-20 [facility] Basophil percentageOrdered B y: Nikko Guerrero on 10-05-2024 Basophils/100 WBC (Bld) 0.6 % 0-1 [facility] Bilirubin, totalOrdered By: Nikko Guerrero on 10-05-2024 Bilirubin [Mass/Vol] 0.44 mg/dL 0.00-1.30 [facility] CBC W/Diff, Automatedon 09-10 REACTIVE LYMPH 2+ Normal [facility] Comment on above: Performed By: #### L 100.0100, L500.4050, L700.8000 ####[facility] [address] [place], [address] Carbon dioxide, total [Moles /volume] in Central venous bloodOrdered By: Nikko Guerrero on 10-05-2024 CO2 [Moles/Vol] 20.5 mmol/L Low 21.0-32.0 [facility] Chloride assayOrdered By: Luís Guerrero on 10-05-2024 Chloride [Moles/Vol] 104 mmol/L 98-108 [facility] Emergency Department Summary on 10-05-2024 Emergency Department Summary [facility] Medical Records Department [address] [place] [address] Emergency Department Summary 10/05/24 MR#: [id number] Acct: [id number] Name: KATIE ROBB Rep #: [id number] : 1990 34 From: Nikko Guerrero MD PCP: Dr. Liv Matta MD Status:REG ER Location: ED HPI [...] symptoms. She called the nurse practitioner at [facility] who told her to come to the emergency department for evaluation. 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 ROS ED ROS Narrative Review of systems [...] EMR a (more content not included)... Normal [facility] Eosinophil percentageOrdered By: Nikko Guerrero on 10-05-2024 Eosinophils/100 WBC (Bld) 10.0 % High 0-5 [facility] Erythrocyte distribution wid th (RBC) [Ratio]Ordered By: Nikko Guerrero on 10-05-2024 Erythrocyte distribution width (RBC) [Entitic vol] 38.3 fL 35.1-43.9 [facility] Erythrocyte distribution wid th ratioOrdered By: Nikko Guerrero on 10-05-2024 Erythrocyte distribution width (RBC) [Ratio] 12.0 % 11.6-14.6 [facility] Erythrocyte distribution wid th standard deviationOrdered By: Nikko Guerrero on 10-05-2024 Erythrocyte distribution width (RBC) [Ratio] 38.3 fl 35.1-43.9 [facility] Estimation of creatinine elliot aranceOrdered By: Nikko Guerrero on 10-05-2024 Estimated Creatinine Clearance Calc 95.78 ml/min 50-250 [facility] GFR/1.73 sq M.predicted beto g non-blacks MDRD (S/P/Bld) [Vol rate/Area]Ordered By: Nikko Guerrero on 10-05-2024 Estimated GFR (MDRD) Non-Af Amer 81 >60 [facility] Comment on above: mL/min/1.73m2 CKD-EP I Creatinine Equation (2020) Glomerular filtration rate ( GFR) estimation/1.73 sq m using serum, plasma, or whole bOrdered By: Nikko Guerrero on 10-05-2024 GFR/1.73 sq M.predicted among non-blacks MDRD (S/P/Bld) [Vol rate/Area] 81 mL/min/{1.73_m2} >60 [facility] Comment on above: mL/min/1.73m2 CKD-EP I Creatinine Equation (2020) HCG ( test) QlOrder ed By: Nikko Guerrero on 10-05-2024 Human Chorionic Gonadotropin, Quant 60423 mIU/mL High <9 [facility] Comment on above: Gestational Age0.2-1 Week: 5-50 mIU/mL1-2 Weeks: 50-500 mIU/mL2-3 Weeks: 100-5000 mIU/mL3-4 Weeks: 500-10,000 mIU/mL4-5 Weeks:1000-50,000 mIU/mL5-6 Weeks: 10,000-100,000 mIU/mL6-8 Weeks: 15,000-200,000 mIU/mL2-3 Months:10,000-100,000 mIU/mL Hematocrit Auto (Bld) [Volum e fraction]Ordered By: Nikko Guerrero on 10-05-2024 Hematocrit (Bld) [Volume fraction] 40.3 % 37-47 [facility] Hemoglobin measurementOrdere d By: Nikko Guerrero on 10-05-2024 Hemoglobin (Bld) [Mass/Vol] 15.0 g/dL 12.0-15.0 [facility] Immature granulocytes/100 WB C Auto (Bld)Ordered By: Nikko Guerrero on 10-05-2024 Immature granulocytes/100 WBC (Bld) 0.500 % 0.0-0.9 [facility] Comment on above: IG% - Immature Granu locytes (promyelocytes, myelocytes and metamyelocytes) > 1% indicates that a LEFT SHIFT is Present. Laboratory - Chemistry and C hemistry - challengeOrdered By: Nikko Guerrero on 10-05-2024 AST [Catalytic activity/Vol] 19 U/L <32 [facility] Lymphocytes Auto (Unsp spec) [#/Vol]Ordered By: Nikko Guerrero on 10-05-2024 Lymphocytes (Bld) [#/Vol] 3.23 10*3/uL 0.83-4.51 [facility] Lymphocytes/100 WBC Auto (Un sp spec)Ordered By: Nikko Guerrero on 10-05-2024 Lymphocytes/100 WBC (Bld) 23.5 % 19-41 [facility] MCV (mean corpuscular volume ) determinationOrdered By: Nikko Guerrero on 10-05-2024 MCV (RBC) [Entitic vol] 87.4 fL 81-99 [facility] Mean corpuscular hemoglobin (MCH) determinationOrdered By: Nikko Guerrero on 10-05-2024 MCH (RBC) [Entitic mass] 32.5 pg High 27.0-32.0 [facility] Mean corpuscular hemoglobin concentration (MCHC) determinationOrdered By: Nikko Guerrero on 10-05-2024 MCHC (RBC) [Mass/Vol] 37.2 g/dL High 32-36 [facility] Mean platelet volume determi nationOrdered By: Nikko Guerrero on 10-05-2024 Platelet mean volume (Bld) [Entitic vol] 12.1 fL High 6.2-12.0 [facility] Monocyte percentageOrdered B y: Nikko Guerrero on 10-05-2024 Monocytes/100 WBC (Bld) 7.4 % 0-10 [facility] Neutrophil percentageOrdered By: Nikko Guerrero on 10-05-2024 Neutrophils/100 WBC (Bld) 58.0 % 47-70 [facility] Nucleated red blood cell per centageOrdered By: Nikko Guerrero on 10-05-2024 Nucleated RBC/100 WBC (Bld) [Ratio] 0 % 0-5 [facility] Platelet countOrdered By: Luís Guerrero on 10-05-2024 Platelets (Bld) [#/Vol] 191 10*3/uL 150-450 [facility] Potassium (Unsp spec) [Mass/ Vol]Ordered By: Nikko Guerrero on 10-05-2024 Potassium [Moles/Vol] 3.9 mmol/L 3.3-5.1 [facility] Potassium measurement (mass/ volume)Ordered By: Nikko Guerrero on 10-05-2024 Potassium (Unsp spec) [Mass/Vol] 3.9 mmol/L 3.3-5.1 [facility] RBC Auto (Bld) [#/Vol]Ordere d By: Nikko Guerrero on 10-05-2024 RBC (Bld) [#/Vol] 4.61 10*6/uL 4.2-5.4 [facility] Reactive lymphocyte countOrd ered By: Nikko Guerrero on 10-05-2024 Reactive Lymphocytes 2+ [facility] Serum creatinine measurement (mass/volume)Ordered By: Nikko Guerrero on 10-05-2024 Creatinine [Mass/Vol] 0.96 mg/dL 0.70-1.20 [facility] Serum globulin measurementOr dered By: Nikko Guerrero on 10-05-2024 Globulin (S) [Mass/Vol] 2.5 g/dL 2.2-4.2 [facility] Serum glucose measurement (m ass/volume)Ordered By: Nikko Guerrero on 10-05-2024 Glucose [Mass/Vol] 109 mg/dL High 70-99 [facility] Serum human chorionic gonado tropin detection for pregnancyOrdered By: Nikko Guerrero on 10-05-2024 HCG ( test) [place]l [address] mIU/mL High <9 [facility] Comment on above: Gestational Age0.2-1 Week: 5-50 mIU/mL1-2 Weeks: 50-500 mIU/mL2-3 Weeks: 100-5000 mIU/mL3-4 Weeks: 500-10,000 mIU/mL4-5 Weeks:1000-50,000 mIU/mL5-6 Weeks: 10,000-100,000 mIU/mL6-8 Weeks: 15,000-200,000 mIU/mL2-3 Months:10,000-100,000 mIU/mL Serum or plasma alanine heath otransferase (ALT) measurementOrdered By: Nikko Guerrero on 10-05-2024 ALT [Catalytic activity/Vol] 11 U/L <35 [facility] Serum or plasma albumin viola urement (mass/volume)Ordered By: Nikko Guerrero on 10-05-2024 Albumin [Mass/Vol] 4.3 g/dL 3.5-5.0 [facility] Serum or plasma albumin/glob ulin mass ratioOrdered By: Nikko Guerrero on 10-05-2024 Albumin/Globulin [Mass ratio] 1.7 {ratio} 0.9-2.4 [facility] Serum or plasma alkaline danial sphatase measurementOrdered By: Nikko Guerrero on 10-05-2024 ALP [Catalytic activity/Vol] 67 U/L 35-104 [facility] Serum or plasma calcium viola urement (mass/volume)Ordered By: Nikko Guerrero on 10-05-2024 Calcium [Mass/Vol] 9.2 mg/dL 7.6-11.0 [facility] Serum or plasma urea nitroge n measurement (mass/volume)Ordered By: Nikko Guerrero on 10-05-2024 Urea nitrogen [Mass/Vol] 16 mg/dL 4-19 [facility] Sodium levelOrdered By: Nikko Guerrero on 10-05-2024 Sodium [Moles/Vol] 137 mmol/L 133-145 [facility] Total proteinOrdered By: Abbi Guerrero on 10-05-2024 Protein [Mass/Vol] 6.8 g/dL 5.9-8.4 [facility] Transvaginal w/Preg USon Transvaginal w/Preg US [facility] [address] [place] [address] Transvaginal w/Preg US MR#: [id number] Acct: [id number] Name: KATIE ROBB Rep #: [id number] : 1990 F 34 From: Bj Alvarado MD PCP: Dr. Liv Matta MD Status: [facility] ER Study: Transvaginal w/Preg US Date of Exam: 10/05/24 Exam# [id number] Ordering Dr: Nikko Guerrero MD PROCEDURE: TRANSVAGINAL [...] and unremarkable. DIMENSIONS: Parameter Measurement / EGA [place] Rump Length: 16 mm/7 weeks 6 days Gestational Sac: 18 mm/6 weeks 5 days Yolk Sac: 4 mm/ ESTIMATED GESTATIONAL AGE: By Ultrasound: 7 weeks 2 days By LMP: 8 weeks 4 days ESTIMATED DATE OF DELIVERY: By Ultrasound: 05/22/2025 By LMP: 05/13/2025 US/Transvaginal w/Preg US IMPRESSION: UNREMARKABLE FIRST TRIMESTER ULTRASOUND. Reading Location: [facility] CC: Dr. Nikko Guerrero MD; Dr. Liv Matta MD Spiritual Advisor: Signed Normal [facility] White blood cell (WBC) count Ordered By: Nikko Guerrero on 10-05-2024 WBC (Bld) [#/Vol] 13.7 10*3/uL High 4.4-11.0 [facility] hCG Titer Quant., Serumon HCG QUANT. 86032 mIU/mL High <9 non-preg [facility] Comment on above: Result Comment: Gest ational Age 0.2-1 Week: 5-50 mIU/mL 1-2 Weeks: 50-500 mIU/mL 2-3 Weeks: 100-5000 mIU/mL 3-4 Weeks: 500-10,000 mIU/mL 4-5 Weeks:1000-50,000 mIU/mL 5-6 Weeks: 10,000-100,000 mIU/mL 6-8 Weeks: 15,000-200,000 mIU/mL 2-3 Months:10,000-100,000 mIU/mL Performed By: #### L 100.0100, L500.4050, L700.8000 ####[facility] [address] [place], [address] Chiropractic Reporton 2024 Chiropractic Report [facility] [address] [place] [address] OFFICE VISIT Date of Service: 07/22/24 MR#: [id number] Acct: [id number] Name: KATIE ROBB Rep #: [id number] : 1990 Provider: MARCE Dela Cruz Age/Sex: 34/F Location: [facility] Status: Signed Intake Vital Signs 05/01/24 14:31 [...] tab PO QDAY 05/01/24 07/22/24 Hi story [facility] Medical History (Updated 07/22/24 @ 15:[address] Aruna Gomez DC) Segmental dysfunction of thoracic region Segmental [...] 3-4 times per week duration: 30-45 minutes/day diego/druze: None seatbelt use: always do you feel safe at home: Yes additional social history: - [facility] Chief Complaint: Back pain Visit Number: 1 [...] floor and lifting her. 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 Normal [facility] Internal Medicine Office Vis lucho 04-30-2024 Internal Medicine Office Visit [facility] [address] [place] [address] [place] [address] OFFICE VISIT Date of Service: 05/01/24 MR#: [id number] Acct: [id number] Name: KATIE ROBB Rep #: [id number] : 1990 Provider: Dr. Liv núñez MD Age/Sex: 34/F Location: [facility] Status: Signed Intake Vital Signs 03/16/23 13:28 [...] No Allergies No Known Allergies Allergy (Verified 11/21/24 14:27) Medications ???Medication ???Instructions ???Recorded ???Confirmed ???Type desogestrel 0.15 mg-ethinyl 1 tab PO QDAY 03/27/24 05/01/24 History estradiol 0.03 mg tablet (Apri) multivitamin 1 tab PO QDAY 05/01/24 05/01/24 History PFSH Medical History (Updated 05/01/24 @ 15:[address] Liv Matta MD) Hypothyroid hemorrhage Retained products of conception DIC (disseminated intravascular coagulation) Acute postoperative anemia due to greater than expected blood loss Vaginal delivery Infertility COVID-19 Recurrent bacterial infection Low-lying placenta Raynauds syndrome Endometriosis Conceived by in vitro fertilization Surgical History (Updated 05/01/24 @ 14:[address] Liv Matta MD) H/O dilation and curettage History of surgery Hx of wisdom tooth extraction Hx of tonsillectomy Hx of laparoscopy Family History (Updated 05/01/24 @ 14:[address] Liv Matta MD) Father Lung cancer, Onset Age: 42 Mother Lymphoma, Onset Age: 54 Thyroid disorder Social History (Updated 05/01/24 @ 14:[address] Liv Matta MD) adopted: No household members: spouse [...] 3-4 times per week duration: 30-45 minutes/day diego/druze: None seatbelt use: always do you feel [...] constipation, cramping, (more content not included)... Normal [facility] HIV 1 and HIV-2 antibody ass ay with HIV-1 p24 antigen detectionOrdered By: Christina Valera on 10-05-2023 HIV 1+2 Ab+HIV1 p24 Ag IA Ql Non-Reactive Nonreactive [facility] Neisseria gonorrhoeae genita l PCROrdered By: Christina Valera on 10-05-2023 N. gonorrhoeae DNA KEELEY+probe Ql (Genital specimen) [facility] No Panel InformationOrdered By: Christina Valera on 10-05-2023 Chlamydia trachomatis (PCR) [facility] Hepatitis B Surface Antigen Non-Reactive Nonreactive [facility] Hepatitis C Antibody Non-Reactive Nonreactive [facility] Comment on above: Non Reactive: < 0.8 Equivocal: >/= 0.8 to < 1.0 Reactive: >/= 1.0The CDC requires that a reactive/equivocal HCV antibody result be sent out for confirmation. HCV Quant by PCR testing. Rubella IgG Antibody Reactive Nonreactive [facility] Comment on above: Antibody Results Int erpretation of Immune Status Non Reactive Presumed Non-Immune Equivocal Equivocal Reactive Presumed Immune Serum Treponema species anti body detectionOrdered By: Christina Valera on 10-05-2023 Treponema sp Ab Ql (S) Non-Reactive [facility] Serum or plasma thyroid stim ulating hormone (TSH) measurement (units/volume)Ordered By: Christina Valera on 10-05-2023 TSH Qn 2.02 uIU/mL 0.358-3.74 [facility] Thin prep Papanicolaou smear with manual screeningOrdered By: Christina Valera on 10-05-2023 Thin prep Papanicolaou smear with manual screening 1.05 ng/dL 0.76-1.46 [facility] 36on 07-27-2023 [address] [facility] 36on 07-26-2023 36 Pt given orders for Complete PFT on 03/15/23. No response from pt after several attempts to sched test. Okay to close orders? Normal [facility] Office Visiton 03-15-2023 Follow-up visit [id number] Liz Robb 1990 F Date Provider Department Center 03/15/2023 [id number]-PYSOPPDEEJAY GLASGOW [facility] Family History Problem Relation Age of Onset No Known Problems Brother Hypertension Mother Cancer Mother Comments: lymphoma Thyroid disease Mother Diabetes Mother Cancer Father Comments: lung cancer, non-smoker Thyroid disease Sister Family Status - Relation Status Age at Brother Alive Mother Alive Father Sister Alive Level of Service:61830 OR OFFICE/OUTPATIENT ESTABLISHED LOW MDM 20-29 MIN Reason for Visit and Comments: Asthma [148] - Wants tested Normal [facility] PATINSon 10-05-2023 PATINS A PFT study has been ordered [...] to get it scheduled. Their number is [phone]. Normal [facility] Progress Noteon 03-15-2023 Progress Note [facility] [address] [facility] [address] Dept: [phone] Dept Loc: [phone] Visit type: Established Patient Reason for Visit: [...] be sent for formal PFT study through [facility] per her request. Follow up if symptoms worsen or fail to improve, for Next scheduled follow-up. Subjective HPI this is a 33-year-old female with an underlying history of asthma contacted [facility] yesterday for next day appointment evaluation for [...] jul 14.3, November 20.9, Jan 20., feb 21., Currently the patient has no acute distress no shortness of breath currently no chest pain palpitations as needed for "tightness in her chest. She denies any current [...] 37.2 ?C (98.9 ?F) (Temporal) Ht 5' 7" (1.702 m) Wt 181 lb (82.1 kg) [...] equal, r (more content not included)... Normal [facility] 36on 03-14-2023 36 S: Patient called [facility] clinical access center with complaint of exacerbation [...] you have signs or symptoms consistent with COVID-"no" 2) Have you been exposed to COVID in last 5 days-"no" 3) Have you tested positive for COVID in last 5 days-"no" Home care advise given to patient: When [...] wants to be seen Protocols used: Asthma Ooeqby-GWUBE-AM [facility] Absolute lymphocyte countOrd ered By: Nat Gomez on 02-27-2023 Lymphocytes Auto (Unsp spec) [#/Vol] 2.58 10*3/uL 0.83-4.51 [facility] Basophil percentageOrdered B y: Nat Gomez on 02-27-2023 Basophils/100 WBC (Bld) 0.7 % 0-1 [facility] Eosinophils/100 WBC (Bld) 9.2 % 0-5 [facility] Neutrophils (Bld) [#/Vol] 3.6 10*3/uL 2.0-7.7 [facility] Neutrophils/100 WBC (Bld) 48.3 % 47-70 [facility] WBC (Bld) [#/Vol] 7.4 10*3/uL 4.4-11.0 [facility] Blood erythrocytes count (nu mber/volume)Ordered By: Nat Gomez on 02-27-2023 RBC (Bld) [#/Vol] 2.97 10*6/uL 4.2-5.4 [facility] Blood hemoglobin measurement (mass/volume)Ordered By: Nat Gomez on 02-27-2023 Hemoglobin (Bld) [Mass/Vol] 9.5 g/dL 12.0-15.0 [facility] Blood lymphocytes/100 leukoc ytesOrdered By: Nat Gomez on 02-27-2023 Lymphocytes/100 WBC (Bld) 34.9 % 19-41 [facility] Blood monocytes/100 leukocyt esOrdered By: Nat Gomez on 02-27-2023 Monocytes/100 WBC (Bld) 6.5 % 0-10 [facility] Blood platelet mean volumeOr dered By: Nat Gomez on 02-27-2023 Platelet mean volume (Bld) [Entitic vol] 11.8 fL 6.2-12.0 [facility] Determination of erythrocyte mean corpuscular volume (MCV)Ordered By: Nat Gomez on 02-27-2023 MCV (RBC) [Entitic vol] 93.9 fL 81-99 [facility] Hematocrit Auto (Bld) [Volum e fraction]Ordered By: Nat Gomez on 02-27-2023 Hematocrit (Bld) [Volume fraction] 27.9 % 37-47 [facility] Laboratory - Hematology and Cell countsOrdered By: Nat Gomez on 02-27-2023 Erythrocyte distribution width (RBC) [Entitic vol] 47.0 fL 35.1-43.9 [facility] Erythrocyte distribution width (RBC) [Ratio] 13.9 % 11.6-14.6 [facility] Immature granulocytes/100 WBC (Bld) 0.400 % 0.0-0.9 [facility] Comment on above: IG% - Immature Granu locytes (promyelocytes, myelocytes and metamyelocytes) > 1% indicates that a LEFT SHIFT is Present. MCH (RBC) [Entitic mass] 32.0 pg 27.0-32.0 [facility] Nucleated RBC/100 WBC (Bld) [Ratio] 0 % 0-5 [facility] MCHC Auto (RBC) [Mass/Vol]Or dered By: Nat Gomez on 02-27-2023 MCHC (RBC) [Mass/Vol] 34.1 g/dL 32-36 [facility] Platelets bldOrdered By: Dami Gomez on 02-27-2023 Platelets (Bld) [#/Vol] 174 10*3/uL 150-450 [facility] Basophil percentageOrdered B y: Nat Gomez on 02-26-2023 Bilirubin [Mass/Vol] 0.40 mg/dL 0.20-1.00 [facility] Comment on above: For patients on eltr ombopag therapy, use of Dimension Canalou TBIL is not recommended. Chloride [Moles/Vol] 112 mmol/L 98-107 [facility] Glucose [Mass/Vol] 97 mg/dL 74-106 [facility] Potassium [Moles/Vol] 4.0 mmol/L 3.5-5.1 [facility] Protein [Mass/Vol] 4.6 g/dL 6.4-8.2 [facility] Sodium [Moles/Vol] 141 mmol/L 136-145 [facility] Direct bilirubinOrdered By: Nat Gomez on 02-26-2023 Bilirubin.direct [Mass/Vol] 0.15 mg/dL 0.00-0.30 [facility] INR in Blood by Coagulation assayOrdered By: Nat Gomez on 02-26-2023 INR Coag (Bld) [Relative time] 1.2 {INR} [facility] Laboratory - Chemistry and C hemistry - challengeOrdered By: Nat Gomez on 02-26-2023 ALP [Catalytic activity/Vol] 77 U/L 45-117 [facility] ALT [Catalytic activity/Vol] 16 U/L 13-56 [facility] CO2 [Moles/Vol] 26.0 mmol/L 21.0-32.0 [facility] Globulin (S) [Mass/Vol] 2.1 g/dL 2.2-4.2 [facility] Urea nitrogen/Creatinine [Mass ratio] 8.3 mg/mg 10-20 [facility] Laboratory - CoagulationOrde red By: Nat Gomez on 02-26-2023 aPTT Coag (Bld) [Time] 29.0 s 24.1-36.2 [facility] PT Coag (PPP) [Time] 15.2 s 11.7-14.9 [facility] No Panel InformationOrdered By: Nat Gomez on 02-26-2023 Estimated Creatinine Clearance Calc 82.57 ml/min [facility] Estimated GFR (MDRD) Amer 87 mL/min >60 [facility] Comment on above: GFR Calc Estimated GFR (MDRD) Non-Af Amer 72 mL/min >60 [facility] Comment on above: Non- GFR Calc Fibrinogen 201 mg/dl 203-444 [facility] No Panel InformationOrdered By: Valentine Urbina on 02-26-2023 D-Dimer Quantitative (PE/DVT) 0.82 FEU/ug/m 0.27-0.49 [facility] Comment on above: D-Dimer ELEVATED (>0 .49): Additional studies and clinicalassessments are indicated to conclude diagnosis of:Deep Vein Thrombosis (DVT) or Pulmonary Embolism (PE) Serum or plasma albumin viola urement (mass/volume)Ordered By: Nat Gomez on 02-26-2023 Albumin [Mass/Vol] 2.5 g/dL 3.2-5.0 [facility] Serum or plasma calcium viola urement (mass/volume)Ordered By: Nat Gomez on 02-26-2023 Calcium [Mass/Vol] 7.8 mg/dL 8.5-10.1 [facility] Serum or plasma creatinine m easurement (mass/volume)Ordered By: Nat Gomez on 02-26-2023 Creatinine [Mass/Vol] 0.96 mg/dL 0.55-1.02 [facility] Comment on above: The validity of the calculated GFR & GFRAA in patients over 70 years has not been determined. Clinical correlation is essential. Serum or plasma urea nitroge n measurement (mass/volume)Ordered By: Nat Gomez on 02-26-2023 Urea nitrogen [Mass/Vol] 8 mg/dL 7-18 [facility] Thin prep Papanicolaou smear with manual screeningOrdered By: Nat Gomez on 02-26-2023 Thin prep Papanicolaou smear with manual screening 12 U/L 15-37 [facility] Thin prep Papanicolaou smear with manual screening 3 5-15 [facility] Absolute lymphocyte countOrd ered By: Elliot Hill on 02-25-2023 Lymphocytes Auto (Unsp spec) [#/Vol] 3.53 10*3/uL 0.83-4.51 [facility] Basophil percentageOrdered B y: Elliot Hill on 02-25-2023 Basophils/100 WBC (Bld) 1.1 % 0-1 [facility] Chloride [Moles/Vol] 107 mmol/L 98-107 [facility] Eosinophils/100 WBC (Bld) 10.9 % 0-5 [facility] Glucose [Mass/Vol] 97 mg/dL 74-106 [facility] Neutrophils (Bld) [#/Vol] 4.7 10*3/uL 2.0-7.7 [facility] Neutrophils/100 WBC (Bld) 45.9 % 47-70 [facility] Potassium [Moles/Vol] 3.8 mmol/L 3.5-5.1 [facility] Sodium [Moles/Vol] 140 mmol/L 136-145 [facility] WBC (Bld) [#/Vol] 10.3 10*3/uL 4.4-11.0 [facility] Blood erythrocytes count (nu mber/volume)Ordered By: Elliot Hill on 02-25-2023 RBC (Bld) [#/Vol] 4.02 10*6/uL 4.2-5.4 [facility] Blood hemoglobin measurement (mass/volume)Ordered By: Elliot Hill on 02-25-2023 Hemoglobin (Bld) [Mass/Vol] 13.6 g/dL 12.0-15.0 [facility] Blood lymphocytes/100 leukoc ytesOrdered By: lEliot Hill on 02-25-2023 Lymphocytes/100 WBC (Bld) 34.3 % 19-41 [facility] Blood monocytes/100 leukocyt esOrdered By: Elliot Hill on 02-25-2023 Monocytes/100 WBC (Bld) 7.4 % 0-10 [facility] Blood platelet mean volumeOr dered By: Elliot Hill on 02-25-2023 Platelet mean volume (Bld) [Entitic vol] 11.8 fL 6.2-12.0 [facility] Determination of erythrocyte mean corpuscular volume (MCV)Ordered By: Elliot Hill on 02-25-2023 MCV (RBC) [Entitic vol] 94.5 fL 81-99 [facility] Hematocrit Auto (Bld) [Volum e fraction]Ordered By: Elliot Hill on 02-25-2023 Hematocrit (Bld) [Volume fraction] 38.0 % 37-47 [facility] INR in Blood by Coagulation assayOrdered By: Elliot Hill on 02-25-2023 INR Coag (Bld) [Relative time] 1.0 {INR} [facility] Laboratory - Chemistry and C hemistry - challengeOrdered By: Elliot Hill on 02-25-2023 CO2 [Moles/Vol] 27.0 mmol/L 21.0-32.0 [facility] Urea nitrogen/Creatinine [Mass ratio] 11.4 mg/mg 10-20 [facility] Laboratory - CoagulationOrde red By: Elliot Hill on 02-25-2023 aPTT Coag (Bld) [Time] 32.3 s 24.1-36.2 [facility] PT Coag (PPP) [Time] 13.5 s 11.7-14.9 [facility] Laboratory - Hematology and Cell countsOrdered By: Elliot Hill on 02-25-2023 Erythrocyte distribution width (RBC) [Entitic vol] 47.0 fL 35.1-43.9 [facility] Erythrocyte distribution width (RBC) [Ratio] 13.5 % 11.6-14.6 [facility] Immature granulocytes/100 WBC (Bld) 0.400 % 0.0-0.9 [facility] Comment on above: IG% - Immature Granu locytes (promyelocytes, myelocytes and metamyelocytes) > 1% indicates that a LEFT SHIFT is Present. MCH (RBC) [Entitic mass] 33.8 pg 27.0-32.0 [facility] Nucleated RBC/100 WBC (Bld) [Ratio] 0 % 0-5 [facility] MCHC Auto (RBC) [Mass/Vol]Or dered By: Elliot Hill on 02-25-2023 MCHC (RBC) [Mass/Vol] 35.8 g/dL 32-36 [facility] No Panel InformationOrdered By: Elliot Hill on 02-25-2023 Estimated Creatinine Clearance Calc 69.53 ml/min [facility] Estimated GFR (MDRD) Amer 71 mL/min >60 [facility] Comment on above: GFR Calc Estimated GFR (MDRD) Non-Af Amer 59 mL/min >60 [facility] Comment on above: Non- GFR Calc Platelets bldOrdered By: Skip Hill on 02-25-2023 Platelets (Bld) [#/Vol] 273 10*3/uL 150-450 [facility] Serum or plasma calcium viola urement (mass/volume)Ordered By: Elliot Hill on 02-25-2023 Calcium [Mass/Vol] 9.3 mg/dL 8.5-10.1 [facility] Serum or plasma creatinine m easurement (mass/volume)Ordered By: Elliot Hill on 02-25-2023 Creatinine [Mass/Vol] 1.14 mg/dL 0.55-1.02 [facility] Comment on above: The validity of the calculated GFR & GFRAA in patients over 70 years has not been determined. Clinical correlation is essential. Serum or plasma urea nitroge n measurement (mass/volume)Ordered By: Elliot Hill on 02-25-2023 Urea nitrogen [Mass/Vol] 13 mg/dL -18 [facility] Thin prep Papanicolaou smear with manual screeningOrdered By: Elliotmatt Hill on 02-25-2023 Thin prep Papanicolaou smear with manual screening 6 - [facility] Basophil percentageOrdered B y: Niya Armstrong on 02-03-2023 WBC (Bld) [#/Vol] 18.7 10*3/uL 4.4-11.0 [facility] Blood erythrocytes count (nu mber/volume)Ordered By: Niya Armstrong on 02-03-2023 RBC (Bld) [#/Vol] 3.15 10*6/uL 4.2-5.4 [facility] Blood hemoglobin measurement (mass/volume)Ordered By: Niya Armstrong on 02-03-2023 Hemoglobin (Bld) [Mass/Vol] 11.0 g/dL 12.0-15.0 [facility] Blood platelet mean volumeOr dered By: Niya Armstrong on 02-03-2023 Platelet mean volume (Bld) [Entitic vol] 13.0 fL 6.2-12.0 [facility] Determination of erythrocyte mean corpuscular volume (MCV)Ordered By: Niya Armstrong on 02-03-2023 MCV (RBC) [Entitic vol] 95.9 fL 81-99 [facility] Hematocrit Auto (Bld) [Volum e fraction]Ordered By: Niya Armstrong on 02-03-2023 Hematocrit (Bld) [Volume fraction] 30.2 % 37-47 [facility] Laboratory - Hematology and Cell countsOrdered By: Niya Armstrong on 02-03-2023 Erythrocyte distribution width (RBC) [Entitic vol] 57.9 fL 35.1-43.9 [facility] Erythrocyte distribution width (RBC) [Ratio] 17.0 % 11.6-14.6 [facility] MCH (RBC) [Entitic mass] 34.9 pg 27.0-32.0 [facility] MCHC Auto (RBC) [Mass/Vol]Or dered By: Niya Armstrong on 02-03-2023 MCHC (RBC) [Mass/Vol] 36.4 g/dL 32-36 [facility] Platelets bldOrdered By: Joseph Armstrong on 02-03-2023 Platelets (Bld) [#/Vol] 198 10*3/uL 150-450 [facility] Absolute lymphocyte countOrd ered By: Nat Gomez on 02-01-2023 Lymphocytes Auto (Unsp spec) [#/Vol] 4.01 10*3/uL 0.83-4.51 [facility] Basophil percentageOrdered B y: Nat Gomez on 02-01-2023 Basophils/100 WBC (Bld) 0.6 % 0-1 [facility] Eosinophils/100 WBC (Bld) 1.7 % 0-5 [facility] Neutrophils (Bld) [#/Vol] 9.0 10*3/uL 2.0-7.7 [facility] Neutrophils/100 WBC (Bld) 57.9 % 47-70 [facility] Blood lymphocytes/100 leukoc ytesOrdered By: Nat Gomez on 02-01-2023 Lymphocytes/100 WBC (Bld) 25.8 % 19-41 [facility] Blood manual differential co mment interpretation (narrative result)Ordered By: Nat Gomez on 02-01-2023 Manual differential comment Ruddy (Bld) [Interp] SEE COMMENT [facility] Comment on above: MONOCYTOSIS NOTED Blood monocytes/100 leukocyt esOrdered By: Nat Gomez on 02-01-2023 Monocytes/100 WBC (Bld) 12.3 % 0-10 [facility] Blood platelet adequacy dete ction by light microscopyOrdered By: Nat Gomez on 02-01-2023 Platelets LM Ql (Bld) ADEQUATE ADEQ [facility] Laboratory - Hematology and Cell countsOrdered By: Nat Gomez on 02-01-2023 Anisocytosis Ql (Bld) RARE [facility] Immature granulocytes/100 WBC (Bld) 1.700 % 0.0-0.9 [facility] Comment on above: IG% - Immature Granu locytes (promyelocytes, myelocytes and metamyelocytes) > 1% indicates that a LEFT SHIFT is Present. Nucleated RBC/100 WBC (Bld) [Ratio] 1.2 % 0-5 [facility] Macrocytes detectionOrdered By: Nat Gomez on 02-01-2023 Macrocytes Ql (Bld) RARE [facility] RBC morphologyOrdered By: Kristopher Gomez on 02-01-2023 RBC morphology finding Nom (Bld) N CHROM NORMAL NORM C&C [facility] Review by pathologistOrdered By: Nat Gomez on 02-01-2023 Pathologist review Ruddy (Unsp spec) [Interp] Reviewed [facility] Comment on above: Previous reported re sult: Nirali bourne Edited by: MICHAEL on 02/05/23:0937Leukocytosis.Neutrophilic left shift.Clinical correlation necessary.Maged Pena M.D. 02/05/23Pathologist comment added AMENDED REPORT 02/05/23 [id number] PATH REV previously reported as: Nirali bourne Serum Treponema species anti body detectionOrdered By: Nat Gomez on 02-01-2023 Treponema sp Ab Ql (S) Non-Reactive [facility] Laboratory - Chemistry and C hemistry - challengeon 01-29-2023 Glucose Ql (U) Negative [facility] Laboratory - Urinalysison Protein Ql (U) Negative [facility] Laboratory - Chemistry and C hemistry - challengeon 01-22-2023 Glucose Ql (U) Negative [facility] Laboratory - Urinalysison Protein Ql (U) Negative [facility] Laboratory - Microbiology an d Antimicrobial susceptibilityon 01-16-2023 SARS-CoV-2 (COVID-19) RNA KEELEY+probe Ql (Unsp spec) Detected [facility] No Panel Informationon 01-16 POC Nasal Swab Influenza A,B Not detected [facility] POC Nasal Swab RSV Not detected [facility] Laboratory - Chemistry and C hemistry - challengeon 01-10-2023 Glucose Ql (U) Negative [facility] Laboratory - Urinalysison Protein Ql (U) Negative [facility] No Panel InformationOrdered By: Paola Voss on 01-10-2023 Group B Streptococcus Culture Group B Beta Streptococcus is not isolated. [facility] Laboratory - Chemistry and C hemistry - challengeon 12-14-2022 Glucose Ql (U) Negative [facility] Laboratory - Urinalysison Protein Ql (U) Negative [facility] Laboratory - Chemistry and C hemistry - challengeOrdered By: Dr. Voss on 11-29-2022 Free T4 [Mass/Vol] 0.84 ng/dL 0.76-1.46 [facility] Laboratory - Chemistry and C hemistry - challengeon 11-29-2022 Glucose Ql (U) Negative [facility] Laboratory - Urinalysison Protein Ql (U) Negative [facility] No Panel InformationOrdered By: Dr. Voss on 11-29-2022 Thyroid Stimulating Hormone (TSH) 0.90 uIU/mL 0.358-3.74 [facility] Absolute lymphocyte countOrd ered By: Niya Armstrong on 11-16-2022 Lymphocytes Auto (Unsp spec) [#/Vol] 2.73 10*3/uL 0.83-4.51 [facility] Basophil percentageOrdered B y: Niya Armstrong on 11-16-2022 Basophils/100 WBC (Bld) 0.6 % 0-1 [facility] Eosinophils/100 WBC (Bld) 2.7 % 0-5 [facility] Neutrophils (Bld) [#/Vol] 10.4 10*3/uL 2.0-7.7 [facility] Neutrophils/100 WBC (Bld) 69.5 % 47-70 [facility] WBC (Bld) [#/Vol] 14.9 10*3/uL 4.4-11.0 [facility] Blood erythrocytes count (nu mber/volume)Ordered By: Niya Armstrong on 11-16-2022 RBC (Bld) [#/Vol] 3.66 10*6/uL 4.2-5.4 [facility] Blood hemoglobin measurement (mass/volume)Ordered By: Niya Armstrong on 11-16-2022 Hemoglobin (Bld) [Mass/Vol] 12.9 g/dL 12.0-15.0 [facility] Blood lymphocytes/100 leukoc ytesOrdered By: Niya Armstrong on 11-16-2022 Lymphocytes/100 WBC (Bld) 18.3 % 19-41 [facility] Blood monocytes/100 leukocyt esOrdered By: Niya Armstrong on 11-16-2022 Monocytes/100 WBC (Bld) 7.0 % 0-10 [facility] Blood platelet mean volumeOr dered By: Niya Armstrong on 11-16-2022 Platelet mean volume (Bld) [Entitic vol] 11.9 fL 6.2-12.0 [facility] Determination of erythrocyte mean corpuscular volume (MCV)Ordered By: Niya Armstrong on 11-16-2022 MCV (RBC) [Entitic vol] 97.3 fL 81-99 [facility] Gestational diabetes screen 1-hour screen with 50g oral glucose loadOrdered By: Niya Armstrong on 11-16-2022 Glucose 1 Hr post 50 g glucose PO [Mass/Vol] 134 mg/dL 70-140 [facility] HIV 1 and HIV-2 antibody ass ay with HIV-1 p24 antigen detectionOrdered By: Niya Armstrong on 11-16-2022 HIV 1+2 Ab+HIV1 p24 Ag IA Ql Non-Reactive Nonreactive [facility] Hematocrit Auto (Bld) [Volum e fraction]Ordered By: Niya Armstrong on 11-16-2022 Hematocrit (Bld) [Volume fraction] 35.6 % 37-47 [facility] Laboratory - Hematology and Cell countsOrdered By: Niya Armstrong on 11-16-2022 Erythrocyte distribution width (RBC) [Entitic vol] 56.6 fL 35.1-43.9 [facility] Erythrocyte distribution width (RBC) [Ratio] 15.9 % 11.6-14.6 [facility] Immature granulocytes/100 WBC (Bld) 1.900 % 0.0-0.9 [facility] Comment on above: IG% - Immature Granu locytes (promyelocytes, myelocytes and metamyelocytes) > 1% indicates that a LEFT SHIFT is Present. MCH (RBC) [Entitic mass] 35.2 pg 27.0-32.0 [facility] Nucleated RBC/100 WBC (Bld) [Ratio] 0.2 % 0-5 [facility] MCHC Auto (RBC) [Mass/Vol]Or dered By: Niya Armstrong on 11-16-2022 MCHC (RBC) [Mass/Vol] 36.2 g/dL 32-36 [facility] Platelets bldOrdered By: Joseph Armstrong on 11-16-2022 Platelets (Bld) [#/Vol] 203 10*3/uL 150-450 [facility] Serum Treponema species anti body detectionOrdered By: Niya Armstrong on 11-16-2022 Treponema sp Ab Ql (S) Non-Reactive [facility] Culture, urineOrdered By: Kieran Armstrong on 10-28-2022 Bacteria identified Cx Nom (U) Positive [facility] Thin prep Papanicolaou smear with manual screeningOrdered By: Niya Armstrong on 10-28-2022 Genital Culture G. vaginalis (Presumptive) [facility] Culture, urineOrdered By: Kieran Armstrong on 10-26-2022 Bacteria identified Cx Nom (U) Positive [facility] Gram stain for investigation of transfusion reactionOrdered By: Niya Armstrong on 10-26-2022 Microscopic observation Gram stain Nom (Unsp spec) [facility] Gram stain for investigation of transfusion reactionOrdered By: Niya Armstrong on 10-25-2022 Microscopic observation Gram stain Nom (Unsp spec) [facility] Laboratory - Chemistry and C hemistry - challengeon 10-25-2022 Glucose Ql (U) Negative [facility] Laboratory - Urinalysison Protein Ql (U) Negative [facility] Thin prep Papanicolaou smear with manual screeningOrdered By: Niya Armstrong on 10-25-2022 Genital Culture G. vaginalis (Presumptive) [facility] Laboratory - Chemistry and C hemistry - challengeon 09-27-2022 Glucose Ql (U) Negative [facility] Laboratory - Urinalysison Protein Ql (U) Negative [facility] Laboratory - Chemistry and C hemistry - challengeOrdered By: Julia Chavez on 08-29-2022 Free T4 [Mass/Vol] 1.00 ng/dL 0.76-1.46 [facility] Laboratory - Chemistry and C hemistry - challengeon 08-29-2022 Glucose Ql (U) Negative [facility] [facility] - Urinalysison Protein Ql (U) Negative [facility] No Panel InformationOrdered By: Julia Chavez on 08-29-2022 Miscellaneous Test See comment [facility] er [facility] Comment on above: TEST RESULTS LIMITSA FP, [...] Customer Services to discuss available options. The [employer] recommends amniocentesis be offered to women age 35 and older.Comment: Nova Baer, Ph.D., DABCCDirectorReferences: Available Upon Request.Multiples Of Median Cutoffs For AFP ElevationsSingleton 2.5 Black 2.8IDD 2.0 Twins 4.5 Abbreviation DefinitionsIDD - Insulin Dep DiabetesOSBR - Open Spina Bifida RiskFor further inquiries contact [facility] [facility] at [phone].This test was developed and its performance characteristicsdetermined by [facility]. It has not been cleared or approvedby the Food and Drug Administration. TESTING PERFORMED AT [facility]. ORIGINAL REPORT ON FILE IN LAB CONTAINS ADDITIONAL TEST SITE INFORMATION. Thyroid Stimulating Hormone (TSH) 0.92 uIU/mL 0.358-3.74 [facility] Laboratory - Chemistry and C hemistry - challengeon 08-08-2022 Glucose Ql (U) Negative [facility] Laboratory - Urinalysison Protein Ql (U) Negative [facility] Absolute lymphocyte countOrd ered By: Dr. Voss on 07-17-2022 Lymphocytes Auto (Unsp spec) [#/Vol] 1.91 10*3/uL 0.83-4.51 [facility] Basophil percentageOrdered B y: Dr. Voss on 07-17-2022 Basophils/100 WBC (Bld) 0.5 % 0-1 [facility] Eosinophils/100 WBC (Bld) 3.1 % 0-5 [facility] Neutrophils (Bld) [#/Vol] 7.0 10*3/uL 2.0-7.7 [facility] Neutrophils/100 WBC (Bld) 71.3 % 47-70 [facility] WBC (Bld) [#/Vol] 9.9 10*3/uL 4.4-11.0 [facility] Blood erythrocytes count (nu mber/volume)Ordered By: Dr. Voss on 07-17-2022 RBC (Bld) [#/Vol] 4.35 10*6/uL 4.2-5.4 [facility] Blood hemoglobin measurement (mass/volume)Ordered By: Dr. Voss on 07-17-2022 Hemoglobin (Bld) [Mass/Vol] 14.3 g/dL 12.0-15.0 [facility] Blood lymphocytes/100 leukoc ytesOrdered By: Dr. Voss on 07-17-2022 Lymphocytes/100 WBC (Bld) 19.4 % 19-41 [facility] Blood monocytes/100 leukocyt esOrdered By: Dr. Voss on 07-17-2022 Monocytes/100 WBC (Bld) 5.0 % 0-10 [facility] Blood platelet mean volumeOr dered By: Dr. Voss on 07-17-2022 Platelet mean volume (Bld) [Entitic vol] 12.4 fL 6.2-12.0 [facility] Determination of erythrocyte mean corpuscular volume (MCV)Ordered By: Dr. Voss on 07-17-2022 MCV (RBC) [Entitic vol] 90.1 fL 81-99 [facility] HIV 1 and HIV-2 antibody ass ay with HIV-1 p24 antigen detectionOrdered By: Dr. Voss on 07-17-2022 HIV 1+2 Ab+HIV1 p24 Ag IA Ql Non-Reactive Nonreactive [facility] Hematocrit Auto (Bld) [Volum e fraction]Ordered By: Dr. Voss on 07-17-2022 Hematocrit (Bld) [Volume fraction] 39.2 % 37-47 [facility] Laboratory - Hematology and Cell countsOrdered By: Dr. Voss on 07-17-2022 Erythrocyte distribution width (RBC) [Entitic vol] 42.7 fL 35.1-43.9 [facility] Erythrocyte distribution width (RBC) [Ratio] 13.0 % 11.6-14.6 [facility] Immature granulocytes/100 WBC (Bld) 0.700 % 0.0-0.9 [facility] Comment on above: IG% - Immature Granu locytes (promyelocytes, myelocytes and metamyelocytes) > 1% indicates that a LEFT SHIFT is Present. MCH (RBC) [Entitic mass] 32.9 pg 27.0-32.0 [facility] Nucleated RBC/100 WBC (Bld) [Ratio] 0 % 0-5 [facility] MCHC Auto (RBC) [Mass/Vol]Or dered By: Dr. Voss on 07-17-2022 MCHC (RBC) [Mass/Vol] 36.5 g/dL 32-36 [facility] No Panel InformationOrdered By: Dr. Voss on 07-17-2022 Hepatitis B Surface Antigen Non-Reactive Nonreactive [facility] Hepatitis C Antibody Non-Reactive Nonreactive [facility] Comment on above: Non Reactive: < 0.8 Equivocal: >/= 0.8 to < 1.0 Reactive: >/= 1.0The CDC recommends that a reactive/equivocal HCV antibody result be followed up by the HCV Nucleic Acid Amplificationtest (944956) Miscellaneous Test Comment MAILED SPECIMEN [facility] Rubella IgG Antibody Reactive Nonreactive [facility] Comment on above: Antibody Results Int erpretation of Immune Status Non Reactive Presumed Non-Immune Equivocal Equivocal Reactive Presumed Immune Thyroid Stimulating Hormone (TSH) 0.66 uIU/mL 0.358-3.74 [facility] Platelets bldOrdered By: Dr. Voss on 07-17-2022 Platelets (Bld) [#/Vol] 220 10*3/uL 150-450 [facility] Serum Treponema species anti body detectionOrdered By: Dr. Voss on 07-17-2022 Treponema sp Ab Ql (S) Non-Reactive [facility] Culture, urineOrdered By: Dr Ernst Voss on 07-13-2022 Bacteria identified Cx Nom (U) Positive [facility] Chlamydia trachomatis rRNA d etection by probe and target amplification methodOrdered By: Dr. Voss on 07-11-2022 C. trachomatis rRNA KEELEY+probe Ql (Unsp spec) Negative Negative [facility] Laboratory - Microbiology an d Antimicrobial susceptibilityOrdered By: Dr. Voss on 07-11-2022 N. gonorrhoeae DNA KEELEY+probe Ql (Unsp spec) Negative Negative [facility] Comment on above: Performed at: =[address] [id number] Director: Mayra Kaba MD, Phone: [phone] Laboratory - Chemistry and C hemistry - challengeOrdered By: Dr. Valera on 04-25-2022 Free T4 [Mass/Vol] 1.14 ng/dL 0.76-1.46 [facility] No Panel InformationOrdered By: Dr. Valera on 04-25-2022 Thyroid Stimulating Hormone (TSH) 2.16 uIU/mL 0.358-3.74 [facility] Operative Reporton 2 Operative Report [facility] [address] [place], [place] [address] RECORD OF PROCEDURE PATIENT NAME: KATIE ROBB DATE OF : 1990 MED REC #: [id number] PT LOCATION: OR PACU PT TYPE: OPS [...] room in stable condition. Lori Williamson DO [id number] SSI File#: [id number] CC: Lori Williamson DO [facility] Surgical Pathology Depar tmenton 04-12-2022 [facility] Surgical Pathology Department Name KATIE ORBB Pathologist: WILLIAM WARREN MD Date of Procedure: 04/12/2022 Date Received: 04/13/2022 Date Reported 04/18/2022 Submitting Physician: LORI WILLIAMSON DO Location: [facility] Copy To/Referring/Attending: Pt States No PCP Other External # [id number] FINAL DIAGNOSIS A. SPECIMEN LABELED "POLYPOID TISSUE": -- FRAGMENTS OF INACTIVE ENDOMETRIUM WITH DECIDUALIZED STROMA, COMPATIBLE WITH PROGESTIN EFFECT. afn Electronically Signed Out By WILLIAM WARREN MD/AFN By the signature on this report, the individual or group listed as making the Final Interpretation/Diagnosis certifies that they have reviewed this case. Diagnostic interpretation performed at [address] [place] [address] Clinical History: polyps Specimens Submitted As: A: POLYPOID TISSUE Other Case Numbers [id number] Gross Description: Received in formalin in a gauze sock, labeled with the patient's name, hospital number and "polypoid tissue", are multiple irregular fragments of ólpez, rubbery tissue and blood clot aggregating to 1.3 x 1.0 x 0.3 cm. The specimen is submitted in toto in one cassette. LMP lmp/04/14/2022 [facility] Department of Pathology [address] [place] [address] Normal [facility] Comment on above: Performed By: #### U [facility] #### [facility] Surgical Pathology Department [address] [place] [address] Laboratory - Chemistry and C hemistry - challengeon 03-27-2022 Free T4 [Mass/Vol] 1.03 ng/dL 0.76-1.46 [facility] Work Phone: No Panel Informationon 03-27 Thyroglobulin Antibody < 1.0 IU/mL 0.0-0.9 [facility] Work Phone: Comment on above: Thyroglobulin Antibo dy measured by NewscronMethodologyPerformed at: CB - [facility] [address] [id number] Director: Robert Gonzalez PhD, Phone: [phone] Thyroid Stimulating Hormone (TSH) 2.88 uIU/mL 0.358-3.74 [facility] Work Phone: [phone] Serum or plasma thyroperoxid ase antibody assay (units/volume)on 03-27-2022 TPO Ab Qn [IU]/mL 0-34 [facility] Work Phone: Absolute lymphocyte counton 03-23-2022 Lymphocytes Auto (Unsp spec) [#/Vol] 1.93 10*3/uL 0.83-4.51 [facility] Work Phone: [phone] Absolute reticulocyte counto n 03-23-2022 Reticulocytes (Bld) [#/Vol] 0.00 10*3/uL 0-5 [facility] Work Phone: [phone] Basophil percentageon 2021 Basophil percentage 3.1 mg/dL 2.5-4.9 [facility] Work Phone: [phone] Bilirubin [Mass/Vol] 0.70 mg/dL 0.20-1.00 [facility] Work Phone: [phone] Comment on above: For patients on eltr ombopag therapy, use of Dimension Canalou TBIL is not recommended. Chloride [Moles/Vol] 108 mmol/L 98-107 [facility] Work Phone: [phone] Cholesterol [Mass/Vol] 140 mg/dL <200 [facility] Work Phone: [phone] Comment on above: <200 mg/dL Desirable 200-240 mg/dL Borderline >240 mg/dL High Risk Glucose [Mass/Vol] 91 mg/dL 74-106 [facility] Work Phone: [phone] Neutrophils (Bld) [#/Vol] 3.8 10*3/uL 2.0-7.7 [facility] Work Phone: [phone] Potassium [Moles/Vol] 4.3 mmol/L 3.5-5.1 [facility] Work Phone: Protein [Mass/Vol] 7.1 g/dL 6.4-8.2 [facility] Work Phone: Sodium [Moles/Vol] 138 mmol/L 136-145 [facility] Work Phone: Triglyceride [Mass/Vol] 84 mg/dL <199 [facility] Work Phone: Comment on above: The drugs N-Acetylcy steine and Metamizole may falsely depress this assay.Serum Triglycerides Reference Interval Normal <150 mg/dL Borderline high 150 - 199 mg/dL High 200 - 499 mg/dL Very High > or = 500 mg/dL WBC (Bld) [#/Vol] 6.8 10*3/uL 4.4-11.0 [facility] Work Phone: Bilirubin Test strip Ql (U)o n 03-23-2022 Bilirubin Ql (U) Negative Negative [facility] Work Phone: Blood erythrocytes count (nu mber/volume)on 03-23-2022 RBC (Bld) [#/Vol] 4.44 10*6/uL 4.2-5.4 [facility] Work Phone: Blood hemoglobin measurement (mass/volume)on 03-23-2022 Hemoglobin (Bld) [Mass/Vol] 14.4 g/dL 12.0-15.0 [facility] Work Phone: Blood platelet mean volumeon 03-23-2022 Platelet mean volume (Bld) [Entitic vol] 12.1 fL 6.2-12.0 [facility] Work Phone: Determination of erythrocyte mean corpuscular volume (MCV)on 03-23-2022 MCV (RBC) [Entitic vol] 89.6 fL 81-99 [facility] Work Phone: Direct bilirubinon Bilirubin.direct [Mass/Vol] 0.14 mg/dL 0.00-0.30 [facility] Work Phone: Hematocrit Auto (Bld) [Volum e fraction]on 03-23-2022 Hematocrit (Bld) [Volume fraction] 39.8 % 37-47 [facility] Work Phone: [phone] Ketones Test strip Ql (U)on 03-23-2022 Ketones Ql (U) Negative Negative [facility] Work Phone: [phone] Laboratory - Chemistry and C hemistry - challengeon 03-23-2022 Free T4 [Mass/Vol] 1.04 ng/dL 0.76-1.46 [facility] Work Phone: ALP [Catalytic activity/Vol] 59 U/L 45-117 [facility] Work Phone: ALT [Catalytic activity/Vol] 16 U/L 13-56 [facility] Work Phone: Cholesterol.total/Chol esterol in HDL [Mass ratio] 2.50 {ratio} [facility] Work Phone: [phone] CO2 [Moles/Vol] 23.0 mmol/L 21.0-32.0 [facility] Work Phone: Globulin (S) [Mass/Vol] 3.5 g/dL 2.2-4.2 [facility] Work Phone: [phone] Urea nitrogen/Creatinine [Mass ratio] 13.6 mg/mg 10-20 [facility] Work Phone: [phone] Laboratory - Hematology and Cell countson 03-23-2022 Erythrocyte distribution width (RBC) [Entitic vol] 41.6 fL 35.1-43.9 [facility] Work Phone: Erythrocyte distribution width (RBC) [Ratio] 12.8 % 11.6-14.6 [facility] Work Phone: MCH (RBC) [Entitic mass] 32.4 pg 27.0-32.0 [facility] Work Phone: Nucleated RBC/100 WBC (Bld) [Ratio] 0 % 0-5 [facility] Work Phone: MCHC Auto (RBC) [Mass/Vol]on 03-23-2022 MCHC (RBC) [Mass/Vol] 36.2 g/dL 32-36 [facility] Work Phone: Nitrite Test strip Ql (U)on 03-23-2022 Nitrite Ql (U) Negative Negative [facility] Work Phone: No Panel Informationon 03-23 Thyroid Stimulating Hormone (TSH) 2.58 uIU/mL 0.358-3.74 [facility] Work Phone: [phone] Estimated GFR (MDRD) Amer 88 mL/min >60 [facility] Work Phone: Comment on above: GFR Calc Estimated GFR (MDRD) Non-Af Amer 73 mL/min >60 [facility] Work Phone: Comment on above: Non- GFR Calc Platelets bldon 03-23-2022 Platelets (Bld) [#/Vol] 211 10*3/uL 150-450 [facility] Work Phone: [phone] Protein Test strip Ql (U)on 03-23-2022 Protein Ql (U) Negative Negative [facility] Work Phone: [phone] Segmented neutrophils/100 WB C Auto (Bld)on 03-23-2022 Segmented neutrophils/100 WBC (Bld) 56.2 % 47-70 [facility] Work Phone: [phone] Serum or plasma albumin viola urement (mass/volume)on 03-23-2022 Albumin [Mass/Vol] 3.6 g/dL 3.2-5.0 [facility] Work Phone: [phone] Serum or plasma albumin/glob ulin mass ratioon 03-23-2022 Albumin/Globulin [Mass ratio] 1.0 {ratio} 0.9-2.4 [facility] Work Phone: [phone] Serum or plasma calcium viola urement (mass/volume)on 03-23-2022 Calcium [Mass/Vol] 9.0 mg/dL 8.5-10.1 [facility] Work Phone: [phone] Serum or plasma cholesterol in HDL measurement (mass/volume)on 03-23-2022 Cholesterol in HDL [Mass/Vol] 57 mg/dL >40 [facility] Work Phone: Comment on above: The drugs N-Acetylcy steine and Metamizole may falsely depress this assay. Reference Range HDL <40 mg/dL Low HDL Cholesterol HDL >or= 60 mg/dL High HDL Cholesterol Serum or plasma cholesterol in VLDL measurement (mass/volume)on 03-23-2022 Cholesterol in VLDL [Mass/Vol] 17 mg/dL 5-40 [facility] Work Phone: Serum or plasma creatinine m easurement (mass/volume)on 03-23-2022 Creatinine [Mass/Vol] 0.96 mg/dL 0.55-1.02 [facility] Work Phone: Comment on above: The validity of the calculated GFR & GFRAA in patients over 70 years has not been determined. Clinical correlation is essential. Serum or plasma low density lipoprotein (LDL) cholesterol measurement (mass/volume)on 03-23-2022 Cholesterol in LDL [Mass/Vol] 66 mg/dL 0-130 [facility] Work Phone: Serum or plasma urea nitroge n measurement (mass/volume)on 03-23-2022 Urea nitrogen [Mass/Vol] 13 mg/dL 7-18 [facility] Work Phone: Serum or plasma uric acid me asurement (mass/volume)on 03-23-2022 Urate [Mass/Vol] 4.9 mg/dL 2.6-6.0 [facility] Work Phone: Comment on above: The drugs N-Acetylcy steine and Metamizole may falsely depress this assay. Thin prep Papanicolaou smear with manual screeningon 03-23-2022 Thin prep Papanicolaou smear with manual screening 14 U/L 15-37 [facility] Work Phone: Thin prep Papanicolaou smear with manual screening 7 5-15 [facility] Work Phone: Thin prep Papanicolaou smear with manual screening 216 U/L 84-246 [facility] Work Phone: Urine blood detectionon 03-11 RBC Ql (U) Negative Negative [facility] Work Phone: Urine clarityon 03-23-2022 Clarity (U) Clear Clear [facility] Work Phone: Urine color determinationon 03-23-2022 Color (U) Yellow Yellow [facility] Work Phone: Urine glucose detectionon Glucose Ql (U) Normal mg/dl Normal [facility] Work Phone: Urine leukocyte esterase det ection by dipstickon 03-23-2022 Leukocyte esterase Test strip Ql (U) 100 /ul Negative [facility] Work Phone: Urine pHon 03-23-2022 pH (U) 6.5 [pH] 5.0 - 8.0 [facility] Work Phone: Urine specific gravity measu rementon 03-23-2022 Specific gravity (U) [Rel density] 1.010 1.002-1.030 [facility] Work Phone: Urobilinogen Auto test strip Ql (U)on 03-23-2022 Urobilinogen Ql (U) Normal mg/dl Normal [facility] Work Phone: C diff Tox gens Stl Ql KEELEY+p robeon 10-28-2021 C. difficile toxin genes KEELEY+probe Ql (Stl) Negative Normal Negative for C. difficile toxin by PCR [facility] Comment on above: Order Comment: Speci men Type: STOOL SPECIMEN Ordering Facility: [facility] Address: [address] [place] [id number] Performed By: #### 5 [id number] #### [id number] [address] [place] [id number] [place] CNOVon 10-25-2021 CNOV Office Visit ([facility] ) -------- KATIE ROBB ([id number]) 1990 F T Date Time Provider Department 10/25/21 4:55 PM [...] other intestinal disorders. No recent outside of [facility] travel, new foods/restaurants, or camping/out door eating. It started while at a wedding in [place]. No camping or well-water use. 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 DIFFICILE [...] Discussed likely viral nature Encourage fluids, rest. Glenn foods- Bread, crackers, rice No spicy, caffeine, [...] questions. Follo (more content not included)... Normal [facility] Op Noteon 07-21-2021 Op Note Operative Note Department of Obstetrics and Gynecology Patient: Katie Robb : 1990 Date of Procedure: 07/21/21 Pre-operative Diagnosis: 31 y.o. female , Ovarian Follicles Post-operative Diagnosis: Same Procedure: Ultrasound Guided Transvaginal Follicular Aspiration, Oocyte Retrieval Surgeon: Dr. Valera Ski Tow Operator(s):Dr. Shin Anesthesia: MAC Findings: Multiple Ovarian Follicles [...] Christina Valera MD 07/21/2021, 9:37 AM Normal [facility] CNCOon 06-13-2021 CNCO Letter Text Normal [facility] CULTURE URINEon 06-03-2021 CULTURE URINE CULTURE URINE --> Status: F Normal urogenital hiren present. Normal [facility] Comment on above: Performed By: #### C /UR #### [facility] [employer] [address] [phone] [address] Abdomen/Pelvis w/ Contras ton 06-01-2021 CT Abdomen/Pelvis w/ Contrast Patient Name: KATIE ROBB Computed Tomography ACCESSION EXAM DATE/TIME PROCEDURE ORDERING PROVIDER [id number] 06/01/2021 16:[address] Abdomen/Pelvis w/ IV CHERIE SESAY Contrast (IV Onl CPT code 49727 Q9967 Reason For Exam (CT Abdomen/Pelvis w/ [...] on Workstation: DONNIE Final Dictating Physician: MD SAMAYOA JOHN R Signed Date and Time: 06/01/2021 5:58 pm Signed by: MD SAMAYOA JOHN R Transcribed Date and Time: 06/01/2021 6:00 Normal [facility] Comp Metabolic Panelon 06-01 Calcium [Mass/Vol] 9.4 mg/dL Normal 8.4-10.4 [facility] Comment on above: Performed By: #### C MP3, HEMDF #### [facility] [address] [place] [address] Glucose [Mass/Vol] 106 mg/dL High 70-100 [facility] Comment on above: Performed By: #### C MP3, HEMDF #### [facility] [address] [place] [address] ALP [Catalytic activity/Vol] 52 U/L Normal 38-126 [facility] Comment on above: Performed By: #### C MP3, HEMDF #### [facility] [address] [place] [address] ALT [Catalytic activity/Vol] 17 U/L Normal 0-34 [facility] Comment on above: Result Comment: The ALT test is performed by an updated assay method. Please note that the reference intervals have been changed and are now sex specific. Performed By: #### C MP3, HEMDF #### [facility] [address] [place] [address] Anion gap [Moles/Vol] 3 mmol/L Normal 3-13 [facility] Comment on above: Performed By: #### C MP3, HEMDF #### [facility] [address] [place] [address] AST [Catalytic activity/Vol] 42 U/L Normal 15-46 [facility] Comment on above: Performed By: #### C MP3, HEMDF #### [facility] [address] [place] [address] Bilirubin [Mass/Vol] 1.5 mg/dL High 0.2-1.3 [facility] Comment on above: Performed By: #### C MP3, HEMDF #### [facility] [address] [place] [address] CO2 [Moles/Vol] 24 mmol/L Normal 22-30 [facility] Comment on above: Performed By: #### C MP3, HEMDF #### [facility] [address] [place] [address] Creatinine [Mass/Vol] 0.71 mg/dL Normal 0.52-1.25 [facility] Comment on above: Performed By: #### C MP3, HEMDF #### [facility] [address] [place] [address] eGFR OTHER > 90.0 Normal >60 [facility] Comment on above: Result Comment: KDIG O [...] Performed By: #### C MP3, HEMDF #### [facility] [address] [place] [address] GFR/1.73 sq M.predicted among blacks MDRD (S/P/Bld) [Vol rate/Area] mL/min/{1.73_m2} Normal >60 [facility] Comment on above: Performed By: #### C MP3, HEMDF #### [facility] [address] [place] [address] Protein [Mass/Vol] 7.1 g/dL Normal 6.3-8.2 [facility] Comment on above: Performed By: #### C MP3, HEMDF #### [facility] [address] [place] [address] Urea nitrogen [Mass/Vol] 9 mg/dL Normal 9-20 [facility] Comment on above: Performed By: #### C MP3, HEMDF #### [facility] [address] [place] [address] Potassium [Moles/Vol] 4.6 mmol/L Normal 3.5-5.1 [facility] Comment on above: Performed By: #### C MP3, HEMDF #### [facility] [address] [place] [address] Albumin [Mass/Vol] 4.1 g/dL Normal 3.5-5.0 [facility] Comment on above: Performed By: #### C MP3, HEMDF #### [facility] [address] [place] [address] Sodium [Moles/Vol] 136 mmol/L Normal 135-145 [facility] Comment on above: Performed By: #### C MP3, HEMDF #### [facility] [address] [place] [address] Chloride [Moles/Vol] 109 mmol/L High 98-107 [facility] Comment on above: Performed By: #### C MP3, HEMDF #### [facility] [address] [place] [address] Complete Urinalysison 2020 Bacteria Moderate (6-50) Abnormal Negative [facility] Comment on above: Result Comment: . Performed By: #### C UA2, HCGUR #### [facility] [address] [place] [address] RBC, Urine 0 - 2 Normal 0-2 [facility] Comment on above: Result Comment: . Performed By: #### C UA2, HCGUR #### [facility] [address] [place] [address] Squamous Epithelial 0 - 2 Normal 3-5 [facility] Comment on above: Result Comment: . Performed By: #### C UA2, HCGUR #### [facility] [address] [place] [address] VOLUME, URINE 8-12 ml Normal [facility] Comment on above: Result Comment: . Performed By: #### C UA2, HCGUR #### [facility] [address] [place] [address] WBC, Urine 3 - 5 Normal 0-5 [facility] Comment on above: Result Comment: . Performed By: #### C UA2, HCGUR #### [facility] [address] [place] [address] Appearance (U) Clear Normal Clear [facility] Comment on above: Result Comment: . Performed By: #### C UA2, HCGUR #### [facility] [address] [place] [address] Bilirubin,Urine Negative Normal Negative [facility] Comment on above: Result Comment: . Performed By: #### C UA2, HCGUR #### [facility] [address] [place] [address] Color (U) LIGHT YELLOW Normal Lt. Yellow [facility] Comment on above: Result Comment: . Performed By: #### C UA2, HCGUR #### [facility] [address] [place] [address] Glucose Ql (U) Normal Normal Normal (<70) [facility] Comment on above: Result Comment: . Performed By: #### C UA2, HCGUR #### [facility] [address] [place] [address] Ketone,Urine Negative Normal Negative [facility] Comment on above: Result Comment: . Performed By: #### C UA2, HCGUR #### [facility] [address] [place] [address] Leukocytes,Urine 75 Joaquim/uL Abnormal Negative [facility] Comment on above: Result Comment: . Performed By: #### C UA2, HCGUR #### [facility] [address] [place] [address] Nitrites,Urine Negative Normal Negative [facility] Comment on above: Result Comment: . Performed By: #### C UA2, HCGUR #### [facility] [address] [place] [address] Occult Blood,Urine 0.5 mg/dL Abnormal Negative [facility] Comment on above: Result Comment: . Performed By: #### C UA2, HCGUR #### [facility] [address] [place] [address] pH,Urine 7.0 Normal 5.0-8.0 [facility] Comment on above: Result Comment: . Performed By: #### C UA2, HCGUR #### [facility] [address] [place] [address] Specific Milton,Urine 1.007 Normal 1.005 - 1.030 [facility] Comment on above: Result Comment: . Performed By: #### C UA2, HCGUR #### [facility] [address] [place] [address] Total Protein,Urine Negative Normal Negative [facility] Comment on above: Result Comment: . Performed By: #### C UA2, HCGUR #### [facility] [address] [facility] [place] [address] Urobilinogen,Urine Normal Normal Normal (0-1) [facility] Comment on above: Result Comment: . Performed By: #### C UA2, HCGUR #### [facility] [address] [place] [address] HCG,Urine Qualon 06-01-2021 Beta HCG ( test) Ql (U) Negative Normal Negative [facility] Comment on above: Result Comment: Plea se note: Very dilute urine specimens, as indicated by a low specific gravity, may not contain lifeline representatives levels of hCG. If is still suspected, a first morning urine specimen should be collected 48 hours later and tested. is the most common reason for HCG in urine, although choriocarcinoma, hydatidiform mole, and certain nontropho- blastic malignancies also result in detectable urinary HCG levels. Sensitivity = 20mIU/mL. Performed By: #### C UA2, HCGUR #### [facility] [address] [place] [address] Hemogram w/ Autodiffon 06-01 Abs Baso Cnt 0.1 10*3/uL Normal 0.0-0.2 [facility] Comment on above: Performed By: #### C MP3, HEMDF #### [facility] [address] [place] [address] Abs Neutrophile Cnt 6.3 10*3/uL Normal 1.8-7.0 [facility] Comment on above: Performed By: #### C MP3, HEMDF #### [facility] [address] [place] [address] Basophils/100 WBC (Bld) 0.6 % Normal 0.0-2.0 [facility] Comment on above: Performed By: #### C MP3, HEMDF #### [facility] [address] [place] [address] Eosinophils (Bld) [#/Vol] 0.2 10*3/uL Normal 0.0-0.5 [facility] Comment on above: Performed By: #### C MP3, HEMDF #### [facility] [address] [place] [address] Eosinophils/100 WBC (Bld) 2.1 % Normal 1.0-6.0 [facility] Comment on above: Performed By: #### C MP3, HEMDF #### [facility] [address] [place] [address] Erythrocyte distribution width (RBC) [Ratio] 13.8 % Normal 11.5-14.5 [facility] Comment on above: Performed By: #### C MP3, HEMDF #### [facility] [address] [place] [address] Granulocytes/100 WBC (Bld) 77.8 % Normal 40.0-80.0 [facility] Comment on above: Performed By: #### C MP3, HEMDF #### [facility] [address] [place] [address] Hematocrit (Bld) [Volume fraction] 30.9 % Low 35.0-47.0 [facility] Comment on above: Performed By: #### C MP3, HEMDF #### [facility] [address] [place] [address] Hemoglobin (Bld) [Mass/Vol] 10.8 g/dL Low 11.7-16.0 [facility] Comment on above: Performed By: #### C MP3, HEMDF #### [facility] [address] [place] [address] Lymphocytes (Bld) [#/Vol] 0.8 10*3/uL Low 1.0-4.3 [facility] Comment on above: Performed By: #### C MP3, HEMDF #### [facility] [address] [place] [address] Lymphocytes/100 WBC (Bld) 9.7 % Low 20.0-40.0 [facility] Comment on above: Performed By: #### C MP3, HEMDF #### [facility] [address] [place] [address] MCH (RBC) [Entitic mass] 31.8 pg Normal 26.0-34.0 [facility] Comment on above: Performed By: #### C MP3, HEMDF #### [facility] [address] [place] [address] MCHC 35.1 % Normal 32.0-36.0 [facility] Comment on above: Performed By: #### C MP3, HEMDF #### [facility] [address] [place] [address] MCV (RBC) [Entitic vol] 90.5 fL Normal 79.0-98.0 [facility] Comment on above: Performed By: #### C MP3, HEMDF #### [facility] [address] [address] Monocytes (Bld) [#/Vol] 0.8 10*3/uL Normal 0.0-0.8 [facility] Comment on above: Performed By: #### C MP3, HEMDF #### [facility] [address] [place] [address] Monocytes/100 WBC (Bld) 9.8 % Normal 2.0-10.0 [facility] Comment on above: Performed By: #### C MP3, HEMDF #### [facility] [address] [place] [address] Platelet mean volume (Bld) [Entitic vol] 9.5 fL Normal 7.4-10.4 [facility] Comment on above: Performed By: #### C MP3, HEMDF #### [facility] [address] [place] [address] Platelets (Bld) [#/Vol] 188 10*3/uL Normal 140-440 [facility] Comment on above: Performed By: #### C MP3, HEMDF #### [facility] [address] [place] [address] RBC (Bld) [#/Vol] 3.41 10*6/uL Low 3.80-5.20 [facility] Comment on above: Performed By: #### C MP3, HEMDF #### [facility] [address] [place] [address] WBC (Bld) [#/Vol] 8.1 10*3/uL Normal 3.6-10.7 [facility] Comment on above: Performed By: #### C MP3, HEMDF #### [facility] [address] [place] [address] SARS-CoV-2, Flu A/B and RSVo n 06-01-2021 SARS-CoV-2 (COVID-19) RNA KEELEY+probe Ql (Unsp spec) SARS-CoV-2 --> Status: F Not Detected. Flu A PCR --> Status: F Not Detected. Flu B PCR --> Status: F Not Detected. RSV PCR --> Status: F Not Detected. Expected Result: Not Detected _ Method: Real-time, RT-PCR This assay was developed by [employer] and distributed under an Emergency Use Authorization (EUA) granted by the FDA for the qualitative detection of nucleic acids from SARS-CoV-2, Influenza A, Influenza B, and Respiratory Syncytial Virus. Provider and patient fact sheets can be found at https://www.fda.gov/medi a/250528/download and https://www.fda.gov/medi a/961513/download. Expected Result: Not Detected _ Method: Real-time, RT-PCR This assay was developed by [employer] and distributed under an Emergency Use Authorization (EUA) granted by the FDA for the qualitative detection of nucleic acids from SARS-CoV-2, Influenza A, Influenza B, and Respiratory Syncytial Virus. Provider and patient fact sheets can be found at https://www.fda.gov/medi a/377324/download and https://www.fda.gov/medi a/796020/download. Normal [facility] Comment on above: Performed By: #### C VFLR #### [facility] [address] [place] [address] , [address] Hemoglobinon 05-27-2021 Hemoglobin (Bld) [Mass/Vol] 10.5 g/dL Low 11.7-16.0 [facility] Comment on above: Performed By: #### H EMGB #### [facility] [address] [place] [address] Op Noteon 05-27-2021 Op Note Operative Note [...] Laparoscopic Appendectomy, Flexible sigmoidoscopy Surgeon: Dr. Golden Ski Tow Operator(s): Dr. Thompson, Dr. Shin Anesthesia: General Findings: [...] our a (more content not included)... Normal [facility] Hemogramon 05-26-2021 Erythrocyte distribution width (RBC) [Ratio] 13.7 % Normal 11.5-14.5 [facility] Comment on above: Performed By: #### H EMOG #### [address] Hematocrit (Bld) [Volume fraction] 36.9 % Normal 35.0-47.0 [facility] Comment on above: Performed By: #### H EMOG #### [address] Hemoglobin (Bld) [Mass/Vol] 13.1 g/dL Normal 11.7-16.0 [facility] Comment on above: Performed By: #### H EMOG #### [address] MCH (RBC) [Entitic mass] 31.4 pg Normal 26.0-34.0 [facility] Comment on above: Performed By: #### H EMOG #### [address] MCHC 35.4 % Normal 32.0-36.0 [facility] Comment on above: Performed By: #### H EMOG #### [address] MCV (RBC) [Entitic vol] 88.9 fL Normal 79.0-98.0 [facility] Comment on above: Performed By: #### H EMOG #### [facility] [address] [place], [place] Platelet mean volume (Bld) [Entitic vol] 10.3 fL Normal 7.4-10.4 [facility] Comment on above: Performed By: #### H EMOG #### [place] [place], [place] Platelets (Bld) [#/Vol] 167 10*3/uL Normal 140-440 [facility] Comment on above: Performed By: #### H EMOG #### [address] [place], [place] RBC (Bld) [#/Vol] 4.15 10*6/uL Normal 3.80-5.20 [facility] Comment on above: Performed By: #### H EMOG #### [address] [address] [place], [place] WBC (Bld) [#/Vol] 16.0 10*3/uL High 3.6-10.7 [facility] Comment on above: Performed By: #### H EMOG #### [address] [address] [place], [place] Op Noteon 05-26-2021 Op Note OPERATIVE NOTE PATIENT NAME: Katie Robb : 1990 ATTENDING PHYSICIAN: Laurence Golden MD PROCEDURE DATE: 05/26/2021 PREOPERATIVE DIAGNOSIS: Endometriosis POSTOPERATIVE DIAGNOSIS: Same, perirectal endometriosis SURGEON: Kalina Mccullough MD DINKEY MECHANIC: Tomy Bolton MD OPERATION: 1) Laparoscopic Lysis [...] [facility] [place] Colorectal Surgery [address], [address] [place], [place] [address] p [phone] f [phone] [facility] Surgical Pathologyon 021 Surgical Pathology [id number] [facility] DEPARTMENT [facility] PATHOLOGY AND LABORATORY MEDICINE [address] [place] [id number] FINAL SURGICAL PATHOLOGY REPORT NAME: KATIE ROBB : 1990 31 Y F BILLING NO.: [id number] LOCATION: [facility] 5129 01 PROCEDURE 05/26/2021 DATE: SURGEON: LAURENCE GOLDEN MD RECEIVED 05/27/2021 DATE: ATTENDING: LAURENCE GOLDEN MD REPORT DATE: 06/06/2021 COPIES TO: DIAGNOSIS: A. "LEFT OVARIAN CYST WALL" - FRAGMENTS OF OVARIAN PARENCHYMA WITH ENDOMETRIOSIS B. "LEFT PELVIC SIDEWALL" - FRAGMENTS OF FIBROADIPOSE AND FIBROMUSCULAR TISSUE [...] SEROSAL ADHESIONS -INCIDENTAL BENIGN LYMPH NODES E. "RIGHT PELVIC SIDEWALL" - FIBROMUSCULAR AND FIBROADIPOSE TISSUE WITH SEROSAL ADHESIONS, HEMOSIDERIN DEPOSITION, AND REACTIVE CHANGES -FOCAL ENDOMETRIOSIS Comment: Immunohistochemical stains for CD10 highlight foci of endometrial type stroma. F. "RIGHT OVARIAN CYST WALL" - OVARIAN TISSUE WITH ENDOMETRIOSIS HCK/HCK Signature> SANA GARCIA M.D. CLINICAL INFORMATION: N80.9, K59.0, R10.2 SPECIMEN: (A) OVARIAN CYST (B) TISSUE NOS (C) TISSUE NOS (D) APPENDIX, APPENDICITIS (E) TISSUE NOS (F) OVARIAN CYST GROSS DESCRIPTION: A. Received in formalin labeled "left ovarian cyst wall" are multiple fibromembranous fragments of dark pink-lópez soft tissue measuring together 5.0 x 4.0 x 2.0 cm. There is no grossly appreciated normal ovarian architecture. Multiple lifeline representatives sections are submitted in cassettes A1-A3. B. Received in formalin labeled "left pelvic sidewall" is a cautery-roughened fragment of hemorrhagic, yellow-lópez, fibrofatty soft tissue measuring 1.5 x 1.0 x 0.6 cm. The specimen is multiply sectioned and entirely submitted in cassette B1. C. Received in formalin labeled "anterior perirectal nodule" are multiple focally hemorrhagic fragments of yellow-lópez fibrofatty soft tissue measuring together 3.0 x 2.5 x 0.7 cm. The fragments are multiply sectioned and entirely submitted in cassettes C1 and C2. D. Received in formalin labeled "appendix" is a grossly negative vermiform appendix measuring 3.7 x 0.6 cm. The glistening yellow-lópez periappendiceal fat is 3.5 x 1.5 x 1 cm. The appendiceal serosa is generally smooth and pink-lópez with scant surface adhesions distally. The lumen is patent. There is no nodule or fecalith. Four lifeline representatives sections are submitted in cassette D1 including a cross-section through the blue-inked appendiceal surgical margin, a central cross-section and the entire longitudinally sectioned tip. E. Received in formalin labeled "right pelvic sidewall" are multiple fragments of hemorrhagic, red-lópez soft tissue measuring together 2.0 x 2.0 x 0.5 cm and entirely submitted in cassette E1. F. Received in formalin labeled "right ovarian cyst wall" is a fibromembranous portion of hemorrhagic red-lópez soft tissue measuring 3.5 x 3.5 x 1 cm. The specimen is multiply sectioned to reveal a central 3 cm collapsed cystic cavity. The cyst wall averages 0.2 cm. The lining is shaggy and hemorrhagic. There is no grossly appreciated normal ovarian architecture. Multiple lifeline representatives sections are submitted in cassettes F1-F3. GW0/KMS1 Disclaimer: The following statement applies to all immunohistochemistry, in situ hybridization, molecular studies, and immunofluorescence testing. The use of one or more reagents in the above tests is regulated as an analyte specific reagent (ASR). These tests were developed and their performance characteristics determined by the clinical laboratories of [facility]. They have not been cleared by the [...] on decalcifie (more content not included)... Normal [facility] Hemogramon 05-19-2021 Erythrocyte distribution width (RBC) [Ratio] 14.0 % Normal 11.5-14.5 [facility] Comment on above: Performed By: #### H EMOG #### [facility] [address] [place], [place] Hematocrit (Bld) [Volume fraction] 39.7 % Normal 35.0-47.0 [facility] Comment on above: Performed By: #### H EMOG #### [facility] [address] [place], [place] Hemoglobin (Bld) [Mass/Vol] 14.2 g/dL Normal 11.7-16.0 [facility] Comment on above: Performed By: #### H EMOG #### [facility] [address] [place], [place] MCH (RBC) [Entitic mass] 32.0 pg Normal 26.0-34.0 [facility] Comment on above: Performed By: #### H EMOG #### [facility] [address] [place], [place] MCHC 35.7 % Normal 32.0-36.0 [facility] Comment on above: Performed By: #### H EMOG #### [facility] [address] [place], [place] MCV (RBC) [Entitic vol] 89.6 fL Normal 79.0-98.0 [facility] Comment on above: Performed By: #### H EMOG #### [facility] [address] [place], [place] Platelet mean volume (Bld) [Entitic vol] 11.3 fL High 7.4-10.4 [facility] Comment on above: Performed By: #### H EMOG #### [facility] [address] [place], [place] Platelets (Bld) [#/Vol] 172 10*3/uL Normal 140-440 [facility] Comment on above: Performed By: #### H EMOG #### [facility] [address] [place], [place] RBC (Bld) [#/Vol] 4.43 10*6/uL Normal 3.80-5.20 [facility] Comment on above: Performed By: #### H EMOG #### [facility] [address] [place], [place] WBC (Bld) [#/Vol] 8.7 10*3/uL Normal 3.6-10.7 [facility] Comment on above: Performed By: #### H EMOG #### [facility] [address] [place], [place] TS GELon 05-19-2021 TS GEL ABO Group: O Rh, Gel: POS Antibody Screen Gel: NEG Normal [facility] Comment on above: Performed By: #### T SGL #### [facility] CNPNon 03-09-2021 CNPN Telephone ([facility]) -------- KATIE ROBB ([id number]) 1990 F Date Time Provider Department 03/09/21 NICK GORDON During your visit today, we recorded the following information about you: Nick Gordon APRN.POULTRY FEED SUPERVISOR 03/09/2021 1:58 PM Signed Called patient to review her abdominal imaging showing bilateral ovarian cysts at her ED visit 12/16/20. She states she has been following up on this locally in [place] and does not need follow up from [facility]. Our office contact given in the event she Would like to follow up with us. All questions answered. Nick Gordon APRN.POULTRY FEED SUPERVISOR Allergies As of Date: 03/09/2021 Noted Allergy Reaction SEASONAL ALLERGIES 03/06/2016 3 - Cough Comments: Typical hayfever symptoms Date Reviewed: 12/16/2020 Reviewed by: Erica Roa RN - Fully Assessed Reason for Visit: Results [95] Cmt: Actionable finding- Fish Agent Prescriptions as of 03/09/2021 - acetaminophen (TYLENOL) [...] Status:Closed by NICK GORDON on 03/09/21 Normal [facility] US 3D Render w/o Post Pr ocesson 03-01-2021 [facility] US 3D Render w/o Post Process Patient Name: KATIE ROBB Maternal Medicine ACCESSION EXAM DATE/TIME PROCEDURE ORDERING PROVIDER [id number] 03/01/2021 09:30 EDT M US Transvaginal MD CHANTEL, LAURENCE Moreira Reason For Exam (MFM US Transvaginal) endmetrioma Report Gynecological Report (Signed Final 03/02/2021 10:30 am) Patient Info ID #: [id number] : [birth year] (31 yrs) Name: KATIE ROBB Visit Date: 03/01/2021 08:44 am Performed By Attending: Laurence Golden Location: [facility] Performed By: Shoaib Ledesma Visit Type: Outpatient Referred By: LAURENCE GOLDEN MD Service(s) Provided 3D Reconstruction 25559 Fish Agent Transvaginal [id number] Indications Endometrioma Technique/Scan Quality Technique: Transvaginal Approach History ------- Age: 31 Vital Signs Weight (lb): 165 Height: 5'7" BMI: 25.84 Hx Comments No known Latex [...] cyst with low level internal echoes and "ground glass" appearance is noted. This may represent an endometrioma. Left Ovary Status: Visualized Size (cm) L: 7.42 W: 5.92 H: 4.98 Vol.(ml): 114.54 Size (cm) L: 6.7 W: 4.6 H: 5.5 Vol.(ml): 88.76 Comment: A 6.7x4.6 x5.5 cm cyst with low level internal echoes and "ground glass" appearance is noted. This may represent an [...] Ultrasound ACCESSION EXAM DATE/TIME PROCEDURE ORDERING PROVIDER [id number] 03/01/2021 09:30 EDT [facility] US Transvaginal MD CHANTEL, LAURENCE Moreira Reason For Exam (M US Transvaginal) endmetrioma Report Gynecological Report (Signed Final 03/02/2021 10:30 am) Patient Info ID #: [id number] : [birth year] (31 yrs) Name: KATIE ROBB Visit Date: 03/01/2021 08:44 am Performed By Attending: Laurence Golden Location: [facility] Performed By: Shoaib Ledesma Visit Type: Outpatient Referred By: LAURENCE GODLEN MD Service(s) Provided 3D Reconstruction [id number] Fish Agent Transvaginal 20156 Indications Endometrioma Technique/Scan Quality Technique: Transvaginal Approach History ------- Age: 31 Vital Signs Weight (lb): 165 Height: 5'7" BMI: 25.84 Hx Comments No known Latex [...] cyst with low level internal echoes and "ground glass" appearance is noted. This may represent an endometrioma. Left Ovary Status: Visualized Size (cm) L: 7.42 W: 5.92 H: 4.98 Vol.(ml): 114.54 Size (cm) L: 6.7 W: 4.6 H: 5.5 Vol.(ml): 88.76 Comment: A 6.7x4.6 x5.5 cm cyst with low level internal echoes and "ground glass" appearance is noted. This may represent an [...] Report 03/02/2021 10:30 am Preliminary Report Normal [facility] US Transvaginalon 2020 [facility] US Transvaginal Patient Name: KATIE ROBB Maternal Medicine ACCESSION EXAM DATE/TIME PROCEDURE ORDERING PROVIDER [id number] 03/01/2021 09:30 EDT [facility] US Transvaginal MD CHANTEL, LAURENCE Moreira Reason For Exam (M US Transvaginal) edometrioma Report Gynecological Report (Signed Final 03/02/2021 10:30 am) Patient Info ID #: [id number] : [birth year] (31 yrs) Name: KATIE ROBB Visit Date: 03/01/2021 08:44 am Performed By Attending: Laurence Golden Location: [facility] Performed By: Shoaib Ledesma Visit Type: Outpatient Referred By: LAURENCE GOLDEN MD Service(s) Provided 3D Reconstruction 36048 Fish Agent Transvaginal [id number] Indications Endometrioma Technique/Scan Quality Technique: Transvaginal Approach History ------- Age: 31 Vital Signs Weight (lb): 165 Height: 5'7" BMI: 25.84 Hx Comments No known Latex [...] cyst with low level internal echoes and "ground glass" appearance is noted. This may represent an endometrioma. Left Ovary Status: Visualized Size (cm) L: 7.42 W: 5.92 H: 4.98 Vol.(ml): 114.54 Size (cm) L: 6.7 W: 4.6 H: 5.5 Vol.(ml): 88.76 Comment: A 6.7x4.6 x5.5 cm cyst with low level internal echoes and "ground glass" appearance is noted. This may represent an [...] Ultrasound ACCESSION EXAM DATE/TIME PROCEDURE ORDERING PROVIDER [id number] 03/01/2021 09:30 EDT [facility] US Transvaginal MD CHANTEL, LAURENCE Moreira Reason For Exam (M US Transvaginal) edometrioma Report Gynecological Report (Signed Final 03/02/2021 10:30 am) Patient Info ID #: [id number] : [birth year] (31 yrs) Name: KATIE ROBB Visit Date: 03/01/2021 08:44 am Performed By Attending: Laurence Golden Location: [facility] Performed By: Shoaib Ledesma Visit Type: Outpatient Referred By: LAURENCE GOLDEN MD Service(s) Provided 3D Reconstruction [id number] Fish Agent Transvaginal 78879 Indications Endometrioma Technique/Scan Quality Technique: Transvaginal Approach History ------- Age: 31 Vital Signs Weight (lb): 165 Height: 5'7" BMI: 25.84 Hx Comments No known Latex [...] cyst with low level internal echoes and "ground glass" appearance is noted. This may represent an endometrioma. Left Ovary Status: Visualized Size (cm) L: 7.42 W: 5.92 H: 4.98 Vol.(ml): 114.54 Size (cm) L: 6.7 W: 4.6 H: 5.5 Vol.(ml): 88.76 Comment: A 6.7x4.6 x5.5 cm cyst with low level internal echoes and "ground glass" appearance is noted. This may represent an [...] Report 03/02/2021 10:30 am Preliminary Report Normal [facility] CBC panel Auto (Bld)on 12-17 Erythrocyte distribution width (RBC) [Ratio] 12.8 % Normal 11.5-15.0 [facility] Comment on above: Order Comment: Speci men Type: BLOOD SPECIMEN Performed By: #### 5 8410-2 #### [facility] CLIA [id number] [address] [place] [address] Hematocrit (Bld) [Volume fraction] 34.9 % Low 36.0-46.0 [facility] Comment on above: Order Comment: Speci men Type: BLOOD SPECIMEN Performed By: #### 5 8410-2 #### [facility] CLIA [id number] [address] [place] [address] Hemoglobin (Bld) [Mass/Vol] 12.6 g/dL Normal 11.5-15.5 [facility] Comment on above: Order Comment: Speci men Type: BLOOD SPECIMEN Performed By: #### 5 8410-2 #### [facility] CLIA [id number] [address] [place] [address] MCH (RBC) [Entitic mass] 32.0 pg Normal 26.0-34.0 [facility] Comment on above: Order Comment: Speci men Type: BLOOD SPECIMEN Performed By: #### 5 8410-2 #### [facility] CLIA [id number] [address] [place] [address] MCHC (RBC) [Mass/Vol] 36.1 g/dL High 30.5-36.0 [facility] Comment on above: Order Comment: Speci men Type: BLOOD SPECIMEN Performed By: #### 5 8410-2 #### [facility] CLIA [id number] [address] [place] [address] MCV (RBC) [Entitic vol] 88.6 fL Normal 80.0-100.0 [facility] Comment on above: Order Comment: Speci men Type: BLOOD SPECIMEN Performed By: #### 5 8410-2 #### [facility] CLIA [id number] [address] [place] [address] Nucleated RBC (Bld) [#/Vol] 10*3/uL Normal <0.01 [facility] Comment on above: Order Comment: Speci men Type: BLOOD SPECIMEN Performed By: #### 5 8410-2 #### [facility] CLIA [id number] [address] [place] [address] Platelet mean volume (Bld) [Entitic vol] 11.6 fL Normal 9.0-12.7 [facility] Comment on above: Order Comment: Speci men Type: BLOOD SPECIMEN Performed By: #### 5 8410-2 #### [facility] CLIA [id number] [address] [place] [address] Platelets (Bld) [#/Vol] 188 10*3/uL Normal 150-400 [facility] Comment on above: Order Comment: Speci men Type: BLOOD SPECIMEN Performed By: #### 5 8410-2 #### [facility] CLIA [id number] [address] [place] [address] RBC (Bld) [#/Vol] 3.94 10*6/uL Normal 3.90-5.20 [facility] Comment on above: Order Comment: Speci men Type: BLOOD SPECIMEN Performed By: #### 5 8410-2 #### [facility] CLIA [id number] 1 [place] [address] WBC (Bld) [#/Vol] 11.77 10*3/uL High 3.70-11.00 [facility] Comment on above: Order Comment: Speci men Type: BLOOD SPECIMEN Performed By: #### 5 8410-2 #### [facility] CLIA [id number] [address] [place] [address] GC/CHLAMYDIA DNA DETon 12-17 C. trachomatis DNA KEELEY+probe Ql (Unsp spec) Negative Normal Negative for Chlamydia trachomatis by amplificaton [facility] Comment on above: Order Comment: Speci men Type: SPECIMEN FROM GENITAL SYSTEM Performed By: #### G CCT #### [facility] CLIA [id number] [address] [place] [address] N. gonorrhoeae DNA KEELEY+probe Ql (Unsp spec) Negative Normal Negative for Neisseria gonorrhoeae by amplification [facility] Comment on above: Order Comment: Speci men Type: SPECIMEN FROM GENITAL SYSTEM Performed By: #### G CCT #### [facility] CLIA [id number] [address] [place] [id number] HISTORY PHYSICALon HISTORY PHYSICAL HNO ID: [id number] Author: Niya Henriquez DO Service: Gynecology Author Type: Resident Type: HANDP Filed: 12/17/2020 5:06 AM Note Text: -------- Attestation signed by Sonia Girard DO at 12/17/2020 8:07 AM agree -------- GYNECOLOGY HANDP SERVICE DATE: 12/16/2020 SERVICE TIME: 11:40 PM Subjective HISTORY OF THE PRESENT ILLNESS This 30 year old presents as a direct admission from [place] [facility] for abdominal pain. Patient reports that she was being worked up for infertility and subsequently found out that she likely has endometriosis with endometriomas. On Sunday she had a hysterosalpingogram and on Sunday she had a saline infusion sonogram. Sunday night she started to have significant lower abdominal pain. She presented to [place] [facility] where CT abdomen/pelvis and pelvic US were [...] resp. rate 18, height 170.2 cm (5' 7"), weight 72.6 kg (160 lb), last menstrual [...] of suspected endometriosis with endometriomas -Imaging at [place] [facility] demonstrated b/l complex cystic masses and fluid in pelvis -WBC of 15.25 -Afebrile, nontachycardic on arrival -UA +trace leuks -s/p 1 dose Mefoxin and Doxycycline at (more content not included)... Normal [facility] NURSING PROGon 12-17-2020 NURSING PROG HNO ID: [id number] Author: Roma Wiggins RN Service: Nursing Author Type: Registered Nurse Type: Nursing Progress Note Filed: 12/17/2020 4:13 AM Note Text: Nursing Progress Note Patient Name: Katie Robb Patient Location: [place] [address] [address] 08-09 0405: PROJECT ENG notified of BP 88/58. Pt feels as though she is just dehydrated, otherwise asymptomatic. HR 77. RN to continue to encourage PO intake. This note was completed by: Roma Wiggins Normal [facility] RAPID BACT VAGINOSIS (AK)on 12-17-2020 Bacterial sialidase Ql (Unsp spec) Negative Normal Negative for the presence of bacterial vaginosis. [facility] Comment on above: Order Comment: Speci men Type: MICROBIAL ISOLATE Performed By: #### R APBVAG #### [facility] CLIA [id number] [address] [place] [address] T vaginalis Ag Genital Ql IA on 12-17-2020 T. vaginalis Ag IA Ql (Genital specimen) TRICHOMONAS PREP RESULT: Negative for Trichomonas vaginalis antigen Normal [facility] Comment on above: Performed By: #### R APBVAG #### [facility] CLIA [id number] 1 [place] [id number] ALLIED HEALTHon 12-16-2020 ALLIED HEALTH HNO ID: [id number] Author: Jony Damon Service: Radiology Author Type: Pilot Teacher Type: Allied Health Filed: 12/16/2020 5:33 PM [...] December 16, 2020 TIME: 5:29 PM Normal [facility] CBC panel Auto (Bld)on 12-16 Erythrocyte distribution width (RBC) [Ratio] 13.0 % Normal 11.5-15.0 [facility] Comment on above: Order Comment: Speci men Type: BLOOD SPECIMEN Performed By: #### 5 8410-2 #### [facility] CLIA [id number] [address] [place] [place] [address] Hematocrit (Bld) [Volume fraction] 39.2 % Normal 36.0-46.0 [facility] Comment on above: Order Comment: Speci men Type: BLOOD SPECIMEN Performed By: #### 5 8410-2 #### [facility] CLIA [id number] [address] [place] [address] Hemoglobin (Bld) [Mass/Vol] 14.0 g/dL Normal 11.5-15.5 [facility] Comment on above: Order Comment: Speci men Type: BLOOD SPECIMEN Performed By: #### 5 8410-2 #### [facility] CLIA [id number] [address] [place] [address] MCH (RBC) [Entitic mass] 31.3 pg Normal 26.0-34.0 [facility] Comment on above: Order Comment: Speci men Type: BLOOD SPECIMEN Performed By: #### 5 8410-2 #### [facility] CLIA [id number] [address] [place] [address] STATES [facility] MCHC (RBC) [Mass/Vol] 35.7 g/dL Normal 30.5-36.0 [facility] Comment on above: Order Comment: Speci men Type: BLOOD SPECIMEN Performed By: #### 5 8410-2 #### [facility] CLIA [id number] [address] [place] [address] MCV (RBC) [Entitic vol] 87.5 fL Normal 80.0-100.0 [facility] Comment on above: Order Comment: Speci men Type: BLOOD SPECIMEN Performed By: #### 5 8410-2 #### [facility] CLIA [id number] [address] [place] [address] Platelet mean volume (Bld) [Entitic vol] 11.7 fL Normal 9.0-12.7 [facility] Comment on above: Order Comment: Speci men Type: BLOOD SPECIMEN Performed By: #### 5 8410-2 #### [facility] CLIA [id number] [address] [place] [address] STATES OF [facility] Platelets (Bld) [#/Vol] 187 10*3/uL Normal 150-400 [facility] Comment on above: Order Comment: Speci men Type: BLOOD SPECIMEN Performed By: #### 5 8410-2 #### [facility] CLIA [id number] [address] [place] [address] RBC (Bld) [#/Vol] 4.48 10*6/uL Normal 3.90-5.20 [facility] Comment on above: Order Comment: Speci men Type: BLOOD SPECIMEN Performed By: #### 5 8410-2 #### [facility] CLIA [id number] [address] [place] [address] WBC (Bld) [#/Vol] 15.25 10*3/uL High 3.70-11.00 [facility] Comment on above: Order Comment: Speci men Type: BLOOD SPECIMEN Performed By: #### 5 8410-2 #### [facility] CLIA [id number] [address] [place] [address] OF [facility] CT ABD/PEL W IVCONon 021 CT ABD/PEL W IVCON * * *Final Report* * * DATE OF EXAM: Dec 16 2020 5:38PM [facility] 0530 - CT ABD/PEL W IVCON / [...] Tissues: No significant finding. Lower thorax: Unremarkable. Educator Senior Clinical (topogram) images: No additional findings. IMPRESSION: 1. [...] ileus. 3. Normal retrocecal appendix. 4. Splenomegaly. Spiritual Advisor: VIKY Transcribe Date/Time: Dec 16 2020 5:41P Dictated by : DASHAWN TRUJILLO MD This examination was interpreted and the report reviewed and electronically signed by: DASHAWN TRUJILLO MD on Dec 16 2020 6:01PM EST [id number] Normal [facility] Comprehensive metabolic 2000 panelon 12-16-2020 Albumin [Mass/Vol] 4.0 g/dL Normal 3.4-5.0 [facility] Comment on above: Order Comment: Speci men Type: BLOOD SPECIMEN Performed By: #### 3 040-3, #### [facility] CLIA [id number] [address] ALP [Catalytic activity/Vol] 66 U/L Normal 46-116 [facility] Comment on above: Order Comment: Speci men Type: BLOOD SPECIMEN Performed By: #### 3 040-3, #### [facility] CLIA [id number] [address] [place] ALT With P-5'-P [Catalytic activity/Vol] 14 U/L Normal 12-78 [facility] Comment on above: Order Comment: Speci men Type: BLOOD SPECIMEN Performed By: #### 3 040-3, #### [facility] CLIA [id number] [address] [place] Anion gap [Moles/Vol] 6 mmol/L Low 8-16 [facility] Comment on above: Order Comment: Speci men Type: BLOOD SPECIMEN Performed By: #### 3 040-3, #### [facility] CLIA [id number] [address] [place] AST With P-5'-P [Catalytic activity/Vol] 12 U/L Low 15-46 [facility] Comment on above: Order Comment: Speci men Type: BLOOD SPECIMEN Performed By: #### 3 040-3, 51226-1 #### [facility] CLIA [id number] [address] [place] [address] STATES [facility] Bilirubin [Mass/Vol] 1.7 mg/dL High 0.2-1.0 [facility] Comment on above: Order Comment: Speci men Type: BLOOD SPECIMEN Performed By: #### 3 040-3, 67230-0 #### [facility] CLIA [id number] [address] [place] [address] STATES OF [facility] Calcium [Mass/Vol] 8.9 mg/dL Normal 8.5-10.1 [facility] Comment on above: Order Comment: Speci men Type: BLOOD SPECIMEN Performed By: #### 3 040-3, #### [facility] CLIA [id number] [address] [place] [address] STATES [facility] Chloride [Moles/Vol] 104 mmol/L Normal 98-107 [facility] Comment on above: Order Comment: Speci men Type: BLOOD SPECIMEN Performed By: #### 3 040-3, #### [facility] CLIA [id number] [address] [place] [address] [place] CO2 [Moles/Vol] 27 mmol/L Normal 21-32 [facility] Comment on above: Order Comment: Speci men Type: BLOOD SPECIMEN Performed By: #### 3 040-3, #### [facility] CLIA [id number] [address] [place] [address] [place] Creatinine [Mass/Vol] 0.82 mg/dL Normal 0.51-0.95 [facility] Comment on above: Order Comment: Speci men Type: BLOOD SPECIMEN Performed By: #### 3 040-3, 19895-7 #### [facility] CLIA [id number] [address] [place] [address] [place] GFR/1.73 sq M.predicted among blacks MDRD (S/P/Bld) [Vol rate/Area] mL/min/{1.73_m2} Normal [facility] Comment on above: Order Comment: Speci men Type: BLOOD SPECIMEN Performed By: #### 3 040-3, 60776-5 #### [facility] CLIA [id number] [address] [place] [address] [place] GFR/1.73 sq M.predicted among non-blacks MDRD (S/P/Bld) [Vol rate/Area] mL/min/{1.73_m2} Normal [facility] Comment on above: Order Comment: Speci men [...] actual GFR. Performed By: #### 3 040-3, 20173-1 #### [facility] CLIA [id number] [address] [place] [address] [place] Glucose [Mass/Vol] 112 mg/dL High 70-99 [facility] Comment on above: Order Comment: Speci men Type: BLOOD SPECIMEN Result Comment: The [place] Diabetes Association (ADA) provides guidance for cutoff [...] Standards of Medical Care in Diabetes 2016, [place] [employer]. Diabetes Care. 2016.39(Suppl 1). Performed By: #### 3 040-3, 95869-4 #### [facility] CLIA [id number] [address] STATES [facility] Potassium [Moles/Vol] 4.0 mmol/L Normal 3.5-5.1 [facility] Comment on above: Order Comment: Speci men Type: BLOOD SPECIMEN Performed By: #### 3 040-3, #### [facility] CLIA [id number] [address] [place] [address] [place] Protein [Mass/Vol] 6.9 g/dL Normal 6.4-8.2 [facility] Comment on above: Order Comment: Speci men Type: BLOOD SPECIMEN Performed By: #### 3 040-3, #### [facility] CLIA [id number] [address] [place] [address] STATES OF [facility] Sodium [Moles/Vol] 137 mmol/L Normal 136-145 [facility] Comment on above: Order Comment: Speci men Type: BLOOD SPECIMEN Performed By: #### 3 040-3, #### [facility] CLIA [id number] [address] [place] [address] [place] Urea nitrogen [Mass/Vol] 13 mg/dL Normal 7-18 [facility] Comment on above: Order Comment: Speci men Type: BLOOD SPECIMEN Performed By: #### 3 040-3, #### [facility] CLIA [id number] [address] [place] [address] ED NOTEon 12-16-2020 ED NOTE HNO ID: [id number] Author: Yanet Navarro RN Service: Emergency Medicine [...] No cercern of STD by PT. 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 At this time, she recommended admission for observation, pain control. Recommendation discussed with patient. She is agreeable with plan for admission. To be transferred in stable condition. Concha Villarreal MD This note was created using [employer] dictation software. Every attempt was made to proofread, however you may find errors regardless of how insignificant they may be. They are purely unintentional and if there are any concerns regarding this dictation, please do not hesitate to call the dictating provider for clarification. Concha Villarreal MD 12/21/20 0210 [facility] ED PROV NOTE HNO ID: [id number] Author: Wm Ricks MD Service: Emergency Medicine [...] endometriosis, she was sent here by her CAR SALESPERSON for concern for appendicitis. She reports last [...] presents now after following up with her CAR SALESPERSON. Had some concern for appendicitis. He reports [...] - Sexual activity: Yes Partners: Male Comment: Hang ALLERGIES Allergen Reactions - Seasonal Allergies Cough [...] General: Phuc (more content not included)... Normal [facility] HCG Preg Ur Qlon 12-16-2020 HCG ( test) Ql (U) Negative Normal Negative [facility] Comment on above: Order Comment: Speci men Type: URINE SPECIMEN Result Comment: This test is intended to aid in the early detection of . Very dilute urine samples, as indicated by a low specific gravity, may not contain lifeline representatives levels of hCG. This test detects intact [...] . Performed By: #### 2 106-3 #### [facility] CLIA [id number] [address] [place] [address] [place] Lipase SerPl-cCncon 12-17-19 21 Lipase [Catalytic activity/Vol] 34 U/L Low 73-393 [facility] Comment on above: Order Comment: Speci men Type: BLOOD SPECIMEN Performed By: #### 3 040-3, 12864-6 #### [facility] CLIA [id number] [address] [place] [address] [place] SARS-CoV-2 RNA Resp Ql KEELEY+p robeon 12-16-2020 SARS-CoV-2 (COVID-19) RNA KEELEY+probe Ql (Resp) COVID 19 RESULT: SARS-CoV-2 (Agent of COVID-19) Not Detected by PCR. This test has been authorized by FDA under an Emergency Use Authorization (EUA) Normal [facility] Comment on above: Performed By: #### R APBVAG #### [facility] CLIA [id number] [address] [place] [id number] US FEMALE PELVIS TRANSABD LT Don 12-16-2020 US FEMALE PELVIS TRANSABD LTD * * [...] Recommendation: US FEMALE PELVIS NON-OB NON TORSION ([id number]) Time Frame: 6-12 weeks COMMUNICATION: Results will be communicated with the ordering provider via [employer] staff message or phone message by Imaging Support Services within 2 business days of report finalization. Algorithms for management of incidental imaging findings can be found on the [employer] site at: [email or web address] [email or web address] naging%20Incidental%20Fi ndi ngs%20at%20Imaging/Forms /[email or web address] Spiritual Advisor: VIKY Transcribe Date/Time: Dec 16 2020 7:36P Dictated by : KATEY FONTAINE MD This examination was interpreted and the report reviewed and electronically signed by: KATEY FONTAINE MD on Dec 16 2020 7:48PM EST [id number] ACTIONABLE Invalid Interpretation Code [facility] US FEMALE PELVIS TRANSVAGon 12-16-2020 US FEMALE [...] Recommendation: US FEMALE PELVIS NON-OB NON TORSION ([id number]) Time Frame: 6-12 weeks COMMUNICATION: Results will be communicated with the ordering provider via [employer] staff message or phone message by Imaging Support Services within 2 business days of report finalization. Algorithms for management of incidental imaging findings can be found on the [place] [employer] site at: [email or web address] naging%20Incidental%20Fi ndi ngs%20at%20Imaging/Forms /[email or web address].aspx Spiritual Advisor: VIKY Transcribe Date/Time: Dec 16 2020 7:36P Dictated by : KATEY FONTAINE MD This examination was interpreted and the report reviewed and electronically signed by: KATEY FONTAINE MD on Dec 16 2020 7:48PM EST [id number] ACTIONABLE Invalid Interpretation Code [facility] Urinalysis complete panel (U )on 12-16-2020 Bacteria LM.HPF (Urine sed) [#/Area] Few Abnormal None Seen [facility] Comment on above: Order Comment: Speci men Type: URINE SPECIMEN Performed By: #### 2 4356-8 #### [facility] CLIA [id number] [address] [place] [place] [address] Bilirubin Ql (U) Negative Normal Negative [facility] Comment on above: Order Comment: Speci men Type: URINE SPECIMEN Performed By: #### 2 4356-8 #### [facility] CLIA [id number] [address] [place] [address] Clarity (Unsp spec) Clear Normal Clear [facility] Comment on above: Order Comment: Speci men Type: URINE SPECIMEN Performed By: #### 2 4356-8 #### [facility] CLIA [id number] [address] [place] [address] Color (U) Yellow Normal Yellow [facility] Comment on above: Order Comment: Speci men Type: URINE SPECIMEN Performed By: #### 2 4356-8 #### [facility] CLIA [id number] [address] [place] [place] [address] Epithelial cells LM.HPF (Urine sed) [#/Area] Many Normal [facility] Comment on above: Order Comment: Speci men Type: URINE SPECIMEN Performed By: #### 2 4356-8 #### [facility] CLIA [id number] [address] [place] [address] Glucose Test strip (U) [Mass/Vol] Negative Normal Negative [facility] Comment on above: Order Comment: Speci men Type: URINE SPECIMEN Performed By: #### 2 4356-8 #### [facility] CLIA [id number] [address] [place] [address] Hemoglobin Ql (U) 2+ Abnormal Negative [facility] Comment on above: Order Comment: Speci men Type: URINE SPECIMEN Performed By: #### 2 4356-8 #### [facility] CLIA [id number] [address] [place] [address] Ketones Ql (U) Trace Abnormal Negative [facility] Comment on above: Order Comment: Speci men Type: URINE SPECIMEN Performed By: #### 2 4356-8 #### [facility] CLIA [id number] [address] [place] [address] Leukocyte esterase Test strip Ql (U) Trace Abnormal Negative [facility] Comment on above: Order Comment: Speci men Type: URINE SPECIMEN Performed By: #### 2 4356-8 #### [facility] CLIA [id number] [address] [place] [address] Nitrite Ql (U) Negative Normal Negative [facility] Comment on above: Order Comment: Speci men Type: URINE SPECIMEN Performed By: #### 2 4356-8 #### [facility] CLIA [id number] [address] [place] [address] STATES [place] [facility] pH (U) 6.5 [pH] Normal 5.0-8.0 [facility] Comment on above: Order Comment: Speci men Type: URINE SPECIMEN Performed By: #### 2 4356-8 #### [facility] CLIA [id number] [address] [place] [address] [place] [facility] Protein (U) [Mass/Vol] Normal [facility] Comment on above: Order Comment: Speci men Type: URINE SPECIMEN Result Comment: Visi ble blood causes falsely elevated results for analyte Protein. Due to this limitation, Protein will not be reported for patients whose urine contains visible blood. Performed By: #### 2 4356-8 #### [facility] CLIA [id number] [address] [place] [address] RBC LM.HPF (Urine sed) [#/Area] 0-3 /HPF Normal 0-3 /HPF [facility] Comment on above: Order Comment: Speci men Type: URINE SPECIMEN Performed By: #### 2 4356-8 #### [facility] CLIA [id number] [address] [place] [place] [address] Specific gravity (U) [Rel density] 1.010 Normal 1.005-1.030 [facility] Comment on above: Order Comment: Speci men Type: URINE SPECIMEN Performed By: #### 2 4356-8 #### [facility] CLIA [id number] [address] [place] [address] Urobilinogen Ql (U) 0.2 EU/dL Normal 0.2-1.0 EU/dL [facility] Comment on above: Order Comment: Speci men Type: URINE SPECIMEN Performed By: #### 2 4356-8 #### [facility] CLIA [id number] [address] [place] [address] WBC LM.HPF (Urine sed) [#/Area] 0-5 /HPF Normal 0-5 /HPF [facility] Comment on above: Order Comment: Speci men Type: URINE SPECIMEN Performed By: #### 2 4356-8 #### [facility] CLIA [id number] [address] [place] [place] [address] RF Hysterosalpingography S/I on 12-14-2020 RF Hysterosalpingography S/I Patient Name: KATIE ROBB Fluoroscopy ACCESSION EXAM DATE/TIME PROCEDURE ORDERING PROVIDER [id number] 12/14/2020 12:40 EDT RF Hysterosalpingography PATTI BARRAZA S/I CPT code 50074 Reason For Exam (RF Hysterosalpingography S/I) z31.41 [...] Transcribed Date and Time: 12/14/2020 12:50 Normal [facility] Free Thyroxineon 09-28-2017 Thyroxine (T4) free 1.14 ng/dL Normal 0.76-1.46 [facility] Comment on above: Performed By: #### F T4 ####[facility] [place], [place] [address] TSH, 3rd generationon 2017 TSH, 3rd generation 1.190 uIU/mL Normal 0.358-3.740 [facility] Comment on above: Performed By: #### T SH3 ####[address] [address] Vital Signs Date Time Vital Sign Value Performing Clinician Facility 03-17-2025 10:21-0400 Body height 170.[address] Liv Matta MD Work Phone: [facility] 03-17-2025 10:21-0400 Body mass index (BMI) [Ratio] 33.7 kg/m2 Dr. Liv Matta MD Work Phone: [facility] 03-17-2025 10:21-0400 Body weight 97.[address] Liv Matta MD Work Phone: [facility] 03-17-2025 10:21-0400 Diastolic blood pressure 80 mm[Hg] Dr. Liv Matta MD Work Phone: [facility] 03-17-2025 10:21-0400 Systolic blood pressure 120 mm[Hg] Dr. Liv Matta MD Work Phone: [facility] 03-05-2025 15:15-0400 Body height 170.[address] Liv Matta MD Work Phone: [facility] 03-05-2025 15:08-0400 Body mass index (BMI) [Ratio] 33.2 kg/m2 Dr. Liv Matta MD Work Phone: [facility] 03-05-2025 15:08-0400 Body weight 96.[address] Liv Matta MD Work Phone: [facility] 03-05-2025 15:08-0400 Diastolic blood pressure 72 mm[Hg] Dr. Liv Matta MD Work Phone: [facility] 03-05-2025 15:08-0400 Systolic blood pressure 111 mm[Hg] Dr. Liv Matta MD Work Phone: [facility] 02-19-2025 15:12-0400 Body height 170.[address] Liv Matta MD Work Phone: [facility] 02-19-2025 15:12-0400 Body mass index (BMI) [Ratio] 33.3 kg/m2 Dr. Liv Matta MD Work Phone: [facility] 02-19-2025 15:12-0400 Body weight 96.[address] Liv Matta MD Work Phone: [facility] 02-19-2025 15:12-0400 Diastolic blood pressure 73 mm[Hg] Dr. Liv Matta MD Work Phone: [facility] 02-19-2025 15:12-0400 Systolic blood pressure 105 mm[Hg] Dr. Liv Matta MD Work Phone: [facility] 01-29-2025 15:18-0400 Body height 170.18 cm Nikko Guerrero MD Work Phone: [facility] 01-29-2025 15:18-0400 Body mass index (BMI) [Ratio] 32.3 kg/m2 Nikko Guerrero MD Work Phone: [facility] 01-29-2025 15:18-0400 Body weight 93.52 kg Nikko Guerrero MD Work Phone: [facility] 01-29-2025 15:18-0400 Diastolic blood pressure 81 mm[Hg] Nikko Guerrero MD Work Phone: [facility] 01-29-2025 15:18-0400 Systolic blood pressure 121 mm[Hg] Nikko Guerrero MD Work Phone: 3(065)588-254655 [place] [address] 01-06-2025 14:11-0400 Body height 170.18 cm Nikko Guerrero MD Work Phone: 2(542)291-309479 [place] [address] 01-06-2025 14:09-0400 Body mass index (BMI) [Ratio] 31.8 kg/m2 Nikko Guerrero MD Work Phone: 0(844)227-318179 [place] [address] 01-06-2025 14:09-0400 Body weight 92.13 kg Nikko Guerrero MD Work Phone: 4(977)966-514579 [place] [address] 01-06-2025 14:09-0400 Diastolic blood pressure 75 mm[Hg] Nikko Guerrero MD Work Phone: 4(040)764-330479 [place] [address] 01-06-2025 14:09-0400 Systolic blood pressure 111 mm[Hg] Nikko Guerrero MD Work Phone: 8(497)139-725279 [place] [address] 01-01-2025 08:29-0400 Body height 170.18 cm Nikko Guerrero MD Work Phone: 8(784)706-772679 [place] [address] 01-01-2025 08:29-0400 Body mass index (BMI) [Ratio] 31.8 kg/m2 Nikko Guerrero MD Work Phone: 8(201)953-710379 [place] [address] 01-01-2025 08:29-0400 Body temperature 98.1 [degF] Nikko Guerrero MD Work Phone: 6(831)175-676679 [place] [address] 01-01-2025 08:29-0400 Body weight 92.07 kg Nikko Guerrero MD Work Phone: 3(593)312-881179 [place] [address] 01-01-2025 08:29-0400 Diastolic blood pressure 82 mm[Hg] Nikko Guerrero MD Work Phone: 6(402)908-503579 [place] [address] 01-01-2025 08:29-0400 Heart rate 91 /min Nikko Guerrero MD Work Phone: 5(504)135-729555 [place] [address] 01-01-2025 08:29-0400 SaO2% (BldA) [Mass fraction] 99 % Nikko Guerrero MD Work Phone: 4(739)314-105455 [place] [address] 01-01-2025 08:29-0400 Systolic blood pressure 122 mm[Hg] Nikko Guerrero MD Work Phone: 3(035)765-165255 [place] [address] 12-11-2024 14:56-0400 Body temperature 97.5 [degF] Nikko Guerrero MD Work Phone: 3(663)444-972379 [place] [address] 12-11-2024 14:56-0400 Diastolic blood pressure 60 mm[Hg] Nikko Guerrero MD Work Phone: 3(591)582-380779 [place] [address] 12-11-2024 14:56-0400 Heart rate 55 /min Nikko Guerrero MD Work Phone: 3(301)132-825479 [place] [address] 12-11-2024 14:56-0400 Respiratory rate 15 /min Nikko Guerrero MD Work Phone: 4(630)123-120779 [place] [address] 12-11-2024 14:56-0400 SaO2% (BldA) [Mass fraction] 100 % Nikko Guerrero MD Work Phone: 4(024)237-835479 [place] [address] 12-11-2024 14:56-0400 Systolic blood pressure 108 mm[Hg] Nikko Guerrero MD Work Phone: 5(932)884-896879 [place] [address] 12-05-2024 11:44-0400 Body height 170.18 cm Nikko Guerrero MD Work Phone: 3(285)127-520679 [place] [address] 12-05-2024 11:44-0400 Body mass index (BMI) [Ratio] 30.5 kg/m2 Nikko Guerrero MD Work Phone: 7(945)819-587079 [place] [address] 12-05-2024 11:44-0400 Body weight 88.56 kg Nikko Guerrero MD Work Phone: 9(997)943-345455 [place] [address] 12-05-2024 11:44-0400 Diastolic blood pressure 82 mm[Hg] Nikko Guerrero MD Work Phone: 0(816)175-745755 [place] [address] 12-05-2024 11:44-0400 Systolic blood pressure 116 mm[Hg] Nikko Guerrero MD Work Phone: 9(951)887-765255 [place] [address] 11-25-2024 15:17-0400 Body height 170.18 cm Nikko Guerrero MD Work Phone: [facility] 11-04-2024 15:20-0400 Body height 170.18 cm SHANNAN VAZQUEZ DO Work Phone: [facility] 11-04-2024 15:20-0400 Body mass index (BMI) [Ratio] 30.7 kg/m2 SHANNAN VAZQUEZ DO Work Phone: 2(738)832-762207 [place] [address] 11-04-2024 15:20-0400 Body weight 89.01 kg SHANNAN VAZQUEZ DO Work Phone: 3(064)310-527207 [place] [address] 11-04-2024 15:20-0400 Diastolic blood pressure 81 mm[Hg] SHANNAN VAZQUEZ DO Work Phone: 6(873)437-068907 [place] [address] 11-04-2024 15:20-0400 Systolic blood pressure 117 mm[Hg] SHANNAN VAZQUEZ DO Work Phone: 8(244)526-198907 [place] [address] 10-21-2024 14:58-0400 Body height 170.18 cm SHANNAN VAZQUEZ DO Work Phone: 2(852)195-017816 [address] 10-21-2024 14:54-0400 Body mass index (BMI) [Ratio] 30.5 kg/m2 SHANNAN VAZQUEZ DO Work Phone: 0(965)106-047007 [place] [address] 10-21-2024 14:54-0400 Body weight 88.5 kg SHANNAN VAZQUEZ DO Work Phone: 3(048)253-164116 [address] 10-21-2024 14:54-0400 Diastolic blood pressure 79 mm[Hg] SHANNAN VAZQUEZ DO Work Phone: 5(871)574-717607 [place] [address] 10-21-2024 14:54-0400 Systolic blood pressure 115 mm[Hg] SHANNAN VAZQUEZ DO Work Phone: 3(067)958-777107 [place] [address] 10-07-2024 14:44-0400 Body mass index (BMI) [Ratio] 30.3 kg/m2 SHANNAN VAZQUEZ DO Work Phone: 3(478)605-086007 [place] [address] 10-07-2024 14:44-0400 Body weight 87.77 kg SHANNAN VAZQUEZ DO Work Phone: 1(365)157-876207 [place] [address] 10-07-2024 14:44-0400 Diastolic blood pressure 84 mm[Hg] SHANNAN VAZQUEZ DO Work Phone: [facility] 10-07-2024 14:44-0400 Systolic blood pressure 121 mm[Hg] SHANNAN VAZQUEZ DO Work Phone: [facility] 10-06-2024 01:09-0400 Body temperature 98.2 [degF] SHANNAN VAZQUEZ DO Work Phone: [facility] 10-06-2024 01:09-0400 Diastolic blood pressure 83 mm[Hg] SHANNAN VAZQUEZ DO Work Phone: [facility] 10-06-2024 01:09-0400 Heart rate 83 /min SHANNAN VAZQUEZ DO Work Phone: [facility] 10-06-2024 01:09-0400 Respiratory rate 18 /min SHANNAN VAZQUEZ DO Work Phone: [facility] 10-06-2024 01:09-0400 SaO2% (BldA) [Mass fraction] 99 % SHANNAN VAZQUEZ DO Work Phone: [facility] 10-06-2024 01:09-0400 Systolic blood pressure 103 mm[Hg] SHANNAN VAZQUEZ DO Work Phone: [facility] 10-05-2024 21:56-0400 Body height 170.18 cm SHANNAN VAZQUEZ DO Work Phone: [facility] 10-05-2024 21:56-0400 Body mass index (BMI) [Ratio] 30.3 kg/m2 SHANNAN VAZQUEZ DO Work Phone: [facility] 10-05-2024 21:56-0400 Body weight 87.9 kg SHANNAN VAZQUEZ DO Work Phone: [facility] 07-22-2024 15:10-0500 Body mass index (BMI) [Ratio] 29.7 kg/m2 SHANNAN VAZQUEZ DO Work Phone: [facility] 07-22-2024 15:10-0500 Body weight 86.18 kg SHANNAN VAZQUEZ DO Work Phone: [facility] 07-22-2024 15:10-0500 Diastolic blood pressure 74 mm[Hg] SHANNAN VAZQUEZ DO Work Phone: [facility] 07-22-2024 15:10-0500 Systolic blood pressure 112 mm[Hg] SHANNAN VAZQUEZ DO Work Phone: [facility] 03-16-2023 13:28-0400 Body height 170.18 cm DO SHANNAN VAZQUEZ Work Phone: [facility] 03-16-2023 13:28-0400 Body mass index (BMI) [Ratio] 28.3 kg/m2 DO SHANNAN VAZQUEZ Work Phone: [facility] 03-16-2023 13:28-0400 Body weight 82.1 kg DO SHANNAN VAZQUEZ Work Phone: [facility] 03-16-2023 13:28-0400 Diastolic blood pressure 80 mm[Hg] DO SHANNAN VAZQUEZ Work Phone: [facility] 03-16-2023 13:28-0400 Systolic blood pressure 110 mm[Hg] DO SHANNAN VAZQUEZ Work Phone: [facility] 03-15-2023 14:41-0400 Body height 170.2 cm Deejay HILLMAN-C Work Phone: [facility] 03-15-2023 14:41-0400 Body mass index (BMI) [Ratio] 28.35 kg/m2 Deejay HILLMAN-C Work Phone: [facility] [employer] 03-15-2023 14:41-0400 Body temperature 98.91 [degF] Deejay Glasgow PA-C Work Phone: [facility] [employer] 03-15-2023 14:41-0400 Body weight 82.1 kg Deejay Glasgow PA-C Work Phone: [facility] [employer] 03-15-2023 14:41-0400 Diastolic blood pressure 68 mm[Hg] Deejay HILLMAN-C Work Phone: [facility] 03-15-2023 14:41-0400 Heart rate 70 /min Deejay Glasgow PA-C Work Phone: [facility] 03-15-2023 14:41-0400 SaO2% (BldA) [Mass fraction] 99 % Deejay HILLMAN-Jake Work Phone: [facility] 03-15-2023 14:41-0400 Systolic blood pressure 99 mm[Hg] Deejay HILLMAN-Jake Work Phone: [facility] 02-27-2023 08:57-0400 Body temperature 99 [degF] DO SHANNAN VAZQUEZ Work Phone: [facility] 02-27-2023 08:57-0400 Diastolic blood pressure 71 mm[Hg] DO SHANNAN VAZQUEZ Work Phone: [facility] 02-27-2023 08:57-0400 Heart rate 74 /min DO SHANNAN VAZQUEZ Work Phone: [facility] 02-27-2023 08:57-0400 Respiratory rate 15 /min DO SHANNAN VAZQUEZ Work Phone: [facility] 02-27-2023 08:57-0400 SaO2% (BldA) [Mass fraction] 99 % DO SHANNAN VAZQUEZ Work Phone: [facility] 02-27-2023 08:57-0400 Systolic blood pressure 113 mm[Hg] DO SHANNAN VAZQUEZ Work Phone: [facility] 02-26-2023 05:58-0400 Body mass index (BMI) [Ratio] 30.4 kg/m2 DO SHANNAN VAZQUEZ Work Phone: [facility] 02-26-2023 05:58-0400 Body weight 88 kg DO SHANNAN VAZQUEZ Work Phone: [facility] 02-25-2023 11:00-0400 Diastolic blood pressure 66 mm[Hg] DO SHANNAN VAZQUEZ Work Phone: [facility] 02-25-2023 11:00-0400 Heart rate 71 /min DO SHANNAN VAZQUEZ Work Phone: [facility] 02-25-2023 11:00-0400 Respiratory rate 16 /min DO SHANNAN VAZQUEZ Work Phone: [facility] 02-25-2023 11:00-0400 SaO2% (BldA) [Mass fraction] 97 % DO SHANNAN VAZQUEZ Work Phone: [facility] 02-25-2023 11:00-0400 Systolic blood pressure 114 mm[Hg] DO SHANNAN VAZQUEZ Work Phone: [facility] 02-25-2023 10:34-0400 Body height 170.18 cm DO SHANNAN VAZQUEZ Work Phone: [facility] 02-25-2023 10:34-0400 Body mass index (BMI) [Ratio] 29.5 kg/m2 DO SHANNAN VAZQUEZ Work Phone: [facility] 02-25-2023 10:34-0400 Body weight 85.6 kg DO SHANNAN VAZQUEZ Work Phone: [facility] 02-25-2023 06:57-0400 Body temperature 97.8 [degF] DO SHANNAN VAZQUEZ Work Phone: [facility] 02-04-2023 13:32-0400 Body temperature 96.7 [degF] DO SHANNAN VAZQUEZ Work Phone: [facility] 02-04-2023 13:32-0400 Diastolic blood pressure 75 mm[Hg] DO SHANNAN VAZQUEZ Work Phone: [facility] 02-04-2023 13:32-0400 Heart rate 103 /min DO SHANNAN VAZQUEZ Work Phone: [facility] 02-04-2023 13:32-0400 Respiratory rate 17 /min DO SHANNAN VAZQUEZ Work Phone: [facility] 02-04-2023 13:32-0400 Systolic blood pressure 134 mm[Hg] DO SHANNAN VAZQUEZ Work Phone: [facility] 02-03-2023 16:30-0400 SaO2% (BldA) [Mass fraction] 99 % DO SHANNAN VAZQUEZ Work Phone: [facility] 02-01-2023 19:35-0400 Body mass index (BMI) [Ratio] 33 kg/m2 DO SHANNAN VAZQUEZ Work Phone: [facility] 02-01-2023 19:35-0400 Body weight 95.88 kg DO SHANNAN VAZQUEZ Work Phone: [facility] 01-29-2023 14:37-0400 Body mass index (BMI) [Ratio] 32.1 kg/m2 DO SHANNAN VAZQUEZ Work Phone: [facility] 01-29-2023 14:37-0400 Body weight 95.82 kg DO SHANNAN VAZQUEZ Work Phone: [facility] 01-29-2023 14:37-0400 Diastolic blood pressure 84 mm[Hg] DO SHANNAN VAZQUEZ Work Phone: [facility] 01-29-2023 14:37-0400 Systolic blood pressure 124 mm[Hg] DO SHANNAN VAZQUEZ Work Phone: [facility] 01-22-2023 10:06-0400 Body height 172.72 cm Shannan PHELPS Work Phone: [facility] 01-22-2023 10:06-0400 Body mass index (BMI) [Ratio] 31.4 kg/m2 Shannan PHELPS Work Phone: [facility] 01-22-2023 10:06-0400 Body weight 93.66 kg Shannan PHELPS Work Phone: 4(315)181-861907 [place] [address] 01-22-2023 10:06-0400 Diastolic blood pressure 83 mm[Hg] Shannan PHELPS Work Phone: 5(474)437-256307 [place] [address] 01-22-2023 10:06-0400 Systolic blood pressure 122 mm[Hg] Shannan PHELPS Work Phone: [facility] 01-16-2023 09:31-0400 Body mass index (BMI) [Ratio] 32.3 kg/m2 Shannan PHELPS Work Phone: [facility] 01-16-2023 09:31-0400 Body temperature 99.3 [degF] Shannan PHELPS Work Phone: [facility] 01-16-2023 09:31-0400 Body weight 96.61 kg Shannan PHELPS Work Phone: [facility] 01-16-2023 09:31-0400 Diastolic blood pressure 64 mm[Hg] Shannan PHELPS Work Phone: [facility] 01-16-2023 09:31-0400 Heart rate 126 /min Shannan PHELPS Work Phone: [facility] 01-16-2023 09:31-0400 Respiratory rate 16 /min Shannan PHELPS Work Phone: [facility] 01-16-2023 09:31-0400 SaO2% (BldA) [Mass fraction] 98 % Shannan PHELPS Work Phone: [facility] 01-16-2023 09:31-0400 Systolic blood pressure 98 mm[Hg] Shannan PHELPS Work Phone: 5(618)094-101707 [place] [address] 01-10-2023 15:49-0400 Body height 172.72 cm Shannan PHELPS Work Phone: [facility] 01-10-2023 15:47-0400 Body mass index (BMI) [Ratio] 32.4 kg/m2 Shannan PHELPS Work Phone: [facility] 01-10-2023 15:47-0400 Body weight 96.84 kg Shannan PHELPS Work Phone: [facility] 01-10-2023 15:47-0400 Diastolic blood pressure 77 mm[Hg] Shannan PHELPS Work Phone: [facility] 01-10-2023 15:47-0400 Systolic blood pressure 115 mm[Hg] Shannan PHELPS Work Phone: [facility] 12-27-2022 15:54-0400 Body mass index (BMI) [Ratio] 32.3 kg/m2 Shannan PHELPS Work Phone: [facility] 12-27-2022 15:54-0400 Body weight 96.38 kg Shannan PHELPS Work Phone: 1(685)630-291107 [place] [address] 12-27-2022 15:54-0400 Diastolic blood pressure 79 mm[Hg] Shannan PHELPS Work Phone: 8(410)230-621407 [place] [address] 12-27-2022 15:54-0400 Systolic blood pressure 121 mm[Hg] Shannan PHELPS Work Phone: 2(719)036-081407 [place] [address] 12-14-2022 15:37-0400 Body mass index (BMI) [Ratio] 31.6 kg/m2 Shannan PHELPS Work Phone: 2(025)124-938307 [place] [address] 12-14-2022 15:37-0400 Body weight 94.46 kg Shannan PHELPS Work Phone: 4(263)188-940907 [place] [address] 12-14-2022 15:37-0400 Diastolic blood pressure 74 mm[Hg] Shannan PHELPS Work Phone: 8(814)991-040207 [place] [address] 12-14-2022 15:37-0400 Systolic blood pressure 118 mm[Hg] Shannan PHELPS Work Phone: 0(986)340-245807 [place] [address] 11-29-2022 15:37-0400 Body height 172.72 cm Shannan PHELPS Work Phone: 9(768)792-531707 [place] [address] 11-29-2022 15:37-0400 Body mass index (BMI) [Ratio] 31.5 kg/m2 Shannan PHELPS Work Phone: 4(586)277-173507 [place] [address] 11-29-2022 15:37-0400 Body weight 94.06 kg Shannan PHELPS Work Phone: 4(266)830-579707 [place] [address] 11-29-2022 15:37-0400 Diastolic blood pressure 83 mm[Hg] Shannan PHELPS Work Phone: 8(198)950-561307 [place] [address] 11-29-2022 15:37-0400 Systolic blood pressure 118 mm[Hg] Shannan PHELPS Work Phone: 7(474)923-215416 [address] 10-25-2022 11:41-0400 Body mass index (BMI) [Ratio] 30.4 kg/m2 Shannan PHELPS Work Phone: [facility] 10-25-2022 11:41-0400 Body weight 90.77 kg Shannan PHELPS Work Phone: [facility] 10-25-2022 11:41-0400 Diastolic blood pressure 90 mm[Hg] Shannan PHELPS Work Phone: 1(158)982-089507 [place] [address] 10-25-2022 11:41-0400 Systolic blood pressure 124 mm[Hg] Shannan PHELPS Work Phone: 2(306)023-423907 [place] [address] 09-27-2022 11:41-0400 Body weight 89.58 kg Shannan PHELPS Work Phone: 0(952)821-794307 [place] [address] 09-27-2022 11:41-0400 Diastolic blood pressure 72 mm[Hg] Shannan PHELPS Work Phone: 7(012)353-435007 [place] [address] 09-27-2022 11:41-0400 Systolic blood pressure 127 mm[Hg] Shannan PHELPS Work Phone: 0(190)475-829307 [place] [address] 09-26-2022 10:02-0400 Body temperature 98.2 [degF] Shannan PHELPS Work Phone: 0(798)236-065207 [place] [address] 09-26-2022 10:02-0400 Body weight 90.32 kg Shannan PHELPS Work Phone: [facility] 09-26-2022 10:02-0400 Diastolic blood pressure 76 mm[Hg] Shannan PHELPS Work Phone: [facility] 09-26-2022 10:02-0400 Heart rate 98 /min Shannan PEHLPS Work Phone: [facility] 09-26-2022 10:02-0400 Respiratory rate 16 /min Shannan PHELPS Work Phone: [facility] 09-26-2022 10:02-0400 SaO2% (BldA) [Mass fraction] 98 % Shannan PHELPS Work Phone: [facility] 09-26-2022 10:02-0400 Systolic blood pressure 113 mm[Hg] Shannan PHELPS Work Phone: [facility] 08-29-2022 10:20-0400 Body height 172.72 cm Shannan PHELPS Work Phone: [facility] 08-29-2022 10:20-0400 Body mass index (BMI) [Ratio] 28.8 kg/m2 Shannan PHELPS Work Phone: [facility] 08-29-2022 10:20-0400 Body weight 86.18 kg Shannan PHELPS Work Phone: [facility] 08-29-2022 10:20-0400 Diastolic blood pressure 82 mm[Hg] Shannan PHELPS Work Phone: 7(055)209-506407 [place] [address] 08-29-2022 10:20-0400 Systolic blood pressure 124 mm[Hg] Shannan PHELPS Work Phone: 4(254)510-331807 [place] [address] 08-22-2022 09:28-0400 Body mass index (BMI) [Ratio] 28.8 kg/m2 Shannan PHELPS Work Phone: 4(624)587-770707 [place] [address] 08-22-2022 09:28-0400 Body temperature 98.2 [degF] Shannan PHELPS Work Phone: 3(279)833-151207 [place] [address] 08-22-2022 09:28-0400 Body weight 86.18 kg Shannan PHELPS Work Phone: 0(677)086-823107 [place] [address] 08-22-2022 09:28-0400 Diastolic blood pressure 68 mm[Hg] Shannan PHELPS Work Phone: 2(762)283-426507 [place] [address] 08-22-2022 09:28-0400 Heart rate 114 /min Shannan PHELPS Work Phone: [facility] 08-22-2022 09:28-0400 Respiratory rate 14 /min Shannan PHELPS Work Phone: [phone] [place] [address] 08-22-2022 09:28-0400 SaO2% (BldA) [Mass fraction] 98 % Shannan PHELPS Work Phone: [facility] 08-22-2022 09:28-0400 Systolic blood pressure 102 mm[Hg] Shannan PHELPS Work Phone: [facility] 08-08-2022 11:01-0500 Diastolic blood pressure 77 mm[Hg] Shannan PHELPS Work Phone: [facility] 08-08-2022 11:01-0500 Systolic blood pressure 118 mm[Hg] Shannan PHELPS Work Phone: [phone] [place] [address] 08-08-2022 10:39-0500 Body mass index (BMI) [Ratio] 29.2 kg/m2 Shannan PHELPS Work Phone: [phone](006)[phone] [place] [address] 08-08-2022 10:39-0500 Body weight 84.53 kg Shannan PHELPS Work Phone: 4([phone])[phone] [place] [address] 07-11-2022 10:45-0500 Body height 170.18 cm Shannan Vazquez Work Phone: [phone] [place] [address] 07-11-2022 10:45-0500 Body mass index (BMI) [Ratio] 28.1 kg/m2 Shannan Vazquez Work Phone: [phone] [place] [address] 07-11-2022 10:45-0500 Body weight 81.64 kg Shannan Vazquez Work Phone: 3([phone] [place] [address] 07-11-2022 10:45-0500 Diastolic blood pressure 86 mm[Hg] Shannan Vazquez Work Phone: [phone] [place] [address] 07-11-2022 10:45-0500 Systolic blood pressure 124 mm[Hg] Shannan Vazquez Work Phone: [facility] 04-06-2021 14:51-0400 Diastolic blood pressure 70 mm[Hg] Kalina Mccullough MD Work Phone: [facility] Work Phone: 04-06-2021 14:51-0400 Heart rate 69 /min Kalina Mccullough MD Work Phone: [facility] Work Phone: 04-06-2021 14:51-0400 Respiratory rate 16 /min Kalina Mccullough MD Work Phone: [employer] Work Phone: 04-06-2021 14:51-0400 SaO2% (BldA) [Mass fraction] 100 % Kalina Mccullough MD Work Phone: [employer] Work Phone: 04-06-2021 14:51-0400 Systolic blood pressure 102 mm[Hg] Kalina Mccullough MD Work Phone: [employer] Work Phone: 04-06-2021 12:46-0400 Body height 170.2 cm Kalina Mccullough MD Work Phone: [employer] Work Phone: 04-06-2021 12:46-0400 Body mass index (BMI) [Ratio] 25.06 kg/m2 Kalina Mccullough MD Work Phone: [employer] Work Phone: 04-06-2021 12:46-0400 Body temperature 97.59 [degF] Kalina Mccullough MD Work Phone: [employer] Work Phone: 04-06-2021 12:46-0400 Body weight 72.58 kg Kalina Mccullough MD Work Phone: [employer] Work Phone: Encounters Encounter Date Encounter Type Care Provider Facility Start: 04-17-2025 ambulatory Niya Armstrong Facility :[facility] Start: 04-17-2025 End: 04-17-2025 ambulatory Liv Matta Facility:[facility] Start: 04-15-2025 End: 04-15-2025 ambulatory JOHANNY ANSARI [facility] Start: 04-02-2025 End: 04-02-2025 ambulatory Liv [place] Facility:[facility] Start: 03-24-2025 End: 03-24-2025 ambulatory PAOLA NUÑEZ [facility] Start: 03-17-2025 End: 03-17-2025 Patient encounter procedure Julia MCINTOSH -[facility] Work Phone: Start: 03-17-2025 End: 03-17-[address] Liv Matta MD Work Phone: -[facility] Start: 03-05-2025 End: 03-05-2025 Patient encounter procedure Niya Armstrong CNM -[facility] Work Phone: Start: 03-05-2025 End: 03-05-[address] Liv Matta MD Work Phone: [facility] Start: 03-03-2025 Encounter for genera l adult medical examination without abnormal findings [facility] Start: 02-24-2025 End: 02-24-2025 ambulatory BANNER Santos [facility] Start: 02-19-2025 End: 02-19-2025 Patient encounter procedure Julia MCINTOSH -[facility] Work Phone: Start: 02-19-2025 End: 02-19-[address] Liv Matta MD Work Phone: -[facility] Start: 02-19-2025 End: 02-19-2025 ambulatory Liv Matta Facility:[facility] Start: 01-29-2025 End: 01-29-[address] Nat Gomez MD -[facility] Work Phone: Start: 01-29-2025 End: 01-29-2025 ambulatory Nikko Guerrero MD Work Phone: -[facility] Start: 01-29-2025 End: 01-29-2025 ambulatory PAOLA Graham [facility] Start: 01-16-2025 End: 01-16-2025 ambulatory PAOLA R [facility] Start: 01-08-2025 ambulatory Aruna Gomez Facility:[facility] Start: 01-06-2025 End: 01-06-[address] Paola Weeks DO -[facility] Work Phone: Start: 01-06-2025 End: 01-06-2025 ambulatory Nikko Guerrero MD Work Phone: [facility] Start: 01-02-2025 End: 01-02-2025 ambulatory PAOLA NUÑEZ [facility] Start: 01-01-2025 End: 01-01-2025 Patient encounter procedure Bharathi Moreno [facility] Work Phone: Start: 01-01-2025 End: 01-01-2025 ambulatory Nikko Guerrero MD Work Phone: -[facility] Start: 12-31-2024 End: 01-01-2025 ambulatory Bharathi Moreno Facility:[facility] Start: 12-25-2024 ambulatory Paola Degroot cility:[facility] Start: 12-25-2024 Non-patient / Non-visit Dr. Chris Weeks DO -[facility] Start: 12-25-2024 End: 12-25-2024 ambulatory Nikko Guerrero MD Work Phone: [facility] Start: 12-25-2024 End: 12-25-[address] Paola Weeks DO [facility] Work Phone: Start: 12-16-2024 End: 12-16-[address] Aruna Gomez [place] -[facility] Work Phone: Start: 12-16-2024 End: 12-16-2024 ambulatory Nikko Guerrero MD Work Phone: -[facility] Start: 12-11-2024 End: 12-11-2024 Patient encounter procedure Bharathi Moreno PA -[facility] Work Phone: Start: 12-11-2024 End: 12-11-2024 ambulatory Nikko Guerrero MD Work Phone: -[facility] Start: 12-11-2024 End: 12-11-[address] Aruna Gomez [place] -[facility] Work Phone: Start: 12-11-2024 End: 12-11-2024 ambulatory Nikko Guerrero MD Work Phone: [facility] Start: 12-05-2024 End: 12-05-2024 Patient encounter procedure Nick GATES -[facility] Work Phone: Start: 12-05-2024 End: 12-05-2024 ambulatory Nikko Guerrero MD Work Phone: [facility] Start: 11-26-2024 End: 11-26-[address] Aruna Gomez DC -[facility] Work Phone: Start: 11-26-2024 End: 11-26-2024 ambulatory Nikko Guerrero MD Work Phone: [facility] Work Phone: Start: 11-04-2024 End: 11-04-2024 Patient encounter procedure Niya Armstrong [facility] -[facility] Work Phone: Start: 11-04-2024 End: 11-04-2024 ambulatory SHANNAN VAZQUEZ DO Work Phone: [facility] Work Phone: Start: 10-21-2024 End: 10-21-[address] Nat Gomez MD -[facility] Work Phone: Start: 10-21-2024 End: 10-21-2024 ambulatory SHANNAN VAZQUEZ DO Work Phone: [facility] Work Phone: Start: 10-21-2024 End: 10-21-2024 ambulatory Nat Gomez Facility:[facility] Start: 10-07-2024 End: 10-07-2024 Patient encounter procedure Niya Armstrong CN -Laboratory, Specimen Work Phone: Start: 10-07-2024 End: 10-07-2024 Patient encounter procedure Niya Armstrong CN -[facility] Work Phone: Start: 10-07-2024 End: 10-07-2024 ambulatory Niya Armstrong Facility:[facility] Start: 10-07-2024 End: 10-07-2024 ambulatory Niya Armstrong Facility:[facility] Start: 10-05-2024 End: 10-06-2024 Emergency department patient visit SHANNAN VAZQUEZ DO Work Phone: -Emergency Department Work Phone: Start: 07-22-2024 End: 07-22-[address] Aruna Gomez [place] -[facility] Work Phone: Start: 07-22-2024 End: 07-22-2024 ambulatory Aruna Gomez Facility:[facility] Start: 05-01-2024 End: 05-01-2024 ambulatory Liv Matta Facility:[facility] Start: 10-05-2023 End: 10-05-2023 ambulatory DO SHANNAN VAZQUEZ Work Phone: [facility] Work Phone: Start: 10-05-2023 End: 10-05-2023 Patient encounter procedure DO SHANNAN VAZQUEZ Work Phone: [facility]-Laboratory Work Phone: Start: 06-18-2023 Non-patient / Non-visit DO MARY VAZQUEZ Work Phone: [facility] Start: 06-15-2023 End: 06-15-2023 ambulatory DO SHANNAN VAZQUEZ Work Phone: [facility] Work Phone: Start: 06-15-2023 End: 06-15-2023 Patient encounter procedure DO SHANNAN VAZQUEZ Work Phone: [facility]-Pulmonary Services/Neurology Work Phone: Start: 03-16-2023 End: 03-16-2023 Patient encounter procedure DO SHANNAN VAZQUEZ Work Phone: [facility] Work Phone: Start: 03-15-2023 End: 03-15-2023 ambulatory DEEJAY GLASGOW [facility] Start: 03-15-2023 End: 03-15-2023 Office outpatient visit 15 minutes Deejay Glasgow PA-C Work Phone: [facility] Comment on above: Bronchospasm (Primar y Dx); Flu vaccine need Start: 03-14-2023 ambulatory Sariah Parker RN [facility] Clinical Communication Start: 03-14-2023 Patient encounter procedure Sariah Parker RN [facility] Clinical Communication Start: 02-27-2023 Non-patient / Non-visit DO CHR ISMOSES VAZQUEZ Work Phone: [facility] Work Phone: Start: 02-27-2023 Non-patient / Non-visit DO CHR ISTINA VAZQUEZ Work Phone: [facility] Start: 02-26-2023 Non-patient / Non-visit DO CHR ISTINA VAZQUEZ Work Phone: [facility] Work Phone: Start: 02-26-2023 Non-patient / Non-visit DO CHR ISTINA VAZQUEZ Work Phone: [facility] Start: 02-25-2023 Non-patient / Non-visit DO CHR ISTINA VAZQUEZ Work Phone: [facility] Work Phone: Start: 02-25-2023 End: 02-27-2023 Evaluation and management of inpatient DO SHANNAN VAZQUEZ Work Phone: [facility] Work Phone: Start: 02-25-2023 Non-patient / Non-visit DO CHR ISTINA VAZQUEZ Work Phone: [facility] Start: 02-25-2023 Admission to [facility] DO SHANNAN VAZQUEZ Work Phone: [facility]-[employer] Work Phone: Start: 02-25-2023 ambulatory DO SHANNAN SRIVASTAVA Work Phone: [facility] Work Phone: Start: 02-04-2023 Non-patient / Non-visit DO CHR MARYLINMOSES VAZQUEZ Work Phone: [facility] Start: 02-03-2023 Non-patient / Non-visit DO CHR MARYLINMOSES VAZQUEZ Work Phone: [facility] Start: 02-02-2023 Non-patient / Non-visit DO CHR VASU VAZQUEZ Work Phone: [facility] Start: 02-01-2023 End: 02-04-2023 Evaluation and management of inpatient DO SHANNAN VAZQUEZ Work Phone: [facility]-Women's Pavilion Work Phone: Start: 01-29-2023 End: 01-29-2023 Patient encounter procedure DO SHANNAN VAZQUEZ Work Phone: [facility] Work Phone: Start: 01-22-2023 End: 01-22-2023 Patient encounter procedure Shannan PHELPS Work Phone: [facility] Work Phone: Start: 01-22-2023 End: 01-22-2023 ambulatory Shannan PHELPS Work Phone: [facility] Work Phone: Start: 01-22-2023 End: 01-22-2023 Patient encounter procedure Shannan PHELPS Work Phone: [facility]-Outpatient Pavilion Ultrasound Work Phone: Start: 01-16-2023 End: 01-16-2023 Patient encounter procedure Shannan PHELPS Work Phone: [facility] Work Phone: Start: 01-10-2023 End: 01-10-2023 ambulatory Shannan PHELPS Work Phone: [facility] Work Phone: Start: 01-10-2023 End: 01-10-2023 Patient encounter procedure Shannan PHELPS Work Phone: [facility]-Laboratory, Specimen Work Phone: Start: 01-10-2023 End: 01-10-2023 Patient encounter procedure Shannan PHELPS Work Phone: [facility] Work Phone: Start: 12-27-2022 End: 12-27-2022 Patient encounter procedure Shannan PHELPS Work Phone: [facility] Work Phone: Start: 12-14-2022 End: 12-14-2022 Patient encounter procedure Shannan PHELPS Work Phone: [facility] Work Phone: Start: 12-01-2022 Non-patient / Non-visit Kishan PHELPS Work Phone: [facility] Start: 12-01-2022 End: 12-01-2022 ambulatory Shannan PHELPS Work Phone: [facility] Work Phone: Start: 12-01-2022 End: 12-01-2022 Patient encounter procedure Shannan PHELPS Work Phone: [facility]-Cardiovascular Services Start: 11-29-2022 End: 11-29-2022 ambulatory Shannan PHELPS Work Phone: [facility] Work Phone: Start: 11-29-2022 End: 11-29-2022 Patient encounter procedure Shannan PHELPS Work Phone: [facility] Start: 11-16-2022 End: 11-16-2022 Patient encounter procedure Shannan PHELPS Work Phone: [facility]-Outpatient Pavilion Ultrasound Start: 10-26-2022 End: 10-26-2022 Patient encounter procedure Shannan PHELPS Work Phone: [facility] Start: 10-25-2022 End: 10-25-2022 Patient encounter procedure Shannan PHELPS Work Phone: [facility] Spec[facility] Start: 10-25-2022 End: 10-25-2022 Patient encounter procedure Shannan PHELPS Work Phone: [facility] Start: 09-27-2022 End: 09-27-2022 Patient encounter procedure Shannan PHELPS Work Phone: [facility] Start: 09-26-2022 End: 09-26-2022 Patient encounter procedure Shannan PHELPS Work Phone: [facility] Endocrinology Start: 09-21-2022 End: 09-21-2022 Patient encounter procedure Shannan PHELPS Work Phone: [facility]-Outpatient Pavilion Ultrasound Start: 08-29-2022 End: 08-29-2022 ambulatory Shannan PHELPS Work Phone: [facility] Work Phone: Start: 08-29-2022 End: 08-29-2022 Patient encounter procedure Shannan PHELPS Work Phone: [facility] Start: 08-29-2022 End: 08-29-2022 Patient encounter procedure Shannan PHELPS Work Phone: [facility] Start: 08-22-2022 End: 08-22-2022 Patient encounter procedure Shannan PHELPS Work Phone: [facility] Start: 08-08-2022 End: 08-08-2022 Patient encounter procedure Shannan PHELPS Work Phone: [facility] Start: 07-17-2022 End: 07-17-2022 ambulatory Shannan Vazquez Work Phone: [facility] Work Phone: Start: 07-17-2022 End: 07-17-2022 Patient encounter procedure Shannan Vazquez Work Phone: [facility]-Laboratory, [place] Start: 07-13-2022 Non-patient / Non-visit Kishan Vazquez Work Phone: [facility] Start: 07-11-2022 End: 07-11-2022 Patient encounter procedure [facility] Start: 07-11-2022 End: 07-11-2022 Patient encounter procedure Shannan Vazquez Work Phone: [facility] Start: 04-25-2022 End: 04-25-2022 Patient encounter procedure [facility]ann[facility]quez [facility] Start: 04-12-2022 ambulatory Pt States None PCP Faci lity:[facility] Start: 04-12-2022 End: 04-12-2022 ambulatory [facility] Start: 03-27-2022 End: 03-27-2022 ambulatory [facility] Work Phone: Start: 03-27-2022 End: 03-27-2022 Patient encounter procedure [facility]-Laboratory Start: 03-23-2022 [facility] Start: 03-23-2022 [facility] Start: 02-06-2022 [facility] Start: 08-01-2021 End: 08-01-2021 Subsequent hospital visit by physician Laurence Golden MD Work Phone: [facility] [place] [facility] Start: 04-06-2021 End: 04-06-2021 Subsequent hospital visit by physician Kalina Mccullough MD Work Phone: [facility] [address] [facility] Comment on above: Arrived Start: 03-01-2021 End: 03-01-2021 Subsequent hospital visit by physician Laurence Golden MD Work Phone: [facility] Comment on above: Arrived Start: 09-28-2017 End: 09-29-2017 Ambulatory RACHNA ALVAREZ Facility:[facility] Cancer cervix - screening done Damon Koch -[facility] Work Phone: Procedures Date Procedure Procedure Detail Performing Clinician Start: 02-19-2025 Serologic test for syphilis Dr. Liv Matta MD Work Phone: Start: 01-01-2025 Urine culture Nikko beltran MD Work Phone: Start: 12-25-2024 MRI of pelvis Nikko beltran MD Work Phone: Start: 12-25-2024 Ultrasonography in f irst trimester Nikko Guerrero MD Work Phone: Start: 10-21-2024 Hepatitis C antibody measurement SHANNAN VAZQUEZ Work Phone: Comment on above: Reactive: Presumptiv e evidence of antibodies to HCV. Follow CDC recommendations for supplemental testing.Non-Reactive: Antibodies to HCV were not detected; does not exclude the possibility of exposure to HCVReactive Results are presumptive evidence of antibodies to HCV. Follow CDC recommendations for supplemental testing.Order confirmation testing: HCV Quant by PCR testing - HCVPCR #[id number] Non Reactive: < 0.8 Equivocal: >/= 0.8 to < 1.0 Reactive: >/= 1.0The CDC requires that a reactive/equivocal HCV antibody result be sent out for confirmation. HCV Quant by PCR testing. Start: 10-21-2024 Procedure SHANNAN TAYLOR GOLDBERG Work Phone: Start: 10-21-2024 Rubella IgG measurement [...] Start: 09-21-2022 Transvaginal obstetr ic ultrasonography Shannan Vazquez LENIN Work Phone: Start: 09-21-2022 anatomy study Chr vasu Vazquez [facility] Work Phone: Start: 04-06-2021 Colonoscopy 3m Scannin g Cytopathology proced ure, preparation of smear, genital source Shannan PHELPS Work Phone: Investigation of tra nsfusion reaction Shannan PHELPS Work Phone: Tonsillectomy Damon August Urine culture Shannan noe Work Phone: Urine culture Shannan noe OLS Work Phone: Plan of Treatment Date Care Activity Detail Author Start: 01-18-2042 Zoster Vaccines (1 of 2) Zoste r Vaccines (1 of 2) [facility] Start: 11-29-2032 DTaP/Tdap/Td Vaccine s (8 - Td or Tdap) DTaP/Tdap/Td Vaccines (8 - Td or Tdap) [facility] Start: 03-05-2025 [facility] Start: 02-19-2025 Cytomegalovirus IgG antibody measurement [facility] Start: 02-19-2025 Cytomegalovirus IgM antibody assay [facility] Start: 02-19-2025 CBC W Auto Different ial panel - Blood [facility] Start: 02-19-2025 Measurement of gluco se 2 hours after glucose challenge for glucose tolerance test [facility] Start: 02-19-2025 Serologic test for syphilis [facility] Start: 02-19-2025 [facility] Start: 12-25-2024 Patient discharge [facility] Start: 10-21-2024 CBC W Auto Different ial panel - Blood [facility] Start: 10-21-2024 Hepatitis C antibody measurement [facility] Start: 10-21-2024 Procedure [facility] Start: 10-21-2024 Rubella IgG measurement [facility] Start: 10-21-2024 Serologic test for syphilis [facility] Start: 10-21-2024 [facility] Start: 10-06-2024 [facility] Start: 01-20-2024 DTaP/Tdap/Td vaccine (7 - Td or Tdap) DTaP/Tdap/Td vaccine (7 - Td or Tdap) [facility] Start: 03-15-2023 End: 03-15-2024 XR Chest 2 Views XR chest 2 views Imaging Routine Bronchospasm Expected: 03/15/2023, Expires: 03/15/2024 [facility] Comment on above: Expected: 03/15/2023 , Expires: 03/15/2024 Start: 02-27-2023 Patient discharge [facility] Start: 02-26-2023 Administration of bl ood product [facility] Start: 02-26-2023 Transfusion of red b lood cells [facility] Start: 02-25-2023 End: 02-26-2023 [facility] Start: 02-25-2023 Administration of bl ood product [facility] Start: 02-25-2023 Application of intermittent pneumatic compression device [facility] Start: 02-25-2023 Administration of medication [facility] Start: 02-25-2023 Application of ice c ollar, cap or bag [facility] Start: 02-25-2023 Application of intermittent pneumatic compression device [facility] Start: 02-25-2023 Catheterization of vein [facility] Start: 02-25-2023 Introduction of urin jaquelin catheter [facility] Start: 02-25-2023 Measuring intake and output [facility] Start: 02-25-2023 Notification of physician [facility] Start: 02-25-2023 Procedure discontinued [facility] Start: 02-25-2023 Provision of activit y privileges [facility] Start: 02-25-2023 Vital signs measurements [facility] Start: 02-25-2023 Admission procedure [facility] Start: 02-25-2023 Dilation and curetta ge of uterus Dilation and Curettage, Suction (Not Applicable) [facility] Start: 02-09-2023 Influenza vaccination Influenza Vacc ine (#1) [facility] Start: 02-04-2023 Patient discharge [facility] Start: 02-02-2023 [facility] [facility] Start: 08-25-2023 Application of ice c ollar, cap or bag [facility] Start: 02-02-2023 Catheterization of vein [facility] Start: 02-02-2023 Introduction of urin jaquelin catheter [facility] Start: 02-02-2023 Measuring intake and output [facility] Start: 02-02-2023 Notification of physician [facility] Start: 02-02-2023 Procedure discontinued [facility] Start: 02-02-2023 Provision of activit y privileges [facility] Start: 02-02-2023 Vital signs measurements [facility] Start: 02-02-2023 [facility] Start: 02-01-2023 Admission procedure [facility] Start: 08-29-2022 Procedure [facility] Start: 01-18-2022 Screening for malign ant neoplasm of cervix [facility] Start: 06-24-2021 COVID-19 Vaccine (4 - Moderna series) COVID-19 Vaccine (4 - Moderna series) [facility] Start: 04-06-2021 End: 04-06-2021 Patient encounter procedure 04/06/2021 Appointment IP Unit Kalina Mccullough MD [address] [place] [address] [place] [id number] End[facility] Start: 02-09-2021 Influenza vaccination Flu vaccine (# 1) [facility] Work Phone: Start: 07-27-2014 Hepatitis B Vaccines (3 of 3 - 3-dose series) Hepatitis B Vaccines (3 of 3 - 3-dose series) [facility] Start: 02-16-2014 Hepatitis B vaccine (2 of 3 - 3-dose primary series) Hepatitis B vaccine (2 of 3 - 3-dose primary series) [facility] Start: 01-18-2013 Screening for malign ant neoplasm of cervix Pap smear [facility] Start: 01-18-2010 Diabetes mellitus screening Diabetes Screening [facility] Start: 01-18-2010 Hepatitis C screening Hepatitis C Sc reening [facility] Start: 01-18-2007 HIV screening HIV screen [facility] Start: 2004 COVID-19 Vaccine (1) COVID-19 Vaccin e (1) [facility] Work Phone: Start: 2004 Depression Screen Depression Screen [facility] Start: 2004 Depression Screening Depression Scre ening [facility] Start: 01-18-1997 COVID-19 Vaccine (1) COVID-19 Vaccin e (1) [facility] Start: 1992 Hepatitis C screening Hepatitis C sc reen [facility] Start: 1992 HIV screening HIV Screening [facility] Start: 1992 Thyroid stimulating hormone measurement TSH Level [facility] CBC W Auto Different ial panel - Blood [facility] Complete PFT study Complete PFT study PFT Routine Bronchospasm Ordered: 03/15/2023 [facility] Work Phone: Comment on above: Ordered: 03/15/2023 Erythrocyte mean corpuscular volume determination [facility] Erythrocyte mean corpuscular volume determination [facility] anatomy study [facility] Hematocrit [Volume Fraction] of Blood [facility] Hematocrit [Volume Fraction] of Blood [facility] Hemoglobin [Mass/vol ume] in Blood [facility] Hemoglobin [Mass/vol ume] in Blood [facility] Hepatitis B virus sanchez rface Ag [Presence] in Serum [facility] Leukocytes [#/volume ] in Blood [facility] Leukocytes [#/volume ] in Blood [facility] Mean corpuscular hemoglobin concentration determination [facility] Mean corpuscular hemoglobin concentration determination [facility] Mean corpuscular hemoglobin determination [facility] Mean corpuscular hemoglobin determination [facility] Measurement of gluco se 2 hours after glucose challenge for glucose tolerance test [facility] Neutrophil count [facility] Neutrophil count [facility] Neutrophil percent differential count [facility] Neutrophil percent differential count [facility] Patient Education [facility] Work Phone: Patient referral [facility] Work Phone: Platelets [#/volume] in Blood [facility] Platelets [#/volume] in Blood [facility] Red blood cell count [facility] Red blood cell count [facility] Red cell distributio n width determination [facility] Red cell distributio n width determination [facility] Serologic test for syphilis [facility] T4 free measurement [facility] Thyroid stimulating hormone measurement [facility] Thyroperoxidase Ab [Units/volume] in Serum or Plasma [facility] Ultrasound scan for growth [facility] End: 03-01-2021 US 3D RENDERING W/O POST PROCEDURE US 3D RENDERING W/O POST PROCEDURE Imaging Routine Once for 1 Occurrences starting 03/01/2021 until 03/01/2021 [facility] Work Phone: Comment on above: Once for 1 Occurrenc es starting 03/01/2021 until 03/01/2021 US 3D RENDERING W/O POST PROCEDURE US 3D RENDERING W/O POST PROCEDURE Imaging Routine 03/01/2021 9:30 AM EDT [facility] Work Phone: End: 03-01-2021 US NON OB TRANSVAGINAL US NON OB TRANSVAGINAL Imaging Routine Once for 1 Occurrences starting 03/01/2021 until 03/01/2021 [facility] Work Phone: Comment on above: Once for 1 Occurrenc es starting 03/01/2021 until 03/01/2021 US NON OB TRANSVAGINAL US NON OB TRANSVAGINAL Imaging Routine 03/01/2021 9:30 AM EDT [facility] Work Phone: Varicella zoster vir us DNA [Presence] in Unspecified specimen by KEELEY with probe detection [facility] XR Thoracic spine Views [facility] Immunizations Immunization Date Immunization Notes Care Provider Fa [facility] 04-11-2024 influenza, seasonal, injectable, preservative free SHANNAN VAZQUEZ DO Work Phone: [facility] 03-15-2023 influenza, injectabl e, quadrivalent, preservative free Deejay Glasgow PA-C Work Phone: [facility] 03-15-2023 influenza virus vaccine, unspecified formulation Deejay Glasgow PA-C Work Phone: [facility] 11-29-2022 tetanus toxoid, redu alda diphtheria toxoid, and acellular pertussis vaccine, adsorbed Shannan PHELPS Work Phone: [facility] 04-13-2022 influenza, injectabl e, quadrivalent, preservative free DO SHANNAN VAZQUEZ Work Phone: [facility] 04-13-2022 influenza, seasonal, injectable Shannan Vazquez Work Phone: [facility] 04-29-2021 Covid (Moderna) SHANNAN PE TERS DO Work Phone: [facility] 04-12-2021 influenza, injectabl e, quadrivalent, preservative free SHANNAN VAZQUEZ DO Work Phone: [facility] 07-07-2020 Covid (Moderna) SHANNAN PE TERS DO Work Phone: [facility] 06-10-2020 Covid (Moderna) SHANNAN PE TERS DO Work Phone: [facility] 08-22-2018 influenza, injectabl e, quadrivalent, preservative free SHANNAN VAZQUEZ DO Work Phone: [facility] 04-17-2017 influenza, injectabl e, quadrivalent, preservative free Damon Koch [facility] 04-18-2016 tuberculin skin test ; purified protein derivative solution, intradermal; Translations: [Tubersol 5 UNIT/0.1ML Intradermal Solution] Damon Koch [facility] Work Phone: 01-28-2015 varicella virus vaccine MARYI EDY VAZQUEZ DO Work Phone: [facility] 06-01-2014 hepatitis B vaccine, adult dosage SHANNAN VAZQUEZ DO Work Phone: [facility] 02-02-2014 varicella virus vaccine CHRI EDY VAZQUEZ DO Work Phone: [facility] 2014 hepatitis B vaccine, pediatric or pediatric/adolescent dosage SHANNAN VAZQUEZ DO Work Phone: [facility] 2014 tetanus toxoid, redu alda diphtheria toxoid, and acellular pertussis vaccine, adsorbed SHANNAN VAZQUEZ DO Work Phone: [facility] 01-17-2005 measles, mumps and rubella virus vaccine SHANNAN TAYLOR DO Work Phone: [facility] 01-17-2005 TD(adult) unspecifie d formulation SHANNAN VAZQUEZ DO Work Phone: [facility] 09-28-1997 diphtheria, tetanus toxoids and acellular pertussis vaccine SHANNAN VAZQUEZ DO Work Phone: [facility] 09-28-1997 poliovirus vaccine, inactivated SHANNAN VAZQUEZ DO Work Phone: [facility] 08-31-1993 diphtheria, tetanus toxoids and acellular pertussis vaccine SHANNAN VAZQUEZ DO Work Phone: [facility] 08-31-1993 poliovirus vaccine, inactivated SHANNAN VAZQUEZ DO Work Phone: [facility] 05-25-1993 hepatitis B vaccine, pediatric or pediatric/adolescent dosage SHANNAN VAZQUEZ DO Work Phone: [facility] 05-25-1993 measles, mumps and rubella virus vaccine SHANNAN VAZQUEZ DO Work Phone: [facility] 1992 diphtheria, tetanus toxoids and acellular pertussis vaccine SHANNAN VAZQUEZ DO Work Phone: [facility] 1992 haemophilus influenz ae type b vaccine, PRP-T conjugate SHANNAN VAZQUEZ DO Work Phone: [facility] 1992 diphtheria, tetanus toxoids and acellular pertussis vaccine SHANNAN VAZQUEZ DO Work Phone: [facility] 1992 haemophilus influenz ae type b vaccine, PRP-T conjugate SHANNAN VAZQUEZ DO Work Phone: [facility] 1992 poliovirus vaccine, inactivated SHANNAN VAZQUEZ DO Work Phone: [facility] 1992 diphtheria, tetanus toxoids and acellular pertussis vaccine SHANNAN VAZQUEZ DO Work Phone: [facility] 1992 haemophilus influenz ae type b vaccine, PRP-T conjugate SHANNAN VAZQUEZ DO Work Phone: [facility] 1992 poliovirus vaccine, inactivated SHANNAN VAZQUEZ DO Work Phone: [facility] Payers Date Payer Category Payer Self-pay 2022 Private Health Insurance [employer] ALLIED [id number] 2022-Present [address] [place] [address] Commercial [id number] 2022 Unknown [id number] 1992 Unknown [id number] 2.16.840.1.465938.3.579.2. 356 1992 Unknown [id number] 2.16.840.1.556306.3.579.2. 598 1992 Unknown [id number] 2.16.840.1.393917.3.579.2. 479 1992 Unknown [id number] 2.16.840.1.116159.3.579.2. 479 1992 Unknown [id number] 2.16.840.1.804239.3.579.2. 479 1992 Unknown [id number] 2.16.840.1.922503.3.579.2. 479 1992 Unknown [id number] 2.16.840.1.659717.3.579.2. 479 1992 Unknown [id number] 2.16.840.1.666103.3.579.2. 479 1959 Unknown [id number] 1959 Unknown [id number] Unknown [id number] 2.16.840.1.185442.3.579.2. 462 Unknown [id number] 2.16.840.1.972065.3.579.2. 462 Unknown [id number] 2.16.840.1.908955.3.579.2. 462 Unknown [id number] 2.16.840.1.579492.3.579.2. 462 Unknown [id number] 2.16.840.1.747132.3.579.2. 462 Unknown [id number] 2.16.840.1.511071.3.579.2. 462 Unknown [id number] 2.16.840.1.319783.3.579.2. 462 Unknown [id number] 2.16.840.1.695944.3.579.2. 462 Unknown [id number] 2.16840.1.743881.3.579.2. 462 Unknown [id number] 2.16840.1.305536.3.579.2. 462 Unknown [id number] 2.840.1.603450.3.579.2. 462 Unknown [id number] 2.16840.1.245503.3.579.2. 462 Unknown [id number] 2.16840.1.343758.3.579.2. 462 Unknown [id number] 2.16840.1.428074.3.579.2. 462 Unknown [id number] 2.16840.1.332215.3.579.2. 462 Unknown [id number] 2.16840.1.162282.3.579.2. 462 Unknown [id number] 2.16.840.1.296025.3.579.2. 462 Unknown [id number] 2.16.840.1.767917.3.579.2. 462 Unknown [id number] 2.16.840.1.707604.3.579.2. 462 Unknown [id number] 2.16.840.1.453974.3.579.2. 462 Unknown [id number] 2.16840.1.168594.3.579.2. 462 Unknown [id number] 2.16.840.1.400826.3.579.2. 462 Unknown [id number] 2.16.840.1.599681.3.579.2. 462 Unknown [id number] 2.16.840.1.328132.3.579.2. 462 Unknown [id number] 2.16.840.1.766967.3.579.2. 462 Unknown [id number] 2.16.840.1.761349.3.579.2. 462 Unknown [id number] 2.16.840.1.835688.3.579.2. 462 Unknown [id number] 2.16.840.1.548268.3.579.2. 462 Social History Date Type Detail Facility Start: 01-31-2021 End: 11-25-2024 Tobacco smoking status NHIS Never smoker [facility] Start: 12-16-2020 End: 01-31-2021 Tobacco use and exposure Never used [facility] Start: 01-31-2021 End: 05-30-2022 Alcohol intake Current drinker of alcohol (finding) [facility] Work Phone: Start: 1990 Sex Assigned At Not on file [facility] Work Phone: Exposure to SARS-CoV-2 (event) Not sure [facility] Start: 05-19-2021 History SDOH Alcohol Comment monthly [facility] Work Phone: Start: 1990 Sex Assigned At Female [facility] Start: 07-11-2022 End: 03-16-2023 Tobacco smoking status NHIS Unknown if ever smoked [facility] Start: 05-30-2022 History of Social function [facility] Start: 05-30-2022 [facility] Start: 10-06-2024 Sex Female (finding) [facility] NEGATED: Highlighted row - - - [facility] Work Phone: NEGATED: Highlighted row Ramirez ster [facility] Goals Date Patient Goal Desired Activity /State Functional Status Date Assessment Result Facility 09-18-2023 Functional status Chair [facility] Work Phone: NEGATED: Highlighted row Functional performance Functional status health issues are not documented Disease [facility] Work Phone: Mental Status Date Assessment Result Facility 02-26-2023 Cognitive function Patient Behav ior Anxious [facility] Work Phone: 02-25-2023 Cognitive function Level Of Cons ciousness Awake;Drowsy [facility] Work Phone: NEGATED: Highlighted row Cognitive function [Interpretation] Cognitive status health issues are not documented Disease [facility] Work Phone: Clinical Notes 12-16-2020 to 03-05-2025 Note Date & Type Note Facility 03-05-2025 Progress note [facility] 03-05-2025 Progress note Note Date/Time March 05, 2025 3:41pm [facility] [address], [address] [place] [address] OFFICE VISIT Date of Service: 03/05/25 MR#: [id number] Acct: [id number] Name: KATIE ROBB Rep #: [id number] : 1990 Provider: LIUDMILA Armstrong Age/Sex: 35/F Location: [facility] Status: Signed Intake Vital Signs 01/06/25 14:11 02/19/25 15:12 03/05/25 15:08 03/05/25 15:15 Height 5 ft 7 in 5 ft 7 in 5 ft 7 in 5 ft 7 in Weight: 212 lb BMI 33.2 BP 111/72 Intake Visit Reasons: 30wk ob [employer] Required: No Is patient in pain?: No Allergies No Known Allergies Allergy (Verified 03/05/25 15:08) Medications ?Medication ?Instructions ?Recorded ?Confirmed ?Type PNV no.63-iron,carbonyl 27 1 cap PO QDAY 10/02/2402/10 History mg-folic acid 800 mcg-dha 200 mg capsule vancomycin 250 mg capsule 250 mg PO Q8 #21 caps 03/05/25 Rx Last Menstrual Period: 05/03/22 Zika: Zika virus screening: Negative : Yes Have you fallen in the past year?: No PFSH PFSH Medical History Segmental and somatic dysfunction [...] 3-4 times per week duration: 30-45 minutes/day diego/druze: None seatbelt use: always do you feel [...] 39 live - full term 9lbs Female [facility] Brent Zee HPI 30wk ob Details: KATIE ROBB is a 35 year old who presents for routine OB visit. OB Visit TETO Calculator Estimated Delivery Date Method Current WG Current Estimate 05/13/25 Conception 30w 1d Other Estimates 05/20/25 Ultrasound #1 29w 1d Expected Delivery Route/Plan Labor Preferences- CB/BF classes: no labor support person: Yayo labor intervention preferences: [] pain management options preferred: open to what she requests cut cord/dad catch: yes : yes PP control planned: discussed discussed possible routes of delivery and associated risks: [] special requests: [] Specific Issue/Plans Covid status: [] Flu vaccine: [] Tdap vaccine: [] Rhogam: NA LARC form signed: yes Problem list reviewed and updated with the most current plan of care details and appropriate orders placed. Relevant counseling for the gestational age provided. Continue routine care and follow up unless otherwise noted in visit notes/problem list details Initial Weight: 193 lb Date -?-?-?-?-?-?-?-?-?-?-?-?- EGA Weight BP Urine Prot -?-?-?-?-?-?-?-?-?-?-?-?- Glucose FHR FuHt Pres Dilation -?-?-?-?-?-?-?-?-?-?-?-?- Effaced St Visit Note 10/07/24 -?-?-?-?-?-?-?-?-?-?-?-?- 8w 6d 193 lb 8 oz (+8 oz) 121/84 -?-?-?-?-?-?-?-?-?-?-?-?- 173 -?-?-?-?-?-?-?-?-?-?-?-?- KW- CRL cons [facility] hospital US. 7 days behind IVF implantation and US dating. accepts NIPT. had heavy bleeding over the weekend with clots. KW- CRL cons with hospital U S. 7 days behind IVF implantation and US dating. accepts NIPT. had heavy bleeding over the weekend with clots. RTO in 2 weeks 10/21/24 -?-?-?-?-?-?-?-?-?-?--?-?- 10w 6d 195 lb 2 oz (+2 lb 2 oz) 115/79 Negative -?-?-?-?-?-?-?-?-?-?-?-?- Negative 150 -?-?-?-?-?-?-?-?-?-?-?-?- SM- no vb crampi ng SM- no vb cramping 4mm subch orionic hematoma resolving 11/04/24 -?-?-?-?-?-?-?-?-?-?-?-?- 12w 6d 196 lb 4 oz (+3 lb 4 oz) 117/81 Negative -?-?-?-?-?-?-?-?-?-?-?-?- Negative 150 -?-?-?-?-?-?-?-?-?-?-?-?- KW- some bleedin g one day last week x 1 episode- but stopped. none since. Vit B6 and Unisom and Zofran for nausea. US with hospital. 12/05/24 -?-?-?-?-?-?-?-?-?-?-?-?- 17w 2d 195 lb 4 oz (+2 lb 4 oz) 116/82 Negative -?-?-?-?-?-?-?-?-?-?-?-?- Negative 140 -?-?-?-?-?-?-?-?-?-?-?-?- LC- no vb/ctx. f eeling flutters. anatomy scheduled. 12/25/24 -?-?-?--?-?-?-?-?-?-?-?-?- 20w 1d -?-?-?-?-?-?-?-?-?-?-?-?- -?-?-?-?-?-?-?-?-?-?-?-?- Triage evaluatio n for position due to concerns from radiology- MRI performed and normal. 01/06/25 -?-?-?-?-?-?-?-?-?-?-?-?- 21w 6d 203 lb 2 oz (+10 lb 2 oz) 111/75 Negative -?-?-?-?-?-?-?-?-?-?-?-?- Negative 143 -?-?-?-?-?-?-?-?-?-?-?-?- JV- succent. lob e on ultrasound with velamentous insertion of the side and the connecting vessels. has monthly growth scans, echo scheduled. wants CMV testing next glucose test. 01/29/25 -?-?-?-?-?-?-?-?-?-?-?-?- 25w 1d 206 lb 3 oz (+13 lb 3 oz) 121/81 Negative -?-?-?-?-?-?-?-?-?-?-?-?- Negative 140 -?-?-?-?-?-?-?-?-?-?-?-?- SM- no vb lof go od fm no regular ctx 02/19/25 -?-?-?-?-?-?-?-?-?-?-?-?- 28w 1d 212 lb 8 oz (+19 lb 8 oz) 105/73 Negative -?-?-?-?-?-?-?-?-?-?-?-?- Negative 142 28 -?-?-?-?-?-?-?-?-?-?-?-?- MH-No VB, LOF. G ood Fm. 28 wk labs pending. Larc 03/05/25 -?-?-?-?-?-?-?-?-?-?-?-?- 30w 1d 212 lb (+19 lb) 111/72 -?-?-?-?-?-?-?-?--?-?-?-?- 135 30 -?-?-?-?-?-?-?-?-?-?-?-?- KW- no vb/lof/ct x. good fm. no concerns today ACOG First Trimester First Trimester: Desire for , Alcohol, Tobacco Cessation, Illicit/Recreational Drug/Substance Use, Intimate Partner Violence, Barriers to care, Unstable Housing, Communication Barriers, Environmental/Work Hazards, Anticipated Course of Care, Toxoplasmosis Precations, Use of Any medications, Sexual activity, Exercise, Dental Care, Sauna/Hot tub use, Seat Belt use, Childbirth classes/Hospital facilities, , Travel, Indications for Ultrasound and Screening for Aneuploidy Second Trimester Second Trimester: Signs and Symptoms of Labor, Selecting a care provider, Reproductive Life Planning & Contreception, Care Planning, Depression/Anxiety and Intimate Partner Violence; Discussed Tobacco Cessation Third Trimester Third Trimester: Pain Management Plans, Labor support person(s), Immediate Larc, Movement Monitoring, Signs and Symptoms of Preeclampsia, Feeding Yes , Education and Family Medical Leave or Disability Forms ROS Const Reports system reviewed and no [...] normal Thought Content: normal Judgment: judgment good Coding Level of Care Code OB Routine Diagnoses 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; Z20.828 Placenta succenturiata in third trimester O43.193 Trimester: third trimester Dysuria R30.0 Abnormal ultrasound O28.3 Segmental and somatic dysfunction of pelvic region M99.05 Segmental dysfunction of lumbar region M99.03 Segmental dysfunction of thoracic region M99.02 Segmental and somatic dysfunction of lumbar region M99.03 Supervision of high risk in third trimester O09.93 Trimester: third trimester 30 weeks gestation of Z3A.30 Weeks of gestation: 30 weeks Infertility History of hemorrhage, currently O09.299 Conceived by in vitro fertilization Z78.9 Assessment and Plan Assessment and Plan (1) 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 : Status: Acute Comment: negative labs (2) Placenta succenturiata: Status: Acute Qualifiers: Trimester: third trimester Qualified Code(s): O43.193 - Other malformation of placenta, third trimester Comment: velamentous cord insertion. Growth US Q4wk. either BPP with MFM or NST weekly with us at 36 wk. (3) Dysuria: Status: Acute (4) Abnormal ultrasound: Status: Acute Comment: MRI confirmed intrauterine with one normal placenta. (5) Segmental and somatic dysfunction of pelvic region: Status: Acute (6) Segmental dysfunction of lumbar region: Status: Acute (7) Segmental dysfunction of thoracic region: Status: Acute (8) Segmental and somatic dysfunction of lumbar region: Status: Acute (9) Supervision of high-risk : Status: Acute Qualifiers: Trimester: third trimester Qualified Code(s): O09.93 - Supervision of high risk , unspecified, third trimester Comment: PRR , TETO 05/13/25 boy PC Angelito Yayo (10) : Status: Acute Qualifiers: Weeks of gestation: 30 weeks Qualified Code(s): Z3A.30 - 30 weeks gestation of Comment: NIPT low risk, carrier declined. echo(IVF ) and growth US Q4wk. (11) Infertility: Status: Acute Comment: IVF transfer 08/26/24 (12) History of hemorrhage, currently : Status: Acute Comment: retained products of conception 3wk PP s/p suction D and C (13) Conceived by in vitro fertilization: Status: Acute Comment: transfer 08/26/24, plan echo at 22-24 weeks Orders: Orders POC Urinalysis 2 Dip (Clinic) Today Plan Details Additional Comments: ACOG trimester education reviewed and updated. see problem list details for updated plan management information and see below for orders placed at this visit. GA appropriate handout given. Goals & Barriers: Goals Decrease spasm Decrease pain Improve workability Improve posture Clinical Quality Measures Falls Risk Screening/Assistive Devices Have you fallen in the past year?: No 03/05/25 1541 <Electronically signed by Niya callejas CNM> Date _ Niya Armstrong CNM [facility] Signature: Date (if applicable) CC: ~ [facility] Work Phone: 1(478) 463-541108-21-2025 Progress [facility] [address] [place] [address], [address] [place] [phone] OFFICE VISIT Date of Service: 01/29/25 MR#: [id number] Acct: [id number] Name: KATIE ROBB Rep #: [id number] : 1990 Provider: Dr. Robert Gomez MD Age/Sex: 35/F [place] [facility] [place]: Signed Intake Vital Signs 12/05/24 11:44 01/06/25 14:11 01/29/25 15:18 Height 5 ft 7 in 5 ft 7 in 5 ft 7 in Weight: 206 lb 206 lb 3 oz BMI 32.2 32.3 BP 121/81 H Intake Visit Reasons: 25wk ob [employer] Required: No Is patient in pain?: No Allergies No Known Allergies Allergy (Verified 01/29/25 15:18) Medications ?Medication ?Instructions ?Recorded ?Confirmed ?Type PNV no.63-iron,carbonyl 27mg-folic 1 cap PO QDAY 10/0201/29/25 History acid 800 mcg-dha 200 mg capsule vancomycin 250 mg capsule 250 mg PO Q8 #21 caps 01/29/25 Rx Last Menstrual Period: 05/03/22 Zika: Zika virus screening: Negative : No PFSH PFSH Medical History Segmental and somatic dysfunction [...] 3-4 times per week duration: 30-45 minutes/day diego/druze: None seatbelt use: always do you feel [...] 39 live - full term 9lbs Female [facility] Brent Zee HPI 25wk ob Details: KATIE ROBB is a 35 year old who presents for routine OB visit. OB Visit TETO Calculator Estimated Delivery Date Method Current WG Current Estimate 05/13/25 Conception 25w 1d Other Estimates 05/20/25 Ultrasound #1 24w 1d Expected Delivery Route/Plan Labor Preferences- CB/BF classes: [...] Prot -?-?-?-?-?-?-?-?-?-?-?-?- Glucose FHR FuHt Pres Dilation -?-?-?-?-?-?-?-?-?-?-?-?- Effaced St Visit Note 10/07/24 -?-?-?-?-?-?-?-?-?-?-?-?- 8w 6d 193 lb 8 oz (+8 oz) 121/84 -?-?-?-?-?-?-?-?-?-?-?-?- 173 -?-?-?-?-?-?-?-?-?-?-?-?- KW- CRL cons [facility] hospital US. 7 days behind IVF implantation and US dating. accepts NIPT. had heavy bleeding over the weekend with clots. KW- CRL cons with hospital S. 7 days behind IVF implantation and US dating. accepts NIPT. had heavy bleeding over the weekend with clots. RTO in 2 weeks 10/21/24 -?-?-?-?-?-?-?-?-?-?-?-?- 10w 6d 195 lb 2 oz (+2 lb 2 oz) 115/79 Negative -?-?-?-?-?-?-?-?-?-?-?-?- Negative 150 -?-?-?-?-?-?-?-?-?-?-?-?- SM- no vb crampi ng SM- no vb cramping 4mm subch orionic hematoma resolving 11/04/24 -?-?-?-?-?-?-?-?-?-?-?-?- 12w 6d 196 lb 4 oz (+3 lb 4 oz) 117/81 Negative -?-?-?-?-?-?-?-?-?-?-?-?- Negative 150 -?-?-?-?-?-?-?-?-?-?-?-?- KW- some bleedin g one day last week x 1 episode- but stopped. none since. Vit B6 and Unisom and Zofran for nausea. US with hospital. 12/05/24 -?-?-?-?-?-?-?-?-?-?-?-?- 17w 2d 195 lb 4 oz (+2 lb 4 oz) 116/82 Negative -?-?-?-?-?-?-?-?-?-?-?-?- Negative 140 -?-?-?-?-?-?-?-?-?-?-?-?- LC- no vb/ctx. f eeling flutters. anatomy scheduled. 12/25/24 -?-?-?-?-?-?-?-?-?-?-?-?- 20w 1d -?-?-?-?-?-?-?-?-?-?-?-?- -?-?-?-?-?-?-?-?-?-?-?-?- Triage evaluatio n for position due to concerns from radiology- MRI performed and normal. 01/06/25 -?-?-?-?-?-?-?-?-?-?-?-?- 21w 6d 203 lb 2 oz (+10 lb 2 oz) 111/75 Negative -?-?-?-?-?-?-?-?-?-?-?-?- Negative 143 -?-?-?-?-?-?-?-?-?-?-?-?- JV- succent. lob e on ultrasound with velamentous insertion of the side and the connecting vessels. has monthly growth scans, echo scheduled. wants CMV testing next glucose test. 01/29/25 -?-?-?-?-?-?-?-?-?-?-?-?- 25w 1d 206 lb 3 oz (+13 lb 3 oz) 121/81 Negative -?-?-?-?-?-?-?-?-?-?-?-?- Negative 140 -?-?-?-?-?-?-?-?-?-?-?-?- SM- no vb lof go od fm no regular ctx ACOG First Trimester First Trimester: Desire for [...] Negative Last Edit by Julia Jackson on 01/29/25 15:39 Office Urine Protein Negative Last Edit by Julia Jackson on 01/29/25 15:39 Coding Level of Care Code OB Routine Diagnoses Placenta succenturiata O43.199 Dysuria R30.0 Abnormal ultrasound O28.3 Segmental and somatic dysfunction of pelvic region M99.05 Segmental dysfunction of lumbar region M99.03 Segmental dysfunction of thoracic region M99.02 Segmental and somatic dysfunction of lumbar region M99.03 Supervision of high-risk O09.90 25 weeks gestation of Z3A.25 Weeks of gestation: 25 weeks Infertility History of hemorrhage, currently O09.299 Conceived by in vitro fertilization Z78.9 Assessment and Plan Assessment and Plan (1) Placenta succenturiata: Status: Acute Comment: velamentous cord insertion. Growth US Q4wk (2) Dysuria: Status: Acute (3) Abnormal ultrasound: Status: Acute Comment: MRI confirmed intrauterine with one normal placenta. (4) Segmental and somatic dysfunction of pelvic region: Status: Acute (5) Segmental dysfunction of lumbar region: Status: Acute (6) Segmental dysfunction of thoracic region: Status: Acute (7) Segmental and somatic dysfunction of lumbar region: Status: Acute (8) Supervision of high-risk : Status: Acute Comment: PRR , TETO 05/13/25 boy PC Angelito Yayo (9) : Status: Acute Qualifiers: Weeks of gestation: 25 weeks Qualified Code(s): Z3A.25 - 25 weeks gestation of Comment: NIPT low risk, carrier declined. echo(IVF ) and growth US Q4wk. (10) Infertility: Status: Acute Comment: IVF transfer 08/26/24 (11) History of hemorrhage, currently : Status: Acute Comment: retained products of conception 3wk PP s/p suction D and C (12) Conceived by in vitro fertilization: Status: Acute Comment: transfer 08/26/24, plan echo at 22-24 weeks Orders: Orders POC Urinalysis 2 Dip (Clinic) Today Plan Details Goals & Barriers: Goals Decrease spasm Decrease pain Improve workability Improve posture 01/29/25 1549 zenaida HELTON> Date _ Nat Gomez MD Cosigner Signature: Date (if applicable) CC: ~ [facility]08-21-2025 Progress note Author Nat Gomez [facility] Note Date/Time January 29, 2025 3: 49pm [facility] [address] [place] [address], [address] [place] [address] OFFICE VISIT Date of Service: 01/29/25 MR#: [id number] Acct: [id number] Name: KATIE ROBB Rep #: [id number] : 1990 Provider: Dr. Robert Gomez MD Age/Sex: 35/F [place] [facility] [place] Status: Signed Intake Vital Signs 12/05/24 11:44 01/06/25 14:11 01/29/25 15:18 Height 5 ft 7 in 5 ft 7 in 5 ft 7 in Weight: 206 lb 206 lb 3 oz BMI 32.2 32.3 BP 121/81 H Intake Visit Reasons: 25wk ob [employer] Required: No Is patient in pain?: No Allergies No Known Allergies Allergy (Verified 01/29/25 15:18) Medications ?Medication ?Instructions ?Recorded ?Confirmed ?Type PNV no.63-iron,carbonyl 27mg-folic 1 cap PO QDAY 10/0201/29/25 History acid 800 mcg-dha 200 mg capsule vancomycin 250 mg capsule 250 mg PO Q8 #21 caps 01/29/25 Rx Last Menstrual Period: 05/03/22 Zika: Zika virus screening: Negative : No PFSH PFSH Medical History Segmental and somatic dysfunction [...] 3-4 times per week duration: 30-45 minutes/day diego/druze: None seatbelt use: always do you feel [...] 39 live - full term 9lbs Female [facility] Brent Nathaniel Zee HPI 25wk ob Details: KATIE ROBB is a 35 year old who presents for routine OB visit. OB Visit TETO Calculator Estimated Delivery Date Method Current WG Current Estimate 05/13/25 Conception 25w 1d Other Estimates 05/20/25 Ultrasound #1 24w 1d Expected Delivery Route/Plan Labor Preferences- CB/BF classes: [...] Prot -?-?-?-?-?-?-?-?-?-?-?-?- Glucose FHR FuHt Pres Dilation -?-?-?-?-?-?-?-?-?-?-?-?- Effaced St Visit Note 10/07/24 -?-?-?-?-?-?-?-?-?-?-?-?- 8w [...] oz (+2 lb 2 oz) 115/79 Negative -?-?-?-?-?-?-?-?-?-?-?-?- Negative 150 -?-?-?-?-?-?-?-?-?-?-?-?- SM- no vb crampi ng SM- no vb cramping 4mm subch orionic hematoma resolving 11/04/24 -?-?-?-?-?-?-?-?-?-?-?-?- 12w 6d 196 lb 4 oz (+3 lb 4 oz) 117/81 Negative -?-?-?-?-?-?-?-?-?-?-?-?- Negative 150 -?-?-?-?-?-?-?-?-?-?-?-?- KW- some bleedin g one day last week x 1 episode- but stopped. none since. Vit B6 and Unisom and Zofran for nausea. US with hospital. 12/05/24 -?-?-?-?-?-?-?-?-?-?-?-?- 17w 2d 195 lb 4 oz (+2 lb 4 oz) 116/82 Negative -?-?-?-?-?-?-?-?-?-?-?-?- Negative 140 -?-?-?-?-?-?-?-?-?-?-?-?- LC- no vb/ctx. f eeling flutters. anatomy scheduled. 12/25/24 -?-?-?-?-?-?-?-?-?-?-?-?- 20w 1d -?-?-?-?-?-?-?-?-?-?-?-?- -?-?-?-?-?-?-?-?-?-?-?-?- Triage evaluatio n for position due to concerns from radiology- MRI performed and normal. 01/06/25 -?-?-?-?-?-?-?-?-?-?-?-?- 21w 6d 203 lb 2 oz (+10 lb 2 oz) 111/75 Negative -?-?-?-?-?-?-?-?-?-?-?-?- Negative 143 -?-?-?-?-?-?-?-?-?-?-?-?- JV- succent. lob e on ultrasound with velamentous insertion of the side and the connecting vessels. has monthly growth scans, echo scheduled. wants CMV testing next glucose test. 01/29/25 -?-?-?-?-?-?-?-?-?-?-?-?- w 1d 206 lb 3 oz (+13 lb 3 oz) 121/81 Negative -?-?-?-?-?-?-?-?-?-?-?-?- Negative 140 -?-?-?-?-?-?-?-?-?-?-?-?- SM- no vb lof go od fm no regular ctx ACOG First Trimester First Trimester: Desire for [...] Monitoring, Signs and Symptoms of Preeclampsia and [place] Education Results POC Urinalysis 2 Dip (Clinic) Office Urine Glucose Negative Last Edit by Julia Jackson on 01/29/25 15:39 Office Urine Protein Negative Last Edit by Julia Jackson on 01/29/25 15:39 Coding Level of Care Code OB Routine Diagnoses Placenta succenturiata O43.199 Dysuria R30.0 Abnormal ultrasound O28.3 Segmental and somatic dysfunction of pelvic region M99.05 Segmental dysfunction of lumbar region M99.03 Segmental dysfunction of thoracic region M99.02 Segmental and somatic dysfunction of lumbar region M99.03 Supervision of high-risk O09.90 25 weeks gestation of Z3A.25 Weeks of gestation: 25 weeks Infertility History of hemorrhage, currently O09.299 Conceived by in vitro fertilization Z78.9 Assessment and Plan Assessment and Plan (1) Placenta succenturiata: Status: Acute Comment: velamentous cord insertion. Growth US Q4wk (2) Dysuria: Status: Acute (3) Abnormal ultrasound: Status: Acute Comment: MRI confirmed intrauterine with one normal placenta. (4) Segmental and somatic dysfunction of pelvic region: Status: Acute (5) Segmental dysfunction of lumbar region: Status: Acute (6) Segmental dysfunction of thoracic region: Status: Acute (7) Segmental and somatic dysfunction of lumbar region: Status: Acute (8) Supervision of high-risk : Status: Acute Comment: PRR , TETO 05/13/25 boy PC Angelito Yayo (9) : Status: Acute Qualifiers: Weeks of gestation: 25 weeks Qualified Code(s): Z3A.25 - 25 weeks gestation of Comment: NIPT low risk, carrier declined. echo(IVF ) and growth US Q4wk. (10) Infertility: Status: Acute Comment: IVF transfer 08/26/24 (11) History of hemorrhage, currently : Status: Acute Comment: retained products of conception 3wk PP s/p suction D and C (12) Conceived by in vitro fertilization: Status: Acute Comment: transfer 08/26/24, plan echo at 22-24 weeks Orders: Orders POC Urinalysis 2 Dip (Clinic) Today Plan Details Goals & Barriers: Goals Decrease spasm Decrease pain Improve workability Improve posture 01/29/25 7486 <Electronically signed by Nat estevez MD> Date _ Nat Gomez MD [facility] Signature: Date (if applicable) CC: ~ [facility] Work Phone: 1(752) 649-298307-29-2025 Progress [facility] [address], [address] [place] [address] OFFICE VISIT Date of Service: 01/06/25 MR#: [id number] Acct: [id number] Name: KATIE ROBB Rep #: [id number] : 1990 Provider: Dr. Jacey Weeks DO Age/Sex: 34/F Location[place] [facility] Status: Signed Intake Vital Signs 12/05/24 11:44 01/01/25 08:29 01/06/25 14:09 01/06/25 14:11 Height 5 ft 7 in 5 ft 7 in 5 ft 7 in 5 ft 7 in Weight: 203 lb 2 oz BMI 31.8 BP 111/75 Intake Visit Reasons: 22wk ob *nancy from 12/31 [employer] Required: No Is patient in pain?: No Allergies No Known Allergies Allergy (Verified 01/06/25 14:09) Medications ?Medication ?Instructions ?Recorded ?Confirmed ?Type PNV no.63-iron,carbonyl 27mg-folic 1 cap PO QDAY 10/0201/06/25 History acid 800 mcg-dha 200 mg capsule vancomycin 250 mg capsule 250 mg PO Q8 #21 caps 01/06/25 Rx Last Menstrual Period: 05/03/22 Zika: Zika virus screening: Negative : No PFSH PFSH Medical History Segmental and somatic dysfunction [...] 3-4 times per week duration: 30-45 minutes/day diego/druze: None seatbelt use: always do you feel [...] 39 live - full term 9lbs Female [facility] Brent Zee HPI 22wk ob *nancy from 12/31 Details: KATIE ROBB is a 34 year old who presents for routine OB visit. OB Visit TETO Calculator Estimated Delivery Date Method Current WG Current Estimate 05/13/25 Conception 21w 6d Other Estimates 05/20/25 Ultrasound #1 20w 6d Expected Delivery Route/Plan Labor Preferences- CB/BF [...] Prot -?-?-?-?-?-?-?-?-?-?-?-?- Glucose FHR FuHt Pres Dilation -?-?-?-?-?-?-?-?-?-?-?-?- Effaced St Visit Note 10/07/24 -?-?-?-?-?-?-?-?-?-?-?-?- 8w 6d 193 lb 8 oz (+8 oz) 121/84 -?-?-?-?-?-?-?-?-?-?-?-?- 173 -?-?-?-?-?-?-?-?-?-?-?-?- KW- CRL cons [facility] hospital US. 7 days behind IVF implantation and US dating. accepts NIPT. had heavy bleeding over the weekend with clots. KW- CRL cons with hospital S. 7 days behind IVF implantation and US dating. accepts NIPT. had heavy bleeding over the weekend with clots. RTO in 2 weeks 10/21/24 -?-?-?-?-?-?-?-?-?-?-?-?- 10w 6d 195 lb 2 oz (+2 lb 2 oz) 115/79 Negative -?-?-?-?-?-?-?-?-?-?-?-?- Negative 150 -?-?-?-?-?-?-?-?-?-?-?-?- SM- no vb crampi ng SM- no vb cramping 4mm subch orionic hematoma resolving 11/04/24 -?-?-?-?-?-?-?-?-?-?-?-?- 12w 6d 196 lb 4 oz (+3 lb 4 oz) 117/81 Negative -?-?-?-?-?-?-?-?-?-?-?-?- Negative 150 -?-?-?-?-?-?-?-?-?-?-?-?- KW- some bleedin g one day last week x 1 episode- but stopped. none since. Vit B6 and Unisom and Zofran for nausea. US with hospital. 12/05/24 -?-?-?-?-?-?-?-?-?-?-?-?- 17w 2d 195 lb 4 oz (+2 lb 4 oz) 116/82 Negative -?-?-?-?-?-?-?-?-?-?-?-?- Negative 140 -?-?-?-?-?-?-?-?-?-?-?-?- LC- no vb/ctx. f eeling flutters. anatomy scheduled. 12/25/24 -?-?-?-?-?-?-?-?-?-?-?-?- 20w 1d -?-?-?-?-?-?-?-?-?-?-?-?- -?-?-?-?-?-?-?-?-?-?-?-?- Triage evaluatio n for position due to concerns from radiology- MRI performed and normal. 01/06/25 -?-?--?-?-?-?-?-?-?-?-?-?- 21w 6d 203 lb 2 oz (+10 lb 2 oz) 111/75 -?-?-?-?-?-?-?-?-?-?-?-?- 143 -?-?-?-?-?-?-?-?-?-?-?-?- JV- succent. lob e on ultrasound with velamentous insertion of the side and the connecting vessels. has monthly growth scans, echo scheduled. wants CMV testing next glucose test. ACOG First Trimester First Trimester: Desire for [...] Signs and Symptoms of Preeclampsia and Education Coding Level of Care Code OB Routine Diagnoses Placenta succenturiata O43.199 Dysuria R30.0 Abnormal ultrasound O28.3 Supervision of high-risk O09.90 21 weeks gestation of Z3A.21 Weeks of gestation: 21 weeks Infertility History of hemorrhage, currently O09.299 Conceived by in vitro fertilization Z78.9 Assessment and Plan Assessment and Plan (1) Placenta succenturiata: Status: Acute Comment: velamentous cord insertion. Growth US Q4wk (2) Dysuria: Status: Acute (3) Abnormal ultrasound: Status: Acute Comment: MRI confirmed intrauterine with one normal placenta. (4) Supervision of high-risk : Status: Acute Comment: , TETO 05/13/25 PC Angelito Wallace Yayo (5) : Status: Acute Qualifiers: Weeks of gestation: 21 weeks Qualified Code(s): Z3A.21 - 21 weeks gestation of Comment: NIPT low risk, carrier declined. echo(IVF ) and growth US Q4wk. (6) Infertility: Status: Acute Comment: IVF transfer 08/26/24 (7) History of hemorrhage, currently : Status: Acute Comment: retained products of conception 3wk PP s/p suction D and C (8) Conceived by in vitro fertilization: Status: Acute Comment: transfer 08/26/24, plan echo at 22-24 weeks Orders: Orders POC Urinalysis 2 Dip (Clinic) Today CBC W/Diff, Automated Today O09.90 - Supervision of high risk , unspecified, unspecified trimester Glucose Challenge Gest 1H 50g Today O09.90 - Supervision of high risk , unspecified, unspecified trimester, Z13.1 - Encounter for screening for diabetes mellitus HIV Today O09.90 - Supervision of high risk , unspecified, unspecified trimester Syphilis Antibodies Today O09.90 - Supervision of high risk , unspecified, unspecified trimester Plan Details Goals & Barriers: Goals Decrease spasm Decrease pain Improve workability Improve posture 01/06/25 1454 e Shanika DO> Date _ Paola Weeks DO Cosigner Signature: Date (if applicable) CC: ~ [facility]07-29-2025 Progress note Author Paola Voss [facility] Note Date/Time January 06, 2025 2:54 pm [facility] [address] [place] [address], [facility] [address] [place] [address] OFFICE VISIT Date of Service: 01/06/25 MR#: [id number] Acct: [id number] Name: KATIE ROBB Rep #: [id number] : 1990 Provider: Dr. Jacey Weeks DO Age/Sex: 34/F Location: [facility] Status: Signed Intake Vital Signs 12/05/24 11:44 01/01/25 08:29 01/06/25 14:09 01/06/25 14:11 Height 5 ft 7 in 5 ft 7 in 5 ft 7 in 5 ft 7 in Weight: 203 lb 2 oz BMI 31.8 BP 111/75 Intake Visit Reasons: 22wk ob *nancy from 12/31 [employer] Required: No Is patient in pain?: No Allergies No Known Allergies Allergy (Verified 01/06/25 14:09) Medications ?Medication ?Instructions ?Recorded ?Confirmed ?Type PNV no.63-iron,carbonyl 27mg-folic 1 cap PO QDAY 10/0201/06/25 History acid 800 mcg-dha 200 mg capsule vancomycin 250 mg capsule 250 mg PO Q8 #21 caps 01/06/25 Rx Last Menstrual Period: 05/03/22 Zika: Zika virus screening: Negative : No PFSH PFSH Medical History Segmental and somatic dysfunction [...] 3-4 times per week duration: 30-45 minutes/day diego/druze: None seatbelt use: always do you feel [...] 39 live - full term 9lbs Female [facility] Brent Zee HPI 22wk ob *nancy from 12/31 Details: KATIE ROBB is a 34 year old who presents for routine OB visit. OB Visit TETO Calculator Estimated Delivery Date Method Current WG Current Estimate 05/13/25 Conception 21w 6d Other Estimates 05/20/25 Ultrasound #1 20w 6d Expected Delivery Route/Plan Labor Preferences- CB/BF [...] Prot -?-?-?-?-?-?-?-?-?-?-?-?- Glucose FHR FuHt Pres Dilation -?-?-?-?-?-?-?-?-?-?-?-?- Effaced St Visit Note 10/07/24 -?-?-?-?-?-?-?-?-?-?-?-?- 8w 6d 193 lb 8 oz (+8 oz) 121/84 -?-?-?-?-?-?-?-?-?-?-?-?- 173 -?-?-?-?-?-?-?-?-?-?-?-?- KW- CRL cons [facility] US. 7 days behind IVF [...] oz (+2 lb 2 oz) 115/79 Negative -?-?-?-?-?-?-?-?-?-?-?-?- Negative 150 -?-?-?-?-?-?-?-?-?-?-?-?- SM- no vb crampi ng SM- no vb cramping 4mm subch orionic hematoma resolving 11/04/24 -?-?-?-?-?-?-?-?-?-?-?-?- 12w 6d 196 lb 4 oz (+3 lb 4 oz) 117/81 Negative -?-?-?-?-?-?-?-?-?-?-?-?- Negative 150 -?-?-?-?-?-?-?-?-?-?-?-?- KW- some bleedin g one day last week x 1 episode- but stopped. none since. Vit B6 and Unisom and Zofran for nausea. US with hospital. 12/05/24 -?-?-?-?-?-?-?-?-?-?-?-?- 17w 2d 195 lb 4 oz (+2 lb 4 oz) 116/82 Negative -?-?-?-?-?-?-?-?-?-?-?-?- Negative 140 -?-?-?-?-?-?-?-?-?-?-?-?- LC- no vb/ctx. f eeling flutters. anatomy scheduled. 12/25/24 -?-?-?-?-?-?-?-?-?-?-?-?- 20w 1d -?-?-?-?-?-?-?-?-?-?-?-?- -?-?-?-?-?-?-?-?-?-?-?-?- Triage evaluatio n for position due to concerns from radiology- MRI performed and normal. 01/06/25 -?-?--?-?-?-?-?-?-?-?-?-?- 21w 6d 203 lb 2 oz (+10 lb 2 oz) 111/75 -?-?-?-?-?-?-?-?-?-?-?-?- 143 -?-?-?-?-?-?-?-?-?-?-?-?- JV- succent. lob e on ultrasound with velamentous insertion of the side and the connecting vessels. has monthly growth scans, echo scheduled. wants CMV testing next glucose test. ACOG First Trimester First Trimester: Desire for [...] Monitoring, Signs and Symptoms of Preeclampsia and [place] Education Coding Level of Care Code OB Routine Diagnoses Placenta succenturiata O43.199 Dysuria R30.0 Abnormal ultrasound O28.3 Supervision of high-risk O09.90 21 weeks gestation of Z3A.21 Weeks of gestation: 21 weeks Infertility History of hemorrhage, currently O09.299 Conceived by in vitro fertilization Z78.9 Assessment and Plan Assessment and Plan (1) Placenta succenturiata: Status: Acute Comment: velamentous cord insertion. Growth US Q4wk (2) Dysuria: Status: Acute (3) Abnormal ultrasound: Status: Acute Comment: MRI confirmed intrauterine with one normal placenta. (4) Supervision of high-risk : Status: Acute Comment: , TETO 05/13/25 PC Angelito Yayo (5) : Status: Acute Qualifiers: Weeks of gestation: 21 weeks Qualified Code(s): Z3A.21 - 21 weeks gestation of Comment: NIPT low risk, carrier declined. echo(IVF ) and growth US Q4wk. (6) Infertility: Status: Acute Comment: IVF transfer 08/26/24 (7) History of hemorrhage, currently : Status: Acute Comment: retained products of conception 3wk PP s/p suction D and C (8) Conceived by in vitro fertilization: Status: Acute Comment: transfer 08/26/24, plan echo at 22-24 weeks Orders: Orders POC Urinalysis 2 Dip (Clinic) Today CBC W/Diff, Automated Today O09.90 - Supervision of high risk , unspecified, unspecified trimester Glucose Challenge Gest 1H 50g Today O09.90 - Supervision of high risk , unspecified, unspecified trimester, Z13.1 - Encounter for screening for diabetes mellitus HIV Today O09.90 - Supervision of high risk , unspecified, unspecified trimester Syphilis Antibodies Today O09.90 - Supervision of high risk , unspecified, unspecified trimester Plan Details Goals & Barriers: Goals Decrease spasm Decrease pain Improve workability Improve posture 01/06/25 1454 <Electronically signed by Paola Bolaños DO> Date _ Paola Weeks DO Cosigner Signature: Date (if applicable) CC: ~ [facility] Work Phone: 1(847) [phone] Radiology Diagnostic study note [facility] Services [address] [place] [address] OB Anatomy w/ Transvaginal MR#: [id number] Acct: [id number] Name: KATIE ROBB Rep #: [id number] : 1990 F 34 From: Razia Link MD PCP: Dr. Liv Matta MD Status: REG CLI Study:OB Anatomy w/ Transvaginal Date of Exam : 12/25/24 Exam# [id number] Ordering Dr: Nat Contreras MD PROCEDURE: OB ANATOMY W/ TRANSVAGINAL 12/25/2024 REASON FOR EXAM: OB ANATOMY SCAN TECHNIQUE: OB ANATOMY W/ TRANSVAGINAL COMPARISON: Pelvic ultrasound 10/05/2024 FINDINGS Number: 1 Position: Vertex Placental Position: Anterior Placental Abnormalities: Limited evaluation is unremarkable DIMENSIONS: Biparietal Diameter: Not obtained Head Circumference: Not obtained Abdominal Circumference: 15.2 cm/53% Femur Length: 3.1 cm/22% ESTIMATED WEIGHT: Not obtained ESTIMATED WEIGHT PERCENTILE (24+ weeks): Not obtained ESTIMATED GESTATIONAL AGE: Baseline: 20 weeks 1 day By Ultrasound: 19 weeks 1 day ESTIMATED DATE OF DELIVERY: Baseline: 05/13/2025 By Ultrasound: 05/20/2025 BIOPHYSICAL ASSESSMENT: Amniotic Fluid Volume: Measures 4.9 cm in the right lower quadrant, other locations were not obtained Amniotic Fluid Index: Not performed (8-24 cm normal range) heart rate: 143 beats per minute MATERNAL ANATOMY: Adnexa: Neither maternal ovary is successfully identified. Cervical Length (if measured): 2.5 cm ANATOMY: Spine: Unremarkable Cranium: Poorly visualized Cerebellum: Suboptimally visualized, measuring 1.7 cm Cisterna Magna: Suboptimally visualized, measuring 0.7 cm Cavum Septum Pellucidi: Not visualized Lateral Ventricles: Not visualized Choroid Plexus: Unremarkable Upper Lip: Not visualized Heart: Not visualized Ventricular Outflow Tracts: Not visualized Stomach: Unremarkable Kidneys: Not well-visualized Bladder: Unremarkable Umbilical Cord: Normal three-vessel cord Extremities: Unremarkable US/OB Anatomy w/ Transvaginal IMPRESSION: 1. Markedly limited exam, with nonvisualization of numerous anatomic structuresas detailed above. Recommend patient return for additional imaging to complete the anatomy scan. 2. The questionable "second uterus" documented by the technologist is favored to represent the normal cervix and lower uterine segment, as there was no uterine anomaly seen on the ultrasound dated 10/05/2024. Per Dr. Mendenhall, MRI is planned to exclude ectopic . 3. Deepest vertical pocket of amniotic fluid measures 4.9 cm, normal. Impression in this case discussed with Dr. Mendenhall on 12/25/2024 at 6:55 p.m. Reading Location: [id number] CC: Dr. Liv Matta MD; Dr. Nat Gomez MD ~ Spiritual Advisor: Signed [facility]06-27-2025 Evaluation note* Diagnosis Onset Date Resolution Status Admit Date Conceived by in vitro fertilization acute December 05, 2024 11:39am History of hemorrhage, currently acute J une 2024 11:39am Infertility acute December 05 11:39am acute December 05 11:39am Supervision of high-risk acute December 05, 2024 11:39am Segmental dysfunction of lumbar region acute December 11, 2024 1 1:58am Segmental dysfunction of thoracic region acute December 11, 2024 1 1:58am Acute bronchitis deleted December 2:51pm Segmental and somatic dysfunction of lumbar region acute Dec 2:59pm Segmental and somatic dysfunction of pelvic region acute Dec 2:59pm Segmental dysfunction of thoracic region acute December 16, 2024 2 :59pm Abnormal ultrasound acute December 25, 2024 6:36pm Dysuria acute January 01 8:22am Abnormal ultrasound acute January 06, 2025 2:04pm Conceived by in vitro fertilization acute January 06, 2025 2:04pm Dysuria acute January 06 2:04pm History of hemorrhage, currently acute J violeta 2024 2:04pm Infertility acute January 06 2:04pm Placenta succenturiata acute Ju ly 2024 2:04pm acute January 06 2:04pm Supervision of high-risk acute January 06, 2025 2:04pm Abnormal ultrasound acute January 29, 2025 3:11pm Conceived by in vitro fertilization acute January 29 3:11pm Dysuria acute January 29, 2 025 3:11pm History of hemorrhage, currently acute A ugust 2024 3:11pm Infertility acute January 29, 2025 3:11pm Placenta succenturiata acute Au maximus 2024 3:11pm acute January 29, 2 025 3:11pm Segmental and somatic dysfunction of lumbar region acute Jan2024 3:11pm Segmental and somatic dysfunction of pelvic region acute Jan us2024 3:11pm Segmental dysfunction of lumbar region acute January 29 3:11pm Segmental dysfunction of thoracic region acute January 29 3:11pm Supervision of high-risk acute January 29 3:11pm Abnormal ultrasound acute February 19, 2025 3:11pm Conceived by in vitro fertilization acute February 19, 2025 3:11pm History of hemorrhage, currently acute S eptember 2024 3:11pm Infertility acute February 3:11pm Placenta succenturiata acute Se ptember 2024 3:11pm acute February 3:11pm Segmental and somatic dysfunction of lumbar region acute Sep tem2024 3:11pm Segmental and somatic dysfunction of pelvic region acute Sep 2024 3:11pm Segmental dysfunction of lumbar region acute February 19, 2025 3:11pm Segmental dysfunction of thoracic region acute February 19, 2025 3:11pm Supervision of high-risk acute February 19, 2025 3:11pm Abnormal ultrasound acute March 05, 2025 3:06pm 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 acute March 05, 2025 3:06pm Conceived by in vitro fertilization acute March 05, 2025 3:06pm Dysuria acute February 3:06pm History of hemorrhage, currently acute S ep2024 3:06pm Infertility acute February 3:06pm Placenta succenturiata acute Se ptember 2024 3:06pm acute February 3:06pm Segmental and somatic dysfunction of lumbar region acute Sep 2024 3:06pm Segmental and somatic dysfunction of pelvic region acute Sep 2024 3:06pm Segmental dysfunction of lumbar region acute March 05, 2025 3:06pm Segmental dysfunction of thoracic region acute March 05, 2025 3:06pm Supervision of high-risk acute March 05, 2025 3:06pm [facility] Work Phone: 1(285) 455-518906-27-2025 Evaluation note* Diagnosis Onset Date Resolution Status Admit Date Conceived by in vitro fertilization acute December 05, 2024 11:39am History of hemorrhage, currently acute J une 2024 11:39am Infertility acute December 05 11:39am acute December 05 11:39am Supervision of high-risk acute December 05, 2024 11:39am Segmental dysfunction of lumbar region acute December 11, 2024 1 1:58am Segmental dysfunction of thoracic region acute December 11, 2024 1 1:58am Acute bronchitis deleted December 2:51pm Segmental and somatic dysfunction of lumbar region acute Dec 2:59pm Segmental and somatic dysfunction of pelvic region acute Dec 2:59pm Segmental dysfunction of thoracic region acute December 16, 2024 2 :59pm Abnormal ultrasound acute December 25, 2024 6:36pm Dysuria acute January 01 8:22am Abnormal ultrasound acute January 06, 2025 2:04pm Conceived by in vitro fertilization acute January 06, 2025 2:04pm Dysuria acute January 06 2:04pm History of hemorrhage, currently acute J violeta 2024 2:04pm Infertility acute January 06 2:04pm Placenta succenturiata acute Ju ly 2024 2:04pm acute January 06 2:04pm Supervision of high-risk acute January 06, 2025 2:04pm Abnormal ultrasound acute January 29, 2025 3:11pm Conceived by in vitro fertilization acute January 29 3:11pm Dysuria acute January 29, 2 025 3:11pm History of hemorrhage, currently acute A ugust 2024 3:11pm Infertility acute January 29, 2025 3:11pm Placenta succenturiata acute Au maximus 2024 3:11pm acute January 29, 2 025 3:11pm Segmental and somatic dysfunction of lumbar region acute Jan 3:11pm Segmental and somatic dysfunction of pelvic region acute Jan 3:11pm Segmental dysfunction of lumbar region acute January 29 3:11pm Segmental dysfunction of thoracic region acute January 29 3:11pm Supervision of high-risk acute January 29 3:11pm Abnormal ultrasound acute February 19, 2025 3:11pm Conceived by in vitro fertilization acute February 19, 2025 3:11pm History of hemorrhage, currently acute S eptember 2024 3:11pm Infertility acute February 3:11pm Placenta succenturiata acute Se ptember 2024 3:11pm acute February 3:11pm Segmental and somatic dysfunction of lumbar region acute Sep 2024 3:11pm Segmental and somatic dysfunction of pelvic region acute Sep 2024 3:11pm Segmental dysfunction of lumbar region acute February 19, 2025 3:11pm Segmental dysfunction of thoracic region acute February 19, 2025 3:11pm Supervision of high-risk acute February 19, 2025 3:11pm Abnormal ultrasound acute March 05, 2025 3:06pm 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 acute March 05, 2025 3:06pm Conceived by in vitro fertilization acute March 05, 2025 3:06pm Dysuria acute February 3:06pm History of hemorrhage, currently acute S eptemb2024 3:06pm Infertility acute February 3:06pm Placenta succenturiata acute Se ptember 2024 3:06pm acute February 3:06pm Segmental and somatic dysfunction of lumbar region acute Sep 2024 3:06pm Segmental and somatic dysfunction of pelvic region acute Sep 2024 3:06pm Segmental dysfunction of lumbar region acute March 05, 2025 3:06pm Segmental dysfunction of thoracic region acute March 05, 2025 3:06pm Supervision of high-risk acute March 05, 2025 3:06pm Abnormal ultrasound acute March 17, 2025 10:19am 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 acute March 17 10:19am Conceived by in vitro fertilization acute March 17 10:19am Dysuria acute March 17, 025 10:19am History of hemorrhage, currently acute O ctober 2024 10:19am Infertility acute March 17, 2025 10:19am Placenta succenturiata acute Oc tober 2024 10:19am acute March 17, 2 025 10:19am Segmental and somatic dysfunction of lumbar region acute Mar 10:19am Segmental and somatic dysfunction of pelvic region acute Mar 10:19am Segmental dysfunction of lumbar region acute March 17 10:19am Segmental dysfunction of thoracic region acute March 17 10:19am Supervision of high-risk acute March 17 10:19am [facility] Work Phone: 1(935) 701-580305-27-2025 Evaluation note* Diagnosis Onset Date Resolution Status Admit Date Conceived by in vitro fertilization acute November 04, 2024 3 :15pm History of hemorrhage, currently acute M ay 2024 3:15pm Infertility acute November 04 3:15pm acute November 04, 2024 3:15pm Supervision of high-risk acute November 04, 2024 3 :15pm Conceived by in vitro fertilization acute December 05, 2024 11:39am History of hemorrhage, currently acute J une 2024 11:39am Infertility acute December 05 11:39am acute December 05 11:39am Supervision of high-risk acute December 05, 2024 11:39am Segmental dysfunction of lumbar region acute December 11, 2024 1 1:58am Segmental dysfunction of thoracic region acute December 11, 2024 1 1:58am Acute bronchitis deleted December 2:51pm Segmental and somatic dysfunction of lumbar region acute Dec 2:59pm Segmental and somatic dysfunction of pelvic region acute Dec 2:59pm Segmental dysfunction of thoracic region acute December 16, 2024 2 :59pm Abnormal ultrasound acute December 25, 2024 6:36pm Dysuria acute January 01 8:22am Abnormal ultrasound acute January 06, 2025 2:04pm Conceived by in vitro fertilization acute January 06, 2025 2:04pm Dysuria acute January 06 2:04pm History of hemorrhage, currently acute J violeta 2024 2:04pm Infertility acute January 06 2:04pm Placenta succenturiata acute Ju ly 2024 2:04pm acute January 06 2:04pm Supervision of high-risk acute January 06, 2025 2:04pm Abnormal ultrasound acute January 29, 2025 3:11pm Conceived by in vitro fertilization acute January 29 3:11pm Dysuria acute January 29, 2 025 3:11pm History of hemorrhage, currently acute A ugust 2024 3:11pm Infertility acute January 29, 2025 3:11pm Placenta succenturiata acute Au maximus 2024 3:11pm acute January 29, 2 025 3:11pm Segmental and somatic dysfunction of lumbar region acute Jan ust 2024 3:11pm Segmental and somatic dysfunction of pelvic region acute Jan us2024 3:11pm Segmental dysfunction of lumbar region acute January 29 3:11pm Segmental dysfunction of thoracic region acute January 29 3:11pm Supervision of high-risk acute January 29 3:11pm Abnormal ultrasound acute February 19, 2025 3:11pm Conceived by in vitro fertilization acute February 19, 2025 3:11pm Dysuria acute February 3:11pm History of hemorrhage, currently acute S eptember 2024 3:11pm Infertility acute February 3:11pm Placenta succenturiata acute Se ptember 2024 3:11pm acute February 3:11pm Segmental and somatic dysfunction of lumbar region acute Sep 2024 3:11pm Segmental and somatic dysfunction of pelvic region acute Sep 2024 3:11pm Segmental dysfunction of lumbar region acute February 19, 2025 3:11pm Segmental dysfunction of thoracic region acute February 19, 2025 3:11pm Supervision of high-risk acute February 19, 2025 3:11pm [facility] Work Phone: 1(107) 887-334205-27-2025 [facility] [address] [place] [address], [address] [place] [address] OFFICE VISIT Date of Service: 11/04/24 MR#: [id number] Acct: [id number] Name: KATIE ROBB Rep #: [id number] : 1990 Provider: LIUDMILA Armstrong Age/Sex: 34/F [place] [facility] Status: Signed Intake Vital Signs 10/21/24 14:58 11/04/24 15:20 Height 5 ft 7 in 5 ft 7 in Weight: 196 lb 4 oz BMI 30.7 BP 117/81 H Intake Visit Reasons: 12wk ob Chief Complaint: 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 GA appropriate handout given. Goals & Barriers: Goals Decrease spasm Decrease pain Improve workability Improve posture Clinical Quality Measures Falls Risk Screening/Assistive Devices Have you fallen in the past year?: No 11/04/24 1543 s KODYM> Date _ Niya Armstrong CNM Cosigner Signature: Date (if applicable) CC: ~ [facility]05-27-2025 Progress note Author Niya Armstrong [facility] Note Date/Time November 04, 2024 3:43p [facility] [address] [place] [address], [address] [place] [address] OFFICE VISIT Date of Service: 11/04/24 MR#: [id number] Acct: [id number] Name: KATIE ROBB Rep #: [id number] : 1990 Provider: LIUDMILA Armstrong Age/Sex: 34/F [place] [facility] Status: Signed Intake Vital Signs 10/21/24 14:58 11/04/24 15:20 Height 5 ft 7 in 5 ft 7 in Weight: 196 lb 4 oz BMI 30.7 BP 117/81 H Intake Visit Reasons: 12wk ob Chief Complaint: 12wk OB [employer] Crewmember Required: No Is patient in pain?: No [...] 3-4 times per week duration: 30-45 minutes/day diego/druze: None seatbelt use: always do you feel [...] 39 live - full term 9lbs Female [facility] [place] Armstrong Yayo HPI 12wk ob Details: KATIE ROBB is [...] -?-?-?-?-?-?-?-?-?-?-?-?- 173 -?-?-?-?-?-?-?-?-?-?-?-?- KW- CRL cons wit hospital [place]. 7 days behind IVF implantation [...] Monitoring, Signs and Symptoms of Preeclampsia and [place] [employer] ROS Const Reports system reviewed and [...] fallen in the past year?: No 11/04/24 1098 <Electronically signed by Niya callejas CNM> Date _ Niya Armstrong CNM [facility] Signature: Date (if applicable) CC: ~ [facility] Work Phone: 1(379) 240-868005-13-2025 [facility] [address] [place] [address], [address] [place] [address] OFFICE VISIT Date of Service: 10/21/24 MR#: [id number] Acct: [id number] Name: KATIE ROBB Rep #: [id number] : 1990 Provider: Dr. 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 Is patient in pain?: No [...] 3-4 times per week duration: 30-45 minutes/day diego/druze: None seatbelt use: always do you feel [...] 39 live - full term 9lbs Female [facility] Brent Zee HPI 10 WK OB [...] Monitoring, Signs and Symptoms of Preeclampsia and [place] [employer] Results POC Urinalysis 2 Dip (Clinic) [...] zenaida HELTON> Date _ [facility] Signature: Date (if applicable) CC: ~ [facility]05-13-2025 Progress note Author Nat Gomez [facility] Note Date/Time October 21, 2024 3:22p [facility] [address] [place] [address], [address] [place] [address] OFFICE VISIT Date of Service: 10/21/24 MR#: [id number] Acct: [id number] Name: KATIE ROBB Rep #: [id number] : 1990 Provider: Dr. 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 2024 2:48pm Infertility acute October 21 2:48pm acute October 21, 2024 2:48pm Supervision of high-risk acute October 21, 2024 2 :48pm Conceived by in vitro fertilization acute November 04, 2024 3 :15pm History of hemorrhage, currently acute [facility] 2024 3:15pm Infertility acute November 04 3:15pm acute November 04, 2024 3:15pm Supervision of high-risk acute November 04, 2024 3 :15pm [facility] Work Phone: 1([phone]) 689-896104-29-2025 Evaluation note* Diagnosis Onset Date Resolution Status [...] 2 :48pm History of hemorrhage, currently acute [facility] 2024 2:48pm Infertility acute October 21 2:48pm acute October 21, 2024 2:48pm Supervision of high-risk acute October 21, 2024 2 :48pm Conceived by in vitro fertilization acute November 04, 2024 3 :15pm History of hemorrhage, currently acute [facility] 2024 3:15pm Infertility acute November 04 3:15pm acute November 04, 2024 3:15pm Supervision of high-risk acute November 04, 2024 3 :15pm Conceived by in vitro fertilization acute December 05, 2024 11:39am History of hemorrhage, currently acute [facility] 2024 11:39am Infertility acute December 05 11:39am acute December 05 11:39am Supervision of high-risk acute December 05, 2024 11:39am [facility] Work Phone: 1([phone] 250-561804-29-2025 Evaluation note* Diagnosis Onset Date Resolution Status [...] 11:39am History of hemorrhage, currently acute J une 2024 11:39am Infertility acute December 05 11:39am [...] region acute December 16, 2024 2 :59pm [facility] Work Phone: 1([phone]) 184-385304-29-2025 Evaluation note* Diagnosis Onset Date Resolution Status [...] 11:39am History of hemorrhage, currently acute J une 2024 11:39am Infertility acute December 05 11:39am acute December 05 11:39am Supervision of high-risk acute December 05, 2024 11:39am Segmental dysfunction of lum bar region acute December 11, 2024 1 1:58am Segmental dysfunction of thoracic region acute December 11, 2024 1 1:58am Acute bronchitis acute December 2:51pm Segmental and somatic dysfunction of lumbar region acute Dec 2:59pm Segmental and somatic dysfunction of pelvic region acute Dec 2:59pm Segmental dysfunction of thoracic region acute December 16, 2024 2 :59pm [facility] Work Phone: 1([phone]) 868-739904-29-2025 Evaluation note* Diagnosis Onset Date Resolution Status [...] 11:39am History of hemorrhage, currently acute J une 2024 11:39am Infertility acute December 05 11:39am acute December 05 11:39am Supervision of high-risk acute December 05, 2024 11:39am Segmental dysfunction of lum bar region acute December 11, 2024 1 1:58am Segmental dysfunction of thoracic region acute December 11, 2024 1 1:58am Acute bronchitis acute December 2:51pm Segmental and somatic dysfunction of lumbar region acute Dec 2:59pm Segmental and somatic dysfunction of pelvic region acute Dec 2:59pm Segmental dysfunction of thoracic region acute December 16, 2024 2 :59pm Abnormal ultrasound acute December 25, 2024 6:36pm Dysuria acute January 01 8:22am [facility] Work Phone: 1([phone]) [phone] Evaluation note* Diagnosis Onset Date Resolution Status [...] 11:39am History of hemorrhage, currently acute J une 2024 11:39am Infertility acute December 05 11:39am acute December 05 11:39am Supervision of high-risk acute December 05, 2024 11:39am Segmental dysfunction of lum bar region acute December 11, 2024 1 1:58am Segmental dysfunction of thoracic region acute December 11, 2024 1 1:58am Acute bronchitis deleted December 2:51pm Segmental and somatic dysfunction of lumbar region acute Dec 2:59pm Segmental and somatic dysfunction of pelvic region acute Dec 2:59pm Segmental dysfunction of thoracic region acute December 16, 2024 2 :59pm Abnormal ultrasound acute December 25, 2024 6:36pm Dysuria acute January 01 8:22am Abnormal ultrasound acute January 06, 2025 2:04pm Conceived by in vitro fertilization acute January 06, 2025 2:04pm Dysuria acute January 06 2:04pm History of hemorrhage, currently acute J violeta 2024 2:04pm Infertility acute January 06 2:04pm Placenta succenturiata acute Ju ly 2024 2:04pm acute January 06 2:04pm Supervision of high-risk acute January 06, 2025 2:04pm [facility] Work Phone: 1([phone]) [phone] Evaluation note* Diagnosis Onset Date Resolution Status Admit Date Conceived by in vitro fertilization acute October 07, 2024 2:42pm History of hemorrhage, currently acute A pril 2024 2:42pm Infertility acute October 07, 2 2:42pm acute October 07 2:42pm Supervision of [...] :15pm History of hemorrhage, currently acute M 2024 3:15pm Infertility acute November 04 3:15pm acute November 04, 2024 3:15pm Supervision of high-risk acute November 04, 2024 3 :15pm Conceived by in vitro fertilization acute December 05, 2024 11:39am History of hemorrhage, currently acute J une 2024 11:39am Infertility acute December 05 11:39am acute December 05 11:39am Supervision of high-risk acute December 05, 2024 11:39am Segmental dysfunction of lum bar region acute December 11, 2024 1 1:58am Segmental dysfunction of thoracic region acute December 11, 2024 1 1:58am Acute bronchitis deleted December 2:51pm Segmental and somatic dysfunction of lumbar region acute Dec 2:59pm Segmental and somatic dysfunction of pelvic region acute Dec 2:59pm Segmental dysfunction of thoracic region acute December 16, 2024 2 :59pm Abnormal ultrasound acute December 25, 2024 6:36pm Dysuria acute January 01 8:22am Abnormal ultrasound acute January 06, 2025 2:04pm Conceived by in vitro fertilization acute January 06, 2025 2:04pm Dysuria acute January 06 2:04pm History of hemorrhage, currently acute J violeta 2024 2:04pm Infertility acute January 06 2:04pm Placenta succenturiata acute Ju ly 2024 2:04pm acute January 06 2:04pm Supervision of high-risk acute January 06, 2025 2:04pm Abnormal ultrasound acute January 29, 2025 3:11pm Conceived by in vitro fertilization acute January 29 3:11pm Dysuria acute January 29, 2 025 3:11pm History of hemorrhage, currently acute A ugust 2024 3:11pm Infertility acute January 29, 2025 3:11pm Placenta succenturiata acute Au maximus 2024 3:11pm acute January 29, 2 025 3:11pm Segmental and somatic dysfunction of lumbar region acute Aug ust 2024 3:11pm Segmental and somatic dysfunction of pelvic region acute Aug ust 2024 3:11pm Segmental dysfunction of lum bar region acute January 29 3:11pm Segmental dysfunction of thoracic region acute January 29 3:11pm Supervision of high-risk acute January 29 3:11pm [facility] Work Phone: 1(455) 242-822604-28-2025 Discharge summary [facility] Medical Records Department [address] [place] [address] Emergency Department Summary 10/05/24 MR#: [id number] Acct: [id number] Name: KATIE ROBB Rep #:[id number] : 1990 34 From: Nikko Guerrero MD PCP: Dr. Liv Matta MD Status:REG ER Location: ED HPI [...] She c alled the nurse practitioner at [facility] who told her to come to the emergency department for evaluation. 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 They statethat they have an appointment on Sunday, tomorrow as it is now past midnight. I will discuss patient with Dr. Nuñez on-call for CAR SALESPERSON. How ever, patientstated she did not want [...] % (Auto) 58.0 Lymph % (Auto) 23.5 [place]appah[place] % (Auto) 7.4 Eos % (Auto) 10.0 [...] Globulin 2.5 Albumin/Globulin Ratio 1.7 HCG, Quant 95203 H Radiography Diagnostic Testing: Clinical Impression(s) from Imaging Studies Obstetrics Ultrasound 10/05/24 22:23 IMPRESSION: UNREMARKABLE FIRST TRIMESTER ULTRASOUND. Reading Location: [facility] Discharge Plan Triage Chief Complaint: Vag Bld, Preg ED Provider: Nikko Guerrero Dx/Rx/DC Orders Clinical Impression: Threatened miscarriage, Vaginal bleeding during Instructions: Bleeding During Early , Miscarriage Threatened Prescriptions: No Action PNV no.63-iron,mwavbaeu-VL-rlk 27 mg iron- 800 mcg-200 mg capsule 1 cap PO QDAY progesterone 50 mg/mL oil 10 mg IM QDAY conjugated estrogens 25 mg recon soln 25 mg IM ONCE Rx Instructions: as a single dose Primary Care Provider: Liv Matta Referrals: Nat Gomez MD [Med Staff - Active Staff] - Keep [facility] appointment Care Physician,No Primary [Non-Staff] - Print Language: Filipino Disposition Disposition: Home, Self Care What to do if you have Problems For any increased pain, shortness of breath, bleeding, nausea or vomiting, chestpain, or any unexpected problems, contact your Primary Care Provider. Call [facility] ([phone]) or report tothe closest Emergency Room. Call 911 if necessary. 10/06/24 0107 Cosigner Signature (if applicable): CC: Dr. Liv Matta MD ~ Signed [facility]04-27-2025 Radiology Diagnostic study note [facility] Imaging Services [address] [place] [address] Transvaginal w/Preg US MR#: [id number] Acct: [id number] Name: KATIE ROBB Rep #: [id number] : 1990 F 34 From: oTnny Alvarado MD PCP: Dr. Liv Matta MD Status: REG ER Study:Transvaginal w/Preg US Date of Exam: 10/05/24 Exam# [id number] Ordering Dr: Nikko Guerrero MD PROCEDURE: TRANSVAGINAL [...] and unremarkable. DIMENSIONS: Parameter Measurement / EGA [place] Rump Length: 16 mm/7 weeks 6 days Gestational Sac: 18 mm/6 weeks 5 days Yolk Sac: 4 mm/ ESTIMATED GESTATIONAL AGE: By Ultrasound: 7 weeks 2 days By LMP: 8 weeks 4 days ESTIMATED DATE OF DELIVERY: By Ultrasound: 05/22/2025 By LMP: 05/13/2025 US/Transvaginal w/Preg US IMPRESSION: UNREMARKABLE FIRST TRIMESTER ULTRASOUND. Reading Location: [id number] CC: Dr. Nikko Guerrero MD; Dr. Liv Matta MD ~ Spiritual Advisor: Signed [facility]04-27-2025 Discharge summary Author Nikko Guerrero [facility] Note Date/Time October 06, 2024 1:0 7am [facility] Medical Records Department [address] [place] [address] Emergency Department Summary 10/05/24 MR#: [id number] Acct: [id number] Name: KATIE ROBB Rep #:[id number] : 1990 34 From: Nikko Guerrero MD PCP: Dr. Liv Matta MD Status:REG ER Location: ED HPI [...] symptoms. She called the nurse practitioner at [facility] who told her to come to the emergency department for evaluation. 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 ROS ED ROS Narrative Review of systems [...] she can be discharged to follow-up with CAR SALESPERSON. They statethat they have an appointment on Sunday, tomorrow as it is now past midnight. I will discuss patient with Dr. Nuñez on-call for CAR SALESPERSON. However, patientstated she did not want to [...] % (Auto) 58.0 Lymph % (Auto) 23.5 [place] % (Auto) 7.4 Eos % (Auto) 10.0 [...] Globulin 2.5 Albumin/Globulin Ratio 1.7 HCG, Quant 21470 H Radiography Diagnostic Testing: Clinical Impression(s) from Imaging Studies Obstetrics Ultrasound 10/05/24 22:23 IMPRESSION: UNREMARKABLE FIRST TRIMESTER ULTRASOUND. Reading Location: [facility] Discharge Plan Triage Chief Complaint: Vag Bld, Preg ED Provider: Nikko Guerrero Dx/Rx/DC Orders Clinical Impression: Threatened miscarriage, Vaginal bleeding during Instructions: Bleeding During Early , Miscarriage Threatened Prescriptions: No Action PNV no.63-iron,guwvafca-LD-hdo 27 mg iron- 800 mcg-200 mg capsule 1 cap PO QDAY progesterone 50 mg/mL oil 10 mg IM QDAY conjugated estrogens 25 mg recon soln 25 mg IM ONCE Rx Instructions: as a single dose Primary Care Provider: Liv Matta Referrals: Nat Gomez MD [Med Staff - Active Staff] - Keep [facility] appointment Care Physician,No Primary [Non-Staff] - Print Language: Filipino Disposition Disposition: Home, Self Care What to do if you have Problems For any increased pain, shortness of breath, bleeding, nausea or vomiting, chestpain, or any unexpected problems, contact your Primary Care Provider. Call [facility] ([phone]) or report to the closest Emergency Room. Call 911 if necessary. 10/06/24 010 <Electronically signed by Nikko Guerrero MD> Cosigner Signature (if applicable): CC: Dr. Liv Matta MD ~ Signed [facility] Work Phone: 1(117) 266-698902-11-2025 Evaluation note* Diagnosis Onset Date Resolution Status Admit Date Segmental dysfunction of lumbar region resolved July 22 2:56pm Segmental dysfunction of thoracic region resolved July 22 2:56pm Segmental and somatic dysfunction of lumbar region inactive Jul ruary 2024 2:56pm [facility] Work Phone: 1(885) 143-415302-11-2025 Evaluation note* Diagnosis Onset Date Resolution Status [...] high-risk acute October 21, 2024 2 :48pm [facility] Work Phone: 1(233) 100-586202-11-2025 Evaluation note* Diagnosis Onset Date Resolution Status [...] high-risk acute November 04, 2024 3 :15pm [facility] Work Phone: 1(608) 927-442701-08-2024 Procedure [facility] 03-15-2023 History of Present illness Narrative* Deejay Glasgow PA-C - 03/15/2023 2:40 PM EDT Images from the original note were not included. [facility] [address] [place] [address] [address] [facility] [address] Dept: [phone] Dept Loc: [phone] Visit type: Established Patient Reason for Visit: Asthma (Wants tested ) Assessment and Plan 1. Bronchospasm - Complete PFT study - montelukast (Singulair) 10 MG tablet; Take 1 tablet (10 mg) by mouth Nightly., Starting Sun03/15/2023, Until Sun09/11/2023, Normal - XR chest 2 views - ipratropium-albuterol (Combivent Respimat) 20-100 MCG/ACT inhaler; Inhale 2 puffs 4 times daily.,Starting Sun03/15/2023, Until Sun03/14/2024, Normal 2. Flu vaccine need [...] be sent for formal PFT study through [facility] per her request. Follow up if symptoms worsen or fail to improve, for Next scheduled follow-up. Subjective HPI this is a 33-year-old female with an underlying history of asthma contacted [facility] yesterday for next day appointment evaluation for [...] baby Last March 24.4, jul 14.3, November 12.9, Jan 12.1, feb 13.6, Currently the patient has no acute distress no shortness of breath currently no chest pain palpitations as needed for "tightness in her chest. She denies any current [...] 37.2 C (98.9 F) (Temporal) Ht 5' 7" (1.702 m) Wt 181 lb (82.1 kg) [...] prior to signing but minor errors in food production associate may have occurred. documented in this [facility]10-05-2023 Instructions* Patient Instructions* Deejay Glasgow PA-C [...] to get it scheduled. Their number is [phone]. documented in this [facility]10-04-2023 Telephone encounter Note* Telephone Encounter - [...] you have signs or symptoms consistent with COVID-"no" 2) Have you been exposed to COVID in last 5 days-"no" 3) Have you tested positive for COVID in last 5 days-"no" Home care advise given to patient: When [...] wants to be seen Protocols used: Asthma Edvapt-PDSWO-TM [id number] Miscellaneous Notes* Telephone Encounter - Sariah Parker [...] you have signs or symptoms consistent with COVID-"no" 2) Have you been exposed to COVID in last 5 days-"no" 3) Have you tested positive for COVID in last 5 days-"no" Home care advise given to patient: When [...] wants to be seen Protocols used: Asthma Pbmlck-UUUWT-EM documented in this [facility]09-19-2023 Progress note Author Paola Voss [facility] February 27, 2023 8:14am Note Date/Time February 27, 2023 8:14am [facility] Medical Records Department [address] [address] Progress Note - OBGYN 02/27/23810 MR#: [id number] Acct: [id number] Name: KATIE ROBB Rep #:[id number] : 1990 33 From: Paola Weeks DO PCP: SHANNAN VAZQUEZ DO Status:ADM I N Location: [place] [address]-1 Subjective Subjective patient is laying in bed [...] % (Auto) 58.1, Lymph % (Auto) 27.0, [place] % (Auto) 10.5 H, Eos % (Auto) [...] % (Auto) 48.3, Lymph % (Auto) 34.9, [place] % (Auto) 6.5, Eos % (Auto) 9.2 [...] Cosigner Signature (if applicable): CC: ~ Signed [facility] Work Phone: 1(270) 157-488409-18-2023 Discharge summary Author Nat Gomez [facility] February 26, 2023 5:18pm Note Date/Time February 25, 2023 11:02am [facility] Medical Records Department [address] [place] [address] Instructions for Home/Discharge Instructions 02/25/23 1102 MR#: [id number] Acct: [id number] Name: KATIE ROBB Rep #:[id number] : 1990 33 From: Nat crum MD [...] Up With: Nat Gomez MD When: Call [phone] to schedule appointment. Test Results: Test results [...] breath or wheezing Referrals / Follow Up: SHANNAN VAZQUEZ DO [Primary Care Provider] - Disposition Disposition (needs filled in before D/C Order can be placed): Home, Self Care 02/26/238<Electronically signed by Nat Gomez MD>Nat Gomez MD CC: SHANNAN VAZQUEZ DO; Dr. Nidhi Haro MD ~ Signed [facility] Work Phone: [phone]) 358-884209-18-2023 Progress note Author Nat Gomez [facility] February 26, 2023 5:18pm Note Date/Time February 26, 2023 10:22am [facility] Medical Records Department [address] [place] [address] Progress Note 02/26/23 1020 MR#: [id number] Acct: [id number] Name: KATIE ROBB ANGELINA Rep #:[id number] : 1990 33 From: Nidhi Haro MD PCP: SHANNAN VAZQUEZ, DO Status:ADM I N Location: [address] Subjective Subjective Patient seen and examined. She had no complaints and had an uneventful night. She is still having some bleeding. BP has improved. She was transferred to ICU due to concerns about DIC. Hypotension has now resolved. She is being transfusedwith one unit of PRBC. Bakri balloon was removed by rn clinical coordinator. Objective Data Objective Data Vital Signs: Vital [...] % (Auto) Cancelled, Lymph % (Auto) Cancelled, [place] % (Auto) Cancelled, Eos % (Auto) Cancelled, [...] Tear DropCells Cancelled, Ovalocytes Cancelled, Stomatocytes Cancelled, [place] Bodies Cancelled, Sophie Cells Cancelled, Bite Cells Cancelled, Crenated Cell Cancelled, Acanthocytes (Spur) Cancelled, Rouleaux Cancelled, Schistocytes Cancelled 02/25/23 21:00: WBC 15.9 H, RBC 2.70 L, Hgb 8.7 L, Hct 26.5 L, MCV 98.1, MCH 32.2 H, MCHC 32.8 D, RDW Std Deviation 50.2 H, RDW Coeff of Evens 14.0, Plt [id number], MPV 12.0 02/26/23 00:30: WBC 12.3 H, RBC 2.58 L, Hgb 8.4 L, Hct 24.6 L, MCV 95.3, MCH 32.6 H, MCHC 34.1, RDW Std Deviation 47.8 H, RDW Coeff of Evens 13.8, Plt Count 182, MPV 11.8, Immature Gran % (Auto) 0.600, Neut % (Auto) 72.9 H, Lymph % (Auto) 18.8 L, [place] % (Auto) 7.2, Eos % (Auto) 0.2, [...] % (Auto) 64.7, Lymph % (Auto) 23.6, [place] % (Auto) 8.9, Eos % (Auto) 1.9, [...] prophylaxis: SCDs Charges/Coding Visit Charges Inpatient E&M: 28320 Subs Hosp L2 02/26/23 1554 <Electronically signed by Nidhi Haro MD> Nidhi Haro MD Cosigner Signature (if applicable): 02/26/23 1718 <Electronically signed by Nat Gomez MD> CC: ~ Signed [facility] Work Phone: [phone]) 900-769609-18-2023 Progress [facility] February 26, 2023 3:13pm Note Date/Time February 26, 2023 3:14pm [facility] Medical Records Department [address] [place] [address] Progress Note 02/26/231512 MR#: [id number] Acct: [id number] Name: KATIE ROBB Rep #:[id number] : 1990 33 From: Nat crum MD PCP: SHANNAN VAZQUEZ DO Status:ADM I N Location: ICU CVICU 2-1 Progress Note patient seen over lunch hour- bleeding minimal, sitting up in chair vitals stable no dizziness, reviewed labs post transfusion stable for transfer to floor. 02/26/231512 <Electronically signed by Nat Gomez MD> Nat Gomez MD Cosigner Signature (if applicable): CC: ~ Signed [facility] Work Phone: [phone] Progress note [facility] February 26, 2023 8:07am Note Date/Time February 26, 2023 7:45am [facility] Medical Records Department [address] [place] [address] Progress Note - OBGYN 02/26/2345 MR#: [id number] Acct: [id number] Name: KATIE ROBB Rep #:[id number] : 1990 33 From: Nat crum MD [...] % (Auto) Cancelled, Lymph % (Auto) Cancelled, [place] % (Auto) Cancelled, Eos % (Auto) Cancelled, [...] Tear DropCells Cancelled, Ovalocytes Cancelled, Stomatocytes Cancelled, [place] Bodies Cancelled, [place] Cells Cancelled, Bite Cells Cancelled, Crenated Cell Cancelled, Acanthocytes (Spur) Cancelled, Rouleaux Cancelled, Schistocytes Cancelled 02/25/23 21:00: WBC 15.9 H, RBC 2.70 L, Hgb 8.7 L, Hct 26.5 L, MCV 98.1, MCH 32.2 H, MCHC 32.8 D, RDW Std Deviation 50.2 H, RDW Coeff of Evens 14.0, Plt Phmhv017, MPV 12.0 02/26/23 00:30: WBC 12.3 H, RBC 2.58 L, Hgb 8.4 L, Hct 24.6 L, MCV 95.3, MCH 32.6 H, MCHC 34.1, RDW Std Deviation 47.8 H, RDW Coeff of Evens 13.8, Plt Count 182, MPV 11.8, Immature Gran % (Auto) 0.600, Neut % (Auto) 72.9 H, Lymph % (Auto) 18.8 L, [place] % (Auto) 7.2, Eos % (Auto) 0.2, [...] % (Auto) 64.7, Lymph % (Auto) 23.6, [place] % (Auto) 8.9, Eos % (Auto) 1.9, [...] Cosigner Signature (if applicable): CC: ~ Signed [facility] Work Phone: 1([phone]) 360-871209-18-2023 Progress note Author Nat Gomez [facility] February 26, 2023 12:30am Note Date/Time February 26, 2023 12:30am [facility] Medical Records Department [address] [place] [address] Progress Note 02/26/2327 MR#: [id number] Acct: [id number] Name: KATIE ROBB Rep #:[id number] : 1990 33 From: Nat crum MD PCP: SHANNAN VAZQUEZ, Status:ADM I N Location: ICU CVICU20 2-1 [...] Cosigner Signature (if applicable): CC: ~ Signed [facility] Work Phone: 1(750) 785-421809-18-2023 Discharge summary Author Elliot Hill [facility] February 25, 2023 11:26pm Note Date/Time February 25, 2023 8:04am [facility] Medical Records Department [address] [place] [address] Emergency Department Summary 02/25/23 MR#: [id number] Acct: [id number] Name: KATIE ROBB Rep #:[id number] : 1990 33 From: Sampson Orr PCP: [...] Hill DO - Last Filed: 02/25/23 23:26> PFS Medical History Conceived by in vitro fertilization [...] 3-4 times per week duration: 30-45 minutes/day diego/druze: None seatbelt use: always do you feel safe at home: Yes additional social history: - Yayo ROS <Dr. Elliot Hill, DO - Last Filed: [...] Hill, DO - Last Filed: 02/25/23 23:26> MDM MDM Narrative Medical decision making narrative: Patient presented to the ER awake and alert with stable vital. She reported that she been passing blood and clots for approximately 12 hours. She is pale with pale conjunctiva concerning for acute blood loss anemia. Secondary to thisbasic labs with type and screen were obtained and patient was started on IV hydration. CAR SALESPERSON was contacted and they recommended emergent pelvic ultrasoundto further assess the cause of her bleeding but recommend patient also received TXA and Methergine. Patient was provided these medications and remained hemodynamically stable. At this time she is pending evaluation by her ultrasound and repeat consultation with CAR SALESPERSON. Therefore patient be signed outto the day [...] (Auto) 45.9 L Lymph % (Auto) 34.3 [place] % (Auto) 7.4 Eos % (Auto) 10.9 [...] León, DO - Last Filed: 02/25/23 15:47> [facility] Narrative Medical decision making narrative: Patient presented to the ER awake and alert with stable vital. She reported that she been passing blood and clots for approximately 12 hours. She is pale with pale conjunctiva concerning for acute blood loss anemia. Secondary to thisbasic labs with type and screen were obtained and patient was started on IV hydration. CAR SALESPERSON was contacted and they recommended emergent pelvic ultrasoundto further assess the cause of her bleeding but recommend patient also received TXA and Methergine. Patient was provided these medications and remained hemodynamically stable. At this time she is pending evaluation by her ultrasound and repeat consultation with CAR SALESPERSON. Therefore patient be signed outto the day [...] (Auto) 45.9 L Lymph % (Auto) 34.3 [place] % (Auto) 7.4 Eos % (Auto) 10.9 [...] Arthur Vazquez MD at 10:08 EDT , Discharge Plan Dx/Rx/DC Orders Clinical Impression: hemorrhage Disposition Disposition: Acute Care Hospital [facility] Discharge Date/Time: 02/25/23 11:16 What to do if you have Problems For any increased pain, shortness of breath, bleeding, nausea or vomiting, chestpain, or any unexpected problems, contact your Primary Care Provider. Call [facility] ([phone]) or report to the closest Emergency Room. Call 911 if necessary. 02/25/23 1547 <Electronically signed by Sampson Orr> Cosigner Signature (if applicable): 02/25/23 2326 <Electronically signed by Elliot Hill DO> CC: SHANNAN VAZQUEZ DO ~ Signed [facility] Work Phone: [phone]) [phone] Progress note Author Valentine Urbina [facility] February 25, 2023 6:28pm Note Date/Time February 25, 2023 6:01pm [facility] Medical Records Department [address] [place] [address] Progress Note - Hospitalist 02/25/23 1801 MR#: [id number] Acct: [id number] Name: KATIE ROBB Rep #:[id number] : 1990 33 From: Valentine Urbina MD PCP: SHANNAN VAZQUEZ DO Status:ADM I N Location: ICU CVICU20 2-1 Reason for Visit Reason for Visit: Post bleeding Subjective Subjective Patient is a 33-year-old female with history of hypothyroidism in withunremarkable vaginal 3 weeks ago who presented to [facility] 02/25/2023 due to vaginal bleeding. She had [...] (Auto) 45.9 L, Lymph % (Auto) 34.3, [place] % (Auto) 7.4, Eos % (Auto) 10.9 [...] % (Auto) Cancelled, Lymph % (Auto) Cancelled, [place] % (Auto) Cancelled, Eos % (Auto) Cancelled, [...] Tear DropCells Cancelled, Ovalocytes Cancelled, Stomatocytes Cancelled, [place] Bodies Cancelled, [place] Cells Cancelled, Bite Cells Cancelled, Crenated Cell [...] documentation, 45minutes Charges/Coding Visit Charges Inpatient E&M: 36069 Subs Hosp L2 02/25/23 1828 <Electronically signed by Valentine Urbina MD> Cosigner Signature (if applicable): CC: ~ Signed [facility] Work Phone: [phone]) 218-757809-17-2023 Progress note Author Nat Gomez [facility] February 25, 2023 5:25pm Note Date/Time February 25, 2023 5:25pm [facility] Medical Records Department [address] [place] [address] Progress Note 02/25/23 172 MR#: [id number] Acct: [id number] Name: KATIE ROBB Rep #:[id number] : 1990 33 From: Nat crum MD PCP: SHANNAN VAZQUEZ DO Status:ADM I N [facility] Note reviewed labs- patient is in [...] Cosigner Signature (if applicable): CC: ~ Signed [facility] Work Phone: 1(857) 291-775009-17-2023 Progress note Author Nat Gomez [facility] February 25, 2023 3:56pm Note Date/Time February 25, 2023 3:57pm [facility] Medical Records Department [address] [place] [address] Progress Note 02/25/23 1554 MR#: [id number] Acct: [id number] Name: KATIE ROBB Rep #:[id number] : 1990 33 From: Nat crum MD PCP: SHANNAN VAZQUEZ, DO Status:ADM I N Location: SM563-7 Progress Note bleeding minimal, bps 105/68 HR 80s, reviewed labs borderline DIC but clinicallystable recommend repeat lab panel now. reviewed with nursing staff. continue IVFs 02/25/23 1556 <Electronically signed by Nat Gomez MD> Nat Gomez MD Cosigner Signature (if applicable): CC: ~ Signed [facility] Work Phone: 1([phone]) 465-421209-17-2023 History and physical note Author Nat Gomez [facility] February 25, 2023 11:01am Note Date/Time February 25, 2023 11:01am [facility] Medical Records Department [address] [place] [address] History & Physical Exam 02/25/23 1059 MR#: [id number] Acct: [id number] Name: KATIE ROBB Rep #:[id number] : 1990 33 From: Nat crum MD PCP: SHANNAN VAZQUEZ, DO Status:REG S DC Location: AC02-1 HPI - General HPI Narrative KATIE ROBB, is a 33 F who presents with increasing vaginal bleeding, 3 weeks . she had a resolution of bleeding and then started back up again thelast few days, denies any fevers, passed some membranous tissue. [facility] Medical History Conceived by in vitro fertilization [...] 3-4 times per week duration: 30-45 minutes/day diego/druze: None seatbelt use: always do you feel [...] (Auto) 45.9 L, Lymph % (Auto) 34.3, [place] % (Auto) 7.4, Eos % (Auto) 10.9 [...] VAZQUEZ DO; Dr. Nat Gomez MD~ Signed [facility] Work Phone: 1(618) 893-441009-17-2023 Procedure [facility] 10-25-2021 NoteHNO ID: [id number] Author: Elie Guevara PA-C Service: ? Author Type: Physician Ski Tow Operator Type: Progress Notes Filed: 10/25/2021 6:25 PM [...] other intestinal disorders. No recent outside of [facility] travel, new foods/restaurants, or camping/out door eating. It started while at a wedding in [place]. No camping or well-water use. She works [...] organomegaly, no rebound tenderness or guarding. No [employer] or [employer] sign. No CVA tenderness to percussion. Skin: no rash noted, cap refill <3sec, normal skin turgor noted. ASSESSMENT/PLAN: 1. 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 DIFFICILE [...] Discussed likely viral nature Encourage fluids, rest. Glenn foods- Bread, crackers, rice No spicy, caffeine, [...] Low risk from testing/kirstin (more content not included)...[facility]12-17-2021 NoteGyn Discharge Summary Patient Name: Katie [...] Your Medications These medications were sent to [facility] [address] - [phone] - F [phone] [address] acetaminophen 500 MG tablet docusate sodium 100 MG capsule ibuprofen 600 MG tablet oxyCODONE 5 MG immediate release tablet simethicone 80 MG chewable tablet Activity: no heavy lifting for 3 weeks, no driving on narcotics Diet: regular diet Follow up: 06/16/[address] Golden Condition on discharge: good and stable Discharge Date: 12/17/21 Comments: Home care, Follow-up care, restrictions reviewed. Arthur Crawford Roosevelt, DO 05/27/2021, 2:08 PM I reviewed and agree with the care provided by the resident/CNM during the visit including the patient's medical history, the resident's findings in the physical exam, patient's diagnosis and treatment plan. [facility]10-27-2021 Hospital Discharge instructions* Instructions* Adriana Friend [...] TO NEAREST EMERGENCY DEPARTMENT documented in this [facility] Work Phone: [phone]) 682-773109-30-2021 NoteHNO ID: [id number] Author: Ronni Boston PA-C Service: ? Author Type: Physician Ski Tow Operator Type: Progress Notes Filed: 03/10/2021 4:28 PM Note Text: Will close out of the actionable findings registry. Actionable Findings follow up status: Complete Ronni Boston PA-C March 10, 2021 4:28 [facility]09-28-2021 NoteHNO ID: [id number] Author: Ronni Boston PA-C Service: ? Author Type: Physician Ski Tow Operator Type: Progress Notes Filed: 03/10/2021 4:28 PM Note Text: Actionable Finding Review. This patient showed up on the actionable finding registry with an abnormal pelvic ultrasound 12/16/2020 and I am tasked to assist with this for the nez perce. Report: "5-6 cm complex ovarian lesions bilaterally. Appearance could reflect endometriomas. Complex cystic lesions cannot be excluded. Possibility of abscesses in the clinical setting of pelvic inflammatory disease in the differential. ?Clinical correlation is needed. Moderate complex pelvic free fluid reflecting either hemorrhagic or proteinaceous ascites A follow-up pelvic ultrasound in 6-12 weeks is recommended for the above Findings." Repeat pelvic ultrasound in 6-12 weeks was [...] Ronni Boston PA-C March 08, 2021 3:19 [facility]09-28-2021 NotePatient Outreach (URGDIS) KATIE ROBB ([id number]) 1990 F Date Time Provider Department 03/08/21 RONNI BOSTON During your visit today, we recorded the following information about you: Ronni Boston PA-C 03/10/2021 4:28 PM Signed Actionable Finding Review. This patient showed up on the actionable finding registry with an abnormal pelvic ultrasound 12/16/2020 and I am tasked to assist with this for the nez perce. Report: "5-6 cm complex ovarian lesions bilaterally. Appearance could reflect endometriomas. Complex cystic lesions cannot be excluded. Possibility of abscesses in the clinical setting of pelvic inflammatory disease in the differential. ?Clinical correlation is needed. Moderate complex pelvic free fluid reflecting either hemorrhagic or proteinaceous ascites A follow-up pelvic ultrasound in 6-12 weeks is recommended for the above Findings." Repeat pelvic ultrasound in 6-12 weeks was [...] RN - Fully Assessed Reason for Visit: Actionable [...] 12/16/2020 Encounter Status:Closed by RONNI BOSTON on 03/10/21[facility] 12-17-2020 NoteHNO ID: [id number] Author: Patti Fair RN Service: Care Management Author Type: Registered Nurse Type: Care Mgt Progress Note Filed: 12/17/2020 9:43 AM Note Text: CARE MANAGEMENT PROGRESS NOTE SERVICE DATE: 12/17/2020 SERVICE TIME: 939 LOS: 1 day Needs Prior to Discharge: To Be Determined This patient has been screened for Care Management Transitional Planning Services. At this time, it does not appear this patient will require transition planning services. Should this change, and the patient require transition planning services during this admission, please call [phone]. Patti Fair RN December 17, 2020 9:43 AM SIGNATURE: Patti Fair RN PATIENT NAME: Katie Robb DATE: December 17, 2020 TIME: 9:43 AM PAGER[facility]CONTA[phone] NoteHNO ID: [id number] Author: Niya Henriquez DO Service: Obstetrics Author [...] (Oral) Resp 18 Ht 170.2 cm (5' 7") Wt 72.6 kg (160 lb) LMP 12/05/2020 [...] December 17, 2020 TIME: 5:04 AM PAGER: [phone] CAR SALESPERSON Service Pager: For questions or concerns regarding: -Obstetric patients or consults Sun-Sun-5P, please page #[phone] -Gynecology patients or consults Sun-Sun-, please page #[phone] -Postoperative patients Sun-Sun-, please directly page the resident caring for the patient After 5P and on holidays and weekends, please [phone] NoteHNO ID: [id number] Author: RT Gretchen(R) Service: Radiology Author Type: Pilot Teacher Type: Progress Notes Filed: 12/16/2020 6:38 PM [...] BY: RT Gretchen(R) December 16, 2020 6:38 [facility] information availableWPome[facility] Work Phone: Evaluation note* Diagnosis Onset Date Resolution Status Conceived by in vitro fertilization acute Endometriosis acute acute Raynauds syndrome acute Supervision of high-risk [facility] Work Phone: evaluation note* Diagnosis Onset Date Resolution Status Conceived by in vitro fertilization acute acute Supervision of high-risk acute Conceived by in vitro fertilization acute Hypothyroid acute acute Supervision of high-risk acute Acute bronchitis resolved Conceived by in vitro fertilization acute Hypothyroid acute acute Supervision of high-risk [facility] Work Phone: evaluation note* Diagnosis Onset Date Resolution Status Conceived [...] Recurrent bacterial infection acute Supervision of high-risk [facility] Work Phone: evaluation note* Diagnosis Onset Date Resolution Status Hypothyroid [...] bacterial infection acute Supervision of high-risk acute [facility] bacterial infection acute Supervision of high-risk acute [facility] [...] hemorrhage acute Retained products of conception acute [facility] hemorrhage acute Retained products of conception acute [facility] Work Phone: Evaluation note* Diagnosis Bronchospasm- Primary Acute bronchospasm Flu vaccine need [facility] Diagnosis Onset Date Resolution Status Acute postoperative anemia d ue to greater than expected blood loss acute DIC (disseminated intravascular coagulation) acute Hypothyroid acute hemorrhage acute Retained products of conception acute Routine Follow-Up noneactive [facility] Work Phone: History and physical note Author Nat Gomez [facility] February 25, 2023 11:01am Note Date/Time February 25, 2023 11:01am [facility] Medical Records Department [address] [place] [id number] History & Physical Exam 02/25/23 1059 MR#: [id number] Acct: [id number] Name: KATIE ROBB Rep #:[id number] : 1990 33 From: Nat crum MD PCP: SHNANAN VAZQUEZ DO Status:REG S DC Location: [place] [address]1 HPI - General HPI Narrative KATIE ROBB, is a 33 F who presents with increasing vaginal bleeding, 3 weeks . she had a resolution of bleeding and then started back up again thelast few days, denies any fevers, passed some membranous tissue. [facility] Medical History Conceived by in vitro fertilization [...] 3-4 times per week duration: 30-45 minutes/day diego/druze: None seatbelt use: always do you feel [...] (Auto) 45.9 L, Lymph % (Auto) 34.3, [place] % (Auto) 7.4, Eos % (Auto) 10.9 [...] 10:08 EDT Reading Location ID and State: [address] [place] [address] , Service support , Assessment & Plan [...] VAZQUEZ DO; Dr. Nat Gomez MD~ Signed [facility] Work Phone: Instructions* Name Dates Details Instructions not documented -[facility] Work Phone: Reason for referral (narrative)No reason for referral information available[facility] [...] No February 25, 2023 6:57am Power of Leasing Director No February 6:57am Advance Directive Response Recorded Date/ Time Living Will No February 25, 2023 5:57am Power of Leasing Director No February 5:57am Advance Directive Response Recorded Date/ Time Do you have a Healthcare Power of Leasing Director? No October 05, 2024 10:43pm Chief Complaint [...] Date Segmental dysfunction of lumbar region F [facility] 2024 2:56pm Segmental dysfunction of thoracic region [...] Date Segmental dysfunction of lumbar region F [facility] 2024 2:56pm Segmental dysfunction of thoracic region July 22, 2024 2:56pm Segmental and somatic dysfunction of lum bar region July 22, 2024 2:56pm Conceived by in vitro fertilization Apri l 2024 2:42pm History of hemorrhage, romero tly October 07, 2024 2:42pm Infertility October [...] 21, 2024 2:48pm History of hemorrhage, romero tly October 21, 2024 2:48pm Infertility October [...] l 2024 2:42pm History of hemorrhage, romero tly October 07, 2024 2:42pm Infertility October [...] 05, 2024 11:39am History of hemorrhage, romero tly December 05, 2024 11:39am Infertility December 05, [...] 05, 2024 11:39am History of hemorrhage, romero tly December 05, 2024 11:39am Infertility December 05, [...] of thoracic region December 16, 2024 2:59pm Chief Complaint Admit Date VAG BLEED, PREG [...] m ADJUSTMENT December 16, 2024 2:59p m MRI December 25, 2024 6:36 pm Reason for Visit Admit Date Conceived by in vitro fertilization Apri l 2024 2:42pm History of hemorrhage, romero tly October 07, 2024 2:42pm Infertility October [...] 21, 2024 2:48pm History of hemorrhage, romero tly October 21, 2024 2:48pm Infertility October [...] 05, 2024 11:39am History of hemorrhage, romero tly December 05, 2024 11:39am Infertility December 05, 2024 11:3 9am December 05, 2024 11:3 9am Supervision of high-risk December 05, 2024 11:39am Segmental dysfunction of lumbar region J violeta2024 11:58am Segmental dysfunction of thoracic region December 11, 2024 11:58am Acute bronchitis December 11, 2024 2:51p m Segmental and somatic dysfunction of lum bar region December 16, 2024 2:59pm Segmental and somatic dysfunction of pel kadie region December 16, 2024 2:59pm Segmental dysfunction of thoracic region December 16, 2024 2:59pm Chief Complaint Admit Date VAG BLEED, PREG [...] m ADJUSTMENT December 16, 2024 2:59p m MRI December 25, 2024 6:36 pm MRI follow up December 25, 2024 11:4 7pm concern for uti January 01, 2025 8:22 am Reason for Visit Admit Date Conceived [...] 21, 2024 2:48pm History of hemorrhage, romero gily October 21, 2024 2:48pm Infertility October 21, [...] 05, 2024 11:39am History of hemorrhage, romero gily December 05, 2024 11:39am Infertility December 05, 2024 11:3 9am December 05, 2024 11:3 9am Supervision of high-risk December 05, 2024 11:39am Segmental dysfunction of lumbar region J violeta 2024 11:58am Segmental dysfunction of thoracic region December 11, 2024 11:58am Acute bronchitis December 11, 2024 2:51p m Segmental and somatic dysfunction of lum bar region December 16, 2024 2:59pm Segmental and somatic dysfunction of pel kadie region December 16, 2024 2:59pm Segmental dysfunction of thoracic region December 16, 2024 2:59pm Abnormal ultrasound December 25 6:36pm Dysuria January 01, 2025 8:22 am Chief Complaint Admit Date VAG BLEED, [...] m ADJUSTMENT December 16, 2024 2:59p m MRI December 25, 2024 6:36 pm MRI follow up December 25, 2024 11:4 7pm concern for uti January 01, 2025 8:22 am 22wk ob *nancy from 12/31January 06, 2025 2:04pm Reason for Visit Admit Date Conceived by in vitro fertilization Apri l 2024 2:42pm History of hemorrhage, romero tly October 07, 2024 2:42pm Infertility October [...] 21, 2024 2:48pm History of hemorrhage, romero tly October 21, 2024 2:48pm Infertility October [...] 05, 2024 11:39am History of hemorrhage, romero tly December 05, 2024 11:39am Infertility December 05, 2024 11:3 9am December 05, 2024 11:3 9am Supervision of high-risk December 05, 2024 11:39am Segmental dysfunction of lumbar region J [email or web address] 11:58am Segmental dysfunction of thoracic region December 11, 2024 11:58am Acute bronchitis December 11, 2024 2:51p m Segmental and somatic dysfunction of lum bar region December 16, 2024 2:59pm Segmental and somatic dysfunction of pel kadie region December 16, 2024 2:59pm Segmental dysfunction of thoracic region December 16, 2024 2:59pm Abnormal ultrasound December 25 6:36pm Dysuria January 01, 2025 8:22 am Abnormal ultrasound January 06 2:04pm Conceived by in vitro fertilization January 06, 2025 2:04pm Dysuria January 06, 2025 2:04 pm History of hemorrhage, romero carter January 06, 2025 2:04pm Infertility January 06, 2025 2:04 pm Placenta succenturiata January 06, 2025 2 :04pm January 06, 2025 2:04 pm Supervision of high-risk January 06, 2025 2:04pm Chief Complaint Admit Date VAG BLEED, PREG [...] m ADJUSTMENT December 16, 2024 2:59p m MRI December 25, 2024 6:36 pm MRI follow up December 25, 2024 11:4 7pm concern for uti January 01, 2025 8:22 am 22wk ob *nancy from 12/31January 06, 2025 2:04pm 25wk ob January 29, 2025 3: 11pm Reason for Visit Admit Date Conceived by [...] bar region December 16, 2024 2:59pm Segmental and somatic dysfunction of pel kadie region December 16, 2024 2:59pm Segmental dysfunction of thoracic region December 16, 2024 2:59pm Abnormal ultrasound December 25 6:36pm Dysuria January 01, 2025 8:22 am Abnormal ultrasound January 06 2:04pm Conceived by in vitro fertilization January 06, 2025 2:04pm Dysuria January 06, 2025 2:04 pm History of hemorrhage, romero tly January 06, 2025 2:04pm Infertility January 06, 2025 2:04 pm Placenta succenturiata January 06, 2025 2 :04pm January 06, 2025 2:04 pm Supervision of high-risk January 06, 2025 2:04pm Abnormal ultrasound January 29, 2 025 3:11pm Conceived by in vitro fertilization Augu st 2024 3:11pm Dysuria January 29, 2025 3: 11pm History of hemorrhage, romero tly January 29, 2025 3:11pm Infertility January 29, 2025 3: 11pm Placenta succenturiata January 29, 2025 3:11pm January 29, 2025 3: 11pm Segmental and somatic dysfunction of lum bar region January 29, 2025 3:11pm Segmental and somatic dysfunction of pel kadie region January 29, 2025 3:11pm Segmental dysfunction of lumbar region A ugust 2024 3:11pm Segmental dysfunction of thoracic region January 29, 2025 3:11pm Supervision of high-risk Augus t 2024 3:11pm Chief Complaint Admit Date 12wk ob November 04, 2024 3:15p m ADJUSTMENT November 26, 2024 9:56 am 16wk ob December 05, 2024 11:3 9am ADJUSTMENT December 11, 2024 11:58 am Cough December 11, 2024 2:51p m ADJUSTMENT December 16, 2024 2:59p m MRI December 25, 2024 6:36 pm MRI follow up December 25, 2024 11:4 7pm concern for uti January 01, 2025 8:22 am 22wk ob *nancy from 12/31January 06, 2025 2:04pm 25wk ob January 29, 2025 3: 11pm 28wk ob/glucose February 19, 2025 3:11pm Reason for Visit Admit Date Conceived by in vitro fertilization November 04, 2024 3:15pm History of hemorrhage, romero tly November 04, 2024 3:15pm Infertility November 04, 2024 3:15p m November 04, 2024 3:15p m Supervision of high-risk October 102024 3:15pm Conceived by in vitro fertilization December 05, 2024 11:39am History of hemorrhage, curren tly December 05, 2024 11:39am Infertility December 05, 2024 11:3 9am December 05, 2024 11:3 9am Supervision of high-risk December 05, 2024 11:39am Segmental dysfunction of lumbar region J violeta 2024 11:58am Segmental dysfunction of thoracic region December 11, 2024 11:58am Acute bronchitis December 11, 2024 2:51p m Segmental and somatic dysfunction of lum bar region December 16, 2024 2:59pm Segmental and somatic dysfunction of pel kadie region December 16, 2024 2:59pm Segmental dysfunction of thoracic region December 16, 2024 2:59pm Abnormal ultrasound December 25 6:36pm Dysuria January 01, 2025 8:22 am Abnormal ultrasound January 06 2:04pm Conceived by in vitro fertilization January 06, 2025 2:04pm Dysuria January 06, 2025 2:04 pm History of hemorrhage, curren tly January 06, 2025 2:04pm Infertility January 06, 2025 2:04 pm Placenta succenturiata January 06, 2025 2 :04pm January 06, 2025 2:04 pm Supervision of high-risk January 06, 2025 2:04pm Abnormal ultrasound January 29, 2 025 3:11pm Conceived by in vitro fertilization 2024 3:11pm Dysuria January 29, 2025 3: 11pm History of hemorrhage, curren tly January 29, 2025 3:11pm Infertility January 29, 2025 3: 11pm Placenta succenturiata January 29, 2025 3:11pm January 29, 2025 3: 11pm Segmental and somatic dysfunction of lum bar region January 29, 2025 3:11pm Segmental and somatic dysfunction of pel kadie region January 29, 2025 3:11pm Segmental dysfunction of lumbar region A ugust 2024 3:11pm Segmental dysfunction of thoracic region January 29, 2025 3:11pm Supervision of high-risk Augus t 2024 3:11pm Abnormal ultrasound February 3:11pm Conceived by in vitro fertilization [facility] 2024 3:11pm Dysuria February 19, 2025 3:11pm History of hemorrhage, romero carter February 19, 2025 3:11pm Infertility February 19, 2025 3:11pm Placenta succenturiata February 19, 2 025 3:11pm February 19, 2025 3:11pm Segmental and somatic dysfunction of lum bar region February 19, 2025 3:11pm Segmental and somatic dysfunction of pel kadie region February 19, 2025 3:11pm Segmental dysfunction of lumbar region S eptember 2024 3:11pm Segmental dysfunction of thoracic region February 19, 2025 3:11pm Supervision of high-risk [facility] 2024 3:11pm Chief Complaint Admit Date ADJUSTMENT November 26, 2024 9:56 am 16wk ob December 05, 2024 11:3 9am ADJUSTMENT December 11, 2024 11:58 am Cough December 11, 2024 2:51p m ADJUSTMENT December 16, 2024 2:59p m MRI December 25, 2024 6:36 pm MRI follow up December 25, 2024 11:4 7pm concern for uti January 01, 2025 8:22 am 22wk ob *nancy from 12/31January 06, 2025 2:04pm 25wk ob January 29, 2025 3: 11pm 28wk ob/glucose February 19, 2025 3:11pm 30wk ob March 05, 2025 3:06pm Reason for Visit Admit Date Conceived by in vitro fertilization December 05, 2024 11:39am History of hemorrhage, romero tly December 05, 2024 11:39am Infertility December 05, 2024 11:3 9am December 05, 2024 11:3 9am Supervision of high-risk December 05, 2024 11:39am Segmental dysfunction of lumbar region J violeta 2024 11:58am Segmental dysfunction of thoracic region December 11, 2024 11:58am Acute bronchitis December 11, 2024 2:51p m Segmental and somatic dysfunction of lum bar region December 16, 2024 2:59pm Segmental and somatic dysfunction of pel kadie region December 16, 2024 2:59pm Segmental dysfunction of thoracic region December 16, 2024 2:59pm Abnormal ultrasound December 25 6:36pm Dysuria January 01, 2025 8:22 am Abnormal ultrasound January 06 2:04pm Conceived by in vitro fertilization January 06, 2025 2:04pm Dysuria January 06, 2025 2:04 pm History of hemorrhage, curren tly January 06, 2025 2:04pm Infertility January 06, 2025 2:04 pm Placenta succenturiata January 06, 2025 2 :04pm January 06, 2025 2:04 pm Supervision of high-risk January 06, 2025 2:04pm Abnormal ultrasound January 29, 2 025 3:11pm Conceived by in vitro fertilization Janu 2024 3:11pm Dysuria January 29, 2025 3: 11pm History of hemorrhage, curren tly January 29, 2025 3:11pm Infertility January 29, 2025 3: 11pm Placenta succenturiata January 29, 2025 3:11pm January 29, 2025 3: 11pm Segmental and somatic dysfunction of lum bar region January 29, 2025 3:11pm Segmental and somatic dysfunction of pel kadie region January 29, 2025 3:11pm Segmental dysfunction of lumbar region A ugust 2024 3:11pm Segmental dysfunction of thoracic region January 29, 2025 3:11pm Supervision of high-risk Augus t 2024 3:11pm Abnormal ultrasound February 3:11pm Conceived by in vitro fertilization Sept ember 2024 3:11pm History of hemorrhage, curren tly February 19, 2025 3:11pm Infertility February 19, 2025 3:11pm Placenta succenturiata February 19, 2 025 3:11pm February 19, 2025 3:11pm Segmental and somatic dysfunction of lum bar region February 19, 2025 3:11pm Segmental and somatic dysfunction of pel kadie region February 19, 2025 3:11pm Segmental dysfunction of lumbar region S eptember 2024 3:11pm Segmental dysfunction of thoracic region February 19, 2025 3:11pm Supervision of high-risk [facility] 2024 3:11pm Abnormal ultrasound February 3:06pm 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 Feb 3:06pm Conceived by in vitro fertilization Feb [facility]2024 3:06pm Dysuria March 05, 2025 3:06pm History of hemorrhage, romero tly March 05, 2025 3:06pm Infertility March 05, 2025 3:06pm Placenta succenturiata March 05, 2 025 3:06pm March 05, 2025 3:06pm Segmental and somatic dysfunction of lum bar region March 05, 2025 3:06pm Segmental and somatic dysfunction of pel kadie region March 05, 2025 3:06pm Segmental dysfunction of lumbar region S eptemb2024 3:06pm Segmental dysfunction of thoracic region March 05, 2025 3:06pm Supervision of high-risk [facility]2024 3:06pm Chief Complaint Admit Date ADJUSTMENT November 26, 2024 9:56 am 16wk ob December 05, 2024 11:3 9am ADJUSTMENT December 11, 2024 11:58 am Cough December 11, 2024 2:51p m ADJUSTMENT December 16, 2024 2:59p m MRI December 25, 2024 6:36 pm MRI follow up December 25, 2024 11:4 7pm concern for uti January 01, 2025 8:22 am 22wk ob *nancy from 12/31January 06, 2025 2:04pm 25wk ob January 29, 2025 3: 11pm 28wk ob/glucose February 19, 2025 3:11pm 30wk ob March 05, 2025 3:06pm 32wk1d ob March 17, 2025 10 :19am Reason for Visit Admit Date Conceived by in vitro fertilization December 05, 2024 11:39am History of hemorrhage, curren tly December 05, 2024 11:39am Infertility December 05, 2024 11:3 9am December 05, 2024 11:3 9am Supervision of high-risk December 05, 2024 11:39am Segmental dysfunction of lumbar region J violeta 2024 11:58am Segmental dysfunction of thoracic region December 11, 2024 11:58am Acute bronchitis December 11, 2024 2:51p m Segmental and somatic dysfunction of lum bar region December 16, 2024 2:59pm Segmental and somatic dysfunction of pel kadie region December 16, 2024 2:59pm Segmental dysfunction of thoracic region December 16, 2024 2:59pm Abnormal ultrasound December 25 6:36pm Dysuria January 01, 2025 8:22 am Abnormal ultrasound January 06 2:04pm Conceived by in vitro fertilization January 06, 2025 2:04pm Dysuria January 06, 2025 2:04 pm History of hemorrhage, curren tly January 06, 2025 2:04pm Infertility January 06, 2025 2:04 pm Placenta succenturiata January 06, 2025 2 :04pm January 06, 2025 2:04 pm Supervision of high-risk January 06, 2025 2:04pm Abnormal ultrasound January 29, 2 025 3:11pm Conceived by in vitro fertilization Janu st 2024 3:11pm Dysuria January 29, 2025 3: 11pm History of hemorrhage, curren tly January 29, 2025 3:11pm Infertility January 29, 2025 3: 11pm Placenta succenturiata January 29, 2025 3:11pm January 29, 2025 3: 11pm Segmental and somatic dysfunction of lum bar region January 29, 2025 3:11pm Segmental and somatic dysfunction of pel kadie region January 29, 2025 3:11pm Segmental dysfunction of lumbar region A ugust 2024 3:11pm Segmental dysfunction of thoracic region January 29, 2025 3:11pm Supervision of high-risk Augus t 2024 3:11pm Abnormal ultrasound February 3:11pm Conceived by in vitro fertilization Sept ember 2024 3:11pm History of hemorrhage, curren tly February 19, 2025 3:11pm Infertility February 19, 2025 3:11pm Placenta succenturiata February 19, 2 025 3:11pm February 19, 2025 3:11pm Segmental and somatic dysfunction of lum bar region February 19, 2025 3:11pm Segmental and somatic dysfunction of pel kadie region February 19, 2025 3:11pm Segmental dysfunction of lumbar region S eptember 2024 3:11pm Segmental dysfunction of thoracic region February 19, 2025 3:11pm Supervision of high-risk [facility] 2024 3:11pm Abnormal ultrasound February 3:06pm 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 Feb 3:06pm Conceived by in vitro fertilization Feb 3:06pm Dysuria March 05, 2025 3:06pm History of hemorrhage, curren tly March 05, 2025 3:06pm Infertility March 05, 2025 3:06pm Placenta succenturiata March 05, 2 025 3:06pm March 05, 2025 3:06pm Segmental and somatic dysfunction of lum bar region March 05, 2025 3:06pm Segmental and somatic dysfunction of pel kadie region March 05, 2025 3:06pm Segmental dysfunction of lumbar region S [id number] 3:06pm Segmental dysfunction of thoracic region March 05, 2025 3:06pm Supervision of high-risk [id number] 3:06pm Abnormal ultrasound March 17, 2 025 10:19am 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 Maro neena 2024 10:19am Conceived by in vitro fertilization 2024 10:19am Dysuria March 17, 2025 10 :19am History of hemorrhage, curren tly March 17, 2025 10:19am Infertility March 17, 2025 10 :19am Placenta succenturiata March 17, 2025 10:19am March 17, 2025 10 :19am Segmental and somatic dysfunction of lum bar region March 17, 2025 10:19am Segmental and somatic dysfunction of pel kadie region March 17, 2025 10:19am Segmental dysfunction of lumbar region O ctober 2024 10:19am Segmental dysfunction of thoracic region March 17, 2025 10:19am Supervision of high-risk Octob er 2024 10:19am Reason for Referral Specialty Diagnoses / Procedures Referred By Contac t Referred To Contact Radiology Diagnoses Bronchospasm Procedures Complete PFT study Deejay Glasgow PA-C [address] [place] [address] [facility] [address] [place] [address] Referral ID Status Reason Start Date Expiration Date V isits Requested Visits Authorized [id number] Authorized 03/15/2023 09/11/2023 1 1 Additional Source Comments INFORMATION SOURCE (unrecogn ized section and content) DATE CREATED AUTHOR 11/29/2017 [facility] DATE CREATED AUTHOR AUTHOR'S ORGANIZ ATION 12/28/2020 [facility] DATE CREATED AUTHOR AUTHOR'S ORGANIZ ATION 08/09/2021 [facility] DATE CREATED AUTHOR AUTHOR'S ORGANIZ ATION 08/18/2021 [facility] DATE CREATED AUTHOR AUTHOR'S ORGANIZ ATION 10/28/2021 [facility] DATE CREATED AUTHOR AUTHOR'S ORGANIZ ATION 04/19/2022 [facility] DATE CREATED AUTHOR AUTHOR'S ORGANIZ ATION 08/09/2022 [facility] DATE CREATED AUTHOR AUTHOR'S ORGANIZ ATION 07/28/2023 [facility] DATE CREATED AUTHOR AUTHOR'S ORGANIZ ATION 04/16/2025 [facility] DATE CREATED AUTHOR AUTHOR'S ORGANIZ ATION 04/22/2025 [facility] Care Teams (unrecognized sec tion and [...] Valera MD Attending Provider, Referring Provider Active 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 Paola Weeks DO Attending Provider Activ e Team Status: Active Member Role Status Hawa Vazquez Primary Care Provider, Attending Prov ider Active Team Status: Inactive Member Role Status Hawa Vazquez Primary Care Provider Active Dr. Christina [...] Role Status Hawa PHELPS Primary Care Provider, Attending Provider Active Team Status: Inactive Member Role Status Hawa PHELPS Primary Care Provider, Referring Provider Active Julia Chavez WHEEL MILL OPERATOR, WHEEL MILL OPERATOR-C Attending Provider Active Team Status: Inactive Member [...] Status Hawa PHELPS Primary Care Provider Active Julia Chavez WHEEL MILL OPERATOR, WHEEL MILL OPERATOR-C Attending Provider, Referring Provider Active Team Status: Inactive Member Role Status Hawa Shannan Vazquez LENIN Referring Provider Active Dr. Chris Lazaro MD Attending Provider Active SHANNAN VAZQUEZ DO Primary Care Provider Active Team Status: Inactive Member Role Status Hawa Shannan Vazquez LENIN Referring Provider Active Niya Armstrong CNM Attending Provider Active SHANNAN VAZQUEZ DO Primary Care Provider Active Team Status: Inactive Member Role Status Hawa VAZQUEZ DO Primary Care Provider, Referring Provider Active Niya Armstrong CNM Attending Provider Active Team Status: Inactive Member Role Status Dates SHANNAN VAZQUEZ , DO Primary Care Provider, Referring Provider Active Dr. Paola Weeks , DO Attending Provider Activ e Team Status: Active Member Role Status Hawa VAZQUEZ , DO Primary Care Provider Active Dr. Ronni Larkin MD Attending Provider Active Team Status: Inactive Member Role Status Dates Dr. Nat Gomez MD Attending Provider, Referr ing Provider Active SHANNAN VAZQUEZ , DO Primary Care Provider Active Team Status: [...] VAZQUEZ DO Primary Care Provider Active Dr. Paola [...] Active Member Role Status Dates SHANNAN VAZQUEZ , DO Primary Care Provider Active Dr. Sampson De León , DO Emergency Provider Active Dr. Nat Gomez MD Attending Provider Active Team Status: Active Member Role Status Dates SHANNAN VAZQUEZ , DO Primary Care Provider Active Dr. Sampson De León , DO Emergency Provider Active Dr. Nat Gomez MD Admit Provider, Other Prov ider Active Dr. Valentine Urbina MD Attending Provider, Other Provid er Active Team Status: Active Member Role Status Dates SHANNAN VAZQUEZ , DO Primary Care Provider Active Dr. Sampson De León , DO Emergency Provider Active Dr. Nat Gomze MD Admit Provid er, Attending Provider, Other Provider Active Dr. Valentine Urbina MD Other Provider Active Team Status: Active Member Role Status Hawa VAZQUEZ , DO Primary Care Provider Active Dr. Sampson De León , DO Emergency Provider Active Dr. Nat Gomez MD Admit Provider, Other Prov ider Active Dr. Nidhi Haro MD Attending Provider, Other Prov ider Active Team Status: Active Member Role Status Hawa VAZQUEZ , DO Primary Care Provider Active Dr. Sampson [...] Dr. 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 Sampson De León DO Emergency Provider Active Dr. Nat Gomez MD Attending Pr ovider, Referring Provider, Other Provider Active Team Status: Active Member Role Status Dates SHANNAN VAZQUEZ DO Primary Care Provider Active Dr. Sampson De León DO Emergency Provider Active Dr. Nat Gomez MD Admit Provid er, Referring Provider, Other Provider Active Dr. Valentine Urbina MD Attending Provider, Other Provid er Active Team Status: Active Member Role Status Dates Dr. Liv Matta MD Primary Care Provider Active Team [...] 05, 2024 End: October 06, 2024 Dr. Liv Matta MD Primary Care Provider Active Start: October 05, 2024 End: October 06, 2024 Team Status: Inactive Member Role Status Dates Nikko Guerrero MD Attending Provider Active Star t: October 05, 2024 End: October 06, 2024 Nikko Guerrero MD Emergency Provider Active Star t: October 05, 2024 End: October 06, 2024 Dr. Liv Matta MD Primary Care Provider Active Start: October 05, 2024 End: October 06, 2024 Team Status: Inactive Member Role Status Dates SHANNAN VAZQUEZ DO Referring Provider Active Start: October 07, 2024 End: October 07, 2024 Niya Armstrong CNM Attending Provider Active S tart: October 07, 2024 End: October 07, 2024 Dr. Liv Matta MD Primary Care Provider Active Start: October 07, 2024 End: October 07, 2024 Team Status: Inactive Member Role Status Dates Dr. Liv Matta MD Primary Care Provider Active Start: October 07, 2024 End: October 07, 2024 Niya Armstrong CNM Attending Provider Active S tart: October 07, 2024 End: October 07, 2024 Niya Armstrong CNM Referring Provider Active S tart: October 07, 2024 End: October 07, 2024 Team Status: Inactive Member Role Status Dates Dr. Liv Matta MD Primary Care Provider Active Start: October 21, 2024 End: October 21, 2024 Dr. Liv Matta MD Referring Provider Active Start: October 21, 2024 End: October 21, 2024 Dr. Nat Gomez MD Attending Provider Active Start: October 21, 2024 End: October 21, 2024 Team Status: Active Member Role Status Dates Dr. Liv Matta MD Primary Care Provider Active Start: October 21, 2024 Dr. Nat Gomez MD Attending Provider Active Start: October 21, 2024 Dr. Nat Gomez MD Referring Provider Active Start: October 21, 2024 Team Status: Inactive Member Role Status Dates Dr. Liv Matta MD Primary Care Provider Active Start: October 21, 2024 End: October 21, 2024 Dr. Nat Gomez MD Attending Provider Active Start: October 21, 2024 End: October 21, 2024 Dr. Nat Gomez MD Referring Provider Active Start: October 21, 2024 End: October 21, 2024 Team Status: Inactive Member Role Status Dates Dr. Liv Matta MD Primary Care Provider Active Start: November 04, 2024 End: November 04, 2024 Dr. Liv Matta MD Referring Provider Active Start: November 04, 2024 End: November 04, 2024 Niya Armstrong CNM Attending Provider Active S tart: November 04, 2024 End: November 04, 2024 Team Status: Inactive Member Role Status Dates Dr. Liv Matta MD Primary Care Provider Active Start: November 26, 2024 End: November 26, 2024 Dr. Liv Matta MD Referring Provider Active Start: November 26, 2024 End: November 26, 2024 Dr. Aruna Gomez DC Attending Provider Active S tart: November 26, 2024 End: November 26, 2024 Team Status: Active Member Role/Relationship Status Dates Dr. Liv Matta MD Primary Care Provider Active Team Status: Inactive Member Role/Relationship Status Dates Nikko Guerrero MD Attending Provider Active Star t: October 05, 2024 End: October 06, 2024 Nikko Guerrero MD Emergency Provider Active Star t: October 05, 2024 End: October 06, 2024 Dr. Liv Matta MD Primary Care Provider Active Start: October 05, 2024 End: October 06, 2024 Team Status: Inactive Member Role/Relationship Status Dates SHANNAN VAZQUEZ DO Referring Provider Active Start: October 07, 2024 End: October 07, 2024 Niya Armstrong CNM Attending Provider Active S tart: October 07, 2024 End: October 07, 2024 Dr. Liv Matta MD Primary Care Provider Active Start: October 07, 2024 End: October 07, 2024 Team Status: Inactive Member Role/Relationship Status Dates Dr. Liv Matta MD Primary Care Provider Active Start: October 07, 2024 End: October 07, 2024 Niya Armstrong CNM Attending Provider Active S tart: October 07, 2024 End: October 07, 2024 Niya Armstrong CNM Referring Provider Active S tart: October 07, 2024 End: October 07, 2024 Team Status: Inactive Member Role/Relationship Status Dates Dr. Liv Matta MD Primary Care Provider Active Start: October 21, 2024 End: October 21, 2024 Dr. Liv Matta MD Referring Provider Active Start: October 21, 2024 End: October 21, 2024 Dr. Nat Gomez MD Attending Provider Active Start: October 21, 2024 End: October 21, 2024 Team Status: Inactive Member Role/Relationship Status Dates Dr. Liv Matta MD Primary Care Provider Active Start: October 21, 2024 End: October 21, 2024 Dr. Nat Gomez MD Attending Provider Active Start: October 21, 2024 End: October 21, 2024 Dr. Nat Gomez MD Referring Provider Active Start: October 21, 2024 End: October 21, 2024 Team Status: Inactive Member Role/Relationship Status Dates Dr. Liv Matta MD Primary Care Provider Active Start: November 04, 2024 End: November 04, 2024 Dr. Liv Matta MD Referring Provider Active Start: November 04, 2024 End: November 04, 2024 Niya Armstrong CNM Attending Provider Active S tart: November 04, 2024 End: November 04, 2024 Team Status: Inactive Member Role/Relationship Status Dates Dr. Liv Matat MD Primary Care Provider Active Start: November 26, 2024 End: November 26, 2024 Dr. Liv Matta MD Referring Provider Active Start: November 26, 2024 End: November 26, 2024 Dr. Aruna Gomez DC Attending Provider Active S tart: November 26, 2024 End: November 26, 2024 Team Status: Inactive Member Role/Relationship Status Dates Dr. Liv Matta MD Primary Care Provider Active Start: December 05, 2024 End: December 05, 2024 Dr. Liv Matta MD Referring Provider Active Start: December 05, 2024 End: December 05, 2024 Nick Cordon CNM Attending Provider Active Start: December 05, 2024 End: December 05, 2024 Team Status: Inactive Member Role/Relationship Status Dates Dr. Liv Matta MD Primary Care Provider Active Start: December 11, 2024 End: December 11, 2024 Dr. Liv Matta MD Referring Provider Active Start: December 11, 2024 End: December 11, 2024 Dr. Aruna Gomez DC Attending Provider Active S tart: December 11, 2024 End: December 11, 2024 Team Status: Inactive Member Role/Relationship Status Dates Dr. Liv Matta MD Primary Care Provider Active Start: December 11, 2024 End: December 11, 2024 Dr. Liv Matta MD Referring Provider Active Start: December 11, 2024 End: December 11, 2024 Bharathi HILLMAN, PA Attending Provider Active Sta rt: December 11, 2024 End: December 11, 2024 Team Status: Inactive Member Role/Relationship Status Dates Dr. Liv Matta MD Primary Care Provider Active Start: December 16, 2024 End: December 16, 2024 Dr. Liv Matta MD Referring Provider Active Start: December 16, 2024 End: December 16, 2024 Dr. Aruna Gomez , MARCE Attending Provider Active S tart: December 16, 2024 End: December 16, 2024 Team Status: Inactive Member Role/Relationship Status Dates Dr. Liv Matta MD Primary Care Provider Active Start: December 25, 2024 End: December 25, 2024 Dr. Paola Weeks , DO Attending Provider Activ e Start: December 25, 2024 End: December 25, 2024 Dr. Paola Weeks , DO Referring Provider Activ e Start: December 25, 2024 End: December 25, 2024 Team Status: Active Member Role/Relationship Status Dates Dr. Liv Matta MD Primary Care Provider Active Start: December 25, 2024 Dr. Paola Weeks , Attending Provider Activ e Start: December 25, 2024 Dr. Paola Weeks DO Referring Provider Activ e Start: December 25, 2024 Dr. Paola Weeks , Other Provider Active Start: December 25, 2024 Team Status: Inactive Member Role/Relationship Status Dates Dr. Liv Matta MD Primary Care Provider Active Start: January 01, 2025 End: January 01, 2025 Dr. Liv Matta MD Referring Provider Active Start: January 01, 2025 End: January 01, 2025 Bharathi HILLMAN, PA Attending Provider Active Sta rt: January 01, 2025 End: January 01, 2025 Team Status: Inactive Member Role/Relationship Status Dates Dr. Liv Matta MD Primary Care Provider Active Start: January 01, 2025 End: January 01, 2025 Bharathi HILLMAN, PA Attending Provider Active Sta rt: January 01, 2025 End: January 01, 2025 Bharathi HILLMAN, PA Referring Provider Active Sta rt: January 01, 2025 End: January 01, 2025 Team Status: Active Member Role/Relationship Status Dates Dr. Liv Matta MD Primary Care Provider Active Start: January 06, 2025 Dr. Liv Matta MD Referring Provider Active Start: January 06, 2025 Dr. Paola Weeks , DO Attending Provider Activ e Start: January 06, 2025 Team Status: Inactive Member Role/Relationship Status Dates Dr. Liv Matta MD Primary Care Provider Active Start: January 06, 2025 End: January 06, 2025 Dr. Liv Matta MD Referring Provider Active Start: January 06, 2025 End: January 06, 2025 Dr. Paola Weeks DO Attending Provider Activ e Start: January 06, 2025 End: January 06, 2025 Team Status: Inactive Member Role/Relationship Status Dates Dr. Liv Matta MD Primary Care Provider Active Start: January 29, 2025 End: January 29, 2025 Dr. Liv Matta MD Referring Provider Active Start: January 29, 2025 End: January 29, 2025 Dr. Nat Gomez MD Attending Provider Active Start: January 29, 2025 End: January 29, 2025 Team Status: Inactive Member Role/Relationship Status Dates Dr. Liv Matta MD Primary Care Provider Active Start: November 04, 2024 End: November 04, 2024 Dr. Liv Matta MD Referring Provider Active Start: November 04, 2024 End: November 04, 2024 Niya Armstrong CNM Attending Provider Active S tart: November 04, 2024 End: November 04, 2024 Team Status: Inactive Member Role/Relationship Status Dates Dr. Liv Matta MD Primary Care Provider Active Start: November 26, 2024 End: November 26, 2024 Dr. Liv Matta MD Referring Provider Active Start: November 26, 2024 End: November 26, 2024 Dr. Aruna Gomez DC Attending Provider Active S tart: November 26, 2024 End: November 26, 2024 Team Status: Inactive Member Role/Relationship Status Dates Dr. Liv Matta MD Primary Care Provider Active Start: December 05, 2024 End: December 05, 2024 Dr. Liv Matta MD Referring Provider Active Start: December 05, 2024 End: December 05, 2024 Nick Cordon CNM Attending Provider Active Start: December 05, 2024 End: December 05, 2024 Team Status: Inactive Member Role/Relationship Status Dates Dr. Liv Matta MD Primary Care Provider Active Start: December 11, 2024 End: December 11, 2024 Dr. Liv Matta MD Referring Provider Active Start: December 11, 2024 End: December 11, 2024 Dr. Aruna Gomez DC Attending Provider Active S tart: December 11, 2024 End: December 11, 2024 Team Status: Inactive Member Role/Relationship Status Dates Dr. Liv Matta MD Primary Care Provider Active Start: December 11, 2024 End: December 11, 2024 Dr. Liv Matta MD Referring Provider Active Start: December 11, 2024 End: December 11, 2024 Bharathi HILLMAN PA Attending Provider Active Sta rt: December 11, 2024 End: December 11, 2024 Team Status: Inactive Member Role/Relationship Status Dates Dr. Liv Matta MD Primary Care Provider Active Start: December 16, 2024 End: December 16, 2024 Dr. Liv Matta MD Referring Provider Active Start: December 16, 2024 End: December 16, 2024 Dr. Aruna Gomez DC Attending Provider Active S tart: December 16, 2024 End: December 16, 2024 Team Status: Inactive Member Role/Relationship Status Dates Dr. Liv Matta MD Primary Care Provider Active Start: December 25, 2024 End: December 25, 2024 Dr. Paola Weeks , DO Attending Provider Activ e Start: December 25, 2024 End: December 25, 2024 Dr. Paola Weeks DO Referring Provider Activ e Start: December 25, 2024 End: December 25, 2024 Team Status: Active Member Role/Relationship Status Dates Dr. Liv Matta MD Primary Care Provider Active Start: December 25, 2024 Dr. Paola Weeks DO Attending Provider Activ e Start: December 25, 2024 Dr. Paola Weeks DO Referring Provider Activ e Start: December 25, 2024 Dr. Paola Weeks DO Other Provider Active Start: December 25, 2024 Team Status: Inactive Member Role/Relationship Status Dates Dr. Liv Matta MD Primary Care Provider Active Start: January 01, 2025 End: January 01, 2025 Dr. Liv Matta MD Referring Provider Active Start: January 01, 2025 End: January 01, 2025 RAFY Galvan Attending Provider Active Sta rt: January 01, 2025 End: January 01, 2025 Team Status: Inactive Member Role/Relationship Status Dates Dr. Liv Matta MD Primary Care Provider Active Start: January 01, 2025 End: January 01, 2025 Bharathi HILLMAN PA Attending Provider Active Sta rt: January 01, 2025 End: January 01, 2025 RAFY Galvan Referring Provider Active Sta rt: January 01, 2025 End: January 01, 2025 Team Status: Inactive Member Role/Relationship Status Dates Dr. Liv Matta MD Primary Care Provider Active Start: January 06, 2025 End: January 06, 2025 Dr. Liv Matta MD Referring Provider Active Start: January 06, 2025 End: January 06, 2025 Dr. Paola Weeks DO Attending Provider Activ e Start: January 06, 2025 End: January 06, 2025 Team Status: Inactive Member Role/Relationship Status Dates Dr. Liv Matta MD Primary Care Provider Active Start: January 29, 2025 End: January 29, 2025 Dr. Liv Matta MD Referring Provider Active Start: January 29, 2025 End: January 29, 2025 Dr. Nat Gomez MD Attending Provider Active Start: January 29, 2025 End: January 29, 2025 Team Status: Inactive Member Role/Relationship Status Dates Dr. Liv Matta MD Primary Care Provider Active Start: February 19, 2025 End: February 19, 2025 Dr. Liv Matta MD Referring Provider Active Start: February 19, 2025 End: February 19, 2025 Julia Chavez WHEEL MILL OPERATOR, WHEEL MILL OPERATOR-C Attending Provider Active Start: February 19, 2025 End: February 19, 2025 Team Status: Active Member Role/Relationship Status Dates Dr. Liv Matta MD Primary Care Provider Active Start: February 19, 2025 Dr. Paola Weeks DO Attending Provider Active Start: February Dr. Paola Weeks DO Referring Provider Active Start: February Team Status: Active Member Role/Relationship Status Dates Dr. Liv Matta MD Primary care physician Active Team Status: Inactive Member Role/Relationship Status Dates Dr. Liv Matta MD Primary care physician Active Start: November 26, 2024 End: November 26, 2024 Dr. Liv Matta MD Referring Provider Active Start: November 26, 2024 End: November 26, 2024 Dr. Aruna Gomez DC Attending physician Active Start: November 26, 2024 End: November 26, 2024 Team Status: Inactive Member Role/Relationship Status Dates Dr. Liv Matta MD Primary care physician Active Start: December 05, 2024 End: December 05, 2024 Dr. Liv Matta MD Referring Provider Active Start: December 05, 2024 End: December 05, 2024 Nick Cordon CNM Attending physician Active Start: December 05, 2024 End: December 05, 2024 Team Status: Inactive Member Role/Relationship Status Dates Dr. Liv Matta MD Primary care physician Active Start: December 11, 2024 End: December 11, 2024 Dr. Liv Matta MD Referring Provider Active Start: December 11, 2024 End: December 11, 2024 Dr. Aruna Gomez DC Attending physician Active Start: December 11, 2024 End: December 11, 2024 Team Status: Inactive Member Role/Relationship Status Dates Dr. Liv Matta MD Primary care physician Active Start: December 11, 2024 End: December 11, 2024 Dr. Liv Matta MD Referring Provider Active Start: December 11, 2024 End: December 11, 2024 Bharathi HILLMAN, PA Attending physician Active St art: December 11, 2024 End: December 11, 2024 Team Status: Inactive Member Role/Relationship Status Dates Dr. Liv Matta MD Primary care physician Active Start: December 16, 2024 End: December 16, 2024 Dr. Liv Matta MD Referring Provider Active Start: December 16, 2024 End: December 16, 2024 Dr. Aruna Gomez DC Attending physician Active Start: December 16, 2024 End: December 16, 2024 Team Status: Inactive Member Role/Relationship Status Dates Dr. Liv Matta MD Primary care physician Active Start: December 25, 2024 End: December 25, 2024 Dr. Paola Weeks , DO Attending physician Acti ve Start: December 25, 2024 End: December 25, 2024 Dr. Paola Weeks , DO Referring Provider Activ e Start: December 25, 2024 End: December 25, 2024 Team Status: Active Member Role/Relationship Status Dates Dr. Liv Matta MD Primary care physician Active Start: December 25, 2024 Dr. Paola Weeks , DO Attending physician Acti ve Start: December 25, 2024 Dr. Paola Weeks , DO Referring Provider Activ e Start: December 25, 2024 Dr. Paola Weeks , DO Nurse Practitioner Activ e Start: December 25, 2024 Team Status: Inactive Member Role/Relationship Status Dates Dr. Liv Matta MD Primary care physician Active Start: January 01, 2025 End: January 01, 2025 Dr. Liv Matta MD Referring Provider Active Start: January 01, 2025 End: January 01, 2025 RAFY Galvan Attending physician Active St art: January 01, 2025 End: January 01, 2025 Team Status: Inactive Member Role/Relationship Status Dates Dr. Liv Matta MD Primary care physician Active Start: January 01, 2025 End: January 01, 2025 RAFY Galvan Attending physician Active St art: January 01, 2025 End: January 01, 2025 RAFY Galvan Referring Provider Active Sta rt: January 01, 2025 End: January 01, 2025 Team Status: Inactive Member Role/Relationship Status Dates Dr. Liv Matta MD Primary care physician Active Start: January 06, 2025 End: January 06, 2025 Dr. Liv Matta MD Referring Provider Active Start: January 06, 2025 End: January 06, 2025 Dr. Paola Weeks , DO Attending physician Acti ve Start: January 06, 2025 End: January 06, 2025 Team Status: Inactive Member Role/Relationship Status Dates Dr. Liv Matta MD Primary care physician Active Start: January 29, 2025 End: January 29, 2025 Dr. Liv Matta MD Referring Provider Active Start: January 29, 2025 End: January 29, 2025 Dr. Nat Gomez MD Attending physician Active Start: January 29, 2025 End: January 29, 2025 Team Status: Inactive Member Role/Relationship Status Dates Dr. Liv Matta MD Primary care physician Active Start: February 19, 2025 End: February 19, 2025 Dr. Liv Matta MD Referring Provider Active Start: February 19, 2025 End: February 19, 2025 Julia Chavez NP, WHEEL MILL OPERATOR-C Attending physician Active Start: February 19, 2025 End: February 19, 2025 Team Status: Inactive Member Role/Relationship Status Dates Dr. Liv Matta MD Primary care physician Active Start: February 19, 2025 End: February 19, 2025 Dr. Paola Weeks DO Attending physician Active Start: February End: February 19, 2025 Dr. Paola Weeks DO Referring Provider Active Start: February End: February 19, 2025 Team Status: Inactive Member Role/Relationship Status Dates Dr. Liv Matta MD Primary care physician Active Start: March 05, 2025 End: March 05, 2025 Dr. Liv Matta MD Referring Provider Active Start: March 05, 2025 End: March 05, 2025 Niya Armstrong CNM Attending physician Active Start: March 05, 2025 End: March 05, 2025 Team Status: Inactive Member Role/Relationship Status Dates Dr. Liv Matta MD Primary care physician Active Start: March 17, 2025 End: March 17, 2025 Dr. Liv Matta MD Referring Provider Active Start: March 17, 2025 End: March 17, 2025 Julia Chavez NP, WHEEL MILL OPERATOR-C Attending physician Active Start: March 17, 2025 End: March 17, 2025 Goals (unrecognized section and content) Goals may [...] BE BASED ON THE PRIMARY CLINICAL RECORDS. [employer] provides no warranty or guarantee of the accuracy or completeness of information in this document.
[2025-04-24 18:46] LABS: Hematocrit 35.1 % (37-47); Hemoglobin 13.1 g/dL (12.0-15.0); Immature Granulocytes Count 0.280 X10^3/uL (0.0-0.0); Mean Corp Hgb Conc 37.3 g/dL (32-36); Mean Corpuscular Volume 90.0 fL (81-99); Mean Platelet Vol. 11.8 fl (6.2-12.0); NRBC Flagged by Analyzer 0.3 % (0-5); POSITIVE DIFFERENTIAL YES; Platelet Count 191 K/mm3 (150-450); RBC Distribution Width CV 14.6 % (11.6-14.6); RBC Distribution Width SD 47.8 fl (35.1-43.9); Red Blood Count 3.90 M/mm3 (4.2-5.4); White Blood Count 15.2 K/mm3 (4.4-11.0)
[2025-04-24 18:57] LABS: Differential Indicated SCAN CRITERIA MET
[2025-04-24 19:22] LABS: Syphilis Antibodies Nonreactive (Nonreactive)
[2025-04-24 20:35] LABS: Differential Comment SCANNED
[2025-04-24] MEDS: Lactated Ringers 1,000 ML 50 ML IV (20:55)
[2025-04-24] MEDS: Oxytocin 15 Units/NS 250ml 15 UNITS/250 ML IV.SOLN 2 UNITS IV (20:56)
[2025-04-24] MEDS: 0.9% Normal Saline Single 100 ML IV.SOLN. INTRA-UTER (21:18)
[2025-04-24] MEDS: Penicillin G Pot 5,000,000 UNITS in 0.9% Normal Saline (100mL MB+) 100 ML 150 UNITS IV (21:42)
[2025-04-25] VITALS (47 sets, daily range): BP systolic 86–156; BP diastolic 51–89; PULSE 72–111; RESP 15–18; TEMP 35.9–36.9; O2SAT 97–100
[2025-04-25] MEDS: Penicillin G 3,000,000 Units 50 ML 100 UNITS IV ×2 (00:45→05:33)
[2025-04-25] MEDS: Lactated Ringers 1,000 ML 999 ML IV ×2 (03:40→07:40)
[2025-04-25] MEDS: fentaNYL-bupivacaine (epidural) 100 ML BAG EPIDURAL (04:33)
[2025-04-25] MEDS: TRANEXAMIC ACID 1,000 MG in 0.9% Normal Saline (100mL Bag) 100 ML 440 MG IV (08:19)
[2025-04-25] MEDS: Oxytocin 15 Units/NS 250ml 15 UNITS/250 ML IV.SOLN 334 UNITS IV (08:32)
--- NOTE | 2025-04-25 08:55 | EX.PCM.OBVAG ---
Assessment & Plan (1) Oligohydramnios in third trimester: (2) GBS (group B streptococcus) UTI complicating : COMMENT: pcn in labor (3) 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 : COMMENT: negative labs (4) Placenta succenturiata: QUALIFIERS: Trimester: third trimester Qualified Code(s): O43.193 - Other malformation of placenta, third trimester COMMENT: DOC only delivery -velamentous cord insertion. Growth US Q4/ok to do [facility] for cost if issue w [facility] employee. NST weekly with us at 36 wk. (5) Abnormal ultrasound: COMMENT: MRI confirmed intrauterine with one normal placenta. (6) Supervision of high-risk : QUALIFIERS: Trimester: third trimester Qualified Code(s): O09.93 - Supervision of high risk , unspecified, third trimester COMMENT: PRR , TETO 05/13/25 boy PC Angelito Yayo (7) : QUALIFIERS: Weeks of gestation: 37 weeks Qualified Code(s): Z3A.37 - 37 weeks gestation of COMMENT: GBS neg, NIPT low risk, carrier declined. echo(IVF ) and growth US Q4wk. Maternal Data Information TETO Calculator Estimated Delivery Date Method Current WG Current Estimate 05/13/25 Conception 37w 3d Other Estimates 05/20/25 Ultrasound #1 36w 3d Vaginal Delivery Maternal Presentation Maternal Presentation: see assessment and plan Vaginal Delivery Information Procedure Performed: Spontaneous Vaginal Delivery Surgeon/Practitioner: Nat Tellez Pre-Procedure Diagnosis: see assessment and plan Post-Procedure Diagnosis: same Type of anesthesia: Epidural Estimated Blood Loss: 700 Findings Description of procedure: Patient began pushing and delivered the head in the TYRELL presentation. The head was delivered atraumatically and a loose nuchal cord ×1 was identified and easily reduced over the infant's head. The anterior and posterior shoulders delivered without complication followed by the rest of the and the was placed on the maternal abdomen. Delayed cord clamping was employed for approximately 60 seconds. Cord was clamped and cut and gentle traction was applied to the cord and the placenta delivered spontaneously but with some manual removal immediately following it was noted to be intact but falling apart with three-vessel cord. it was a signficantly velamentous cord insertion. bedside ultrasound was performed, bedside curettage after betadine prep was performed, and manual exploration digitally was done. The perineum and vagina were inspected and noted to have no laceration. EBL was 700. Patient and tolerated delivery well. Presentation: Vertex Placental Delivery Description: Spontaneous Specimen collected: Yes Description of specimen(s) removed: placenta Elephant Keeper regulatory manager: No Post Vaginal Deli Medications given after delivery: IV Pitocin, IM Pitocin, IM Methergin, IM Hemabate and Other (pitocin) Complication Complications: No Multi Select Codes Urinary/Genital Urinary/Genital CPT Codes: 68737 Vaginal Delivery [facility]
--- NOTE | 2025-04-25 09:08 | DCINST_ITS ---
Discharge Instructions DC O2, CPAP, BIPAP needs Home O2 Discharge instructions: No Dressing / Incision Discharge Activity: Return to Normal Activity, May Not Drive (while taking narcotic pain medications.) and May Shower May resume sexual activity in: 4-6 weeks Dressing / Incision Call your doctor if your incision/area has: Continuous Slow Oozing, Sudden Increased Bleeding, Increased Pain/ Swelling, Increased Redness and Foul Smelling Discharge Follow Up Care Please Follow Up With: Nat Tellez MD When: Call [phone] to make an appointment with your doctor in 6 weeks. If you had elevated blood pressure or 4th degree laceration, you will need to be seen in 2 weeks. Test Results: Test results from this visit will be discussed in further detail at your follow- up appointment, if applicable. Discharge Plan Admission Admit Date/Time: 04/24/25 17:34 Attending Provider: Nat Tellez Primary Care Provider: Tatyana Matta Discharge Orders/Prescriptions Prescriptions: No Action PNV no.63-iron,[id number] 27 mg iron- 800 mcg-200 mg capsule 1 cap PO QDAY Referrals / Follow Up: Tatyana Matta MD [Primary Care Provider, Internal Medicine]
[2025-04-25] MEDS: Oxytocin 15 Units/NS 250ml 15 UNITS/250 ML IV.SOLN 83 UNITS IV (09:10)
[2025-04-25] MEDS: Cefazolin 2 GM in 0.9% Normal Saline (100mL Bag) 100 ML IV ×2 (09:51→18:02)
[2025-04-25] MEDS: 0.9% Saline Lock 10 ML Syringe IV (18:02)
[2025-04-26] VITALS (13 sets, daily range): BP systolic 89–114; BP diastolic 48–62; PULSE 82–92; RESP 15–16; TEMP 36.3–36.9; O2SAT 96–99
--- NOTE | 2025-04-26 06:37 | NURSING ---
called to unit and to verbally give order for CBC this morning for pt.
[2025-04-26 06:44] LABS: Hematocrit 24.8 % (37-47); Hemoglobin 8.9 g/dL (12.0-15.0); Immature Granulocytes Count 0.200 X10^3/uL (0.0-0.0); Mean Corp Hgb Conc 35.9 g/dL (32-36); Mean Corpuscular Volume 93.6 fL (81-99); Mean Platelet Vol. 11.9 fl (6.2-12.0); NRBC Flagged by Analyzer 0.2 % (0-5); Platelet Count 162 K/mm3 (150-450); RBC Distribution Width CV 15.1 % (11.6-14.6); RBC Distribution Width SD 50.4 fl (35.1-43.9); Red Blood Count 2.65 M/mm3 (4.2-5.4); White Blood Count 14.8 K/mm3 (4.4-11.0)
--- NOTE | 2025-04-26 10:44 | PN.OBGYN_ITS ---
Subjective Subjective Patient doing well without complaints. Tolerating PO. Ambulating and voiding without difficulty. feeding well. Denies chest pain, shortness of breath, calf pain/swelling, fevers, chills, lightheadedness. Objective Data Objective Data Vital Signs: Vital Signs Temp Pulse Resp BP Pulse Ox O2 Del Method 97.9 F 92 15 101/60 99 Room Air 04/26/25 08:30 04/26/25 08:30 04/26/25 08:30 04/26/25 08:30 04/26/25 04:35 04/26/25 04:35 Oxygen Delivery Method Room Air Weight: 222 lb 10.67 oz Body Mass Index (BMI) 34.9 Intake & Output: Intake and Output for Last 24 Hours 04/24/25 04/25/25 04/26/25 23:59 23:59 23:59 Intake Total 108.80 / 108.80 3562.05 / 3562.05 Output Total 2200 / 2200 Balance 108.80 / 108.80 1362.05 / 1362.05 Lab / Micro Data 04/26/25 06:32 Labs: Laboratory Results - last 24 hr 04/26/25 06:32: WBC 14.8 H, RBC 2.65 L, Hgb 8.9 L, Hct 24.8 L, MCV 93.6, MCH 33.6 H, MCHC 35.9, RDW Std Deviation 50.4 H, RDW Coeff of Evens 15.1 H, Plt Count 162, MPV 11.9, Immature Gran % (Auto) 1.400 H, Neut % (Auto) 72.9 H, Lymph % (Auto) 15.6 L, [place] % (Auto) 7.8, Eos % (Auto) 1.8, Baso % (Auto) 0.5, Absolute Neuts (auto) 10.8 H, Absolute Lymphs (auto) 2.30, Nucleated RBC % 0.2 ROS Constitutional Constitutional: Reports systems reviewed and no addt'l complaints, except as documented Cardiovascular Cardiovascular: Reports systems reviewed and no addt'l complaints, except as documented Respiratory/Chest Respiratory/Chest: Reports systems reviewed and no addt'l complaints, except as documented Gastrointestinal Gastrointestinal: Reports systems reviewed and no addt'l complaints, except as documented Physical Exam Const alert, oriented x3 and no apparent distress HEENT Head and Scalp: atraumatic Resp normal respiratory effort GI soft to palpation and non-tender Bimanual Exam - Vag & Uterus: uterus non-tender Uterus Palpation: uterus fundus firm (below Umbilicus) Assessment & Plan (1) Vaginal delivery: COMMENT: sm pph retained membranes atony boy frantz (2) atony of uterus with hemorrhage: (3) Anemia due to blood loss: PLAN: Plan routine care, bleeding WNL antibiotics given, repeat cbc at noon. anemia due to blood loss hemorrhage
[2025-04-26 12:53] LABS: Hematocrit 26.4 % (37-47); Hemoglobin 9.8 g/dL (12.0-15.0); Immature Granulocytes Count 0.130 X10^3/uL (0.0-0.0); Mean Corp Hgb Conc 37.1 g/dL (32-36); Mean Corpuscular Volume 93.6 fL (81-99); Mean Platelet Vol. 12.1 fl (6.2-12.0); NRBC Flagged by Analyzer 0.1 % (0-5); Platelet Count 186 K/mm3 (150-450); RBC Distribution Width CV 15.2 % (11.6-14.6); RBC Distribution Width SD 50.7 fl (35.1-43.9); Red Blood Count 2.82 M/mm3 (4.2-5.4); White Blood Count 14.8 K/mm3 (4.4-11.0)
[2025-04-27 02:00] VITALS: BP 102/58; PULSE 84; RESP 16; TEMP 36.3; O2SAT 95
[2025-04-27 03:05] VITALS: BP 102/58; PULSE 81; TEMP 36.3; O2SAT 95
[2025-04-27 07:32] VITALS: BP 118/76; PULSE 86
[2025-04-27 07:34] VITALS: TEMP 36.5
[2025-04-27 07:49] VITALS: BP 118/76; PULSE 86; RESP 16; TEMP 36.5
--- NOTE | 2025-04-27 09:19 | PCM.PN.OB ---
Subjective Subjective Patient doing well without complaints. Tolerating PO. Ambulating and voiding without difficulty. feeding well. Denies chest pain, shortness of breath, calf pain/swelling, fevers, chills, lightheadedness. Objective Data Objective Data Vital Signs: Vital Signs Temp Pulse Resp BP Pulse Ox O2 Del Method 97.7 F L 86 16 118/76 95 Room Air 04/27/25 07:49 04/27/25 07:49 04/27/25 07:49 04/27/25 07:49 04/27/25 03:05 04/27/25 02:00 Oxygen Delivery Method Room Air Weight: 222 lb 10.67 oz Body Mass Index (BMI) 34.9 Intake & Output: Intake and Output for Last 24 Hours 04/25/25 04/26/25 04/27/25 23:59 23:59 23:59 Intake Total 3562.05 / 3562.05 Output Total 2200 / 2200 Balance 1362.05 / 1362.05 Lab / Micro Data 04/26/25 12:40 Labs: Laboratory Results - last 24 hr 04/26/25 12:40: WBC 14.8 H, RBC 2.82 L, Hgb 9.8 L, Hct 26.4 L, MCV 93.6, MCH 34.8 H, MCHC 37.1 H, RDW Std Deviation 50.7 H, RDW Coeff of Evens 15.2 H, Plt Count 186, MPV 12.1 H, Immature Gran % (Auto) 0.900, Neut % (Auto) 73.9 H, Lymph % (Auto) 16.1 L, [place] % (Auto) 6.6, Eos % (Auto) 2.1, Baso % (Auto) 0.4, Absolute Neuts (auto) 10.9 H, Absolute Lymphs (auto) 2.38, Nucleated RBC % 0.1 ROS Constitutional Constitutional: Reports systems reviewed and no addt'l complaints, except as documented Cardiovascular Cardiovascular: Reports systems reviewed and no addt'l complaints, except as documented Respiratory/Chest Respiratory/Chest: Reports systems reviewed and no addt'l complaints, except as documented Gastrointestinal Gastrointestinal: Reports systems reviewed and no addt'l complaints, except as documented Physical Exam Const alert, oriented x3 and no apparent distress HEENT Head and Scalp: atraumatic Resp normal respiratory effort GI soft to palpation and non-tender Bimanual Exam - Vag & Uterus: uterus non-tender Uterus Palpation: uterus fundus firm (below Umbilicus) Assessment & Plan (1) Vaginal delivery: COMMENT: sm pph retained membranes atony pepe landry (2) atony of uterus with hemorrhage: (3) Anemia due to blood loss: PLAN: Plan routine care, bleeding WNL antibiotics given, repeat cbc at noon. anemia due to blood loss hemorrhage
--- NOTE | 2025-05-03 10:18 | PCM.DC.SUM ---
Providers Date of Admission: 04/24/25 Primary Care Physician: Dr. Tatyana Matta MD Reason For Visit: LABOR Diagnosis Discharge Diagnosis (1) Vaginal delivery: Status: Acute Code(s): O80 - Encounter for full-term uncomplicated delivery (2) atony of uterus with hemorrhage: Status: Acute Code(s): O72.1 - Other immediate hemorrhage (3) Anemia due to blood loss: Status: Acute Code(s): D50.0 - Iron deficiency anemia secondary to blood loss (chronic) Plan routine care, bleeding WNL antibiotics given, repeat cbc at noon. anemia due to blood loss hemorrhage Medications at Discharge Home Medications PNV no.63-iron,carbonyl 27 mg-folic acid 800 mcg-dha 200 mg capsule 1 cap PO QDAY 10/02/24 Hospital Course Summary of Care Provided Hospital Course: iol secondary to oligo, delivered with PPH. routine recovery dc home ppd 2 Weight / BMI Weight Weight: 222 lb 10.67 oz Body Mass Index (BMI) 34.9 ABG / Lab / Microbiology Data 04/26/25 12:40 D/C Instructions May resume sexual activity in: 4-6 weeks Call your doctor if your incision/area has: Continuous Slow Oozing, Sudden Increased Bleeding, Increased Pain/ Swelling, Increased Redness and Foul Smelling Discharge DC O2, CPAP, BIPAP Needs Home O2 Discharge instructions: No Please Follow Up With: Nat Tellez MD When: Call [phone] to make an appointment with your doctor in 6 weeks. If you had elevated blood pressure or 4th degree laceration, you will need to be seen in 2 weeks. Meaningful Use Info Meaningful Use Meaningful Use Diagnoses (Choose all that apply): None applicable Discharge Plan Admission Admit Date/Time: 04/24/25 17:34 Attending Provider: Nat Tellez Primary Care Provider: Tatyana Matta Discharge Orders/Prescriptions Prescriptions: No Action PNV no.63-iron,ucyktynt-UQ-ctx 27 mg iron- 800 mcg-200 mg capsule 1 cap PO QDAY Referrals / Follow Up: Tatyana Matta MD [Primary Care Provider, Internal Medicine] Disposition Disposition (needs filled in before D/C Order can be placed): Home, Self Care
== END 2025-04-27 10:20 | disposition home or self-care (01) | DRG 806 ==
LOC: WPOUT 17:44 → WP 17:44
PROVIDERS: Admitting Provider Obstetrics & Gynecology; PCP Internal Medicine; Referring Provider Obstetrics & Gynecology; Visit Provider Obstetrics & Gynecology
DX: O41.03X0 Oligohydramnios, third trimester, not applicable or unspecified (principal); Z37.0 Single live birth; O98.82 Other maternal infectious and parasitic diseases complicating childbirth; O72.1 Other immediate postpartum hemorrhage; D62 Acute posthemorrhagic anemia; O36.5930 Maternal care for other known or suspected poor fetal growth, third trimester, not applicable or unspecified; B95.1 Streptococcus, group B, as the cause of diseases classified elsewhere; O43.193 Other malformation of placenta, third trimester; O69.81X0 Labor and delivery complicated by cord around neck, without compression, not applicable or unspecified; O90.81 Anemia of the puerperium; Z3A.37 37 weeks gestation of pregnancy; Z87.59 Personal history of other complications of pregnancy, childbirth and the puerperium
CPT/HCPCS: 59025; 59050; 76815; 85025; 86780; 86850; 86900; 86901; 99221; A4216; G0378; J0675; J2405

== ENCOUNTER → 2025-06-02 | Outpatient (CLI) | payer OTHER, SELFPAY | END | disposition home or self-care (01) | LOC: LABSPEC 16:20 | PROVIDERS: PCP Internal Medicine; Visit Provider Student in an Organized Health Care Education/Training Program | DX: N89.8 Other specified noninflammatory disorders of vagina (principal) | CPT/HCPCS: 87070; 87205 ==